=== PATIENT | male | born 1940 | race Caucasian/White ===

== ENCOUNTER 2020-10-24 12:55 | Observation (INO) | payer MEDICARE, MEDICAID, SELFPAY ==
[2020-10-24] VITALS (11 sets, daily range): BP systolic 97–111; BP diastolic 50–88; PULSE 74–84; RESP 14–20; TEMP 36.2; O2SAT 96–99; BMI 36.4
--- NOTE | ~2020-10-24 | CT_ITS ---
EXAMINATION: CT brain wo con DATE: 10/24/2020 14:23 INDICATION: Confusion. Hallucinations. TECHNIQUE: Computed tomography (CT) of the head was performed without intravenous contrast. The mA wa s adjusted according to patient size. Iterative reconstruction technique was employed. The dose-lengt h product was 681.00 mGy-cm. COMPARISON: None FINDINGS: At the right side of the frontal falx, there is a 12 mm calcified mass, consistent with a m eningioma. There is an old infarct in right occipital lobe. There are scattered areas of low attenuat ion in the cerebral white matter. There is no acute ischemic infarct or intracranial hemorrhage. The ventricles are normal in size. There is mucosal thickening in the paranasal sinuses. There is thicken ing and sclerosis of the benz of the sphenoid sinus, consistent with chronic sinusitis. There are tr prince bilateral mastoid effusions. There are likely changes of ocular lens replacement surgeries. IMPRESSION: 1. 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 2. 12 mm meningioma at the right side of the frontal falx. 3. Moderate nonspecific cerebral white matter disease, which likely represents chronic small vessel i schemic disease. 4. Chronic sinusitis. Reviewed, dictated and finalized at location A. IMPRESSION: 1. 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 2. 12 mm meningioma at the right side of the frontal falx. 3. Moderate nonspecific cerebral white matter disease, which likely represents chronic small vessel ischemic disease. 4. Chronic sinusitis.
--- NOTE | ~2020-10-24 | XR_ITS ---
XR chest 1V portable DATE: 10/25/2020 05:45 INDICATION: Shortness of breath TECHNIQUE: Portable AP chest on 10/25/2020 at 0530 hours COMPARISON: None FINDINGS: Cardiomegaly. Aortic calcification. There is pulmonary vascular congestion and redistribution. Small pleural effusions are suggested. There is patchy infiltrate and/atelectasis in the mid and to a greater extent lower lung zones. Conge stive heart failure, pneumonia and aspiration pneumonitis are considerations in the differential diag nosis. Severe bilateral glenohumeral osteoarthritis. Degenerative spurring of the thoracic spine. Diffuse osteopenia. IMPRESSION: Cardiomegaly, congestive heart failure Patchy mid and to a greater extent lower lung zone infiltrates which may be due to pulmonary edema, p neumonia and/or aspiration pneumonitis Reviewed, dictated and finalized at location A. IMPRESSION: Cardiomegaly, congestive heart failure Patchy mid and to a greater extent lower lung zone infiltrates which may be due to pulmonary edema, pneumonia and/or aspiration pneumonitis
--- NOTE | ~2020-10-24 | US_ITS ---
EXAMINATION: US venous doppler [facility] DATE: 10/25/2020 13:01 INDICATION: Lower limb edema TECHNIQUE: Vitale scale images without and with compression and Doppler images of the bilateral lower e xtremity veins were obtained. COMPARISON: None FINDINGS: The right common femoral vein, profunda femoral vein, femoral vein, popliteal vein, peroneal trunk, p osterior tibial veins, and greater saphenous vein are patent. The left common femoral vein, profunda femoral vein, femoral vein, popliteal vein, peroneal trunk, po sterior tibial veins, and greater saphenous vein are patent. IMPRESSION: 1. Patent bilateral lower extremity veins. No evidence of deep venous thrombosis. Reviewed, dictated and finalized at location B. IMPRESSION: 1. Patent bilateral lower extremity veins. No evidence of deep venous thrombosi s.
--- NOTE | 2020-10-24 12:58 | ECG_ITS ---
Measurements Intervals [place] Rate: 74 P: PA: 0 QRS: 105 QRSD: 120 T: 22 QT: 410 QTc: 456 Interpretive Statements ATRIAL FLUTTER/TACHYCARDIA VENTRICULAR PREMATURE COMPLEXES RIGHT AXIS DEVIATION INTRAVENTRICULAR CONDUCTION DELAY LOW VOLTAGE- LIMB LEADS ABNORMAL ECG Electronically Signed On 10-25-2020 7:47:49 CDT by Waqas Shankar D.O.
[2020-10-24 14:57] LABS: Basophils Percent Auto 0.3 % (0.2-1.2); Eosinophils Percent Auto 0.5 % (0-4.4); Hematocrit 29.3 % (42.0-52.0); Hemoglobin 7.9 g/dL (14.0-18.0); Immature Granulocyte Absolute 0.08 K/mm3 (0.00-0.031); Immature Granulocyte Percent A 1.1 % (0-0.5); Immature Platelet Fraction Pct 9.1 % (0.9-11.2); Lymphocytes Absolute Auto 0.42 K/mm3 (0.9-3.2); Lymphocytes Percent Auto 5.7 % (18.3-44.2); Mean Corpuscular Hemoglobin 21.5 pg (26-34); Mean Corpuscular Volume 79.8 fl (80-100); Mean Platelet Volume 10.9 fl (7.4-10.4); Monocytes Absolute Auto 0.9 K/mm3 (0.1-0.6); Monocytes Percent Auto 12.2 % (2.6-8.5); Neutrophils Absolute Auto 5.9 K/mm3 (1.3-6.7); Neutrophils Percent Auto 80.2 % (45.5-73.1); Nucleated Red Blood Cells Perc 0.4 % (0.0-0.2); Platelet Count Result 146 k/mm3 (150-375); Red Blood Count 3.67 M/mm3 (4.6-6.20); White Blood Count 7.3 K/mm3 (4.5-10.0)
[2020-10-24 15:05] LABS: INR 1.1; Prothrombin Time 14.3 Seconds (11.1-14.7)
[2020-10-24 15:11] LABS: Lactic Acid Reflex 0.9 mmol/L (0.7-2.1)
[2020-10-24 15:12] LABS: Alanine Aminotransferase 21 U/L (4-50); Alkaline Phosphatase 105 U/L (38-126); Anion Gap 4 mmol/L (8-16); Aspartate Amino Transferase 22 U/L (17-59); Bilirubin,Total 0.6 mg/dL (0.2-1.3); Blood Urea Nitrogen 39 mg/dL (9-20); Calcium 8.3 mg/dL (8.4-10.2); Carbon Dioxide 29 mmol/L (22-30); Chloride 102 mmol/L (98-107); Estimated CRCL calculation 43 ml/min; Estimated Glomerular Filt Rate 49; Glucose 126 mg/dL (65-110); Potassium 5.3 mmol/L (3.4-5.0); Sodium 135 mmol/L (137-145)
[2020-10-24 15:22] LABS: Hypochromasia 1+ (NORMAL); Platelet Estimate Adequate (Adequate); Poikilocytosis 1+ (NORMAL)
[2020-10-24 15:23] LABS: Anisocytosis 2+ (NORMAL); Ovalocytes 1+ (NORMAL)
[2020-10-24 15:24] LABS: NT Pro B Type Natriuretic Pept 4910 pg/mL (5-100); Troponin I < 0.012 ng/mL (0.000-0.034)
--- NOTE | 2020-10-24 16:07 | PC.NURSE ---
SPOKE WITH VAISHNAVI TIWARI OF PT AND GAVE UPDATE ON PT'S CONDITION.
[2020-10-24 16:32] LABS: Add Urine Microscopic? NO; Appearance Urine Clear (Clear); Bilirubin Urine Negative (Negative); Blood Urine Negative (Negative); Color Urine Yellow (Yellow); Glucose Urine UA Negative (Negative); Ketones Urine Negative (Negative); Leukocyte Esterase Ur Negative LEU/UL (Negative); Nitrate Urine Negative (Negative); Protein Urine Negative (Negative); Specific Grav Ur 1.017 (1.001-1.035); Urobilinogen Urine Negative mg/dL (<2.0)
--- NOTE | 2020-10-24 16:50 | ED.AMS ---
HPI - Altered Mental Status General Chief Complaint: Altered Mental Status Stated Complaint: AMS X 1 WEEK Time Seen by Provider: 10/24/20 13:03 Source: patient and family Mode of arrival: EMS Limitations: altered mental status History of Present Illness HPI narrative: 80-year-old with a history of hypertension diabetes, CHF was brought in by daughter with complaints of marked confusion since this morning as per the daughter patient has been calling his dog anteater , put all the money in the washer and has been disoriented since this morning. Not much of history can be obtained from the patient. He denied any chest pain . No history of fever or chills. Denies any cough. Patient lives by himself at home. MD complaint: altered mental status and confusion Onset (ago): day(s) (1) Timing confirmed by: family member Severity: moderate Associated symptoms: denies other symptoms Related Data Home Medications Medication Instructions Recorded Confirmed dextromethorphan-quinidine cap 10/24/20 [Nuedexta] enalapril maleate 10/24/20 enalapril maleate 10/24/20 10/24/20 furosemide 10/24/20 glipizide mg PO 10/24/20 metformin mg 10/24/20 pantoprazole PO 10/24/20 pregabalin 10/24/20 tamsulosin mg PO 10/24/20 tapentadol [Nucynta ER] mg PO 10/24/20 Allergies Allergy/AdvReac Type Severity Reaction Status Date / Time No Known Allergies Allergy Verified 10/24/20 14:40 Review of Systems Review of Systems: ROS unobtainable: Yes unobtainable due to mental status Exam Narrative: GENERAL: Confused , well-nourished, and in no acute distress. HEAD: Normocephalic, atraumatic. EYES: PERRLA and EOMI.. NECK: Supple. CHEST: No respiratory distress. Bilateral basilar crackles. HEART: Regular rate and rhythm. No murmur heard. Normal peripheral pulses. ABDOMEN: Soft, nontender, nondistended, normal active bowel sounds. Obese abdomen EXTREMITIES: Normal range of motion. 2+ edema. Old bruises noted on both knees. SKIN: Warm, dry, no rash. NEURO: No focal deficits. Alert Course Course Emergency Course: Patient still seems to be confused, informed him about the lab work stockings is not in the room to inform her about the lab work and x-ray findings. We will admit him to the hospital I discussed with Criselda washington admit the patient. Vital Signs Vital signs: Vital Signs Temperature 36.2 C L 10/24/20 13:00 Pulse Rate 84 10/24/20 13:00 Respiratory Rate 14 10/24/20 13:00 Blood Pressure 104/88 10/24/20 13:00 Pulse Oximetry 96 10/24/20 13:00 Temperature 36.2 C L 10/24/20 13:00 Pulse Rate 74 10/24/20 16:42 Respiratory Rate 16 10/24/20 16:42 Blood Pressure 101/67 10/24/20 16:42 Pulse Oximetry 99 10/24/20 16:42 MDM - Altered Mental Status MDM Narrative Medical decision making narrative: With a history of CHF and confusion will do a septic work-up as well as give him Lasix for CHF. Lab Data Result diagrams: 10/24/20 14:48 10/24/20 14:48 Labs: Lab Results 10/24/20 10/24/20 10/24/20 Range/Units 14:47 14:48 14:48 WBC 7.3 (4.5-10.0) K/mm3 RBC 3.67 L (4.6-6.20) M/mm3 Hgb 7.9 L (14.0-18.0) g/dL Hct 29.3 L (42.0-52.0) % MCV 79.8 L (80-100) fl MCH 21.5 L (26-34) pg MCHC 27.0 L (32-36) g/dl RDW 21.0 H (11.5-14.5) % Plt Count 146 L (150-375) k/mm3 MPV 10.9 H (7.4-10.4) fl Immature Gran % (Auto) 1.1 H (0-0.5) % Neut % (Auto) 80.2 H (45.5-73.1) % Lymph % (Auto) 5.7 L (18.3-44.2) % [place] % (Auto) 12.2 H (2.6-8.5) % Eos % (Auto) 0.5 (0-4.4) % Baso % (Auto) 0.3 (0.2-1.2) % Lymph # (Auto) 0.42 L (0.9-3.2) K/mm3 [place] # (Auto) 0.9 H (0.1-0.6) K/mm3 Eos # (Auto) 0.0 (0-0.3) K/mm3 Baso # (Auto) 0.0 (0.0-0.1) K/mm3 Abs Immat Gran (auto) 0.08 H (0.00-0.031) K/mm3 Absolute Neuts (auto) 5.9 (1.3-6.7) K/mm3 Absolute Nucleated RBC 0.0 (0.0-0.012) K/mm3 Nucleated
[2020-10-24] MEDS: NITROGLYCERIN OINTMENT 1 INCH DOSE (18:46)
[2020-10-24] MEDS: FUROSEMIDE INJ 40 MG/4 ML VIAL (18:47)
--- NOTE | 2020-10-24 19:43 | ADMGEN ---
This patient, Zack Orellana, was admitted to Medical Room 244-. Patient/family oriented to hospital policies and general routines including ID bracelet, bed and alarms, visiting hours, pain management, procedures, bathroom and other care routines, personal items, smoking policy, room service/diet, and visiting hours. Information on how to activate the Rapid Response Team has been discussed. Patient/Family are encouraged to report perceived risks to care and to ask questions if they do not understand what they are told or what they should do.
--- NOTE | 2020-10-24 20:45 | PM.IMHP ---
H&P: HPI History of Present Illness Date/Time: 10/24/20 20:45 Chief Complaint: Altered mental status. Narrative: This is an 80-year-old male with hypertension, paroxysmal atrial fibrillation, coronary artery disease, congestive heart failure, chronic respiratory failure on oxygen, GERD, benign prostatic hyperplasia, and diabetes who presented to the emergency department earlier today via EMS for evaluation of altered mental status. At baseline the patient is typically quite spry however over the past 1 week or so his granddaughter has noticed that he has been confused. This morning he was disoriented and exhibiting bizarre behavior such as seeing anteaters in his home and washing money in the washing machine. He had an appointment today with his fitting room checker for an iron infusion though that was not given and instead he was brought to the emergency department. Brain CT showed no acute findings but his labs did show increased BUN and creatinine as well as hyperkalemia. He is uncertain if he has any chronic kidney problems and he has never been seen at this facility before thus it is hard to say if this is acute. He has not had any recent illnesses and has not had any specific complaints according to the granddaughter, who visits him daily. At the time my evaluation the patient is resting comfortably though he is not the greatest historian. He is aware that he is in the hospital but cannot provide me in what situation he was brought here today. He has no complaints and specifically denies fever, chills, sweats, chest pain, shortness of breath, nausea, vomiting, diarrhea, and dysuria. He does not think he has had any falls and denies focal weakness and paresthesias. Of note the patient was recently started on Nuedexta for pseudobulbar affect as granddaughter says he has been having random crying episodes. To my knowledge that is only new medication he has been started on recently. No mention of alcohol or drug use. It is unknown when he last had his pain pump filled or if it even contains medication. He does not use alcohol or illicit substances. Review of Systems Review of Systems: Twelve systems were reviewed with pertinent positives and negatives as per HPI. The accuracy is questionable given the patient's confusion. Except as documented, all other systems were reviewed and are negative. [facility] Past Medical History Medical History (Updated 10/25/20 @ 00:06 by Ashley Olivo PA-C) Arthritis Benign prostatic hyperplasia Chronic pain Patient had a pain pump inserted in February 2019. Chronic respiratory failure with hypoxia, on home oxygen therapy Congestive heart failure Coronary artery disease Gastroesophageal reflux disease History of bleeding peptic ulcer Hypertension Iron deficiency anemia Receives frequent iron infusions. Paroxysmal atrial fibrillation Pseudobulbar affect Spinal stenosis Type 2 diabetes mellitus Surgical History Surgical History (Updated 10/25/20 @ 00:03 by Ashley Olivo PA-C) History of bilateral cataract extraction Family History Family History Father Acute myocardial infarction Sibling Acute myocardial infarction Brain aneurysm Other No problems noted. Mother Breast cancer Social History Social History (Updated 10/25/20 @ 00:04 by Ashley Olivo PA-C) Social History: Healthcare power of assistant attorney general: Lennie Cruz, granddaughter. Code status: Full code. Smoking packs per day: 3 Smoking cigarettes per day: 60.0 Years smoked: 40 Smoking pack-years: 120.00 Smoking status: Former smoker Tobacco type: cigarettes Alcohol intake: never Substance use: never Additional living arrangements comments: The patient lives in his own home in [place]. He ambulates with a walker but uses a wheelchair when he goes outside of the home. 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
[2020-10-24 22:15] LABS: Glucose Point of Care 117 mg/dl (65-105)
[2020-10-25] VITALS (10 sets, daily range): BP systolic 101–120; BP diastolic 41–65; PULSE 57–77; RESP 16–20; TEMP 36.1–36.7; O2SAT 90–98
--- NOTE | 2020-10-25 00:15 | ECHO_ITS ---
Patient Info Name: Zack Orellana Age: 80 years : 1940 Gender: Male Ht: 67 in Wt: 232 lbs BSA: 2.27 m2 HR: 74 bpm BP: 104 / 41 mmHg Heart Rhythm: Sinus Rhythm Technical Quality: Poor Exam Date: 10/25/2020 8:46 AM Exam Location: [facility] Patient Status: Outpatient Admit Date: 10/24/2020 Staff Ordering Physician: Ashley Olivo PA-C Army Ranger: Maria G Tejeda RDCS Attending Provider: Shana Lloyd MD Referring Physician: Geovani JULIAN; Exam Type: CA echo doppler color flow Study Info Indications - ATRIAL FLUTTER, CHF, CAD, HTN Complete two-dimensional, color flow and Doppler transthoracic echocardiogram is performed. Summary 1. Complete two-dimensional, color flow and Doppler transthoracic echocardiogram is performed. 2. Technically suboptimal study due to poor sonographic images. 3. Left ventricular chamber dimension is mildly enlarged. 4. There is moderately increased left ventricular wall thickness. 5. Left ventricular systolic function is preserved, estimated at 50-55%. 6. Left ventricular septal wall motion is abnormal with septal motion related to bundle branch block. 7. The left ventricular diastolic function is abnormal. 8. E/e' 10 is mildly elevated. 9. Left atrial chamber dimension is severely enlarged. 10. Right atrial chamber dimension is moderately enlarged. 11. There is moderate aortic valve sclerosis. 12. The mitral valve has moderately calcified annulus. 13. Moderate pulmonary hypertension, estimated pulmonary arterial systolic pressure is 54 mmHg. Left Ventricle Technically suboptimal study due to poor sonographic images. Left ventricular systolic function is preserved, estimated at 50-55%. Left ventricular chamber dimension is mildly enlarged. There is moderately increased left ventricular wall thickness. Left ventricular septal wall motion is abnormal with septal motion related to bundle branch block. The left ventricular diastolic function is abnormal. E/e' 10 is mildly elevated. Right Ventricle Right ventricular chamber dimension is not well visualized. Left Atria Left atrial chamber dimension is severely enlarged. Right Atria Right atrial chamber dimension is moderately enlarged. Aortic Valve The aortic valve is not well visualized. Cannot determine number of aortic valve leaflets. There is moderate aortic valve sclerosis. There is no aortic valve stenosis. There is no aortic valve regurgitation. Pulmonic Valve There is no pulmonic regurgitation. Mitral Valve The mitral valve has moderately calcified annulus. There is no mitral valve stenosis. There is no mitral valve regurgitation. Tricuspid Valve The tricuspid valve leaflets are not well visualized. There is no tricuspid valve regurgitation. Moderate pulmonary hypertension, estimated pulmonary arterial systolic pressure is 54 mmHg. Pericardium/Pleural There is no pericardial effusion. Inferior Vena Cava Normal inferior vena cava with >50% collapse upon inspiration consistent with normal right atrial pressure, 5 mmHg. Aorta The aortic root size at the sinus of Valsalva is not well visualized. Left Ventricular Outflow Tract Name Value Normal LVOT 2D LVOT Diameter
[2020-10-25 00:59] LABS: Ammonia 27 umol/L (9-30)
[2020-10-25 01:00] LABS: Anion Gap 3 mmol/L (8-16); Blood Urea Nitrogen 37 mg/dL (9-20); Calcium 8.2 mg/dL (8.4-10.2); Carbon Dioxide 29 mmol/L (22-30); Chloride 102 mmol/L (98-107); Estimated CRCL calculation 46 ml/min; Estimated Glomerular Filt Rate 53; Glucose 145 mg/dL (65-110); Magnesium 1.1 mg/dL (1.6-2.3); Potassium 4.9 mmol/L (3.4-5.0); Sodium 134 mmol/L (137-145)
[2020-10-25 01:03] LABS: Hemoglobin A1C 6.3 % (<5.7)
[2020-10-25 02:21] LABS: Alveolar/Arterial O2 Gradient 79.3 mmHg; Base Excess ABG 2.4 mEq/l (+/-2.0); Device NASAL CANNULA; Fractional Inspired Oxygen 32 %; Modified Allen's Test Pass; Oxygen Content ABG 11.5 %vol (16.0-22.0); Oxygen Saturation ABG 95.2 % (95.0-100.0); Oxyhemoglobin 93.1 % THb (90.0-100.0); PCO2 ABG 56.7 mmHg (35.0-45.0); PO2 ABG 82.5 mmHg (80.0-100.0); PO2 FiO2 Ratio Arterial Blood 2.58 %; Site Drawn LEFT RADIAL; Total Hemoglobin 8.7 g/dL (12.0-18.0); pH ABG 7.327 (7.350-7.450)
--- NOTE | 2020-10-25 04:05 | PC.NURSE ---
post void residual 169ml
[2020-10-25 05:29] LABS: Amphetamine Screen Urine Negative (Negative); Barbiturate Screen Urine Negative (Negative); Benzodiazepines Screen Urine Negative (Negative); Cannabinoid Screen Urine Negative (Negative); Cocaine Screen Urine Negative (Negative); Methadone Screen Urine Negative (Negative); Opiate Screen Urine Negative (Negative); Phencyclidine Screen Urine Negative (Negative)
[2020-10-25 05:54] LABS: Hemoglobin 7.8 g/dL (14.0-18.0); Immature Platelet Fraction Pct 9.1 % (0.9-11.2); Mean Corpuscular HGB Conc 26.9 g/dl (32-36); Mean Corpuscular Hemoglobin 21.3 pg (26-34); Platelet Count Result 146 k/mm3 (150-375); Red Blood Count 3.67 M/mm3 (4.6-6.20); Red Cell Distribution Width 20.9 % (11.5-14.5); White Blood Count 6.6 K/mm3 (4.5-10.0)
[2020-10-25 06:24] LABS: Alanine Aminotransferase 19 U/L (4-50); Alkaline Phosphatase 98 U/L (38-126); Anion Gap 6 mmol/L (8-16); Aspartate Amino Transferase 19 U/L (17-59); Bilirubin,Total 0.4 mg/dL (0.2-1.3); Blood Urea Nitrogen 34 mg/dL (9-20); Calcium 8.1 mg/dL (8.4-10.2); Carbon Dioxide 28 mmol/L (22-30); Chloride 97 mmol/L (98-107); Estimated CRCL calculation 54 ml/min; Estimated Glomerular Filt Rate > 60; Glucose 123 mg/dL (65-110); Potassium 4.8 mmol/L (3.4-5.0); Sodium 131 mmol/L (137-145)
[2020-10-25] MEDS: FUROSEMIDE INJ 40 MG/4 ML VIAL IV PUSH ×2 (10:03→17:54)
[2020-10-25] MEDS: ASPIRIN 81 MG CHEWABLE TABLET PO (10:03)
[2020-10-25] MEDS: PANTOPRAZOLE 40 MG TABLET PO (10:03)
[2020-10-25] MEDS: TAMSULOSIN HCL 0.4 MG CAPSULE PO (10:03)
[2020-10-25] MEDS: PREGABALIN (*CRX) 75 MG CAPSULE PO (10:09)
[2020-10-25 10:14] LABS: Glucose Point of Care 127 mg/dl (65-105)
[2020-10-25 12:47] LABS: Glucose Point of Care 148 mg/dl (65-105)
--- NOTE | 2020-10-25 12:51 | P.PNIM_ITS ---
Progress Note: A&P Assessment and Plan (1) Confusion: Code(s): R41.0 - Disorientation, unspecified Status: Acute Assessment and Plan: * Patient came to the ED for evaluation confusion and delirium * No new medications were started recently * Brain CT reports old infarcts no acute finding * No evidence of underlying infection * Chest x-ray shows pulmonary edema versus pneumonia * BUN and creatinine elevated could be dehydration * Telemetry * Labs * Q 4 neuro checks * May need MRI (2) Hypertension: Code(s): I10 - Essential (primary) hypertension Status: Acute Assessment and Plan: * Current blood pressure 104/54 * Marv Enalapril 5mg po daily * Hold home furosemide changing to 40 mg IV daily * Trend blood pressure * Adjust medications as needed as (3) Type 2 diabetes mellitus: Code(s): E11.9 - Type 2 diabetes mellitus without complications Status: Acute Assessment and Plan: * Glipizide and metformin on hold * hemoglobin A1c 6.3 * Initiate sliding scale insulin * Accu-Cheks a.c. HS * hypoglycemic protocol * Adjust medications (4) Iron deficiency anemia: Code(s): D50.9 - Iron deficiency anemia, unspecified Status: Acute Assessment and Plan: * Patient receives infusions frequently and was supposed to have one today. * tool repairer said patient can have a injection * Iron x2 bags ordered * Will start patient on oral iron 325 mg b.i.d. (5) Pseudobulbar affect: Code(s): F48.2 - Pseudobulbar affect Status: Acute Assessment and Plan: * Recently started on Nuedexta. I reviewed the side effects of that medication and there is no mention that it may cause confusion or mental status change. (6) Congestive heart failure: Code(s): I50.9 - Heart failure, unspecified Status: Acute Assessment and Plan: * Trace edema in the extremities * Lasix in the emergency department * Resume p.o. furosemide after 2 doses of IV Lasix * Echocardiogram EF 50-55% moderate pulmonary hypertension pressure 54 * Strict I&Os (7) Paroxysmal atrial fibrillation: Code(s): I48.0 - Paroxysmal atrial fibrillation Status: Acute Assessment and Plan: * EKG today showed atrial flutter with a rate of 74. * not on long-term anticoagulation, presumably due to his chronic anemia. (8) Chronic respiratory failure with hypoxia, on home oxygen therapy: Code(s): J96.11 - Chronic respiratory failure with hypoxia; Z99.81 - Dependence on supplemental oxygen Status: Acute Assessment and Plan: * He is at his baseline oxygen requirement. According to the granddaughter this is a new addition relatively recently. (9) Acute metabolic encephalopathy: Code(s): G93.41 - Metabolic encephalopathy Status: Acute Assessment and Plan: * see confusion (10) Hypomagnesemia: Code(s): E83.42 - Hypomagnesemia Status: Acute Assessment and Plan: * Magnesium 1.1 * Replace with 4 g IV * Trend a magnesium * Replace as needed * Labs in a.m. Time Spent With Patient Time with patient: 25 - 35 minutes Subjective Date/time seen: 10/25/20 11:23 Interval history: Patient is an 80 year old male with a past medical histo
--- NOTE | 2020-10-25 12:51 | PM.IMPN ---
Progress Note: A&P Assessment and Plan (1) Confusion: Code(s): R41.0 - Disorientation, unspecified Status: Acute Assessment and Plan: Patient came to the ED for evaluation confusion and delirium No new medications were started recently Brain CT reports old infarcts no acute finding No evidence of underlying infection Chest x-ray shows pulmonary edema versus pneumonia BUN and creatinine elevated could be dehydration Telemetry Labs Q 4 neuro checks May need MRI (2) Hypertension: Code(s): I10 - Essential (primary) hypertension Status: Acute Assessment and Plan: Current blood pressure 104/54 Marv Enalapril 5mg po daily Hold home furosemide changing to 40 mg IV daily Trend blood pressure Adjust medications as needed as (3) Type 2 diabetes mellitus: Code(s): E11.9 - Type 2 diabetes mellitus without complications Status: Acute Assessment and Plan: Glipizide and metformin on hold hemoglobin A1c 6.3 Initiate sliding scale insulin Accu-Cheks a.c. HS hypoglycemic protocol Adjust medications (4) Iron deficiency anemia: Code(s): D50.9 - Iron deficiency anemia, unspecified Status: Acute Assessment and Plan: Patient receives infusions frequently and was supposed to have one today. direct marketing representative said patient can have a injection Iron x2 bags ordered Will start patient on oral iron 325 mg b.i.d. (5) Pseudobulbar affect: Code(s): F48.2 - Pseudobulbar affect Status: Acute Assessment and Plan: Recently started on Nuedexta. I reviewed the side effects of that medication and there is no mention that it may cause confusion or mental status change. (6) Congestive heart failure: Code(s): I50.9 - Heart failure, unspecified Status: Acute Assessment and Plan: Trace edema in the extremities Lasix in the emergency department Resume p.o. furosemide after 2 doses of IV Lasix Echocardiogram EF 50-55% moderate pulmonary hypertension pressure 54 Strict I&Os (7) Paroxysmal atrial fibrillation: Code(s): I48.0 - Paroxysmal atrial fibrillation Status: Acute Assessment and Plan: EKG today showed atrial flutter with a rate of 74. not on long-term anticoagulation, presumably due to his chronic anemia. (8) Chronic respiratory failure with hypoxia, on home oxygen therapy: Code(s): J96.11 - Chronic respiratory failure with hypoxia; Z99.81 - Dependence on supplemental oxygen Status: Acute Assessment and Plan: He is at his baseline oxygen requirement. According to the granddaughter this is a new addition relatively recently. (9) Acute metabolic encephalopathy: Code(s): G93.41 - Metabolic encephalopathy Status: Acute Assessment and Plan: see confusion (10) Hypomagnesemia: Code(s): E83.42 - Hypomagnesemia Status: Acute Assessment and Plan: Magnesium 1.1 Replace with 4 g IV Trend a magnesium Replace as needed Labs in a.m. Time Spent With Patient Time with patient: 25 - 35 minutes Subjective Date/time seen: 10/25/20 11:23 Interval history: Patient is an 80 year old male with a past medical history of anemia that presented to the ED with confusion from [facility]. Today patient stated that he feels well and has no complaints. He was alert and oriented x 4 and was pretty sharp with information. Patient does have a low hemoglobin at 7.8. Sodium is also low and BNP is 4800. Patient is having good urine output. Patient also has patchy infiltrates noted on his chest x-ray that could be pulmonary edema, pneumonia or aspiration pneumonia. Patient currently has no complaints patient denies chest pain, shortness of breath, nausea, vomiting, diarrhea, constipation, fevers, sweats, chills. Review of Systems Review of Systems:
[2020-10-25] MEDS: MAGNESIUM SULF 4 GM/WATER100ML 4 GM/100 ML BAG IVPB (13:44)
[2020-10-25] MEDS: IRON SUCROSE COMPLEX 100 MG in SODIUM CHLORIDE 0.9% IV 50 ML 220 MG IVPB (17:53)
[2020-10-25] MEDS: FERROUS SULFATE 324 MG TABLET PO (17:54)
[2020-10-25 18:08] LABS: Glucose Point of Care 190 mg/dl (65-105)
[2020-10-25 23:00] LABS: Glucose Point of Care 166 mg/dl (65-105)
[2020-10-26] VITALS: PULSE 75
[2020-10-26 04:00] VITALS: BP 118/50; PULSE 76; PULSE 83; RESP 20; TEMP 36.1; O2SAT 99
[2020-10-26 05:52] LABS: Hematocrit 28.6 % (42.0-52.0); Hemoglobin 7.7 g/dL (14.0-18.0); Mean Corpuscular HGB Conc 26.9 g/dl (32-36); Mean Corpuscular Hemoglobin 20.8 pg (26-34); Mean Corpuscular Volume 77.3 fl (80-100); Platelet Count Result 144 k/mm3 (150-375); Red Cell Distribution Width 20.8 % (11.5-14.5); White Blood Count 5.5 K/mm3 (4.5-10.0)
[2020-10-26 06:16] LABS: Alanine Aminotransferase 15 U/L (4-50); Alkaline Phosphatase 98 U/L (38-126); Anion Gap 3 mmol/L (8-16); Aspartate Amino Transferase 19 U/L (17-59); Bilirubin,Total 0.5 mg/dL (0.2-1.3); Blood Urea Nitrogen 24 mg/dL (9-20); Calcium 8.3 mg/dL (8.4-10.2); Carbon Dioxide 35 mmol/L (22-30); Chloride 93 mmol/L (98-107); Estimated CRCL calculation 66 ml/min; Estimated Glomerular Filt Rate > 60; Glucose 123 mg/dL (65-110); Magnesium 1.4 mg/dL (1.6-2.3); Potassium 4.3 mmol/L (3.4-5.0); Sodium 131 mmol/L (137-145)
[2020-10-26] MEDS: MAGNESIUM SULF 4 GM/WATER100ML 4 GM/100 ML BAG IVPB (07:27)
[2020-10-26 08:00] VITALS: PULSE 78
[2020-10-26] MEDS: IRON SUCROSE COMPLEX 100 MG in SODIUM CHLORIDE 0.9% IV 50 ML 220 MG IVPB (08:25)
[2020-10-26] MEDS: FUROSEMIDE INJ 40 MG/4 ML VIAL IV PUSH (08:26)
[2020-10-26] MEDS: ASPIRIN 81 MG CHEWABLE TABLET PO (08:26)
[2020-10-26] MEDS: FERROUS SULFATE 324 MG TABLET PO (08:26)
[2020-10-26] MEDS: TAMSULOSIN HCL 0.4 MG CAPSULE PO (08:27)
[2020-10-26] MEDS: MAGNESIUM OXIDE 400 MG TABLET PO (08:27)
[2020-10-26] MEDS: PANTOPRAZOLE 40 MG TABLET PO (08:27)
[2020-10-26 08:47] LABS: Glucose Point of Care 114 mg/dl (65-105)
[2020-10-26 09:20] VITALS: BP 125/66; PULSE 78; RESP 16; TEMP 36.2; O2SAT 97
--- NOTE | 2020-10-26 09:59 | P.DS_ITS ---
DS: Admitting Diagnosis Admitting Diagnosis Altered mental status DS: Discharge Diagnosis Discharge Diagnosis (1) Confusion: Code(s): R41.0 - Disorientation, unspecified Status: Acute Assessment and Plan: * Patient came to the ED for evaluation confusion and delirium * No new medications were started recently * Brain CT reports old infarcts no acute finding * No evidence of underlying infection * Chest x-ray shows pulmonary edema versus pneumonia * BUN and creatinine elevated could be dehydration * Telemetry * Labs * Q 4 neuro checks * May need MRI Seems to be resolved at this time. Talked with the grand daughter about asking primary about starting patient on Aricept (2) Hypertension: Code(s): I10 - Essential (primary) hypertension Status: Acute Assessment and Plan: * Current blood pressure 125/66 * Marv Enalapril 5mg po daily * Hold home furosemide changing to 40 mg IV daily * Trend blood pressure * Adjust medications as needed as (3) Type 2 diabetes mellitus: Code(s): E11.9 - Type 2 diabetes mellitus without complications Status: Acute Assessment and Plan: * Glipizide and metformin on hold * hemoglobin A1c 6.3 * Initiate sliding scale insulin * Accu-Cheks a.c. HS * hypoglycemic protocol * Adjust medications (4) Iron deficiency anemia: Code(s): D50.9 - Iron deficiency anemia, unspecified Status: Acute Assessment and Plan: * Patient receives infusions frequently and was supposed to have one today. * elementary school teacher said patient can have a injection * Iron x2 bags ordered * Will start patient on oral iron 325 mg b.i.d. 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 I reviewed the side effects of that medication and there is no mention that it may cause confusion or mental status change. (6) Congestive heart failure: Code(s): I50.9 - Heart failure, unspecified Status: Acute Assessment and Plan: * Trace edema in the extremities * Lasix in the emergency department * Resume p.o. furosemide after 2 doses of IV Lasix * Echocardiogram EF 50-55% moderate pulmonary hypertension pressure 54 * Strict I&Os Change lasix to 40mg PO daily Take 20mg PO PRN for extra coverage (7) Paroxysmal atrial fibrillation: Code(s): I48.0 - Paroxysmal atrial fibrillation Status: Acute Assessment and Plan: * EKG today showed atrial flutter with a rate of 74. * not on long-term anticoagulation, presumably due to his chronic anemia. (8) Chronic respiratory failure with hypoxia, on home oxygen therapy: Code(s): J96.11 - Chronic respiratory failure with hypoxia; Z99.81 - Dependence on supplemental oxygen Status: Acute Assessment and Plan: * He is at his baseline oxygen requirement. According to the granddaughter this is a new addition relatively recently. Continue with [facility] (9) Acute metabolic encephalopathy: Code(s): G93.41 - Metabolic encephalopathy Status: Acute Assessment and Plan: * seems to be resolved * see confusion (10) Hypomagnesemia: Code(s): E83.42 - Hypomagnesemia
--- NOTE | 2020-10-26 09:59 | PM.DS ---
DS: Admitting Diagnosis Admitting Diagnosis Altered mental status DS: Discharge Diagnosis Discharge Diagnosis (1) Confusion: Code(s): R41.0 - Disorientation, unspecified Status: Acute Assessment and Plan: Patient came to the ED for evaluation confusion and delirium No new medications were started recently Brain CT reports old infarcts no acute finding No evidence of underlying infection Chest x-ray shows pulmonary edema versus pneumonia BUN and creatinine elevated could be dehydration Telemetry Labs Q 4 neuro checks May need MRI Seems to be resolved at this time. Talked with the grand daughter about asking primary about starting patient on Aricept (2) Hypertension: Code(s): I10 - Essential (primary) hypertension Status: Acute Assessment and Plan: Current blood pressure 125/66 Marv Enalapril 5mg po daily Hold home furosemide changing to 40 mg IV daily Trend blood pressure Adjust medications as needed as (3) Type 2 diabetes mellitus: Code(s): E11.9 - Type 2 diabetes mellitus without complications Status: Acute Assessment and Plan: Glipizide and metformin on hold hemoglobin A1c 6.3 Initiate sliding scale insulin Accu-Cheks a.c. HS hypoglycemic protocol Adjust medications (4) Iron deficiency anemia: Code(s): D50.9 - Iron deficiency anemia, unspecified Status: Acute Assessment and Plan: Patient receives infusions frequently and was supposed to have one today. director investment banking said patient can have a injection Iron x2 bags ordered Will start patient on oral iron 325 mg b.i.d. 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 I reviewed the side effects of that medication and there is no mention that it may cause confusion or mental status change. (6) Congestive heart failure: Code(s): I50.9 - Heart failure, unspecified Status: Acute Assessment and Plan: Trace edema in the extremities Lasix in the emergency department Resume p.o. furosemide after 2 doses of IV Lasix Echocardiogram EF 50-55% moderate pulmonary hypertension pressure 54 Strict I&Os Change lasix to 40mg PO daily Take 20mg PO PRN for extra coverage (7) Paroxysmal atrial fibrillation: Code(s): I48.0 - Paroxysmal atrial fibrillation Status: Acute Assessment and Plan: EKG today showed atrial flutter with a rate of 74. not on long-term anticoagulation, presumably due to his chronic anemia. (8) Chronic respiratory failure with hypoxia, on home oxygen therapy: Code(s): J96.11 - Chronic respiratory failure with hypoxia; Z99.81 - Dependence on supplemental oxygen Status: Acute Assessment and Plan: He is at his baseline oxygen requirement. According to the granddaughter this is a new addition relatively recently. Continue with [facility] (9) Acute metabolic encephalopathy: Code(s): G93.41 - Metabolic encephalopathy Status: Acute Assessment and Plan: seems to be resolved see confusion (10) Hypomagnesemia: Code(s): E83.42 - Hypomagnesemia Status: Acute Assessment and Plan: Magnesium 1.4 Replace with 4 g IV Trend a magnesium Replace as needed Labs in a.m. MG replaced x2 DS: Summary Hospital Course Reason for hospitalization: date of service 10/26/2020 at 7:15 a.m. Hospital Course: patient 80-year-old male with a past medical history of anemia that presented the ED with confusion. Patient has a long history of iron deficiency anemia in which she goes and gets infusions quite frequently. since admission patient has received to doses of IV iron and was started on oral iron. Hemoglobin hematocrit have been stable
[2020-10-26 10:28] LABS: Transferrin 332 mg/dL (206-381)
[2020-10-26] MEDS: PREGABALIN (*CRX) 75 MG CAPSULE PO (11:09)
[2020-10-26 11:12] LABS: Iron 302 ug/dL (49-181)
[2020-10-26 11:24] LABS: Percent Iron Saturation 70 % (20-50)
[2020-10-26 11:28] LABS: Folic Acid 19.7 ng/mL (2.76->20)
[2020-10-26 12:00] VITALS: PULSE 77
[2020-10-26 13:07] LABS: Glucose Point of Care 133 mg/dl (65-105)
[2020-10-26 13:45] VITALS: BP 113/54; PULSE 80; RESP 16; TEMP 36.1; O2SAT 96
== END 2020-10-26 14:45 | disposition home or self-care (01) ==
LOC: ANHED 17:01 → ANH2MED 10-25 05:45
PROVIDERS: Nurse Practitioner; Physician Assistant; Admitting Provider Hospitalist; Emergency Provider Family Medicine; PCP Internal Medicine; Visit Provider Hospitalist
DX: R41.0 Disorientation, unspecified (principal); F48.2 Pseudobulbar affect; G93.41 Metabolic encephalopathy; E83.42 Hypomagnesemia; I11.0 Hypertensive heart disease with heart failure; I50.9 Heart failure, unspecified; I48.0 Paroxysmal atrial fibrillation; I25.10 Atherosclerotic heart disease of native coronary artery without angina pectoris; J96.11 Chronic respiratory failure with hypoxia; Z99.81 Dependence on supplemental oxygen; N40.0 Benign prostatic hyperplasia without lower urinary tract symptoms; K21.9 Gastro-esophageal reflux disease without esophagitis; E11.9 Type 2 diabetes mellitus without complications; G89.29 Other chronic pain; D32.0 Benign neoplasm of cerebral meninges; Z87.11 Personal history of peptic ulcer disease; D50.9 Iron deficiency anemia, unspecified; Z87.891 Personal history of nicotine dependence; Z79.84 Long term (current) use of oral hypoglycemic drugs; Z79.891 Long term (current) use of opiate analgesic
CPT/HCPCS: 36415; 36600; 51701; 70450; 71045; 80048; 80053; 80307; 81003; 82140; 82607; 82728; 82746; 82805; 82948; 83036; 83540; 83550; 83605; 83735; 83880; 84443; 84466; 84484; 85025; 85027; 85055; 85610; 93005; 93306; 93970; 96374; 96375; 96376; 99285; A9270; G0378; J1756; J1940; J3475

== ENCOUNTER 2020-11-16 11:57 | Observation (INO) | payer MEDICARE, MEDICAID, SELFPAY ==
[2020-11-16] VITALS (19 sets, daily range): BP systolic 105–154; BP diastolic 54–84; PULSE 67–100; RESP 11–20; TEMP 35.8–36.6; O2SAT 92–100; BMI 36.7
--- NOTE | ~2020-11-16 | US_ITS ---
EXAMINATION: US abdomen limited DATE: 11/17/2020 09:40 INDICATION: Elevated liver enzymes TECHNIQUE: Multiple grayscale and Doppler ultrasound images of the abdomen were obtained. COMPARISON: None FINDINGS: The pancreatic body appears normal but is suboptimally visualized. The pancreatic head and tail are not visualized. The proximal inferior vena cava is normal. Liver has normal echogenicity and contour, with a smooth surface. No liver lesion identified. No intrahepatic biliary duct dilation suspected. The central hepatic veins appear mildly prominent. Portal venous flow was seen in the hepatopetal, no rmal direction, but with increased pulsatility. The gallbladder is dilated to 4.9 cm but without abno rmal wall thickening. 1 cm echogenic and shadowing gallstone near the neck of the gallbladder. The co mmon bile duct measures 6-7 mm proximally which is within normal limits for age and with tapering of the more distal common bile duct to 4 mm. Sonographic Ovalle sign was reported as negative by the son ographer. IMPRESSION: 1. Increased pulsatility of the portal vein along with mild dilation of the hepatic veins which can b e seen with congestive heart failure, tricuspid regurgitation or other cause of elevated right heart pressure. 2. Cholelithiasis with a normal-appearing gallbladder with no sonographic Ovalle sign to suggest acut e cholecystitis. Reviewed, dictated and finalized at location A. IMPRESSION: 1. Increased pulsatility of the portal vein along with mild dilation of the hep atic veins which can be seen with congestive heart failure, tricuspid regurgita tion or other cause of elevated right heart pressure. 2. Cholelithiasis with a normal-appearing gallbladder with no sonographic Shira y sign to suggest acute cholecystitis.
--- NOTE | ~2020-11-16 | XR_ITS ---
EXAMINATION: XR chest 1V portable EXAM DATE: 11/16/2020 12:36 INDICATION: Dyspnea, swelling to legs. TECHNIQUE: Portable AP frontal chest x-ray was obtained. Comparison is made to prior examination from 10/25/2020. FINDINGS: There is cardiomegaly and pulmonary vascular congestion. There is indistinct reticulation w ith a bibasal predominance which may indicate pulmonary edema. On confluent pneumonia not excludable. No pneumothorax. Possible small pleural effusions. There is advanced bilateral glenohumeral joint pr imary osteoarthritis. There is no significant interval change. IMPRESSION: 1. Findings consistent with CHF exacerbation. Reviewed, dictated and finalized at location B.
--- NOTE | 2020-11-16 12:06 | ECG_ITS ---
Measurements Intervals [place] Rate: 92 P: GA: 0 QRS: 98 QRSD: 95 T: -25 QT: 355 QTc: 441 Interpretive Statements ATRIAL FLUTTER/TACHYCARDIA VENTRICULAR PREMATURE COMPLEXES RIGHT AXIS DEVIATION DELAYED PRECORDIAL R/S TRANSITION LOW QRS VOLTAGE IN LIMB LEADS BORDERLINE ST-T WAVE ABNORMALITY- INF/HIGH LAT LEADS BASELINE ARTIFACT- I, II, III, AVR, AVL, AVF, V2, V5-V6 ABNORMAL ECG Electronically Signed On 11-16-2020 13:33:28 CDT by Waqas Shankar D.O.
--- NOTE | 2020-11-16 12:21 | ED.GENADULT ---
HPI - General Adult General Chief complaint: Extremity Problem,Nontraumatic Stated complaint: Swelling with CHF Time Seen by Provider: 11/16/20 12:03 Source: RN notes reviewed History of Present Illness HPI narrative: Patient presents to emergency department from home for lower extremity edema. History is per the patient as well as his granddaughter is present the patient has a history of heart failure over the past 2 days he has had increased swelling in his extremities. The patient is normally on 40 mg of Lasix a day but the granddaughters increase that to 60 mg yesterday and today. Patient is chronically on 3 L nasal cannula he denies any chest pain or shortness of breath denies any fevers or chills abdominal pain nausea vomiting Related Data Home Medications Medication Instructions Recorded Confirmed Nucynta ER 50 mg PO Q6H PRN 10/24/20 10/24/20 Nuedexta See Rx Instructions .ROUTE .COMPLEX 10/24/20 10/24/20 enalapril maleate 5 mg PO DAILY 10/24/20 10/24/20 glipizide 2.5 mg PO DAILY PRN 10/24/20 10/24/20 metformin 1,000 mg PO DAILY PRN 10/24/20 10/24/20 pantoprazole 40 mg PO DAILY 10/24/20 10/24/20 pregabalin 75 mg PO DAILY 10/24/20 10/24/20 tamsulosin 0.4 mg PO DAILY 10/24/20 10/24/20 Allergies Allergy/AdvReac Type Severity Reaction Status Date / Time No Known Allergies Allergy Verified 10/24/20 21:09 Review of Systems Review of Systems: Gen.: Denies fevers or chills ENT: Denies congestion Respiratory: Denies shortness of breath or cough CV: Denies chest pain or palpitations GI: Denies abdominal pain nausea, emesis or diarrhea Musculoskeletal: Denies back pain or muscle pain reports lower extremity edema Neuro: Denies numbness, tingling, weakness or focal weakness Skin: Denies rash Except as documented, all other systems reviewed and negative [facility] Past Medical History Medical History (Updated 11/16/20 @ 15:35 by Sunday Julio DO) Anemia Arthritis Benign prostatic hyperplasia Cerebrovascular accident 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 Chronic anemia Chronic pain Patient had a pain pump inserted in February 2019. Chronic respiratory failure with hypoxia, on home oxygen therapy Baseline oxygen requirement is 3 L nasal cannula. Congestive heart failure Echocardiogram on 10/25/2020 showed preserved LV systolic function with an estimated EF of 50 to 55% and abnormal diastolic function. Coronary artery disease Gastroesophageal reflux disease History of bleeding peptic ulcer Hypertension Iron deficiency anemia Receives frequent iron infusions. Moderate pulmonary hypertension Estimated pulmonary arterial systolic pressure was 54 mmHg on echocardiogram dated 10/25/2020. Paroxysmal atrial fibrillation Pseudobulbar affect Spinal stenosis Type 2 diabetes mellitus Hemoglobin A1c was 6.3% on 10/25/2020. Surgical History Surgical History (Updated 10/25/20 @ 00:03 by Ashley Olivo PA-C) History of bilateral cataract extraction Family History Family History Father Acute myocardial infarction Sibling Acute myocardial infarction Brain aneurysm Other No problems noted. Mother Breast cancer Social History Social History (Updated 11/16/20 @ 14:15 by Ashley Olivo PA-C) Social History: Healthcare power of tax attorney: Lennie Cruz, granddaughter. Code status: Full code. Smoking packs per day: 3 Smoking cigarettes per day: 60.0 Years smoked: 40 Smoking pack-years: 120.00 Smoking status: Former smoker Tobacco type: cigarettes Alcohol intake: never Substance use: never Additional living arrangements comments: The patient lives in his own home in [place]. He ambulates with a walker but uses a wheelchair when outside of the home. 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 ? Exam Narrative: EVANGELINA
[2020-11-16 12:29] LABS: Basophils Absolute Auto 0.1 K/mm3 (0.0-0.1); Basophils Percent Auto 0.8 % (0.2-1.2); Eosinophils Absolute Auto 0.2 K/mm3 (0-0.3); Eosinophils Percent Auto 3.3 % (0-4.4); Hematocrit 33.9 % (42.0-52.0); Hemoglobin 8.9 g/dL (14.0-18.0); Immature Granulocyte Absolute 0.04 K/mm3 (0.00-0.031); Immature Granulocyte Percent A 0.6 % (0-0.5); Immature Platelet Fraction Pct 12.2 % (0.9-11.2); Lymphocytes Absolute Auto 0.51 K/mm3 (0.9-3.2); Mean Corpuscular HGB Conc 26.3 g/dl (32-36); Mean Corpuscular Hemoglobin 21.1 pg (26-34); Mean Corpuscular Volume 80.3 fl (80-100); Neutrophils Absolute Auto 4.6 K/mm3 (1.3-6.7); Neutrophils Percent Auto 72.3 % (45.5-73.1); Nucleated Red Blood Cells Perc 0.3 % (0.0-0.2); Platelet Count Result 161 k/mm3 (150-375); Red Blood Count 4.22 M/mm3 (4.6-6.20); Red Cell Distribution Width 22.8 % (11.5-14.5); White Blood Count 6.4 K/mm3 (4.5-10.0)
[2020-11-16 12:35] LABS: INR 1.5
[2020-11-16 12:36] LABS: Partial Thromboplastin Time 34.1 SECONDS (22.3-36.8)
[2020-11-16 12:38] LABS: Anion Gap 6 mmol/L (8-16); Blood Urea Nitrogen 36 mg/dL (9-20); Calcium 8.3 mg/dL (8.4-10.2); Carbon Dioxide 31 mmol/L (22-30); Chloride 96 mmol/L (98-107); Estimated CRCL calculation 38 ml/min; Estimated Glomerular Filt Rate 42; Glucose 87 mg/dL (65-110); Potassium 5.3 mmol/L (3.4-5.0); Sodium 133 mmol/L (137-145)
[2020-11-16 12:56] LABS: NT Pro B Type Natriuretic Pept 9850 pg/mL (5-100); Troponin I 0.074 ng/mL (0.000-0.034)
[2020-11-16 12:58] LABS: Acanthocytes 1+ (NORMAL); Hypochromasia 2+ (NORMAL); Platelet Estimate Adequate (Adequate)
[2020-11-16 12:59] LABS: Poikilocytosis 1+ (NORMAL)
[2020-11-16 13:56] LABS: Add Urine Microscopic? NO; Appearance Urine Clear (Clear); Bilirubin Urine Negative (Negative); Blood Urine Negative (Negative); Color Urine Yellow (Yellow); Glucose Urine UA Negative (Negative); Ketones Urine Negative (Negative); Leukocyte Esterase Ur Negative LEU/UL (Negative); Nitrate Urine Negative (Negative); Protein Urine Negative (Negative); Specific Grav Ur 1.009 (1.001-1.035); Urobilinogen Urine Negative mg/dL (<2.0)
[2020-11-16] MEDS: ASPIRIN 81 MG CHEWABLE TABLET 324 MG PO (14:13)
--- NOTE | 2020-11-16 14:30 | PM.IMHP ---
H&P: HPI History of Present Illness Date/Time: 11/16/20 14:30 Chief Complaint: Increased swelling. Narrative: This is a pleasant 80-year-old male with hypertension, paroxysmal atrial fibrillation/flutter, coronary artery disease with history of multiple stents, congestive heart failure, chronic respiratory failure on oxygen, GERD, benign prostatic hyperplasia, and diabetes who presented to the emergency department earlier today from home for evaluation of increased swelling, particularly in his legs. He is followed by a handyman in [place], Dr. Caban, and typically sees him every 3 months or so although he has not seen him in follow-up since he was hospitalized at this facility not even 1 month ago at which time he was mildly edematous. In any regard he was diuresed with IV Lasix x2 during that most recent stay and reports that he was doing well up until the last couple of days when he developed increasing swelling in his extremities, more so in the lower legs. His granddaughter is in charge of his medications and she increased his Lasix from 40 mg to 60 mg for the last 2 days however his urine output seems to have dropped off and his swelling has continued to worsen. Aside from that he has no other specific complaints, denying that he is more short of breath than usual (on 3 L nasal cannula at baseline). He also denies fever, chills, sweats, cold and flu symptoms, chest pain, pleuritic pain, palpitations, feelings of racing heart, nausea, vomiting, and sweats. Review of Systems Review of Systems: Twelve systems were reviewed with pertinent positives and negatives as per HPI. No cold or flu symptoms. He denies cough. No significant orthopnea or PND. No syncope or near syncope. Reports decreased urine output the past couple of days. Also notes dribbling and feelings of incomplete bladder evacuation. Several years ago he had issues with urinating but has not had problems with urinary retention recently to his knowledge. No dysuria. Except as documented, all other systems were reviewed and are negative. [facility] Past Medical History Medical History Anemia Arthritis Benign prostatic hyperplasia Cerebrovascular accident 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 Chronic anemia Chronic pain Patient had a pain pump inserted in February 2019. Chronic respiratory failure with hypoxia, on home oxygen therapy Baseline oxygen requirement is 3 L nasal cannula. Congestive heart failure Echocardiogram on 10/25/2020 showed preserved LV systolic function with an estimated EF of 50 to 55% and abnormal diastolic function. Coronary artery disease Gastroesophageal reflux disease History of bleeding peptic ulcer Hypertension Iron deficiency anemia Receives frequent iron infusions. Moderate pulmonary hypertension Estimated pulmonary arterial systolic pressure was 54 mmHg on echocardiogram dated 10/25/2020. Paroxysmal atrial fibrillation Pseudobulbar affect Spinal stenosis Type 2 diabetes mellitus Hemoglobin A1c was 6.3% on 10/25/2020. Surgical History Surgical History (Updated 11/16/20 @ 20:57 by Ashley Olivo PA-C) History of bilateral cataract extraction History of hernia repair Family History Family History Father Acute myocardial infarction Sibling Acute myocardial infarction Brain aneurysm Other No problems noted. Mother Breast cancer Social History Social History Social History: Healthcare power of contract attorney: Lennie Cruz, granddaughter. Code status: Full code. Smoking packs per day: 1 Smoking cigarettes per day: 20.0 Years smoked: 15 Smoking pack-years: 15.00 Smoking status: Former smoker Tobacco type: cigarettes Alcohol intake: never Substance use: never Additional living arrangements commen
--- NOTE | 2020-11-16 16:44 | PM.CNCAR ---
Assessment and Plan Assessment and plan (1) CHF (congestive heart failure): Code(s): I50.9 - Heart failure, unspecified Status: Acute Assessment and Plan: Probably both acute on chronic mild systolic and diastolic heart failure. Lasix 40 mg IV daily as he has acute renal failure. Monitor electrolytes and kidney function. (2) Elevated troponin: Code(s): R77.8 - Other specified abnormalities of plasma proteins Status: Acute Assessment and Plan: Slightly elevated. Probably related to CHF and doubt ACS as no symptoms to suggest it.Trend troponin to peak. (3) Atrial flutter: Code(s): I48.92 - Unspecified atrial flutter Status: Acute Assessment and Plan: [id number] 5. On aspirin, probably due to significant anemia. Rate is normal. (4) Coronary artery disease: Code(s): I25.10 - Atherosclerotic heart disease of [place] coronary artery without angina pectoris Status: Inactive Assessment and Plan: Stable. (5) Type 2 diabetes mellitus: Code(s): E11.9 - Type 2 diabetes mellitus without complications Status: Acute Assessment and Plan: Managed by hospitalist. (6) Iron deficiency anemia: Code(s): D50.9 - Iron deficiency anemia, unspecified Status: Acute Assessment and Plan: Managed by hospitalist. (7) Chronic respiratory failure with hypoxia, on home oxygen therapy: Code(s): J96.11 - Chronic respiratory failure with hypoxia; Z99.81 - Dependence on supplemental oxygen Status: Acute Assessment and Plan: Diurese with Lasix IV to improve oxygenation. History of Present Illness History of Present Illness Consult date/time: 11/16/20 16:44 Reason for consult: CHF. 80 yr old man presents to ER due to edema of legs. His regular administrative services director is at [facility], Dr. Crain (spelling?), and sees him regularly and last was 3 months ago. He has a history of CHF, CAD with KS and several stents (last cath about 3 years ago per patient), atrial fib/flutter, DM, hypertension, iron deficiency anemia requiring iron infusions. Reports that he noted more edema of legs and hands so his granddaughter increased his Lasix from 40 mg to 60 mg daily recently but edema did not go away so he came to ER. He can walk with his cane about 20 feet and gets BARRAZA which is chronic for him. He is on 3 l/m of oxygen at home. Denies chest pain, sob, orthopnea, PND, dizziness, palpitations. EKG shows atrial flutter at 92 bpm. CXR shows CHF. Sodium 133, potassium 5.3, Cr 1.6/Cr Cl 38. An echo on 10/25/20 EF 50-55%, diastolic dysfunction (E/e' 10), severe LAE, mod GULSHAN, mod MAC, RVSP 54 mmHg. Reason For Visit: CHF, Elevated Troponin, Acute Renal Insufficiency Review of Systems Constitutional: Constitutional: Reports as per HPI, Denies chills and Denies fever(s) Cardiovascular: Cardiovascular: Reports as per HPI, Denies chest pain, Denies irregular heart rhythm, Reports leg edema and Denies lightheadedness Respiratory: Respiratory: Reports as per HPI and Reports dyspnea on exertion Gastrointestinal: Gastrointestinal: Reports as per HPI and Denies abdominal pain Genitourinary: Genitourinary: Reports as per HPI and Denies dysuria Musculoskeletal: Musculoskeletal: Reports as per HPI Neurologic: Reports as per HPI, Denies dizziness and Denies syncope [facility] Past Medical History Medical History (Updated 11/16/20 @ 16:53 by Waqas Shankar DO) Anemia Arthritis Benign prostatic hyperplasia Cerebrovascular accident 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 Chronic anemia Chronic pain Patient had a pain pump inserted in February 2019. Chronic respiratory failure with hypoxia, on home oxygen therapy Baseline oxygen requirement is 3 L nasal cannula. Congestive heart failure Echocardiogram on 10/25/2020 showed preserved LV systolic function with an estimated EF of 50 to 55% and abnormal diastolic func
--- NOTE | 2020-11-16 16:46 | PC.NURSE ---
This patient, Zack Orellana, was admitted to IMU Room 204-01. Patient/family oriented to hospital policies and general routines including ID bracelet, bed and alarms, visiting hours, pain management, procedures, bathroom and other care routines, personal items, smoking policy, room service/diet, and visiting hours. Information on how to activate the Rapid Response Team has been discussed. Patient/Family are encouraged to report perceived risks to care and to ask questions if they do not understand what they are told or what they should do.
[2020-11-16] MEDS: FUROSEMIDE INJ 40 MG/4 ML VIAL IV PUSH (17:10)
[2020-11-16 19:13] LABS: Troponin I 0.077 ng/mL (0.000-0.034)
[2020-11-16 20:35] LABS: Troponin I 0.074 ng/mL (0.000-0.034)
[2020-11-16 22:01] LABS: Anion Gap 7 mmol/L (8-16); Blood Urea Nitrogen 37 mg/dL (9-20); Calcium 8.2 mg/dL (8.4-10.2); Carbon Dioxide 29 mmol/L (22-30); Chloride 94 mmol/L (98-107); Estimated CRCL calculation 40 ml/min; Estimated Glomerular Filt Rate 45; Glucose 108 mg/dL (65-110); Magnesium 1.8 mg/dL (1.6-2.3); Potassium 4.8 mmol/L (3.4-5.0); Sodium 130 mmol/L (137-145)
[2020-11-17] VITALS (15 sets, daily range): BP systolic 96–137; BP diastolic 50–71; PULSE 73–85; RESP 14–20; TEMP 36.1–36.9; O2SAT 90–100
--- NOTE | 2020-11-17 | ECHO_ITS ---
Patient Info Name: Zack Orellana Age: 80 years : 1940 Gender: Male Ht: 67 in Wt: 236 lbs BSA: 2.30 m2 HR: 79 bpm BP: 116 / 71 mmHg Heart Rhythm: Atrial Flutter Technical Quality: Poor Exam Date: 11/17/2020 7:30 AM Exam Location: [facility] Patient Status: Inpatient Admit Date: 11/16/2020 Staff Ordering Physician: Waqas Shankar DO Maintenance Craftsman: Sarah Sandhu [facility] Attending Provider: Gaviota Desai PA-C Referring Physician: Raad KEATING; Exam Type: CA echo limited w contrast Study Info Complete two-dimensional, color flow and Doppler transthoracic echocardiogram is performed with agitated saline. Contrast/Agitated Saline Contrast/Ag. Saline: Definity Amount: 44.00 ml Summary 1. Technically suboptimal study due to poor sonographic images. 2. Definity contrast administered improved wall motion interpretation. 3. Left ventricular chamber dimension is normal. 4. Left ventricular systolic function is moderately reduced, estimated at 40-45%. 5. The left ventricular diastolic function is abnormal. 6. Average E' 0.11 suggestive of diastolic dysfunction. Left Ventricle Definity contrast administered improved wall motion interpretation. Average E' 0.11 suggestive of diastolic dysfunction. Technically suboptimal study due to poor sonographic images. Left ventricular chamber dimension is normal. Left ventricular systolic function is moderately reduced, estimated at 40-45%. The left ventricular diastolic function is abnormal. Tricuspid Valve Name Value Normal TV Regurgitation Doppler TR Peak Velocity 298 cm/s TR Peak Gradient 35 mmHg Ventricles Name Value Normal LV Fractional Shortening/Ejection Fraction 2D/MM LV Diastolic Volume (4C MOD) 93 ml LV EF (4C MOD) 43 % LV Diastolic Volume (2C MOD) 85 ml LV Diastolic Length (4C) 9.1 cm LV Systolic Length (4C) 8.0 cm LV Stroke Volume (4C MOD) 40 ml Report Signatures
[2020-11-17 05:47] LABS: Basophils Percent Auto 0.7 % (0.2-1.2); Eosinophils Absolute Auto 0.3 K/mm3 (0-0.3); Eosinophils Percent Auto 5.5 % (0-4.4); Hemoglobin 8.4 g/dL (14.0-18.0); Immature Granulocyte Absolute 0.04 K/mm3 (0.00-0.031); Immature Granulocyte Percent A 0.9 % (0-0.5); Lymphocytes Absolute Auto 0.38 K/mm3 (0.9-3.2); Lymphocytes Percent Auto 8.4 % (18.3-44.2); Mean Corpuscular HGB Conc 26.3 g/dl (32-36); Mean Corpuscular Hemoglobin 21.3 pg (26-34); Mean Corpuscular Volume 81.2 fl (80-100); Monocytes Absolute Auto 0.7 K/mm3 (0.1-0.6); Monocytes Percent Auto 14.6 % (2.6-8.5); Neutrophils Absolute Auto 3.2 K/mm3 (1.3-6.7); Neutrophils Percent Auto 69.9 % (45.5-73.1); Platelet Count Result 126 k/mm3 (150-375); Red Blood Count 3.94 M/mm3 (4.6-6.20); Red Cell Distribution Width 22.1 % (11.5-14.5); White Blood Count 4.5 K/mm3 (4.5-10.0)
[2020-11-17 06:02] LABS: Anion Gap 6 mmol/L (8-16); Blood Urea Nitrogen 35 mg/dL (9-20); Calcium 7.9 mg/dL (8.4-10.2); Carbon Dioxide 32 mmol/L (22-30); Chloride 96 mmol/L (98-107); Estimated CRCL calculation 47 ml/min; Estimated Glomerular Filt Rate 53; Glucose 82 mg/dL (65-110); Potassium 4.5 mmol/L (3.4-5.0); Sodium 134 mmol/L (137-145)
[2020-11-17 06:13] LABS: Alanine Aminotransferase 469 U/L (4-50); Albumin Level 3.3 g/dL (3.5-5.1); Alkaline Phosphatase 105 U/L (38-126); Aspartate Amino Transferase 540 U/L (17-59); Bilirubin,Total 0.9 mg/dL (0.2-1.3)
[2020-11-17 06:55] LABS: Hypochromasia 2+ (NORMAL); Platelet Estimate Decreased (Adequate)
[2020-11-17 06:56] LABS: Helmet Cells 1+ (NORMAL); Ovalocytes 2+ (NORMAL); Polychromasia 1+ (NORMAL)
[2020-11-17 08:14] LABS: Glucose Point of Care 100 mg/dl (65-105)
--- NOTE | 2020-11-17 08:29 | PM.IMPN ---
Progress Note: A&P Assessment and Plan (1) Acute exacerbation of congestive heart failure: Code(s): I50.9 - Heart failure, unspecified Status: Acute Assessment and Plan: Acute on chronic systolic and diastolic failure on exam and on imaging -continue IV Lasix 40 mg daily, monitor kidney function -echo pending -patient's symptoms improving -troponins flat, no ACS suspected. No chest pain (2) Atrial flutter: Code(s): I48.92 - Unspecified atrial flutter Status: Acute Assessment and Plan: Rate controlled -Chads 2 Vasc is 5 though he is not on long-term anticoagulation due to history of bleeding gastric ulcer -patient sees a accounting machine servicer at [facility] (3) Elevated troponin: Code(s): R77.8 - Other specified abnormalities of plasma proteins Status: Acute Assessment and Plan: Likely related to congestive heart failure and renal insufficiency -no chest pain on exam, ACS less likely -echo ordered (4) Electrolyte abnormality: Code(s): E87.8 - Other disorders of electrolyte and fluid balance, not elsewhere classified Status: Acute Assessment and Plan: Improved, sodium 134 and potassium now 4.5 -monitor with daily labs (5) Renal failure: Code(s): N19 - Unspecified kidney failure Status: Acute Assessment and Plan: Baseline creatinine is not known as he was admitted to the hospital on 10/24/2020 with creatinine of 1.4 though that improved to 0.90 with diuresis -creatinine improved to 1.3 today -UA without concerns for renal failure or UTI -hold off on renal ultrasound at this time, if it worsens will obtain at a later date (6) Chronic anemia: Code(s): D64.9 - Anemia, unspecified Status: Acute Assessment and Plan: Last hemoglobin 8.4, consistent with baseline -no signs of bleeding -history of gastric ulcer, continue Protonix (7) Hypertension: Code(s): I10 - Essential (primary) hypertension Status: Acute Assessment and Plan: Last blood pressure 116/71 -continue Lasix -enalapril on hold (8) Type 2 diabetes mellitus: Code(s): E11.9 - Type 2 diabetes mellitus without complications Status: Acute Assessment and Plan: Last glucose 100 -Recent hemoglobin A1c was 6.7%. -Glipizide and metformin on hold given renal failure -continue sliding scale insulin, Accu-Cheks, and hypoglycemic protocol. (9) Chronic respiratory failure with hypoxia, on home oxygen therapy: Code(s): J96.11 - Chronic respiratory failure with hypoxia; Z99.81 - Dependence on supplemental oxygen Status: Acute Assessment and Plan: Patient is on 2 L at home of oxygen with exertion only. He does not usually use this at rest -wean oxygen as tolerated (10) Transaminitis: Code(s): R74.01 - Elevation of levels of liver transaminase levels Status: Acute Assessment and Plan: AST 540 and ALT 469 -patient has no history of liver disease and does not drink alcohol -passive congestion? -obtain right upper quadrant ultrasound and hepatitis panel -monitor closely Time Spent With Patient Time with patient: 25 - 35 minutes Subjective Date/time seen: 11/17/20 08:29 Interval history: Pt is a 80-year-old male here for CHF exacerbation. Patient was seen today and states he is feeling better. His swelling has improved. He has no shortness of breaths but is wearing oxygen at this time. He denies orthopnea, chest pain, abdominal pain, fevers, chills or cold-like symptoms. He has no history of liver disease. He sees a accounting machine servicer at [facility]. He is not on any anticoagulation due to a past bleeding ulcer. Review of Systems Review of Systems: All systems reviewed & are unremarkable except as noted in HPI and below Exam Narrative: General: Overweight patient resting comfortably in bed in no acute distress
--- NOTE | 2020-11-17 08:32 | PM.PNCARD ---
Progress Note: A&P Assessment and Plan (1) CHF (congestive heart failure): Code(s): I50.9 - Heart failure, unspecified Status: Acute Assessment and Plan: Probably both acute on chronic mild systolic and diastolic heart failure. Lasix 40 mg IV daily as he has acute renal failure. Monitor renal function and electrolytes. Obtain limited echo to assess EF and diastolic function. This is being done now with service technician copier at bedside. (2) Elevated troponin: Code(s): R77.8 - Other specified abnormalities of plasma proteins Status: Acute Assessment and Plan: Slightly elevated and flat. Probably related to CHF and doubt ACS as no symptoms to suggest it. (3) Atrial flutter: Code(s): I48.92 - Unspecified atrial flutter Status: Acute Assessment and Plan: [id number] 5. On aspirin 81 mg daily. He reports he used to be on Eliquis until he had bleeding gastric ulcer and no longer on anticoagulation since. He also has significant anemia. Rate is normal. (4) Coronary artery disease: Code(s): I25.10 - Atherosclerotic heart disease of [place] coronary artery without angina pectoris Status: Inactive Assessment and Plan: Stable. He is not on statin for unknown reasons and patient does not know why either. However, given acute liver enzyme elevation will hold off on starting a statin. His regular business continuity analyst is Dr. Caban at [facility]. (5) Type 2 diabetes mellitus: Code(s): E11.9 - Type 2 diabetes mellitus without complications Status: Acute Assessment and Plan: Managed by hospitalist. (6) Iron deficiency anemia: Code(s): D50.9 - Iron deficiency anemia, unspecified Status: Acute Assessment and Plan: Managed by hospitalist. (7) Chronic respiratory failure with hypoxia, on home oxygen therapy: Code(s): J96.11 - Chronic respiratory failure with hypoxia; Z99.81 - Dependence on supplemental oxygen Status: Acute Assessment and Plan: Diurese with Lasix IV to improve oxygenation. (8) Transaminitis: Code(s): R74.01 - Elevation of levels of liver transaminase levels Status: Acute Assessment and Plan: Could be due to passive congestion or other. Need to monitor and workup. Subjective Date/time seen: 11/17/20 08:32 Denies chest pain or sob. States swelling in his hands and legs improved overnight. Exam Const: General: cooperative, healthy appearing and comfortable Nutritional Appearance: obese Resp: Auscultation: crackles, no rhonchi and no wheezes Cardio: Jugular venous distension: no JVD Rate: regular rate Rhythm: abnormal rhythm Heart sounds: no murmurs GI: GI Palp: No abdominal tenderness and Yes Soft to palpation Neuro: General: oriented to person, oriented to place and oriented to time Extrem: Right lower extremity: no edema Left lower extremity: no edema Objective Data Vital Signs Vital Signs: Vital Signs - 24 hr 11/16/20 12:03 11/16/20 13:23 11/16/20 14:11 Temperature 97.9 F Pulse Rate 100 89 91 Respiratory Rate 14 12 13 Blood Pressure 154/84 H 105/54 L 119/63 Pulse Oximetry 96 98 100 11/16/20 14:12 11/16/20 14:15 11/16/20 14:36 Temperature Pulse Rate 72 73 73 Respiratory Rate 11 L 12 13 Blood Pressure Pulse Oximetry 100 100 11/16/20 14:45 11/16/20 15:00 11/16/20 15:01 Temperature Pulse Rate 75 67 72 Respiratory Rate 12 13 13 Blood Pressure 116/63 Pulse Oximetry 98 11/16/20 15:15 11/16/20 15:35 11/16/20 16:29 Temperature Pulse Rate 72 72 73 Respiratory Rate 12 16 12 Blood Pressure Pulse Oximetry 98 11/16/20 16:30 11/16/20 16:31 11/16/20 16:46 Temperature Pulse Rate 74 74 Respiratory Rate 15 12 Blood Pressure 113/65 Pulse Oximetry 98 96 11/16/20 17:09 11/16/20 18:00 11/16/20 20:00 Temperature 96.5 F L 97.8 F Pulse Rate 76 82 85 Respiratory Rate 20 20 Blood Pressure 128/64 131/73 Pulse
[2020-11-17] MEDS: FERROUS SULFATE 324 MG TABLET PO ×2 (10:50→17:39)
[2020-11-17] MEDS: PANTOPRAZOLE 40 MG TABLET PO (10:50)
[2020-11-17] MEDS: MAGNESIUM OXIDE 400 MG TABLET PO ×2 (10:50→17:39)
[2020-11-17] MEDS: TAMSULOSIN HCL 0.4 MG CAPSULE PO (10:51)
[2020-11-17] MEDS: FUROSEMIDE INJ 40 MG/4 ML VIAL IV PUSH (10:51)
[2020-11-17] MEDS: ASPIRIN 81 MG CHEWABLE TABLET PO (10:51)
[2020-11-17 10:53] LABS: Glucose Point of Care 106 mg/dl (65-105)
[2020-11-17] MEDS: PREGABALIN (*CRX) 75 MG CAPSULE PO (10:53)
[2020-11-17 11:59] LABS: Glucose Point of Care 123 mg/dl (65-105)
--- NOTE | 2020-11-17 15:33 | PHAR ---
HOME MEDICATION VERIFIED BY PHARMACY: NUEDEXTA (DEXTROMETHORPHAN AND QUINIDINE) TAKE 1 CAPSULE PO EVERY 12 HOURS (ENTERED INCORRECTLY IN [employer]) RX#[phone]
[2020-11-17 15:39] LABS: Glucose Point of Care 161 mg/dl (65-105)
--- NOTE | 2020-11-17 18:34 | PC.NURSE ---
This patient, Zack Orellana, was transferred to [ [id number]] on 11/17/20 at 1834. Personal belongings sent with patient. Report given to [Jessica GRIMES ]. Appropriate documentation sent with patient.
--- NOTE | 2020-11-17 18:40 | PC.NURSE ---
Received from [facility] / via bed.
[2020-11-17] MEDS: DONEPEZIL HCL 5 MG TABLET PO (21:06)
[2020-11-17] MEDS: traZODone HCL 50 MG TABLET PO (21:07)
[2020-11-17 21:12] LABS: Glucose Point of Care 113 mg/dl (65-105)
[2020-11-18] VITALS (10 sets, daily range): BP systolic 102–137; BP diastolic 50–57; PULSE 60–82; RESP 18–20; TEMP 36.1–36.3; O2SAT 93–100
[2020-11-18 06:17] LABS: Hematocrit 31.5 % (42.0-52.0); Hemoglobin 8.4 g/dL (14.0-18.0)
[2020-11-18 06:28] LABS: Alanine Aminotransferase 372 U/L (4-50); Albumin Level 3.1 g/dL (3.5-5.1); Alkaline Phosphatase 113 U/L (38-126); Aspartate Amino Transferase 295 U/L (17-59); Bilirubin,Total 0.9 mg/dL (0.2-1.3); Blood Urea Nitrogen 25 mg/dL (9-20); Calcium 7.9 mg/dL (8.4-10.2); Carbon Dioxide > 40 mmol/L (22-30); Chloride 93 mmol/L (98-107); Estimated CRCL calculation 60 ml/min; Estimated Glomerular Filt Rate > 60; Glucose 114 mg/dL (65-110); Phosphorus 2.8 mg/dL (2.5-4.5); Potassium 3.8 mmol/L (3.4-5.0); Sodium 133 mmol/L (137-145)
[2020-11-18 07:32] LABS: Glucose Point of Care 125 mg/dl (65-105)
--- NOTE | 2020-11-18 08:26 | PM.PNCARD ---
Progress Note: A&P Assessment and Plan (1) CHF (congestive heart failure): Code(s): I50.9 - Heart failure, unspecified Status: Acute Assessment and Plan: Probably both acute on chronic mild systolic and diastolic heart failure. Lasix 40 mg IV daily with resolution of symptoms and edema. Limited echo to assess EF and diastolic function shows technically suboptimal study but with definity EF is about 40-45%, diastolic dysfunction, (mod TR was also seen). Change Lasix 40 mg IV daily to 40 mg PO BID. He was taking 40 mg daily at home. July d/c home from cardiology standpoint to f/u with his regular computer aide, Dr. Caban at [facility] in 1 week. (2) Elevated troponin: Code(s): R77.8 - Other specified abnormalities of plasma proteins Status: Deleted Assessment and Plan: Slightly elevated and flat. Probably related to CHF and doubt ACS as no symptoms to suggest it. (3) Atrial flutter: Code(s): I48.92 - Unspecified atrial flutter Status: Acute Assessment and Plan: [id number] 5. On aspirin 81 mg daily. He reports he used to be on Eliquis until he had bleeding gastric ulcer and no longer on anticoagulation since. He also has significant anemia. Rate is normal. (4) Coronary artery disease: Code(s): I25.10 - Atherosclerotic heart disease of [place] coronary artery without angina pectoris Status: Inactive Assessment and Plan: Stable. He is not on statin for unknown reasons and patient does not know why either. However, given acute liver enzyme elevation will hold off on starting a statin. His regular computer aide is Dr. Caban at [facility]. (5) Type 2 diabetes mellitus: Code(s): E11.9 - Type 2 diabetes mellitus without complications Status: Acute Assessment and Plan: Managed by hospitalist. (6) Iron deficiency anemia: Code(s): D50.9 - Iron deficiency anemia, unspecified Status: Acute Assessment and Plan: Managed by hospitalist. (7) Chronic respiratory failure with hypoxia, on home oxygen therapy: Code(s): J96.11 - Chronic respiratory failure with hypoxia; Z99.81 - Dependence on supplemental oxygen Status: Acute Assessment and Plan: Diurese with Lasix IV to improve oxygenation. (8) Transaminitis: Code(s): R74.01 - Elevation of levels of liver transaminase levels Status: Acute Assessment and Plan: Probably due to passive congestion with mod TR and pulm hypertension. AST and ALT are improving. Subjective Date/time seen: 11/18/20 08:26 Denies chest pain or sob. Exam Const: General: cooperative, healthy appearing and comfortable Nutritional Appearance: obese Resp: Auscultation: crackles, no rhonchi and no wheezes Cardio: Jugular venous distension: no JVD Rate: regular rate Rhythm: abnormal rhythm Heart sounds: no murmurs GI: GI Palp: No abdominal tenderness and Yes Soft to palpation Neuro: General: oriented to person, oriented to place and oriented to time Extrem: Right lower extremity: no edema Left lower extremity: no edema Objective Data Vital Signs Vital Signs: Vital Signs - 24 hr 11/17/20 10:00 11/17/20 12:00 11/17/20 14:00 Temperature 98.4 F Pulse Rate 79 78 81 Respiratory Rate 20 Blood Pressure 137/57 L Pulse Oximetry 90 11/17/20 15:40 11/17/20 16:00 11/17/20 18:00 Temperature 98 F Pulse Rate 75 74 73 Respiratory Rate 14 Blood Pressure 113/57 L Pulse Oximetry 93 11/17/20 19:00 11/17/20 20:00 11/17/20 20:52 Temperature 98.1 F 97 F L Pulse Rate 80 75 75 Respiratory Rate 18 20 Blood Pressure 118/50 L 108/56 L Pulse Oximetry 99 93 100 11/18/20 00:00 11/18/20 04:41 11/18/20 05:39 Temperature 96.9 F L 97.4 F L Pulse Rate 60 74 71 Respiratory Rate 18 20 Blood Pressure 137/51 L 102/54 L Pulse Oximetry 93 98 Intake/Output Intake/Output: Intake & Output 11/15/20 11/16/20 11/17/20
[2020-11-18] MEDS: FERROUS SULFATE 324 MG TABLET PO ×2 (08:56→17:03)
[2020-11-18] MEDS: ASPIRIN 81 MG CHEWABLE TABLET PO (08:57)
[2020-11-18] MEDS: TAMSULOSIN HCL 0.4 MG CAPSULE PO (08:57)
[2020-11-18] MEDS: PANTOPRAZOLE 40 MG TABLET PO (08:57)
[2020-11-18] MEDS: MAGNESIUM OXIDE 400 MG TABLET PO ×2 (08:57→17:03)
[2020-11-18] MEDS: PREGABALIN (*CRX) 75 MG CAPSULE PO (09:00)
--- NOTE | 2020-11-18 09:05 | PM.IMPN ---
Progress Note: A&P Assessment and Plan (1) Acute exacerbation of congestive heart failure: Code(s): I50.9 - Heart failure, unspecified Status: Acute Assessment and Plan: Acute on chronic systolic and diastolic failure on exam and on imaging -echo showing EF 40-45% with -pt also has untreated MALLORY -continue IV lasix changed to oral lasix -patient's symptoms improving, continue to wean o2 -troponins flat, no ACS suspected. No chest pain (2) Atrial flutter: Code(s): I48.92 - Unspecified atrial flutter Status: Acute Assessment and Plan: Rate controlled -Chads 2 Vasc is 5 though he is not on long-term anticoagulation due to history of bleeding gastric ulcer -patient sees a typewriter tester at [facility] (3) Elevated troponin: Code(s): R77.8 - Other specified abnormalities of plasma proteins Status: Acute Assessment and Plan: Likely related to congestive heart failure and renal insufficiency -no chest pain on exam, ACS less likely -echo reviewed (4) Electrolyte abnormality: Code(s): E87.8 - Other disorders of electrolyte and fluid balance, not elsewhere classified Status: Acute Assessment and Plan: Improved, sodium 133 and potassium now 3.8 -monitor with daily labs -co2 elevated likely due to lasix. Changed to PO (5) Renal failure: Code(s): N19 - Unspecified kidney failure Status: Acute Assessment and Plan: Baseline creatinine is not known as he was admitted to the hospital on 10/24/2020 with creatinine of 1.4 though that improved to 1.0 with diuresis -UA without concerns for renal failure or UTI -hold off on renal ultrasound at this time, if it worsens will obtain at a later date (6) Chronic anemia: Code(s): D64.9 - Anemia, unspecified Status: Acute Assessment and Plan: Last hemoglobin 8.4, consistent with baseline -no signs of bleeding -history of gastric ulcer, continue Protonix (7) Hypertension: Code(s): I10 - Essential (primary) hypertension Status: Acute Assessment and Plan: Last blood pressure 102/54 but asymptomatic -enalapril on hold -IV lasix changed to oral. Will place parameters (8) Type 2 diabetes mellitus: Code(s): E11.9 - Type 2 diabetes mellitus without complications Status: Acute Assessment and Plan: Last glucose 125 -Recent hemoglobin A1c was 6.7%. -Glipizide and metformin on hold given renal failure -continue sliding scale insulin, Accu-Cheks, and hypoglycemic protocol. (9) Chronic respiratory failure with hypoxia, on home oxygen therapy: Code(s): J96.11 - Chronic respiratory failure with hypoxia; Z99.81 - Dependence on supplemental oxygen Status: Acute Assessment and Plan: Patient is on 3 L at home of oxygen with exertion only. He does not usually use this at rest -wean oxygen as tolerated (10) Transaminitis: Code(s): R74.01 - Elevation of levels of liver transaminase levels Status: Acute Assessment and Plan: AST 540 and ALT 469 on admission now 295 and 372 respectively -patient has no history of liver disease and does not drink alcohol -ultrasound shows evidence of passive congestion -obtain hepatitis panel tomorrow morning, patient states he has no history of this -monitor closely, trending down -will likely need these repeated outpatient Additional Plan Patient is improving, plan to discharge hopefully in the next 1-2 days once patient is at his baseline oxygen and liver enzymes have improved Subjective Date/time seen: 11/18/20 09:05 Interval history: Pt is a 80-year-old male here for CHF exacerbation. Patient was seen today and states he is feeling better. He says his swelling has resolved and he does not have further shortness of breath. He has been up walking to the bathroom and doing okay. He is not usually on oxygen at rest, however. He
[2020-11-18] MEDS: FUROSEMIDE 40 MG TABLET PO ×2 (09:50→17:03)
[2020-11-18 12:14] LABS: Glucose Point of Care 162 mg/dl (65-105)
[2020-11-18 17:24] LABS: Glucose Point of Care 216 mg/dl (65-105)
[2020-11-18] MEDS: DONEPEZIL HCL 5 MG TABLET PO (20:11)
[2020-11-18 20:38] LABS: Glucose Point of Care 217 mg/dl (65-105)
[2020-11-18] MEDS: traZODone HCL 50 MG TABLET PO (21:40)
[2020-11-19] VITALS: PULSE 80
[2020-11-19 01:40] VITALS: BP 163/61; PULSE 82; RESP 20; TEMP 36.1; O2SAT 96
[2020-11-19 04:00] VITALS: PULSE 74
[2020-11-19 06:03] VITALS: BP 106/59; PULSE 73; RESP 20; TEMP 36.2; O2SAT 93
[2020-11-19 06:04] LABS: Hemoglobin 8.7 g/dL (14.0-18.0)
[2020-11-19 06:25] LABS: Alanine Aminotransferase 284 U/L (4-50); Albumin Level 3.1 g/dL (3.5-5.1); Alkaline Phosphatase 110 U/L (38-126); Anion Gap 5 mmol/L (8-16); Aspartate Amino Transferase 157 U/L (17-59); Blood Urea Nitrogen 16 mg/dL (9-20); Calcium 8.1 mg/dL (8.4-10.2); Carbon Dioxide 39 mmol/L (22-30); Chloride 91 mmol/L (98-107); Estimated CRCL calculation 65 ml/min; Estimated Glomerular Filt Rate > 60; Glucose 137 mg/dL (65-110); Potassium 3.3 mmol/L (3.4-5.0); Sodium 135 mmol/L (137-145)
[2020-11-19 07:45] LABS: Hepatitis B Surface Antigen Negative (Negative)
[2020-11-19 07:51] LABS: HAV RESULT Negative (Negative); Hepatitis B Core IgM Result Negative (Negative)
--- NOTE | 2020-11-19 07:52 | PM.PNCARD ---
Progress Note: A&P Assessment and Plan (1) CHF (congestive heart failure): Code(s): I50.9 - Heart failure, unspecified Status: Acute Assessment and Plan: Probably both acute on chronic mild systolic and diastolic heart failure. Lasix 40 mg IV daily with resolution of symptoms and edema. Limited echo to assess EF and diastolic function shows technically suboptimal study but with definity EF is about 40-45%, diastolic dysfunction, (mod TR was also seen). On Lasix 40 mg PO BID. He was taking 40 mg daily at home. July d/c home from cardiology standpoint to f/u with his regular toll testboard worker, Dr. Caban at [facility] in 1 week. (2) Elevated troponin: Code(s): R77.8 - Other specified abnormalities of plasma proteins Status: Deleted Assessment and Plan: Slightly elevated and flat. Probably related to CHF and doubt ACS as no symptoms to suggest it. (3) Atrial flutter: Code(s): I48.92 - Unspecified atrial flutter Status: Acute Assessment and Plan: [id number] 5. On aspirin 81 mg daily. He reports he used to be on Eliquis until he had bleeding gastric ulcer and no longer on anticoagulation since. He also has significant anemia. Rate is normal. (4) Coronary artery disease: Code(s): I25.10 - Atherosclerotic heart disease of [place] coronary artery without angina pectoris Status: Inactive Assessment and Plan: Stable. He is not on statin for unknown reasons and patient does not know why either. However, given acute liver enzyme elevation will hold off on starting a statin. His regular toll testboard worker is Dr. Caban at [facility]. (5) Type 2 diabetes mellitus: Code(s): E11.9 - Type 2 diabetes mellitus without complications Status: Acute Assessment and Plan: Managed by hospitalist. (6) Iron deficiency anemia: Code(s): D50.9 - Iron deficiency anemia, unspecified Status: Acute Assessment and Plan: Managed by hospitalist. (7) Chronic respiratory failure with hypoxia, on home oxygen therapy: Code(s): J96.11 - Chronic respiratory failure with hypoxia; Z99.81 - Dependence on supplemental oxygen Status: Acute Assessment and Plan: Diurese with Lasix IV to improve oxygenation. (8) Transaminitis: Code(s): R74.01 - Elevation of levels of liver transaminase levels Status: Acute Assessment and Plan: Probably due to passive congestion with mod TR and pulm hypertension. AST and ALT are improving. Subjective Date/time seen: 11/19/20 07:52 Patient reports chronic intermittent nausea requiring Zofran but has not been receiving it here. He is nauseated this morning. No chest pain or sob. Exam Const: General: cooperative, healthy appearing and comfortable Nutritional Appearance: obese Resp: Auscultation: crackles, no rhonchi and no wheezes Cardio: Jugular venous distension: no JVD Rate: regular rate Rhythm: abnormal rhythm Heart sounds: no murmurs GI: GI Palp: No abdominal tenderness and Yes Soft to palpation Neuro: General: oriented to person, oriented to place and oriented to time Extrem: Right lower extremity: no edema Left lower extremity: no edema Objective Data Vital Signs Vital Signs: Vital Signs - 24 hr 11/18/20 08:00 11/18/20 09:00 11/18/20 10:00 Temperature 96.9 F L Pulse Rate 72 70 Respiratory Rate 20 20 Blood Pressure 108/50 L Pulse Oximetry 98 98 11/18/20 14:00 11/18/20 16:00 11/18/20 20:00 Temperature 97.4 F L Pulse Rate 75 76 78 Respiratory Rate 20 Blood Pressure 106/56 L Pulse Oximetry 97 100 11/18/20 22:04 11/19/20 00:00 11/19/20 01:40 Temperature 97.0 F L 97.0 F L Pulse Rate 82 80 82 Respiratory Rate 20 20 Blood Pressure 119/57 L 163/61 H Pulse Oximetry 100 96 11/19/20 04:00 11/19/20 06:03 Temperature 97.2 F L Pulse Rate 74 73 Respiratory Rate 20 Blood Pressure 106/59 L Pulse Oximetry 93 Intake/Out
[2020-11-19 08:00] VITALS: PULSE 86
[2020-11-19 08:03] LABS: Hepatitis C Virus Antibody Negative (Negative)
[2020-11-19] MEDS: ONDANSETRON INJ 4 MG/2 ML VIAL IV PUSH (08:10)
[2020-11-19] MEDS: POTASSIUM CHLORIDE 20 MEQ TABLET 40 MEQ PO (08:11)
[2020-11-19] MEDS: ASPIRIN 81 MG CHEWABLE TABLET PO (08:11)
[2020-11-19] MEDS: FUROSEMIDE 40 MG TABLET PO (08:11)
[2020-11-19] MEDS: FERROUS SULFATE 324 MG TABLET PO (08:11)
[2020-11-19] MEDS: PANTOPRAZOLE 40 MG TABLET PO (08:12)
[2020-11-19] MEDS: MAGNESIUM OXIDE 400 MG TABLET PO (08:12)
[2020-11-19] MEDS: TAMSULOSIN HCL 0.4 MG CAPSULE PO (08:12)
[2020-11-19] MEDS: PREGABALIN (*CRX) 75 MG CAPSULE PO (08:12)
[2020-11-19 08:40] LABS: Glucose Point of Care 177 mg/dl (65-105)
--- NOTE | 2020-11-19 09:57 | PM.DS ---
DS: Admitting Diagnosis Admitting Diagnosis chf exacerbation DS: Discharge Diagnosis Discharge Diagnosis (1) Acute exacerbation of congestive heart failure: Code(s): I50.9 - Heart failure, unspecified Status: Acute Assessment and Plan: Acute on chronic systolic and diastolic failure on exam and on imaging -echo showing EF 40-45% with -pt also has untreated MALLORY - patient discharged on Lasix 40 mg twice a day -he is at his baseline oxygen -troponins flat, no ACS suspected. No chest pain - patient educated about daily weights and low sodium diet (2) Atrial flutter: Code(s): I48.92 - Unspecified atrial flutter Status: Acute Assessment and Plan: Rate controlled -Chads 2 Vasc is 5 though he is not on long-term anticoagulation due to history of bleeding gastric ulcer -patient sees a advertising material distributor at [facility] (3) Elevated troponin: Code(s): R77.8 - Other specified abnormalities of plasma proteins Status: Acute Assessment and Plan: Likely related to congestive heart failure and renal insufficiency -no chest pain on exam, ACS less likely -echo reviewed (4) Electrolyte abnormality: Code(s): E87.8 - Other disorders of electrolyte and fluid balance, not elsewhere classified Status: Acute Assessment and Plan: Improved, sodium 135 and potassium 3.3 (5) Renal failure: Code(s): N19 - Unspecified kidney failure Status: Acute Assessment and Plan: Baseline creatinine is not known as he was admitted to the hospital on 10/24/2020 with creatinine of 1.4 though that improved to 1.0 with diuresis -UA without concerns for renal failure or UTI (6) Chronic anemia: Code(s): D64.9 - Anemia, unspecified Status: Acute Assessment and Plan: Last hemoglobin 8.7, consistent with baseline -no signs of bleeding -history of gastric ulcer, continue Protonix (7) Hypertension: Code(s): I10 - Essential (primary) hypertension Status: Acute Assessment and Plan: Last blood pressure 106/59but asymptomatic (8) Type 2 diabetes mellitus: Code(s): E11.9 - Type 2 diabetes mellitus without complications Status: Acute Assessment and Plan: Last glucose 137 -Recent hemoglobin A1c was 6.7%. - continue home medications at discharge (9) Chronic respiratory failure with hypoxia, on home oxygen therapy: Code(s): J96.11 - Chronic respiratory failure with hypoxia; Z99.81 - Dependence on supplemental oxygen Status: Acute Assessment and Plan: Patient is on 3 L at home of oxygen with exertion only. He does not usually use this at rest (10) Transaminitis: Code(s): R74.01 - Elevation of levels of liver transaminase levels Status: Acute Assessment and Plan: AST 540 and ALT 469 and improving on discharge -patient has no history of liver disease and does not drink alcohol -ultrasound shows evidence of passive congestion - hepatitis panel negative - will need outpatient LFTs DS: Summary Hospital Course Hospital Course: Date of service November 19, 2020 patient is an 80-year-old male who presented emergency room on November 16, 2020 for lower extremity swelling found to have acute on chronic CHF. Echo shows an EF of 40-45%. Patient was given IV Lasix with improvement. He saw Cardiology during his stay. He did have significantly elevated liver enzymes which was likely due to congestion and was improving by the day. He had no chest pain during this time, ACS did not appear likely. The day of discharge he was feeling back to baseline and we discussed a low-salt diet with daily weights. Overall, he was feeling better and ready to go. He was educated about the worrisome signs and symptoms come back to emergency room for and was discharged stable condition. he is to follow up with his advertising material distributor and primary care p
[2020-11-19 12:00] VITALS: PULSE 85
[2020-11-19 13:47] LABS: Glucose Point of Care 175 mg/dl (65-105)
== END 2020-11-19 12:20 | disposition home or self-care (01) ==
LOC: ANHED 15:35 → ANHIMU 16:05 → ANH2MED 11-19 09:56 → ANHIMU 11-21 14:24
PROVIDERS: Physician Assistant; Admitting Provider Internal Medicine; Emergency Provider Emergency Medicine; PCP Internal Medicine; Visit Provider Internal Medicine Nephrology
DX: I11.0 Hypertensive heart disease with heart failure (principal); I50.43 Acute on chronic combined systolic (congestive) and diastolic (congestive) heart failure; R60.0 Localized edema; J96.11 Chronic respiratory failure with hypoxia; I48.92 Unspecified atrial flutter; D50.9 Iron deficiency anemia, unspecified; E11.9 Type 2 diabetes mellitus without complications; E87.8 Other disorders of electrolyte and fluid balance, not elsewhere classified; I25.10 Atherosclerotic heart disease of native coronary artery without angina pectoris; K21.9 Gastro-esophageal reflux disease without esophagitis; G47.33 Obstructive sleep apnea (adult) (pediatric); N19 Unspecified kidney failure; N40.0 Benign prostatic hyperplasia without lower urinary tract symptoms; R77.8 Other specified abnormalities of plasma proteins; R74.01 Elevation of levels of liver transaminase levels; Z99.81 Dependence on supplemental oxygen; Z95.5 Presence of coronary angioplasty implant and graft; Z79.84 Long term (current) use of oral hypoglycemic drugs
CPT/HCPCS: 36415; 71045; 76705; 80048; 80069; 80074; 80076; 81003; 82948; 83735; 83880; 84484; 85014; 85018; 85025; 85055; 85610; 85730; 93005; 93308; 96374; 96375; 96376; 97161; 97165; 99285; A9270; C8924; G0378; J1940; J2405; Q9957

== ENCOUNTER 2020-11-28 02:35 | Observation (INO) | payer MEDICARE, MEDICAID, SELFPAY ==
[2020-11-28] VITALS (22 sets, daily range): BP systolic 105–139; BP diastolic 59–87; PULSE 76–93; RESP 14–22; TEMP 36.6–37.2; O2SAT 92–100; BMI 37.3
--- NOTE | ~2020-11-28 | XR_ITS ---
EXAMINATION: XR chest 2V DATE: 11/28/2020 03:25 INDICATION: Shortness of breath TECHNIQUE: frontal and lateral views of the chest were obtained. COMPARISON: Chest radiograph dated 11/16/2020 FINDINGS: Unchanged mild elevation of left hemidiaphragm. There is some eventration along the right hemidiaphra gm. Mild perihilar opacities with peribronchial cuffing consistent with mild pulmonary edema. The car diomediastinal silhouette is within normal limits for AP technique. Severe bilateral glenohumeral ost eoarthritis. Cholecystectomy clips in right upper quadrant. IMPRESSION: 1. Mild perihilar opacities and favor pulmonary edema over pneumonia. Reviewed, dictated and finalized at location A.
--- NOTE | 2020-11-28 02:39 | PC.NURSE ---
Lennie (POA), grand-daughter of pt, requests update on pt as results come back. States ED can call for information about pts medical hx and medication list. (PH: [phone])
--- NOTE | 2020-11-28 02:46 | ED.SOB ---
HPI - SOB/Dyspnea General Chief Complaint: Shortness of Breath/Dyspnea Stated Complaint: sob/ ext swelling Time Seen by Provider: 11/28/20 02:46 Source: patient and EMS Mode of arrival: EMS Limitations: no limitations History of Present Illness HPI Narrative: Patient is an 80-year-old male with a history of hypertension, paroxysmal atrial fibrillation/flutter, coronary artery disease with history of multiple stents, congestive heart failure, chronic respiratory failure on 3 L oxygen, and diabetes, who presents for evaluation of worsening shortness of breath and lower extremity edema. Patient states he has been compliant with his medications including his diuretic but has experienced increased bilateral lower extremity swelling over the past 24 hours. Patient also with cough with yellow sputum. He denies fever, chills, chest pain. Patient states he has had to increase his oxygen requirement from 3 to 4 L. Reviewed patient's recent admission and discharge from our facility on November 19. Patient with known history of diastolic congestive heart failure, ejection fraction 40%. Patient typically sees Dr. Caban at [facility], but saw Dr. Shankar with his last admission. Pt is not vaccinated for COVID, denies history of COVID infection. Related Data Home Medications Medication Instructions Recorded Confirmed Nucynta ER 50 mg PO Q6H PRN 10/24/20 11/16/20 Nuedexta See Rx Instructions .ROUTE .COMPLEX 10/24/20 11/16/20 enalapril maleate 5 mg PO DAILY 10/24/20 11/16/20 glipizide 2.5 mg PO DAILY PRN 10/24/20 11/16/20 metformin 1,000 mg PO DAILY PRN 10/24/20 11/16/20 pantoprazole 40 mg PO DAILY 10/24/20 11/16/20 pregabalin 75 mg PO DAILY 10/24/20 11/16/20 tamsulosin 0.4 mg PO DAILY 10/24/20 11/16/20 trazodone 50 mg PO HS PRN 11/16/20 11/16/20 Allergies Allergy/AdvReac Type Severity Reaction Status Date / Time No Known Allergies Allergy Verified 11/28/20 02:55 Review of Systems Review of Systems: CONSTITUTIONAL: Denies fever, chills, or sweats. EYES: Denies visual changes, redness, or discharge. ENT: Denies rhinorrhea, congestion, sore throat, or otalgia. CARDIOVASCULAR: Denies chest pain, palpitations, reports bilateral lower extremity edema RESPIRATORY: Reports cough and shortness of breath GASTROINTESTINAL: Denies abdominal pain, nausea, vomiting, or diarrhea. GENITOURINARY: Denies dysuria or hematuria. SKIN: Denies rash or itching. MUSCULOSKELETAL: Denies back pain, joint pain, or myalgia. NEUROLOGIC: Denies headache, numbness, or weakness. [facility] Past Medical History Medical History Anemia Arthritis Benign prostatic hyperplasia Cerebrovascular accident 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 Chronic anemia Chronic pain Patient had a pain pump inserted in February 2019. Chronic respiratory failure with hypoxia, on home oxygen therapy Baseline oxygen requirement is 3 L nasal cannula. Congestive heart failure Echocardiogram on 10/25/2020 showed preserved LV systolic function with an estimated EF of 50 to 55% and abnormal diastolic function. Coronary artery disease Gastroesophageal reflux disease History of bleeding peptic ulcer Hypertension Iron deficiency anemia Receives frequent iron infusions. Moderate pulmonary hypertension Estimated pulmonary arterial systolic pressure was 54 mmHg on echocardiogram dated 10/25/2020. Paroxysmal atrial fibrillation Pseudobulbar affect Spinal stenosis Type 2 diabetes mellitus Hemoglobin A1c was 6.3% on 10/25/2020. Surgical History Surgical History History of bilateral cataract extraction History of hernia repair Family History Family History Father Acute myocardial infarction Sibling Acute myocardial infarction Brain aneurysm Other No problems noted. Mother Br
--- NOTE | 2020-11-28 02:48 | ECG_ITS ---
Measurements Intervals [place] Rate: 78 P: [place]: 0 QRS: 91 QRSD: 107 T: -37 QT: 400 QTc: 458 Interpretive Statements ATRIAL FLUTTER/TACHYCARDIA FREQUENT VENTRICULAR PREMATURE COMPLEXES RIGHT AXIS DEVIATION DELAYED PRECORDIAL R/S TRANSITION LOW QRS VOLTAGE IN LIMB LEADS BORDERLINE ST-T WAVE ABNORMALITY- INFERIOR LEADS BASELINE ARTIFACT- I, II, III, AVL, AVF, V1-V6 ABNORMAL ECG Electronically Signed On 11-28-2020 11:52:17 CDT by Waqas Shankar D.O.
[2020-11-28] MEDS: FUROSEMIDE INJ 40 MG/4 ML VIAL IV PUSH ×2 (03:00→10:22)
[2020-11-28 03:19] LABS: Basophils Percent Auto 0.4 % (0.2-1.2); Eosinophils Absolute Auto 0.1 K/mm3 (0-0.3); Eosinophils Percent Auto 1.3 % (0-4.4); Hematocrit 31.8 % (42.0-52.0); Hemoglobin 8.6 g/dL (14.0-18.0); Immature Granulocyte Absolute 0.03 K/mm3 (0.00-0.031); Immature Granulocyte Percent A 0.4 % (0-0.5); Immature Platelet Fraction Pct 10.9 % (0.9-11.2); Lymphocytes Absolute Auto 0.45 K/mm3 (0.9-3.2); Lymphocytes Percent Auto 6.7 % (18.3-44.2); Mean Corpuscular Hemoglobin 21.2 pg (26-34); Mean Corpuscular Volume 78.3 fl (80-100); Monocytes Absolute Auto 1.1 K/mm3 (0.1-0.6); Monocytes Percent Auto 16.5 % (2.6-8.5); Neutrophils Percent Auto 74.7 % (45.5-73.1); Platelet Count Result 156 k/mm3 (150-375); Red Blood Count 4.06 M/mm3 (4.6-6.20); Red Cell Distribution Width 22.3 % (11.5-14.5); White Blood Count 6.7 K/mm3 (4.5-10.0)
[2020-11-28 03:34] LABS: Anion Gap 8 mmol/L (8-16); Blood Urea Nitrogen 36 mg/dL (9-20); Calcium 8.3 mg/dL (8.4-10.2); Carbon Dioxide 36 mmol/L (22-30); Chloride 92 mmol/L (98-107); Estimated CRCL calculation 55 ml/min; Estimated Glomerular Filt Rate > 60; Glucose 108 mg/dL (65-110); Potassium 3.9 mmol/L (3.4-5.0); Sodium 136 mmol/L (137-145)
[2020-11-28 03:42] LABS: INR 1.2; Prothrombin Time 15.4 Seconds (11.1-14.7)
[2020-11-28 03:43] LABS: Partial Thromboplastin Time 34.5 SECONDS (22.3-36.8)
[2020-11-28 03:47] LABS: NT Pro B Type Natriuretic Pept 5540 pg/mL (5-100); Troponin I 0.013 ng/mL (0.000-0.034)
[2020-11-28 03:49] LABS: Anisocytosis 1+ (NORMAL); Hypochromasia 2+ (NORMAL); Platelet Estimate Adequate (Adequate)
--- NOTE | 2020-11-28 05:44 | PC.NURSE ---
Updated Lennie by phone per pt request.
--- NOTE | 2020-11-28 06:58 | ADMGEN ---
This patient, Zack Orellana, was admitted to 3 Med Surg Room 332-01. Patient/family oriented to hospital policies and general routines including ID bracelet, bed and alarms, visiting hours, pain management, procedures, bathroom and other care routines, personal items, smoking policy, room service/diet, and visiting hours. Information on how to activate the Rapid Response Team has been discussed. Patient/Family are encouraged to report perceived risks to care and to ask questions if they do not understand what they are told or what they should do.
[2020-11-28] MEDS: PREGABALIN (*CRX) 75 MG CAPSULE PO (09:49)
[2020-11-28 10:17] LABS: Alanine Aminotransferase 36 U/L (4-50); Albumin Level 3.4 g/dL (3.5-5.1); Alkaline Phosphatase 108 U/L (38-126); Aspartate Amino Transferase 27 U/L (17-59)
[2020-11-28] MEDS: TAMSULOSIN HCL 0.4 MG CAPSULE PO (10:23)
[2020-11-28] MEDS: ENALAPRIL MALEATE 5 MG TABLET PO (10:23)
[2020-11-28] MEDS: PANTOPRAZOLE 40 MG TABLET PO (10:23)
[2020-11-28] MEDS: ASPIRIN 81 MG CHEWABLE TABLET PO (10:23)
--- NOTE | 2020-11-28 10:40 | ECG_ITS ---
Measurements Intervals [place] Rate: 83 P: [place]: 0 QRS: 110 QRSD: 122 T: -16 QT: 414 QTc: 487 Interpretive Statements ATRIAL FLUTTER/TACHYCARDIA VENTRICULAR PREMATURE COMPLEX RIGHT AXIS DEVIATION INTRAVENTRICULAR CONDUCTION DELAY DELAYED PRECORDIAL R/S TRANSITION BASELINE ARTIFACT- I, III, AVR, AVL, AVF, V1, V3-V5 ABNORMAL ECG Electronically Signed On 11-28-2020 10:55:09 CDT by Waqas Shankar D.O.
[2020-11-28 12:26] LABS: Glucose Point of Care 97 mg/dl (65-105)
--- NOTE | 2020-11-28 12:32 | PM.CNCAR ---
Assessment and Plan Assessment and plan (1) Systolic CHF, acute on chronic: Code(s): I50.23 - Acute on chronic systolic (congestive) heart failure Status: Acute Assessment and Plan: He was on higher dose of Lasix 40 mg PO BID upon discharge but it was still not enough to keep him euvolemic. Agree with Lasix 40 mg IV BID. Add Spironolactone 25 mg daily. Monitor potassium and renal function with this. His regular security sergeant is Dr. Caban at [facility]. (2) Atrial flutter: Code(s): I48.92 - Unspecified atrial flutter Status: Acute Assessment and Plan: Rate is normal. Not on anticoagulation due to history of bleeding gastic ulcer. (3) Edema of both legs: Code(s): R60.0 - Localized edema Status: Acute History of Present Illness History of Present Illness Consult date/time: 11/28/20 12:32 80 yr old man presents to ER due to edema of legs. His regular security sergeant is at [facility], Dr. Caban, and sees him regularly and last was a couple of weeks ago. He has a history of CHF, CAD with VT and several stents (last cath about 3 years ago per patient), atrial fib/flutter, DM, hypertension, iron deficiency anemia requiring iron infusions. Reports that he noted more edema of legs and hands so he decided to come in to hospital. He can walk with his cane about 20 feet and gets BARRAZA which is chronic for him. He is on 3 l/m of oxygen at home. Denies chest pain, sob, orthopnea, PND, dizziness, palpitations. EKG shows atrial flutter. CXR shows mild CHF. 11/17/20 Limited echo shows EF 40%, diastolic dysfunction, mod TR. An echo on 10/25/20 EF 50-55%, diastolic dysfunction (E/e' 10), severe LAE, mod GULSHAN, mod MAC, RVSP 54 mmHg. Reason For Visit: CHF Exacerbation Review of Systems Constitutional: Constitutional: Reports as per HPI, Denies chills and Denies fever(s) Cardiovascular: Cardiovascular: Reports as per HPI, Denies chest pain and Denies dyspnea Respiratory: Respiratory: Reports as per HPI and Denies dyspnea Gastrointestinal: Gastrointestinal: Reports as per HPI and Denies abdominal pain Genitourinary: Genitourinary: Reports as per HPI and Denies dysuria Musculoskeletal: Musculoskeletal: Reports as per HPI Neurologic: Reports as per HPI, Denies dizziness and Denies syncope [facility] Past Medical History Medical History Anemia Arthritis Benign prostatic hyperplasia Cerebrovascular accident 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 Chronic anemia Chronic pain Patient had a pain pump inserted in February 2019. Chronic respiratory failure with hypoxia, on home oxygen therapy Baseline oxygen requirement is 3 L nasal cannula. Congestive heart failure Echocardiogram on 10/25/2020 showed preserved LV systolic function with an estimated EF of 50 to 55% and abnormal diastolic function. Coronary artery disease Gastroesophageal reflux disease History of bleeding peptic ulcer Hypertension Iron deficiency anemia Receives frequent iron infusions. Moderate pulmonary hypertension Estimated pulmonary arterial systolic pressure was 54 mmHg on echocardiogram dated 10/25/2020. Paroxysmal atrial fibrillation Pseudobulbar affect Spinal stenosis Type 2 diabetes mellitus Hemoglobin A1c was 6.3% on 10/25/2020. Surgical History Surgical History History of bilateral cataract extraction History of hernia repair Family History Family History Father Acute myocardial infarction Sibling Acute myocardial infarction Brain aneurysm Other No problems noted. Mother Breast cancer Social History Social History Social History: Healthcare power of family law attorney: [facility], granddaughter. Code status: Full code. Smoking
--- NOTE | 2020-11-28 15:00 | PM.IMHP ---
H&P: HPI History of Present Illness Date/Time: 11/28/20 09:25 Chief Complaint: LE swelling Narrative: Pt is a 80-year-old male with a history of systolic heart failure, AFib/flutter, hypertension, diabetes, chronic respiratory failure on 3 L of oxygen, and elevated liver enzymes who presented emergency room for worsening lower extremity edema. The patient was just hospitalized earlier this month for the same. He says when he was discharged she was feeling better the swelling was under control. He states yesterday morning he noticed he was swelling more than normal without any erythema. He says he takes the Lasix 40 mg in a.m. and p.m. he says his diet has not changed. We reviewed his diet he states that he eats breakfast food pretty often and that he loves ham. He has been staying away from salt but did not necessarily realize hand naturally had salt in it. He denies orthopnea, chest pain, worsening shortness of breath, fevers, jaundice, diarrhea or constipation. He states he had has had a sinus infection with a cough for a while and it continues to get worse. He is unvaccinated against COVID-19 and denies history of exposures. He has been taking all of his medications appropriately. He says he has not seen his cdl service technician in about 5 months due to him being out of town and he has not followed up with his primary care physician. He takes pain medication for chronic back and knee pain. History of cardiac catheterization, recent stress testing, CABG or stenting. Review of Systems Review of Systems: All systems reviewed & are unremarkable except as noted in HPI and below PMFSH Past Medical History Medical History Anemia Arthritis Benign prostatic hyperplasia Cerebrovascular accident 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 Chronic anemia Chronic pain Patient had a pain pump inserted in February 2019. Chronic respiratory failure with hypoxia, on home oxygen therapy Baseline oxygen requirement is 3 L nasal cannula. Congestive heart failure Echocardiogram on 10/25/2020 showed preserved LV systolic function with an estimated EF of 50 to 55% and abnormal diastolic function. Coronary artery disease Gastroesophageal reflux disease History of bleeding peptic ulcer Hypertension Iron deficiency anemia Receives frequent iron infusions. Moderate pulmonary hypertension Estimated pulmonary arterial systolic pressure was 54 mmHg on echocardiogram dated 10/25/2020. Paroxysmal atrial fibrillation Pseudobulbar affect Spinal stenosis Type 2 diabetes mellitus Hemoglobin A1c was 6.3% on 10/25/2020. Surgical History Surgical History History of bilateral cataract extraction History of hernia repair Family History Family History Father Acute myocardial infarction Sibling Acute myocardial infarction Brain aneurysm Other No problems noted. 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 Code status: Full code. Smoking packs per day: 1 Smoking cigarettes per day: 20.0 Years smoked: 15 Smoking pack-years: 15.00 Smoking status: Never smoker Tobacco type: cigarettes Alcohol intake: never Substance use: never Substance use type: does not use Additional living arrangements comments: The patient lives in his own home in [place]. He ambulates with a walker but uses a wheelchair when outside of the home. Additional occupation/education comments: Retired from [employer] and doing ?many other things. ? Spiritual care concerns: No Meds Home Medications and Allergies Home Medications Medication Instructions Recorded Confirmed Type Nucynta ER 50 mg PO Q6H PRN 08
[2020-11-28] MEDS: SPIRONOLACTONE 25 MG TABLET PO (15:04)
[2020-11-28 17:25] LABS: Glucose Point of Care 121 mg/dl (65-105)
[2020-11-28] MEDS: MAGNESIUM OXIDE 400 MG TABLET PO (17:38)
[2020-11-28] MEDS: FUROSEMIDE 40 MG TABLET PO (17:38)
[2020-11-28 18:07] LABS: Glucose Point of Care 164 mg/dl (65-105)
[2020-11-28] MEDS: DONEPEZIL HCL 5 MG TABLET PO (22:14)
[2020-11-28 22:41] LABS: SARS-CoV-2 RNA PCR Negative
[2020-11-29] VITALS: BP 134/73; PULSE 100; PULSE 73; RESP 20; TEMP 36.6; O2SAT 95
[2020-11-29] MEDS: ACETAMINOPHEN 325 MG TABLET 650 MG PO (01:18)
[2020-11-29 04:00] VITALS: PULSE 73
[2020-11-29] MEDS: ONDANSETRON INJ 4 MG/2 ML VIAL IV PUSH (05:23)
[2020-11-29 05:49] LABS: Glucose Point of Care 137 mg/dl (65-105)
[2020-11-29 06:57] LABS: Hematocrit 32.1 % (42.0-52.0); Hemoglobin 8.5 g/dL (14.0-18.0); Immature Platelet Fraction Pct 11.7 % (0.9-11.2); Mean Corpuscular HGB Conc 26.5 g/dl (32-36); Mean Corpuscular Hemoglobin 21.2 pg (26-34); Platelet Count Result 140 k/mm3 (150-375); Red Blood Count 4.01 M/mm3 (4.6-6.20); Red Cell Distribution Width 21.8 % (11.5-14.5); White Blood Count 6.2 K/mm3 (4.5-10.0)
[2020-11-29 07:18] LABS: Anion Gap 7 mmol/L (8-16); Blood Urea Nitrogen 26 mg/dL (9-20); Calcium 8.1 mg/dL (8.4-10.2); Carbon Dioxide 38 mmol/L (22-30); Chloride 91 mmol/L (98-107); Estimated CRCL calculation 60 ml/min; Estimated Glomerular Filt Rate > 60; Glucose 129 mg/dL (65-110); Magnesium 1.7 mg/dL (1.6-2.3); Potassium 3.6 mmol/L (3.4-5.0); Sodium 136 mmol/L (137-145)
[2020-11-29 07:59] LABS: Glucose Point of Care 137 mg/dl (65-105)
[2020-11-29 08:00] VITALS: PULSE 81; RESP 20; O2SAT 95
[2020-11-29] MEDS: ASPIRIN 81 MG CHEWABLE TABLET PO (08:54)
[2020-11-29] MEDS: ENALAPRIL MALEATE 5 MG TABLET PO (08:55)
[2020-11-29] MEDS: SPIRONOLACTONE 25 MG TABLET PO (08:55)
[2020-11-29] MEDS: MAGNESIUM OXIDE 400 MG TABLET PO (08:55)
[2020-11-29] MEDS: PANTOPRAZOLE 40 MG TABLET PO (08:56)
[2020-11-29] MEDS: TAMSULOSIN HCL 0.4 MG CAPSULE PO (08:56)
[2020-11-29] MEDS: FUROSEMIDE 40 MG TABLET PO (08:56)
[2020-11-29] MEDS: PREGABALIN (*CRX) 75 MG CAPSULE PO (08:57)
--- NOTE | 2020-11-29 09:22 | PM.PNCARD ---
Progress Note: A&P Assessment and Plan (1) Systolic CHF, acute on chronic: Code(s): I50.23 - Acute on chronic systolic (congestive) heart failure Status: Acute Assessment and Plan: He was on higher dose of Lasix 40 mg PO BID upon discharge but it was still not enough to keep him euvolemic. Agree with Lasix 40 mg PO BID. Added Spironolactone 25 mg daily. Monitor potassium and renal function with this. His regular flight nurse is Dr. Caban at [facility]. May d/c home from cardiology standpoint. Advise to f/u with him or his partner (as he is out of town per patient) in next 1 week. He will need f/u BMP in 1 week. (2) Atrial flutter: Code(s): I48.92 - Unspecified atrial flutter Status: Acute Assessment and Plan: Rate is normal. Not on anticoagulation due to history of bleeding gastic ulcer. (3) Edema of both legs: Code(s): R60.0 - Localized edema Status: Acute Assessment and Plan: Resolved. Subjective Date/time seen: 11/29/20 09:22 Denies chest pain or sob and edema of legs resolved. Exam Const: General: cooperative, healthy appearing and comfortable Nutritional Appearance: obese Resp: Auscultation: clear to auscultation bilaterally, no crackles, no rales, no rhonchi and no wheezes Cardio: Jugular venous distension: no JVD Rate: regular rate Rhythm: regular rhythm Heart sounds: no murmurs GI: GI Palp: No abdominal tenderness and Yes Soft to palpation Neuro: General: oriented to person, oriented to place and oriented to time Extrem: Right lower extremity: no edema Left lower extremity: no edema Objective Data Vital Signs Vital Signs: Vital Signs - 24 hr 11/28/20 11:10 11/28/20 12:00 11/28/20 14:00 Temperature 98 F Pulse Rate 85 87 Respiratory Rate 20 Blood Pressure 121/72 Pulse Oximetry 95 92 11/28/20 16:00 11/28/20 20:00 11/29/20 00:00 Temperature 99.0 F 97.8 F Pulse Rate 80 79 100 Respiratory Rate 18 20 Blood Pressure 118/61 134/73 Pulse Oximetry 95 95 11/29/20 04:00 Temperature Pulse Rate 73 Respiratory Rate Blood Pressure Pulse Oximetry Intake/Output Intake/Output: Intake & Output 11/26/20 11/27/20 11/28/20 11/29/20 23:59 23:59 23:59 23:59 Intake Total 870 800 Output Total 2550 100 Balance -1680 700 Meds/Results Medications: Active Medications Generic Name Dose Route Start Last Admin Trade Name Freq PRN Reason Stop Dose Admin Acetaminophen 650 mg 11/28/20 05:06 11/29/20 01:18 Acetaminophen 325 Mg Tablet PO 650 mg Q4H PRN Administration Mild Pain (1-3) or Fever Aspirin 81 mg 11/28/20 09:20 11/29/20 08:54 Aspirin 81 Mg Chewable Tablet PO 81 mg DAILY@0800 REHAN Administration Bisacodyl 5 mg 11/28/20 09:15 Bisacodyl 5 Mg Tablet Ec PO DAILY PRN constipation Dextrose 12.5 gm 11/28/20 09:44 Dextrose 50% 25 Gm/50 Ml Syringe IV PUSH PRN PRN Hypoglycemia Protocol Donepezil HCl 5 mg 11/28/20 21:00 11/28/20 22:14 Donepezil Hcl 5 Mg Tablet PO 5 mg HS REHAN Administration Enalapril Maleate 5 mg 11/28/20 09:20 11/29/20 08:55 Enalapril Maleate 5 Mg Tablet PO 5 mg DAILY REHAN Administration Furosemide 40 mg 11/28/20 17:00 11/29/20 08:56 Furosemide 40 Mg Tablet PO 40 mg BID REHAN Administration Glucagon 1 mg 11/28/20 09:44 Glucagon For Inj 1 Mg Vial IM PRN PRN Hypoglycemia Protocol Glucose 15 gm 11/28/20 09:44 Glucose Oral Gel 15 Gm Of Glucse In 37.5 Gm Tube PO PRN PRN Hypoglycemia Protocol Dextrose 1,000 mls @ 100 mls/hr 11/28/20 09:44 Dextrose 5% 1,000 Ml IVPB PRN PRN Hypoglycemia Protocol Insulin Aspart 2 - 5 units 11/28/20 12:00 11/28/20 17:23 Insulin Aspart (*Bkc) 100 Units/Ml SUB-Q Not Given TIDWM REHAN Protocol Magnesium Oxide 400 mg 11/28/20 17:00 11/29/20 08:55 Magnesium Oxide 400 Mg Tablet PO 400 m
--- NOTE | 2020-11-29 10:10 | PM.DS ---
DS: Admitting Diagnosis Discharge Date 11/29/20 Admitting Diagnosis CHF exacerbation DS: Discharge Diagnosis Discharge Diagnosis (1) Systolic CHF, acute on chronic: Code(s): I50.23 - Acute on chronic systolic (congestive) heart failure Status: Acute Assessment and Plan: CHF acute on chronic -BNP elevated but a little lower than his last hospitalization -patient states he was compliant with his Lasix but thinks he takes 40 mg b.i.d. at home -his diet is questionable as he says he eats a lot of ham -echo 11/17 did show EF of 40-45% with diastolic dysfunction that is abnormal -no chest pain at this time, initial troponin negative. No indication for further troponins -no history of cardiac catheterization or CABG according to the patient -Dr. Shankar consulted and recommended addition of spironolactone. BMP in one week w/ f/u with pcp -Pt was placed on IV lasix BID during his hospitalization which was transitioned to oral. (COVID pcr neg) (2) Bilateral edema of lower extremity: Code(s): R60.0 - Localized edema Status: Acute Assessment and Plan: As above -DVT less likely due to bilateral swelling and symptoms consistent with CHF. Negative Doppler studies last month -Patient has history of GI bleed on anticoagulation -resolved at d/c (3) Transaminitis: Code(s): R74.01 - Elevation of levels of liver transaminase levels Status: Acute Assessment and Plan: Noted last stay due to congestion -WNL this stay (4) Chronic anemia: Code(s): D64.9 - Anemia, unspecified Status: Acute Assessment and Plan: Hemoglobin stable last being a 8.5 (5) Atrial flutter: Code(s): I48.92 - Unspecified atrial flutter Status: Acute Assessment and Plan: Rate controlled, not on any rate controlling medications -no anticoagulation due to history of GI bleed (6) Type 2 diabetes mellitus: Code(s): E11.9 - Type 2 diabetes mellitus without complications Status: Acute Assessment and Plan: Last glucose 137 -continue home regimen DS: Summary Hospital Course Hospital Course: Date of service 11/29/2020 Patient is an 80-year-old male with a history of CHF who was recently hospitalized who presented emergency room for lower extremity DVT found to be in CHF exacerbation. Vitals in the ER were temperature 36.8? C, pulse 93, respiratory rate 18, blood pressure 137/75, pulse ox 95 on room air. CBC showed chronic anemia with hemoglobin 8.6 and hematocrit of 31.8. BMP relatively normal with slight abnormalities 2 sodium 136, chloride 92, CO2 36, BUN 36. Chest x-ray showed mild perihilar opacities, favor pulmonary edema over pneumonia. Patient was admitted to the hospitalist service and started on IV Lasix. His symptoms improved greatly with this treatment. No pneumonia was suspected since improvement of his symptoms with diuretics. COVID PCR was negative. Cardiology was consulted and recommended addition spironolactone. The patient is to have a repeat BMP in 1 week due to this new medication and is going to follow up with his primary care physician. Overall, the day of discharge patient is feeling back to baseline. He was educated about the worrisome signs and symptoms come back to emergency room for and was discharged stable condition. Status at Discharge Functional status at discharge: independent ambulation Overall status at discharge: patient is back to baseline Time Spent with Patient Time attestation: Total time spent providing and/or coordinating discharge services:38 min Exam Narrative: General:Well developed well nourished patient HEENT: Normocephalic, atraumatic, PERRL, Sclerae anicteric, oral mucosa moist. Neck: Supple Resp: Crackles at the bases Heart: RRR with no murmurs Abd: Soft, nontender. No pain to palpation. large hernia noted. Positive bowel sounds Skin: Warm and dry Extremities: trace LE edema
--- NOTE | 2020-11-29 15:07 | PC.NURSE ---
On 11/29/20, the student, Delilah Groves, provided care and completed [facility] documentation on this patient. I have reviewed the student's documentation and agree with the findings.
== END 2020-11-29 11:40 | disposition home or self-care (01) ==
LOC: ANHED 05:08 → ANH3MEDSUR 07:30
PROVIDERS: Internal Medicine Cardiovascular Disease; Physician Assistant; Admitting Provider Internal Medicine; Emergency Provider Emergency Medicine; PCP Internal Medicine; Visit Provider Internal Medicine
DX: I11.0 Hypertensive heart disease with heart failure (principal); I50.23 Acute on chronic systolic (congestive) heart failure; D64.9 Anemia, unspecified; E11.9 Type 2 diabetes mellitus without complications; I48.92 Unspecified atrial flutter; J96.10 Chronic respiratory failure, unspecified whether with hypoxia or hypercapnia; Z20.822 Contact with and (suspected) exposure to COVID-19; Z79.84 Long term (current) use of oral hypoglycemic drugs; Z99.81 Dependence on supplemental oxygen
CPT/HCPCS: 36415; 71046; 80048; 80076; 82948; 83735; 83880; 84484; 85025; 85027; 85055; 85610; 85730; 93005; 96374; 96375; 96376; 97161; 99285; A9270; C9803; G0378; J1940; J2405; U0003; U0005

== ENCOUNTER 2020-12-10 12:28 | Observation (INO) | payer MEDICARE, MEDICAID, SELFPAY ==
[2020-12-10] VITALS (36 sets, daily range): BP systolic 94–135; BP diastolic 61–88; PULSE 71–105; RESP 13–27; TEMP 36.6; O2SAT 62–100; BMI 36.2
--- NOTE | ~2020-12-10 | XR_ITS ---
EXAMINATION: XR shoulder LT min 2V DATE: 12/11/2020 00:46 INDICATION: Left shoulder pain TECHNIQUE: AP internally and externally rotated, AP oblique externally rotated and transscapular Y vi ews of the left shoulder were obtained. COMPARISON: Chest radiograph dated 11/16/2020 FINDINGS: Normal alignment. Subtle posterior left seventh rib fracture which can be seen on the prior chest rad iograph from 11/16/2020. No fracture to left shoulder..Advanced left glenohumeral osteoarthritis with r emodeling of the articular surfaces of the glenoid and more prominently of the humeral head. Large ma rginal osteophytes and several loose osteochondral bodies at the inferior aspect of the joint space. Mild to moderate acromioclavicular osteoarthritis. Primarily streaky opacities at the left lung base and favor atelectasis over pneumonia. Soft tissues are unremarkable. IMPRESSION: 1. Severe left glenohumeral osteoarthritis without acute osseous abnormality. 2. Subacute to chronic fracture of the posterior left seventh rib. Reviewed, dictated and finalized at location A.
--- NOTE | ~2020-12-10 | XR_ITS ---
EXAMINATION: XR hip LT 2V w AP pelvis DATE: 12/11/2020 00:46 INDICATION: Left hip pain post fall TECHNIQUE: Anteroposterior view of the pelvis and anteroposterior and frog-leg lateral views of the l eft hip were obtained. COMPARISON: None. FINDINGS: Alignment is normal. No fracture. Portions of the superomedial right ilium are obscured by the reserv oir for a likely intrathecal pain pump. Mild osteoarthritis at the bilateral hip and sacroiliac joint s. Mild lower lumbar spondylosis. Postoperative changes in the abdomen. Excreted contrast in the bila teral ureters related to immediately prior contrast enhanced chest CT. IMPRESSION: 1. Mild degenerative skeletal changes in the lumbar spine and pelvis. No acute osseous abnormality. Reviewed, dictated and finalized at location A.
--- NOTE | ~2020-12-10 | CT_ITS ---
EXAMINATION: CTA chest PE protocol EXAM DATE: 12/11/2020 00:21 INDICATION: Shortness of breath. TECHNIQUE: Spiral CTA of the chest (pulmonary arteries) was performed with 100 cc Omnipaque 350 intr avenous contrast injection. Images were acquired during the pulmonary arterial phase. Coronal maxi mum intensity projection 3D-reconstructions were created by the technologist on dedicated workstation . Axial, coronal and sagittal reformatted images were reviewed. The dose-length product (DLP) for t his examination was 922.39 mGy-cm. The exposure was tailored according to patient size (auto mA exp osure control), and iterative reconstruction (ASIR) was used as additional dose reduction technique. Correlation is made to chest x-ray from yesterday. FINDINGS: The main, central pulmonary arteries are dilated which can indicate elevated pulmonary lynda rial pressure, pulmonary arterial hypertension. There are no pulmonary emboli in the 1st through 3r d order (central and interlobar) pulmonary arteries. Some loss of attenuation in the left basilar se gmental pulmonary from respiratory motion, these regions not confidently evaluated. No Intraluminal f illing defects identified. No thoracic aortic dissection. There is mosaic attenuation involving both lungs. This is suspected to be most likely combination of air trapping and also groundglass opacities. Differential diagnosis for this includes air trapping ( asthma, bronchiolitis obliterans), vasculitis, or groundglass opacity. Groundglass opacity can be ca used acutely by edema, infection (PCP in an immunocompromised patients) or hemorrhage. It can also b e caused by chronic processes such as hypersensitivity pneumonitis, nonspecific interstitial pneumoni tis (NSIP), cryptogenic organized pneumonia, desquamative interstitial pneumonitis(DIP). There is small to moderate right, and a small left pleural effusion. No pericardial effusion. Adjacen t subsegmental atelectasis. Tracheobronchial tree is patent. There is no mediastinal, hilar or axil terra lymphadenopathy. There is no pneumothorax. There is cardiomegaly. There are dense coronary arteries, could be severe coronary arterial sclerosis and/or coronary artery stent(s), which are diff icult to distinguish due to cardiac motion on this non-gated exam. Correlate with cardiac history and consider cardiology consult if not recently evaluated. Incompletely imaged exophytic lesion off sup erior pole left kidney measuring 3.9 cm, imaged portion consistent with cysts. There is mild to mode rate thoracic spondylosis without osteoblastic or osteolytic lesions identified. There is severe righ t shoulder, moderate to severe left shoulder primary osteoarthritis. There is subacute left 7th rib fracture posteriorly. IMPRESSION: 1. Dilated pulmonary arteries without emboli suspected. 2. Small to moderate right, small left pleural effusions. Adjacent subsegmental atelectasis. 3. Diffuse mosaic attenuation most likely combination of small airways disease and edema or pneumoni a. 4. Cardiomegaly. Reviewed, dictated and finalized at location A. IMPRESSION: 1. Dilated pulmonary arteries without emboli suspected. 2. Small to moderate right, small left pleural effusions. Adjacent subsegmenta l atelectasis. 3. Diffuse mosaic attenuation most likely combination of small airways disease and edema or pneumonia. 4. Cardiomegaly.
--- NOTE | ~2020-12-10 | CT_ITS ---
EXAMINATION: CT cervical spine wo con EXAM DATE: 12/10/2020 15:34 INDICATION: Fall, head injury. Transient alteration of awareness. TECHNIQUE: Spiral CT of the cervical spine was performed without contrast. Axial images were reviewe d. Coronal and sagittal reformatted images cervical spine were also reviewed. The dose-length produc t (DLP) for this examination was 515.16 mGy-cm. The exposure was tailored according to patient size (auto mA exposure control), and iterative reconstruction (ASIR) was used as additional dose reduction technique. There is no prior study for comparison. FINDINGS: There are layering pleural effusions. There is no evidence of acute cervical fracture. The odontoid process is intact. Pre-dens space is normal. Prevertebral soft tissue is normal. There a re no soft tissue abnormalities identified. There is no disc space widening or traumatic vertebral b laine subluxation suspected. Mild to moderate cervical disc disease, moderate left mid cervical facet arthropathy. A detailed level by level evaluation of spondylosis can be added as addendum if request ed. IMPRESSION: 1. No acute cervical fracture. 2. Layering pleural effusions. 3. Spondylosis. Reviewed, dictated and finalized at location A.
--- NOTE | ~2020-12-10 | CT_ITS ---
EXAMINATION: CT brain wo con DATE: 12/10/2020 15:34 INDICATION: Confusion. Fall. Altered mental state. TECHNIQUE: Computed tomography (CT) of the head was performed without intravenous contrast. The mA wa s adjusted according to patient size. Iterative reconstruction technique was employed. Exam dose: 68 1.00 mGy-cm total exam DLP. COMPARISON: 10/24/2020 CT brain FINDINGS: 12 mm calcified meningioma along the right side of the anterior falx is again noted. Bilateral vertebral artery and carotid siphon internal carotid artery calcifications. There is nonspecific diminished attenuation of the cerebral white matter, likely due to chronic small vessel ischemic changes. There is central and more prominent cortical cerebral atrophy as well as moderate cerebellar volume l oss. Chronic right occipital infarct. No intracranial mass lesion or hemorrhage or recent cerebrovascular accident is evident. No midline s hift or mass effect. No subdural or epidural hematoma is detected. The orbital contents are unremarkable. There is mild soft tissue thickening of the paranasal sinuses. No fracture or bone destruction of the cranial vault is detected. IMPRESSION: No acute intracranial finding or significant change since 10/24/2020 Reviewed, dictated and finalized at Location A. Reviewed, dictated and finalized at location B.
--- NOTE | ~2020-12-10 | XR_ITS ---
EXAMINATION: XR chest 1V portable EXAM DATE: 12/10/2020 12:54 INDICATION: Transient alteration of awareness. History of CHF. TECHNIQUE: Portable AP frontal chest x-ray was obtained. Comparison is made to prior examination from 11/29/2019. FINDINGS: Again there is cardiomegaly and pulmonary vascular congestion. Again there is ill-defined b ilateral perihilar reticulation, could be pulmonary edema. Pneumonia not excludable. No confluent con solidation, pneumothorax or pleural effusion. IMPRESSION: Cardiomegaly, congestion and pulmonary edema, stable or with mild progression. Pneumonia not excludable. Reviewed, dictated and finalized at location A.
--- NOTE | 2020-12-10 12:43 | ECG_ITS ---
Measurements Intervals [place] Rate: 74 P: [place]: 0 QRS: 114 QRSD: 94 T: -60 QT: 407 QTc: 454 Interpretive Statements ATRIAL FLUTTER/TACHYCARDIA LOW QRS VOLTAGE IN LIMB LEADS LEFT POSTERIOR FASCICULAR BLOCK BORDERLINE ST-T WAVE ABNORMALITY- INF/LAT LEADS BASELINE ARTIFACT- I, II, III, AVR, AVL, AVF, V2-V6 ABNORMAL ECG Electronically Signed On 12-10-2020 13:43:38 CDT by Waqas Shankar D.O.
[2020-12-10 13:03] LABS: Alveolar/Arterial O2 Gradient 134.3 mmHg; Base Excess ABG 8.9 mEq/l (+/-2.0); Carboxyhemoglobin 1.7 % THb (0-2.0); Device NASAL CANNULA; Fractional Inspired Oxygen 36 %; Methemoglobin ABG 0.3 %THb (0-1.5); Modified Allen's Test Pass; Oxygen Content ABG 12.1 %vol (16.0-22.0); Oxygen Saturation ABG 93.4 % (95.0-100.0); Oxyhemoglobin 89.4 % THb (90.0-100.0); PCO2 ABG 49.4 mmHg (35.0-45.0); PO2 ABG 65.1 mmHg (80.0-100.0); PO2 FiO2 Ratio Arterial Blood 1.81 %; Reduced Hemoglobin 8.6 %THb (0-5.0); Site Drawn RIGHT RADIAL; Total Hemoglobin 9.6 g/dL (12.0-18.0); pH ABG 7.455 (7.350-7.450)
[2020-12-10 13:57] LABS: Basophils Percent Auto 0.3 % (0.2-1.2); Eosinophils Percent Auto 0.3 % (0-4.4); Hematocrit 31.7 % (42.0-52.0); Hemoglobin 8.6 g/dL (14.0-18.0); Immature Granulocyte Absolute 0.03 K/mm3 (0.00-0.031); Immature Granulocyte Percent A 0.4 % (0-0.5); Immature Platelet Fraction Pct 11.5 % (0.9-11.2); Lymphocytes Absolute Auto 0.26 K/mm3 (0.9-3.2); Lymphocytes Percent Auto 3.7 % (18.3-44.2); Mean Corpuscular HGB Conc 27.1 g/dl (32-36); Mean Corpuscular Hemoglobin 21.2 pg (26-34); Mean Corpuscular Volume 78.3 fl (80-100); Monocytes Absolute Auto 0.9 K/mm3 (0.1-0.6); Monocytes Percent Auto 12.8 % (2.6-8.5); Neutrophils Absolute Auto 5.9 K/mm3 (1.3-6.7); Neutrophils Percent Auto 82.5 % (45.5-73.1); Platelet Count Result 112 k/mm3 (150-375); Red Blood Count 4.05 M/mm3 (4.6-6.20); Red Cell Distribution Width 21.4 % (11.5-14.5); White Blood Count 7.1 K/mm3 (4.5-10.0)
[2020-12-10 14:07] LABS: Blood Urea Nitrogen 38 mg/dL (9-20); Calcium 8.6 mg/dL (8.4-10.2); Carbon Dioxide > 40 mmol/L (22-30); Chloride 92 mmol/L (98-107); Estimated Glomerular Filt Rate > 60; Glucose 156 mg/dL (65-110); Sodium 138 mmol/L (137-145)
[2020-12-10 14:40] LABS: Platelet Estimate Decreased (Adequate)
[2020-12-10 14:42] LABS: Ovalocytes 1+ (NORMAL); Poikilocytosis 1+ (NORMAL)
--- NOTE | 2020-12-10 14:47 | ED.GENADULT ---
HPI - General Adult General Chief complaint: Altered Mental Status Stated complaint: FALL Time Seen by Provider: 12/10/20 13:31 Source: patient and EMS History of Present Illness HPI narrative: Patient is a 80 y/o male brought in by EMS for altered mental status. Patient was reportedly found by daughter on the floor. It's unknown how long he had been there. He is poor historian, and unable to provide any additional history. He was found to have low sat and placed on O2. He is supposed to be on O2 at home, but was not wearing O2 when EMS arrived. Related Data Home Medications Medication Instructions Recorded Confirmed Nuedexta See Rx Instructions .ROUTE .COMPLEX 10/24/20 11/28/20 enalapril maleate 5 mg PO DAILY 10/24/20 11/28/20 glipizide 2.5 mg PO DAILY PRN 10/24/20 11/28/20 metformin 1,000 mg PO DAILY PRN 10/24/20 11/28/20 pantoprazole 40 mg PO DAILY 10/24/20 11/28/20 pregabalin 75 mg PO TID 10/24/20 11/29/20 tamsulosin 0.4 mg PO DAILY 10/24/20 11/28/20 carvedilol 6.25 mg PO BID PRN 12/10/20 12/10/20 sennosides 17.2 mg PO HS 12/10/20 12/10/20 ferrous sulfate 4 ml PO DAILY 12/11/20 12/11/20 Allergies Allergy/AdvReac Type Severity Reaction Status Date / Time No Known Allergies Allergy Verified 12/10/20 21:44 Review of Systems Review of Systems: ROS unobtainable: Yes unobtainable due to mental status [facility] Past Medical History Medical History (Updated 12/11/20 @ 12:30 by Sandra Zarate MD) Anemia Arthritis Benign prostatic hyperplasia Cerebrovascular accident 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 Chronic anemia Chronic pain Patient had a pain pump inserted in February 2019. Chronic respiratory failure with hypoxia, on home oxygen therapy Baseline oxygen requirement is 3 L nasal cannula. Congestive heart failure Echocardiogram on 10/25/2020 showed preserved LV systolic function with an estimated EF of 50 to 55% and abnormal diastolic function. With repeat limited echocardiogram 11/2020 demonstrated EF of 40 45% and abnormal diastolic function. Coronary artery disease Gastroesophageal reflux disease History of bleeding peptic ulcer Hypertension Iron deficiency anemia Receives frequent iron infusions. Moderate pulmonary hypertension Estimated pulmonary arterial systolic pressure was 54 mmHg on echocardiogram dated 10/25/2020. Paroxysmal atrial fibrillation Pseudobulbar affect Spinal stenosis Type 2 diabetes mellitus Hemoglobin A1c was 6.3% on 10/25/2020. Surgical History Surgical History History of bilateral cataract extraction History of hernia repair Family History Family History Father Acute myocardial infarction Sibling Acute myocardial infarction Brain aneurysm Other No problems noted. Mother Breast cancer Social History Social History Social History: Healthcare power of regulatory attorney: Lennie Cruz, granddaughter. Code status: Full code. Smoking status: Former smoker Alcohol intake: never Substance use: never Substance use type: does not use Additional living arrangements comments: The patient lives in his own home in [place]. He ambulates with a walker but uses a wheelchair when outside of the home. 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 ? Spiritual care concerns: No Exam Const: General: no acute distress and well developed Orientation/consciousness: oriented to person, oriented to place and confusion HENMT: Head: normocephalic Ears: external ears normal General nose exam: Normal external nose present Eyes: General: appearance normal, both eyes and all related structures Conjunctivae: conjunctivae normal Neck: Neck: normal visual inspection and full ROM Chest: Chest palpation & inspection: n
[2020-12-10 15:03] LABS: Alanine Aminotransferase 18 U/L (4-50); Albumin Level 3.7 g/dL (3.5-5.1); Alkaline Phosphatase 95 U/L (38-126); Aspartate Amino Transferase 49 U/L (17-59); Bilirubin,Total 1.4 mg/dL (0.2-1.3); Creatine Kinase 97 U/L (55-170)
[2020-12-10 15:15] LABS: Troponin I 0.021 ng/mL (0.000-0.034)
[2020-12-10 15:59] LABS: Add Urine Microscopic? YES; Appearance Urine Clear (Clear); Bilirubin Urine Negative (Negative); Blood Urine Negative (Negative); Color Urine Yellow (Yellow); Glucose Urine UA Negative (Negative); Ketones Urine Negative (Negative); Leukocyte Esterase Ur Negative LEU/UL (Negative); Mucus Urine Rare /lpf; Nitrate Urine Negative (Negative); Protein Urine 1+ mg/dL (Negative); RBC Urine 0-2 /hpf (0-2); Specific Grav Ur 1.018 (1.001-1.035); Squamous Epithelial Cell Urine Rare /hpf (Few); Urobilinogen Urine Negative mg/dL (<2.0); WBC Urine 0-3 /hpf
[2020-12-10 16:52] LABS: D Dimer 1.12 ug/mL (<0.48)
[2020-12-10 18:46] LABS: NT Pro B Type Natriuretic Pept 8940 pg/mL (5-100)
[2020-12-10] MEDS: FUROSEMIDE INJ 40 MG/4 ML VIAL IV PUSH (19:30)
--- NOTE | 2020-12-10 21:43 | ADMGEN ---
This patient, Zack Orellana, was admitted to 3 [facility] Surg Room 325-01 at 2100. Patient/family oriented to hospital policies and general routines including ID bracelet, bed and alarms, visiting hours, pain management, procedures, bathroom and other care routines, personal items, smoking policy, room service/diet, and visiting hours. Information on how to activate the Rapid Response Team has been discussed. Patient/Family are encouraged to report perceived risks to care and to ask questions if they do not understand what they are told or what they should do.
--- NOTE | 2020-12-10 21:48 | PM.IMHP ---
H&P: HPI History of Present Illness Date/Time: 12/10/20 21:48 Chief Complaint: Altered mental status Narrative: 80-year-old male with past medical history of paroxysmal atrial fibrillation, pulmonary hypertension, diastolic and systolic CHF, coronary artery disease, pseudobulbar affect, spinal stenosis and diabetes mellitus who presented to the ER via EMS from home due to altered mental status. The patient's granddaughter who does not live with the patient from the patient on the floor and confused. The patient's initial pulse ox was low in the 80s and was as low as 67% in the ER. The patient is post be on chronic home O2 of 3 L but was not wearing his oxygen when EMS arrived to the home. The patient had generalized anasarca on exam and was having intermittent jerking motions. It was uncertain how long the patient had been on the floor. At the time of my evaluation the patient would open his eyes and would repeat the questions I was asking him but would not answer me any questions. Shortly after my evaluation the patient had to go to the bathroom and was awake enough to get up to the bedside commode. Patient's glucose in the field was within normal limits and repeat glucose on arrival to medical floor was 120. The patient had reported hip and shoulder pain to his granddaughter. She was concerned about him having a possible fracture. She was also concerned that she thought his left toes had some bruising and that he may have a bruise under his right eye. I ordered a shoulder x-ray which demonstrated [id number] arthritis and hip x-rayed demonstrated no acute process. He had a CT of the head in the ER which demonstrated no acute intercranial process. Patient's D-dimer was elevated in the ER in a stat CTA with PE protocol was ordered but was negative for PE but have bilateral small to moderate pleural effusions and bilateral infiltrates. The patient had been COVID tested in the ER and results are pending. CT also demonstrated subacute left rib fracture. The patient had evidently also been reporting some rib pain in the field. The patient reported generalized pain after he got up to the bedside commode. Patient had had a large incontinent void prior to my evaluation. He is afebrile. His COVID vaccine status is not known. Review of Systems Review of Systems: ROS unobtainable: Yes unobtainable due to mental status [facility] Past Medical History Medical History (Updated 12/11/20 @ 05:00 by Samantha Armas DO) Anemia Arthritis Benign prostatic hyperplasia Cerebrovascular accident 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 Chronic anemia Chronic pain Patient had a pain pump inserted in February 2019. Chronic respiratory failure with hypoxia, on home oxygen therapy Baseline oxygen requirement is 3 L nasal cannula. Congestive heart failure Echocardiogram on 10/25/2020 showed preserved LV systolic function with an estimated EF of 50 to 55% and abnormal diastolic function. With repeat limited echocardiogram 11/2020 demonstrated EF of 40 45% and abnormal diastolic function. Coronary artery disease Gastroesophageal reflux disease History of bleeding peptic ulcer Hypertension Iron deficiency anemia Receives frequent iron infusions. Moderate pulmonary hypertension Estimated pulmonary arterial systolic pressure was 54 mmHg on echocardiogram dated 10/25/2020. Paroxysmal atrial fibrillation Pseudobulbar affect Spinal stenosis Type 2 diabetes mellitus Hemoglobin A1c was 6.3% on 10/25/2020. Surgical History Surgical History History of bilateral cataract extraction History of hernia repair Family History Family History Father Acute myocardial infarction Sibling Acute myocardial infarction Brain aneurysm Other No problems noted. Mother Breast cancer Social History Social History (Reviewe
[2020-12-10 22:18] LABS: Glucose Point of Care 126 mg/dl (65-105)
[2020-12-10 22:31] LABS: Troponin I 0.021 ng/mL (0.000-0.034)
[2020-12-11] VITALS (11 sets, daily range): BP systolic 100–126; BP diastolic 53–66; PULSE 67–82; RESP 16–20; TEMP 36.3–36.8; O2SAT 87–99
[2020-12-11] MEDS: DONEPEZIL HCL 5 MG TABLET PO ×2 (00:57→21:58)
[2020-12-11] MEDS: ENALAPRIL MALEATE 5 MG TABLET PO ×3 (00:57→17:48)
[2020-12-11] MEDS: SENNOSIDES 8.6 MG TABLET 17.2 MG PO ×2 (00:58→21:58)
[2020-12-11] MEDS: PREGABALIN (*CRX) 75 MG CAPSULE PO ×4 (01:02→17:48)
--- NOTE | 2020-12-11 04:38 | PHAR ---
PHARMACY VERIFIED HOME MED: *USE FROM HOME* Dextromethorphan-Quinidine [Nuedexta] 20-10 mg capsule TAKE 1 CAPSULE BY MOUTH EVERY 12 HOURS
[2020-12-11 07:29] LABS: Hematocrit 33.2 % (42.0-52.0); Hemoglobin 8.8 g/dL (14.0-18.0); Immature Platelet Fraction Pct 12.7 % (0.9-11.2); Mean Corpuscular HGB Conc 26.5 g/dl (32-36); Mean Corpuscular Hemoglobin 20.9 pg (26-34); Mean Corpuscular Volume 78.9 fl (80-100); Platelet Count Result 122 k/mm3 (150-375); Red Blood Count 4.21 M/mm3 (4.6-6.20); Red Cell Distribution Width 21.2 % (11.5-14.5); White Blood Count 7.1 K/mm3 (4.5-10.0)
[2020-12-11 07:45] LABS: Anion Gap 9 mmol/L (8-16); Blood Urea Nitrogen 31 mg/dL (9-20); Calcium 8.5 mg/dL (8.4-10.2); Carbon Dioxide 39 mmol/L (22-30); Chloride 93 mmol/L (98-107); Estimated CRCL calculation 65 ml/min; Estimated Glomerular Filt Rate > 60; Glucose 104 mg/dL (65-110); Potassium 3.5 mmol/L (3.4-5.0); Sodium 141 mmol/L (137-145)
[2020-12-11 08:40] LABS: Glucose Point of Care 110 mg/dl (65-105)
[2020-12-11] MEDS: ASPIRIN 81 MG CHEWABLE TABLET PO (08:49)
[2020-12-11] MEDS: PANTOPRAZOLE 40 MG TABLET PO (08:51)
[2020-12-11] MEDS: TAMSULOSIN HCL 0.4 MG CAPSULE PO (08:51)
[2020-12-11] MEDS: FUROSEMIDE INJ 40 MG/4 ML VIAL IV PUSH ×2 (08:52→17:48)
[2020-12-11] MEDS: metFORMIN HCL 500 MG TABLET 1000 MG PO ×2 (08:52→17:49)
[2020-12-11] MEDS: MAGNESIUM OXIDE 400 MG TABLET PO ×2 (08:53→17:48)
[2020-12-11 12:04] LABS: Glucose Point of Care 114 mg/dl (65-105)
[2020-12-11 17:27] LABS: Glucose Point of Care 125 mg/dl (65-105)
--- NOTE | 2020-12-11 17:46 | P.PNIM_ITS ---
Progress Note: A&P Assessment and Plan (1) Systolic CHF, acute on chronic: Code(s): I50.23 - Acute on chronic systolic (congestive) heart failure Status: Acute Assessment and Plan: Patient's x-ray does show bilateral pleural effusions and his BNP is slightly elevated above baseline. His imaging findings are likely due to CHF exacerbation. * Continue Lasix IV b.i.d. * Monitor intake and output. Weigh daily. * Heart healthy diet * Continue carvedilol and enalapril * Consider cardiology consultation if no improvement * He was started on spironolactone 25 mg daily at last hospitalization 11/29/2020. Will resume this. (2) Person under investigation for COVID-19: Code(s): Z20.822 - Contact with and (suspected) exposure to COVID-19 Status: Acute Assessment and Plan: Radiology interpretation suggestive of possible underlying infectious process * COVID-19 test pending * He has not been vaccinated for COVID-19 * He is stable on his home O2 requirements, therefore no COVID-19 specific therapy including dexamethasone or remdesivir is indicated at this time (3) Chronic respiratory failure with hypoxia, on home O2 therapy: Code(s): J96.11 - Chronic respiratory failure with hypoxia; Z99.81 - Dependence on supplemental oxygen Status: Acute Assessment and Plan: Likely multifactorial related to patient's COPD, CHF, pulmonary hypertension. Requires 3 L supplemental O2 home * Maintaining adequate oxygenation on his home 3 L * Continue supplemental O2 as needed with goal saturation 90% or above (4) Altered mental status: Qualifiers: Altered mental status type: disorientation Qualified Code(s): R41.0 - Disorientation, unspecified Code(s): R41.82 - Altered mental status, unspecified Status: Acute Assessment and Plan: Noted to be confused and somnolent on presentation * He is A&O x4 on my evaluation * May have been due to hypoxia as he was not wearing his home O2 (5) Fall: Code(s): W19.XXXA - Unspecified fall, initial encounter Status: Acute Assessment and Plan: Patient was found on the floor by his granddaughter. * He is unable to recall any details regarding the fall * CK within normal limits at 97 * Head CT negative for acute findings.. Cervical spine CT negative for acute findings. * Hip and pelvic x-ray with no acute osseous abnormality. Shoulder x-ray with severe arthritis with no acute findings of the shoulder with evidence of subacute to chronic fracture of the posterior left 7th rib. Supportive care for this * Appreciate PT/OT eval * Fall precautions (6) Type 2 diabetes mellitus: Code(s): E11.9 - Type 2 diabetes mellitus without complications Status: Acute Assessment and Plan: Most recent A1c 6.16 October 2020. * Continue Accu-Cheks, sliding scale insulin, hypoglycemic protocol * Home glipizide on hold. He has had poor p.o. intake at this time * Continue metformin * Monitor blood sugar trends Subjective Date/time seen: 12/11/20 17:46 Interval history: Date of service: 12/11/2020 Zack Orellana is an 80-year-old male with a history of CVA, chronic respiratory failure on 3 L supplemental O2, CHF, CAD, hypertension atrial fibrillation not chronic anticoagulation, type 2 diabetes mellitus, and several other comorbidities who is seen in follow-up for weakness. He is feeling fairly well at this time aside from feeling overall weak. He had a fall at home the was not able to elaborate
--- NOTE | 2020-12-11 17:46 | PM.IMPN ---
Progress Note: A&P Assessment and Plan (1) Systolic CHF, acute on chronic: Code(s): I50.23 - Acute on chronic systolic (congestive) heart failure Status: Acute Assessment and Plan: Patient's x-ray does show bilateral pleural effusions and his BNP is slightly elevated above baseline. His imaging findings are likely due to CHF exacerbation. Continue Lasix IV b.i.d. Monitor intake and output. Weigh daily. Heart healthy diet Continue carvedilol and enalapril Consider cardiology consultation if no improvement He was started on spironolactone 25 mg daily at last hospitalization 11/29/2020. Will resume this. (2) Person under investigation for COVID-19: Code(s): Z20.822 - Contact with and (suspected) exposure to COVID-19 Status: Acute Assessment and Plan: Radiology interpretation suggestive of possible underlying infectious process COVID-19 test pending He has not been vaccinated for COVID-19 He is stable on his home O2 requirements, therefore no COVID-19 specific therapy including dexamethasone or remdesivir is indicated at this time (3) Chronic respiratory failure with hypoxia, on home O2 therapy: Code(s): J96.11 - Chronic respiratory failure with hypoxia; Z99.81 - Dependence on supplemental oxygen Status: Acute Assessment and Plan: Likely multifactorial related to patient's COPD, CHF, pulmonary hypertension. Requires 3 L supplemental O2 home Maintaining adequate oxygenation on his home 3 L Continue supplemental O2 as needed with goal saturation 90% or above (4) Altered mental status: Qualifiers: Altered mental status type: disorientation Qualified Code(s): R41.0 - Disorientation, unspecified Code(s): R41.82 - Altered mental status, unspecified Status: Acute Assessment and Plan: Noted to be confused and somnolent on presentation He is A&O x4 on my evaluation May have been due to hypoxia as he was not wearing his home O2 (5) Fall: Code(s): W19.XXXA - Unspecified fall, initial encounter Status: Acute Assessment and Plan: Patient was found on the floor by his granddaughter. He is unable to recall any details regarding the fall CK within normal limits at [address] negative for acute findings.. Cervical spine CT negative for acute findings. Hip and pelvic x-ray with no acute osseous abnormality. Shoulder x-ray with severe arthritis with no acute findings of the shoulder with evidence of subacute to chronic fracture of the posterior left 7th rib. Supportive care for this Appreciate PT/OT eval Fall precautions (6) Type 2 diabetes mellitus: Code(s): E11.9 - Type 2 diabetes mellitus without complications Status: Acute Assessment and Plan: Most recent A1c 6.16 October 2020. Continue Accu-Cheks, sliding scale insulin, hypoglycemic protocol Home glipizide on hold. He has had poor p.o. intake at this time Continue metformin Monitor blood sugar trends Subjective Date/time seen: 12/11/20 17:46 Interval history: Date of service: 12/11/2020 Zack Orellana is an 80-year-old male with a history of CVA, chronic respiratory failure on 3 L supplemental O2, CHF, CAD, hypertension atrial fibrillation not chronic anticoagulation, type 2 diabetes mellitus, and several other comorbidities who is seen in follow-up for weakness. He is feeling fairly well at this time aside from feeling overall weak. He had a fall at home the was not able to elaborate much on this fall, stating he does not remember the details. He denies any musculoskeletal pain at this time. Denies head pain, headache, or confusion. Denies bruising. He denies feeling short of breath. No cough. No chest pain or palpitations. He denies abdominal pain. His appetite has been fair. Denies anosmia or dysgeusia. No diarrhea. No urinary symptoms. No additional concerns at this time. Review of Systems Rev
[2020-12-11 23:32] LABS: Glucose Point of Care 136 mg/dl (65-105)
[2020-12-12] VITALS (7 sets, daily range): BP systolic 103–129; BP diastolic 51–66; PULSE 70–90; RESP 18–20; TEMP 36.4–36.7; O2SAT 93–100
[2020-12-12 01:27] LABS: SARS-CoV-2 RNA PCR Negative
[2020-12-12 06:50] LABS: Hemoglobin 8.6 g/dL (14.0-18.0); Immature Platelet Fraction Pct 12.1 % (0.9-11.2); Mean Corpuscular HGB Conc 26.1 g/dl (32-36); Mean Corpuscular Hemoglobin 20.8 pg (26-34); Mean Corpuscular Volume 79.9 fl (80-100); Platelet Count Result 118 k/mm3 (150-375); Red Blood Count 4.13 M/mm3 (4.6-6.20)
[2020-12-12 07:03] LABS: Blood Urea Nitrogen 26 mg/dL (9-20); Calcium 8.5 mg/dL (8.4-10.2); Carbon Dioxide > 40 mmol/L (22-30); Chloride 94 mmol/L (98-107); Estimated CRCL calculation 64 ml/min; Estimated Glomerular Filt Rate > 60; Glucose 110 mg/dL (65-110); Potassium 3.7 mmol/L (3.4-5.0); Sodium 138 mmol/L (137-145)
[2020-12-12] MEDS: ASPIRIN 81 MG CHEWABLE TABLET PO (08:20)
[2020-12-12] MEDS: PANTOPRAZOLE 40 MG TABLET PO (08:20)
[2020-12-12] MEDS: SPIRONOLACTONE 25 MG TABLET PO (08:21)
[2020-12-12] MEDS: metFORMIN HCL 500 MG TABLET 1000 MG PO ×2 (08:21→16:49)
[2020-12-12] MEDS: ENALAPRIL MALEATE 5 MG TABLET PO ×2 (08:21→16:50)
[2020-12-12] MEDS: MAGNESIUM OXIDE 400 MG TABLET PO ×2 (08:21→16:49)
[2020-12-12] MEDS: FUROSEMIDE INJ 40 MG/4 ML VIAL IV PUSH (08:21)
[2020-12-12] MEDS: PREGABALIN (*CRX) 75 MG CAPSULE PO ×3 (08:26→16:48)
[2020-12-12] MEDS: TAMSULOSIN HCL 0.4 MG CAPSULE PO (08:31)
[2020-12-12 09:31] LABS: Glucose Point of Care 105 mg/dl (65-105)
[2020-12-12 12:41] LABS: Glucose Point of Care 124 mg/dl (65-105)
--- NOTE | 2020-12-12 15:22 | PM.DS ---
DS: Admitting Diagnosis Discharge Date 12/12/2020 Admitting Diagnosis Altered mental status DS: Discharge Diagnosis Discharge Diagnosis (1) Systolic CHF, acute on chronic: Code(s): I50.23 - Acute on chronic systolic (congestive) heart failure Status: Acute Assessment and Plan: Patient's x-ray showed bilateral pleural effusions and his BNP was slightly elevated above baseline. His imaging findings were felt to be due to CHF exacerbation. Diuresed with IV Lasix b.i.d. he had good urine output and volume status improved. Continue home Lasix 40 mg b.i.d. p.o. Continue carvedilol and enalapril CHF education provided He was started on spironolactone 25 mg daily at last hospitalization 11/29/2020 but for some reason had not been taking this. He was unaware of this medication, as was his granddaughter who assists with his medications. I provided a new prescription and educated them both regarding this new medication. Continue with outpatient cardiology follow-up (2) Chronic respiratory failure with hypoxia, on home O2 therapy: Code(s): J96.11 - Chronic respiratory failure with hypoxia; Z99.81 - Dependence on supplemental oxygen Status: Acute Assessment and Plan: Likely multifactorial related to patient's COPD, CHF, pulmonary hypertension. Requires 3 L supplemental O2 home He maintained adequate oxygenation saturations on his baseline 3 L (3) Altered mental status: Qualifiers: Altered mental status type: disorientation Qualified Code(s): R41.0 - Disorientation, unspecified Code(s): R41.82 - Altered mental status, unspecified Status: Acute Assessment and Plan: Resolved. Noted to be confused and somnolent on presentation He is A&O x4 on my evaluation Likely due to hypoxia as he was not wearing his home O2. He was found on the ground without his oxygen. He is unsure why he did not have his oxygen on as he reports he is always compliant with wearing oxygen. Reiterated the importance of supplemental O2 at all times (4) Fall: Code(s): W19.XXXA - Unspecified fall, initial encounter Status: Acute Assessment and Plan: Patient was found on the floor by his granddaughter. He is unable to recall any details regarding the fall CK within normal limits at [address] negative for acute findings.. Cervical spine CT negative for acute findings. Hip and pelvic x-ray with no acute osseous abnormality. Shoulder x-ray with severe arthritis with no acute findings of the shoulder with evidence of subacute to chronic fracture of the posterior left 7th rib. Supportive care for this He was evaluated by PT/OT and did well. Home healthcare was arranged. The patient will be staying with his granddaughter for several days who will assist him. Fall precautions discussed at length. Continue with walker at all times (5) Type 2 diabetes mellitus: Code(s): E11.9 - Type 2 diabetes mellitus without complications Status: Acute Assessment and Plan: Most recent A1c 6.16 October 2020. Accu-Cheks, sliding scale insulin, hypoglycemic protocol initiated during this hospitalization Continue home metformin and glipizide (6) COVID-19 ruled out by laboratory testing: Code(s): Z20.822 - Contact with and (suspected) exposure to COVID-19 Status: Acute Assessment and Plan: COVID-19 test negative on 12/10/2020 Isolation precautions discontinued He has not been vaccinated for COVID-19. Discussed vaccination options with him and encouraged him to follow-up with PCP to arrange. (7) Chronic anemia: Code(s): D64.9 - Anemia, unspecified Status: Acute Assessment and Plan: Chronic iron deficiency anemia for which he follows with Dr. Dempsey He has missed his appointments for iron infusions due to recent hospitalizations Received IV iron infusion on 12/12/2020 Follow-up with Hematology for next
--- NOTE | 2020-12-12 17:00 | PC.NURSE ---
Patient refused IVP Lasix do to discharge he will take PO lasix when he gets home.
[2020-12-12 17:17] LABS: Glucose Point of Care 123 mg/dl (65-105)
== END 2020-12-12 18:55 | disposition home health service (06) ==
LOC: ANHED 14:02 → ANH2MED 18:24 → ANH3MEDSUR 20:51
PROVIDERS: Internal Medicine; Physician Assistant; Admitting Provider Family Medicine; Emergency Provider Emergency Medicine; PCP Internal Medicine; Visit Provider Internal Medicine
DX: I11.0 Hypertensive heart disease with heart failure (principal); I50.23 Acute on chronic systolic (congestive) heart failure; J96.11 Chronic respiratory failure with hypoxia; I48.91 Unspecified atrial fibrillation; D50.9 Iron deficiency anemia, unspecified; E11.9 Type 2 diabetes mellitus without complications; W19.XXXA Unspecified fall, initial encounter; Z99.81 Dependence on supplemental oxygen; Z20.822 Contact with and (suspected) exposure to COVID-19; Z79.84 Long term (current) use of oral hypoglycemic drugs; Z86.73 Personal history of transient ischemic attack (TIA), and cerebral infarction without residual deficits
CPT/HCPCS: 36415; 36600; 70450; 71045; 71275; 72125; 73030; 73502; 80048; 80076; 81001; 82375; 82550; 82805; 82948; 83050; 83880; 84484; 85025; 85027; 85055; 85380; 93005; 96374; 96375; 96376; 97162; 97165; 99285; A9270; C9803; G0378; J1756; J1940; Q9967; U0003; U0005

== ENCOUNTER 2020-12-24 16:37 | Inpatient (IN) | payer MEDICARE, MEDICAID, SELFPAY ==
--- NOTE | ~2020-12-24 | XR_ITS ---
EXAMINATION: XR chest 1V portable DATE: 12/24/2020 17:17 INDICATION: Cough. Shortness of breath. TECHNIQUE: A single frontal view of the chest was obtained. COMPARISON: Chest single view 12/10/2020, chest CT 12/11/2020 FINDINGS: There is a diffuse interstitial pattern in the lungs, consistent with mild pulmonary edema. There are small pleural effusions. No pneumothorax. Cardiomegaly is noted. IMPRESSION: 1. Mild pulmonary edema. 2. Small pleural effusions. 3. Cardiomegaly. Reviewed, dictated and finalized at location A.
--- NOTE | 2020-12-24 16:40 | ECG_ITS ---
Measurements Intervals [place] Rate: 94 P: PA: 0 QRS: 114 QRSD: 105 T: -22 QT: 389 QTc: 488 Interpretive Statements ATRIAL FLUTTER/TACHYCARDIA VENTRICULAR PREMATURE COMPLEX RIGHT AXIS DEVIATION LOW QRS VOLTAGE- DIFFUSE LEADS CANNOT RULE OUT SEPTAL INFARCT, AGE INDETERMINATE BORDERLINE ST-T WAVE ABNORMALITY- INFERIOR LEADS BASELINE WANDER- V5-V6 ABNORMAL ECG Electronically Signed On 12-24-2020 20:14:45 CDT by Waqas Shankar D.O.
[2020-12-24 16:50] VITALS: BP 122/73; PULSE 91; RESP 17; TEMP 36.8; O2SAT 98
--- NOTE | 2020-12-24 16:52 | ED.GENADULT ---
HPI - General Adult General Chief complaint: Shortness of Breath/Dyspnea Stated complaint: SOB Time Seen by Provider: 12/24/20 16:39 Source: RN notes reviewed History of Present Illness HPI narrative: Patient presents emergency department from home via EMS for shortness of breath. Patient was visited by home health today and was noted to have gained 5 pounds over the past several days was also noted to be more short of breath EMS was called when EMS arrived the patient was having oxygen saturations of 70% on his 3 L nasal cannula that he normally wears at that time was given a breathing treatment and moved to 4 L nasal cannula with improvement the patient has a history of COPD and CHF states has been taking all his medications. He states that he has been having increased swelling in his legs and increased shortness of breath with activity and laying flat he does note some chest heaviness as well he denies any fevers or chills notes mild cough is nonproductive Related Data Home Medications Medication Instructions Recorded Confirmed Nuedexta See Rx Instructions .ROUTE .COMPLEX 10/24/20 12/24/20 enalapril maleate 5 mg PO BID 10/24/20 12/24/20 glipizide 2.5 mg PO DAILY 10/24/20 12/24/20 metformin 1,000 mg PO BID 10/24/20 12/24/20 pantoprazole 40 mg PO DAILY 10/24/20 12/24/20 pregabalin 75 mg PO TID 10/24/20 12/24/20 tamsulosin 0.4 mg PO DAILY 10/24/20 12/24/20 carvedilol 6.25 mg PO BID PRN 12/10/20 12/24/20 sennosides 17.2 mg PO HS 12/10/20 12/24/20 ferrous sulfate 4 ml PO DAILY 12/11/20 12/24/20 Allergies Allergy/AdvReac Type Severity Reaction Status Date / Time No Known Allergies Allergy Verified 12/24/20 16:57 Review of Systems Review of Systems: Gen.: Denies fevers or chills ENT: Denies congestion Respiratory: See HPI CV: Reports chest pressure GI: Denies abdominal pain nausea, emesis or diarrhea Musculoskeletal: Denies back pain or muscle pain reports lower extremity edema Neuro: Denies numbness, tingling, weakness or focal weakness Skin: Denies rash Except as documented, all other systems reviewed and negative PMFSH Past Medical History Medical History Anemia Arthritis Benign prostatic hyperplasia Cerebrovascular accident 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 Chronic anemia Chronic pain Patient had a pain pump inserted in February 2019. Chronic respiratory failure with hypoxia, on home oxygen therapy Baseline oxygen requirement is 3 L nasal cannula. Congestive heart failure Echocardiogram on 10/25/2020 showed preserved LV systolic function with an estimated EF of 50 to 55% and abnormal diastolic function. With repeat limited echocardiogram 11/2020 demonstrated EF of 40 45% and abnormal diastolic function. Coronary artery disease Gastroesophageal reflux disease History of bleeding peptic ulcer Hypertension Iron deficiency anemia Receives frequent iron infusions. Moderate pulmonary hypertension Estimated pulmonary arterial systolic pressure was 54 mmHg on echocardiogram dated 10/25/2020. Paroxysmal atrial fibrillation Pseudobulbar affect Spinal stenosis Type 2 diabetes mellitus Hemoglobin A1c was 6.3% on 10/25/2020. Surgical History Surgical History History of bilateral cataract extraction History of hernia repair Family History Family History Father Acute myocardial infarction Sibling Acute myocardial infarction Brain aneurysm Other No problems noted. Mother Breast cancer Social History Social History (Updated 12/24/20 @ 22:44 by Kerry Castillo NP) Social History: The patient tells me that he only has 1 child. He is retired from the [employer]. He is a former smoker. No alcohol marijuana or illicit drugs. Healthcare power of assistant attorney general: Lennie Cruz, granddaughter. Code status: F
[2020-12-24 17:42] LABS: Basophils Percent Auto 0.2 % (0.2-1.2); Eosinophils Percent Auto 0.2 % (0-4.4); Hematocrit 32.5 % (42.0-52.0); Hemoglobin 8.8 g/dL (14.0-18.0); Immature Granulocyte Absolute 0.07 K/mm3 (0.00-0.031); Immature Granulocyte Percent A 0.9 % (0-0.5); Immature Platelet Fraction Pct 10.2 % (0.9-11.2); Lymphocytes Absolute Auto 0.26 K/mm3 (0.9-3.2); Lymphocytes Percent Auto 3.2 % (18.3-44.2); Mean Corpuscular HGB Conc 27.1 g/dl (32-36); Mean Corpuscular Hemoglobin 22.7 pg (26-34); Mean Corpuscular Volume 83.8 fl (80-100); Mean Platelet Volume 12.1 fl (7.4-10.4); Monocytes Absolute Auto 0.9 K/mm3 (0.1-0.6); Monocytes Percent Auto 11.4 % (2.6-8.5); Neutrophils Absolute Auto 6.8 K/mm3 (1.3-6.7); Neutrophils Percent Auto 84.1 % (45.5-73.1); Platelet Count Result 215 k/mm3 (150-375); Red Blood Count 3.88 M/mm3 (4.6-6.20); Red Cell Distribution Width 26.4 % (11.5-14.5); White Blood Count 8.1 K/mm3 (4.5-10.0)
[2020-12-24 17:48] LABS: INR 1.2
[2020-12-24 17:49] LABS: Partial Thromboplastin Time 34.6 SECONDS (22.3-36.8)
[2020-12-24 17:55] LABS: Alanine Aminotransferase 17 U/L (4-50); Albumin Level 3.8 g/dL (3.5-5.1); Alkaline Phosphatase 137 U/L (38-126); Aspartate Amino Transferase 45 U/L (17-59); Bilirubin,Total 0.9 mg/dL (0.2-1.3); Blood Urea Nitrogen 48 mg/dL (9-20); Calcium 8.6 mg/dL (8.4-10.2); Carbon Dioxide > 40 mmol/L (22-30); Chloride 88 mmol/L (98-107); Estimated Glomerular Filt Rate 39; Glucose 94 mg/dL (65-110); Potassium 5.3 mmol/L (3.4-5.0); Sodium 137 mmol/L (137-145)
[2020-12-24 18:06] LABS: NT Pro B Type Natriuretic Pept 8420 pg/mL (5-100); Troponin I 0.031 ng/mL (0.000-0.034)
[2020-12-24 18:26] LABS: Add Urine Microscopic? YES; Appearance Urine Clear (Clear); Bilirubin Urine Negative (Negative); Blood Urine Negative (Negative); Color Urine Yellow (Yellow); Glucose Urine UA Negative (Negative); Hyaline Casts Urine 20-29 /lpf; Ketones Urine Negative (Negative); Leukocyte Esterase Ur Negative LEU/UL (Negative); Mucus Urine Rare /lpf; Nitrate Urine Negative (Negative); Protein Urine 1+ mg/dL (Negative); RBC Urine 0-2 /hpf (0-2); Specific Grav Ur 1.017 (1.001-1.035); Squamous Epithelial Cell Urine Rare /hpf (Few); Urobilinogen Urine Negative mg/dL (<2.0); WBC Urine 0-3 /hpf
[2020-12-24 18:27] LABS: Alveolar/Arterial O2 Gradient 73.1 mmHg; Base Excess ABG 15.3 mEq/l (+/-2.0); Fractional Inspired Oxygen 32 %; HCO3 ABG 42.7 mEq/l (22.0-26.0); Modified Allen's Test Pass; Oxygen Content ABG 12.9 %vol (16.0-22.0); Oxygen Saturation ABG 93.4 % (95.0-100.0); Oxyhemoglobin 90.6 % THb (90.0-100.0); PCO2 ABG 71.9 mmHg (35.0-45.0); PO2 ABG 70.9 mmHg (80.0-100.0); PO2 FiO2 Ratio Arterial Blood 2.22 %; Site Drawn LEFT RADIAL; Total Hemoglobin 10.1 g/dL (12.0-18.0); pH ABG 7.392 (7.350-7.450)
[2020-12-24 18:28] LABS: Device NASAL CANNULA
[2020-12-24 19:20] VITALS: BP 107/57; PULSE 80; RESP 14; O2SAT 95
[2020-12-24] MEDS: FUROSEMIDE INJ 40 MG/4 ML VIAL IV PUSH (19:44)
--- NOTE | 2020-12-24 20:14 | PC.NURSE ---
rn in isolation ,pending question on sbar
[2020-12-24 21:14] VITALS: BP 120/53; PULSE 88; RESP 22; TEMP 36.4; O2SAT 94
[2020-12-24 21:15] VITALS: O2SAT 94
[2020-12-24 21:16] VITALS: BMI 32.8
[2020-12-24 22:00] VITALS: PULSE 78
--- NOTE | 2020-12-24 22:31 | PM.IMHP ---
H&P: HPI History of Present Illness Date/Time: 12/24/20 22:31 this is a 80-year-old male patient who lives home alone and received home health care. The patient has a history of congestive heart failure. Last echo was on 10/25/2020 which was read as EF of 50-55% moderate aortic valve sclerosis. Mitral valve has moderately calcified annulus. Moderate pulmonary hypertension estimated pulmonary arterial systolic pressure is 54 mm Hg. The patient came into the emergency room today via EMS for complaints of shortness of breath. The home health nurse came to visit him today and stated that he had a weight gain of 5 lb over last several days. When EMS arrived the patient was having an O2 saturation of 70% on his usual 3 L of oxygen per nasal cannula. Patient's H&H was noted to be 8.8 and 32.5. Which is his baseline. On his arterial blood gases pH 7.392. CO2 is 71.9. PO2 was 70.9. Potassium was found to be 5.3 with chloride 88 and carbon dioxide greater than 40. BUN 48 creatinine 1.7. The patient typically has normal BUN and creatinine. Troponin 0.031 and 0.070 respectively. BNP 8420. Chest x-ray was read as put mild pulmonary edema, small pleural effusion. Cardiomegaly. Patient was given IV Lasix 20. The patient continues to have jerky motions. He is also very hard of hearing and I am having difficulty getting to understand me at times. The patient is being admitted for observation status on the date of service of 12/24/2020 Chief Complaint: Shortness of breath and weight gain Review of Systems Review of Systems: All systems reviewed & are unremarkable except as noted in HPI and below Constitutional: Constitutional: Reports as per HPI and Reports no additional constitutional complaints Eyes: Eyes: Reports as per HPI and Reports no additional eye complaints ENT: Reports system reviewed and no additional complaints, except as documented and Reports Normal hearing present Cardiovascular: Cardiovascular: Reports no additional cardiovascular complaints Respiratory: Respiratory: Reports no additional respiratory complaints and Reports no additional respiratory complaints Gastrointestinal: Gastrointestinal: Reports as per HPI and Reports no additional gastrointestinal complaints Musculoskeletal: Musculoskeletal: Reports no additional musculoskeletal complaints Integumentary/Breasts: Skin/Breast: Reports system reviewed and no additional complaints, except as docu and Reports as per HPI Neurologic: Reports system reviewed and no additional complaints, except as documented, Reports as per HPI and Reports Normal hearing present Psychiatric: Psychiatric: Reports no additional psychiatric complaints and Reports as per HPI Endocrine: Endocrine: Reports no additional endocrine complaints Hematologic/Lymphatic: Hematologic/Lymphatic: Reports no additional hematologic/lymphatic complaints Allergic/Immunologic: Allergic/Immunologic: Reports no additional allergic/immunologic complaints COUNT INCLUDES THE [facility] Past Medical History Medical History Anemia Arthritis Benign prostatic hyperplasia Cerebrovascular accident 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 Chronic anemia Chronic pain Patient had a pain pump inserted in February 2019. Chronic respiratory failure with hypoxia, on home oxygen therapy Baseline oxygen requirement is 3 L nasal cannula. Congestive heart failure Echocardiogram on 10/25/2020 showed preserved LV systolic function with an estimated EF of 50 to 55% and abnormal diastolic function. With repeat limited echocardiogram 11/2020 demonstrated EF of 40 45% and abnormal diastolic function. Coronary artery disease Gastroesophageal reflux disease History of bleeding peptic ulcer Hypertension Iron deficiency anemia Receives frequent iron infusions. Moderate pulmonary hypertension Estimated pulmonary arterial systolic pressure was 54 mmHg on echocardiogram d
[2020-12-24 23:39] VITALS: BP 115/67; PULSE 75; RESP 22; TEMP 36.5; O2SAT 90
--- NOTE | 2020-12-24 23:39 | ADMGEN ---
This patient, Zack Orellana, was admitted to IMU Room 210-01 on 12/24/2020 at 2110. Patient/family oriented to hospital policies and general routines including ID bracelet, bed and alarms, visiting hours, pain management, procedures, bathroom and other care routines, personal items, smoking policy, room service/diet, and visiting hours. Information on how to activate the Rapid Response Team has been discussed. Patient/Family are encouraged to report perceived risks to care and to ask questions if they do not understand what they are told or what they should do.
[2020-12-25] VITALS (21 sets, daily range): BP systolic 110–128; BP diastolic 55–69; PULSE 60–92; RESP 15–22; TEMP 36.2–36.9; O2SAT 90–100
[2020-12-25 00:04] LABS: Alveolar/Arterial O2 Gradient 54.9 mmHg; Base Excess ABG 16.3 mEq/l (+/-2.0); Fractional Inspired Oxygen 28 %; HCO3 ABG 43.8 mEq/l (22.0-26.0); Oxygen Content ABG 11.7 %vol (16.0-22.0); Oxygen Saturation ABG 88.7 % (95.0-100.0); Oxyhemoglobin 84.8 % THb (90.0-100.0); PO2 ABG 58.2 mmHg (80.0-100.0); PO2 FiO2 Ratio Arterial Blood 2.08 %; Total Hemoglobin 9.8 g/dL (12.0-18.0); pH ABG 7.394 (7.350-7.450)
[2020-12-25 00:07] LABS: Modified Allen's Test Pass; PCO2 ABG 73.3 mmHg (35.0-45.0); Site Drawn RIGHT RADIAL
[2020-12-25 00:08] LABS: Device NASAL CANNULA
[2020-12-25] MEDS: SENNOSIDES 8.6 MG TABLET 17.2 MG PO ×2 (00:27→20:35)
[2020-12-25] MEDS: DONEPEZIL HCL 5 MG TABLET PO ×2 (00:27→20:37)
[2020-12-25] MEDS: PREGABALIN (*CRX) 75 MG CAPSULE PO ×4 (00:31→16:59)
[2020-12-25 01:09] LABS: Troponin I 0.083 ng/mL (0.000-0.034)
--- NOTE | 2020-12-25 03:21 | PHAR ---
PHARMACY VERIFIED HOME MED: *HOME MED* Dextromethorphan-Quinidine [Nuedexta] 20-10 mg capsule Take 1 capsule by mouth every 12 hours
[2020-12-25 05:44] LABS: Lactic Acid Reflex 1.3 mmol/L (0.7-2.1)
[2020-12-25 05:56] LABS: Alanine Aminotransferase 14 U/L (4-50); Albumin Level 3.3 g/dL (3.5-5.1); Alkaline Phosphatase 105 U/L (38-126); Aspartate Amino Transferase 48 U/L (17-59); Bilirubin,Total 0.8 mg/dL (0.2-1.3); Blood Urea Nitrogen 54 mg/dL (9-20); Calcium 8.3 mg/dL (8.4-10.2); Carbon Dioxide > 40 mmol/L (22-30); Chloride 88 mmol/L (98-107); Estimated CRCL calculation 43 ml/min; Estimated Glomerular Filt Rate 45; Glucose 58 mg/dL (65-110); Lactate Dehydrogenase 644 U/L (313-618); Magnesium 1.9 mg/dL (1.6-2.3); Potassium 5.1 mmol/L (3.4-5.0); Sodium 134 mmol/L (137-145)
[2020-12-25] MEDS: DEXTROSE 50% 25 GM/50 ML SYRINGE IV PUSH (06:15)
[2020-12-25 06:40] LABS: Thyroid Stimulating Hormone Reflex 0.647 uIU/mL (0.465-4.68)
[2020-12-25 06:50] LABS: Glucose Point of Care 72 mg/dl (65-105)
[2020-12-25 06:50] LABS: Glucose Point of Care 133 mg/dl (65-105)
[2020-12-25 06:59] LABS: Basophils Percent Auto 0.5 % (0.2-1.2); Eosinophils Absolute Auto 0.3 K/mm3 (0-0.3); Eosinophils Percent Auto 4.9 % (0-4.4); Hematocrit 32.2 % (42.0-52.0); Hemoglobin 8.9 g/dL (14.0-18.0); Immature Granulocyte Absolute 0.02 K/mm3 (0.00-0.031); Immature Granulocyte Percent A 0.3 % (0-0.5); Immature Platelet Fraction Pct 9.5 % (0.9-11.2); Lymphocytes Absolute Auto 0.66 K/mm3 (0.9-3.2); Lymphocytes Percent Auto 11.2 % (18.3-44.2); Mean Corpuscular HGB Conc 27.6 g/dl (32-36); Mean Corpuscular Hemoglobin 22.4 pg (26-34); Mean Corpuscular Volume 81.1 fl (80-100); Mean Platelet Volume 11.6 fl (7.4-10.4); Monocytes Percent Auto 17.1 % (2.6-8.5); Neutrophils Absolute Auto 3.9 K/mm3 (1.3-6.7); Platelet Count Result 214 k/mm3 (150-375); Red Blood Count 3.97 M/mm3 (4.6-6.20); Red Cell Distribution Width 26.5 % (11.5-14.5); White Blood Count 5.9 K/mm3 (4.5-10.0)
[2020-12-25 07:50] LABS: Alveolar/Arterial O2 Gradient 71.6 mmHg; Base Excess ABG 13.7 mEq/l (+/-2.0); Carboxyhemoglobin 1.6 % THb (0-2.0); Fractional Inspired Oxygen 35 %; HCO3 ABG 40.4 mEq/l (22.0-26.0); Methemoglobin ABG 0.2 %THb (0-1.5); Oxygen Content ABG 12.3 %vol (16.0-22.0); Oxygen Saturation ABG 97.5 % (95.0-100.0); Oxyhemoglobin 95.1 % THb (90.0-100.0); PO2 FiO2 Ratio Arterial Blood 2.91 %; Reduced Hemoglobin 3.1 %THb (0-5.0); Total Hemoglobin 9.1 g/dL (12.0-18.0); pH ABG 7.409 (7.350-7.450)
[2020-12-25 07:52] LABS: Device NON-INVASIVE VENT; Modified Allen's Test Pass; PCO2 ABG 65.3 mmHg (35.0-45.0); Site Drawn RIGHT RADIAL
[2020-12-25 07:53] LABS: Non-Invasive Expiratory Pressure 6 CMH2O; Non-Invasive Inspiratory Pressure 12 CMH2O; Non-Invasive Vent Rate 14 /MIN
[2020-12-25 08:00] LABS: Hypochromasia 2+ (NORMAL); Platelet Estimate Adequate (Adequate)
[2020-12-25] MEDS: TAMSULOSIN HCL 0.4 MG CAPSULE PO (08:21)
[2020-12-25] MEDS: MAGNESIUM OXIDE 400 MG TABLET PO ×2 (08:22→16:59)
[2020-12-25] MEDS: FUROSEMIDE INJ 40 MG/4 ML VIAL IV PUSH ×2 (08:22→16:59)
[2020-12-25] MEDS: PANTOPRAZOLE 40 MG TABLET PO (08:22)
[2020-12-25] MEDS: ASPIRIN 81 MG CHEWABLE TABLET PO (08:25)
[2020-12-25 08:32] LABS: Glucose Point of Care 109 mg/dl (65-105)
--- NOTE | 2020-12-25 09:39 | PCPTNOTE ---
Attempted PT evaluation this date, RN requested to check back this afternoon due to pt being on Bipap and increased CO2 levels.
--- NOTE | 2020-12-25 09:57 | PCOTNOTE ---
Per nurse request Pt. will be seen in PM due to being on bipap and CO2 levels
--- NOTE | 2020-12-25 10:14 | PM.CNCAR ---
Assessment and Plan Assessment and plan (1) CHF (congestive heart failure): Code(s): I50.9 - Heart failure, unspecified Status: Acute Assessment and Plan: Acute on chronic combined systolic and diastolic heart failure. On Lasix 40 mg IV BID. Due to hyperkalemia with Spironolactone will not continue this. Instead will add Metolazone to keep him euvolemic once transitioned to PO Lasix. Have him take regularly Coreg 3.125 mg BID and on Enalapril. (2) Elevated troponin: Code(s): R77.8 - Other specified abnormalities of plasma proteins Status: Acute Assessment and Plan: Slightly elevated only. Trend troponin to peak. EKG is unremarkable. Probably related to volume overload from CHF, CKD, Anemia. (3) Atrial flutter: Code(s): I48.92 - Unspecified atrial flutter Status: Acute Assessment and Plan: Rate is controlled. Not on anticoagulation due to history of bleeding gastric ulcers. History of Present Illness History of Present Illness Consult date/time: 12/25/20 10:14 Reason for consult: CHF. 80 yr old man presents to ER by EMS due to shortness of breath. His regular chummer is at [facility], Dr. Caban, and sees him regularly. He has a history of CHF, CAD with GA and several stents (last cath about 3 years ago per patient), atrial fib/flutter, DM, hypertension, iron deficiency anemia requiring iron infusions. Reports that he noted more edema of legs and sob in last few days so EMS was called. He also noted chest pressure lasting seconds yesterday. He received IV Lasix and breathing is better on CPAP currently. Normally he can walk with his cane about 20 feet and gets BARRAZA which is chronic for him. He is on 3 l/m of oxygen at home. Denies chest pain, orthopnea, PND, dizziness, palpitations. ABG 7.39/71/70 on 32% FiO2. Potassium 5.1, Sodium 134, Cr 1.5/GFR 43. Troponin .083, NTpro BNP 8,420. EKG shows atrial flutter, cannot r/o septal infarct, borderline ST-T wave in inferior leads. CXR shows mild pulm edema and small pleural effusion. 11/17/20 Limited echo shows EF 40%, diastolic dysfunction, mod TR. An echo on 10/25/20 EF 50-55%, diastolic dysfunction (E/e' 10), severe LAE, mod GULSHAN, mod MAC, RVSP 54 mmHg. Reason For Visit: CHF, Respiratory Failure w/Hypoxia, Acute Renal Fa Review of Systems Review of Systems: All systems reviewed & are unremarkable except as noted in HPI and below Constitutional: Constitutional: Reports as per HPI, Denies chills and Denies fever(s) Cardiovascular: Cardiovascular: Reports as per HPI, Reports chest pain, Denies irregular heart rhythm, Reports leg edema and Denies lightheadedness Respiratory: Respiratory: Reports as per HPI and Reports dyspnea Gastrointestinal: Gastrointestinal: Reports as per HPI and Denies abdominal pain Genitourinary: Genitourinary: Reports as per HPI and Denies dysuria Musculoskeletal: Musculoskeletal: Reports as per HPI Neurologic: Reports as per HPI, Denies dizziness and Denies syncope [facility] Past Medical History Medical History Anemia Arthritis Benign prostatic hyperplasia Cerebrovascular accident 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 Chronic anemia Chronic pain Patient had a pain pump inserted in February 2019. Chronic respiratory failure with hypoxia, on home oxygen therapy Baseline oxygen requirement is 3 L nasal cannula. Congestive heart failure Echocardiogram on 10/25/2020 showed preserved LV systolic function with an estimated EF of 50 to 55% and abnormal diastolic function. With repeat limited echocardiogram 11/2020 demonstrated EF of 40 45% and abnormal diastolic function. Coronary artery disease Gastroesophageal reflux disease History of bleeding peptic ulcer Hypertension Iron deficiency anemia Receives frequent iron infusions. Moderate pulmonary hypertension Estimated pulmonary arterial systolic pressure
[2020-12-25 11:07] LABS: Troponin I 0.075 ng/mL (0.000-0.034)
--- NOTE | 2020-12-25 12:05 | PM.CNPUL ---
Assessment and Plan Assessment and plan (1) Acute respiratory failure with hypoxia: Code(s): J96.01 - Acute respiratory failure with hypoxia Status: Acute Assessment and Plan: Patient with a history of hypoxemic respiratory failure on 3 L nasal cannula at home. On his last discharged on 12/10/2020 at 12:59 p.m. he had a blood gas on 4 L with a pH of 7.46/49/65. This was on the day of discharge after diuresis and it shows no chronic hypercarbic respiratory failure. I suspect his worsening hypercarbic and hypoxemic respiratory failure at this time related to his fluid overload. agree with aggressively diuresing patient has tolerated by his cardiac and renal systems per the hospitalist and Cardiology teams. Patient currently has improved with diuretics. There is no evidence of bullous emphysema on his prior CT scan of the chest and he had PFTs 3-4 years ago at [facility] and no one ever mentioned COPD to him and he was never started on any bronchodilators. At this time I do not feel this is a COPD exacerbation and did not feel a need for bronchodilators, steroids or antibiotics. This morning he is comfortable off the BiPAP and I have told him he should use the BiPAP only if he needs it otherwise to use nasal cannula oxygen and he is on 4 L with saturations 96%. I would wean this to maintain a saturation of 90-94%. On the night prior to discharge he should have an overnight oximetry on supplemental oxygen to assess his oxygen requirements at night. He will need a formal home O2 assessment prior to discharge To assess his oxygen needs at rest and with ambulation. After he is euvolemic, he should have PFTs, ABG and home O2 assessment as an outpatient. (2) Daytime hypersomnia: Code(s): G47.10 - Hypersomnia, unspecified Status: Acute Assessment and Plan: Patient was told by his 20 years ago that he did stop breathing in his sleep. the patient tells me that it only happened at that time and has not happened since. His 7 years ago but his granddaughter stays with him until about midnight and she has never mentioned any witnessed apneic events. The patient states that he does have daytime hypersomnia 1 that and started about 1-2 months ago that correlates with his worsening fluid overload. Patient should have an outpatient in lab polysomnogram to assess for obstructive sleep apnea. Patient can follow in pulmonary clinic in 3-4 weeks. Discussed with Cherry Santana, will sign off, please call with any questions. History of Present Illness History of Present Illness Consult date: 12/25/20 Requesting physician: Cherry Santana PA-C Reason for consult: dyspnea Chief complaint: CHF, Respiratory Failure w/Hypoxia, Acute Renal Fa Narrative: 12/25/20 This is a new Pulmonary consult for congestive heart failure and chronic hypercarbic respiratory failure 80-year-old with a history of congestive heart failure, coronary artery disease status post multiple stents, atrial fib -flutter, diabetes, hypertension, who presents with 2 months history shortness of breath, pedal edema and a previous hospitalization in which he was diuresed and he felt better. Patient was also seen as an outpatient and his Lasix was increased from 20-40 b.i.d. about 3 weeks ago. Patient states he has had weight gain from 217 lb at hospice last hospital discharge to 226 now. He states that at home he is on 3 L nasal cannula and his saturations on 3 L are 91-92%. At times he wears no oxygen and his resting room air saturations are 84-86%. currently patient denies any fever, minimal yellow to white phlegm production, 3 week history of cough, denies rigors or chest pain. Patient has chronic 2 pillow orthopnea and wakes up at night to urinate 2-3 times which is unchanged for him. Patient was admitted in the emergency department with a blood gas of 7.39/72/71 on 3 L nasal cannula. Repeat blood gas on 2 L nasal yakelin
[2020-12-25 12:40] LABS: Glucose Point of Care 159 mg/dl (65-105)
--- NOTE | 2020-12-25 14:53 | PCPTNOTE ---
On 12/25/20, the student, Joby Gardiner, provided care and completed [facility] documentation on this patient. I have reviewed the student's documentation and agree with the findings.
--- NOTE | 2020-12-25 15:44 | PM.IMPN ---
Progress Note: A&P Assessment and Plan (1) Acute respiratory failure with hypoxia and hypercapnia: Code(s): J96.01 - Acute respiratory failure with hypoxia; J96.02 - Acute respiratory failure with hypercapnia Status: Acute Assessment and Plan: The patient is chronically on oxygen at 3 L per nasal cannula but has never had severe hypercapnia on prior ABGs. ABG on arrival showed normal compensated pH, but pCO2 was elevated at 70. Patient was placed on a BiPAP on arrival and repeat ABG this morning showed improvement of pCO2 at 65 and continued to have normal pH. I consulted pulmonology who believes his acute respiratory failure secondary to fluid overload and he was admitted for IV diuresis. Pulmonology would like further evaluation with an apnea link with only pulse oximetry data of the evening before discharge Pulmonology would like for him to follow-up in the office in 1 week to have PFTs, repeat ABG, 6 minute walk study and a formal sleep study to be completed. Chest x-ray was read as mild pulmonary edema. Small pleural effusion. Cardiomegaly. Continue monitoring with diuresis (2) Systolic CHF, acute on chronic: Code(s): I50.23 - Acute on chronic systolic (congestive) heart failure Status: Acute Assessment and Plan: Chest x-ray shows small pleural effusion and cardiomegaly. The patient tells me that he has been taking his home medications. Home health has been weighing him. Continue with patient's home medications but it looks like he is on Coreg but it is showing NEEDED for heart rate control unsure if he has been taking this twice daily as recommended. Continue IV Lasix 40 mg BID Weight daily Fluid restriction 1200cc Continue monitoring intake and output. Electrolytes and renal function during diuresis (3) Acute renal insufficiency: Code(s): N28.9 - Disorder of kidney and ureter, unspecified Status: Acute Assessment and Plan: Patient's creatinine on arrival was 1.7 due to his fluid overload status. With diuresis it improved to 1.5 today. And review on prior labs it does return back down to normal after diuresis. Going to hold his metformin for now. Continue to monitor renal function daily. (4) Chronic anemia: Code(s): D64.9 - Anemia, unspecified Status: Acute Assessment and Plan: Patient is at his baseline. Hemoglobin 8.9, hematocrit 32% today. No signs of GI bleeding. Continue monitoring, ppi daily. (5) Atrial flutter: Code(s): I48.92 - Unspecified atrial flutter Status: Acute Assessment and Plan: Continue with Coreg. Rate controlled at this time. He is not on any anticoagulation for this. Will have SCDs in place for DVT prophylaxis during hospitalization. (6) Hypertension: Code(s): I10 - Essential (primary) hypertension Status: Acute Assessment and Plan: Blood pressure was slightly low this morning 110/60. Cardiology, Dr. Shankar, evaluated the patient and decreased his Coreg to 3.125 mg q.12 hours. Enalapril was on hold due to elevated creatinine. Will most likely restart tomorrow once creatinine improves on labs. (7) Type 2 diabetes mellitus: Code(s): E11.9 - Type 2 diabetes mellitus without complications Status: Acute Assessment and Plan: Will hold his oral pills at this time. Continue monitoring a.c. HS. Sliding scale insulin. Hypoglycemic protocol in place. Hemoglobin A1c was noted to be 6.3 on 10/25/2020. Time Spent With Patient Time with patient: 25 - 35 minutes Subjective Date/time seen: 12/25/20 15:44 Interval history: Date of ser
[2020-12-25 16:17] LABS: Glucose Point of Care 135 mg/dl (65-105)
[2020-12-25 20:05] LABS: Glucose Point of Care 171 mg/dl (65-105)
[2020-12-25] MEDS: carvediloL 3.125 MG TABLET PO (20:36)
[2020-12-26] VITALS (17 sets, daily range): BP systolic 101–107; BP diastolic 46–76; PULSE 54–83; RESP 12–22; TEMP 36.6–37.2; O2SAT 91–100
[2020-12-26 05:16] LABS: Hematocrit 30.2 % (42.0-52.0); Hemoglobin 8.4 g/dL (14.0-18.0); Immature Platelet Fraction Pct 9.2 % (0.9-11.2); Mean Corpuscular HGB Conc 27.8 g/dl (32-36); Mean Corpuscular Hemoglobin 22.8 pg (26-34); Mean Corpuscular Volume 81.8 fl (80-100); Mean Platelet Volume 11.2 fl (7.4-10.4); Platelet Count Result 205 k/mm3 (150-375); Red Blood Count 3.69 M/mm3 (4.6-6.20); Red Cell Distribution Width 26.2 % (11.5-14.5); White Blood Count 4.4 K/mm3 (4.5-10.0)
[2020-12-26 05:30] LABS: Blood Urea Nitrogen 38 mg/dL (9-20); Calcium 8.4 mg/dL (8.4-10.2); Carbon Dioxide > 40 mmol/L (22-30); Chloride 88 mmol/L (98-107); Estimated CRCL calculation 50 ml/min; Estimated Glomerular Filt Rate 53; Glucose 120 mg/dL (65-110); Magnesium 1.8 mg/dL (1.6-2.3); Sodium 136 mmol/L (137-145)
--- NOTE | 2020-12-26 08:05 | PM.PNCARD ---
Progress Note: A&P Assessment and Plan (1) CHF (congestive heart failure): Code(s): I50.9 - Heart failure, unspecified Status: Acute Assessment and Plan: Acute on chronic combined systolic and diastolic heart failure. On Lasix 40 mg IV BID. Due to hyperkalemia with Spironolactone will not continue this. Instead will add Metolazone to keep him euvolemic once transitioned to PO Lasix. Have him take regularly Coreg 3.125 mg BID and on Enalapril restarted at lower dose 5 mg daily. (2) Elevated troponin: Code(s): R77.8 - Other specified abnormalities of plasma proteins Status: Acute Assessment and Plan: Slightly elevated only. Troponin peaked at .083. EKG is unremarkable. Probably related to volume overload from CHF, CKD, Anemia. (3) Atrial flutter: Code(s): I48.92 - Unspecified atrial flutter Status: Acute Assessment and Plan: Rate is controlled. Not on anticoagulation due to history of bleeding gastric ulcers. Subjective Date/time seen: 12/26/20 08:05 Denies chest pain or sob. Exam Const: General: cooperative, healthy appearing and comfortable Nutritional Appearance: obese Resp: Auscultation: crackles, no rales, no rhonchi, no wheezes and diminished lung sounds Cardio: Jugular venous distension: no JVD Rate: regular rate Rhythm: abnormal rhythm Heart sounds: no murmurs Peripheral pulses: dorsalis pedis present GI: GI Palp: No abdominal tenderness and Yes Soft to palpation Neuro: General: oriented to person, oriented to place and oriented to time Extrem: Right lower extremity: no edema Left lower extremity: no edema Objective Data Vital Signs Vital Signs: Vital Signs - 24 hr 12/25/20 08:36 12/25/20 08:50 12/25/20 10:00 Temperature 98.4 F Pulse Rate 72 72 75 Respiratory Rate 19 15 Blood Pressure 127/69 Pulse Oximetry 98 97 12/25/20 12:00 12/25/20 12:48 12/25/20 14:00 Temperature 97.6 F Pulse Rate 73 72 83 Respiratory Rate 22 H Blood Pressure 113/62 Pulse Oximetry 97 94 12/25/20 16:00 12/25/20 16:45 12/25/20 18:00 Temperature 97.1 F L Pulse Rate 66 69 77 Respiratory Rate 22 H Blood Pressure 112/55 L Pulse Oximetry 97 94 12/25/20 20:00 12/25/20 20:36 12/25/20 22:00 Temperature 97.8 F Pulse Rate 73 71 68 Respiratory Rate 20 Blood Pressure 128/64 Pulse Oximetry 97 12/25/20 22:45 12/25/20 23:16 12/26/20 00:00 Temperature 97.6 F Pulse Rate 60 60 56 L Respiratory Rate 19 20 Blood Pressure 122/64 Pulse Oximetry 94 94 95 12/26/20 02:00 12/26/20 02:48 12/26/20 04:00 Temperature 98.2 F Pulse Rate 65 59 L 61 Respiratory Rate 16 22 H Blood Pressure 103/54 L Pulse Oximetry 91 94 12/26/20 06:00 Temperature Pulse Rate 79 Respiratory Rate Blood Pressure Pulse Oximetry Intake/Output Intake/Output: Intake & Output 12/23/20 12/24/20 12/25/20 12/26/20 23:59 23:59 23:59 23:59 Intake Total 1020 Output Total 2150 700 Balance -1130 -700 Meds/Results Medications: Active Medications Generic Name Dose Route Start Last Admin Trade Name Freq PRN Reason Stop Dose Admin Aspirin 81 mg 12/25/20 08:00 12/25/20 08:25 Aspirin 81 Mg Chewable Tablet PO 81 mg DAILY@0800 REHAN Administration Carvedilol 3.125 mg 12/25/20 21:00 12/25/20 20:36 Carvedilol 3.125 Mg Tablet PO 3.125 mg Q12HR REHAN Administration Dextrose 12.5 gm 12/24/20 22:50 12/25/20 06:15 Dextrose 50% 25 Gm/50 Ml Syringe IV PUSH 12.5 gm PRN PRN Administration Hypoglycemia Protocol Donepezil HCl 5 mg 12/24/20 23:10 12/25/20 20:37 Donepezil Hcl 5 Mg Tablet PO 5 mg HS REHAN Administration Enalapril Maleate 5 mg 12/26/20 09:00 Enalapril Maleate 5 Mg Tablet PO QAM REHAN Furosemide 40 mg 12/25/20 09:00 12/25/20 16:59 Furosemide Inj 40 Mg/4 Ml Vial IV PUSH 40 mg BID REHAN Administration Glucagon 1 mg 12/24/20 22:50 Glucagon For Inj 1 Mg Vial
[2020-12-26 08:23] LABS: Glucose Point of Care 107 mg/dl (65-105)
[2020-12-26] MEDS: ENALAPRIL MALEATE 5 MG TABLET PO (09:03)
[2020-12-26] MEDS: PANTOPRAZOLE 40 MG TABLET PO (09:03)
[2020-12-26] MEDS: carvediloL 3.125 MG TABLET PO ×2 (09:04→20:13)
[2020-12-26] MEDS: TAMSULOSIN HCL 0.4 MG CAPSULE PO (09:04)
[2020-12-26] MEDS: FUROSEMIDE INJ 40 MG/4 ML VIAL IV PUSH ×2 (09:04→16:49)
[2020-12-26] MEDS: MAGNESIUM OXIDE 400 MG TABLET PO ×2 (09:05→16:50)
[2020-12-26] MEDS: PREGABALIN (*CRX) 75 MG CAPSULE PO ×3 (09:08→16:52)
[2020-12-26] MEDS: ASPIRIN 81 MG CHEWABLE TABLET PO (09:08)
--- NOTE | 2020-12-26 10:53 | PC.NURSE ---
Updated, granddaughterLennie, on patient condition.
--- NOTE | 2020-12-26 11:45 | PM.IMPN ---
Progress Note: A&P Assessment and Plan (1) Acute respiratory failure with hypoxia and hypercapnia: Code(s): J96.01 - Acute respiratory failure with hypoxia; J96.02 - Acute respiratory failure with hypercapnia Status: Acute Assessment and Plan: The patient is chronically on oxygen at 3 L per nasal cannula but has never had severe hypercapnia on prior ABGs. ABG on arrival showed normal compensated pH, but pCO2 was elevated at 70. Patient was placed on a BiPAP on arrival and repeat ABG this morning showed improvement of pCO2 at 65 and continued to have normal pH. I consulted pulmonology who believes his acute respiratory failure secondary to fluid overload and he was admitted for IV diuresis. Pulmonology would like further evaluation with an apnea link with only pulse oximetry data tonight since he will most likely be discharged tomorrow per cardiology Pulmonology would like for him to follow-up in the office in 1 week to have PFTs, repeat ABG, 6 minute walk study and a formal sleep study to be completed. Chest x-ray was read as mild pulmonary edema. Small pleural effusion. Cardiomegaly. Continue monitoring with diuresis (2) Systolic CHF, acute on chronic: Code(s): I50.23 - Acute on chronic systolic (congestive) heart failure Status: Acute Assessment and Plan: Chest x-ray shows small pleural effusion and cardiomegaly. The patient tells me that he has been taking his home medications. Home health has been weighing him. Continue with patient's home medications but it looks like he is on Coreg but it is showing NEEDED for heart rate control unsure if he has been taking this twice daily as recommended. Continue IV Lasix 40 mg BID Weight daily Fluid restriction 1200cc Continue monitoring intake and output. Electrolytes and renal function during diuresis (3) Acute renal insufficiency: Code(s): N28.9 - Disorder of kidney and ureter, unspecified Status: Acute Assessment and Plan: Patient's creatinine on arrival was 1.7 due to his fluid overload status. With diuresis it improved to 1.3 today. And review on prior labs it does return back down to normal after diuresis. Going to hold his metformin for now. Continue to monitor renal function daily. (4) Chronic anemia: Code(s): D64.9 - Anemia, unspecified Status: Acute Assessment and Plan: Patient is at his baseline. Hemoglobin 8.4, hematocrit 30.2% today. No signs of GI bleeding. Continue monitoring, PPI daily. (5) Atrial flutter: Code(s): I48.92 - Unspecified atrial flutter Status: Acute Assessment and Plan: Continue with Coreg. Rate controlled at this time. He is not on any anticoagulation for this. Will have SCDs in place for DVT prophylaxis during hospitalization. (6) Hypertension: Code(s): I10 - Essential (primary) hypertension Status: Acute Assessment and Plan: Blood pressure was slightly low this morning 101/76. Cardiology, Dr. Shankar, evaluated the patient and decreased his Coreg to 3.125 mg q.12 hours. Enalapril was on hold due to elevated creatinine. Will most likely restart tomorrow once creatinine improves on labs. (7) Type 2 diabetes mellitus: Code(s): E11.9 - Type 2 diabetes mellitus without complications Status: Acute Assessment and Plan: Will hold his oral pills at this time. Continue monitoring a.c. HS. Sliding scale insulin. Hypoglycemic protocol in place. Hemoglobin A1c was noted to be 6.3 on 10/25/2020. Time Spent With Patient Time with patient: 25 - 35 minutes Subjective Date/time seen:
--- NOTE | 2020-12-26 12:08 | PHAR ---
HOME MED VERIFIED = [facility] [id number] NUDEXA 10-20 1 CAP Q12HR.
[2020-12-26 12:17] LABS: Glucose Point of Care 157 mg/dl (65-105)
[2020-12-26 16:44] LABS: Glucose Point of Care 172 mg/dl (65-105)
[2020-12-26] MEDS: FERROUS SULFATE 324 MG TABLET PO (16:50)
[2020-12-26 20:10] LABS: Glucose Point of Care 176 mg/dl (65-105)
[2020-12-26] MEDS: DONEPEZIL HCL 5 MG TABLET PO (20:13)
[2020-12-26] MEDS: SENNOSIDES 8.6 MG TABLET 17.2 MG PO (20:13)
--- NOTE | 2020-12-26 23:31 | PCRCNOTE ---
pt moved from Rm 207 to 346 during sleep study on Apnea Link.
[2020-12-27] VITALS (11 sets, daily range): BP systolic 109–110; BP diastolic 59–73; PULSE 60–96; RESP 16; TEMP 36.1–37.1; O2SAT 86–98
[2020-12-27 06:29] LABS: Hematocrit 31.1 % (42.0-52.0); Hemoglobin 8.4 g/dL (14.0-18.0); Mean Corpuscular Hemoglobin 22.6 pg (26-34); Mean Corpuscular Volume 83.8 fl (80-100); Mean Platelet Volume 10.7 fl (7.4-10.4); Platelet Count Result 199 k/mm3 (150-375); Red Blood Count 3.71 M/mm3 (4.6-6.20); Red Cell Distribution Width 26.3 % (11.5-14.5)
[2020-12-27 06:43] LABS: Blood Urea Nitrogen 27 mg/dL (9-20); Calcium 8.2 mg/dL (8.4-10.2); Carbon Dioxide > 40 mmol/L (22-30); Chloride 89 mmol/L (98-107); Estimated CRCL calculation 64 ml/min; Estimated Glomerular Filt Rate > 60; Glucose 117 mg/dL (65-110); Magnesium 1.7 mg/dL (1.6-2.3); Potassium 3.4 mmol/L (3.4-5.0); Sodium 138 mmol/L (137-145)
[2020-12-27 07:56] LABS: Glucose Point of Care 109 mg/dl (65-105)
--- NOTE | 2020-12-27 08:22 | PM.PNCARD ---
Progress Note: A&P Assessment and Plan (1) CHF (congestive heart failure): Code(s): I50.9 - Heart failure, unspecified Status: Acute Assessment and Plan: Acute on chronic combined systolic and diastolic heart failure. On Lasix 40 mg IV BID. Due to hyperkalemia with Spironolactone will not continue this. Instead will add Metolazone 2.5 mg daily to keep him euvolemic. Change Lasix 40 mg PO BID as patient wants to go home today to take care of some business . Start KCl 20 meq PO BID. He will need f/u BMP and Mag in 1 week. Have him f/u with his regular senior java data architect Dr. Caban at [facility] or his group in 1 week. Have him take regularly Coreg 3.125 mg BID and on Enalapril 5 mg daily. (2) Elevated troponin: Code(s): R77.8 - Other specified abnormalities of plasma proteins Status: Acute Assessment and Plan: Slightly elevated only. Troponin peaked at .083. EKG is unremarkable. Probably related to volume overload from CHF, CKD, Anemia. (3) Atrial flutter: Code(s): I48.92 - Unspecified atrial flutter Status: Acute Assessment and Plan: Rate is controlled. Not on anticoagulation due to history of bleeding gastric ulcers. Subjective Date/time seen: 12/27/20 08:22 Denies chest pain or sob. Edema resolved. Exam Const: General: cooperative, healthy appearing and comfortable Nutritional Appearance: obese Resp: Auscultation: crackles, no rhonchi, no wheezes and diminished lung sounds Cardio: Jugular venous distension: no JVD Rate: regular rate Rhythm: abnormal rhythm Heart sounds: no murmurs Peripheral pulses: dorsalis pedis present GI: GI Palp: No abdominal tenderness and Yes Soft to palpation Neuro: General: oriented to person, oriented to place and oriented to time Extrem: Right lower extremity: no edema Left lower extremity: no edema Objective Data Vital Signs Vital Signs: Vital Signs - 24 hr 12/26/20 09:04 12/26/20 10:00 12/26/20 12:00 Temperature 98.6 F Pulse Rate 78 83 74 Respiratory Rate 12 Blood Pressure 106/64 Pulse Oximetry 92 12/26/20 14:00 12/26/20 14:38 12/26/20 16:00 Temperature 98.9 F Pulse Rate 67 68 Respiratory Rate 12 Blood Pressure 104/54 L Pulse Oximetry 92 100 12/26/20 18:00 12/26/20 20:00 12/26/20 20:13 Temperature Pulse Rate 73 64 79 Respiratory Rate Blood Pressure Pulse Oximetry 97 12/26/20 20:19 12/26/20 23:42 12/27/20 00:00 Temperature 97.8 F 97.0 F L Pulse Rate 68 63 Respiratory Rate 20 16 Blood Pressure 107/46 L 109/59 L Pulse Oximetry 97 96 94 12/27/20 04:00 Temperature Pulse Rate 60 Respiratory Rate Blood Pressure Pulse Oximetry Intake/Output Intake/Output: Intake & Output 12/24/20 12/25/20 12/26/20 12/27/20 23:59 23:59 23:59 23:59 Intake Total 1020 920 240 Output Total 2150 2590 1000 Balance -1130 -1670 -760 Meds/Results Medications: Active Medications Generic Name Dose Route Start Last Admin Trade Name Freq PRN Reason Stop Dose Admin Aspirin 81 mg 12/25/20 08:00 12/26/20 09:08 Aspirin 81 Mg Chewable Tablet PO 81 mg DAILY@0800 REAHN Administration Carvedilol 3.125 mg 12/25/20 21:00 12/26/20 20:13 Carvedilol 3.125 Mg Tablet PO 3.125 mg Q12HR REHAN Administration Dextrose 12.5 gm 12/24/20 22:50 12/25/20 06:15 Dextrose 50% 25 Gm/50 Ml Syringe IV PUSH 12.5 gm PRN PRN Administration Hypoglycemia Protocol Donepezil HCl 5 mg 12/24/20 23:10 12/26/20 20:13 Donepezil Hcl 5 Mg Tablet PO 5 mg HS REHAN Administration Enalapril Maleate 5 mg 12/26/20 09:00 12/26/20 09:03 Enalapril Maleate 5 Mg Tablet PO 5 mg QAM REHAN Administration Ferrous Sulfate 324 mg 12/26/20 17:00 12/26/20 16:50 Ferrous Sulfate 324 Mg Tablet PO 324 mg BIDWM REHAN Administration Furosemide 40 mg 12/25/20 09:00 12/26/20 16:49 Furosemide Inj 40 Mg/4 Ml Vial IV PUSH 40 mg BID REHAN Administration Gluca
[2020-12-27] MEDS: PANTOPRAZOLE 40 MG TABLET PO (10:07)
[2020-12-27] MEDS: ENALAPRIL MALEATE 5 MG TABLET PO (10:07)
[2020-12-27] MEDS: ASPIRIN 81 MG CHEWABLE TABLET PO (10:07)
[2020-12-27] MEDS: FERROUS SULFATE 324 MG TABLET PO (10:07)
[2020-12-27] MEDS: MAGNESIUM OXIDE 400 MG TABLET PO (10:07)
[2020-12-27] MEDS: TAMSULOSIN HCL 0.4 MG CAPSULE PO (10:08)
[2020-12-27] MEDS: carvediloL 3.125 MG TABLET PO (10:08)
[2020-12-27] MEDS: metOLazone 2.5 MG TABLET PO (10:08)
[2020-12-27] MEDS: FUROSEMIDE INJ 40 MG/4 ML VIAL IV PUSH (10:08)
[2020-12-27] MEDS: PREGABALIN (*CRX) 75 MG CAPSULE PO ×2 (10:12→13:56)
[2020-12-27] MEDS: POTASSIUM CHLORIDE 20 MEQ TABLET.ER PO (11:03)
[2020-12-27 12:07] LABS: Glucose Point of Care 155 mg/dl (65-105)
--- NOTE | 2020-12-27 15:03 | PM.DS ---
DS: Admitting Diagnosis Discharge Date 12/27/20 Admitting Diagnosis SOB DS: Discharge Diagnosis Discharge Diagnosis (1) Acute respiratory failure with hypoxia and hypercapnia: Code(s): J96.01 - Acute respiratory failure with hypoxia; J96.02 - Acute respiratory failure with hypercapnia Status: Acute Assessment and Plan: The patient is an 80 year old man with a history of chronic respiratory failure on 3L /, mild systolic and diastolic CHF, chronic anemia, parox afib not on anticoagulation, who presented to the ER with symptoms of increased SOB which started a few days prior to arrival along with 5 L weight gain. Found to be hypoxic by home health nurses and brought to the ER for further evaluation. Initial vitals showed stable blood pressure 122/73, heart rate 91 beats per minute, afebrile, oxygenation 98% on 4 L via nasal cannula. Initial labs showed normal white blood cell count, normocytic anemia with a hemoglobin 8.8 which appears to be at his baseline. Normal coag panel. ABG showed normal pH with an elevated CO2 of 71.9, elevated HCO3 42.7 on 3L via NC. Elevated creatinine at 1.7, BUN 48. Greater than 40 on serum bicarb. Elevated potassium at 5.3. Troponins were elevated and flat. BNP was 8420. Urinalysis showed hyaline casts but no signs of infection. Chest x-ray showed mild pulmonary edema, cardiomegaly. Small pleural effusions. The patient was admitted into the hospital for CHF exacerbation in started on IV diuretics and was placed on a continuous BiPAP due to his elevated CO2 levels. Patient's strand galvanizer Dr. Shankar was consulted and made some adjustments to his home regimen. He diuresed well during his hospitalization. --Discharged on Lasix 40 mg BID, Metolazone 2.5 mg, Potassium 20 meq BID, Coreg 3.125 mg BID and Enalapril 5 mg daily --Discussed weights daily, heart healthy diet, monitoring fluid intake and follow up in 1 week. He understands and agrees with the plan. All questions answered. The patient is chronically on oxygen at 3 L per nasal cannula but has never had severe hypercapnia on prior ABGs. ABG on arrival showed normal compensated pH, but pCO2 was elevated at 70. Patient was placed on a BiPAP on arrival and repeat ABG this morning showed improvement of pCO2 at 65 and continued to have normal pH. Since he had a normal pH BiPAP was discontinued. I consulted pulmonology who believes his acute respiratory failure secondary to fluid overload and he was admitted for IV diuresis. Pulmonology would like further evaluation with an apnea link with only pulse oximetry data which was completed showing KAREN 15.7. Pulmonology would like for him to follow-up in the office in 1 week to have PFTs, repeat ABG, 6 minute walk study and a formal sleep study to be completed. Home Oxygen evaluation completed showing 3L at rest and with exertion (2) Systolic CHF, acute on chronic: Code(s): I50.23 - Acute on chronic systolic (congestive) heart failure Status: Acute Assessment and Plan: (3) Acute renal insufficiency: Code(s): N28.9 - Disorder of kidney and ureter, unspecified Status: Acute Assessment and Plan: Improved with diuresis (4) Chronic anemia: Code(s): D64.9 - Anemia, unspecified Status: Acute Assessment and Plan: Patient is at his baseline. H&H stable. (5) Atrial flutter: Code(s): I48.92 - Unspecified atrial flutter Status: Acute Assessment and Plan: Continue with Coreg. Rate controlled at this time. (6) Hypertension: Code(s): I10 - Essential (primary) hypertension Status: Acute Assessment and Plan: Blood pressure was slightly low this morning 110/73. ___
--- NOTE | 2020-12-27 16:06 | HOMEO2EVAL ---
Evaluation was performed at [facility] Home Oxygen Evaluation RC: Home Oxygen (O2) Evaluation Start: 12/27/20 14:28 Freq: ONCE Status: Active Protocol: RPE Activity Type Activity Date Activity User E-Sign Co-Sign Detail Recorded Client Recorded Date Recorded By Document 12/27/20 15:30 ANNELIESE [email or web address] 12/27/20 15:56 ANNELIESE Document 12/27/20 15:31 ANNELIESE [email or web address] 12/27/20 15:56 ANNELIESE Document 12/27/20 15:32 ANNELIESE [email or web address] 12/27/20 15:56 ANNELIESE Document 12/27/20 15:33 ANNELIESE [email or web address] 12/27/20 15:56 ANNELIESE Document 12/27/20 15:45 ANNELIESE [email or web address] 12/27/20 15:56 ANNELIESE 12/27/20 12/27/20 12/27/20 15:30 15:31 15:32 Home O2 Evaluation Test Phase Resting Resting Resting Oxygen Delivery Room Air Nasal Cannula Nasal Cannula Oxygen Flow Rate (L/min) 2 3 Pulse Oximetry (90-100 %) 86 L 88 L 93 Pulse Rate (60-100 beats/min) 88 Home Oxygen Evaluation Comments Treatment Charges O2 Evaluation - Inpatient 12/27/20 12/27/20 15:33 15:45 Home O2 Evaluation Test Phase Exercise Resting Oxygen Delivery Nasal Cannula Nasal Cannula Oxygen Flow Rate (L/min) 3 3 Pulse Oximetry (90-100 %) 91 93 Pulse Rate (60-100 beats/min) 96 90 Home Oxygen Evaluation Comments PT REQUIRES 3 L AT REST AND WITH EXERTION Treatment Charges
--- NOTE | 2020-12-27 16:07 | PCRCNOTE ---
HOME O2 EVAL DONE, NO CHANGES FROM PREVIOUS O2 NEEDS, 3L AT REST AND WITH EXERTION. GRANDDAUGHTER WILL BRING IN PORTABLE O2 TANK WHEN SHE PICKS HIM UP AT D/C. SHE IS PRETTY SURE [facility] IS PT DME. I WILL FAX OVER EVAL TO INFORM THEM OF HIS RECENT STAY.
[2020-12-27 16:48] LABS: Glucose Point of Care 131 mg/dl (65-105)
== END 2020-12-27 17:42 | disposition home health service (06) | DRG 291 ==
LOC: ANHED 17:26 → ANHIMU 19:50 → ANH3MED 12-27 01:33 → ANHIMU 12-28 13:56
PROVIDERS: Internal Medicine Cardiovascular Disease; Nurse Practitioner; Physician Assistant; Admitting Provider Internal Medicine; Emergency Provider Emergency Medicine; PCP Internal Medicine; Visit Provider Internal Medicine
DX: I11.0 Hypertensive heart disease with heart failure (principal); J96.21 Acute and chronic respiratory failure with hypoxia; I50.43 Acute on chronic combined systolic (congestive) and diastolic (congestive) heart failure; J96.02 Acute respiratory failure with hypercapnia; I48.92 Unspecified atrial flutter; I27.20 Pulmonary hypertension, unspecified; Z99.81 Dependence on supplemental oxygen; E11.9 Type 2 diabetes mellitus without complications; E87.5 Hyperkalemia; R77.8 Other specified abnormalities of plasma proteins; N28.9 Disorder of kidney and ureter, unspecified; N40.1 Benign prostatic hyperplasia with lower urinary tract symptoms; R33.8 Other retention of urine; G47.10 Hypersomnia, unspecified; D50.9 Iron deficiency anemia, unspecified; G89.4 Chronic pain syndrome; Z96.89 Presence of other specified functional implants; I25.10 Atherosclerotic heart disease of native coronary artery without angina pectoris; I25.2 Old myocardial infarction; K21.9 Gastro-esophageal reflux disease without esophagitis; Z79.84 Long term (current) use of oral hypoglycemic drugs; Z79.899 Other long term (current) drug therapy; Z86.73 Personal history of transient ischemic attack (TIA), and cerebral infarction without residual deficits; Z87.891 Personal history of nicotine dependence; Z98.42 Cataract extraction status, left eye; Z98.41 Cataract extraction status, right eye; Z87.11 Personal history of peptic ulcer disease; Z95.5 Presence of coronary angioplasty implant and graft
CPT/HCPCS: 36415; 36600; 71045; 80048; 80053; 81001; 82375; 82805; 82948; 83050; 83605; 83615; 83735; 83880; 84443; 84484; 85025; 85027; 85055; 85610; 85730; 93005; 94002; 94003; 94618; 96374; 96375; 96376; 97110; 97161; 97165; 97530; 97535; 99291; A9270; G0378; J1940

== ENCOUNTER 2021-02-15 13:40 | Inpatient (IN) | payer MEDICARE, MEDICAID, SELFPAY ==
[2021-02-15] VITALS (28 sets, daily range): BP systolic 70–145; BP diastolic 53–124; PULSE 68–107; RESP 10–24; TEMP 36–37; O2SAT 92–99
--- NOTE | ~2021-02-15 | US_ITS ---
EXAMINATION: US venous doppler UE DATE: 02/18/2021 12:41 INDICATION: Left upper limb swelling TECHNIQUE: Grayscale images without and with compression and Doppler images of the left upper extremi ty veins were obtained. COMPARISON: None. FINDINGS: The left internal jugular vein, subclavian vein, axillary vein, brachial vein, basilic vein, cephalic vein, radial vein, and ulnar vein are patent. IMPRESSION: 1. Patent left upper extremity veins. No evidence of venous thrombosis. Reviewed, dictated and finalized at location B. OPERATOR
--- NOTE | ~2021-02-15 | CT_ITS ---
EXAMINATION: CT brain wo con, CT cervical spine wo con EXAM DATE: 02/15/2021 15:14 INDICATION: Fall, confusion. TECHNIQUE: Spiral CT of the head was performed without contrast. Axial, coronal and sagittal images were reviewed. Spiral CT of the cervical spine was performed without contrast. Axial images were rev iewed. Coronal and sagittal reformatted images were also reviewed. The dose-length product (DLP) fo r this examination was 681.00 (accession [id number]), 850.07 (accession [id number]) mGy-cm. The exposure was tailored according to patient size, and iterative reconstruction (ASIR) was used as additional dose reduction technique. There is no prior study for comparison. FINDINGS: HEAD CT: Small extra-axial partially calcified mass along the falx anteriorly measuring 1.2 cm, a men ingioma. There is no acute intraparenchymal hemorrhage. No evidence of intraparenchymal brain mass l esion. No evidence of acute infarction. There is mild to moderate periventricular and subcortical hy podensity, nonspecific but probably related to small vessel ischemic disease. There is moderate pro minence of the sulci and ventricles related to cerebral atrophy. Old small right occipital lobe infar ction. There is no mass effect or midline shift. There is no obstructive hydrocephalus suspected. There are no extra-axial collections. There are no acute calvarial fractures. The orbits are unrema rkable. There may be small left scalp contusion. Mild mucoperiosteal thickening. Mastoid air cells a re well aerated. CERVICAL CT: Mild limitations from motion. There is no evidence of acute cervical fracture. The odon toid process is intact. Pre-dens space is normal. Prevertebral soft tissue is normal. There are no soft tissue abnormalities identified. There is no disc space widening or traumatic vertebral body s ubluxation suspected. Overall moderate cervical spondylosis. A detailed level by level evaluation o f spondylosis can be added as addendum if requested. IMPRESSION: 1. No acute intracranial findings or cervical fracture. 2. Old small right occipital lobe infarction. 3. Small meningioma. 4. Mild periosteal thickening. 5. Probable small left scalp contusion. 6. Cervical spondylosis. Reviewed, dictated and finalized at location B. H PIECER IMPRESSION: 1. No acute intracranial findings or cervical fracture. 2. Old small right occipital lobe infarction. 3. Small meningioma. 4. Mild periosteal thickening. 5. Probable small left scalp contusion. 6. Cervical spondylosis.
--- NOTE | ~2021-02-15 | XR_ITS ---
EXAMINATION: XR chest 1V portable EXAM DATE: 02/15/2021 15:09 INDICATION: Confusion, fall. TECHNIQUE: Portable AP frontal chest x-ray was obtained. Comparison is made to prior examination from 12/24/2020. FINDINGS: The lungs are clear. There are no pleural effusions. Scattered bibasilar subsegmental ate lectasis or pneumonia. Mild cardiomegaly. There is no pneumothorax suspected. The bones and soft tis sues are unremarkable. IMPRESSION: Cardiomegaly. Bibasilar subsegmental atelectasis or pneumonia. Reviewed, dictated and finalized at location B. ET PUNCH OPERATOR
--- NOTE | ~2021-02-15 | US_ITS ---
EXAMINATION: US carotid duplex BI DATE: 02/16/2021 08:22 INDICATION: Right occipital lobe infarct. TECHNIQUE: Grayscale, color Doppler, and pulsed Doppler images of the cervical carotid arteries were obtained. The degree of vessel stenosis is placed in one of the following categories: normal, <50%, 5 0-69%, >=70% but less than near-occlusion, near-occlusion, or total occlusion. Note that percent sten osis relative to normal distal artery lumen diameter is indirectly measured from velocity measurement s as described by Hernan, et al. Radiology 2003; 229:340-346. COMPARISON: None. FINDINGS: RIGHT: The right common carotid artery (CCA) peak systolic velocity (PSV) is 78 cm/s. The right internal car otid artery (ICA) PSV is 77 cm/s. The right ICA end-diastolic velocity (EDV) is 15 cm/s. The right IC A/CCA PSV ratio is 1.0. Grayscale and color Doppler images yield an estimate of <50% diameter reducti on from plaque in the ICA. There is antegrade flow in the right vertebral artery. LEFT: The left CCA PSV is 83 cm/s. The left ICA PSV is 69 cm/s. The left ICA EDV is 10 cm/s. The left ICA/C CA PSV ratio is 1.2. Grayscale and color Doppler images yield an estimate of <50% diameter reduction from plaque in the ICA. There is antegrade flow in the left vertebral artery. IMPRESSION: 1. <50% stenosis in the right internal carotid artery. 2. <50% stenosis in the left internal carotid artery. Reviewed, dictated and finalized at location A. NCE BUSINESS MANAGER
--- NOTE | 2021-02-15 14:05 | ECG_ITS ---
Measurements Intervals [place] Rate: 86 P: OR: 0 QRS: 103 QRSD: 100 T: 25 QT: 408 QTc: 490 Interpretive Statements ATRIAL FIBRILLATION VENTRICULAR PREMATURE COMPLEXES RIGHT AXIS DEVIATION LOW QRS VOLTAGE IN LIMB LEADS CANNOT RULE OUT SEPTAL INFARCT, AGE INDETERMINATE BORDERLINE ST-T WAVE ABNORMALITY- INFERIOR LEADS BASELINE ARTIFACT- I, II, III, AVR, AVL, AVF, V1-V6 ABNORMAL ECG Electronically Signed On 02-15-2021 14:08:56 CLINICAL RESEARCH COORDINATOR by Waqas Shankar D.O.
[2021-02-15] MEDS: SODIUM CHLORIDE 0.9% IV 1,000 ML 1000 ML (14:13)
[2021-02-15 14:43] LABS: INR 1.1; Prothrombin Time 14.5 Seconds (11.1-14.7)
[2021-02-15 14:44] LABS: Partial Thromboplastin Time 35.9 SECONDS (22.3-36.8)
[2021-02-15 14:45] LABS: Alveolar/Arterial O2 Gradient 115.6 mmHg; Base Excess ABG 3.2 mEq/l (+/-2.0); Carboxyhemoglobin 1.2 % THb (0-2.0); Fractional Inspired Oxygen 32 %; HCO3 ABG 28.3 mEq/l (22.0-26.0); Methemoglobin ABG 0.2 %THb (0-1.5); Oxygen Content ABG 11.1 %vol (16.0-22.0); Oxygen Saturation ABG 90.9 % (95.0-100.0); PCO2 ABG 45.4 mmHg (35.0-45.0); PO2 ABG 59.4 mmHg (80.0-100.0); PO2 FiO2 Ratio Arterial Blood 1.86 %; Reduced Hemoglobin 12.9 %THb (0-5.0); Total Hemoglobin 9.2 g/dL (12.0-18.0); pH ABG 7.412 (7.350-7.450)
[2021-02-15 14:45] LABS: Alanine Aminotransferase 21 U/L (4-50); Albumin Level 3.7 g/dL (3.5-5.1); Alkaline Phosphatase 101 U/L (38-126); Anion Gap 10 mmol/L (8-16); Aspartate Amino Transferase 41 U/L (17-59); Bilirubin,Total 1.2 mg/dL (0.2-1.3); Blood Urea Nitrogen 26 mg/dL (9-20); Calcium 8.5 mg/dL (8.4-10.2); Carbon Dioxide 29 mmol/L (22-30); Chloride 91 mmol/L (98-107); Estimated CRCL calculation 65 ml/min; Estimated Glomerular Filt Rate > 60; Glucose 108 mg/dL (65-110); Potassium 4.3 mmol/L (3.4-5.0); Sodium 130 mmol/L (137-145)
[2021-02-15 14:46] LABS: Device NASAL CANNULA; Modified Allen's Test Pass; Oxyhemoglobin 85.7 % THb (90.0-100.0); Site Drawn RIGHT RADIAL
[2021-02-15 14:47] LABS: Basophils Percent Auto 0.2 % (0.2-1.2); Eosinophils Percent Auto 0.3 % (0-4.4); Hematocrit 30.2 % (42.0-52.0); Hemoglobin 8.7 g/dL (14.0-18.0); Immature Granulocyte Absolute 0.09 K/mm3 (0.00-0.031); Immature Granulocyte Percent A 0.7 % (0-0.5); Immature Platelet Fraction Pct 6.8 % (0.9-11.2); Lymphocytes Absolute Auto 0.43 K/mm3 (0.9-3.2); Lymphocytes Percent Auto 3.3 % (18.3-44.2); Mean Corpuscular HGB Conc 28.8 g/dl (32-36); Mean Corpuscular Hemoglobin 23.1 pg (26-34); Mean Corpuscular Volume 80.1 fl (80-100); Mean Platelet Volume 10.8 fl (7.4-10.4); Monocytes Absolute Auto 1.4 K/mm3 (0.1-0.6); Monocytes Percent Auto 10.7 % (2.6-8.5); Neutrophils Absolute Auto 10.9 K/mm3 (1.3-6.7); Neutrophils Percent Auto 84.8 % (45.5-73.1); Platelet Count Result 165 k/mm3 (150-375); Red Blood Count 3.77 M/mm3 (4.6-6.20); Red Cell Distribution Width 21.2 % (11.5-14.5); White Blood Count 12.9 K/mm3 (4.5-10.0)
[2021-02-15 15:07] LABS: Add Urine Microscopic? YES; Appearance Urine Clear (Clear); Bilirubin Urine Negative (Negative); Blood Urine Negative (Negative); Color Urine Yellow (Yellow); Glucose Urine UA Negative (Negative); Ketones Urine 1+ mg/dL (Negative); Leukocyte Esterase Ur Negative LEU/UL (Negative); Mucus Urine Rare /lpf; Nitrate Urine Negative (Negative); Protein Urine Negative (Negative); RBC Urine 0-2 /hpf (0-2); Specific Grav Ur 1.013 (1.001-1.035); Urobilinogen Urine Negative mg/dL (<2.0); WBC Urine 0-3 /hpf
--- NOTE | 2021-02-15 15:14 | ED.AMS ---
HPI - Altered Mental Status General Chief Complaint: Altered Mental Status Stated Complaint: fall Time Seen by Provider: 02/15/21 14:13 Source: patient, family (granddaughter) and EMS Mode of arrival: EMS Limitations: altered mental status History of Present Illness HPI narrative: This an 80 year old Caucaucian male with history of Chronic respiratory failure, home oxygen 3 L NC, CHF, DM who presents for evaluation of fall and altered mental status. Patient's granddaughter is at bedside to provide history. She reports she last spoke to patient at 2 am this morning. This afternoon she went to patient's home to give him lunch and she found him on the floor confused. Patient is stating he was on the floor for 2 hours. His granddaughter is unsure how long he was on the ground. She states patient was recently discharged from [facility] for treatment of CHF, hyperkalemia and confusion. His metolazone and potassium were discontinued. She states today patient is confused as if his CO2 may be high. Related Data Home Medications Medication Instructions Recorded Confirmed Nuedexta See Rx Instructions .ROUTE .COMPLEX 10/24/20 02/15/21 glipizide 2.5 mg PO DAILY 10/24/20 02/15/21 metformin 1,000 mg PO BID PRN 10/24/20 02/15/21 pantoprazole 40 mg PO DAILY 10/24/20 02/15/21 pregabalin 75 mg PO TID 10/24/20 02/15/21 tamsulosin 0.4 mg PO DAILY 10/24/20 02/15/21 ferrous sulfate 4 ml PO DAILY 12/11/20 02/15/21 Allergies Allergy/AdvReac Type Severity Reaction Status Date / Time No Known Allergies Allergy Verified 12/24/20 16:57 Review of Systems Review of Systems: ROS unobtainable: Yes unobtainable due to mental status PMFSH Past Medical History Medical History Anemia Arthritis Benign prostatic hyperplasia Cerebrovascular accident 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 Chronic anemia Chronic pain Patient had a pain pump inserted in February 2019. Chronic respiratory failure with hypoxia, on home oxygen therapy Baseline oxygen requirement is 3 L nasal cannula. Congestive heart failure Echocardiogram on 10/25/2020 showed preserved LV systolic function with an estimated EF of 50 to 55% and abnormal diastolic function. With repeat limited echocardiogram 11/2020 demonstrated EF of 40 45% and abnormal diastolic function. Coronary artery disease Gastroesophageal reflux disease History of bleeding peptic ulcer Hypertension Iron deficiency anemia Receives frequent iron infusions. Moderate pulmonary hypertension Estimated pulmonary arterial systolic pressure was 54 mmHg on echocardiogram dated 10/25/2020. Paroxysmal atrial fibrillation Pseudobulbar affect Spinal stenosis Type 2 diabetes mellitus Hemoglobin A1c was 6.3% on 10/25/2020. Surgical History Surgical History History of bilateral cataract extraction History of hernia repair Family History Family History Father Acute myocardial infarction Sibling Acute myocardial infarction Brain aneurysm Other No problems noted. Mother Breast cancer Social History Social History Social History: The patient tells me that he only has 1 child. He is retired from the [employer]. He is a former smoker. No alcohol marijuana or illicit drugs. Healthcare power of employment law attorney: Lennie Cruz, granddaughter. Code status: Full code. Smoking packs per day: 3 Smoking cigarettes per day: 60.0 Years smoked: 40 Smoking pack-years: 120.00 Smoking status: Former smoker Alcohol intake: never Substance use: never Substance use type: does not use Additional living arrangements comments: The patient lives in his own home in [place]. He ambulates with a walker but uses a wheelchair when outside of the
[2021-02-15 15:48] LABS: Anisocytosis 1+ (NORMAL); Platelet Estimate Adequate (Adequate); Poikilocytosis 1+ (NORMAL)
[2021-02-15 15:49] LABS: Hypochromasia 1+ (NORMAL); Ovalocytes 2+ (NORMAL)
[2021-02-15] MEDS: NALOXONE HCL 0.4 MG/ML VIAL IV PUSH (16:07)
[2021-02-15 16:31] LABS: NT Pro B Type Natriuretic Pept 5640 pg/mL (5-100)
[2021-02-15] MEDS: PIPERACILLIN/TAZOBACTAM SOD 4.5 GM in SODIUM CHLORIDE 0.9% IV 100 ML 200 ML IVPB (18:03)
[2021-02-15 21:33] LABS: Glucose Point of Care 77 mg/dl (65-105)
[2021-02-16] VITALS (13 sets, daily range): BP systolic 105–120; BP diastolic 52–56; PULSE 68–85; RESP 16–21; TEMP 36.3–36.7; O2SAT 93–100
--- NOTE | 2021-02-16 | ECHO_ITS ---
Patient Info Name: Zack Orellana Age: 80 years : 1940 Gender: Male Ht: 70 in Wt: 199 lbs BSA: 2.13 m2 HR: 78 bpm BP: 122 / 55 mmHg Heart Rhythm: Atrial Flutter Technical Quality: Fair Exam Date: 02/16/2021 12:47 PM Exam Location: [facility] Room: 244 Patient Status: Inpatient Admit Date: 02/16/2021 Staff Ordering Physician: Kerry Castillo NP Plant Operations Manager: Rochelle Chamberlain RDCS Attending Provider: Laverne Grey PA-C Referring Physician: Jonathan KITCHEN; Exam Type: CA echo doppler color flow Study Info Indications - s/p fall ams confusion Complete two-dimensional, color flow and Doppler transthoracic echocardiogram is performed. Summary 1. Complete two-dimensional, color flow and Doppler transthoracic echocardiogram is performed. 2. Left ventricular chamber dimension is normal. 3. Left ventricular systolic function is normal, estimated at 55-60%. 4. There is no increased left ventricular wall thickness. 5. Left ventricular septal wall motion is abnormal with septal motion related to bundle branch block. 6. The left ventricular diastolic function is grade II diastolic dysfunction. 7. Left atrial chamber dimension is moderately enlarged. 8. Right atrial chamber dimension is severely enlarged. 9. There is mild tricuspid valve regurgitation. 10. Severe pulmonary hypertension, estimated pulmonary arterial systolic pressure is 74 mmHg. Left Ventricle Left ventricular chamber dimension is normal. Left ventricular systolic function is normal, estimated at 55-60%. There is no increased left ventricular wall thickness. Left ventricular septal wall motion is abnormal with septal motion related to bundle branch block. The left ventricular diastolic function is grade II diastolic dysfunction. Right Ventricle Right ventricular chamber dimension is normal. Right ventricular systolic function is normal. Left Atria Left atrial chamber dimension is moderately enlarged. Right Atria Right atrial chamber dimension is severely enlarged. Aortic Valve The aortic valve is not well visualized. There is mild aortic valve sclerosis. There is no aortic valve stenosis. There is no aortic valve regurgitation. Pulmonic Valve The pulmonic valve is not well visualized. Mitral Valve The mitral valve has thickened leaflets. There is trace mitral valve regurgitation. The mitral valve annulus is moderately calcified. Tricuspid Valve The tricuspid valve leaflets are normal. There is mild tricuspid valve regurgitation. Severe pulmonary hypertension, estimated pulmonary arterial systolic pressure is 74 mmHg. Pericardium/Pleural The pericardium appears normal. There is no pericardial effusion. Inferior Vena Cava Normal inferior vena cava with no collapse upon inspiration consistent with significantly elevated right atrial pressure, 15 mmHg. Aorta The aortic root size at the sinus of Valsalva is normal. Left Ventricular Outflow Tract Name Value Normal LVOT 2D LVOT Diameter 2.1 cm LVOT Doppler LVOT Peak Gradient 6 mmHg LVOT Mean Gradient
--- NOTE | 2021-02-16 00:01 | PM.IMHP ---
H&P: HPI History of Present Illness Date/Time: 02/15/21 [id number] this is an 80-year-old male patient with a history of chronic respiratory failure knees on home oxygen at 3 L per nasal cannula. The patient has been coughing but no fever chills. The patient fell at home and had altered mental status. His granddaughter was providing the information at the bedside when he was in the emergency room. The last time that she spoke to him was 2:00 a.m. this morning. Today the granddaughter went to the patient's house to give him lunch and she found him on the floor confused. The patient told her that he had been on the floor for 2 hours. She was unsure of how long he had been there. The patient was recently discharged from [facility] for the treatment of CHF, hyperkalemia and confusion. His metolazone and potassium were discontinued. Chest x-ray was read as cardiomegaly bibasilar subsegmental atelectasis or pneumonia. Head CT was read as 1. No acute intracranial findings or cervical fracture. 2. Old small right occipital lobe infarction. 3. Small meningioma. 4. Mild periosteal thickening. 5. Probable small left scalp contusion. 6. Cervical spondylosis. H&H is 8.7 and 30.2 which appears to be his baseline. White count is 12.9. Sodium is 130. BNP 5640. The patient was started on Zosyn and IV fluids. He was also given Narcan in the emergency room.The patient was admitted for observation of the dos 02/15/21. Chief Complaint: confused Review of Systems Review of Systems: All systems reviewed & are unremarkable except as noted in HPI and below Constitutional: Constitutional: Reports as per HPI and Reports no additional constitutional complaints Eyes: Eyes: Reports as per HPI and Reports no additional eye complaints ENT: Reports system reviewed and no additional complaints, except as documented and Reports Normal hearing present Cardiovascular: Cardiovascular: Reports no additional cardiovascular complaints Respiratory: Respiratory: Reports no additional respiratory complaints and Reports no additional respiratory complaints Gastrointestinal: Gastrointestinal: Reports as per HPI and Reports no additional gastrointestinal complaints Musculoskeletal: Musculoskeletal: Reports no additional musculoskeletal complaints Integumentary/Breasts: Skin/Breast: Reports system reviewed and no additional complaints, except as docu and Reports as per HPI Neurologic: Reports system reviewed and no additional complaints, except as documented, Reports as per HPI and Reports Normal hearing present Psychiatric: Psychiatric: Reports no additional psychiatric complaints and Reports as per HPI Endocrine: Endocrine: Reports no additional endocrine complaints Hematologic/Lymphatic: Hematologic/Lymphatic: Reports no additional hematologic/lymphatic complaints Allergic/Immunologic: Allergic/Immunologic: Reports no additional allergic/immunologic complaints [facility] Past Medical History Medical History Anemia Arthritis Benign prostatic hyperplasia Cerebrovascular accident 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 Chronic anemia Chronic pain Patient had a pain pump inserted in February 2019. Chronic respiratory failure with hypoxia, on home oxygen therapy Baseline oxygen requirement is 3 L nasal cannula. Congestive heart failure Echocardiogram on 10/25/2020 showed preserved LV systolic function with an estimated EF of 50 to 55% and abnormal diastolic function. With repeat limited echocardiogram 11/2020 demonstrated EF of 40 45% and abnormal diastolic function. Coronary artery disease Gastroesophageal reflux disease History of bleeding peptic ulcer Hypertension Iron deficiency anemia Receives frequent iron infusions. Moderate pulmonary hypertension Estimated pulmonary arterial systolic pressure was 54 mmHg on echocardiogram dated 10/25/2020. Paroxysma
[2021-02-16] MEDS: PIPERACILLIN/TAZOBACTAM SOD 4.5 GM in SODIUM CHLORIDE 0.9% IV 100 ML 200 ML IVPB ×4 (00:15→17:02)
[2021-02-16 07:06] LABS: Basophils Percent Auto 0.3 % (0.2-1.2); Eosinophils Absolute Auto 0.3 K/mm3 (0-0.3); Hematocrit 28.4 % (42.0-52.0); Hemoglobin 8.3 g/dL (14.0-18.0); Immature Granulocyte Absolute 0.05 K/mm3 (0.00-0.031); Immature Granulocyte Percent A 0.5 % (0-0.5); Lymphocytes Percent Auto 2.8 % (18.3-44.2); Mean Corpuscular HGB Conc 29.2 g/dl (32-36); Mean Corpuscular Hemoglobin 24.3 pg (26-34); Mean Platelet Volume 11.7 fl (7.4-10.4); Monocytes Percent Auto 9.7 % (2.6-8.5); Neutrophils Percent Auto 83.7 % (45.5-73.1); Platelet Count Result 167 k/mm3 (150-375); Red Blood Count 3.42 M/mm3 (4.6-6.20); Red Cell Distribution Width 20.9 % (11.5-14.5); White Blood Count 10.7 K/mm3 (4.5-10.0)
[2021-02-16 07:14] LABS: Alanine Aminotransferase 19 U/L (4-50); Alkaline Phosphatase 90 U/L (38-126); Anion Gap 10 mmol/L (8-16); Aspartate Amino Transferase 38 U/L (17-59); Blood Urea Nitrogen 17 mg/dL (9-20); Calcium 8.2 mg/dL (8.4-10.2); Carbon Dioxide 28 mmol/L (22-30); Chloride 97 mmol/L (98-107); Creatine Kinase 148 U/L (55-170); Estimated CRCL calculation 65 ml/min; Estimated Glomerular Filt Rate > 60; Glucose 56 mg/dL (65-110); Potassium 3.7 mmol/L (3.4-5.0); Sodium 135 mmol/L (137-145)
[2021-02-16 07:22] LABS: Glucose Point of Care 64 mg/dl (65-105)
[2021-02-16] MEDS: DEXTROSE 50% 25 GM/50 ML SYRINGE IV PUSH (07:29)
[2021-02-16 08:17] LABS: Glucose Point of Care 131 mg/dl (65-105)
[2021-02-16] MEDS: PREGABALIN (*CRX) 75 MG CAPSULE PO ×3 (09:16→17:03)
[2021-02-16] MEDS: FUROSEMIDE 40 MG TABLET PO ×2 (09:17→17:02)
[2021-02-16] MEDS: ASPIRIN 81 MG CHEWABLE TABLET PO (09:17)
[2021-02-16] MEDS: ENALAPRIL MALEATE 5 MG TABLET PO (09:17)
[2021-02-16] MEDS: MAGNESIUM OXIDE 400 MG TABLET PO ×2 (09:17→17:03)
[2021-02-16] MEDS: TAMSULOSIN HCL 0.4 MG CAPSULE PO (09:17)
[2021-02-16] MEDS: PANTOPRAZOLE 40 MG TABLET PO (09:17)
[2021-02-16] MEDS: carvediloL 3.125 MG TABLET PO ×2 (09:18→20:50)
[2021-02-16] MEDS: glipiZIDE XL 2.5 MG TAB.ER.24 PO (09:18)
[2021-02-16 11:50] LABS: Glucose Point of Care 135 mg/dl (65-105)
[2021-02-16] MEDS: NEOMYCIN/POLYMYXIN/BACITRACIN OINTMENT 15 GM TUBE 1 APPLIC TOPICAL (14:04)
[2021-02-16 16:56] LABS: Glucose Point of Care 155 mg/dl (65-105)
--- NOTE | 2021-02-16 18:35 | PM.IMPN ---
Progress Note: A&P Assessment and Plan (1) CAP (community acquired pneumonia): Code(s): J18.9 - Pneumonia, unspecified organism Status: Acute Assessment and Plan: Patient was started on Zosyn. Blood and sputum cultures are pending. The patient has mild leukocytosis. The patient has no fever but has a cough. Patient was recently discharged from [facility] I am not sure if he was checked for COVID at that time. Unsure if he is vaccinated and pt is a poor historian. Will check inflammatory markers, consider covid testing. (2) CHF (congestive heart failure): Code(s): I50.9 - Heart failure, unspecified Status: Acute Assessment and Plan: Continue with Coreg, enalapril, and Lasix (3) Acute metabolic encephalopathy: Code(s): G93.41 - Metabolic encephalopathy Status: Acute Assessment and Plan: Could be related to infectious process. The patient was found on the ground approximately 2 hours. Possibly more. -Carotid doppler negative -Cannot do MRI do to internal pain pump -No gross neurological deficits -Will monitor, consider neuro consult if no improvement (4) Paroxysmal atrial fibrillation: Code(s): I48.0 - Paroxysmal atrial fibrillation Status: Acute Assessment and Plan: Continue with home medications (5) Hypertension: Code(s): I10 - Essential (primary) hypertension Status: Acute Assessment and Plan: Continue with Coreg (6) Type 2 diabetes mellitus: Code(s): E11.9 - Type 2 diabetes mellitus without complications Status: Acute Assessment and Plan: Accu-Cheks AC and HS. Continue with metformin and glipizide. Accu-Cheks AC and HS. Subjective Date/time seen: 02/16/21 18:35 Interval history: Pt is an 80-year-old male with history of CVA, COPD with chronic respiratory failure w/ 3L home o2, congestive heart failure, diabetes, paroxysmal atrial fibrillation. He was brought to the emergency department for confusion and fall and subsequently admitted for pneumonia and metabolic encephalopathy. Pt is A/Ox2 and a poor historian. He c/o dry nose but otherwise has no complaints. States he doesn't know why he is here and doesn't remember coming to the hospital. Thinks that he keeps blacking out. Further hx limited secondary to mental status. Review of Systems Review of Systems: ROS unobtainable: Yes unobtainable due to mental status Exam Narrative: General: No acute distress, non toxic appearing, elderly Eyes: PERRL, no scleral icterus, EOMI HEENT: NCAT, external ears normal, dry mucous membranes Respiratory: No respiratory distress, Lungs CTA bilaterally, no wheezing Cardiovascular: RRR, no murmur Abdominal: Soft, nontender, non distended, no rebound or guarding Musculoskeletal: Moves all 4 extremities, no edema Neurological: A/Ox2, speech normal, no facial asymmetry, confused Skin: Warm, dry, no rashes Psychiatric: Confused Objective Data Vital Signs Vital Signs: Vital Signs - 24 hr 02/15/21 20:00 02/15/21 22:00 02/16/21 00:00 Temperature 97.0 F L Pulse Rate 86 68 76 Respiratory Rate 16 Blood Pressure 115/53 L Pulse Oximetry 94 02/16/21 04:00 02/16/21 06:00 02/16/21 08:00 Temperature 97.5 F L Pulse Rate 84 85 79 Respiratory Rate 16 Blood Pressure 120/55 L Pulse Oximetry 95 02/16/21 09:15 02/16/21 09:18 02/16/21 09:55 Temperature 97.7 F Pulse Rate 82 76 Respiratory Rate 20 Blood Pressure 112/52 L Pulse Oximetry 93 94 02/16/21 12:00 02/16/21 14:55 02/16/21 16:00 Temperature 98.1 F Pulse Rate 79 83 68 Respiratory Rate 16 Blood Pressure 105/56 L Pulse Oximetry 93 Intake/Output Intake/Output: Intake & Output 02/13/21 02/14/21 02/15/21 02/16/21 23:59 23:59 23:59 23:59 Intake Total 1000 1670 Output Total 1800 Balance 1000 -130 Meds/Results Medications: Active Medications Generic N
[2021-02-16 19:24] LABS: CRP 6.7 mg/dL (<1.0); Lactate Dehydrogenase 571 U/L (313-618)
[2021-02-16 22:07] LABS: Glucose Point of Care 137 mg/dl (65-105)
[2021-02-17] VITALS (10 sets, daily range): BP systolic 101–114; BP diastolic 53–67; PULSE 69–88; RESP 14–18; TEMP 36.4–36.6; O2SAT 97–100
[2021-02-17] MEDS: PIPERACILLIN/TAZOBACTAM SOD 4.5 GM in SODIUM CHLORIDE 0.9% IV 100 ML 200 ML IVPB ×4 (00:18→17:22)
[2021-02-17 05:59] LABS: Alanine Aminotransferase 17 U/L (4-50); Albumin Level 2.8 g/dL (3.5-5.1); Alkaline Phosphatase 84 U/L (38-126); Anion Gap 6 mmol/L (8-16); Aspartate Amino Transferase 26 U/L (17-59); Bilirubin,Total 0.8 mg/dL (0.2-1.3); Blood Urea Nitrogen 16 mg/dL (9-20); Calcium 7.7 mg/dL (8.4-10.2); Carbon Dioxide 36 mmol/L (22-30); Chloride 94 mmol/L (98-107); Estimated CRCL calculation 58 ml/min; Estimated Glomerular Filt Rate > 60; Glucose 138 mg/dL (65-110); Sodium 136 mmol/L (137-145)
[2021-02-17 07:57] LABS: Glucose Point of Care 167 mg/dl (65-105)
[2021-02-17 07:59] LABS: Basophils Percent Auto 0.3 % (0.2-1.2); Eosinophils Absolute Auto 0.5 K/mm3 (0-0.3); Eosinophils Percent Auto 7.7 % (0-4.4); Hematocrit 28.2 % (42.0-52.0); Hemoglobin 8.4 g/dL (14.0-18.0); Immature Granulocyte Absolute 0.02 K/mm3 (0.00-0.031); Immature Granulocyte Percent A 0.3 % (0-0.5); Immature Platelet Fraction Pct 6.7 % (0.9-11.2); Lymphocytes Absolute Auto 0.37 K/mm3 (0.9-3.2); Lymphocytes Percent Auto 6.2 % (18.3-44.2); Mean Corpuscular HGB Conc 29.8 g/dl (32-36); Mean Corpuscular Volume 80.6 fl (80-100); Mean Platelet Volume 11.2 fl (7.4-10.4); Monocytes Absolute Auto 0.8 K/mm3 (0.1-0.6); Monocytes Percent Auto 13.9 % (2.6-8.5); Neutrophils Absolute Auto 4.3 K/mm3 (1.3-6.7); Neutrophils Percent Auto 71.6 % (45.5-73.1); Platelet Count Result 147 k/mm3 (150-375); Red Cell Distribution Width 20.8 % (11.5-14.5)
[2021-02-17] MEDS: FERROUS SULFATE 324 MG TABLET PO (08:54)
[2021-02-17] MEDS: FUROSEMIDE 40 MG TABLET PO ×2 (08:54→16:21)
[2021-02-17] MEDS: MAGNESIUM OXIDE 400 MG TABLET PO ×2 (08:54→16:24)
[2021-02-17] MEDS: glipiZIDE XL 2.5 MG TAB.ER.24 PO (08:54)
[2021-02-17] MEDS: ASPIRIN 81 MG CHEWABLE TABLET PO (08:54)
[2021-02-17] MEDS: NEOMYCIN/POLYMYXIN/BACITRACIN OINTMENT 15 GM TUBE 1 APPLIC TOPICAL (08:54)
[2021-02-17] MEDS: TAMSULOSIN HCL 0.4 MG CAPSULE PO (08:55)
[2021-02-17] MEDS: PREGABALIN (*CRX) 75 MG CAPSULE PO ×3 (08:55→16:44)
[2021-02-17] MEDS: PANTOPRAZOLE 40 MG TABLET PO (08:55)
[2021-02-17 09:02] LABS: Anisocytosis 1+ (NORMAL); Hypochromasia 1+ (NORMAL)
--- NOTE | 2021-02-17 09:23 | PC.NURSE ---
Zayra Grey NUT AND BOLT ASSEMBLER notified of bp /
[2021-02-17 11:51] LABS: Glucose Point of Care 170 mg/dl (65-105)
--- NOTE | 2021-02-17 12:37 | PM.IMPN ---
Progress Note: A&P Assessment and Plan (1) CAP (community acquired pneumonia): Code(s): J18.9 - Pneumonia, unspecified organism Status: Acute Assessment and Plan: -Patient was started on Zosyn. -Blood and sputum cultures are pending. -The patient had mild leukocytosis on arrival which has resolved. The patient has no fever but has a cough. -Patient was recently discharged from [facility] I am not sure if he was checked for COVID at that time. Unsure if he is vaccinated and pt is a poor historian. Checked inflammatory markers which are not elevated, pt is on his baseline oxygen requirements, do not suspect covid at this time. (2) CHF (congestive heart failure): Code(s): I50.9 - Heart failure, unspecified Status: Acute Assessment and Plan: Pt was hypotensive today. Coreg and Enalapril held. Continue lasix at this time with close monitoring of blood pressure. (3) Acute metabolic encephalopathy: Code(s): G93.41 - Metabolic encephalopathy Status: Acute Assessment and Plan: Could be related to infectious process. The patient was found on the ground approximately 2 hours. Possibly more. -Carotid doppler negative -Cannot do MRI do to internal pain pump -No gross neurological deficits -Significant improvement today -Continue monitoring (4) Paroxysmal atrial fibrillation: Code(s): I48.0 - Paroxysmal atrial fibrillation Status: Acute Assessment and Plan: Continue with home medications (5) Hypertension: Code(s): I10 - Essential (primary) hypertension Status: Acute Assessment and Plan: Continued home meds however these have been held as he was hypotensive today. (6) Type 2 diabetes mellitus: Code(s): E11.9 - Type 2 diabetes mellitus without complications Status: Acute Assessment and Plan: Accu-Cheks AC and HS. Continue with metformin and glipizide. Accu-Cheks AC and HS. Subjective Date/time seen: 02/17/21 12:37 Interval history: Pt is an 80-year-old male with history of CVA, COPD with chronic respiratory failure w/ 3L home o2, congestive heart failure, diabetes, paroxysmal atrial fibrillation. He was brought to the emergency department for confusion and fall and subsequently admitted for pneumonia and metabolic encephalopathy. Pt is A/Ox3 today. He has no complaints. Denies cough or sob. No cp or LE edema. Had paz placed in ED, ambulating independently at this time and would like it taken out. Review of Systems Review of Systems: General: Denies fevers, chills Eyes: Denies vision changes or eye pain ENT: Denies nasal congestion or sore throat Respiratory: Denies cough or shortness of breath Cardiovascular: Denies chest pain, palpitations, or lower extremity edema Gastrointestinal: Denies abdominal pain, vomiting, or diarrhea Genitourinary: +paz Musculoskeletal: Denies back pain or muscle aches Neurological: Denies headache, paraesthesias, or motor weakness Integumentary: Denies rash Exam Narrative: General: No acute distress, non toxic appearing, elderly, sitting up in the chair Eyes: PERRL, no scleral icterus, EOMI HEENT: NCAT, external ears normal, dry mucous membranes Respiratory: No respiratory distress, Lungs CTA bilaterally, no wheezing Cardiovascular: RRR, no murmur Abdominal: Soft, nontender, non distended, no rebound or guarding Musculoskeletal: Moves all 4 extremities, no edema Neurological: A/Ox3, speech normal, no facial asymmetry Skin: Warm, dry, no rashes Psychiatric: Normal affect, normal mood Objective Data Vital Signs Vital Signs: Vital Signs - 24 hr 02/16/21 14:55 02/16/21 16:00 02/16/21 20:00 Temperature 98.1 F Pulse Rate 83 68 71 Respiratory Rate 16 Blood Pressure 105/56 L Pulse Oximetry 93 02/16/21 20:50 02/16/21 22:00 02/17/21 00:00 Temperature 97.4 F L Pulse Rate 80 80 75 Respiratory Rate 21 H
[2021-02-17] MEDS: POTASSIUM CHLORIDE 20 MEQ TABLET 40 MEQ PO (13:09)
[2021-02-17 17:10] LABS: Glucose Point of Care 150 mg/dl (65-105)
--- NOTE | 2021-02-17 20:24 | ECG_ITS ---
Measurements Intervals [place] Rate: 79 P: CA: 0 QRS: 97 QRSD: 109 T: 2 QT: 429 QTc: 495 Interpretive Statements ATRIAL FLUTTER/TACHYCARDIA VENTRICULAR PREMATURE COMPLEXES RIGHT AXIS DEVIATION LOW QRS VOLTAGE IN LIMB LEADST BASELINE ARTIFACT- I, III, AVR, AVL, AVF ABNORMAL ECG Electronically Signed On 02-18-2021 5:29:35 [employer] by Waqas Shankar D.O.
[2021-02-17 20:54] LABS: Magnesium 1.1 mg/dL (1.6-2.3)
[2021-02-17] MEDS: MAGNESIUM SULF 4 GM/WATER100ML 4 GM/100 ML BAG IVPB (21:32)
[2021-02-17 23:45] LABS: Glucose Point of Care 133 mg/dl (65-105)
[2021-02-18] VITALS (10 sets, daily range): BP systolic 107–112; BP diastolic 57–63; PULSE 65–82; RESP 16–18; TEMP 36.1–36.4; O2SAT 93–100
[2021-02-18] MEDS: PIPERACILLIN/TAZOBACTAM SOD 4.5 GM in SODIUM CHLORIDE 0.9% IV 100 ML IVPB ×2 (00:37→17:24)
[2021-02-18] MEDS: PIPERACILLIN/TAZOBACTAM SOD 4.5 GM in SODIUM CHLORIDE 0.9% IV 100 ML 150 ML IVPB ×2 (05:56→12:45)
[2021-02-18 06:54] LABS: Basophils Percent Auto 0.3 % (0.2-1.2); Eosinophils Absolute Auto 0.7 K/mm3 (0-0.3); Eosinophils Percent Auto 11.5 % (0-4.4); Hematocrit 26.4 % (42.0-52.0); Hemoglobin 7.8 g/dL (14.0-18.0); Immature Granulocyte Absolute 0.02 K/mm3 (0.00-0.031); Immature Granulocyte Percent A 0.3 % (0-0.5); Lymphocytes Absolute Auto 0.58 K/mm3 (0.9-3.2); Mean Corpuscular HGB Conc 29.5 g/dl (32-36); Mean Corpuscular Hemoglobin 23.4 pg (26-34); Mean Corpuscular Volume 79.3 fl (80-100); Mean Platelet Volume 10.3 fl (7.4-10.4); Monocytes Absolute Auto 0.7 K/mm3 (0.1-0.6); Monocytes Percent Auto 11.9 % (2.6-8.5); Neutrophils Absolute Auto 3.8 K/mm3 (1.3-6.7); Platelet Count Result 160 k/mm3 (150-375); Red Blood Count 3.33 M/mm3 (4.6-6.20); Red Cell Distribution Width 20.4 % (11.5-14.5); White Blood Count 5.8 K/mm3 (4.5-10.0)
[2021-02-18 07:04] LABS: Anion Gap 10 mmol/L (8-16); Blood Urea Nitrogen 14 mg/dL (9-20); Calcium 7.3 mg/dL (8.4-10.2); Carbon Dioxide 33 mmol/L (22-30); Chloride 92 mmol/L (98-107); Estimated CRCL calculation 65 ml/min; Estimated Glomerular Filt Rate > 60; Glucose 111 mg/dL (65-110); Potassium 3.1 mmol/L (3.4-5.0); Sodium 135 mmol/L (137-145)
[2021-02-18] MEDS: POTASSIUM CHLORIDE 20 MEQ TABLET.ER PO (07:49)
[2021-02-18] MEDS: glipiZIDE XL 2.5 MG TAB.ER.24 PO (07:49)
[2021-02-18] MEDS: ASPIRIN 81 MG CHEWABLE TABLET PO (07:49)
[2021-02-18] MEDS: FERROUS SULFATE 324 MG TABLET PO (07:49)
[2021-02-18] MEDS: FUROSEMIDE 40 MG TABLET PO ×2 (07:49→16:19)
[2021-02-18] MEDS: PANTOPRAZOLE 40 MG TABLET PO (07:50)
[2021-02-18] MEDS: TAMSULOSIN HCL 0.4 MG CAPSULE PO (07:50)
[2021-02-18] MEDS: NEOMYCIN/POLYMYXIN/BACITRACIN OINTMENT 15 GM TUBE 1 APPLIC TOPICAL (07:50)
[2021-02-18] MEDS: MAGNESIUM OXIDE 400 MG TABLET PO ×2 (07:50→16:19)
[2021-02-18] MEDS: PREGABALIN (*CRX) 75 MG CAPSULE PO ×3 (07:50→16:21)
[2021-02-18 08:11] LABS: Glucose Point of Care 107 mg/dl (65-105)
[2021-02-18 08:21] LABS: Anisocytosis 1+ (NORMAL); Poikilocytosis 1+ (NORMAL)
[2021-02-18 08:22] LABS: Ovalocytes 1+ (NORMAL); Platelet Estimate Adequate (Adequate)
--- NOTE | 2021-02-18 11:12 | PM.IMPN ---
Progress Note: A&P Assessment and Plan (1) CAP (community acquired pneumonia): Code(s): J18.9 - Pneumonia, unspecified organism Status: Acute Assessment and Plan: -Patient was started on Zosyn. -Blood cultures no growth to date -The patient had mild leukocytosis on arrival which has resolved. The patient has no fever but has a cough. -Patient was recently discharged from [facility] I am not sure if he was checked for COVID at that time. Unsure if he is vaccinated and pt is a poor historian. Checked inflammatory markers which are not elevated, pt is on his baseline oxygen requirements, do not suspect covid at this time. -Suspect AMS on arrival was related to pneumonia (2) CHF (congestive heart failure): Code(s): I50.9 - Heart failure, unspecified Status: Acute Assessment and Plan: -CXR w/ cardiomegaly -Pt arrives w/ increased oxygen requirement and AMS -BNP 5640 -Pt is on Coreg, Enalapril, and Lasix -Pt has been hypotensive so we are holding Coreg and Enalapril. -Continue lasix at this time with close monitoring of blood pressure. -Cardiology has been consulted as he had a short run of V tach last night (3) Acute metabolic encephalopathy: Code(s): G93.41 - Metabolic encephalopathy Status: Acute Assessment and Plan: Could be related to infectious process. The patient was found on the ground approximately 2 hours. Possibly more. -Carotid doppler negative -Cannot do MRI do to internal pain pump -No gross neurological deficits -Seems to be resolving -Continue monitoring (4) Paroxysmal atrial fibrillation: Code(s): I48.0 - Paroxysmal atrial fibrillation Status: Acute Assessment and Plan: -Continue with home medications -Cardiology was consulted last night as he had 2 short runs of V tach -Coreg and Enalapril currently on hold due to hypotension (5) Hypertension: Code(s): I10 - Essential (primary) hypertension Status: Acute Assessment and Plan: -Continued home meds however these have been held as he was hypotensive today. (6) Type 2 diabetes mellitus: Code(s): E11.9 - Type 2 diabetes mellitus without complications Status: Acute Assessment and Plan: -Accu-Cheks AC and HS. Continue with metformin and glipizide. Accu-Cheks AC and HS. (7) Buttock wound: Code(s): S31.809A - Unspecified open wound of unspecified buttock, initial encounter Status: Acute Assessment and Plan: -evaluated by wound care, appreciate recommendations -dry yeast maceration, no open sores, no s/s of infection. -Triple care antifungal ordered for yeast protection (8) Anemia: Code(s): D64.9 - Anemia, unspecified Status: Acute Assessment and Plan: -Hx of chronic anemia, receives iron infusions at [facility]. He does not know who his doctor is -Has been stable -Continue monitoring with daily labs Subjective Date/time seen: 02/18/21 11:12 Interval history: Pt is an 80-year-old male with history of CVA, COPD with chronic respiratory failure w/ 3L home o2, congestive heart failure, diabetes, paroxysmal atrial fibrillation. He was brought to the emergency department for confusion and fall and subsequently admitted for pneumonia and metabolic encephalopathy. Yesterday his Coreg and Enalapril were held due to hypotension. Overnight he had two shorts runs of Vtach. He states during that time he did not feel different, no cp sob or palpitations. Currently he is A/Ox3 and feels good. His hgb was also noted to be low 7.8, he states he gets iron infusions every 2-3 months at [facility]. Does not know the name of the physician that manages this. Review of Systems Review of Systems: General: Denies fevers, chills Eyes: Denies vision changes or eye pain ENT: Denies nasal congestion or sore throat Respiratory: Denies cough or shortness o
--- NOTE | 2021-02-18 11:31 | PM.CNCAR ---
Assessment and Plan Assessment and plan (1) Pneumonia: Code(s): J18.9 - Pneumonia, unspecified organism Status: Acute Assessment and Plan: On antibiotics. Due to low normal BP readings, Enalapril and Coreg are on hold. Will change Coreg to Metoprolol Tartate 25 mg BID which has less BP lowering effect. (2) NSVT (nonsustained ventricular tachycardia): Code(s): I47.2 - Ventricular tachycardia Status: Acute Assessment and Plan: One 4 beat run of VT. Probably due to hypomagnesemia and hypokalemia. Replete both. Received Mag sulfate 4 gm IVx1 and on Mag Ox 400 mg BID. (3) Atrial flutter: Code(s): I48.92 - Unspecified atrial flutter Status: Acute Assessment and Plan: Rate controlled. No on anticoagulation due to history of severe PUD bleed and he refuses anticoagulation since. (4) Diastolic dysfunction: Code(s): I51.89 - Other ill-defined heart diseases Status: Acute Assessment and Plan: Euvolemic. (5) CAD (coronary artery disease): Code(s): I25.10 - Atherosclerotic heart disease of [place] coronary artery without angina pectoris Status: Acute Assessment and Plan: Stable. His regular farm field manager is Dr. Caban at [facility] who he sees regularly. History of Present Illness History of Present Illness Consult date/time: 02/18/21 11:31 Reason for consult: VT. 80 yr old man presents to hospital due to altered mental status. His regular farm field manager is at [facility], Dr. Caban, and sees him regularly. He has a history of CHF, CAD with TN and several stents (last cath about 3 years ago per patient), atrial fib/flutter (not on anticoagulation due to significant peptic ulcer bleed in the past), DM, hypertension, MALLORY, iron deficiency anemia requiring iron infusions. Reports he was confused a few days ago prior to admission and did not know what he was doing and was found on the floor. He is no longer confused. He reports coughing with more sputum production recently. No fever or chills. It was noted on telemetry that he was having runs of VT and this is reason for consult. Normally he can walk with his cane about 20 feet and gets BARRAZA which is chronic for him. He is on 3 l/m of oxygen at home. Denies chest pain, orthopnea, PND, dizziness, palpitations. EKG: Atrial fib/flutter at 86 bpm, PVC, cannot r/o septal infarct, borderline ST-T wave in inferior leads. CXR shows bibasilar atelectasis vs pneumonia. Echo shows EF 55-60%, grade II diastolic dysfunction, mod LAE, severe GULSHAN, severe pulm hypertension with RVSP 74 mmHg. Mag 1.1, Potassium 3.1. Hb 7.8. Reason For Visit: altered mental status/chronic respiratory failure Review of Systems Review of Systems: All systems reviewed & are unremarkable except as noted in HPI and below Constitutional: Constitutional: Reports as per HPI, Denies chills, Reports fatigue and Denies fever(s) Cardiovascular: Cardiovascular: Reports as per HPI, Denies chest pain, Denies leg edema and Denies lightheadedness Respiratory: Respiratory: Reports as per HPI, Reports cough and Denies dyspnea Gastrointestinal: Gastrointestinal: Reports as per HPI and Denies abdominal pain Genitourinary: Genitourinary: Reports as per HPI and Denies dysuria Musculoskeletal: Musculoskeletal: Reports as per HPI Neurologic: Reports as per HPI, Denies dizziness and Denies syncope [facility] Past Medical History Medical History Anemia Arthritis Benign prostatic hyperplasia Cerebrovascular accident 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 Chronic anemia Chronic pain Patient had a pain pump inserted in February 2019. Chronic respiratory failure with hypoxia, on home oxygen therapy Baseline oxygen requirement is 3 L nasal cannula. Congestive heart failure Echocardiogram on 10/25/2020 showed preserved LV systolic function with an estimated EF of 5
[2021-02-18 11:34] LABS: Glucose Point of Care 132 mg/dl (65-105)
[2021-02-18] MEDS: ENOXAPARIN 40 MG/0.4 ML SYRINGE SUB-Q (12:47)
[2021-02-18] MEDS: POTASSIUM CHLORIDE 20 MEQ TABLET 40 MEQ PO (12:51)
[2021-02-18 16:53] LABS: Glucose Point of Care 141 mg/dl (65-105)
[2021-02-18] MEDS: METOPROLOL TARTRATE 25 MG TABLET PO (20:50)
[2021-02-18 22:09] LABS: Glucose Point of Care 122 mg/dl (65-105)
[2021-02-19] VITALS (16 sets, daily range): BP systolic 96–115; BP diastolic 51–74; PULSE 57–78; RESP 18; TEMP 35.9–36.1; O2SAT 96–98
[2021-02-19] MEDS: PIPERACILLIN/TAZOBACTAM SOD 4.5 GM in SODIUM CHLORIDE 0.9% IV 100 ML 120 ML IVPB ×2 (00:30→05:24)
[2021-02-19 06:37] LABS: Basophils Percent Auto 0.5 % (0.2-1.2); Eosinophils Absolute Auto 0.6 K/mm3 (0-0.3); Eosinophils Percent Auto 10.2 % (0-4.4); Hematocrit 29.5 % (42.0-52.0); Hemoglobin 8.5 g/dL (14.0-18.0); Immature Granulocyte Absolute 0.01 K/mm3 (0.00-0.031); Immature Granulocyte Percent A 0.2 % (0-0.5); Lymphocytes Absolute Auto 0.47 K/mm3 (0.9-3.2); Lymphocytes Percent Auto 8.6 % (18.3-44.2); Mean Corpuscular HGB Conc 28.8 g/dl (32-36); Mean Corpuscular Hemoglobin 23.7 pg (26-34); Mean Corpuscular Volume 82.2 fl (80-100); Mean Platelet Volume 10.9 fl (7.4-10.4); Monocytes Absolute Auto 0.8 K/mm3 (0.1-0.6); Monocytes Percent Auto 14.3 % (2.6-8.5); Neutrophils Absolute Auto 3.6 K/mm3 (1.3-6.7); Neutrophils Percent Auto 66.2 % (45.5-73.1); Platelet Count Result 173 k/mm3 (150-375); Red Blood Count 3.59 M/mm3 (4.6-6.20); Red Cell Distribution Width 20.6 % (11.5-14.5); White Blood Count 5.5 K/mm3 (4.5-10.0)
[2021-02-19 06:45] LABS: Anion Gap 2 mmol/L (8-16); Blood Urea Nitrogen 14 mg/dL (9-20); Calcium 8.4 mg/dL (8.4-10.2); Carbon Dioxide 38 mmol/L (22-30); Chloride 91 mmol/L (98-107); Estimated CRCL calculation 58 ml/min; Estimated Glomerular Filt Rate > 60; Glucose 108 mg/dL (65-110); Potassium 3.8 mmol/L (3.4-5.0); Sodium 131 mmol/L (137-145)
[2021-02-19 06:51] LABS: Magnesium 1.5 mg/dL (1.6-2.3)
--- NOTE | 2021-02-19 07:20 | PM.PNCARD ---
Progress Note: A&P Assessment and Plan (1) Pneumonia: Code(s): J18.9 - Pneumonia, unspecified organism Status: Acute Assessment and Plan: On antibiotics. Due to low normal BP readings, Enalapril is on hold. Changed Coreg to Metoprolol Tartate 25 mg BID which has less BP lowering effect. (2) NSVT (nonsustained ventricular tachycardia): Code(s): I47.2 - Ventricular tachycardia Status: Acute Assessment and Plan: Only one 4 beat run of VT. Probably due to hypomagnesemia and hypokalemia. Replete both. Received Mag sulfate 4 gm IVx1 and on Mag Ox 400 mg BID. Mag 1.5 today. Potassium normal at 3.8 today. (3) Atrial flutter: Code(s): I48.92 - Unspecified atrial flutter Status: Acute Assessment and Plan: Rate controlled. No on anticoagulation due to history of severe PUD bleed and he refuses anticoagulation since. (4) Diastolic dysfunction: Code(s): I51.89 - Other ill-defined heart diseases Status: Acute Assessment and Plan: Euvolemic. (5) CAD (coronary artery disease): Code(s): I25.10 - Atherosclerotic heart disease of [place] coronary artery without angina pectoris Status: Acute Assessment and Plan: Stable. His regular script girl is Dr. Caban at [facility] who he sees regularly. Subjective Date/time seen: 02/19/21 07:20 Denies chest pain or sob. Exam Const: General: cooperative, healthy appearing and comfortable Resp: Auscultation: clear to auscultation bilaterally, no crackles, no rales, no rhonchi and no wheezes Cardio: Jugular venous distension: no JVD Rate: regular rate Rhythm: abnormal rhythm Heart sounds: no murmurs GI: GI Palp: No abdominal tenderness and Yes Soft to palpation Neuro: General: oriented to person, oriented to place and oriented to time Extrem: Right lower extremity: no edema Left lower extremity: no edema Objective Data Vital Signs Vital Signs: Vital Signs - 24 hr 02/18/21 08:00 02/18/21 12:00 02/18/21 13:42 Temperature 97.6 F Pulse Rate 82 82 79 Respiratory Rate 16 Blood Pressure 107/63 Pulse Oximetry 97 93 02/18/21 16:00 02/18/21 20:00 12/06/21 20:50 Temperature Pulse Rate 65 81 80 Respiratory Rate Blood Pressure Pulse Oximetry 02/18/21 22:00 02/19/21 00:00 02/19/21 04:00 Temperature 96.9 F L Pulse Rate 82 57 L 67 Respiratory Rate 18 Blood Pressure 112/61 Pulse Oximetry 100 02/19/21 06:00 Temperature 97.0 F L Pulse Rate 76 Respiratory Rate 18 Blood Pressure 110/59 L Pulse Oximetry 96 Intake/Output Intake/Output: Intake & Output 02/16/21 02/17/21 02/18/21 02/19/21 23:59 23:59 23:59 23:59 Intake Total 1670 2450 1770 600 Output Total 1800 3100 2450 900 Balance -130 -650 -680 -300 Meds/Results Medications: Active Medications Generic Name Dose Route Start Last Admin Trade Name Freq PRN Reason Stop Dose Admin Albuterol 2 puff 02/16/21 00:31 Albuterol Sulfate (*Sp) Aerosol 1 Puff INHALATION Q6HRT PRN Shortness Of Breath Aspirin 81 mg 02/16/21 08:00 02/18/21 07:49 Aspirin 81 Mg Chewable Tablet PO 81 mg DAILY@0800 [facility] Administration Dextrose 12.5 gm 02/16/21 00:08 Dextrose 50% 25 Gm/50 Ml Syringe IV PUSH PRN PRN Hypoglycemia Protocol Enalapril Maleate 5 mg 02/16/21 09:00 02/17/21 09:24 Enalapril Maleate 5 Mg Tablet PO Not Given [facility] Enoxaparin Sodium 40 mg 02/18/21 11:35 02/18/21 12:47 Enoxaparin 40 Mg/0.4 Ml Syringe SUB-Q 40 mg DAILY REHAN Administration Ferrous Sulfate 324 mg 02/17/21 08:00 02/18/21 07:49 Ferrous Sulfate 324 Mg Tablet PO 324 mg DAILY@0800 [facility] Administration Furosemide 40 mg 02/16/21 09:00 02/18/21 16:19 Furosemide 40 Mg Tablet PO 40 mg BID REHAN Administration Glipizide 2.5 mg 02/16/21 08:00 02/18/21 07:49 Glipizide Xl 2.5 Mg Tab.Er.24 PO 2.5 mg DAILY@0800 [facility] Administration Glucagon 1 mg
[2021-02-19 07:48] LABS: Glucose Point of Care 103 mg/dl (65-105)
[2021-02-19 08:09] LABS: Platelet Estimate Adequate (Adequate)
[2021-02-19] MEDS: PANTOPRAZOLE 40 MG TABLET PO (08:09)
[2021-02-19] MEDS: PREGABALIN (*CRX) 75 MG CAPSULE PO ×3 (08:09→16:56)
[2021-02-19] MEDS: ASPIRIN 81 MG CHEWABLE TABLET PO (08:09)
[2021-02-19] MEDS: POTASSIUM CHLORIDE 20 MEQ TABLET.ER PO (08:09)
[2021-02-19 08:10] LABS: Hypochromasia 2+ (NORMAL); Ovalocytes 1+ (NORMAL)
[2021-02-19] MEDS: FUROSEMIDE 40 MG TABLET PO ×2 (08:10→16:54)
[2021-02-19] MEDS: MAGNESIUM OXIDE 400 MG TABLET PO ×2 (08:10→16:54)
[2021-02-19] MEDS: glipiZIDE XL 2.5 MG TAB.ER.24 PO (08:10)
[2021-02-19] MEDS: FERROUS SULFATE 324 MG TABLET PO (08:10)
[2021-02-19] MEDS: TAMSULOSIN HCL 0.4 MG CAPSULE PO (08:10)
[2021-02-19] MEDS: METOPROLOL TARTRATE 25 MG TABLET PO ×2 (08:10→20:23)
[2021-02-19] MEDS: NEOMYCIN/POLYMYXIN/BACITRACIN OINTMENT 15 GM TUBE 1 APPLIC TOPICAL (08:10)
[2021-02-19] MEDS: ENOXAPARIN 40 MG/0.4 ML SYRINGE SUB-Q (08:10)
[2021-02-19 08:11] LABS: Poikilocytosis 1+ (NORMAL)
--- NOTE | 2021-02-19 10:47 | PCPTNOTE ---
Attempted to see patient for PT at this time, however patient declined due to just getting back in bed. Will check back if time allows.
[2021-02-19] MEDS: MAGNESIUM SULF 2 GM/WATER 50ML 2 GM/50 ML BAG IVPB (10:54)
--- NOTE | 2021-02-19 11:24 | PM.IMPN ---
Progress Note: A&P Assessment and Plan (1) Dizziness: Code(s): R42 - Dizziness and giddiness Status: Acute Assessment and Plan: Patient felt dizzy today while up in the chair. No chest pain during this -he is neurologically intact and this has resolved with lying down -will check orthostatic blood pressures -no telemetry abnormalities during this -continue oral Lasix at this time but will monitor fluid status -could be due to metoprolol, will monitor while on this (2) Pneumonia: Code(s): J18.9 - Pneumonia, unspecified organism Status: Acute Assessment and Plan: Possible pneumonia noted on chest x-ray. He has recently been hospitalized but was also found down at home. It is unclear if this is hospital-acquired or aspiration. Nevertheless, he has had Zosyn for 3 days and I will transition him to Augmentin. MRSA and Pseudomonas seems less likely. (3) CHF (congestive heart failure): Code(s): I50.9 - Heart failure, unspecified Status: Acute Assessment and Plan: Pt arrives w/ increased oxygen requirement and AMS and is being treated for pneumonia -BNP 5640, less than he usually is -Coreg has been transition to metoprolol. Enalapril help. Continue oral Lasix -Cardiology has been consulted as he had a short run of V tach last night again 02/18/21 (4) Acute metabolic encephalopathy: Code(s): G93.41 - Metabolic encephalopathy Status: Acute Assessment and Plan: Resolved. Could be related to infectious process. The patient was found on the ground approximately 2 hours. Possibly more. -Carotid doppler negative -Cannot do MRI do to internal pain pump -No gross neurological deficits (5) Paroxysmal atrial fibrillation: Code(s): I48.0 - Paroxysmal atrial fibrillation Status: Acute Assessment and Plan: Continue with metoprolol -patient has a history of GI bleed and is not on any anticoagulation -Cardiology was consulted last night as he had 2 short runs of V tach, metoprolol started (6) Hypertension: Code(s): I10 - Essential (primary) hypertension Status: Acute Assessment and Plan: Last blood pressure 110/69 -monitor (7) Type 2 diabetes mellitus: Code(s): E11.9 - Type 2 diabetes mellitus without complications Status: Acute Assessment and Plan: Last glucose 103 -metformin on hold -patient also takes glipizide but this could be the reason he was found down? His glucose was in the 70s on admission and I do not see anything mention in the EMS report. His last A1c was controlled. Will redraw A1c tomorrow morning and consider discontinuing this at discharge (8) Buttock wound: Code(s): S31.809A - Unspecified open wound of unspecified buttock, initial encounter Status: Acute Assessment and Plan: evaluated by wound care, please see their note -dry yeast maceration, no open sores, no s/s of infection. -Triple care antifungal ordered for yeast protection (9) Anemia: Code(s): D64.9 - Anemia, unspecified Status: Acute Assessment and Plan: Hx of chronic anemia, receives iron infusions at [facility]. He does not know who his doctor is -hemoglobin stable -history of GI bleed (10) Fall: Code(s): W19.XXXA - Unspecified fall, initial encounter Status: Acute Assessment and Plan: Patient was found down at home and is unclear what caused his fall -CK normal, head and cervical spine CT without acute pathology -could be due to possible pneumonia causing weakness -differential could include hypoglycemia. Glipizide will be stopped -continue PT and OT Time Spent With Patient Time with patient: 25 - 35 minutes Subjective Date/time seen: 02/19/21 11:24 Interval history: Pt is a 80-year-old male here for altered mental status, fall, and pneumonia. Patient was seen today and states he has had be
[2021-02-19 12:21] LABS: Glucose Point of Care 141 mg/dl (65-105)
[2021-02-19] MEDS: AMOXICILLIN/CLAVULANATE K 500-125 MG TAB 1 TABLET PO ×2 (14:21→22:42)
[2021-02-19 16:28] LABS: Glucose Point of Care 138 mg/dl (65-105)
[2021-02-19 21:48] LABS: Glucose Point of Care 144 mg/dl (65-105)
[2021-02-20] VITALS (9 sets, daily range): BP systolic 105–124; BP diastolic 54–61; PULSE 62–76; RESP 20; TEMP 35.9; O2SAT 93
[2021-02-20] MEDS: AMOXICILLIN/CLAVULANATE K 500-125 MG TAB 1 TABLET PO ×2 (05:50→13:14)
[2021-02-20 06:16] LABS: Basophils Percent Auto 0.4 % (0.2-1.2); Eosinophils Absolute Auto 0.8 K/mm3 (0-0.3); Eosinophils Percent Auto 12.3 % (0-4.4); Hematocrit 32.1 % (42.0-52.0); Hemoglobin 9.3 g/dL (14.0-18.0); Immature Granulocyte Absolute 0.03 K/mm3 (0.00-0.031); Immature Granulocyte Percent A 0.4 % (0-0.5); Lymphocytes Absolute Auto 0.69 K/mm3 (0.9-3.2); Lymphocytes Percent Auto 10.3 % (18.3-44.2); Mean Corpuscular Hemoglobin 23.5 pg (26-34); Mean Corpuscular Volume 81.3 fl (80-100); Mean Platelet Volume 10.9 fl (7.4-10.4); Monocytes Absolute Auto 0.7 K/mm3 (0.1-0.6); Monocytes Percent Auto 10.2 % (2.6-8.5); Neutrophils Absolute Auto 4.4 K/mm3 (1.3-6.7); Neutrophils Percent Auto 66.4 % (45.5-73.1); Platelet Count Result 202 k/mm3 (150-375); Red Blood Count 3.95 M/mm3 (4.6-6.20); Red Cell Distribution Width 20.6 % (11.5-14.5); White Blood Count 6.7 K/mm3 (4.5-10.0)
[2021-02-20 06:18] LABS: Anion Gap 4 mmol/L (8-16); Blood Urea Nitrogen 14 mg/dL (9-20); CRP 0.7 mg/dL (<1.0); Calcium 8.9 mg/dL (8.4-10.2); Carbon Dioxide 37 mmol/L (22-30); Chloride 91 mmol/L (98-107); Estimated CRCL calculation 53 ml/min; Estimated Glomerular Filt Rate > 60; Glucose 142 mg/dL (65-110); Magnesium 1.4 mg/dL (1.6-2.3); Sodium 132 mmol/L (137-145)
[2021-02-20 07:04] LABS: Platelet Estimate Adequate (Adequate); Polychromasia 1+ (NORMAL)
[2021-02-20 07:45] LABS: Glucose Point of Care 139 mg/dl (65-105)
[2021-02-20] MEDS: MAGNESIUM SULF 2 GM/WATER 50ML 2 GM/50 ML BAG IVPB (07:47)
--- NOTE | 2021-02-20 07:52 | PM.PNCARD ---
Progress Note: A&P Assessment and Plan (1) Pneumonia: Code(s): J18.9 - Pneumonia, unspecified organism Status: Acute Assessment and Plan: On antibiotics. Due to low normal BP readings, Enalapril is on hold. Changed Coreg to Metoprolol Tartate 25 mg BID which has less BP lowering effect. (2) NSVT (nonsustained ventricular tachycardia): Code(s): I47.2 - Ventricular tachycardia Status: Acute Assessment and Plan: Only one 4 beat run of VT. The rest were artifacts. Probably due to hypomagnesemia and hypokalemia. Replete both. Received Mag sulfate 4 gm IVx1 and on Mag Ox 400 mg BID. Mag 1.4 today. Potassium normal at 4.0 today. Give additional IV Mag 2 gm today. Will sign off. Please call with any questions. (3) Atrial flutter: Code(s): I48.92 - Unspecified atrial flutter Status: Acute Assessment and Plan: Rate controlled. No on anticoagulation due to history of severe PUD bleed and he refuses anticoagulation since. (4) Diastolic dysfunction: Code(s): I51.89 - Other ill-defined heart diseases Status: Acute Assessment and Plan: Euvolemic. (5) CAD (coronary artery disease): Code(s): I25.10 - Atherosclerotic heart disease of [place] coronary artery without angina pectoris Status: Acute Assessment and Plan: Stable. His regular score caller is Dr. Caban at [facility] who he sees regularly. Subjective Date/time seen: 02/20/21 07:52 Denies chest pain or sob. Feels good. Exam Const: General: cooperative, healthy appearing and comfortable Resp: Auscultation: clear to auscultation bilaterally, no crackles, no rales, no rhonchi and no wheezes Cardio: Jugular venous distension: no JVD Rate: regular rate Rhythm: abnormal rhythm Heart sounds: no murmurs GI: GI Palp: No abdominal tenderness and Yes Soft to palpation Neuro: General: oriented to person, oriented to place and oriented to time Extrem: Right lower extremity: no edema Left lower extremity: no edema Objective Data Vital Signs Vital Signs: Vital Signs - 24 hr 02/19/21 08:00 02/19/21 08:10 02/19/21 09:50 Temperature Pulse Rate 78 76 Respiratory Rate Blood Pressure Pulse Oximetry 96 96 02/19/21 10:56 02/19/21 12:00 02/19/21 13:25 Temperature Pulse Rate 76 Respiratory Rate Blood Pressure 110/69 113/70 Pulse Oximetry 02/19/21 13:28 02/19/21 13:31 02/19/21 13:37 Temperature 96.6 F L Pulse Rate 76 Respiratory Rate 18 Blood Pressure 105/68 96/51 L Pulse Oximetry 98 02/19/21 16:00 02/19/21 20:00 02/19/21 20:23 Temperature Pulse Rate 61 73 72 Respiratory Rate Blood Pressure Pulse Oximetry 98 02/19/21 21:31 02/20/21 00:00 02/20/21 04:00 Temperature 96.8 F L Pulse Rate 64 71 65 Respiratory Rate 18 Blood Pressure 115/74 Pulse Oximetry 98 02/20/21 05:02 Temperature 96.7 F L Pulse Rate 68 Respiratory Rate 20 Blood Pressure 124/61 Pulse Oximetry 93 Intake/Output Intake/Output: Intake & Output 02/17/21 02/18/21 02/19/21 02/20/21 23:59 23:59 23:59 23:59 Intake Total 2450 1770 1940 300 Output Total 3100 2450 2200 900 Gzgdmcy -650 -680 -260 -600 Meds/Results Medications: Active Medications Generic Name Dose Route Start Last Admin Trade Name Freq PRN Reason Stop Dose Admin Albuterol 2 puff 02/16/21 00:31 Albuterol Sulfate (*Sp) Aerosol 1 Puff INHALATION Q6HRT PRN Shortness Of Breath Amoxicillin/Clavulanate Potassium 1 tablet 02/19/21 14:00 02/20/21 05:50 Amoxicillin/Clavulanate K 500-125 Mg Tab PO 1 tablet Q8HR REHAN Administration Aspirin 81 mg 02/16/21 08:00 02/19/21 08:09 Aspirin 81 Mg Chewable Tablet PO 81 mg DAILY@0800 REHAN Administration Dextrose 12.5 gm 02/16/21 00:08 Dextrose 50% 25 Gm/50 Ml Syringe IV PUSH PRN PRN Hypoglycemia Protocol Enalapril Maleate 5 mg 02/16/21 09:00 02/17/21 09:24 Enalapri
[2021-02-20] MEDS: NEOMYCIN/POLYMYXIN/BACITRACIN OINTMENT 15 GM TUBE 1 APPLIC TOPICAL (08:04)
[2021-02-20] MEDS: PANTOPRAZOLE 40 MG TABLET PO (08:05)
[2021-02-20] MEDS: METOPROLOL TARTRATE 25 MG TABLET PO (08:05)
[2021-02-20] MEDS: POTASSIUM CHLORIDE 20 MEQ TABLET.ER PO (08:05)
[2021-02-20] MEDS: FUROSEMIDE 40 MG TABLET PO (08:05)
[2021-02-20] MEDS: PREGABALIN (*CRX) 75 MG CAPSULE PO ×2 (08:05→12:10)
[2021-02-20] MEDS: FERROUS SULFATE 324 MG TABLET PO (08:05)
[2021-02-20] MEDS: ASPIRIN 81 MG CHEWABLE TABLET PO (08:06)
[2021-02-20] MEDS: ENOXAPARIN 40 MG/0.4 ML SYRINGE SUB-Q (08:06)
[2021-02-20] MEDS: TAMSULOSIN HCL 0.4 MG CAPSULE PO (08:06)
[2021-02-20] MEDS: MAGNESIUM OXIDE 400 MG TABLET PO (08:06)
[2021-02-20 11:32] LABS: Glucose Point of Care 151 mg/dl (65-105)
--- NOTE | 2021-02-20 12:06 | PM.DS ---
DS: Admitting Diagnosis Discharge Date 02/20/21 Admitting Diagnosis fall DS: Discharge Diagnosis Discharge Diagnosis (1) Pneumonia: Code(s): J18.9 - Pneumonia, unspecified organism Status: Acute Assessment and Plan: Possible pneumonia noted on chest x-ray. He has recently been hospitalized but was also found down at home. It is unclear if this is hospital-acquired or aspiration. Nevertheless, he has had Zosyn for 3 days and he was transitioned to Augmentin. MRSA and Pseudomonas seems less likely. (2) CHF (congestive heart failure): Code(s): I50.9 - Heart failure, unspecified Status: Acute Assessment and Plan: Pt arrives w/ increased oxygen requirement and AMS and is being treated for pneumonia -BNP 5640, less than he usually is -Coreg has been transition to metoprolol. Enalapril have been stopped. Continue oral Lasix (3) Dizziness: Code(s): R42 - Dizziness and giddiness Status: Acute Assessment and Plan: Resolved. Pt was slightly orthostatic at one point during his hospital stay but that improved and he had no further dizziness. -no telemetry abnormalities during this -doubt it was due to metoprolol since he improved (4) Acute metabolic encephalopathy: Code(s): G93.41 - Metabolic encephalopathy Status: Acute Assessment and Plan: Resolved. Could be related to infectious process. The patient was found on the ground approximately 2 hours. Possibly more. -Carotid doppler negative -Cannot do MRI do to internal pain pump -No gross neurological deficits -consider hypoglycemia as well. (5) Paroxysmal atrial fibrillation: Code(s): I48.0 - Paroxysmal atrial fibrillation Status: Acute Assessment and Plan: Continue with metoprolol -patient has a history of GI bleed and is not on any anticoagulation (6) Hypertension: Code(s): I10 - Essential (primary) hypertension Status: Acute Assessment and Plan: Last blood pressure 105/54 -medications adjusted for this. see below (7) Type 2 diabetes mellitus: Code(s): E11.9 - Type 2 diabetes mellitus without complications Status: Acute Assessment and Plan: Last glucose 151 -continue metformin at home -patient also takes glipizide but this could be the reason he was found down? His glucose was in the 70s on admission and I do not see anything mention in the EMS report. His last A1c 5.0. glipizide discontinued (8) Buttock wound: Code(s): S31.809A - Unspecified open wound of unspecified buttock, initial encounter Status: Acute Assessment and Plan: evaluated by wound care, please see their note -dry yeast maceration, no open sores, no s/s of infection. -pt is to monitor the area and let his pcp know if it changes (9) Anemia: Code(s): D64.9 - Anemia, unspecified Status: Acute Assessment and Plan: Hx of chronic anemia, receives iron infusions at [facility]. He does not know who his doctor is -hemoglobin stable -history of GI bleed (10) Fall: Code(s): W19.XXXA - Unspecified fall, initial encounter Status: Acute Assessment and Plan: Patient was found down at home and is unclear what caused his fall -CK normal, head and cervical spine CT without acute pathology -could be due to possible pneumonia causing weakness -differential could include hypoglycemia. Glipizide stopped -pt did well with PT and OT and did not need further therapy DS: Summary Hospital Course Hospital Course: DOS 02/20/21 Patient is a 80-year-old male on chronic oxygen who has diabetes and CHF who presented emergency room 02/15/2021 for fall and altered mental status. Vitals in the ER were temperature 97.0?, pulse 68, respiratory rate 16, blood pressure 115/53, pulse ox 94 on room air. Initial white blood cell count 12.9, hemoglobin 8.3, hematocrit 30.2, platelets 16
== END 2021-02-20 13:50 | disposition home or self-care (01) | DRG 193 ==
LOC: ANHED 17:51 → ANH2MED 17:57
PROVIDERS: Internal Medicine Cardiovascular Disease; Nurse Practitioner; Physician Assistant; Admitting Provider Internal Medicine; Emergency Provider General Practice; PCP Internal Medicine; Visit Provider Physician Assistant
DX: J18.9 Pneumonia, unspecified organism (principal); G93.41 Metabolic encephalopathy; J96.11 Chronic respiratory failure with hypoxia; I47.2 Ventricular tachycardia; I48.92 Unspecified atrial flutter; Z99.81 Dependence on supplemental oxygen; W19.XXXA Unspecified fall, initial encounter; N40.0 Benign prostatic hyperplasia without lower urinary tract symptoms; I25.10 Atherosclerotic heart disease of native coronary artery without angina pectoris; I27.20 Pulmonary hypertension, unspecified; I48.0 Paroxysmal atrial fibrillation; I11.0 Hypertensive heart disease with heart failure; I50.9 Heart failure, unspecified; E11.9 Type 2 diabetes mellitus without complications; D50.9 Iron deficiency anemia, unspecified; S31.809A Unspecified open wound of unspecified buttock, initial encounter; G89.29 Other chronic pain; Z96.89 Presence of other specified functional implants; G47.33 Obstructive sleep apnea (adult) (pediatric); M19.90 Unspecified osteoarthritis, unspecified site; M48.00 Spinal stenosis, site unspecified; F48.2 Pseudobulbar affect; R42 Dizziness and giddiness; R60.9 Edema, unspecified; E83.42 Hypomagnesemia; E87.6 Hypokalemia; Z79.84 Long term (current) use of oral hypoglycemic drugs; Z79.82 Long term (current) use of aspirin; Z79.899 Other long term (current) drug therapy; Z86.73 Personal history of transient ischemic attack (TIA), and cerebral infarction without residual deficits; Z87.891 Personal history of nicotine dependence; Z98.42 Cataract extraction status, left eye; Z98.41 Cataract extraction status, right eye; Z87.11 Personal history of peptic ulcer disease; I25.2 Old myocardial infarction; Z95.5 Presence of coronary angioplasty implant and graft
CPT/HCPCS: 36415; 36600; 70450; 71045; 72125; 80048; 80053; 81001; 82375; 82550; 82728; 82805; 82948; 83036; 83050; 83605; 83615; 83735; 83874; 83880; 84443; 85025; 85055; 85610; 85730; 86140; 87040; 93005; 93306; 93880; 93971; 96361; 96365; 96374; 96375; 96376; 97110; 97116; 97162; 97165; 97530; 97535; 99285; A9270; G0378; J1650; J2310; J2543; J3475; J7030

== ENCOUNTER 2021-03-01 10:58 | Inpatient (IN) | payer MEDICARE, MEDICAID, SELFPAY ==
[2021-03-01] VITALS (8 sets, daily range): BP systolic 81–142; BP diastolic 43–123; PULSE 60–68; RESP 14–20; TEMP 36.3; O2SAT 93–100
--- NOTE | ~2021-03-01 | US_ITS ---
EXAMINATION: US renal BI DATE: 03/02/2021 10:40 INDICATION: Acute renal failure. TECHNIQUE: Multiple ultrasound grayscale images of the kidneys were obtained. COMPARISON: Chest CT 12/11/2020 FINDINGS: The right kidney measures 11.4 x 7.9 x 8.2 cm. The left kidney measures 11.6 x 5.1 x 6.9 cm. The kidn eys demonstrate normal parenchymal echogenicity. There is a 4.0 cm cyst in left kidney. There is no h ydronephrosis. The bladder is normal. The prostate is mildly enlarged. IMPRESSION: 1. Normal kidney sizes. No hydronephrosis. Reviewed, dictated and finalized at location A. JANITOR
--- NOTE | 2021-03-01 11:15 | ECG_ITS ---
Measurements Intervals [place] Rate: 58 P: 269 DE: 239 QRS: 102 QRSD: 120 T: 43 QT: 495 QTc: 490 Interpretive Statements ATRIAL FLUTTER/TACHYCARDIA WITH SLOW VENTRICULAR RESPONSE RIGHT AXIS DEVIATION INTRAVENTRICULAR CONDUCTION DELAY DELAYED PRECORDIAL R/S TRANSITION BORDERLINE ST-T WAVE ABNORMALITY- INF/HIGH LAT LEADS BASELINE ARTIFACT- I, , III, AVR, AVL, AVF ABNORMAL ECG Electronically Signed On 03-01-2021 13:05:45 [employer]AL [employer]IKER by Waqas Shankar D.O.
[2021-03-01 15:56] LABS: Alanine Aminotransferase 14 U/L (4-50); Albumin Level 3.9 g/dL (3.5-5.1); Alkaline Phosphatase 124 U/L (38-126); Anion Gap 8 mmol/L (8-16); Aspartate Amino Transferase 25 U/L (17-59); Bilirubin,Total 0.7 mg/dL (0.2-1.3); Blood Urea Nitrogen 53 mg/dL (9-20); Calcium 8.3 mg/dL (8.4-10.2); Carbon Dioxide 30 mmol/L (22-30); Chloride 91 mmol/L (98-107); Estimated CRCL calculation 13 ml/min; Estimated Glomerular Filt Rate 13; Glucose 86 mg/dL (65-110); Potassium 6.4 mmol/L (3.4-5.0); Sodium 129 mmol/L (137-145)
[2021-03-01] MEDS: DEXTROSE 50% 25 GM/50 ML SYRINGE IV PUSH (16:15)
[2021-03-01] MEDS: ALBUTEROL SULFATE NEB 2.5 MG/0.5 ML INH 10 MG INHALATION (16:15)
[2021-03-01] MEDS: SODIUM CHLORIDE 0.9% IV 1,000 ML 999 ML IV CONT (16:16)
[2021-03-01] MEDS: INSULIN HUMAN REGULAR (*BKC) 100 UNITS/ML IV PUSH (16:20)
[2021-03-01] MEDS: SODIUM POLYSTYRENE SULFONONATE 15 GM/60 ML BTL 30 GM PO (16:27)
--- NOTE | 2021-03-01 16:34 | ED.GENADULT ---
HPI - General Adult General Chief complaint: Recheck/Abnormal Lab/Rx Stated complaint: ELEVATED K+ 02/28/2021 Time Seen by Provider: 03/01/21 14:35 History of Present Illness HPI narrative: 80-year-old male presenting to the emergency department for evaluation of abnormal labs at outpatient. Patient had labs drawn yesterday and it was resulted with a high potassium. Patient's primary care physician notified him to present to the emerge department for evaluation. Patient denies any significant plaint. Patient states over the last few days he has had decreased p.o. intake but was unable to give any specific reason for having the decreased p.o. intake.. Patient states he still has been taking his home meds as directed. Patient states that he has been taking home potassium. Related Data Home Medications Medication Instructions Recorded Confirmed Nuedexta See Rx Instructions .ROUTE .COMPLEX 10/24/20 02/15/21 metformin 1,000 mg PO BID PRN 10/24/20 02/15/21 pantoprazole 40 mg PO DAILY 10/24/20 02/15/21 pregabalin 75 mg PO TID 10/24/20 02/15/21 tamsulosin 0.4 mg PO DAILY 10/24/20 02/15/21 ferrous sulfate 4 ml PO DAILY 12/11/20 02/15/21 Allergies Allergy/AdvReac Type Severity Reaction Status Date / Time No Known Allergies Allergy Verified 12/24/20 16:57 Review of Systems Review of Systems: CONSTITUTIONAL: Denies fever, chills, or sweats. Loss of appetite and decreased p.o. intake EYES: Denies visual changes, redness, or discharge. ENT: Denies rhinorrhea, congestion, sore throat, or otalgia. CARDIOVASCULAR: Denies chest pain, palpitations, or edema. RESPIRATORY: Denies cough or dyspnea. GASTROINTESTINAL: Denies abdominal pain, nausea, vomiting, or diarrhea. GENITOURINARY: Denies dysuria or hematuria. SKIN: Denies rash or itching. MUSCULOSKELETAL: Denies back pain, joint pain, or myalgia. NEUROLOGIC: Denies headache, numbness, or weakness. PSYCHIATRIC: Denies anxiety or depression. [facility] Past Medical History Medical History Anemia Arthritis Benign prostatic hyperplasia Cerebrovascular accident 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 Chronic anemia Chronic pain Patient had a pain pump inserted in February 2019. Chronic respiratory failure with hypoxia, on home oxygen therapy Baseline oxygen requirement is 3 L nasal cannula. Congestive heart failure Echocardiogram on 10/25/2020 showed preserved LV systolic function with an estimated EF of 50 to 55% and abnormal diastolic function. With repeat limited echocardiogram 11/2020 demonstrated EF of 40 45% and abnormal diastolic function. Coronary artery disease Gastroesophageal reflux disease History of bleeding peptic ulcer Hypertension Iron deficiency anemia Receives frequent iron infusions. Moderate pulmonary hypertension Estimated pulmonary arterial systolic pressure was 54 mmHg on echocardiogram dated 10/25/2020. Paroxysmal atrial fibrillation Pseudobulbar affect Spinal stenosis Type 2 diabetes mellitus Hemoglobin A1c was 6.3% on 10/25/2020. Surgical History Surgical History History of bilateral cataract extraction History of hernia repair Family History Family History Father Acute myocardial infarction Sibling Acute myocardial infarction Brain aneurysm Other No problems noted. Mother Breast cancer Social History Social History Social History: The patient tells me that he only has 1 child. He is retired from the [employer]. He is a former smoker. No alcohol marijuana or illicit drugs. Healthcare power of commonwealth attorney: Lennie Cruz, granddaughter. Code status: Full code. Smoking packs per day: 3 Smoking cigarettes per day: 60.0 Years smoked: 40 Smoking pack-years: 120.00 Smoking status:
[2021-03-01 17:40] LABS: Basophils Percent Auto 0.4 % (0.2-1.2); Eosinophils Absolute Auto 0.3 K/mm3 (0-0.3); Eosinophils Percent Auto 4.1 % (0-4.4); Hematocrit 31.1 % (42.0-52.0); Hemoglobin 8.8 g/dL (14.0-18.0); Immature Granulocyte Absolute 0.06 K/mm3 (0.00-0.031); Immature Granulocyte Percent A 0.7 % (0-0.5); Lymphocytes Absolute Auto 0.86 K/mm3 (0.9-3.2); Lymphocytes Percent Auto 10.3 % (18.3-44.2); Mean Corpuscular HGB Conc 28.3 g/dl (32-36); Mean Corpuscular Hemoglobin 23.8 pg (26-34); Mean Corpuscular Volume 84.1 fl (80-100); Mean Platelet Volume 10.7 fl (7.4-10.4); Monocytes Absolute Auto 1.2 K/mm3 (0.1-0.6); Monocytes Percent Auto 14.2 % (2.6-8.5); Neutrophils Absolute Auto 5.9 K/mm3 (1.3-6.7); Neutrophils Percent Auto 70.3 % (45.5-73.1); Platelet Count Result 216 k/mm3 (150-375); Red Cell Distribution Width 19.9 % (11.5-14.5); White Blood Count 8.3 K/mm3 (4.5-10.0)
[2021-03-01 17:54] LABS: Glucose 89 mg/dL (65-110); Magnesium 2.3 mg/dL (1.6-2.3)
[2021-03-01 17:56] LABS: Platelet Estimate Adequate (Adequate)
[2021-03-01 17:57] LABS: Anisocytosis 2+ (NORMAL); Hypochromasia 3+ (NORMAL); Ovalocytes 1+ (NORMAL)
--- NOTE | 2021-03-01 19:00 | PC.NURSE ---
Assuming care of pt.
[2021-03-01 19:44] LABS: Glucose Point of Care 128 mg/dl (65-105)
--- NOTE | 2021-03-01 20:29 | PC.NURSE ---
Rn spoke with admitting MD regarding blood pressure orders given.
[2021-03-01] MEDS: SODIUM CHLORIDE 0.9% IV 500 ML 999 ML IV CONT (20:43)
[2021-03-01 20:50] LABS: Anion Gap 9 mmol/L (8-16); Blood Urea Nitrogen 54 mg/dL (9-20); Calcium 8.2 mg/dL (8.4-10.2); Carbon Dioxide 28 mmol/L (22-30); Chloride 93 mmol/L (98-107); Estimated CRCL calculation 14 ml/min; Estimated Glomerular Filt Rate 14; Glucose 125 mg/dL (65-110); Potassium 5.6 mmol/L (3.4-5.0); Sodium 130 mmol/L (137-145)
--- NOTE | 2021-03-01 23:39 | PM.IMHP ---
H&P: HPI History of Present Illness Date/Time: 03/01/21 23:39 this is an 80-year-old male patient who frequently is admitted to the hospital. The patient typically has low potassium. The patient came to the emergency room for evaluation of abnormal labs that were performed outpatient yesterday. The labs resulted that he has a high potassium. His primary care physician notified him to present to the emergency department for evaluation. Patient denies any significant complaints. The patient has had decreased p.o. intake and has been unable to give any specific reason for his decreased oral intake. The patient stated he still been taking his home medications. Over the patient appears quite tired when I saw the patient. Patient's sodium initially was 129 now it is 130. His potassium 6.4 now it is 5.6. Chloride 91 and then 93. Creatinine 4.3 and is now 4.0. Earlier this month his BUN and creatinine have been normal. Glucose was 125. The patient is was given D50, albuterol, IV fluids, insulin, sodium bicarb. Patient's blood pressure was 86/47 so I did order a bolus for him. The patient is being admitted to inpatient services on the date of service 03/01/2021 Chief Complaint: Abnormal labs Review of Systems Review of Systems: All systems reviewed & are unremarkable except as noted in HPI and below Constitutional: Constitutional: Reports as per HPI and Reports no additional constitutional complaints Eyes: Eyes: Reports as per HPI and Reports no additional eye complaints ENT: Reports system reviewed and no additional complaints, except as documented and Reports Normal hearing present Cardiovascular: Cardiovascular: Reports no additional cardiovascular complaints Respiratory: Respiratory: Reports no additional respiratory complaints and Reports no additional respiratory complaints Gastrointestinal: Gastrointestinal: Reports as per HPI and Reports no additional gastrointestinal complaints Musculoskeletal: Musculoskeletal: Reports no additional musculoskeletal complaints Integumentary/Breasts: Skin/Breast: Reports system reviewed and no additional complaints, except as docu and Reports as per HPI Neurologic: Reports system reviewed and no additional complaints, except as documented, Reports as per HPI and Reports Normal hearing present Psychiatric: Psychiatric: Reports no additional psychiatric complaints and Reports as per HPI Endocrine: Endocrine: Reports no additional endocrine complaints Hematologic/Lymphatic: Hematologic/Lymphatic: Reports no additional hematologic/lymphatic complaints Allergic/Immunologic: Allergic/Immunologic: Reports no additional allergic/immunologic complaints [facility] Past Medical History Medical History Anemia Arthritis Benign prostatic hyperplasia Cerebrovascular accident 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 Chronic anemia Chronic pain Patient had a pain pump inserted in February 2019. Chronic respiratory failure with hypoxia, on home oxygen therapy Baseline oxygen requirement is 3 L nasal cannula. Congestive heart failure Echocardiogram on 10/25/2020 showed preserved LV systolic function with an estimated EF of 50 to 55% and abnormal diastolic function. With repeat limited echocardiogram 11/2020 demonstrated EF of 40 45% and abnormal diastolic function. Coronary artery disease Gastroesophageal reflux disease History of bleeding peptic ulcer Hypertension Iron deficiency anemia Receives frequent iron infusions. Moderate pulmonary hypertension Estimated pulmonary arterial systolic pressure was 54 mmHg on echocardiogram dated 10/25/2020. Paroxysmal atrial fibrillation Pseudobulbar affect Spinal stenosis Type 2 diabetes mellitus Hemoglobin A1c was 6.3% on 10/25/2020. Surgical History Surgical History History of bilateral cataract extraction History of
[2021-03-02] VITALS (10 sets, daily range): BP systolic 89–128; BP diastolic 40–83; PULSE 64–105; RESP 14–18; TEMP 36.2–37; O2SAT 95–98; BMI 32.3
[2021-03-02] MEDS: ALBUTEROL SULFATE NEB 2.5 MG/0.5 ML INH 5 MG INHALATION (00:07)
[2021-03-02] MEDS: SODIUM CHLORIDE 0.9% IV 1,000 ML 100 ML IV CONT (03:47)
--- NOTE | 2021-03-02 04:11 | PC.NURSE ---
I certify that the inpatient services were ordered in accordance with Medicare regulations governing the order. This includes certification that hospital inpatient services are reasonable and necessary and in the case of services not specified as inpatient-only under 42 CFR 419.22(n), that they are appropriately provided as inpatient services in accordance to with the 2-midnight benchmark under 43 CFR 412.3(e)
[2021-03-02 06:51] LABS: Albumin Level 3.5 g/dL (3.5-5.1); Anion Gap 9 mmol/L (8-16); Blood Urea Nitrogen 50 mg/dL (9-20); CRP 1.5 mg/dL (<1.0); Calcium 7.9 mg/dL (8.4-10.2); Carbon Dioxide 29 mmol/L (22-30); Chloride 96 mmol/L (98-107); Creatine Kinase 22 U/L (55-170); Estimated CRCL calculation 20 ml/min; Estimated Glomerular Filt Rate 22; Glucose 164 mg/dL (65-110); Magnesium 2.2 mg/dL (1.6-2.3); Phosphorus 5.7 mg/dL (2.5-4.5); Sodium 134 mmol/L (137-145)
[2021-03-02 07:07] LABS: Erythrocyte Sedimentation Rate 20 mm/hr (0-20)
[2021-03-02 07:15] LABS: Complement C3 75 mg/dL (88-165)
[2021-03-02 07:35] LABS: HIV 1/2 Ab P24 Ag Result Negative (Negative)
[2021-03-02 07:36] LABS: Hepatitis B Surface Antigen Negative (Negative)
[2021-03-02 07:40] LABS: Hepatitis B Core IgM Result Negative (Negative)
[2021-03-02 07:53] LABS: Hepatitis B Surface Anti Res Negative; Hepatitis C Virus Antibody Negative (Negative)
[2021-03-02 08:02] LABS: Glucose Point of Care 141 mg/dl (65-105)
[2021-03-02 10:10] LABS: Alanine Aminotransferase 13 U/L (4-50); Albumin Level 3.4 g/dL (3.5-5.1); Alkaline Phosphatase 136 U/L (38-126); Anion Gap 11 mmol/L (8-16); Aspartate Amino Transferase 23 U/L (17-59); Bilirubin,Total 0.5 mg/dL (0.2-1.3); Blood Urea Nitrogen 52 mg/dL (9-20); Calcium 7.9 mg/dL (8.4-10.2); Carbon Dioxide 27 mmol/L (22-30); Chloride 95 mmol/L (98-107); Estimated CRCL calculation 19 ml/min; Estimated Glomerular Filt Rate 20; Glucose 161 mg/dL (65-110); Sodium 133 mmol/L (137-145)
[2021-03-02 10:22] LABS: Basophils Percent Auto 0.2 % (0.2-1.2); Eosinophils Absolute Auto 0.2 K/mm3 (0-0.3); Hematocrit 29.5 % (42.0-52.0); Hemoglobin 8.4 g/dL (14.0-18.0); Immature Granulocyte Absolute 0.03 K/mm3 (0.00-0.031); Immature Granulocyte Percent A 0.6 % (0-0.5); Lymphocytes Percent Auto 10.4 % (18.3-44.2); Mean Corpuscular HGB Conc 28.5 g/dl (32-36); Mean Corpuscular Hemoglobin 24.2 pg (26-34); Monocytes Absolute Auto 0.8 K/mm3 (0.1-0.6); Neutrophils Absolute Auto 3.3 K/mm3 (1.3-6.7); Neutrophils Percent Auto 67.8 % (45.5-73.1); Platelet Count Result 201 k/mm3 (150-375); Red Blood Count 3.47 M/mm3 (4.6-6.20); White Blood Count 4.8 K/mm3 (4.5-10.0)
[2021-03-02 11:00] LABS: Hypochromasia 3+ (NORMAL); Ovalocytes 2+ (NORMAL); Platelet Estimate Adequate (Adequate)
[2021-03-02 11:01] LABS: Stomatocytes 2+ (NORMAL)
--- NOTE | 2021-03-02 11:18 | PM.CNNEP ---
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 relative hypotension follow-up on renal ultrasound check urine electrolytes (may be skewed by the fact he was on outpatient diuretics) CPK okay follow trend of repeat labs and UOP (2) Acute hyperkalemia: Code(s): E87.5 - Hyperkalemia Status: Acute Assessment and Plan: resolving due to VALENTINE, potassium supplements, and JAXON-I use follow trend of repeat labs (3) Hypertension: Code(s): I10 - Essential (primary) hypertension Status: Chronic Assessment and Plan: running on the soft side since admission holding BP medications at this time follow trend of hemodynamics (4) Type 2 diabetes mellitus: Code(s): E11.9 - Type 2 diabetes mellitus without complications Status: Chronic Assessment and Plan: follow accuchecks glycemic control Will continue to follow. History of Present Illness Reason for Consult Consult date: 03/02/21 Reason for consult: acute renal failure and hyperkalemia Chief Complaint Chief complaint: Hyperkalemia History of Present Illness Narrative: The patient is an 80-year-old male with a past medical history as outlined below who presented to [facility] Emergency room due to abnormal outpatient labs. The patient saw his primary care physician yesterday for routine follow-up of his chronic medical issues and problems and routine blood tests were done at that time. Subsequently, it was discovered that his potassium was quite elevated and he was called by his primary care physician's office to come to the ER for further evaluation. Despite these abnormal laboratory findings, the patient self had no specific complaints or problems prior to his presentation to the emergency room. Workup and evaluation emergency room demonstrated the patient to be hemodynamically stable and in no apparent distress. His outpatient labs reviewed and were no worthy for a potassium of 6.4 as well as a creatinine of 4.3 mg/dL. Labs done earlier this month showed his kidney function be well within normal limits and with no other critical electrolyte abnormalities. On further questioning, the patient did state that he has had decreased oral intake for several days if not longer but was unable to provide a specific reason for this issue/problem. Given his hyperkalemia, he received medical management for this in the form of D50, insulin, albuterol nebulizer treatment, and Kayexalate. He was subsequent admitted to the hospital for further evaluation. Since his admission, repeat labs show his potassium had improved down to 5.6 and by labs this morning, his potassium is in the normal range. It should be noted that on arrival to the floor he was somewhat hypotensive so received IV fluid boluses with improvement in his blood pressure. No other issues or problems were noted overnight or earlier this morning. Renal consultation was requested due to his acute kidney injury/ acute renal failure in association with hyperkalemia. Given his improvement in his kidney function by his a.m. labs, it is suspected that his acute kidney injury is secondary to volume depletion/ poor oral intake. HIS Potassium was likely elevated due to the acute kidney injury but also due the fact that he was apparently taking potassium supplements as well. Furthermore, his outpatient medications include furosemide as well as Enalapril along with metformin which all probably culminated in his worsening kidney function as well. As already mentioned, at baseline, the patient has normal kidney function although he may have some mild degree of renal insufficiency secondary to his history
[2021-03-02 12:01] LABS: Glucose Point of Care 153 mg/dl (65-105)
--- NOTE | 2021-03-02 15:05 | PM.IMPN ---
Progress Note: A&P Assessment and Plan (1) Acute hyperkalemia: Code(s): E87.5 - Hyperkalemia Status: Acute Assessment and Plan: -The patient was given a concoction in the emergency the D50 and the regular insulin. -This could be related to his acute kidney injury, potassium supplements, and JAXON-I use -Typically the patient has low potassium but today it is high. -The patient is typically on a potassium supplement at home so that will be held. -The patient's potassium was 6.4 now is 5.0. 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 -The patient is on metformin at home. That will be held. -Patient's creatinine was 4.3 now 2.8. Slowly improving. Baseline around 1.0 -Hold Lasix at this time. -Renal US unremarkable -Nephrology consulted, appreciate recommendations -Check urine electrolytes (3) Diastolic dysfunction: Code(s): I51.89 - Other ill-defined heart diseases Status: Acute Assessment and Plan: -Patient's blood pressure is soft at this time. -Hold metoprolol (4) Atrial flutter: Code(s): I48.92 - Unspecified atrial flutter Status: Acute Assessment and Plan: -Rate is controlled. -Hold metoprolol at this time, resume when BP stabilizes -Not on anticoagulation due to history of severe PUD bleed and he refuses anticoagulation since. (5) Hypertension: Code(s): I10 - Essential (primary) hypertension Status: Acute Assessment and Plan: -Patient is hypotensive at this time. -Hold all hypertensive medication. (6) Type 2 diabetes mellitus: Code(s): E11.9 - Type 2 diabetes mellitus without complications Status: Chronic Assessment and Plan: -Accu-Cheks AC and HS. -hold metformin -Sliding scale insulin Subjective Date/time seen: 03/02/21 15:05 Objective Data Vital Signs Vital Signs: Vital Signs - 24 hr 03/01/21 19:15 03/01/21 19:16 03/01/21 19:31 Temperature Pulse Rate 64 68 Respiratory Rate 16 14 Blood Pressure 117/88 86/47 L Pulse Oximetry 97 96 03/01/21 20:00 03/01/21 20:24 03/01/21 23:04 Temperature Pulse Rate 64 65 66 Respiratory Rate 18 18 Blood Pressure 81/43 L 98/59 L Pulse Oximetry 96 98 03/02/21 00:00 03/02/21 00:23 03/02/21 04:00 Temperature 97.3 F L Pulse Rate 64 69 64 Respiratory Rate 14 16 Blood Pressure 99/58 L 89/40 L Pulse Oximetry 95 96 03/02/21 08:00 03/02/21 15:01 Temperature 98.6 F Pulse Rate 64 105 H Respiratory Rate 16 16 Blood Pressure 128/74 Pulse Oximetry 96 96 Intake/Output Intake/Output: Intake & Output 02/27/21 02/28/21 03/01/21 03/02/21 23:59 23:59 23:59 23:59 Intake Total 1500 1080 Balance 1500 1080 Meds/Results Medications: Active Medications Generic Name Dose Route Start Last Admin Trade Name Rubensq PRN Reason Stop Dose Admin Dextrose 12.5 gm 03/02/21 00:02 Dextrose 50% 25 Gm/50 Ml Syringe IV PUSH PRN PRN Hypoglycemia Protocol Glucagon 1 mg 03/02/21 00:02 Glucagon For Inj 1 Mg Vial IM PRN PRN Hypoglycemia Protocol Glucose 15 gm 03/02/21 00:02 Glucose Oral Gel 15 Gm Of Glucse In 37.5 Gm Tube PO PRN PRN Hypoglycemia Protocol Dextrose 1,000 mls @ 100 mls/hr 03/02/21 00:02 Dextrose 5% 1,000 Ml IVPB PRN PRN Hypoglycemia Protocol Sodium Chloride 1,000 mls @ 100 mls/hr 03/02/21 00:05 03/02/21 03:47 Normal Saline Iv IV CONT 100 mls/hr .Q10H REHAN Administration Insulin Aspart 2 - 5 units 03/02/21 08:00 03/02/21 12:48 Insulin Aspart (*Bkc) 100 Units/Ml SUB-Q Not Given TIDWM REHAN Protocol Radiology Results: ITS Impressions Renal Ultrasound
[2021-03-02 16:51] LABS: Glucose Point of Care 138 mg/dl (65-105)
[2021-03-02 21:33] LABS: Glucose Point of Care 155 mg/dl (65-105)
[2021-03-03] MEDS: SODIUM CHLORIDE 0.9% IV 1,000 ML 100 ML IV CONT (05:23)
[2021-03-03 06:00] VITALS: BP 116/74; PULSE 73; RESP 16; TEMP 36.4; O2SAT 100
[2021-03-03 07:48] LABS: Basophils Percent Auto 0.4 % (0.2-1.2); Eosinophils Absolute Auto 0.3 K/mm3 (0-0.3); Eosinophils Percent Auto 4.8 % (0-4.4); Hematocrit 27.4 % (42.0-52.0); Hemoglobin 7.9 g/dL (14.0-18.0); Immature Granulocyte Absolute 0.03 K/mm3 (0.00-0.031); Immature Granulocyte Percent A 0.6 % (0-0.5); Lymphocytes Absolute Auto 0.45 K/mm3 (0.9-3.2); Lymphocytes Percent Auto 8.3 % (18.3-44.2); Mean Corpuscular HGB Conc 28.8 g/dl (32-36); Mean Corpuscular Volume 83.3 fl (80-100); Mean Platelet Volume 11.1 fl (7.4-10.4); Monocytes Absolute Auto 0.8 K/mm3 (0.1-0.6); Monocytes Percent Auto 15.3 % (2.6-8.5); Neutrophils Absolute Auto 3.8 K/mm3 (1.3-6.7); Neutrophils Percent Auto 70.6 % (45.5-73.1); Platelet Count Result 194 k/mm3 (150-375); Red Blood Count 3.29 M/mm3 (4.6-6.20); Red Cell Distribution Width 19.7 % (11.5-14.5); White Blood Count 5.4 K/mm3 (4.5-10.0)
[2021-03-03 08:00] VITALS: BP 121/56; PULSE 72; PULSE 74; RESP 18; TEMP 36.6; O2SAT 100
[2021-03-03 08:08] LABS: Alanine Aminotransferase 11 U/L (4-50); Alkaline Phosphatase 114 U/L (38-126); Anion Gap 2 mmol/L (8-16); Aspartate Amino Transferase 20 U/L (17-59); Bilirubin,Total 0.5 mg/dL (0.2-1.3); Blood Urea Nitrogen 30 mg/dL (9-20); Carbon Dioxide 33 mmol/L (22-30); Chloride 100 mmol/L (98-107); Estimated CRCL calculation 45 ml/min; Estimated Glomerular Filt Rate 58; Glucose 112 mg/dL (65-110); Potassium 4.5 mmol/L (3.4-5.0); Sodium 135 mmol/L (137-145)
[2021-03-03 09:00] LABS: Platelet Estimate Adequate (Adequate)
[2021-03-03 09:01] LABS: Hypochromasia 3+ (NORMAL); Ovalocytes 2+ (NORMAL)
[2021-03-03 09:02] LABS: Anisocytosis 2+ (NORMAL); Helmet Cells 1+ (NORMAL); Polychromasia 1+ (NORMAL); Tear Drop Cells 2+ (NORMAL)
--- NOTE | 2021-03-03 09:16 | PM.IMPN ---
Progress Note: A&P Assessment and Plan (1) Acute hyperkalemia: Code(s): E87.5 - Hyperkalemia Status: Acute Assessment and Plan: -The patient was given a concoction in the emergency the D50 and the regular insulin. Started on IVFs. -This could be related to his acute kidney injury, potassium supplements, metformin and JAXON-I use -Typically the patient has low potassium but today it is high. -The patient is typically on a potassium supplement at home so that will be held. -The patient's potassium was 6.4 now , then 5 , and 4.5 today. -Phosphorus was elevated at admission 5.7, today is now 2.3. Sodium 135 today. -restarted home lasix dose today at half; stopped IVFs today; restarting home BB, discontinued JAXON-I as BP is controlled without it. -repeat labs in morning. 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 -UA clear except 1+ ketones at admission. -The patient is on metformin at home - discontinued. -Patient's creatinine was 4.3 now 2.8. Slowly improving. Todays 1.2. Baseline around 1.0 -Hold Lasix at admission, restarted today at half dose. -Renal US unremarkable -Nephrology consulted, appreciate recommendations -Check urine electrolytes strict I/Os. (3) Diastolic dysfunction: Code(s): I51.89 - Other ill-defined heart diseases Status: Acute Assessment and Plan: -Patient's blood pressure is soft at this time. -Hold metoprolol VS Q 4 hours daily weights, strict I/Os. checking BNP -restarted home lasix dose today at half; stopped IVFs today; restarting home BB, discontinued JAXON-I as BP is controlled without it. (4) Atrial flutter: Code(s): I48.92 - Unspecified atrial flutter Status: Acute Assessment and Plan: -Rate is controlled. -Hold metoprolol at admission, restarted today at half dose. -Not on anticoagulation due to history of severe PUD bleed and he refuses anticoagulation since. -on low dose ASA (5) Hypertension: Code(s): I10 - Essential (primary) hypertension Status: Acute Assessment and Plan: -Patient is hypotensive at this time. -Hold all hypertensive medication. (6) Type 2 diabetes mellitus: Code(s): E11.9 - Type 2 diabetes mellitus without complications Status: Chronic Assessment and Plan: -Accu-Cheks AC and HS. -hold metformin -Sliding scale insulin -glucose 107-155 over last 24 hours. -well controlled without meds. -controlled with diet at this time and his A1C was 5.0 on 2020. (7) Iron deficiency anemia: Code(s): D50.9 - Iron deficiency anemia, unspecified Status: Acute Assessment and Plan: Hgb 7.9 and Hct 27.4 today, Pts 194; no s/s of active bleeding. was on iron supplementation at home, continued oral iron checking Iron Panel with labs. on low dose ASA no anticoagulation stop IVFs, low dose diuresis, repeat labs in morning Subjective Date/time seen: 03/03/21 09:16 Zack was feeling better today, but pointed out his right arm where the IVFs were flowing was pretty swollen. We will discontinue the IVFs at this time, his creatinine has greatly improved from 4.3 to 1.2 today. Appreciate Electronics Technician Apprentice consultation and recommendations. Zack is hoping for discharge tomorrow in the morning, pending restarting his home medications today to monitor VS. His current BPs are controlled, so will continue to hold/discontinue his JAXON-I enalapril, will restart his Metoprolol at half dose from 25 to 12.5 mg Q12 hour, discontinued his Metformin as his glucose levels are well controlled with diet at this time and his A1C was 5.0 on 2020. He uses a cane and has it here with him, will order PT/OT. Zack iseating and drinking now without any
[2021-03-03 10:00] VITALS: O2SAT 100
--- NOTE | 2021-03-03 11:33 | PM.PNNEP ---
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 hypotension renal ultrasound okay CPK okay follow trend of repeat labs and UOP (2) Acute hyperkalemia: Code(s): E87.5 - Hyperkalemia Status: Resolved Assessment and Plan: resolved due to VALENTINE, potassium supplements, and JAXON-I use follow trend of repeat labs (3) Hypertension: Code(s): I10 - Essential (primary) hypertension Status: Chronic Assessment and Plan: running on the soft side since admission but better now holding BP medications with parameters at this time - slowly restart as tolerated follow trend of hemodynamics (4) Type 2 diabetes mellitus: Code(s): E11.9 - Type 2 diabetes mellitus without complications Status: Chronic Assessment and Plan: follow accuchecks on SSI Will continue to follow. Subjective Date/time seen: 03/03/21 11:33 Appears to be doing reasonable well at the time of my visit; creatinine/kidney function has improved significantly in the last 48 hours; eating and drinking okay and now having some issues with generalized edema so IVF discontinued today; no other issues/events overnight or earlier today. Exam Narrative: General: WD/WN male in NAD Heart: normal S1 and S2; no rub Lungs: clear to auscultation Abdomen: soft, nontender, nondistended, positive bowel sounds Extremities: no cyanosis or clubbing; trace - 1+ edema Skin: warm and dry Objective Data Vital Signs Vital Signs: Vital Signs Temp Pulse Resp BP Pulse Ox 03/03/21 10:00 100 03/03/21 08:00 36.6 C 72 18 121/56 L 100 03/03/21 06:00 36.4 C L 73 16 116/74 100 03/02/21 22:00 36.2 C L 72 18 112/62 98 03/02/21 20:00 95 03/02/21 16:00 68 03/02/21 15:56 36.6 C 72 16 110/83 97 Intake/Output Intake/Output: Intake & Output 02/28/21 03/01/21 03/02/21 03/03/21 23:59 23:59 23:59 23:59 Intake Total 1500 3540 480 Output Total 1150 1300 Balance 1500 2390 -820 Meds/Results Medications: Active Medications Generic Name Dose Route Start Last Admin Trade Name Rubensq PRN Reason Stop Dose Admin Aspirin 81 mg 03/04/21 08:00 Aspirin 81 Mg Chewable Tablet PO DAILY@0800 REHAN Dextrose 12.5 gm 03/02/21 00:02 Dextrose 50% 25 Gm/50 Ml Syringe IV PUSH PRN PRN Hypoglycemia Protocol Donepezil HCl 5 mg 03/03/21 21:00 Donepezil Hcl 5 Mg Tablet PO HS REHAN Furosemide 40 mg 03/04/21 09:00 Furosemide 40 Mg Tablet PO DAILY REHAN Glucagon 1 mg 03/02/21 00:02 Glucagon For Inj 1 Mg Vial IM PRN PRN Hypoglycemia Protocol Glucose 15 gm 03/02/21 00:02 Glucose Oral Gel 15 Gm Of Glucse In 37.5 Gm Tube PO PRN PRN Hypoglycemia Protocol Dextrose 1,000 mls @ 100 mls/hr 03/02/21 00:02 Dextrose 5% 1,000 Ml IVPB PRN PRN Hypoglycemia Protocol Insulin Aspart 2 - 5 units 03/02/21 08:00 03/03/21 12:24 Insulin Aspart (*Bkc) 100 Units/Ml SUB-Q Not Given TIDWM [facility] Protocol Magnesium Oxide 400 mg 03/03/21 17:00 Magnesium Oxide 400 Mg Tablet PO BID [facility] Metoprolol Tartrate 12.5 mg 03/03/21 21:00 Metoprolol Tartrate 12.5 Mg Tablet PO Q12HR [facility] Pantoprazole Sodium 40 mg 03/04/21 09:00 Pantoprazole 40 Mg Tablet PO DAILY [facility] Polysaccharide Iron Complex 150 mg 03/03/21 17:00 Polysaccharide Iron Complex 150 Mg Capsule PO BIDWM REHAN Pregabalin 75 mg 03/03/21 13:00 03/03/21 12:26 Pregabalin (*Crx) 75 Mg Capsule PO 75 mg TID [facility] Administration Tamsulosin HCl 0.4 mg 03/04/21 09:00 Tamsulosin Hcl 0.4 Mg Capsule PO INDER
[2021-03-03 12:00] VITALS: BP 117/58; PULSE 72; PULSE 74; RESP 16; TEMP 36.2; O2SAT 99
[2021-03-03 12:19] LABS: Glucose Point of Care 131 mg/dl (65-105)
[2021-03-03 12:21] LABS: Phosphorus 2.3 mg/dL (2.5-4.5)
[2021-03-03 12:22] LABS: Glucose Point of Care 107 mg/dl (65-105)
[2021-03-03] MEDS: PREGABALIN (*CRX) 75 MG CAPSULE PO ×2 (12:26→16:00)
[2021-03-03 12:31] LABS: NT Pro B Type Natriuretic Pept 5220 pg/mL (5-100)
[2021-03-03 12:32] LABS: Iron 18 ug/dL (49-181)
[2021-03-03 12:42] LABS: Percent Iron Saturation 4 % (20-50)
[2021-03-03 16:00] VITALS: BP 129/61; PULSE 75; PULSE 78; RESP 16; TEMP 36.3; O2SAT 100
[2021-03-03] MEDS: MAGNESIUM OXIDE 400 MG TABLET PO (16:00)
[2021-03-03] MEDS: POLYSACCHARIDE IRON COMPLEX 150 MG CAPSULE PO (16:00)
[2021-03-03 16:38] LABS: Glucose Point of Care 136 mg/dl (65-105)
[2021-03-03] MEDS: DONEPEZIL HCL 5 MG TABLET PO (20:48)
[2021-03-03] MEDS: METOPROLOL TARTRATE 12.5 MG TABLET PO (20:48)
[2021-03-03 22:00] VITALS: BP 116/62; PULSE 73; RESP 18; TEMP 36.6; O2SAT 100
[2021-03-03 22:10] LABS: Glucose Point of Care 119 mg/dl (65-105)
[2021-03-04 05:35] VITALS: BP 120/64; PULSE 65; RESP 18; TEMP 36.9; O2SAT 99
[2021-03-04 06:15] LABS: Basophils Percent Auto 0.2 % (0.2-1.2); Eosinophils Absolute Auto 0.2 K/mm3 (0-0.3); Eosinophils Percent Auto 4.2 % (0-4.4); Hematocrit 28.4 % (42.0-52.0); Hemoglobin 8.1 g/dL (14.0-18.0); Immature Granulocyte Absolute 0.02 K/mm3 (0.00-0.031); Immature Granulocyte Percent A 0.4 % (0-0.5); Lymphocytes Absolute Auto 0.52 K/mm3 (0.9-3.2); Mean Corpuscular HGB Conc 28.5 g/dl (32-36); Mean Corpuscular Hemoglobin 23.9 pg (26-34); Mean Corpuscular Volume 83.8 fl (80-100); Mean Platelet Volume 11.7 fl (7.4-10.4); Monocytes Absolute Auto 0.9 K/mm3 (0.1-0.6); Neutrophils Absolute Auto 3.6 K/mm3 (1.3-6.7); Neutrophils Percent Auto 68.2 % (45.5-73.1); Platelet Count Result 195 k/mm3 (150-375); Red Blood Count 3.39 M/mm3 (4.6-6.20); Red Cell Distribution Width 19.4 % (11.5-14.5); White Blood Count 5.2 K/mm3 (4.5-10.0)
[2021-03-04 06:18] LABS: Alanine Aminotransferase 10 U/L (4-50); Albumin Level 3.2 g/dL (3.5-5.1); Alkaline Phosphatase 107 U/L (38-126); Anion Gap 2 mmol/L (8-16); Aspartate Amino Transferase 18 U/L (17-59); Bilirubin,Total 0.6 mg/dL (0.2-1.3); Blood Urea Nitrogen 14 mg/dL (9-20); Calcium 8.3 mg/dL (8.4-10.2); Carbon Dioxide 32 mmol/L (22-30); Chloride 97 mmol/L (98-107); Estimated CRCL calculation 77 ml/min; Estimated Glomerular Filt Rate > 60; Glucose 111 mg/dL (65-110); Potassium 4.3 mmol/L (3.4-5.0); Sodium 131 mmol/L (137-145)
[2021-03-04 06:21] LABS: NT Pro B Type Natriuretic Pept 5810 pg/mL (5-100)
[2021-03-04 06:57] LABS: Anisocytosis 2+ (NORMAL); Hypochromasia 1+ (NORMAL); Ovalocytes 1+ (NORMAL); Platelet Estimate Adequate (Adequate)
[2021-03-04 07:45] LABS: Glucose Point of Care 110 mg/dl (65-105)
[2021-03-04 08:00] VITALS: BP 116/58; BP 120/68; PULSE 63; PULSE 70; RESP 18; TEMP 35.7; TEMP 36.6; O2SAT 100; O2SAT 99
[2021-03-04 08:30] VITALS: PULSE 68
[2021-03-04] MEDS: POLYSACCHARIDE IRON COMPLEX 150 MG CAPSULE PO (08:30)
[2021-03-04] MEDS: ASPIRIN 81 MG CHEWABLE TABLET PO (08:30)
[2021-03-04] MEDS: TAMSULOSIN HCL 0.4 MG CAPSULE PO (08:30)
[2021-03-04] MEDS: METOPROLOL TARTRATE 12.5 MG TABLET PO (08:30)
[2021-03-04] MEDS: PANTOPRAZOLE 40 MG TABLET PO (08:30)
[2021-03-04] MEDS: MAGNESIUM OXIDE 400 MG TABLET PO (08:30)
[2021-03-04] MEDS: FUROSEMIDE 40 MG TABLET PO (08:30)
[2021-03-04] MEDS: PREGABALIN (*CRX) 75 MG CAPSULE PO ×2 (08:32→13:36)
[2021-03-04 11:17] LABS: Glucose Point of Care 119 mg/dl (65-105)
[2021-03-04 11:18] VITALS: BP 112/68; PULSE 64; RESP 18; TEMP 35.7; O2SAT 99
[2021-03-04 11:19] VITALS: BP 111/59; PULSE 67; RESP 18; TEMP 35.7; O2SAT 99
[2021-03-04 11:41] VITALS: BP 116/58; PULSE 63; RESP 18; TEMP 35.7; O2SAT 100
--- NOTE | 2021-03-04 14:56 | PM.DS ---
DS: Admitting Diagnosis Discharge Date 03/05/21 Admitting Diagnosis VALENTINE, hyperkalemia DS: Discharge Diagnosis Discharge Diagnosis (1) Acute hyperkalemia: Code(s): E87.5 - Hyperkalemia Status: Resolved Assessment and Plan: Potassium 6.4 on presentation. Likely related to VALENTINE in the setting of JAXON-inhibitor use in conjunction with potassium supplementation, metformin. Potassium levels improved with appropriate treatment. Potassium levels stabilize and was 4.3 at time of discharge. Potassium supplements, JAXON-inhibitor, and metformin discontinued. Repeat BMP in 1 week for further monitoring (2) VALENTINE (acute kidney injury): Code(s): N17.9 - Acute kidney failure, unspecified Status: Acute Assessment and Plan: Likely related to volume depletion, exacerbated by medication use as described above. No evidence of infection on UA. Creatinine was 4.3 on presentation. He was seen in consultation by nephrology. His medications were held in creatinine levels normalized. 0.7 at time of discharge. JAXON-inhibitor and metformin discontinued. Lasix decreased to 40 mg daily. Renal ultrasound showed normal kidneys without hydronephrosis. Repeat BMP in 1 week to ensure remaining stable (3) Diastolic dysfunction: Code(s): I51.89 - Other ill-defined heart diseases Status: Acute Assessment and Plan: Last echo 02/16/2021 with normal EF 55-60% with grade 2 diastolic dysfunction. He was euvolemic on exam. Lasix was initially held due to VALENTINE and resumed at 40 mg daily. JAXON-inhibitor was discontinued as above and he will need to follow-up with his advertising strategist. (4) Atrial flutter: Code(s): I48.92 - Unspecified atrial flutter Status: Acute Assessment and Plan: Chronic. Rate remained controlled. Metoprolol was held due to low blood pressure and restarted at lower dose, 12.5 mg b.i.d.. He tolerated this dose and rate remained stable. He is not on anticoagulation due to history of PUD with GI bleeding and has refused anticoagulation since. He is on low-dose aspirin daily (5) Hypertension: Code(s): I10 - Essential (primary) hypertension Status: Acute Assessment and Plan: Blood pressures were soft initially, likely due to volume depletion. His antihypertensives were held. Metoprolol was resumed at 12.5 mg b.i.d. and blood pressures remained stable with this regimen alone. Encourage monitoring of BP at home and follow-up with PCP (6) Type 2 diabetes mellitus: Code(s): E11.9 - Type 2 diabetes mellitus without complications Status: Chronic Assessment and Plan: His A1c is 5.0. Metformin was discontinued as he is clearly well controlled with diet. Continue to monitor blood sugars at home with meals and at bedtime. (7) Iron deficiency anemia: Code(s): D50.9 - Iron deficiency anemia, unspecified Status: Acute Assessment and Plan: Hemoglobin and hematocrit consistent with baseline. Continue ferrous sulfate. DS: Summary Hospital Course Hospital Course: Date of admission: 03/01/2021 Date of discharge: 03/04/2021 Ana Cristina henry is an 80-year-old male with a history of chronic respiratory failure on 3 L supplemental O2, CHF, CAD, hypertension, iron deficiency anemia, type 2 diabetes mellitus, paroxysmal atrial fibrillation who presented to the emergency department on 03/01/2021 after being found to have elevated potassium on outpatient labs. His primary care provider instructed him to come to the ER. On presentation, his BP was elevated with additional vital signs stable, sodium 129, potassium 6.4, BUN 53, creatinine 4.3. He was admitted to the hospitalist service for further evaluation management and was seen in consultation by nephrology. Please see above for further details. Potassium levels normalized with treatment and his renal function returned to baseline. His medications were adjusted as d
[2021-03-05 22:06] LABS: Anti Glomerular Basement Memb <1.0 AI (<1.0)
[2021-03-06 10:20] LABS: Anti Streptolysin O Screen <50 IU/mL (<200)
[2021-03-06 17:55] LABS: Complement Total CH50 59 U/mL (31-60)
[2021-03-06 20:40] LABS: Albumin 3.3 g/dL (3.8-4.8); Alpha 1 Globulin 0.3 g/dL (0.2-0.3); Alpha 2 Globulin 0.6 g/dL (0.5-0.9); Beta 1 Globulin 0.5 g/dL (0.4-0.6); Gamma Globulin 0.9 g/dL (0.8-1.7); Protein, Total 5.8 g/dL (6.1-8.1)
[2021-03-06 21:25] LABS: SM Antibody <1.0; SM/RNP Antibody <1.0
[2021-03-08 22:33] LABS: ANCA Screen Negative (Negative)
== END 2021-03-04 15:40 | disposition home or self-care (01) | DRG 683 ==
LOC: ANHED 16:41 → ANH3MEDSUR 20:48
PROVIDERS: Nurse Practitioner; Physician Assistant; Admitting Provider Internal Medicine; Emergency Provider Emergency Medicine; PCP Internal Medicine; Visit Provider Physician Assistant
DX: N17.9 Acute kidney failure, unspecified (principal); J96.11 Chronic respiratory failure with hypoxia; I48.92 Unspecified atrial flutter; E87.5 Hyperkalemia; E86.9 Volume depletion, unspecified; I95.9 Hypotension, unspecified; Z86.73 Personal history of transient ischemic attack (TIA), and cerebral infarction without residual deficits; M19.90 Unspecified osteoarthritis, unspecified site; N40.0 Benign prostatic hyperplasia without lower urinary tract symptoms; Z99.81 Dependence on supplemental oxygen; G89.29 Other chronic pain; I25.10 Atherosclerotic heart disease of native coronary artery without angina pectoris; K21.9 Gastro-esophageal reflux disease without esophagitis; Z87.11 Personal history of peptic ulcer disease; I11.0 Hypertensive heart disease with heart failure; I50.9 Heart failure, unspecified; D50.9 Iron deficiency anemia, unspecified; I27.20 Pulmonary hypertension, unspecified; I48.0 Paroxysmal atrial fibrillation; M48.00 Spinal stenosis, site unspecified; E11.9 Type 2 diabetes mellitus without complications; Z79.84 Long term (current) use of oral hypoglycemic drugs; Z87.891 Personal history of nicotine dependence; Z79.82 Long term (current) use of aspirin
CPT/HCPCS: 36415; 76775; 80048; 80053; 80069; 82550; 82595; 82947; 82948; 83520; 83540; 83550; 83735; 83880; 83930; 84100; 84155; 84165; 84443; 85025; 85652; 86021; 86038; 86060; 86140; 86160; 86162; 86215; 86225; 86235; 86334; 86703; 86705; 86706; 86803; 87340; 93005; 96374; 96375; 97162; 97165; 99285; A9270; G0432; J1815; J7030; J7040

== ENCOUNTER 2021-03-08 13:18 | Observation (INO) | payer MEDICARE, MEDICAID, SELFPAY ==
[2021-03-08] VITALS (8 sets, daily range): BP systolic 97–111; BP diastolic 45–76; PULSE 61–78; RESP 12–20; TEMP 36.1–36.7; O2SAT 94–100; BMI 32.1
--- NOTE | ~2021-03-08 | CT_ITS ---
EXAMINATION: CT brain wo con DATE: 03/08/2021 13:52 INDICATION: Syncope, weakness. Falls. Tremors. TECHNIQUE: Computed tomography (CT) of the head was performed without intravenous contrast. The mA wa s adjusted according to patient size. Iterative reconstruction technique was employed. Exam dose: 68 1.00 mGy-cm total exam DLP. COMPARISON: None FINDINGS: Vertebral and carotid siphon internal carotid artery calcifications are noted. There is a small calcified meningioma along the right side of the anterior falx in the right frontal area. No intracranial mass lesion or hemorrhage. There is chronic infarct in the posteromedial right occipi ana laura lobe. No recent cerebrovascular accident is detected. There is prominent cerebral volume loss/cerebral cortical atrophy. No subdural or epidural hematoma. The mastoid air cells are normally developed and aerated. There is moderately prominent mucoperiostea l thickening of the right maxillary sinus. No fracture or bone destruction of the cranial vault is detected. IMPRESSION: Cerebral atherosclerosis and chronic small vessel ischemic changes of the cerebral white matter Small chronic right occipital infarct Small right anterior falx calcified meningioma No acute intracranial finding Reviewed, dictated and finalized at [facility]. Reviewed, dictated and finalized at [facility]. DING DRAFTER
--- NOTE | ~2021-03-08 | XR_ITS ---
XR ribs LT 2V w CXR 2V DATE: 03/08/2021 14:04 INDICATION: Injury, left rib pain TECHNIQUE: 2 views. 3 views of the left ribs. COMPARISON: None FINDINGS: Anterolateral left fifth and sixth minimally displaced rib fractures. Diffuse osteopenia. There is severe osteoarthritic change at both glenohumeral joints. Cardiomegaly. Aortic calcification, ectasia and unfolding. There is mild elevation of the left leaf of the diaphragm. There is mild atelectasis at the left lung base. The lungs are otherwise clear. IMPRESSION: Left 5th and 6th rib fractures and minimal atelectasis at the left lung base Reviewed, dictated and finalized at [facility]. [employer]
--- NOTE | 2021-03-08 13:29 | ECG_ITS ---
Measurements Intervals [place] Rate: 69 P: -83 [place]: 203 QRS: 98 QRSD: 110 T: 35 QT: 458 QTc: 491 Interpretive Statements SINUS RHYTHM WITH SINUS ARRHYTHMIA WITH FIRST DEGREE AV BLOCK ATRIAL PREMATURE COMPLEX RIGHT AXIS DEVIATION LOW QRS VOLTAGE IN LIMB LEADS CANNOT RULE OUT SEPTAL INFARCT, AGE INDETERMINATE BORDERLINE T WAVE ABNORMALITY- ANTEROLAT/INF LEADS BASELINE ARTIFACT- II, III, AVR, AVL, AVF, V1, V4-V6 ABNORMAL ECG Electronically Signed On 03-08-2021 16:57:31 [employer]SEM[employer] by Waqas Shankar D.O.
--- NOTE | 2021-03-08 13:40 | ED.WEAKNESS ---
HPI - Weakness General Chief complaint: Weakness Stated complaint: FALL Time Seen by Provider: 03/08/21 13:31 Source: patient Mode of arrival: EMS Limitations: no limitations History of Present Illness HPI Narrative: Patient is an 80-year-old male complaining of generalized weakness leading to falling twice today at home. Patient states that he is having left rib pain from when he fell and landed on his left side. Patient also states that he had a syncopal episode at home. Patient denies any chest pain, shortness of breath, abdominal pain, nausea, vomiting, diaphoresis, fever or chills. Patient is alert and oriented x3. Related Data Home Medications Medication Instructions Recorded Confirmed Nuedexta See Rx Instructions .ROUTE .COMPLEX 10/24/20 03/02/21 pantoprazole 40 mg PO DAILY 10/24/20 03/02/21 pregabalin 75 mg PO TID 10/24/20 03/02/21 tamsulosin 0.4 mg PO DAILY 10/24/20 03/02/21 ferrous sulfate 4 ml PO DAILY 12/11/20 03/02/21 Allergies Allergy/AdvReac Type Severity Reaction Status Date / Time No Known Allergies Allergy Verified 03/08/21 13:30 Review of Systems Review of Systems: All systems reviewed & are unremarkable except as noted in HPI and below Constitutional: Constitutional: Denies body ache(s), Denies chills, Denies excessive sweating, Denies fatigue, Denies fever(s), Denies headache(s), Denies lethargy, Denies malaise, Reports weakness and Denies weight loss Eyes: Eyes: Denies blurry vision, Denies change in vision and Denies loss of vision ENT: Denies dizziness, Denies ear discharge, Denies headache(s), Denies lip swelling, Denies epistaxis, Denies nasal congestion, Denies neck pain, Denies throat swelling and Denies tongue swelling Cardiovascular: Cardiovascular: Denies chest pain, Denies chest pain at rest, Denies chest pain with activity, Denies diaphoresis, Denies rapid heart rate, Denies edema, Denies irregular heart rhythm, Denies lightheadedness, Denies palpitations, Denies dyspnea and Denies dyspnea on exertion Respiratory: Respiratory: Denies chest congestion, Denies cough, Denies hemoptysis, Denies dyspnea and Denies dyspnea on exertion Gastrointestinal: Gastrointestinal: Denies abdominal pain, Denies melena, Denies hematochezia, Denies diarrhea, Denies nausea, Denies vomiting and Denies hematemesis Musculoskeletal: Musculoskeletal: Denies abnormal gait, Denies deformity, Denies joint swelling, Denies limited range of motion, Denies neck pain and Denies numbness Neurologic: Denies Abnormal speech present, Denies abnormal gait, Denies confusion, Denies dizziness, Denies headache(s), Denies focal weakness, Denies loss of vision, Denies numbness, Denies Other visual disturbances, Denies Sensory deficit (Neuro) and Denies weakness Psychiatric: Psychiatric: Denies confusion, Denies depression, Denies auditory hallucinations, Denies homicidal ideation and Denies suicidal ideation Endocrine: Endocrine: Denies cold intolerance, Denies excessive sweating, Denies fatigue, Denies heat intolerance and Denies palpitations Hematologic/Lymphatic: Hematologic/Lymphatic: Denies easy bleeding and Denies easy bruising Allergic/Immunologic: Allergic/Immunologic: Denies lip swelling, Denies throat swelling and Denies tongue swelling PMFSH Past Medical History Medical History Anemia Arthritis Benign prostatic hyperplasia Cerebrovascular accident 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 Chronic anemia Chronic pain Patient had a pain pump inserted in February 2019. Chronic respiratory failure with hypoxia, on home oxygen therapy Baseline oxygen requirement is 3 L nasal cannula. Congestive heart failure Echocardiogram on 10/25/2020 showed preserved LV systolic function with an estimated EF of 50 to 55% and abnormal diastolic function. With repeat limited echocardiogram 11/2020 demonstrated EF of 40 45% and abnormal diastolic functi
[2021-03-08 13:48] LABS: Basophils Absolute Auto 0.1 K/mm3 (0.0-0.1); Basophils Percent Auto 0.4 % (0.2-1.2); Eosinophils Absolute Auto 0.1 K/mm3 (0-0.3); Eosinophils Percent Auto 0.4 % (0-4.4); Hematocrit 32.5 % (42.0-52.0); Hemoglobin 9.3 g/dL (14.0-18.0); Immature Granulocyte Absolute 0.11 K/mm3 (0.00-0.031); Immature Granulocyte Percent A 0.8 % (0-0.5); Lymphocytes Absolute Auto 0.63 K/mm3 (0.9-3.2); Lymphocytes Percent Auto 4.6 % (18.3-44.2); Mean Corpuscular HGB Conc 28.6 g/dl (32-36); Mean Corpuscular Hemoglobin 23.5 pg (26-34); Mean Corpuscular Volume 82.1 fl (80-100); Mean Platelet Volume 10.7 fl (7.4-10.4); Monocytes Absolute Auto 1.1 K/mm3 (0.1-0.6); Monocytes Percent Auto 8.1 % (2.6-8.5); Neutrophils Absolute Auto 11.8 K/mm3 (1.3-6.7); Neutrophils Percent Auto 85.7 % (45.5-73.1); Platelet Count Result 198 k/mm3 (150-375); Red Blood Count 3.96 M/mm3 (4.6-6.20); Red Cell Distribution Width 19.9 % (11.5-14.5); White Blood Count 13.7 K/mm3 (4.5-10.0)
[2021-03-08 14:02] LABS: Alanine Aminotransferase 16 U/L (4-50); Albumin Level 3.8 g/dL (3.5-5.1); Alkaline Phosphatase 148 U/L (38-126); Anion Gap 7 mmol/L (8-16); Aspartate Amino Transferase 30 U/L (17-59); Bilirubin,Total 0.6 mg/dL (0.2-1.3); Blood Urea Nitrogen 38 mg/dL (9-20); Calcium 8.8 mg/dL (8.4-10.2); Carbon Dioxide 32 mmol/L (22-30); Chloride 96 mmol/L (98-107); Estimated CRCL calculation 47 ml/min; Estimated Glomerular Filt Rate 58; Glucose 127 mg/dL (65-110); Potassium 4.1 mmol/L (3.4-5.0); Sodium 135 mmol/L (137-145)
[2021-03-08 14:03] LABS: Hypochromasia 1+ (NORMAL); Platelet Estimate Adequate (Adequate)
[2021-03-08 14:04] LABS: Anisocytosis 2+ (NORMAL); Ovalocytes 1+ (NORMAL)
[2021-03-08 14:32] LABS: Add Urine Microscopic? NO; Appearance Urine Clear (Clear); Bilirubin Urine Negative (Negative); Blood Urine Negative (Negative); Color Urine Straw (Yellow); Glucose Urine UA Negative (Negative); Ketones Urine Negative (Negative); Leukocyte Esterase Ur Negative LEU/UL (Negative); Nitrate Urine Negative (Negative); Protein Urine Negative (Negative); Specific Grav Ur 1.006 (1.001-1.035); Urobilinogen Urine Negative mg/dL (<2.0)
[2021-03-08 14:49] LABS: Troponin I 0.019 ng/mL (0.000-0.034)
[2021-03-08 14:54] LABS: INR 1.2; Prothrombin Time 15.4 Seconds (11.1-14.7)
[2021-03-08 14:55] LABS: Partial Thromboplastin Time 32.6 SECONDS (22.3-36.8)
[2021-03-08] MEDS: LACTATED RINGERS 1,000 ML 999 ML IV CONT (16:13)
--- NOTE | 2021-03-08 17:25 | PC.NURSE ---
Dinner tray ordered at this time. Granddaughter of patient up to date on patient's status and what room patient will be admitted too on the floor.
--- NOTE | 2021-03-08 18:15 | ADMGEN ---
This patient, Zack Orellana, was admitted to Medical Room 248-. Patient/family oriented to hospital policies and general routines including ID bracelet, bed and alarms, visiting hours, pain management, procedures, bathroom and other care routines, personal items, smoking policy, room service/diet, and visiting hours. Information on how to activate the Rapid Response Team has been discussed. Patient/Family are encouraged to report perceived risks to care and to ask questions if they do not understand what they are told or what they should do.
[2021-03-08 18:21] LABS: Glucose Point of Care 114 mg/dl (65-105)
--- NOTE | 2021-03-08 19:15 | PM.IMHP ---
H&P: HPI History of Present Illness Date/Time: 03/08/21 19:15 Chief Complaint: Fall x2. Narrative: This is an 80-year-old male with chronic hypoxic respiratory failure on 3 L nasal cannula, coronary artery disease, congestive heart failure, paroxysmal atrial fibrillation, hypertension, diet-controlled diabetes, and several other comorbidities who presented to the emergency department earlier today from home for evaluation after he suffered 2 falls today. He is well known to the hospitalist service and this will be his 8th admission to the hospital in the last 4 1/2 months and in fact he was most recently discharged on 03/04/2021 after being admitted and treated for acute kidney injury and hyperkalemia attributed to volume depletion/prerenal factors in addition to ongoing use of JAXON inhibitor, diuretics, and metformin as well as relative hypotension. He was cautiously hydrated nephrotoxic agents were avoided and his creatinine was 0.70 at time of discharge. In any event he typically ambulates with a walker and today upon standing he felt lightheaded and believes he may have lost consciousness briefly, causing him to fall onto his left side. He goes on to say that he had another minor fall thereafter though he did not give me any specifics. On arrival to the emergency department he was complaining of some discomfort about the left flank and he was found to have left 5th and 6th rib fractures. Given concerns for the patient's safety, he is being admitted overnight for PT/OT evaluation and possible rehab placement before returning home. At the time my evaluation he has no specific complaints and specifically denies fever, chills, sweats, cold and flu symptoms, vertigo, focal weakness, paresthesias, chest pain, shortness of breath, cough, nausea, vomiting, diarrhea, and dysuria. Review of Systems Review of Systems: Twelve systems were reviewed and are negative except for as per HPI. [facility] Past Medical History Medical History (Updated 03/08/21 @ 21:47 by Ashley Olivo PA-C) Arthritis Benign prostatic hyperplasia Cerebrovascular accident 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 Chronic anemia Chronic pain Patient had a pain pump inserted in February 2019. Chronic respiratory failure with hypoxia, on home oxygen therapy Baseline oxygen requirement is 3 L nasal cannula. Congestive heart failure Echocardiogram on 10/25/2020 showed preserved LV systolic function with an estimated EF of 50 to 55% and abnormal diastolic function. With repeat limited echocardiogram 11/2020 demonstrated EF of 40 45% and abnormal diastolic function. Coronary artery disease Gastroesophageal reflux disease History of bleeding peptic ulcer Hypertension Iron deficiency anemia Receives frequent iron infusions. Moderate pulmonary hypertension Estimated pulmonary arterial systolic pressure was 54 mmHg on echocardiogram dated 10/25/2020. Paroxysmal atrial fibrillation Pseudobulbar affect Spinal stenosis Type 2 diabetes mellitus Hemoglobin A1c was 6.3% on 10/25/2020. Surgical History Surgical History History of bilateral cataract extraction History of hernia repair Family History Family History Father Acute myocardial infarction Sibling Acute myocardial infarction Brain aneurysm Other No problems noted. Mother Breast cancer Social History Social History (Updated 03/08/21 @ 21:39 by Ashley Olivo PA-C) Social History: Healthcare power of consumer attorney: Lennie Cruz, granddaughter. Code status: Full code. Smoking packs per day: 3 Smoking cigarettes per day: 60.0 Years smoked: 40 Smoking pack-years: 120.00 Smoking status: Former smoker Alcohol intake: never Substance use: never Substance use type: does not use Additional living arrangements comments: The patient lives in his
[2021-03-08 19:28] LABS: Alveolar/Arterial O2 Gradient 87.6 mmHg; Carboxyhemoglobin 0.2 % THb (0-2.0); Fractional Inspired Oxygen 30 %; HCO3 ABG 33.4 mEq/l (22.0-26.0); Methemoglobin ABG 0.5 %THb (0-1.5); Oxygen Content ABG 11.7 %vol (16.0-22.0); Oxygen Saturation ABG 88.6 % (95.0-100.0); PCO2 ABG 58.5 mmHg (35.0-45.0); PO2 ABG 57.6 mmHg (80.0-100.0); PO2 FiO2 Ratio Arterial Blood 1.92 %; Total Hemoglobin 9.6 g/dL (12.0-18.0); pH ABG 7.375 (7.350-7.450)
[2021-03-08 19:33] LABS: Device NASAL CANNULA; Liters per Minute 2.5 LPM; Modified Allen's Test Pass; Oxyhemoglobin 86.3 % THb (90.0-100.0); Site Drawn RIGHT RADIAL
[2021-03-08 22:15] LABS: Glucose Point of Care 140 mg/dl (65-105)
[2021-03-08] MEDS: DONEPEZIL HCL 5 MG TABLET PO (23:22)
[2021-03-08] MEDS: PREGABALIN (*CRX) 75 MG CAPSULE PO (23:24)
[2021-03-09] VITALS (15 sets, daily range): BP systolic 97–132; BP diastolic 39–64; PULSE 65–88; RESP 16–20; TEMP 36.1–36.6; O2SAT 96–100
[2021-03-09] MEDS: LACTATED RINGERS 1,000 ML 80 ML IV CONT (00:44)
[2021-03-09] MEDS: PREGABALIN (*CRX) 75 MG CAPSULE PO ×3 (05:16→20:57)
[2021-03-09 05:24] LABS: Hematocrit 29.6 % (42.0-52.0); Hemoglobin 8.5 g/dL (14.0-18.0); Mean Corpuscular HGB Conc 28.7 g/dl (32-36); Mean Corpuscular Hemoglobin 23.3 pg (26-34); Mean Corpuscular Volume 81.1 fl (80-100); Mean Platelet Volume 11.8 fl (7.4-10.4); Platelet Count Result 172 k/mm3 (150-375); Red Blood Count 3.65 M/mm3 (4.6-6.20); Red Cell Distribution Width 19.8 % (11.5-14.5); White Blood Count 8.2 K/mm3 (4.5-10.0)
[2021-03-09 05:37] LABS: Alanine Aminotransferase 13 U/L (4-50); Albumin Level 3.1 g/dL (3.5-5.1); Alkaline Phosphatase 106 U/L (38-126); Anion Gap 3 mmol/L (8-16); Aspartate Amino Transferase 25 U/L (17-59); Bilirubin,Total 0.6 mg/dL (0.2-1.3); Blood Urea Nitrogen 30 mg/dL (9-20); Calcium 8.2 mg/dL (8.4-10.2); Carbon Dioxide 32 mmol/L (22-30); Chloride 99 mmol/L (98-107); Estimated CRCL calculation 54 ml/min; Estimated Glomerular Filt Rate > 60; Glucose 96 mg/dL (65-110); Magnesium 1.3 mg/dL (1.6-2.3); Potassium 3.7 mmol/L (3.4-5.0); Sodium 134 mmol/L (137-145)
[2021-03-09 07:36] LABS: Glucose Point of Care 112 mg/dl (65-105)
[2021-03-09] MEDS: METOPROLOL TARTRATE 12.5 MG TABLET PO (08:06)
[2021-03-09] MEDS: FUROSEMIDE 40 MG TABLET PO (08:07)
[2021-03-09] MEDS: ASPIRIN 81 MG CHEWABLE TABLET PO (08:07)
[2021-03-09] MEDS: MAGNESIUM OXIDE 400 MG TABLET PO ×2 (08:07→16:44)
[2021-03-09] MEDS: TAMSULOSIN HCL 0.4 MG CAPSULE PO (08:07)
[2021-03-09] MEDS: PANTOPRAZOLE 40 MG TABLET PO (08:07)
--- NOTE | 2021-03-09 09:14 | PM.IMPN ---
Progress Note: A&P Assessment and Plan (1) Recurrent falls: Code(s): R29.6 - Repeated falls Status: Acute Assessment and Plan: Reported feeling lightheaded and dizzy today prior falling, and thinks he briefly lost consciousness Fall precautions PT/OT consulted Monitor orthostatic vital signs (2) Syncope and collapse: Code(s): R55 - Syncope and collapse Status: Acute Assessment and Plan: Telemetry overnight to rule out cardiac dysrhythmia, hx nonsustained V-tach Last ECHO 11/2020-->EF 40-45%, diastolic dysfunction Heat CT-->small chronic right occipital infarct, Small right anterior falx calcified meningioma; no acute intracranial finding Will repeat ECHO (3) Multiple rib fractures: Qualifiers: Encounter type: initial encounter Fracture type: closed Laterality: left Qualified Code(s): S22.42XA - Multiple fractures of ribs, left side, initial encounter for closed fracture Code(s): S22.49XA - Multiple fractures of ribs, unspecified side, initial encounter for closed fracture Status: Acute Assessment and Plan: Patient sustained left 5th and 6th rib fractures Analgesics available as needed Encourage incentive spirometry Supportive care (4) Hypertension: Code(s): I10 - Essential (primary) hypertension Status: Chronic Assessment and Plan: Soft Continue BB and Lasix Monitor (5) Congestive heart disease: Code(s): I50.9 - Heart failure, unspecified Status: Acute Assessment and Plan: Clinically compensated Continue BB, ASA, Lasix Continue to monitor volume status closely (6) Chronic respiratory failure with hypoxia, on home oxygen therapy: Code(s): J96.11 - Chronic respiratory failure with hypoxia; Z99.81 - Dependence on supplemental oxygen Status: Acute Assessment and Plan: Currently on home oxygen 3L (7) Chronic anemia: Code(s): D64.9 - Anemia, unspecified Status: Acute Assessment and Plan: Hgb 8.5 today Transfuse if <7 Monitor (8) Diet-controlled diabetes mellitus: Code(s): E11.9 - Type 2 diabetes mellitus without complications Status: Acute Assessment and Plan: Hemoglobin A1c earlier this month was 5.0 Subjective Date/time seen: 03/09/21 09:14 Interval history: Pt seen this a.m.; no acute events overnight; denies any TURNER, dizziness, CP, SOB; pain controlled Review of Systems Review of Systems: All systems reviewed & are unremarkable except as noted in HPI and below Exam Const: General: no acute distress, alert and awake Orientation/consciousness: patient oriented x3 HENMT: Head: normocephalic and atraumatic Ears: hearing grossly normal bilaterally Face and sinus: face symmetric Mouth: Yes Normal oral and palatal mucosa present Eyes: EOM: EOMs intact bilaterally Neck: Neck: full ROM, trachea midline and no JVD Resp: Effort & Inspection: normal respiratory effort Auscultation: clear to auscultation bilaterally Cardio: Jugular venous distension: no JVD Rate: regular rate Rhythm: regular rhythm Heart sounds: S1 normal heart sound present and S2 normal heart sound present GI: Inspection: normal to inspection GI Palp: Yes Soft to palpation Auscultation: normal bowel sounds : General: Yes no CVA tenderness Back/Spine/Pelvis: Back: no CVA tenderness Skin: General skin exam: normal color Rashes: no rashes Neuro: General: patient oriented x3, moves all extremities and no focal motor deficits Cranial nerves: Yes Equal, round and reactive pupils present Speech: normal speech Extrem: General: no clubbing, cyanosis or edema Psych: Appearance: grossly normal Affect: normal affect Judgement: Good judgement present (Psych) Objective Data Vital Signs Vital Signs: Vital Signs - 24 hr 03/08/21 13:26 03/08/21 13:37 03/08/21 15:14 Temperature 36.7 C Pulse Rate 78 76 63 Respiratory Rate 13 13 Blood Pressure 111/51 L
[2021-03-09] MEDS: FERROUS SULFATE LIQUID 325 MG/7.4 ML ELIXIR PO (09:27)
[2021-03-09] MEDS: DONEPEZIL HCL 5 MG TABLET PO (20:57)
[2021-03-09 21:06] LABS: Glucose Point of Care 157 mg/dl (65-105)
[2021-03-10] VITALS (16 sets, daily range): BP systolic 108–117; BP diastolic 49–88; PULSE 58–88; RESP 15–18; TEMP 36–36.6; O2SAT 90–100
[2021-03-10 05:05] LABS: Hematocrit 27.8 % (42.0-52.0); Hemoglobin 8.2 g/dL (14.0-18.0); Mean Corpuscular HGB Conc 29.5 g/dl (32-36); Mean Corpuscular Volume 81.3 fl (80-100); Mean Platelet Volume 10.2 fl (7.4-10.4); Platelet Count Result 158 k/mm3 (150-375); Red Blood Count 3.42 M/mm3 (4.6-6.20); Red Cell Distribution Width 19.9 % (11.5-14.5); White Blood Count 5.7 K/mm3 (4.5-10.0)
[2021-03-10 05:29] LABS: Anion Gap 0 mmol/L (8-16); Blood Urea Nitrogen 25 mg/dL (9-20); Carbon Dioxide 37 mmol/L (22-30); Chloride 98 mmol/L (98-107); Estimated CRCL calculation 59 ml/min; Estimated Glomerular Filt Rate > 60; Glucose 112 mg/dL (65-110); Potassium 3.4 mmol/L (3.4-5.0); Sodium 135 mmol/L (137-145)
[2021-03-10] MEDS: PREGABALIN (*CRX) 75 MG CAPSULE PO ×3 (05:53→21:04)
[2021-03-10 08:41] LABS: Glucose Point of Care 161 mg/dl (65-105)
--- NOTE | 2021-03-10 09:13 | PM.IMPN ---
Progress Note: A&P Assessment and Plan (1) Recurrent falls: Code(s): R29.6 - Repeated falls Status: Acute Assessment and Plan: Reported feeling lightheaded and dizzy prior falling, and thinks he briefly lost consciousness Fall precautions PT/OT consulted Monitor orthostatic vital signs which has been unremarkable With prolonged altered mental sensorium unlikely to be syncopal episode, CT head was negative could not do MRI because of internal device. Carotid Doppler since been negative it was recently done in February 2021 Will consult Neurology for any recommendation /suggestion (2) Syncope and collapse: Code(s): R55 - Syncope and collapse Status: Acute Assessment and Plan: Telemetry overnight to rule out cardiac dysrhythmia, hx nonsustained V-tach Last ECHO 11/2020-->EF 40-45%, diastolic dysfunction Heat CT-->small chronic right occipital infarct, Small right anterior falx calcified meningioma; no acute intracranial finding Will repeat ECHO which is pending recently done echo on 07/03/2020 showed EF 55-60% severe pulmonary hypertension grade 2 diastolic dysfunction left ventricular septal wall motion abnormal with septal motion related to bundle branch block (3) Multiple rib fractures: Qualifiers: Encounter type: initial encounter Fracture type: closed Laterality: left Qualified Code(s): S22.42XA - Multiple fractures of ribs, left side, initial encounter for closed fracture Code(s): S22.49XA - Multiple fractures of ribs, unspecified side, initial encounter for closed fracture Status: Acute Assessment and Plan: Patient sustained left 5th and 6th rib fractures Analgesics available as needed Encourage incentive spirometry Supportive care (4) Hypertension: Code(s): I10 - Essential (primary) hypertension Status: Chronic Assessment and Plan: Soft Continue BB and Lasix Monitor (5) Congestive heart disease: Code(s): I50.9 - Heart failure, unspecified Status: Acute Assessment and Plan: Clinically compensated Continue BB, ASA, Lasix Continue to monitor volume status closely (6) Chronic respiratory failure with hypoxia, on home oxygen therapy: Code(s): J96.11 - Chronic respiratory failure with hypoxia; Z99.81 - Dependence on supplemental oxygen Status: Acute Assessment and Plan: Currently on home oxygen 3L He does have recent history of hypercapnic respiratory failure however ABG this time was well compensated noted to have low oxy hemoglobin in the ABG (7) Chronic anemia: Code(s): D64.9 - Anemia, unspecified Status: Acute Assessment and Plan: Hgb 8.5 today Transfuse if <7 Monitor (8) Diet-controlled diabetes mellitus: Code(s): E11.9 - Type 2 diabetes mellitus without complications Status: Acute Assessment and Plan: Hemoglobin A1c earlier this month was 5.0 Subjective Date/time seen: 03/10/21 09:13 Interval history: 03/10/2021 no overnight events. he states he had recurrent falls in the past was admitted several times for the same issue. He was in a recliner and outside and he was on the floor does not remember what happened he does not remember getting to the hospital. He currently feels okay and back to his normal self Review of Systems Review of Systems: All systems reviewed & are unremarkable except as noted in HPI and below Exam Narrative: General: Well-developed elderly male, not in acute distress HEENT: PERRL, EOMI. Sclerae anicteric. Tacky mucous membranes. Nasal cannula in place at 3 L. which is at baseline Neck: Supple. No adenopathy or obvious JVD. Respiratory: Respirations are even and nonlabored. Lungs are clear to auscultation. Cardiovascular: Regular rate and rhythm with S1-S2. Soft murmur at the upper sternal border. Chest:no respiratory distress decreased breath sounds bilaterally Gastrointestinal: Abdomen is soft, protuberan
[2021-03-10] MEDS: METOPROLOL TARTRATE 12.5 MG TABLET PO (09:16)
[2021-03-10] MEDS: FERROUS SULFATE LIQUID 325 MG/7.4 ML ELIXIR PO (09:16)
[2021-03-10] MEDS: TAMSULOSIN HCL 0.4 MG CAPSULE PO (09:18)
[2021-03-10] MEDS: MAGNESIUM OXIDE 400 MG TABLET PO ×2 (09:18→16:07)
[2021-03-10] MEDS: PANTOPRAZOLE 40 MG TABLET PO (09:18)
[2021-03-10] MEDS: ASPIRIN 81 MG CHEWABLE TABLET PO (09:18)
[2021-03-10] MEDS: FUROSEMIDE 40 MG TABLET PO (09:18)
[2021-03-10 12:03] LABS: Glucose Point of Care 146 mg/dl (65-105)
--- NOTE | 2021-03-10 15:32 | PHAR ---
The patient's home med of NUEDEXTA 20-10MG has been verified.
[2021-03-10 16:13] LABS: Glucose Point of Care 130 mg/dl (65-105)
[2021-03-10] MEDS: DONEPEZIL HCL 5 MG TABLET PO (20:23)
[2021-03-10 22:20] LABS: Glucose Point of Care 160 mg/dl (65-105)
[2021-03-11] VITALS (13 sets, daily range): BP systolic 110–122; BP diastolic 52–65; PULSE 59–81; RESP 18; TEMP 35.9–36.5; O2SAT 99–100
[2021-03-11] MEDS: PREGABALIN (*CRX) 75 MG CAPSULE PO ×3 (05:27→21:09)
[2021-03-11 07:41] LABS: Glucose Point of Care 115 mg/dl (65-105)
--- NOTE | 2021-03-11 07:50 | PM.IMPN ---
Progress Note: A&P Assessment and Plan (1) Recurrent falls: Code(s): R29.6 - Repeated falls Status: Acute Assessment and Plan: Reported feeling lightheaded and dizzy prior falling, and thinks he briefly lost consciousness Fall precautions PT/OT consulted Monitor orthostatic vital signs which has been unremarkable With prolonged altered mental sensorium unlikely to be syncopal episode, CT head was negative could not do MRI because of pain pump. Carotid Doppler since been negative it was recently done in February 2021 Consulted Neurology for any recommendation /suggestion. Await Neuro recommendations (2) Syncope and collapse: Code(s): R55 - Syncope and collapse Status: Acute Assessment and Plan: Telemetry overnight to rule out cardiac dysrhythmia, hx nonsustained V-tach Last ECHO 11/2020-->EF 40-45%, diastolic dysfunction Heat CT-->small chronic right occipital infarct, Small right anterior falx calcified meningioma; no acute intracranial finding Will repeat ECHO which is pending recently done echo on 07/03/2020 showed EF 55-60% severe pulmonary hypertension grade 2 diastolic dysfunction left ventricular septal wall motion abnormal with septal motion related to bundle branch block (3) Multiple rib fractures: Qualifiers: Encounter type: initial encounter Fracture type: closed Laterality: left Qualified Code(s): S22.42XA - Multiple fractures of ribs, left side, initial encounter for closed fracture Code(s): S22.49XA - Multiple fractures of ribs, unspecified side, initial encounter for closed fracture Status: Acute Assessment and Plan: Patient sustained left 5th and 6th rib fractures Analgesics available as needed Encourage incentive spirometry Supportive care (4) Hypertension: Code(s): I10 - Essential (primary) hypertension Status: Chronic Assessment and Plan: Soft Continue BB and Lasix Monitor (5) Congestive heart disease: Code(s): I50.9 - Heart failure, unspecified Status: Acute Assessment and Plan: Clinically compensated Continue BB, ASA, Lasix Continue to monitor volume status closely (6) Chronic respiratory failure with hypoxia, on home oxygen therapy: Code(s): J96.11 - Chronic respiratory failure with hypoxia; Z99.81 - Dependence on supplemental oxygen Status: Acute Assessment and Plan: Currently on home oxygen 3L He does have recent history of hypercapnic respiratory failure however ABG this time was well compensated noted to have low oxy hemoglobin in the ABG (7) Chronic anemia: Code(s): D64.9 - Anemia, unspecified Status: Acute Assessment and Plan: Hgb 8.5 today Transfuse if <7 Monitor (8) Diet-controlled diabetes mellitus: Code(s): E11.9 - Type 2 diabetes mellitus without complications Status: Acute Assessment and Plan: Hemoglobin A1c earlier this month was 5.0 Subjective Date/time seen: 03/11/21 07:50 Interval history: 03/10/2021 no overnight events. he states he had recurrent falls in the past was admitted several times for the same issue. He was in a recliner and outside and he was on the floor does not remember what happened he does not remember getting to the hospital. He currently feels okay and back to his normal self 03/11/2021 no overnight events vital stable denies any complaints. Unclear why he falls and remains intermittently confused has been having memory issues per family Review of Systems Review of Systems: All systems reviewed & are unremarkable except as noted in HPI and below Exam Narrative: General: Well-developed elderly male, not in acute distress HEENT: PERRL, EOMI. Sclerae anicteric. Tacky mucous membranes. Nasal cannula in place at 3 L. which is at baseline Neck: Supple. No adenopathy or obvious JVD. Respiratory: Respirations are even and nonlabored. Lungs are clear to auscultation. Cardiovascular: R
[2021-03-11] MEDS: METOPROLOL TARTRATE 12.5 MG TABLET PO (08:49)
[2021-03-11] MEDS: ASPIRIN 81 MG CHEWABLE TABLET PO (08:49)
[2021-03-11] MEDS: MAGNESIUM OXIDE 400 MG TABLET PO ×2 (08:49→17:11)
[2021-03-11] MEDS: TAMSULOSIN HCL 0.4 MG CAPSULE PO (08:49)
[2021-03-11] MEDS: PANTOPRAZOLE 40 MG TABLET PO (08:50)
[2021-03-11] MEDS: FERROUS SULFATE LIQUID 325 MG/7.4 ML ELIXIR PO (10:23)
--- NOTE | 2021-03-11 10:43 | WPDNEURCNPN ---
Assessment and Plan Additional Plan recurrent falls with history of underlying multiple medical problems in addition to the history of chronic right occipital infarct and small right anterior falx calcified meningioma would definitely left-sided rib fractures to account for the falls. 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 Chronic hypoxic respiratory failure for which she is on 3L of nasal cannula oxygen 2. Coronary artery disease 3. Congestive heart failure 4. Paroxysmal atrial fibrillation 5. Hypertension 6. Diet-controlled diabetes patient has been in this hospital on several occasions he typically ambulates with a walker and the day of admission today while standing he felt lightheaded and became possibly unconscious briefly and also mention that he has had an other minor fall on arrival in the emergency room he was complaining of discomfort about the left flank and was found to have left 5th and 6th rib fracture he was admitted to the hospital overnight for the physical therapy and occupational therapy evaluation. Patient does have ongoing history of arthritis, old infarcts in the right occipital lobe documented by the CT of the head on October 24, 2020, history of bleeding peptic ulcer, hypertension, with moderate pulmonary hypertension as well, paroxysmal atrial fibrillation, and spinal stenosis, type 2 diabetes mellitus Review of Systems Review of Systems: All systems reviewed & are unremarkable except as noted in HPI and below PMFSH Past Medical History Medical History Arthritis Benign prostatic hyperplasia Cerebrovascular accident 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 Chronic anemia Chronic pain Patient had a pain pump inserted in February 2019. Chronic respiratory failure with hypoxia, on home oxygen therapy Baseline oxygen requirement is 3 L nasal cannula. Congestive heart failure Echocardiogram on 10/25/2020 showed preserved LV systolic function with an estimated EF of 50 to 55% and abnormal diastolic function. With repeat limited echocardiogram 11/2020 demonstrated EF of 40 45% and abnormal diastolic function. Coronary artery disease Gastroesophageal reflux disease History of bleeding peptic ulcer Hypertension Iron deficiency anemia Receives frequent iron infusions. Moderate pulmonary hypertension Estimated pulmonary arterial systolic pressure was 54 mmHg on echocardiogram dated 10/25/2020. Paroxysmal atrial fibrillation Pseudobulbar affect Spinal stenosis Type 2 diabetes mellitus Hemoglobin A1c was 6.3% on 10/25/2020. Surgical History Surgical History History of bilateral cataract extraction History of hernia repair Family History Family History Father Acute myocardial infarction Sibling Acute myocardial infarction Brain aneurysm Other No problems noted. 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 Code status: Full code. Smoking packs per day: 3 Smoking cigarettes per day: 60.0 Years smoked: 40 Smoking pack-years: 120.00 Smoking status: Former smoker Alcohol intake: never Substance use: never Substance use type: does not use Additional living arrangements comments: The patient lives in
[2021-03-11 11:21] LABS: Glucose Point of Care 203 mg/dl (65-105)
[2021-03-11] MEDS: INSULIN ASPART (*BKC) 100 UNITS/ML SUB-Q (12:21)
[2021-03-11] MEDS: FUROSEMIDE 40 MG TABLET PO (15:50)
[2021-03-11 16:36] LABS: Glucose Point of Care 159 mg/dl (65-105)
[2021-03-11] MEDS: DONEPEZIL HCL 5 MG TABLET PO (20:09)
[2021-03-11 21:13] LABS: Glucose Point of Care 152 mg/dl (65-105)
[2021-03-12] VITALS: PULSE 62
[2021-03-12 04:00] VITALS: PULSE 65
[2021-03-12 04:42] VITALS: BP 121/62; PULSE 74; RESP 20; TEMP 35.7; O2SAT 98
[2021-03-12] MEDS: PREGABALIN (*CRX) 75 MG CAPSULE PO (05:03)
[2021-03-12 05:50] LABS: Basophils Percent Auto 0.5 % (0.2-1.2); Eosinophils Absolute Auto 0.4 K/mm3 (0-0.3); Eosinophils Percent Auto 5.9 % (0-4.4); Hematocrit 31.6 % (42.0-52.0); Hemoglobin 9.2 g/dL (14.0-18.0); Immature Granulocyte Absolute 0.04 K/mm3 (0.00-0.031); Immature Granulocyte Percent A 0.7 % (0-0.5); Immature Platelet Fraction Pct 6.6 % (0.9-11.2); Lymphocytes Absolute Auto 0.72 K/mm3 (0.9-3.2); Lymphocytes Percent Auto 12.2 % (18.3-44.2); Mean Corpuscular HGB Conc 29.1 g/dl (32-36); Mean Corpuscular Hemoglobin 24.1 pg (26-34); Mean Corpuscular Volume 82.9 fl (80-100); Monocytes Absolute Auto 0.9 K/mm3 (0.1-0.6); Monocytes Percent Auto 15.6 % (2.6-8.5); Neutrophils Absolute Auto 3.8 K/mm3 (1.3-6.7); Neutrophils Percent Auto 65.1 % (45.5-73.1); Platelet Count Result 155 k/mm3 (150-375); Red Blood Count 3.81 M/mm3 (4.6-6.20); White Blood Count 5.9 K/mm3 (4.5-10.0)
[2021-03-12 06:01] LABS: Alanine Aminotransferase 12 U/L (4-50); Alkaline Phosphatase 115 U/L (38-126); Aspartate Amino Transferase 23 U/L (17-59); Bilirubin,Total 0.6 mg/dL (0.2-1.3); Blood Urea Nitrogen 16 mg/dL (9-20); Calcium 8.1 mg/dL (8.4-10.2); Carbon Dioxide > 40 mmol/L (22-30); Chloride 91 mmol/L (98-107); Estimated CRCL calculation 65 ml/min; Estimated Glomerular Filt Rate > 60; Glucose 105 mg/dL (65-110); Potassium 3.6 mmol/L (3.4-5.0); Sodium 135 mmol/L (137-145)
[2021-03-12 06:22] LABS: Hypochromasia 2+ (NORMAL); Ovalocytes 2+ (NORMAL); Platelet Estimate Adequate (Adequate)
[2021-03-12 06:23] LABS: Tear Drop Cells 1+ (NORMAL)
[2021-03-12 07:44] LABS: Glucose Point of Care 112 mg/dl (65-105)
[2021-03-12 08:00] VITALS: PULSE 74
[2021-03-12 08:29] VITALS: PULSE 74
[2021-03-12] MEDS: METOPROLOL TARTRATE 12.5 MG TABLET PO (08:29)
[2021-03-12] MEDS: FUROSEMIDE 40 MG TABLET PO (08:29)
[2021-03-12] MEDS: MAGNESIUM OXIDE 400 MG TABLET PO (08:29)
[2021-03-12] MEDS: PANTOPRAZOLE 40 MG TABLET PO (08:29)
[2021-03-12] MEDS: FERROUS SULFATE LIQUID 325 MG/7.4 ML ELIXIR PO (08:30)
[2021-03-12] MEDS: TAMSULOSIN HCL 0.4 MG CAPSULE PO (08:30)
[2021-03-12] MEDS: ASPIRIN 81 MG CHEWABLE TABLET PO (08:30)
[2021-03-12 08:40] VITALS: O2SAT 98
--- NOTE | 2021-03-12 09:06 | PM.DS ---
DS: Admitting Diagnosis Discharge Date 03/12/2021 Admitting Diagnosis fall DS: Discharge Diagnosis Discharge Diagnosis (1) Recurrent falls: Code(s): R29.6 - Repeated falls Status: Acute Assessment and Plan: Reported feeling lightheaded and dizzy prior falling, and thinks he briefly lost consciousness Fall precautions PT/OT consulted Monitor orthostatic vital signs which has been unremarkable With prolonged altered mental sensorium suspected it is not syncopal episode, CT head was negative could not do MRI because of pain pump. Carotid Doppler since been negative it was recently done in February 2021 Consulted Neurology for any recommendation /suggestion. suspected to be related to for neuropathy /orthostasis. Work with PT and OT still No episodes here during the hospital stay. DiscussedSafety precautions possible orthostasis. Family is also installing cameras much this episodes for any other possible etiology suggest seizures I have also suggested 247 care at home which is being arranged per family (2) Syncope and collapse: Code(s): R55 - Syncope and collapse Status: Acute Assessment and Plan: Telemetry overnight to rule out cardiac dysrhythmia, hx nonsustained V-tach Last ECHO 11/2020-->EF 40-45%, diastolic dysfunction Heat CT-->small chronic right occipital infarct, Small right anterior falx calcified meningioma; no acute intracranial finding Will repeat ECHO which is pending recently done echo on 07/03/2020 showed EF 55-60% severe pulmonary hypertension grade 2 diastolic dysfunction left ventricular septal wall motion abnormal with septal motion related to bundle branch block (3) Multiple rib fractures: Qualifiers: Encounter type: initial encounter Fracture type: closed Laterality: left Qualified Code(s): S22.42XA - Multiple fractures of ribs, left side, initial encounter for closed fracture Code(s): S22.49XA - Multiple fractures of ribs, unspecified side, initial encounter for closed fracture Status: Acute Assessment and Plan: Patient sustained left 5th and 6th rib fractures Analgesics available as needed Encourage incentive spirometry Supportive care (4) Hypertension: Code(s): I10 - Essential (primary) hypertension Status: Chronic Assessment and Plan: Soft Continue BB and Lasix Monitor (5) Congestive heart disease: Code(s): I50.9 - Heart failure, unspecified Status: Acute Assessment and Plan: Clinically compensated Continue BB, ASA, Lasix Continue to monitor volume status closely Remains euvolemic during the hospital stay (6) Chronic respiratory failure with hypoxia, on home oxygen therapy: Code(s): J96.11 - Chronic respiratory failure with hypoxia; Z99.81 - Dependence on supplemental oxygen Status: Acute Assessment and Plan: Currently on home oxygen 3L He does have recent history of hypercapnic respiratory failure however ABG this time was well compensated noted to have low oxy hemoglobin in the ABG (7) Chronic anemia: Code(s): D64.9 - Anemia, unspecified Status: Acute Assessment and Plan: Hgb 8.5 today Transfuse if <7 Monitor and remained stable throughout the hospital stay (8) Diet-controlled diabetes mellitus: Code(s): E11.9 - Type 2 diabetes mellitus without complications Status: Acute Assessment and Plan: Hemoglobin A1c earlier this month was 5.0 No hypoglycemia is noted during the hospital stay DS: Summary Hospital Course Hospital Course: see above Time Spent with Patient Time attestation: Total time spent providing and/or coordinating discharge services: 40 minutes Exam Narrative: General: Well-developed elderly male, not in acute distress HEENT: PERRL, EOMI. Sclerae anicteric. Tacky mucous membranes. Nasal cannula in place at 3 L. which is at baseline Neck: Supple. No adenopathy or obvious JVD. Respiratory: Resp
[2021-03-12 11:45] LABS: Glucose Point of Care 147 mg/dl (65-105)
== END 2021-03-12 12:00 | disposition home health service (06) ==
LOC: ANHED 16:14 → ANH2MED 22:45
PROVIDERS: Emergency Medicine; Nurse Practitioner Adult Health; Physician Assistant; Admitting Provider Internal Medicine; Emergency Provider Emergency Medicine; PCP Internal Medicine; Visit Provider Internal Medicine
DX: S22.42XA Multiple fractures of ribs, left side, initial encounter for closed fracture (principal); W19.XXXA Unspecified fall, initial encounter; J96.11 Chronic respiratory failure with hypoxia; R55 Syncope and collapse; R53.1 Weakness; R29.6 Repeated falls; I25.10 Atherosclerotic heart disease of native coronary artery without angina pectoris; I11.0 Hypertensive heart disease with heart failure; I50.9 Heart failure, unspecified; D50.9 Iron deficiency anemia, unspecified; K43.9 Ventral hernia without obstruction or gangrene; R25.1 Tremor, unspecified; N40.0 Benign prostatic hyperplasia without lower urinary tract symptoms; Z86.73 Personal history of transient ischemic attack (TIA), and cerebral infarction without residual deficits; Z99.81 Dependence on supplemental oxygen; K21.9 Gastro-esophageal reflux disease without esophagitis; I48.0 Paroxysmal atrial fibrillation; E11.9 Type 2 diabetes mellitus without complications; Z87.11 Personal history of peptic ulcer disease; Z87.891 Personal history of nicotine dependence; Z79.82 Long term (current) use of aspirin
CPT/HCPCS: 36415; 36600; 70450; 71046; 71100; 80048; 80053; 81003; 82375; 82805; 82948; 83050; 83735; 84484; 85025; 85027; 85055; 85610; 85730; 93005; 96360; 96361; 97162; 97165; 99285; A9270; G0378; J1815; J7120

== ENCOUNTER 2021-07-01 16:08 | Observation (INO) | payer MEDICARE, MEDICAID, SELFPAY ==
[2021-07-01] VITALS (26 sets, daily range): BP systolic 107–137; BP diastolic 57–94; PULSE 73–85; RESP 10–20; TEMP 36.7–36.9; O2SAT 90–100; BMI 37.6
--- NOTE | ~2021-07-01 | XR_ITS ---
EXAMINATION: XR chest 1V portable DATE: 07/03/2021 08:32 INDICATION: Congestive heart failure. TECHNIQUE: A single frontal view of the chest was obtained. COMPARISON: Chest 2 views 07/01/2021, chest CT 12/11/2020 FINDINGS: Again seen is mild elevation of left hemidiaphragm. There is a diffuse interstitial pattern , consistent with mild pulmonary edema. There are airspace opacities at the lung bases. There are sma ll pleural effusions. No pneumothorax. Cardiomegaly is noted. IMPRESSION: 1. Mild pulmonary edema. 2. Small pleural effusions. 3. Airspace opacities at the lung bases, likely atelectasis. 4. Cardiomegaly. Reviewed, dictated and finalized at location B.
--- NOTE | ~2021-07-01 | XR_ITS ---
EXAMINATION: XR chest 2V DATE: 07/01/2021 16:43 INDICATION: Shortness of breath. Bilateral leg edema. TECHNIQUE: Frontal and lateral views of the chest were obtained. COMPARISON: Chest single view 02/15/2021, chest CT 12/11/2020 FINDINGS: There are small pleural effusions. There is mild atelectasis at left lung base. There is a diffuse interstitial pattern, consistent mild pulmonary edema. No pneumothorax. Cardiac megaly is dis tended. IMPRESSION: 1. Mild pulmonary edema. 2. Small pleural effusions. 3. Cardiomegaly. Reviewed, dictated and finalized at location B.
--- NOTE | 2021-07-01 16:26 | ECG_ITS ---
Measurements Intervals [place] Rate: 81 P: AL: 234 QRS: 116 QRSD: 108 T: 13 QT: 382 QTc: 445 Interpretive Statements SINUS RHYTHM WITH SINUS ARRHYTHMIA AND FIRST-DEGREE AV BLOCK LOW QRS VOLTAGE IN EXTREMITY LEADS [QRS DEFLECTION < 0.5 mV IN LIMB LEADS] LATERAL MYOCARDIAL INFARCTION , PROBABLY OLD [40+ ms Q WAVE AND/OR ST/T ABNORMALITY IN I/aVL/V5/V6] COMPARED TO ECG 03/08/2021 13:34:33 CRITERIA FOR SEPTAL INFARCTION NO LONGER APPRECIATED LATERAL INFARCTION PRESENT Electronically Signed On 07-01-2021 17:11:23 CDT by Mitch Gonzáles M.D.
[2021-07-01 17:05] LABS: Basophils Percent Auto 0.3 % (0.2-1.2); Eosinophils Absolute Auto 0.2 K/mm3 (0-0.3); Hematocrit 36.5 % (42.0-52.0); Hemoglobin 10.4 g/dL (14.0-18.0); Immature Granulocyte Absolute 0.04 K/mm3 (0.00-0.031); Immature Granulocyte Percent A 0.7 % (0-0.5); Immature Platelet Fraction Pct 9.1 % (0.9-11.2); Lymphocytes Absolute Auto 0.44 K/mm3 (0.9-3.2); Lymphocytes Percent Auto 7.4 % (18.3-44.2); Mean Corpuscular HGB Conc 28.5 g/dl (32-36); Mean Corpuscular Hemoglobin 26.1 pg (26-34); Mean Corpuscular Volume 91.7 fl (80-100); Monocytes Absolute Auto 0.8 K/mm3 (0.1-0.6); Monocytes Percent Auto 12.8 % (2.6-8.5); Neutrophils Absolute Auto 4.5 K/mm3 (1.3-6.7); Neutrophils Percent Auto 75.8 % (45.5-73.1); Platelet Count Result 97 k/mm3 (150-375); Red Blood Count 3.98 M/mm3 (4.6-6.20); Red Cell Distribution Width 19.1 % (11.5-14.5)
[2021-07-01 17:14] LABS: Alanine Aminotransferase 37 U/L (4-50); Albumin Level 3.7 g/dL (3.5-5.1); Alkaline Phosphatase 122 U/L (38-126); Anion Gap 7 mmol/L (8-16); Aspartate Amino Transferase 30 U/L (17-59); Bilirubin,Total 0.5 mg/dL (0.2-1.3); Blood Urea Nitrogen 45 mg/dL (9-20); Calcium 8.3 mg/dL (8.4-10.2); Carbon Dioxide 32 mmol/L (22-30); Chloride 98 mmol/L (98-107); Estimated CRCL calculation 47 ml/min; Estimated Glomerular Filt Rate 58; Glucose 160 mg/dL (65-110); Sodium 137 mmol/L (137-145)
[2021-07-01 17:22] LABS: Glucose Point of Care 162 mg/dl (65-105)
[2021-07-01 17:38] LABS: Mean Platelet Volume 11.8 fl (7.4-10.4)
[2021-07-01 17:41] LABS: Anisocytosis 1+ (NORMAL); Hypochromasia 1+ (NORMAL); Platelet Estimate Decreased (Adequate); Stomatocytes 1+ (NORMAL)
[2021-07-01 18:40] LABS: NT Pro B Type Natriuretic Pept 9790 pg/mL (5-100)
[2021-07-01] MEDS: FUROSEMIDE INJ 40 MG/4 ML VIAL IV PUSH ×2 (19:07→21:40)
--- NOTE | 2021-07-01 19:28 | ED.SOB ---
HPI - SOB/Dyspnea General Chief Complaint: Shortness of Breath/Dyspnea Stated Complaint: DIFFICULTY BREATHING WITH EDEMA NOTED Time Seen by Provider: 07/01/21 16:13 History of Present Illness HPI Narrative: Patient is an 80-year-old male who presents ER with shortness of breath. Reports worsening over the last 5 days. Associated with edema in his lower extremities at the same time. Chronically O2 dependent on 3 L of oxygen and has recently had increased to 4 L. Unsure if he has orthopnea. Reports he takes diuretics at home and thinks he may be missing some doses. He does have history of dementia. No chest pain or chest pressure at this time. Related Data Home Medications Medication Instructions Recorded Confirmed Nuedexta See Rx Instructions .ROUTE .COMPLEX 10/24/20 03/08/21 pantoprazole 40 mg PO DAILY 10/24/20 03/08/21 pregabalin 75 mg PO TID 10/24/20 03/08/21 tamsulosin 0.4 mg PO DAILY 10/24/20 03/08/21 ferrous sulfate 4 ml PO DAILY 12/11/20 03/08/21 metoprolol tartrate 12.5 mg PO DAILY 03/08/21 03/08/21 Allergies Allergy/AdvReac Type Severity Reaction Status Date / Time No Known Allergies Allergy Verified 03/08/21 13:30 Review of Systems Review of Systems: All systems reviewed & are unremarkable except as noted in HPI and below Constitutional: Constitutional: Denies chills, Denies fever(s) and Denies weakness ENT: Denies nasal congestion and Denies sore throat Cardiovascular: Cardiovascular: Denies chest pain, Denies rapid heart rate and Denies radiating jaw, neck or arm pain Respiratory: Respiratory: Denies cough, Reports dyspnea and Denies wheezing Gastrointestinal: Gastrointestinal: Denies abdominal pain, Denies nausea and Denies vomiting Musculoskeletal: Comments: Lower extremity edema with weeping Neurologic: Denies headache(s), Denies focal weakness and Denies numbness PMFSH Past Medical History Medical History Arthritis Benign prostatic hyperplasia Cerebrovascular accident 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 Chronic anemia Chronic pain Patient had a pain pump inserted in February 2019. Chronic respiratory failure with hypoxia, on home oxygen therapy Baseline oxygen requirement is 3 L nasal cannula. Congestive heart failure Echocardiogram on 10/25/2020 showed preserved LV systolic function with an estimated EF of 50 to 55% and abnormal diastolic function. With repeat limited echocardiogram 11/2020 demonstrated EF of 40 45% and abnormal diastolic function. Coronary artery disease Gastroesophageal reflux disease History of bleeding peptic ulcer Hypertension Iron deficiency anemia Receives frequent iron infusions. Moderate pulmonary hypertension Estimated pulmonary arterial systolic pressure was 54 mmHg on echocardiogram dated 10/25/2020. Paroxysmal atrial fibrillation Pseudobulbar affect Spinal stenosis Type 2 diabetes mellitus Hemoglobin A1c was 6.3% on 10/25/2020. Surgical History Surgical History History of bilateral cataract extraction History of hernia repair Family History Family History Father Acute myocardial infarction Sibling Acute myocardial infarction Brain aneurysm Other No problems noted. 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 Code status: Full code. Smoking packs per day: 3 Smoking cigarettes per day: 60.0 Years smoked: 40 Smoking pack-years: 120.00 Smoking status: Former smoker Alcohol intake: never Substance use: never Substance use type: does not use Additional living arrangements comments: The patient lives in his own home in [place] any tells me a his sister Sarita lives at home with him. He ambulat
--- NOTE | 2021-07-01 20:47 | PC.NURSE ---
Report unable to be given at this time. Nurse unavailable to take report.
[2021-07-01 21:42] LABS: Glucose Point of Care 154 mg/dl (65-105)
--- NOTE | 2021-07-01 22:37 | ADMGEN ---
This patient, Zack Orellana, was admitted to 3 Med Surg Room 323-01. Patient/family oriented to hospital policies and general routines including ID bracelet, bed and alarms, visiting hours, pain management, procedures, bathroom and other care routines, personal items, smoking policy, room service/diet, and visiting hours. Information on how to activate the Rapid Response Team has been discussed. Patient/Family are encouraged to report perceived risks to care and to ask questions if they do not understand what they are told or what they should do.
[2021-07-02] VITALS (11 sets, daily range): BP systolic 106–129; BP diastolic 55–85; PULSE 74–112; RESP 18–20; TEMP 35.7–37; O2SAT 92–98
--- NOTE | 2021-07-02 05:43 | PM.IMHP ---
H&P: HPI History of Present Illness Date/Time: 07/02/21 05:43 Chief Complaint: Shortness of breath, leg swelling Narrative: 80-year-old male with past medical history of mild dementia, right-sided heart failure, diastolic heart failure, chronic hypoxic respiratory failure and diabetes who presented to the ER via EMS due to increasing shortness of breath for 2 days. The patient has increased shortness breath has also been accompanied by increased lower extremity edema up through the thighs including his scrotum. His extremity edema is been worse for the last several days. He has gained 5 lb overnight. He has usually on 3 L nasal cannula at all times and when he arrived to the ER he actually required increase in his oxygen to 4 L nasal cannula. He denies any chest pain or palpitations. He states that he thinks he has been taking all of his cardiac medications. His granddaughter is his full-time caregiver and prepares his meds. He states that he thinks he took the meds that she prepared but he is not sure. He reports that his granddaughter prepare braxton nutritious meals that fit his dietary restrictions. He denies any excessive salt intake or dietary indiscretions. He denies any chest pain or palpitations. He ambulates with a cane or walker. He had been ambulating just fine until the last 2 days in could not do so due to his shortness of breath. He reports that his leg swelling is already improved since he came into the hospital in is eager to go home today. I encouraged the patient to stay for another day so that we could provide more effective diuresis. The patient is frequently hospitalized usually at our facility. He reports that his last hospitalization for CHF was at [facility] about 2 months ago. Review of Systems Review of Systems: 12 systems were reviewed with pertinent positives and negatives per HPI. Except as documented in the HPI, all other systems were reviewed and are negative. [facility], LAT[facility] Past Medical History Medical History (Updated 07/02/21 @ 07:58 by Samantha Armas DO) Arthritis Benign prostatic hyperplasia Cerebrovascular accident 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 Chronic anemia Chronic pain Patient had a pain pump inserted in February 2019. Chronic respiratory failure with hypoxia, on home oxygen therapy Baseline oxygen requirement is 3 L nasal cannula. Congestive heart failure Echocardiogram February 2021: EF 55-60% (improved from prior echo of 45%) left ventricular septal wall motion abnormal related to bundle-branch block, grade 2 diastolic dysfunction, severe pulmonary hypertension with RVSP of 74, severe enlargement of the right atrium Coronary artery disease Gastroesophageal reflux disease History of bleeding peptic ulcer Hypertension Iron deficiency anemia Receives frequent iron infusions. Moderate pulmonary hypertension Estimated pulmonary arterial systolic pressure was 54 mmHg on echocardiogram dated 10/25/2020. Paroxysmal atrial fibrillation Pseudobulbar affect Spinal stenosis Type 2 diabetes mellitus Hemoglobin A1c was 6.3% on 10/25/2020. Surgical History Surgical History History of bilateral cataract extraction History of hernia repair Family History Family History Father Acute myocardial infarction Sibling Acute myocardial infarction Brain aneurysm Other No problems noted. Mother Breast cancer Social History Social History (Updated 07/02/21 @ 07:46 by Samantha Armas DO) Social History: Healthcare power of family law attorney: Lennie Cruz, granddaughter. Code status: Full code. Smoking packs per day: 3 Smoking cigarettes per day: 60.0 Years smoked: 40 Smoking pack-years: 120.00 Smoking status: Former smoker Alcohol intake: never Substance use: never Substance use type: does not use
--- NOTE | 2021-07-02 07:45 | P.PNIM_ITS ---
Progress Note: A&P Assessment and Plan (1) CHF exacerbation: Qualifiers: Heart failure type: right-sided Qualified Code(s): I50.813 - Acute on chronic right heart failure Code(s): I50.9 - Heart failure, unspecified Status: Acute Assessment and Plan: * Acute on chronic CHF exacerbation due to right-sided heart failure and diastolic heart failure * Chest Xray: Mild pulmonary edema, small pleural effusions, cardiomegaly * Echo from 02/2021 shows EF 55-60% with grade 2 diastolic dysfunction * BNP is 9790 * Strict I&O's * Daily weights * Continue Lasix 40 mg IV b.i.d. * Oxygen requirement up to 4 L from his baseline of 3 L * Telemonitor * 3+ pitting edema in the bilateral lower extremities * crackles in the bases * heart healthy diet and continue to monitor. (2) Chronic respiratory failure with hypoxia, on home oxygen therapy: Code(s): J96.11 - Chronic respiratory failure with hypoxia; Z99.81 - Dependence on supplemental oxygen Status: Acute Assessment and Plan: * Chronic 3LNC at home * Increased oxygen demand and was titrated to 4L * Able to be titrated down to baseline * Should get better with diuresis (3) Type 2 diabetes mellitus: Qualifiers: Diabetes mellitus prison insulin use: without truck terminal manager use Diabetes mellitus complication status: without complication Qualified Code(s): E11.9 - Type 2 diabetes mellitus without complications Code(s): E11.9 - Type 2 diabetes mellitus without complications Status: Chronic Assessment and Plan: * Glucose 141 * p.r.n. metformin * History of hypoglycemia in the past even with low-dose oral hypoglycemic * Low-dose sliding scale insulin * Accu-Cheks a.c. HS * hypoglycemia protocol * Trend glucose * Adjust therapy as indicated (4) BPH (benign prostatic hyperplasia): Code(s): N40.0 - Benign prostatic hyperplasia without lower urinary tract symptoms Status: Acute Assessment and Plan: * Complaints of not fully emptying, and frequency * Trend urine output * Resume home tamsulosin. Time Spent With Patient Time with patient: Greater than 35 minutes Subjective Date/time seen: 07/02/21 07:45 Interval history: Date/Time: 07/02/21 05:43 Narrative: 80-year-old male with past medical history of mild dementia, right- sided heart failure, diastolic heart failure, chronic hypoxic respiratory failure and diabetes who presented to the ER via EMS due to increasing shortness of breath for 2 days. The patient has increased shortness breath has also been accompanied by increased lower extremity edema up through the thighs including his scrotum. His extremity edema is been worse for the last several days. He has gained 5 lb overnight. He has usually on 3 L nasal cannula at all times and when he arrived to the ER he actually required increase in his oxygen to 4 L nasal cannula. He denies any chest pain or palpitations. He states that he thinks he has been taking all of his cardiac medications. His granddaughter is his full-time caregiver and prepares his meds. He states that he thinks he took the meds that she prepared but he is not sure. He reports that his granddaughter prepare braxton nutritious meals that fit his dietary restrictions. He denies any excessive salt intake or dietary indiscretions. He denies any chest pain or palpitations. He ambulates with a cane or walker. He had been ambulating just fine until the last 2 days in could not do so due to his shortness of breath. He reports that his
--- NOTE | 2021-07-02 07:45 | PM.IMPN ---
Progress Note: A&P Assessment and Plan (1) CHF exacerbation: Qualifiers: Heart failure type: right-sided Qualified Code(s): I50.813 - Acute on chronic right heart failure Code(s): I50.9 - Heart failure, unspecified Status: Acute Assessment and Plan: Acute on chronic CHF exacerbation due to right-sided heart failure and diastolic heart failure Chest Xray: Mild pulmonary edema, small pleural effusions, cardiomegaly Echo from 02/2021 shows EF 55-60% with grade 2 diastolic dysfunction BNP is 9790 Strict I&O's Daily weights Continue Lasix 40 mg IV b.i.d. Oxygen requirement up to 4 L from his baseline of 3 L Telemonitor 3+ pitting edema in the bilateral lower extremities crackles in the bases heart healthy diet and continue to monitor. (2) Chronic respiratory failure with hypoxia, on home oxygen therapy: Code(s): J96.11 - Chronic respiratory failure with hypoxia; Z99.81 - Dependence on supplemental oxygen Status: Acute Assessment and Plan: Chronic 3LNC at home Increased oxygen demand and was titrated to 4L Able to be titrated down to baseline Should get better with diuresis (3) Type 2 diabetes mellitus: Qualifiers: Diabetes mellitus nursing home insulin use: without nursing home use Diabetes mellitus complication status: without complication Qualified Code(s): E11.9 - Type 2 diabetes mellitus without complications Code(s): E11.9 - Type 2 diabetes mellitus without complications Status: Chronic Assessment and Plan: Glucose 141 p.r.n. metformin History of hypoglycemia in the past even with low-dose oral hypoglycemic Low-dose sliding scale insulin Accu-Cheks a.c. HS hypoglycemia protocol Trend glucose Adjust therapy as indicated (4) BPH (benign prostatic hyperplasia): Code(s): N40.0 - Benign prostatic hyperplasia without lower urinary tract symptoms Status: Acute Assessment and Plan: Complaints of not fully emptying, and frequency Trend urine output Resume home tamsulosin. Time Spent With Patient Time with patient: Greater than 35 minutes Subjective Date/time seen: 07/02/21 07:45 Interval history: Date/Time: 07/02/21 05:43 Narrative: 80-year-old male with past medical history of mild dementia, right-sided heart failure, diastolic heart failure, chronic hypoxic respiratory failure and diabetes who presented to the ER via EMS due to increasing shortness of breath for 2 days. The patient has increased shortness breath has also been accompanied by increased lower extremity edema up through the thighs including his scrotum. His extremity edema is been worse for the last several days. He has gained 5 lb overnight. He has usually on 3 L nasal cannula at all times and when he arrived to the ER he actually required increase in his oxygen to 4 L nasal cannula. He denies any chest pain or palpitations. He states that he thinks he has been taking all of his cardiac medications. His granddaughter is his full-time caregiver and prepares his meds. He states that he thinks he took the meds that she prepared but he is not sure. He reports that his granddaughter prepare braxton nutritious meals that fit his dietary restrictions. He denies any excessive salt intake or dietary indiscretions. He denies any chest pain or palpitations. He ambulates with a cane or walker. He had been ambulating just fine until the last 2 days in could not do so due to his shortness of breath. He reports that his leg swelling is already improved since he came into the hospital in is eager to go home today. I encouraged the patient to stay for another day so that we could provide more effective diuresis. The patient is frequently hospitalized usually at our facility. He reports that his last hospitalization for CHF was at [facility] about 2 months ago. 07/02/21 0745 Patient stated that
[2021-07-02 08:07] LABS: Hematocrit 36.5 % (42.0-52.0); Hemoglobin 10.3 g/dL (14.0-18.0); Immature Platelet Fraction Pct 9.7 % (0.9-11.2); Mean Corpuscular HGB Conc 28.2 g/dl (32-36); Mean Corpuscular Hemoglobin 25.6 pg (26-34); Mean Corpuscular Volume 90.6 fl (80-100); Mean Platelet Volume 11.1 fl (7.4-10.4); Platelet Count Result 102 k/mm3 (150-375); Red Blood Count 4.03 M/mm3 (4.6-6.20); Red Cell Distribution Width 19.1 % (11.5-14.5); White Blood Count 6.6 K/mm3 (4.5-10.0)
[2021-07-02 08:15] LABS: Blood Urea Nitrogen 41 mg/dL (9-20); Calcium 8.2 mg/dL (8.4-10.2); Carbon Dioxide > 40 mmol/L (22-30); Chloride 95 mmol/L (98-107); Estimated CRCL calculation 60 ml/min; Estimated Glomerular Filt Rate > 60; Glucose 141 mg/dL (65-110); Sodium 137 mmol/L (137-145)
[2021-07-02] MEDS: MAGNESIUM OXIDE 400 MG TABLET PO ×2 (08:34→16:19)
[2021-07-02] MEDS: TAMSULOSIN HCL 0.4 MG CAPSULE PO (08:34)
[2021-07-02] MEDS: ASPIRIN 81 MG CHEWABLE TABLET PO (08:35)
[2021-07-02] MEDS: PANTOPRAZOLE 40 MG TABLET PO (08:35)
[2021-07-02] MEDS: FUROSEMIDE INJ 40 MG/4 ML VIAL IV PUSH ×2 (08:35→20:49)
[2021-07-02] MEDS: PREGABALIN (*CRX) 75 MG CAPSULE PO ×3 (08:36→16:19)
[2021-07-02 08:47] LABS: Glucose Point of Care 175 mg/dl (65-105)
[2021-07-02 12:26] LABS: Glucose Point of Care 206 mg/dl (65-105)
[2021-07-02] MEDS: INSULIN ASPART (*BKC) 100 UNITS/ML SUB-Q (12:26)
[2021-07-02 16:10] LABS: Glucose Point of Care 161 mg/dl (65-105)
[2021-07-02] MEDS: DONEPEZIL HCL 5 MG TABLET PO (20:49)
[2021-07-03] VITALS (7 sets, daily range): BP systolic 122–132; BP diastolic 67–76; PULSE 76–79; RESP 18–20; TEMP 36.2–36.8; O2SAT 94–95
[2021-07-03] MEDS: ACETAMINOPHEN 325 MG TABLET 650 MG PO (05:20)
[2021-07-03 07:37] LABS: Glucose Point of Care 146 mg/dl (65-105)
[2021-07-03] MEDS: PANTOPRAZOLE 40 MG TABLET PO (08:00)
[2021-07-03] MEDS: TAMSULOSIN HCL 0.4 MG CAPSULE PO (08:00)
[2021-07-03] MEDS: FUROSEMIDE INJ 40 MG/4 ML VIAL IV PUSH (08:00)
[2021-07-03] MEDS: ASPIRIN 81 MG CHEWABLE TABLET PO (08:00)
[2021-07-03] MEDS: MAGNESIUM OXIDE 400 MG TABLET PO ×2 (08:00→16:36)
[2021-07-03] MEDS: PREGABALIN (*CRX) 75 MG CAPSULE PO ×3 (08:00→16:36)
[2021-07-03 09:38] LABS: Basophils Percent Auto 0.2 % (0.2-1.2); Eosinophils Absolute Auto 0.3 K/mm3 (0-0.3); Hematocrit 38.6 % (42.0-52.0); Hemoglobin 11.2 g/dL (14.0-18.0); Immature Granulocyte Absolute 0.03 K/mm3 (0.00-0.031); Immature Granulocyte Percent A 0.5 % (0-0.5); Immature Platelet Fraction Pct 10.5 % (0.9-11.2); Lymphocytes Absolute Auto 0.47 K/mm3 (0.9-3.2); Lymphocytes Percent Auto 7.5 % (18.3-44.2); Mean Corpuscular Volume 89.6 fl (80-100); Monocytes Absolute Auto 0.7 K/mm3 (0.1-0.6); Monocytes Percent Auto 11.6 % (2.6-8.5); Neutrophils Absolute Auto 4.8 K/mm3 (1.3-6.7); Neutrophils Percent Auto 76.2 % (45.5-73.1); Platelet Count Result 104 k/mm3 (150-375); Red Blood Count 4.31 M/mm3 (4.6-6.20); White Blood Count 6.3 K/mm3 (4.5-10.0)
[2021-07-03 09:48] LABS: Alanine Aminotransferase 29 U/L (4-50); Albumin Level 3.4 g/dL (3.5-5.1); Alkaline Phosphatase 112 U/L (38-126); Aspartate Amino Transferase 32 U/L (17-59); Blood Urea Nitrogen 27 mg/dL (9-20); Calcium 7.9 mg/dL (8.4-10.2); Carbon Dioxide > 40 mmol/L (22-30); Chloride 91 mmol/L (98-107); Estimated CRCL calculation 73 ml/min; Estimated Glomerular Filt Rate > 60; Glucose 198 mg/dL (65-110); Magnesium 1.3 mg/dL (1.6-2.3); Sodium 135 mmol/L (137-145)
[2021-07-03 10:11] LABS: Hypochromasia 2+ (NORMAL)
--- NOTE | 2021-07-03 10:52 | PCDIET ---
Dietitian consult for CHF education. See Nutritional Teaching Intervention. Thank you for the consult.
[2021-07-03 11:25] LABS: Glucose Point of Care 207 mg/dl (65-105)
--- NOTE | 2021-07-03 11:45 | P.DS_ITS ---
DS: Admitting Diagnosis Discharge Date 07/03/2021 1145 Admitting Diagnosis CHF exacerbation DS: Discharge Diagnosis Discharge Diagnosis (1) CHF exacerbation: Qualifiers: Heart failure type: right-sided Qualified Code(s): I50.813 - Acute on chronic right heart failure Code(s): I50.9 - Heart failure, unspecified Status: Acute Assessment and Plan: * Acute on chronic CHF exacerbation due to right-sided heart failure and diastolic heart failure * Chest Xray: Mild pulmonary edema, small pleural effusions, cardiomegaly * Echo from 02/2021 shows EF 55-60% with grade 2 diastolic dysfunction * BNP is 9790 * Strict I&O's * Daily weights * Continue Lasix 40 mg IV b.i.d. * Oxygen requirement up to 4 L from his baseline of 3 L * Telemonitor * 3+ pitting edema in the bilateral lower extremities * crackles in the bases * heart healthy diet and continue to monitor. (2) Chronic respiratory failure with hypoxia, on home oxygen therapy: Code(s): J96.11 - Chronic respiratory failure with hypoxia; Z99.81 - Dependence on supplemental oxygen Status: Acute Assessment and Plan: * Chronic 3LNC at home * Increased oxygen demand and was titrated to 4L * Able to be titrated down to baseline * Should get better with diuresis (3) Type 2 diabetes mellitus: Qualifiers: Diabetes mellitus complication status: without complication Diabetes mellitus exterminator helper termite insulin use: without [facility] use Qualified Code(s): E11.9 - Type 2 diabetes mellitus without complications Code(s): E11.9 - Type 2 diabetes mellitus without complications Status: Chronic Assessment and Plan: * Glucose 141 * p.r.n. metformin * History of hypoglycemia in the past even with low-dose oral hypoglycemic * Low-dose sliding scale insulin * Accu-Cheks a.c. HS * hypoglycemia protocol * Trend glucose * Adjust therapy as indicated (4) BPH (benign prostatic hyperplasia): Code(s): N40.0 - Benign prostatic hyperplasia without lower urinary tract symptoms Status: Acute Assessment and Plan: * Complaints of not fully emptying, and frequency * Trend urine output * Resume home tamsulosin. DS: Summary Hospital Course Hospital Course: Patient is an 80-year-old male with past medical history of dementia, heart failure, respiratory failure on 3 L at home who presented to the ED with complaints of shortness of breath for 2 days. BMP upon arrival was 9790. Chest x-ray showed mild pulmonary edema and small pleural effusions. Echo from February showed an EF of 55-60% with grade 2 diastolic dysfunction. Patient was started on IV Lasix twice a day. According to his granddaughter the patient had gained over 5 lb and she has been concerned. Patient also been complaining of penile pain and severe scrotal swelling. Patient also had 4+ pitting edema on the bilateral lower extremities. Since admission patient is euvolemic. Swelling has gone down greatly. According to his granddaughter cardiology told her to give him p.r.n. Lasix however his primary care provider does not want that. I explained to her that she should evaluate him according to his weight. She was also concerned about his walking which she has been walking well with PT and OT. Patient feels great and is ready to go. Patient did state that he had ham for Easter dinner. I explained her that pork has a lot of salt. Labs are stable at this time along with symptoms. Patient is stable to go home. Talked to Lennie about darcie
--- NOTE | 2021-07-03 11:45 | PM.DS ---
DS: Admitting Diagnosis Discharge Date 07/03/2021 1145 Admitting Diagnosis CHF exacerbation DS: Discharge Diagnosis Discharge Diagnosis (1) CHF exacerbation: Qualifiers: Heart failure type: right-sided Qualified Code(s): I50.813 - Acute on chronic right heart failure Code(s): I50.9 - Heart failure, unspecified Status: Acute Assessment and Plan: Acute on chronic CHF exacerbation due to right-sided heart failure and diastolic heart failure Chest Xray: Mild pulmonary edema, small pleural effusions, cardiomegaly Echo from 02/2021 shows EF 55-60% with grade 2 diastolic dysfunction BNP is 9790 Strict I&O's Daily weights Continue Lasix 40 mg IV b.i.d. Oxygen requirement up to 4 L from his baseline of 3 L Telemonitor 3+ pitting edema in the bilateral lower extremities crackles in the bases heart healthy diet and continue to monitor. (2) Chronic respiratory failure with hypoxia, on home oxygen therapy: Code(s): J96.11 - Chronic respiratory failure with hypoxia; Z99.81 - Dependence on supplemental oxygen Status: Acute Assessment and Plan: Chronic 3LNC at home Increased oxygen demand and was titrated to 4L Able to be titrated down to baseline Should get better with diuresis (3) Type 2 diabetes mellitus: Qualifiers: Diabetes mellitus complication status: without complication Diabetes mellitus prison insulin use: without ocean transportation intermediary use Qualified Code(s): E11.9 - Type 2 diabetes mellitus without complications Code(s): E11.9 - Type 2 diabetes mellitus without complications Status: Chronic Assessment and Plan: Glucose 141 p.r.n. metformin History of hypoglycemia in the past even with low-dose oral hypoglycemic Low-dose sliding scale insulin Accu-Cheks a.c. HS hypoglycemia protocol Trend glucose Adjust therapy as indicated (4) BPH (benign prostatic hyperplasia): Code(s): N40.0 - Benign prostatic hyperplasia without lower urinary tract symptoms Status: Acute Assessment and Plan: Complaints of not fully emptying, and frequency Trend urine output Resume home tamsulosin. DS: Summary Hospital Course Hospital Course: Patient is an 80-year-old male with past medical history of dementia, heart failure, respiratory failure on 3 L at home who presented to the ED with complaints of shortness of breath for 2 days. BMP upon arrival was 9790. Chest x-ray showed mild pulmonary edema and small pleural effusions. Echo from February showed an EF of 55-60% with grade 2 diastolic dysfunction. Patient was started on IV Lasix twice a day. According to his granddaughter the patient had gained over 5 lb and she has been concerned. Patient also been complaining of penile pain and severe scrotal swelling. Patient also had 4+ pitting edema on the bilateral lower extremities. Since admission patient is euvolemic. Swelling has gone down greatly. According to his granddaughter cardiology told her to give him p.r.n. Lasix however his primary care provider does not want that. I explained to her that she should evaluate him according to his weight. She was also concerned about his walking which she has been walking well with PT and OT. Patient feels great and is ready to go. Patient did state that he had ham for Easter dinner. I explained her that pork has a lot of salt. Labs are stable at this time along with symptoms. Patient is stable to go home. Talked to Lennie about additional care at home. I explained to keep doing daily weights, and to give him PRN Lasix if he is short of breath, or notices any extreme swelling. 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 I also told her that he will probably need to be increased to 40mg PO BID. Winch Derrick Operator came and talked to the patient about maintaining a diet. Status at Discharge Functional status at di
[2021-07-03] MEDS: INSULIN ASPART (*BKC) 100 UNITS/ML SUB-Q (11:59)
[2021-07-03] MEDS: MAGNESIUM SULF 4 GM/WATER100ML 4 GM/100 ML BAG IVPB (12:44)
[2021-07-03] MEDS: SILVERGEL (ELTA) 45 ML 1 APPLIC TOPICAL (14:24)
[2021-07-03 16:33] LABS: Glucose Point of Care 190 mg/dl (65-105)
== END 2021-07-03 16:45 | disposition home or self-care (01) ==
LOC: ANHED 16:37 → ANH3MEDSUR 21:21
PROVIDERS: Admitting Provider Internal Medicine; Emergency Provider Emergency Medicine; PCP Internal Medicine; Visit Provider Nurse Practitioner
DX: I50.813 Acute on chronic right heart failure (principal); J96.11 Chronic respiratory failure with hypoxia; M79.89 Other specified soft tissue disorders; F03.90 Unspecified dementia, unspecified severity, without behavioral disturbance, psychotic disturbance, mood disturbance, and anxiety; Z99.81 Dependence on supplemental oxygen; E11.9 Type 2 diabetes mellitus without complications; N40.0 Benign prostatic hyperplasia without lower urinary tract symptoms
CPT/HCPCS: 36415; 71045; 71046; 80048; 80053; 82948; 83735; 83880; 85025; 85027; 85055; 93005; 96374; 96375; 96376; 97161; 97165; 99285; A9270; G0378; J1815; J1940; J3475

== ENCOUNTER 2021-07-10 14:06 | Inpatient (IN) | payer MEDICARE, MEDICAID, SELFPAY ==
[2021-07-10] VITALS (12 sets, daily range): BP systolic 101–132; BP diastolic 54–76; PULSE 69–87; RESP 14–19; TEMP 36.2–36.6; O2SAT 90–95
--- NOTE | ~2021-07-10 | XR_ITS ---
EXAMINATION: XR chest 2V DATE: 07/10/2021 15:16 INDICATION: Congestive heart failure, weight gain, shortness of breath TECHNIQUE: AP and lateral views of the chest are obtained. COMPARISON: 07/03/2021 FINDINGS: Cardiomegaly is noted. There is a mild diffuse interstitial pattern. There are small pleura l effusions. There are associated bibasilar airspace opacities. There is no pneumothorax. 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 There is severe thoracic spondylosis. IMPRESSION: 1. Cardiomegaly with moderate pulmonary edema. 2. Small pleural effusions. 3. Bibasilar airspace opacities, likely atelectasis. Reviewed, dictated and finalized at location F.
--- NOTE | ~2021-07-10 | XR_ITS ---
EXAMINATION: XR chest 1V portable DATE: 07/12/2021 05:33 INDICATION: Congestive heart failure. TECHNIQUE: A single frontal view of the chest was obtained. COMPARISON: Chest 2 views 07/10/2021 FINDINGS: There are airspace opacities in the lower lung zones. There is a diffuse interstitial patte rn in the lungs. No pleural effusion or pneumothorax. Cardiomegaly is noted. IMPRESSION: 1. Diffuse lung disease with mild worsening at left lung base, likely a combination mild pulmonary ed vincent and basilar atelectasis versus pneumonia. 2. Cardiomegaly. Reviewed, dictated and finalized at location A. IMPRESSION: 1. Diffuse lung disease with mild worsening at left lung base, likely a combina tion mild pulmonary edema and basilar atelectasis versus pneumonia. 2. Cardiomegaly.
--- NOTE | ~2021-07-10 | XR_ITS ---
EXAMINATION: XR abdomen/kub 1V DATE: 07/11/2021 12:55 INDICATION: Abdominal distention TECHNIQUE: A supine view of the abdomen on 2 radiographs was obtained. COMPARISON: None. FINDINGS: Nondilated gas-filled loops of large and small bowel scattered throughout the abdomen and pelvis. Pos toperative changes with surgical clips in the epigastric region and multiple sutures throughout the a bdomen. Elevation of the left hemidiaphragm. Mild opacities at the right lung base suggesting small p leural effusion and associated atelectasis and/or pneumonia. Pain pump projects of the right lower qu adrant. IMPRESSION: 1. Nonspecific nonobstructive bowel gas pattern. 2. Small right pleural effusion with right basilar atelectasis versus pneumonia. 2. Elevation the right hemidiaphragm. Reviewed, dictated and finalized at location B. IMPRESSION: 1. Nonspecific nonobstructive bowel gas pattern. 2. Small right pleural effusion with right basilar atelectasis versus pneumonia . 2. Elevation the right hemidiaphragm.
--- NOTE | 2021-07-10 14:14 | ECG_ITS ---
Measurements Intervals [place] Rate: 245 P: ID: 0 QRS: 121 QRSD: 108 T: -32 QT: 401 QTc: 479 Interpretive Statements POSSIBLE ATYPICAL ATRIAL FLUTTER/TACHYCARDIA LOW QRS VOLTAGE IN EXTREMITY LEADS [QRS DEFLECTION < 0.5 mV IN LIMB LEADS] BASELINE ARTIFACT COMPARED TO ECG 07/01/2021 16:17:39 NO SIGNIFICANT CHANGE Electronically Signed On 07-10-2021 20:13:40 CDT by Lindsay Chatman M.D.
[2021-07-10 14:39] LABS: Basophils Percent Auto 0.5 % (0.2-1.2); Eosinophils Percent Auto 0.4 % (0-4.4); Hematocrit 36.3 % (42.0-52.0); Hemoglobin 9.9 g/dL (14.0-18.0); Immature Granulocyte Absolute 0.14 K/mm3 (0.00-0.031); Immature Granulocyte Percent A 1.6 % (0-0.5); Immature Platelet Fraction Pct 12.9 % (0.9-11.2); Lymphocytes Absolute Auto 0.41 K/mm3 (0.9-3.2); Lymphocytes Percent Auto 4.8 % (18.3-44.2); Mean Corpuscular HGB Conc 27.3 g/dl (32-36); Mean Corpuscular Hemoglobin 25.9 pg (26-34); Mean Platelet Volume 13.3 fl (7.4-10.4); Monocytes Absolute Auto 0.8 K/mm3 (0.1-0.6); Monocytes Percent Auto 8.8 % (2.6-8.5); Neutrophils Absolute Auto 7.1 K/mm3 (1.3-6.7); Neutrophils Percent Auto 83.9 % (45.5-73.1); Platelet Count Result 118 k/mm3 (150-375); Red Blood Count 3.82 M/mm3 (4.6-6.20); Red Cell Distribution Width 19.3 % (11.5-14.5); White Blood Count 8.5 K/mm3 (4.5-10.0)
[2021-07-10 14:48] LABS: INR 1.2; Prothrombin Time 15.1 Seconds (11.1-14.7)
[2021-07-10 14:49] LABS: Alanine Aminotransferase 15 U/L (4-50); Albumin Level 3.4 g/dL (3.5-5.1); Alkaline Phosphatase 105 U/L (38-126); Anion Gap 12 mmol/L (8-16); Aspartate Amino Transferase 32 U/L (17-59); Bilirubin,Total 0.7 mg/dL (0.2-1.3); Blood Urea Nitrogen 45 mg/dL (9-20); Calcium 7.9 mg/dL (8.4-10.2); Carbon Dioxide 31 mmol/L (22-30); Chloride 94 mmol/L (98-107); Estimated Glomerular Filt Rate 36; Glucose 117 mg/dL (65-110); Partial Thromboplastin Time 35.9 SECONDS (22.3-36.8); Potassium 5.4 mmol/L (3.4-5.0); Sodium 137 mmol/L (137-145)
[2021-07-10 15:01] LABS: NT Pro B Type Natriuretic Pept 13600 pg/mL (5-100); Troponin I 0.015 ng/mL (0.000-0.034)
[2021-07-10 15:03] LABS: Platelet Estimate Decreased (Adequate)
[2021-07-10 15:04] LABS: Hypochromasia 1+ (NORMAL)
[2021-07-10 15:05] LABS: Anisocytosis 3+ (NORMAL)
[2021-07-10] MEDS: ALBUTEROL SULFATE NEB 2.5 MG/0.5 ML INH 5 MG INHALATION (15:08)
[2021-07-10] MEDS: IPRATROPIUM BR 0.02% INH SOLN 0.5 MG/2.5 ML VIAL INHALATION (15:08)
--- NOTE | 2021-07-10 16:08 | ED.SOB ---
HPI - SOB/Dyspnea General Chief Complaint: Shortness of Breath/Dyspnea Stated Complaint: increased SOB, weight gain Time Seen by Provider: 07/10/21 14:32 History of Present Illness HPI Narrative: Patient is an 80-year-old male who presents the ER with shortness of breath and lower extremity edema. Patient recently admitted to the hospital for CHF exacerbation. Improved with increased dosing of Lasix. Return home. 3 days ago he noted that his legs were beginning to swell again. His home health nurse increase his Lasix to 80 mg daily. There is no improvement. Patient began to have orthopnea and dyspnea. No increased oxygen requirement though he does have low sats here and has been turned up to 4 L. Denies chest pain or chest pressure. No fevers or chills or sweats. No productive cough. Related Data Home Medications Medication Instructions Recorded Confirmed Nuedexta See Rx Instructions .ROUTE .COMPLEX 10/24/20 07/01/21 pantoprazole 40 mg PO DAILY 10/24/20 07/01/21 pregabalin 75 mg PO TID 10/24/20 07/01/21 tamsulosin 0.4 mg PO DAILY 10/24/20 07/01/21 metformin 1,000 mg PO DAILY PRN 07/01/21 07/01/21 Allergies Allergy/AdvReac Type Severity Reaction Status Date / Time No Known Allergies Allergy Verified 03/08/21 13:30 Review of Systems Review of Systems: All systems reviewed & are unremarkable except as noted in HPI and below Constitutional: Constitutional: Denies chills, Denies fever(s) and Denies weakness ENT: Denies nasal congestion and Denies sore throat Cardiovascular: Cardiovascular: Denies chest pain, Denies rapid heart rate and Denies radiating jaw, neck or arm pain Respiratory: Respiratory: Denies cough and Reports dyspnea Gastrointestinal: Gastrointestinal: Denies abdominal pain, Denies nausea and Denies vomiting Musculoskeletal: Musculoskeletal: Denies arthralgias and Denies joint swelling Comments: Lower extremity edema PMFSH Past Medical History Medical History (Updated 07/10/21 @ 16:34 by Jamie Blair MD) Arthritis Benign prostatic hyperplasia Cerebrovascular accident 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 Chronic anemia Chronic pain Patient had a pain pump inserted in February 2019. Chronic respiratory failure with hypoxia, on home oxygen therapy Baseline oxygen requirement is 3 L nasal cannula. Congestive heart failure Echocardiogram February 2021: EF 55-60% (improved from prior echo of 45%) left ventricular septal wall motion abnormal related to bundle-branch block, grade 2 diastolic dysfunction, severe pulmonary hypertension with RVSP of 74, severe enlargement of the right atrium Coronary artery disease Gastroesophageal reflux disease History of bleeding peptic ulcer Hypertension Iron deficiency anemia Receives frequent iron infusions. Moderate pulmonary hypertension Estimated pulmonary arterial systolic pressure was 54 mmHg on echocardiogram dated 10/25/2020. Paroxysmal atrial fibrillation Pseudobulbar affect Spinal stenosis Type 2 diabetes mellitus Hemoglobin A1c was 6.3% on 10/25/2020. Surgical History Surgical History History of bilateral cataract extraction History of hernia repair Family History Family History Father Acute myocardial infarction Sibling Acute myocardial infarction Brain aneurysm Other No problems noted. Mother Breast cancer Social History Social History (Updated 07/02/21 @ 07:46 by Samantha Armas DO) Social History: Healthcare power of corporate associate attorney: Lennie Cruz, granddaughter. Code status: Full code. Smoking packs per day: 3 Smoking cigarettes per day: 60.0 Years smoked: 40 Smoking pack-years: 120.00 Smoking status: Former smoker Alcohol intake: never Substance use: never Substance use type: does not use Additional living arrangements comments: [facility]
[2021-07-10] MEDS: FUROSEMIDE INJ 100 MG/10 ML VIAL 80 MG IV PUSH (16:28)
--- NOTE | 2021-07-10 20:40 | PM.IMHP ---
H&P: HPI History of Present Illness Date/Time: Patient was placed observation status for expected length of stay less than 23 hours for management, will plan to re-evaluate tomorrow for improvement. 07/10/21 20:40 Chief Complaint: Shortness of breath Narrative: Mr. Orellana is an 80-year-old gentleman who presented emergency room with complaints of increasing shortness of breath over the last 3 days. Patient states he was hospitalized here approximately 1 week ago with similar complaints of shortness of breath and edema. Patient states that he has been monitor his weight daily and on discharge he weighed 223 lb and today he weighed 233 lb. Patient denies any oxygen at home. Patient states that he has been taking 80 mg of oral Lasix daily. Patient denies any chest discomfort, lightheadedness, dizziness, syncopal, or near syncopal episodes. Patient denies any palpitations. Patient states he has been taking all medications without any difficulty. Patient states that he he does have a granddaughter the prepares his medications for him. Upon evaluation in mention patient was noted to have an elevated BNP greater than normal. He was also noted to have elevation in his kidney function. Patient has a known history of congestive heart failure with grade 2 diastolic dysfunction as well as mild systolic dysfunction that has improved on last echo in in with a left ventricular systolic function of 55-60. Patient is also noted to have right atrial enlargement that is severe and mild tricuspid regurgitation with severe pulmonary hypertension with estimated pulmonary arterial systolic pressure 74 mm Hg. Patient has a known history of atrial fib/flutter and has been rate controlled. Review of Systems Review of Systems: A 12 point review of systems was completed patient all pertinent positive and negative per HPI the remainder are unremarkable. [facility] Past Medical History Medical History (Updated 07/10/21 @ 16:34 by Jamie Blair MD) Arthritis Benign prostatic hyperplasia Cerebrovascular accident 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 Chronic anemia Chronic pain Patient had a pain pump inserted in February 2019. Chronic respiratory failure with hypoxia, on home oxygen therapy Baseline oxygen requirement is 3 L nasal cannula. Congestive heart failure Echocardiogram February 2021: EF 55-60% (improved from prior echo of 45%) left ventricular septal wall motion abnormal related to bundle-branch block, grade 2 diastolic dysfunction, severe pulmonary hypertension with RVSP of 74, severe enlargement of the right atrium Coronary artery disease Gastroesophageal reflux disease History of bleeding peptic ulcer Hypertension Iron deficiency anemia Receives frequent iron infusions. Moderate pulmonary hypertension Estimated pulmonary arterial systolic pressure was 54 mmHg on echocardiogram dated 10/25/2020. Paroxysmal atrial fibrillation Pseudobulbar affect Spinal stenosis Type 2 diabetes mellitus Hemoglobin A1c was 6.3% on 10/25/2020. Surgical History Surgical History History of bilateral cataract extraction History of hernia repair Family History Family History Father Acute myocardial infarction Sibling Acute myocardial infarction Brain aneurysm Other No problems noted. Mother Breast cancer Social History Social History (Updated 07/02/21 @ 07:46 by Samantha Armas DO) Social History: Healthcare power of assistant prosecuting attorney: Lennie Cruz, granddaughter. Code status: Full code. Smoking packs per day: 3 Smoking cigarettes per day: 60.0 Years smoked: 40 Smoking pack-years: 120.00 Smoking status: Former smoker Tobacco type: cigarettes Second hand tobacco smoke exposure: No Alcohol intake: never Substance use: never Substance use type: does not use Additional living a
[2021-07-10 21:17] LABS: Anion Gap 10 mmol/L (8-16); Blood Urea Nitrogen 46 mg/dL (9-20); Calcium 8.2 mg/dL (8.4-10.2); Carbon Dioxide 33 mmol/L (22-30); Chloride 93 mmol/L (98-107); Estimated Glomerular Filt Rate 29; Glucose 123 mg/dL (65-110); Potassium 5.4 mmol/L (3.4-5.0); Sodium 136 mmol/L (137-145)
[2021-07-10 21:29] LABS: Troponin I 0.016 ng/mL (0.000-0.034)
[2021-07-11] VITALS (16 sets, daily range): BP systolic 123–139; BP diastolic 64–66; PULSE 52–75; RESP 16–22; TEMP 36.4–37.2; O2SAT 70–100
[2021-07-11 06:07] LABS: Basophils Percent Auto 0.5 % (0.2-1.2); Eosinophils Absolute Auto 0.1 K/mm3 (0-0.3); Hematocrit 33.5 % (42.0-52.0); Hemoglobin 9.6 g/dL (14.0-18.0); Immature Granulocyte Absolute 0.05 K/mm3 (0.00-0.031); Immature Granulocyte Percent A 0.8 % (0-0.5); Immature Platelet Fraction Pct 11.2 % (0.9-11.2); Lymphocytes Absolute Auto 0.41 K/mm3 (0.9-3.2); Lymphocytes Percent Auto 6.9 % (18.3-44.2); Mean Corpuscular HGB Conc 28.7 g/dl (32-36); Mean Corpuscular Hemoglobin 25.5 pg (26-34); Mean Corpuscular Volume 89.1 fl (80-100); Monocytes Absolute Auto 0.8 K/mm3 (0.1-0.6); Monocytes Percent Auto 13.7 % (2.6-8.5); Neutrophils Absolute Auto 4.6 K/mm3 (1.3-6.7); Neutrophils Percent Auto 77.1 % (45.5-73.1); Platelet Count Result 106 k/mm3 (150-375); Red Blood Count 3.76 M/mm3 (4.6-6.20); Red Cell Distribution Width 19.4 % (11.5-14.5); White Blood Count 5.9 K/mm3 (4.5-10.0)
[2021-07-11 06:19] LABS: Anion Gap 5 mmol/L (8-16); Blood Urea Nitrogen 53 mg/dL (9-20); Carbon Dioxide 39 mmol/L (22-30); Chloride 93 mmol/L (98-107); Estimated Glomerular Filt Rate 32; Glucose 99 mg/dL (65-110); Magnesium 1.7 mg/dL (1.6-2.3); Potassium 5.3 mmol/L (3.4-5.0); Sodium 137 mmol/L (137-145)
[2021-07-11 07:31] LABS: Hypochromasia 1+ (NORMAL); Large Platelets Present; Target Cells 1+ (NORMAL)
[2021-07-11 07:32] LABS: Ovalocytes 1+ (NORMAL)
[2021-07-11] MEDS: METOPROLOL TARTRATE 12.5 MG TABLET PO ×2 (08:26→20:35)
[2021-07-11] MEDS: MAGNESIUM OXIDE 400 MG TABLET PO ×2 (08:26→16:05)
[2021-07-11] MEDS: FUROSEMIDE INJ 40 MG/4 ML VIAL IV PUSH ×2 (08:26→16:05)
[2021-07-11] MEDS: PANTOPRAZOLE 40 MG TABLET PO (08:26)
[2021-07-11] MEDS: ASPIRIN 81 MG CHEWABLE TABLET PO (08:26)
[2021-07-11] MEDS: TAMSULOSIN HCL 0.4 MG CAPSULE PO (08:26)
[2021-07-11] MEDS: PREGABALIN (*CRX) 75 MG CAPSULE PO ×3 (08:27→16:05)
--- NOTE | 2021-07-11 09:24 | PC.NURSE ---
Earlier this morning 4l NC at 94%, c.o sob found at 70% on 4 L NC, changed to high flow tubing, titrated back to 4 L NC HF, 95% now Provider COUNTERINTELLIGENCE SPECIALIST Reji informed, pt currently on 40 mg IV push lasix bid, received this morning with morning medication, NNO at this time.
--- NOTE | 2021-07-11 11:15 | PM.IMPN ---
Progress Note: A&P Assessment and Plan (1) Acute exacerbation of CHF (congestive heart failure): Code(s): I50.9 - Heart failure, unspecified Status: Acute Assessment and Plan: Chest x-ray does show pulmonary vascular congestion BNP 54081 Looks to be a combined diastolic and systolic heart failure exacerbation No JVD noted extensive 2 to 3+ pitting edema to bilateral lower extremities, up to the thighs Echo from 03/05 shows EF of 55-60% with a grade 2 diastolic dysfunction Consult has been placed for Cardiology appreciate further recommendations Lasix 40 mg IV b.i.d. at this time Continue metoprolol 12.5mg PO BID daily weights strict intake and output (2) VALENTINE (acute kidney injury): Code(s): N17.9 - Acute kidney failure, unspecified Status: Acute Assessment and Plan: Current BUN/Cr 53/2.00 Baseline 0.08/1.20 avoid nephrotoxic medications trend labs Secondary to fluid overload (3) Acute hyperkalemia: Code(s): E87.5 - Hyperkalemia Status: Resolved Assessment and Plan: K is 5.3 today Lasix on board continue to trend labs No indication for treatment at this time (4) BPH (benign prostatic hyperplasia): Code(s): N40.0 - Benign prostatic hyperplasia without lower urinary tract symptoms Status: Acute Assessment and Plan: Continue home tamsulosin Trend urine output Post residual void showed >260 Urinary catheter has been placed (5) A-fib: Code(s): I48.91 - Unspecified atrial fibrillation Status: Acute Assessment and Plan: Seems that an EKG from the past did show some a flutter Telemonitor showed afib EKG ordered Could be contributing to his shortness of breath cardiology already on the case (6) Abdominal distension: Code(s): R14.0 - Abdominal distension (gaseous) Status: Acute Assessment and Plan: Abdomen is distended KUB ordered Trend symptoms Could be from fluid build up Time Spent With Patient Time with patient: Greater than 35 minutes Subjective Date/time seen: 07/11/21 11:15 Interval history: 07/10/21 20:40 Narrative: Mr. Orellana is an 80-year-old gentleman who presented emergency room with complaints of increasing shortness of breath over the last 3 days. Patient states he was hospitalized here approximately 1 week ago with similar complaints of shortness of breath and edema. Patient states that he has been monitor his weight daily and on discharge he weighed 223 lb and today he weighed 233 lb. Patient denies any oxygen at home. Patient states that he has been taking 80 mg of oral Lasix daily. Patient denies any chest discomfort, lightheadedness, dizziness, syncopal, or near syncopal episodes. Patient denies any palpitations. Patient states he has been taking all medications without any difficulty. Patient states that he he does have a granddaughter the prepares his medications for him. Upon evaluation in mention patient was noted to have an elevated BNP greater than normal. He was also noted to have elevation in his kidney function. Patient has a known history of congestive heart failure with grade 2 diastolic dysfunction as well as mild systolic dysfunction that has improved on last echo in in with a left ventricular systolic function of 55-60. Patient is also noted to have right atrial enlargement that is severe and mild tricuspid regurgitation with severe pulmonary hypertension with estimated pulmonary arterial systolic pressure 74 mm Hg. Patient has a known history of atrial fib/flutter and has been rate controlled. 07/11/21 1115 Patient states that he does not feel very good today. He did state that he was very short of breath when he got up to go the bathroom today. His biggest complaint was that his stomach hurts and it is very distended. He also stated that he is not able to urinate enough and fe
--- NOTE | 2021-07-11 11:15 | P.PNIM_ITS ---
Progress Note: A&P Assessment and Plan (1) Acute exacerbation of CHF (congestive heart failure): Code(s): I50.9 - Heart failure, unspecified Status: Acute Assessment and Plan: * Chest x-ray does show pulmonary vascular congestion * BNP 69779 * Looks to be a combined diastolic and systolic heart failure exacerbation * No JVD noted * extensive 2 to 3+ pitting edema to bilateral lower extremities, up to the thighs * Echo from 03/05 shows EF of 55-60% with a grade 2 diastolic dysfunction * Consult has been placed for Cardiology appreciate further recommendations * Lasix 40 mg IV b.i.d. at this time * Continue metoprolol 12.5mg PO BID * daily weights * strict intake and output (2) VALENTINE (acute kidney injury): Code(s): N17.9 - Acute kidney failure, unspecified Status: Acute Assessment and Plan: * Current BUN/Cr 53/2.00 * Baseline 0.08/1.20 * avoid nephrotoxic medications * trend labs * Secondary to fluid overload (3) Acute hyperkalemia: Code(s): E87.5 - Hyperkalemia Status: Resolved Assessment and Plan: * K is 5.3 today * Lasix on board * continue to trend labs * No indication for treatment at this time (4) BPH (benign prostatic hyperplasia): Code(s): N40.0 - Benign prostatic hyperplasia without lower urinary tract symptoms Status: Acute Assessment and Plan: * Continue home tamsulosin * Trend urine output * Post residual void showed >260 * Urinary catheter has been placed (5) A-fib: Code(s): I48.91 - Unspecified atrial fibrillation Status: Acute Assessment and Plan: * Seems that an EKG from the past did show some a flutter * Telemonitor showed afib * EKG ordered * Could be contributing to his shortness of breath * cardiology already on the case (6) Abdominal distension: Code(s): R14.0 - Abdominal distension (gaseous) Status: Acute Assessment and Plan: * Abdomen is distended * KUB ordered * Trend symptoms * Could be from fluid build up Time Spent With Patient Time with patient: Greater than 35 minutes Subjective Date/time seen: 07/11/21 11:15 Interval history: 07/10/21 20:40 Narrative: Mr. Orellana is an 80-year-old gentleman who presented emergency room with complaints of increasing shortness of breath over the last 3 days. Patient states he was hospitalized here approximately 1 week ago with similar complaints of shortness of breath and edema. Patient states that he has been monitor his weight daily and on discharge he weighed 223 lb and today he weighed 233 lb. Patient denies any oxygen at home. Patient states that he has been taking 80 mg of oral Lasix daily. Patient denies any chest discomfort, lightheadedness, dizziness, syncopal, or near syncopal episodes. Patient denies any palpitations. Patient states he has been taking all medications without any difficulty. Patient states that he he does have a granddaughter the prepares his medications for him. Upon evaluation in mention patient was noted to have an elevated BNP greater than normal. He was also noted to have elevation in his kidney function. Patient has a known history of congestive heart failure with grade 2 diastolic dysfunction as well as mild systolic dysfunction that has improved on last echo in in with a left ventricular systolic function of 55-60. Patient is also noted to have right atrial enlargement that is severe and
--- NOTE | 2021-07-11 11:22 | PC.NURSE ---
Pt c/o difficulty with urination, bladder scanning pt, reporting results to provider UI UX ENGINEER Reji, may place paz
[2021-07-11] MEDS: HYDROcodone/acetaminophen (*CRX) 5-325 MG TABLET 1 TAB PO ×2 (11:43→17:26)
--- NOTE | 2021-07-11 11:50 | PC.NURSE ---
bladder scan >265 ml report to STACY Mendoza, ordered paz insertion
--- NOTE | 2021-07-11 12:14 | PC.NURSE ---
report pt in afib to STACY Mendoza.
--- NOTE | 2021-07-11 12:15 | ECG_ITS ---
Measurements Intervals [place] Rate: 67 P: GA: 0 QRS: 122 QRSD: 106 T: 0 QT: 444 QTc: 470 Interpretive Statements ATRIAL FLUTTER/TACHYCARDIA WITH ABERRANT CONDUCTION OR VENTRICULAR PREMATURE COMPLEXES LOW QRS VOLTAGE IN EXTREMITY LEADS [QRS DEFLECTION < 0.5 mV IN LIMB LEADS] LATERAL MYOCARDIAL INFARCTION , PROBABLY OLD [40+ ms Q WAVE AND/OR ST/T ABNORMALITY IN I/aVL/V5/V6] COMPARED TO ECG 07/10/2021 14:22:57, NO SIGNIFICANT CHANGE Electronically Signed On 07-11-2021 20:55:14 CDT by Lindsay Chatman M.D.
--- NOTE | 2021-07-11 12:18 | PC.NURSE ---
ekg order per ELECTRICAL DESIGN TECHNICIAN Reji
--- NOTE | 2021-07-11 15:08 | PM.CNCAR ---
History of Present Illness History of Present Illness Consult date/time: 07/11/21 15:08 Requesting physician: Jamie Blair MD Consult reason: congestive heart failure Reason For Visit: CHF Exacerbation, VALENTINE Narrative: Zack Orellana is an 80-year-old male whom I was asked to see at the request of Dr. Blair for my advice and opinion regarding his CHF exacerbation, in consultation. He has a history of CHF, CAD, mi, and several stents the last being about 3 years ago per EMR, atrial fibrillation and atrial flutter (not on anticoagulation due to history of peptic ulcer bleed in the past), chronic respiratory failure on home O2, diabetes, hypertension, sleep apnea and iron deficiency. His usual collection systems administrator is Dr. Caban. Records from [facility] suggests he was hospitalized mm [facility] in January 2021 The patient was hospitalized from 07/01/2021 to 07/03/2021 for acute on chronic diastolic CHF and right-sided CHF he was diuresed with Lasix 40 mg IV push b.i.d... He was discharged with his usual Lasix 40 mg p.o. daily, plus 40 mg daily p.o. p.r.n. for edema and weight gain. Sounds like he still has some edema on discharge. He had a 10 lb weight gain since discharge, and he has been taking furosemide 80 mg daily., [facility] Past Medical History Medical History (Updated 07/11/21 @ 12:21 by YEN Enriquez) Arthritis Benign prostatic hyperplasia Cerebrovascular accident 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 Chronic anemia Chronic pain Patient had a pain pump inserted in February 2019. Chronic respiratory failure with hypoxia, on home oxygen therapy Baseline oxygen requirement is 3 L nasal cannula. Congestive heart failure Echocardiogram February 2021: EF 55-60% (improved from prior echo of 45%) left ventricular septal wall motion abnormal related to bundle-branch block, grade 2 diastolic dysfunction, severe pulmonary hypertension with RVSP of 74, severe enlargement of the right atrium Coronary artery disease Gastroesophageal reflux disease History of bleeding peptic ulcer Hypertension Iron deficiency anemia Receives frequent iron infusions. Moderate pulmonary hypertension Estimated pulmonary arterial systolic pressure was 54 mmHg on echocardiogram dated 10/25/2020. Paroxysmal atrial fibrillation Pseudobulbar affect Spinal stenosis Type 2 diabetes mellitus Hemoglobin A1c was 6.3% on 10/25/2020. Surgical History Surgical History History of bilateral cataract extraction History of hernia repair Family History Family History Father Acute myocardial infarction Sibling Acute myocardial infarction Brain aneurysm Other No problems noted. Mother Breast cancer Social History Social History (Updated 07/02/21 @ 07:46 by Samantha Armas DO) Social History: Healthcare power of litigation attorney associate: Lennie Cruz, granddaughter. Code status: Full code. Smoking packs per day: 3 Smoking cigarettes per day: 60.0 Years smoked: 40 Smoking pack-years: 120.00 Smoking status: Former smoker Tobacco type: cigarettes Second hand tobacco smoke exposure: No Alcohol intake: never Substance use: never Substance use type: does not use Additional living arrangements comments: The patient lives in his own home in [place]. He reports that he lives alone. He ambulates with a walker or cane but uses a wheelchair when outside of the home. 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 Spiritual care concerns: No Meds Home Medications and Allergies Home Medications Medication Instructions Recorded Confirmed Type Nuedexta See Rx Instructions .ROUTE .COMPLEX 10/24/20 07/10/21 History pantoprazole [Protonix] 40 mg PO DAILY 10/24/20 07/10/21 History pregabalin 75 mg PO TID 10/24/20
--- NOTE | 2021-07-11 15:48 | PC.NURSE ---
REc'd consult for cardiology. Pt has been seen by DR. Shankar on his last 4 admissions to [facility]; please transfer the cardiology consult to him (OK'd by PATHOLOGY LABORATORY DIRECTOR Wagner Mendoza), MD Shankar called for consult per unit secetary, Cristin today.
--- NOTE | 2021-07-11 17:06 | PM.CNCAR ---
Assessment and Plan Assessment and plan (1) Acute exacerbation of CHF (congestive heart failure): Code(s): I50.9 - Heart failure, unspecified Status: Acute Assessment and Plan: Acute on chronic diastolic heart failure. Agree with diuresis with Lasix 40 mg IV BID. He was on Lasix 40 mg PO daily at home. Monitor diuresis and renal function and electrolytes. 02/16/21 Echo: EF 55%, grade II diastolic dysfunction, mod LAE, severe GULSHAN, mild MR, RVSP 74 mmHg. Obtain echo. (2) A-fib: Code(s): I48.91 - Unspecified atrial fibrillation Status: Acute Assessment and Plan: Rate controlled on Metoprolol. No on anticoagulation due to history of severe PUD bleed and he refuses anticoagulation since. (3) Hypertension: Code(s): I10 - Essential (primary) hypertension Status: Chronic Assessment and Plan: Stable. (4) VALENTINE (acute kidney injury): Code(s): N17.9 - Acute kidney failure, unspecified Status: Acute Assessment and Plan: Worsened with Cr 2.0/GFR 32. Monitor. Baseline Cr 0.8-1.0. (5) CAD (coronary artery disease): Code(s): I25.10 - Atherosclerotic heart disease of [place] coronary artery without angina pectoris Status: Acute Assessment and Plan: Stable. On aspirin. His regular clinical services assistant is Dr. Caban at [facility] who he sees regularly. Will check lipid panel and see if he can tolerate a statin. History of Present Illness History of Present Illness Consult date/time: 07/11/21 17:06 Reason for consult: CHF. 80 yr old man presents to hospital due to sob x 3 days. His regular clinical services assistant is at [facility], Dr. Caban, and sees him regularly. He has a history of CHF, CAD with [place] and several stents (last cath about 3 years ago per patient), atrial fib/flutter (not on anticoagulation due to significant peptic ulcer bleed in the past), DM, hypertension, MALLORY, iron deficiency anemia requiring iron infusions. Reports he came to hospital yesterday afternoon after having sob progressively getting worse in last 3 days. He also noted swelling of legs and thighs. He has not changed his diet and has not consumed more salty food nor stopped his medication including Lasix. He can normally walk 20 feet with his cane prior to BARRAZA. Denies chest pain, palpitations, orthopnea, PND, dizziness. He was started on Lasix 40 mg IV BID and paz catheter placed. Reason For Visit: CHF Exacerbation, VALENTINE Review of Systems Review of Systems: All systems reviewed & are unremarkable except as noted in HPI and below Constitutional: Constitutional: Reports as per HPI, Denies chills, Reports fatigue and Denies fever(s) Cardiovascular: Cardiovascular: Reports as per HPI, Denies chest pain, Denies irregular heart rhythm, Reports leg ulcers and Reports leg edema Respiratory: Respiratory: Reports as per HPI, Reports dyspnea and Reports dyspnea on exertion Gastrointestinal: Gastrointestinal: Reports as per HPI and Denies abdominal pain Genitourinary: Genitourinary: Reports as per HPI and Denies dysuria Musculoskeletal: Musculoskeletal: Reports as per HPI Neurologic: Reports as per HPI, Denies dizziness and Denies syncope [facility] Past Medical History Medical History (Updated 07/11/21 @ 12:21 by Asher Mendoza, COMMERCIAL LINES ACCOUNT MANAGER-C) Arthritis Benign prostatic hyperplasia Cerebrovascular accident 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 Chronic anemia Chronic pain Patient had a pain pump inserted in February 2019. Chronic respiratory failure with hypoxia, on home oxygen therapy Baseline oxygen requirement is 3 L nasal cannula. Congestive heart failure Echocardiogram February 2021: EF 55-60% (improved from prior echo of 45%) left ventricular septal wall motion abnormal related to bundle-branch block, grade 2 diastolic dysfunction, severe pulmonary hypertension with RVSP of 74, severe enlargement of the right atrium Coronary artery disease [place]
--- NOTE | 2021-07-11 17:14 | PC.NURSE ---
1415 ekg shows a flutter, tachycardia with aberrant conduction or ventricular premature complexs, low qrs voltage in extemity leads <0.5 ml in limb leads, lateral myocardical infarction probably old 40 + ms q wave and or st/t abnormality in I, aVL, v5, v6 abnormal ekg vent rate 67 prn internal absent, qrs 106 ms qt/qtc 444/459 prt axes 122 0 reported to STACY Mendoza.
[2021-07-11] MEDS: DONEPEZIL HCL 5 MG TABLET PO (20:35)
[2021-07-12] VITALS (13 sets, daily range): BP systolic 110–115; BP diastolic 52–75; PULSE 54–76; RESP 18–20; TEMP 36.5–36.8; O2SAT 92–100
--- NOTE | 2021-07-12 | ECHO_ITS ---
Patient Info Name: Zack Orellana Age: 80 years : 1940 Gender: Male Ht: 67 in Wt: 240 lbs BSA: 2.32 m2 HR: 54 bpm BP: 114 / 75 mmHg Heart Rhythm: Atrial Flutter Technical Quality: Fair Exam Date: 07/12/2021 9:28 AM Exam Location: [facility] Pulmonary Patient Status: Inpatient Admit Date: 07/11/2021 Staff Ordering Physician: Waqas Shankar DO Field Collector: Mady Berkowitz RDCS Attending Provider: Ruth Sharpe MD Referring Physician: Raad KEATING; Exam Type: CA echo doppler color flow Study Info Indications - chf Complete two-dimensional, color flow and Doppler transthoracic echocardiogram is performed. Summary 1. Complete two-dimensional, color flow and Doppler transthoracic echocardiogram is performed. 2. Left ventricular chamber dimension is mildly enlarged. 3. Left ventricular systolic function is preserved, estimated at 50-55%. 4. Left ventricular septal wall motion is abnormal with septal motion related to bundle branch block. 5. The left ventricular diastolic function is grade III diastolic dysfunction. 6. E/e' 11 is mildly elevated. 7. Atrial flutter. 8. Right ventricular chamber dimension is mildly enlarged. 9. Right ventricular systolic function is moderately reduced and with abnormal TAPSE 0.9 cm. 10. Left atrial chamber dimension is mildly enlarged. 11. Right atrial chamber dimension is moderately enlarged. 12. There is mild aortic valve sclerosis. 13. There is mild mitral valve regurgitation. 14. Severe pulmonary hypertension, estimated pulmonary arterial systolic pressure is 81 mmHg. 15. Dilated inferior vena cava with >50% collapse upon inspiration consistent with elevated right atrial pressure, 10 mmHg. Left Ventricle E/e' 11 is mildly elevated. Atrial flutter. Left ventricular chamber dimension is mildly enlarged. Left ventricular systolic function is preserved, estimated at 50-55%. Left ventricular septal wall motion is abnormal with septal motion related to bundle branch block. The left ventricular diastolic function is grade III diastolic dysfunction. Right Ventricle Right ventricular systolic function is moderately reduced and with abnormal TAPSE 0.9 cm. Right ventricular chamber dimension is mildly enlarged. Left Atria Left atrial chamber dimension is mildly enlarged. Right Atria Right atrial chamber dimension is moderately enlarged. Aortic Valve The aortic valve is trileaflet. There is mild aortic valve sclerosis. There is no aortic valve stenosis. There is no aortic valve regurgitation. Pulmonic Valve There is no pulmonic regurgitation. Mitral Valve There is no mitral valve stenosis. There is mild mitral valve regurgitation. Tricuspid Valve There is no tricuspid valve regurgitation. Severe pulmonary hypertension, estimated pulmonary arterial systolic pressure is 81 mmHg. Pericardium/Pleural There is no pericardial effusion. Inferior Vena Cava Dilated inferior vena cava with >50% collapse upon inspiration consistent with elevated right atrial pressure, 10 mmHg. Aorta The aortic root size at the sinus of Valsalva is normal. Left Ventricular Outflow Tract Name Value Normal LVOT 2D LVOT Diameter 2.0 cm
[2021-07-12 06:19] LABS: Basophils Percent Auto 0.2 % (0.2-1.2); Eosinophils Absolute Auto 0.1 K/mm3 (0-0.3); Eosinophils Percent Auto 1.9 % (0-4.4); Hematocrit 32.9 % (42.0-52.0); Hemoglobin 9.5 g/dL (14.0-18.0); Immature Granulocyte Absolute 0.03 K/mm3 (0.00-0.031); Immature Granulocyte Percent A 0.5 % (0-0.5); Immature Platelet Fraction Pct 10.9 % (0.9-11.2); Lymphocytes Absolute Auto 0.47 K/mm3 (0.9-3.2); Mean Corpuscular HGB Conc 28.9 g/dl (32-36); Mean Corpuscular Hemoglobin 25.9 pg (26-34); Mean Corpuscular Volume 89.6 fl (80-100); Mean Platelet Volume 12.3 fl (7.4-10.4); Monocytes Absolute Auto 0.8 K/mm3 (0.1-0.6); Monocytes Percent Auto 13.4 % (2.6-8.5); Neutrophils Absolute Auto 4.5 K/mm3 (1.3-6.7); Platelet Count Result 120 k/mm3 (150-375); Red Blood Count 3.67 M/mm3 (4.6-6.20); Red Cell Distribution Width 19.3 % (11.5-14.5); White Blood Count 5.9 K/mm3 (4.5-10.0)
[2021-07-12 06:40] LABS: Alanine Aminotransferase 11 U/L (4-50); Albumin Level 3.1 g/dL (3.5-5.1); Alkaline Phosphatase 106 U/L (38-126); Aspartate Amino Transferase 21 U/L (17-59); Bilirubin,Total 0.5 mg/dL (0.2-1.3); Blood Urea Nitrogen 47 mg/dL (9-20); Calcium 7.8 mg/dL (8.4-10.2); Carbon Dioxide > 40 mmol/L (22-30); Chloride 92 mmol/L (98-107); Cholesterol 116 mg/dL (0-200); Estimated Glomerular Filt Rate 45; Glucose 153 mg/dL (65-110); HDL Direct 50 mg/dL; Magnesium 1.6 mg/dL (1.6-2.3); Potassium 4.4 mmol/L (3.4-5.0); Sodium 137 mmol/L (137-145); Triglycerides 72 mg/dL (<150)
[2021-07-12 06:45] LABS: LDL Cholesterol Direct 38 mg/dL
[2021-07-12 07:31] LABS: Hypochromasia 2+ (NORMAL)
[2021-07-12 07:32] LABS: Anisocytosis 1+ (NORMAL); Poikilocytosis 1+ (NORMAL)
--- NOTE | 2021-07-12 07:51 | PM.PNCARD ---
Progress Note: A&P Assessment and Plan (1) Acute exacerbation of CHF (congestive heart failure): Code(s): I50.9 - Heart failure, unspecified Status: Acute Assessment and Plan: Improving. Acute on chronic diastolic heart failure. Agree with diuresis with Lasix 40 mg IV BID. He was on Lasix 40 mg PO daily at home. Monitor diuresis and renal function and electrolytes. 02/16/21 Echo: EF 55%, grade II diastolic dysfunction, mod LAE, severe GULSHAN, mild MR, RVSP 74 mmHg. Obtain echo. (2) A-fib: Code(s): I48.91 - Unspecified atrial fibrillation Status: Acute Assessment and Plan: Rate controlled on Metoprolol. No on anticoagulation due to history of severe PUD bleed and he refuses anticoagulation since. (3) Hypertension: Code(s): I10 - Essential (primary) hypertension Status: Chronic Assessment and Plan: Stable. (4) VALENTINE (acute kidney injury): Code(s): N17.9 - Acute kidney failure, unspecified Status: Acute Assessment and Plan: Worsened with Cr 2.0/GFR 32. Monitor. Baseline Cr 0.8-1.0. (5) CAD (coronary artery disease): Code(s): I25.10 - Atherosclerotic heart disease of [place] coronary artery without angina pectoris Status: Acute Assessment and Plan: Stable. On aspirin. His regular tester operator is Dr. Caban at [facility] who he sees regularly. He has low normal cholesterol levels. Will start low dose Pravastatin 5 mg daily. Subjective Date/time seen: 07/12/21 07:51 Reports breathing is better and edema improving. No chest pain. Exam Const: General: cooperative, healthy appearing and comfortable Resp: Auscultation: no crackles, rales, no rhonchi, no wheezes and diminished lung sounds Cardio: Jugular venous distension: no JVD Rate: regular rate Rhythm: abnormal rhythm Heart sounds: no murmurs Peripheral pulses: dorsalis pedis present GI: GI Palp: No abdominal tenderness and Yes Soft to palpation Neuro: General: oriented to person, oriented to place and oriented to time Extrem: Right lower extremity: edema Left lower extremity: edema Other: Mild edema of both legs Objective Data Vital Signs Vital Signs: Vital Signs - 24 hr 07/11/21 08:00 07/11/21 08:25 07/11/21 08:26 Temperature Pulse Rate 72 74 Respiratory Rate 18 Blood Pressure Pulse Oximetry 100 94 07/11/21 09:24 07/11/21 09:38 07/11/21 09:39 Temperature 97.6 F Pulse Rate 73 Respiratory Rate 18 Blood Pressure 139/65 Pulse Oximetry 70 L 94 95 07/11/21 10:03 07/11/21 12:00 07/11/21 14:00 Temperature 98.1 F Pulse Rate 65 65 Respiratory Rate 16 Blood Pressure 123/66 Pulse Oximetry 100 91 07/11/21 16:00 07/11/21 20:00 07/11/21 20:35 Temperature Pulse Rate 63 64 68 Respiratory Rate Blood Pressure Pulse Oximetry 93 07/11/21 20:37 07/11/21 22:00 07/12/21 00:00 Temperature 98.9 F Pulse Rate 64 62 Respiratory Rate 22 H Blood Pressure 129/64 Pulse Oximetry 93 90 07/12/21 04:00 07/12/21 06:00 Temperature 98.1 F Pulse Rate 70 54 L Respiratory Rate 20 Blood Pressure 114/75 Pulse Oximetry 94 Intake/Output Intake/Output: Intake & Output 07/09/21 07/10/21 07/11/21 07/12/21 23:59 23:59 23:59 23:59 Intake Total 2860 200 Output Total 1150 700 Balance 1710 -500 Meds/Results Medications: Active Medications Generic Name Dose Route Start Last Admin Trade Name Freq PRN Reason Stop Dose Admin Acetaminophen 650 mg 07/10/21 16:08 Acetaminophen 325 Mg Tablet PO Q4H PRN Mild Pain (1-3) or Fever Hydrocodone Bitart/Acetaminophen 1 tab 07/11/21 07:44 07/11/21 17:26 Hydrocodone/Acetaminophen (*Crx) 5-325 Mg Tablet PO 1 tab Q6H PRN Administration Pain Rated 4-10 Aspirin 81 mg 07/11/21 08:00 07/11/21 08:26 Aspirin 81 Mg Chewable Tablet PO 81 mg DAILY@0800 REHAN Administration Donepezil HCl 5 mg 07/11/21 21:00 07/11/21 20:35 Donepezil H
[2021-07-12] MEDS: PRAVASTATIN SODIUM 5 MG TABLET PO (08:19)
[2021-07-12] MEDS: PANTOPRAZOLE 40 MG TABLET PO (08:20)
[2021-07-12] MEDS: METOPROLOL TARTRATE 12.5 MG TABLET PO ×2 (08:20→20:42)
[2021-07-12] MEDS: PREGABALIN (*CRX) 75 MG CAPSULE PO ×3 (08:20→16:53)
[2021-07-12] MEDS: FUROSEMIDE INJ 40 MG/4 ML VIAL IV PUSH ×2 (08:20→16:53)
[2021-07-12] MEDS: TAMSULOSIN HCL 0.4 MG CAPSULE PO (08:20)
[2021-07-12] MEDS: ASPIRIN 81 MG CHEWABLE TABLET PO (08:20)
[2021-07-12] MEDS: MAGNESIUM OXIDE 400 MG TABLET PO ×3 (08:20→16:53)
[2021-07-12] MEDS: HYDROcodone/acetaminophen (*CRX) 5-325 MG TABLET 1 TAB PO ×3 (10:19→23:42)
--- NOTE | 2021-07-12 14:50 | P.PNIM_ITS ---
Progress Note: A&P Assessment and Plan (1) Acute exacerbation of CHF (congestive heart failure): Code(s): I50.9 - Heart failure, unspecified Status: Acute Assessment and Plan: * Chest x-ray does show pulmonary vascular congestion * BNP 33093 * Looks to be a combined diastolic and systolic heart failure exacerbation * No JVD noted * extensive 2 to 3+ pitting edema to bilateral lower extremities, up to the thighs * Echo from 03/05 shows EF of 55-60% with a grade 2 diastolic dysfunction * Consult has been placed for Cardiology appreciate further recommendations * Lasix 40 mg IV b.i.d. at this time * Continue metoprolol 12.5mg PO BID * daily weights * strict intake and output 07/12/2021 interval history: patient is 80-year-old morbidly obese presented with shortness of breath is found to have a acute on chronic diastolic congestive heart failure, today cardiac echo showed left ventricle ejection fraction 50 55% and grade 3 diastolic dysfunction, is being diuresed with IV Lasix [address] the patient on fluid restriction 1200 cc per day will continue to monitor will have a PT OT evaluate the patient further recommendation to follow (2) VALENTINE (acute kidney injury): Code(s): N17.9 - Acute kidney failure, unspecified Status: Acute Assessment and Plan: * Current BUN/Cr 53/2.00 * Baseline 0.08/1.20 * avoid nephrotoxic medications * trend labs * Secondary to fluid overload (3) Acute hyperkalemia: Code(s): E87.5 - Hyperkalemia Status: Resolved Assessment and Plan: * K is 5.3 today * Lasix on board * continue to trend labs * No indication for treatment at this time (4) BPH (benign prostatic hyperplasia): Code(s): N40.0 - Benign prostatic hyperplasia without lower urinary tract symptoms Status: Acute Assessment and Plan: * Continue home tamsulosin * Trend urine output * Post residual void showed >260 * Urinary catheter has been placed (5) A-fib: Code(s): I48.91 - Unspecified atrial fibrillation Status: Acute Assessment and Plan: * Seems that an EKG from the past did show some a flutter * Telemonitor showed afib * EKG ordered * Could be contributing to his shortness of breath * cardiology already on the case (6) Abdominal distension: Code(s): R14.0 - Abdominal distension (gaseous) Status: Acute Assessment and Plan: * Abdomen is distended * KUB ordered * Trend symptoms * Could be from fluid build up Subjective Date/time seen: 07/12/21 14:50 HPI-Narrative: Mr. Orellana is an 80-year-old gentleman who presented emergency room with complaints of increasing shortness of breath over the last 3 days. Patient states he was hospitalized here approximately 1 week ago with similar complaints of shortness of breath and edema. Patient states that he has been monitor his weight daily and on discharge he weighed 223 lb and today he weighed 233 lb. Patient denies any oxygen at home. Patient states that he has been taking 80 mg of oral Lasix daily. Patient denies any chest discomfort, lightheadedness, dizziness, syncopal, or near syncopal episodes. Patient denies any palpitations. Patient states he has been taking all medications without any difficulty. Patient states that he he does have a granddaughter the prepares his medications for him. Upon evaluation in mention patient was noted to have an elevated BNP greater than n
--- NOTE | 2021-07-12 14:50 | PM.IMPN ---
Progress Note: A&P Assessment and Plan (1) Acute exacerbation of CHF (congestive heart failure): Code(s): I50.9 - Heart failure, unspecified Status: Acute Assessment and Plan: Chest x-ray does show pulmonary vascular congestion BNP 89046 Looks to be a combined diastolic and systolic heart failure exacerbation No JVD noted extensive 2 to 3+ pitting edema to bilateral lower extremities, up to the thighs Echo from 03/05 shows EF of 55-60% with a grade 2 diastolic dysfunction Consult has been placed for Cardiology appreciate further recommendations Lasix 40 mg IV b.i.d. at this time Continue metoprolol 12.5mg PO BID daily weights strict intake and output 07/12/2021 interval history: patient is 80-year-old morbidly obese presented with shortness of breath is found to have a acute on chronic diastolic congestive heart failure, today cardiac echo showed left ventricle ejection fraction 50 55% and grade 3 diastolic dysfunction, is being diuresed with IV Lasix [address] the patient on fluid restriction 1200 cc per day will continue to monitor will have a PT OT evaluate the patient further recommendation to follow (2) VALENTINE (acute kidney injury): Code(s): N17.9 - Acute kidney failure, unspecified Status: Acute Assessment and Plan: Current BUN/Cr 53/2.00 Baseline 0.08/1.20 avoid nephrotoxic medications trend labs Secondary to fluid overload (3) Acute hyperkalemia: Code(s): E87.5 - Hyperkalemia Status: Resolved Assessment and Plan: K is 5.3 today Lasix on board continue to trend labs No indication for treatment at this time (4) BPH (benign prostatic hyperplasia): Code(s): N40.0 - Benign prostatic hyperplasia without lower urinary tract symptoms Status: Acute Assessment and Plan: Continue home tamsulosin Trend urine output Post residual void showed >260 Urinary catheter has been placed (5) A-fib: Code(s): I48.91 - Unspecified atrial fibrillation Status: Acute Assessment and Plan: Seems that an EKG from the past did show some a flutter Telemonitor showed afib EKG ordered Could be contributing to his shortness of breath cardiology already on the case (6) Abdominal distension: Code(s): R14.0 - Abdominal distension (gaseous) Status: Acute Assessment and Plan: Abdomen is distended KUB ordered Trend symptoms Could be from fluid build up Subjective Date/time seen: 07/12/21 14:50 HPI-Narrative: Mr. Orellana is an 80-year-old gentleman who presented emergency room with complaints of increasing shortness of breath over the last 3 days. Patient states he was hospitalized here approximately 1 week ago with similar complaints of shortness of breath and edema. Patient states that he has been monitor his weight daily and on discharge he weighed 223 lb and today he weighed 233 lb. Patient denies any oxygen at home. Patient states that he has been taking 80 mg of oral Lasix daily. Patient denies any chest discomfort, lightheadedness, dizziness, syncopal, or near syncopal episodes. Patient denies any palpitations. Patient states he has been taking all medications without any difficulty. Patient states that he he does have a granddaughter the prepares his medications for him. Upon evaluation in mention patient was noted to have an elevated BNP greater than normal. He was also noted to have elevation in his kidney function. Patient has a known history of congestive heart failure with grade 2 diastolic dysfunction as well as mild systolic dysfunction that has improved on last echo in in with a left ventricular systolic function of 55-60. Patient is also noted to have right atrial enlargement that is severe and mild tricuspid regurgitation with severe pulmonary hypertension with estimated pulmonary arterial systolic pressure 74 mm Hg.
[2021-07-12] MEDS: DONEPEZIL HCL 5 MG TABLET PO (20:42)
[2021-07-13] VITALS: PULSE 70
[2021-07-13 04:00] VITALS: PULSE 74
[2021-07-13 05:37] VITALS: BP 115/60; PULSE 72; RESP 18; TEMP 36.7; O2SAT 97
[2021-07-13 05:55] LABS: Hematocrit 32.6 % (42.0-52.0); Hemoglobin 9.4 g/dL (14.0-18.0); Immature Platelet Fraction Pct 9.5 % (0.9-11.2); Mean Corpuscular HGB Conc 28.8 g/dl (32-36); Mean Corpuscular Hemoglobin 25.9 pg (26-34); Mean Corpuscular Volume 89.8 fl (80-100); Mean Platelet Volume 12.4 fl (7.4-10.4); Platelet Count Result 107 k/mm3 (150-375); Red Blood Count 3.63 M/mm3 (4.6-6.20); Red Cell Distribution Width 19.2 % (11.5-14.5); White Blood Count 5.1 K/mm3 (4.5-10.0)
[2021-07-13 06:24] LABS: Blood Urea Nitrogen 35 mg/dL (9-20); Calcium 7.7 mg/dL (8.4-10.2); Carbon Dioxide > 40 mmol/L (22-30); Chloride 94 mmol/L (98-107); Estimated Glomerular Filt Rate > 60; Glucose 141 mg/dL (65-110); Magnesium 1.5 mg/dL (1.6-2.3); Potassium 3.9 mmol/L (3.4-5.0); Sodium 137 mmol/L (137-145)
[2021-07-13 08:00] VITALS: PULSE 75
[2021-07-13] MEDS: ASPIRIN 81 MG CHEWABLE TABLET PO (08:07)
[2021-07-13] MEDS: TAMSULOSIN HCL 0.4 MG CAPSULE PO (08:07)
[2021-07-13] MEDS: PANTOPRAZOLE 40 MG TABLET PO (08:07)
[2021-07-13] MEDS: MAGNESIUM OXIDE 400 MG TABLET PO (08:07)
[2021-07-13] MEDS: PRAVASTATIN SODIUM 5 MG TABLET PO (08:07)
[2021-07-13 08:08] VITALS: PULSE 78
[2021-07-13] MEDS: FUROSEMIDE INJ 40 MG/4 ML VIAL IV PUSH (08:08)
[2021-07-13] MEDS: METOPROLOL TARTRATE 12.5 MG TABLET PO (08:08)
[2021-07-13] MEDS: PREGABALIN (*CRX) 75 MG CAPSULE PO (08:08)
--- NOTE | 2021-07-13 08:22 | PM.PNCARD ---
Progress Note: A&P Assessment and Plan (1) Acute exacerbation of CHF (congestive heart failure): Code(s): I50.9 - Heart failure, unspecified Status: Acute Assessment and Plan: Improving. Acute on chronic diastolic heart failure. Agree with diuresis with Lasix 40 mg IV BID. He was on Lasix 40 mg PO daily at home. Monitor diuresis and renal function and electrolytes. 02/16/21 Echo: EF 55%, grade II diastolic dysfunction, mod LAE, severe GULSHAN, mild MR, RVSP 74 mmHg. 07/12/21 Echo: EF 50-55%, grade III diastolic dysfunction (E/e' 11), mild RVE/hypokinesis, mild LAE, mod GULSHAN, mild MR, RVSP 81 mmHg s/o severe pulm hypertension. May d/c home from cardiology standpoint. And upon discharge change Lasix 40 mg PO BID (home dose was 40 mg daily). Have him f/u with his regular retort cooler, Dr. Caban, in 1-2 weeks. (2) A-fib: Code(s): I48.91 - Unspecified atrial fibrillation Status: Acute Assessment and Plan: Rate controlled on Metoprolol. No on anticoagulation due to history of severe PUD bleed and he refuses anticoagulation since. (3) Hypertension: Code(s): I10 - Essential (primary) hypertension Status: Chronic Assessment and Plan: Stable. (4) VALENTINE (acute kidney injury): Code(s): N17.9 - Acute kidney failure, unspecified Status: Acute Assessment and Plan: Renal function improved to Cr 1.0 which is his baseline with diuresis. Baseline Cr 0.8-1.0. (5) CAD (coronary artery disease): Code(s): I25.10 - Atherosclerotic heart disease of [place] coronary artery without angina pectoris Status: Acute Assessment and Plan: Stable. On aspirin. His regular retort cooler is Dr. Caban at [facility] who he sees regularly. Started low dose Pravastatin 5 mg daily. Subjective Date/time seen: 07/13/21 08:22 Reports he is feeling at baseline. No sob or chest pain. Exam Const: General: cooperative, healthy appearing and comfortable Resp: Auscultation: no crackles, rales, no rhonchi, no wheezes and diminished lung sounds Cardio: Jugular venous distension: no JVD Rate: regular rate Rhythm: abnormal rhythm Heart sounds: no murmurs Peripheral pulses: dorsalis pedis present GI: GI Palp: No abdominal tenderness and Yes Soft to palpation Neuro: General: oriented to person, oriented to place and oriented to time Extrem: Right lower extremity: edema Left lower extremity: edema Other: Mild edema of both legs Objective Data Vital Signs Vital Signs: Vital Signs - 24 hr 07/12/21 08:34 07/12/21 09:00 07/12/21 12:00 Temperature Pulse Rate 69 Respiratory Rate Blood Pressure Pulse Oximetry 92 92 07/12/21 14:00 07/12/21 16:00 07/12/21 20:00 Temperature 98.3 F Pulse Rate 64 71 76 Respiratory Rate 18 20 Blood Pressure 110/58 L Pulse Oximetry 92 100 07/12/21 20:42 07/12/21 21:50 07/13/21 00:00 Temperature 97.7 F Pulse Rate 71 75 70 Respiratory Rate 20 Blood Pressure 115/52 L Pulse Oximetry 100 07/13/21 04:00 07/13/21 05:37 07/13/21 08:08 Temperature 98.1 F Pulse Rate 74 72 78 Respiratory Rate 18 Blood Pressure 115/60 Pulse Oximetry 97 Intake/Output Intake/Output: Intake & Output 07/10/21 07/11/21 07/12/21 07/13/21 23:59 23:59 23:59 23:59 Intake Total 2860 1010 Output Total 1150 2750 1300 Balance 1710 -1740 -1300 Meds/Results Medications: Active Medications Generic Name Dose Route Start Last Admin Trade Name Rubensq PRN Reason Stop Dose Admin Acetaminophen 650 mg 07/10/21 16:08 Acetaminophen 325 Mg Tablet PO Q4H PRN Mild Pain (1-3) or Fever Hydrocodone Bitart/Acetaminophen 1 tab 07/11/21 07:44 07/12/21 23:42 Hydrocodone/Acetaminophen (*Crx) 5-325 Mg Tablet PO 1 tab Q6H PRN Administration Pain Rated 4-10 Aspirin 81 mg 07/11/21 08:00 07/13/21 08:07 Aspirin 81 Mg Chewable Tablet PO 81 mg DAILY@0800 REHAN Administration Donepezil HCl 5 mg
[2021-07-13 08:40] VITALS: O2SAT 97
[2021-07-13] MEDS: MAGNESIUM SULF 2 GM/WATER 50ML 2 GM/50 ML BAG IVPB (10:13)
--- NOTE | 2021-07-13 10:32 | P.DS_ITS ---
DS: Admitting Diagnosis Discharge Date 07/13/2021 Admitting Diagnosis Shortness of breath DS: Discharge Diagnosis Discharge Diagnosis (1) Acute exacerbation of CHF (congestive heart failure): Code(s): I50.9 - Heart failure, unspecified Status: Acute Assessment and Plan: * Chest x-ray does show pulmonary vascular congestion * BNP 78786 * Looks to be a combined diastolic and systolic heart failure exacerbation * No JVD noted * extensive 2 to 3+ pitting edema to bilateral lower extremities, up to the thighs * Echo from 03/05 shows EF of 55-60% with a grade 2 diastolic dysfunction * Consult has been placed for Cardiology appreciate further recommendations * Lasix 40 mg IV b.i.d. at this time * Continue metoprolol 12.5mg PO BID * daily weights * strict intake and output 07/12/2021 interval history: patient is 80-year-old morbidly obese presented with shortness of breath is found to have a acute on chronic diastolic congestive heart failure, today cardiac echo showed left ventricle ejection fraction 50 55% and grade 3 diastolic dysfunction, is being diuresed with IV Lasix [address] the patient on fluid restriction 1200 cc per day will continue to monitor will have a PT OT evaluate the patient further recommendation to follow (2) VALENTINE (acute kidney injury): Code(s): N17.9 - Acute kidney failure, unspecified Status: Acute Assessment and Plan: * Current BUN/Cr 53/2.00 * Baseline 0.08/1.20 * avoid nephrotoxic medications * trend labs * Secondary to fluid overload (3) Acute hyperkalemia: Code(s): E87.5 - Hyperkalemia Status: Resolved Assessment and Plan: * K is 5.3 today * Lasix on board * continue to trend labs * No indication for treatment at this time (4) BPH (benign prostatic hyperplasia): Code(s): N40.0 - Benign prostatic hyperplasia without lower urinary tract symptoms Status: Acute Assessment and Plan: * Continue home tamsulosin * Trend urine output * Post residual void showed >260 * Urinary catheter has been placed (5) A-fib: Code(s): I48.91 - Unspecified atrial fibrillation Status: Acute Assessment and Plan: * Seems that an EKG from the past did show some a flutter * Telemonitor showed afib * EKG ordered * Could be contributing to his shortness of breath * cardiology already on the case (6) Abdominal distension: Code(s): R14.0 - Abdominal distension (gaseous) Status: Acute Assessment and Plan: * Abdomen is distended * KUB ordered * Trend symptoms * Could be from fluid build up DS: Summary Hospital Course Reason for hospitalization: Chief Complaint: Shortness of breath, leg swelling Narrative: 80-year-old male with past medical history of mild dementia, right- sided heart failure, diastolic heart failure, chronic hypoxic respiratory failure and diabetes who presented to the ER via EMS due to increasing shortness of breath for 2 days. The patient has increased shortness breath has also been accompanied by increased lower extremity edema up through the thighs including his scrotum. His extremity edema is been worse for the last several days. He has gained 5 lb overnight. He has usually on 3 L nasal cannula at all times and when he arrived to the ER he actually required increase in his oxygen to 4 L nasal cannula. He denies any chest pain or palpitations. He states that he
--- NOTE | 2021-07-13 10:32 | PM.DS ---
DS: Admitting Diagnosis Discharge Date 07/13/2021 Admitting Diagnosis Shortness of breath DS: Discharge Diagnosis Discharge Diagnosis (1) Acute exacerbation of CHF (congestive heart failure): Code(s): I50.9 - Heart failure, unspecified Status: Acute Assessment and Plan: Chest x-ray does show pulmonary vascular congestion BNP 32434 Looks to be a combined diastolic and systolic heart failure exacerbation No JVD noted extensive 2 to 3+ pitting edema to bilateral lower extremities, up to the thighs Echo from 03/05 shows EF of 55-60% with a grade 2 diastolic dysfunction Consult has been placed for Cardiology appreciate further recommendations Lasix 40 mg IV b.i.d. at this time Continue metoprolol 12.5mg PO BID daily weights strict intake and output 07/12/2021 interval history: patient is 80-year-old morbidly obese presented with shortness of breath is found to have a acute on chronic diastolic congestive heart failure, today cardiac echo showed left ventricle ejection fraction 50 55% and grade 3 diastolic dysfunction, is being diuresed with IV Lasix [address] the patient on fluid restriction 1200 cc per day will continue to monitor will have a PT OT evaluate the patient further recommendation to follow (2) VALENTINE (acute kidney injury): Code(s): N17.9 - Acute kidney failure, unspecified Status: Acute Assessment and Plan: Current BUN/Cr 53/2.00 Baseline 0.08/1.20 avoid nephrotoxic medications trend labs Secondary to fluid overload (3) Acute hyperkalemia: Code(s): E87.5 - Hyperkalemia Status: Resolved Assessment and Plan: K is 5.3 today Lasix on board continue to trend labs No indication for treatment at this time (4) BPH (benign prostatic hyperplasia): Code(s): N40.0 - Benign prostatic hyperplasia without lower urinary tract symptoms Status: Acute Assessment and Plan: Continue home tamsulosin Trend urine output Post residual void showed >260 Urinary catheter has been placed (5) A-fib: Code(s): I48.91 - Unspecified atrial fibrillation Status: Acute Assessment and Plan: Seems that an EKG from the past did show some a flutter Telemonitor showed afib EKG ordered Could be contributing to his shortness of breath cardiology already on the case (6) Abdominal distension: Code(s): R14.0 - Abdominal distension (gaseous) Status: Acute Assessment and Plan: Abdomen is distended KUB ordered Trend symptoms Could be from fluid build up DS: Summary Hospital Course Reason for hospitalization: Chief Complaint: Shortness of breath, leg swelling Narrative: 80-year-old male with past medical history of mild dementia, right-sided heart failure, diastolic heart failure, chronic hypoxic respiratory failure and diabetes who presented to the ER via EMS due to increasing shortness of breath for 2 days. The patient has increased shortness breath has also been accompanied by increased lower extremity edema up through the thighs including his scrotum. His extremity edema is been worse for the last several days. He has gained 5 lb overnight. He has usually on 3 L nasal cannula at all times and when he arrived to the ER he actually required increase in his oxygen to 4 L nasal cannula. He denies any chest pain or palpitations. He states that he thinks he has been taking all of his cardiac medications. His granddaughter is his full-time caregiver and prepares his meds. He states that he thinks he took the meds that she prepared but he is not sure. He reports that his granddaughter prepare braxton nutritious meals that fit his dietary restrictions. He denies any excessive salt intake or dietary indiscretions. He denies any chest pain or palpitations. He ambulates with a cane or walker. He had been ambulating just fine until the last 2 days in
== END 2021-07-13 12:30 | disposition home or self-care (01) | DRG 291 ==
LOC: ANHED 16:34 → ANH3MEDSUR 17:23
PROVIDERS: Emergency Medicine; Nurse Practitioner; Nurse Practitioner Adult Health; Admitting Provider Family Medicine; Emergency Provider Emergency Medicine; PCP Internal Medicine; Visit Provider Family Medicine
DX: I11.0 Hypertensive heart disease with heart failure (principal); I50.33 Acute on chronic diastolic (congestive) heart failure; N17.9 Acute kidney failure, unspecified; J96.11 Chronic respiratory failure with hypoxia; D50.9 Iron deficiency anemia, unspecified; E11.9 Type 2 diabetes mellitus without complications; E66.01 Morbid (severe) obesity due to excess calories; E87.5 Hyperkalemia; G47.33 Obstructive sleep apnea (adult) (pediatric); G89.29 Other chronic pain; I25.2 Old myocardial infarction; I27.20 Pulmonary hypertension, unspecified; I07.1 Rheumatic tricuspid insufficiency; I25.10 Atherosclerotic heart disease of native coronary artery without angina pectoris; K21.9 Gastro-esophageal reflux disease without esophagitis; I48.91 Unspecified atrial fibrillation; R14.0 Abdominal distension (gaseous); N40.0 Benign prostatic hyperplasia without lower urinary tract symptoms; Z79.82 Long term (current) use of aspirin; Z99.81 Dependence on supplemental oxygen; Z98.41 Cataract extraction status, right eye; Z86.73 Personal history of transient ischemic attack (TIA), and cerebral infarction without residual deficits; Z98.42 Cataract extraction status, left eye; Z87.891 Personal history of nicotine dependence; Z87.11 Personal history of peptic ulcer disease; Z95.5 Presence of coronary angioplasty implant and graft
CPT/HCPCS: 36415; 71045; 71046; 74018; 80048; 80053; 80061; 83735; 83880; 84484; 85025; 85027; 85055; 85610; 85730; 93005; 93306; 94640; 96374; 96376; 99285; A9270; G0378; J1940; J3475

== ENCOUNTER 2021-11-12 16:38 | Observation (INO) | payer MEDICARE, MEDICAID, SELFPAY ==
[2021-11-12] VITALS (10 sets, daily range): BP systolic 119–144; BP diastolic 70–95; PULSE 74–95; RESP 16–22; TEMP 36.3–36.5; O2SAT 93–100; BMI 33.9
--- NOTE | ~2021-11-12 | XR_ITS ---
EXAMINATION: XR chest 1V portable Exam Date/Time: 11/12/2021 18:30 CDT HISTORY: dyspnea, HX CHF, HX HTN, NOSEBLEED X 1.5 HRS TODAY Comparison: 07/12/2021. RESULT: Lines, tubes, and devices: None. Lungs and pleura: Increased fine reticular opacities overlying chronic appearing coarse interstitial opacities. Persistent left hemidiaphragm elevation and atelectasis/scarring. Cardiomediastinal silhouette: Stable. Other: No acute osseous or upper abdominal finding. IMPRESSION: Pulmonary opacities likely reflect interstitial edema overlying chronic interstitial change. Reviewed, dictated and finalized at location K. IMPRESSION: Pulmonary opacities likely reflect interstitial edema overlying chronic interst itial change.
--- NOTE | 2021-11-12 17:41 | ED.EPISTAXIS ---
HPI - Epistaxis General Chief complaint: Epistaxis Stated complaint: nosebleed Time Seen by Provider: 11/12/21 17:02 History of Present Illness HPI Narrative: Pt presents with a nosebleed which started in his right nostril and bled over to the left for the last two hours. Pt has not been able to get it to stop. Pt had the nosebleed cauterized by ENT last week. Pt has had to have a transfusion in the past for same. Related Data Home Medications Medication Instructions Recorded Confirmed dextromethorphan 20 mg-quinidine See Rx Instructions .Route .COMPLEX 10/24/20 11/06/21 10 mg capsule (Nuedexta) pantoprazole 40 mg tablet,delayed 40 mg PO DAILY 10/24/20 11/06/21 release (Protonix) pregabalin 75 mg capsule 75 mg PO TID 10/24/20 11/06/21 tamsulosin 0.4 mg capsule 0.4 mg PO DAILY 10/24/20 11/06/21 metoprolol tartrate 25 mg tablet 12.5 mg PO DAILY 07/10/21 11/06/21 Allergies Allergy/AdvReac Type Severity Reaction Status Date / Time No Known Allergies Allergy Verified 11/06/21 15:55 Review of Systems Review of Systems: All systems reviewed & are unremarkable except as noted in HPI and below PMFSH Past Medical History Medical History Arthritis Benign prostatic hyperplasia Cerebrovascular accident 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 Chronic anemia Chronic pain Patient had a pain pump inserted in February 2019. Chronic respiratory failure with hypoxia, on home oxygen therapy Baseline oxygen requirement is 3 L nasal cannula. Congestive heart failure Echocardiogram February 2021: EF 55-60% (improved from prior echo of 45%) left ventricular septal wall motion abnormal related to bundle-branch block, grade 2 diastolic dysfunction, severe pulmonary hypertension with RVSP of 74, severe enlargement of the right atrium Coronary artery disease Gastroesophageal reflux disease History of bleeding peptic ulcer Hypertension Iron deficiency anemia Receives frequent iron infusions. Moderate pulmonary hypertension Estimated pulmonary arterial systolic pressure was 54 mmHg on echocardiogram dated 10/25/2020. Paroxysmal atrial fibrillation Pseudobulbar affect Spinal stenosis Type 2 diabetes mellitus Hemoglobin A1c was 6.3% on 10/25/2020. Surgical History Surgical History History of bilateral cataract extraction History of hernia repair Family History Family History Father Acute myocardial infarction Sibling Acute myocardial infarction Brain aneurysm Other No problems noted. Mother Breast cancer Social History Social History Social History: Healthcare power of deputy prosecuting attorney: Lennie Cruz, granddaughter. Code status: Full code. Smoking packs per day: 3 Smoking cigarettes per day: 60.0 Years smoked: 40 Smoking pack-years: 120.00 Smoking status: Former smoker Tobacco type: cigarettes Second hand tobacco smoke exposure: No Alcohol intake: never Substance use: never Substance use type: does not use Additional living arrangements comments: The patient lives in his own home in [place]. He reports that he lives alone. He ambulates with a walker or cane but uses a wheelchair when outside of the home. 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 Spiritual care concerns: No Exam Const: General: healthy appearing Nutritional Appearance: well nourished Orientation/consciousness: patient oriented x3 Limitations: no limitations HENMT: General nose exam: Epistaxis present (right mostly appears bleeding on left is from right) Eyes: EOM: EOMs intact bilaterally Resp: Effort & Inspection: normal respiratory effort Auscultation: clear to ausculta
[2021-11-12] MEDS: ONDANSETRON INJ 4 MG/2 ML VIAL IV PUSH (17:54)
[2021-11-12 17:56] LABS: Basophils Percent Auto 0.5 % (0.2-1.2); Eosinophils Absolute Auto 0.1 K/mm3 (0-0.3); Eosinophils Percent Auto 0.8 % (0-4.4); Hematocrit 33.3 % (42.0-52.0); Hemoglobin 9.2 g/dL (14.0-18.0); Immature Granulocyte Absolute 0.02 K/mm3 (0.00-0.031); Immature Granulocyte Percent A 0.3 % (0-0.5); Lymphocytes Percent Auto 6.8 % (18.3-44.2); Mean Corpuscular HGB Conc 27.6 g/dl (32-36); Mean Corpuscular Hemoglobin 24.1 pg (26-34); Mean Corpuscular Volume 87.2 fl (80-100); Mean Platelet Volume 11.2 fl (7.4-10.4); Monocytes Absolute Auto 0.6 K/mm3 (0.1-0.6); Monocytes Percent Auto 10.2 % (2.6-8.5); Neutrophils Absolute Auto 4.8 K/mm3 (1.3-6.7); Neutrophils Percent Auto 81.4 % (45.5-73.1); Platelet Count Result 160 k/mm3 (150-375); Red Blood Count 3.82 M/mm3 (4.6-6.20); Red Cell Distribution Width 25.2 % (11.5-14.5); White Blood Count 5.9 K/mm3 (4.5-10.0)
[2021-11-12 17:57] LABS: Anisocytosis 1+ (NORMAL); Hypochromasia 1+ (NORMAL); Platelet Estimate Adequate (Adequate)
[2021-11-12 18:06] LABS: Alanine Aminotransferase 11 U/L (6-50); Albumin Level 3.7 g/dL (3.5-5.1); Alkaline Phosphatase 115 U/L (38-126); Anion Gap 1 mmol/L (8-16); Aspartate Amino Transferase 33 U/L (17-59); Bilirubin,Total 0.8 mg/dL (0.2-1.3); Blood Urea Nitrogen 31 mg/dL (9-20); Calcium 8.1 mg/dL (8.4-10.2); Carbon Dioxide 39 mmol/L (22-30); Chloride 92 mmol/L (98-107); Estimated CRCL calculation 53 ml/min; Estimated Glomerular Filt Rate > 60; Glucose 154 mg/dL (65-110); Potassium 4.3 mmol/L (3.4-5.0); Sodium 132 mmol/L (137-145)
[2021-11-12] MEDS: FUROSEMIDE INJ 40 MG/4 ML VIAL IV PUSH (19:19)
[2021-11-12 20:03] LABS: NT Pro B Type Natriuretic Pept 6110 pg/mL (5-100); Troponin I 0.019 ng/mL (0.000-0.034)
--- NOTE | 2021-11-12 22:19 | ADMGEN ---
This patient, Zack Orellana, was admitted to Medical Room 249-01. Patient/family oriented to hospital policies and general routines including ID bracelet, bed and alarms, visiting hours, pain management, procedures, bathroom and other care routines, personal items, smoking policy, room service/diet, and visiting hours. Information on how to activate the Rapid Response Team has been discussed. Patient/Family are encouraged to report perceived risks to care and to ask questions if they do not understand what they are told or what they should do.
--- NOTE | 2021-11-12 22:26 | PC.NURSE ---
AT 2209 PT TRANSFERRED TO [address] [place] [address] BY BY TRANSPORTER MARISSA URIAS. PT IS A/O X3 AND WHEN ATTEMPTED TO APPLY O2 FOR TRANSPORT PT SAID I DON'T NEED THAT NOW.
--- NOTE | 2021-11-12 22:35 | PC.NURSE ---
At 2209 pt up to with standby assist for transport to [facility]. Pt in no distress, skin pwd and rhino rocket in place in right nare. Once in attempted to apply O2 on pt and he said I don't need that now. Loraine Simeon also present to transport pt. Again pt in no distress when he departed the ED
--- NOTE | 2021-11-12 22:51 | PC.NURSE ---
ENTERED PT ROOM TO [facility] NEW ADMISSION. NOTICED PT DID NOT HAVE ON ANY 02. WAS INFORMED DURING REPORT PT WEARS 3L NC AT BASELINE AND IS CURRENTLY ON A NON REBREATHER MASK DUE TO HIS HEMOSTATIC BALLOON TO R NARE. PT WAS IN DISTRESS GASPING FOR AIR. PT O2 SAT WAS 65%. WAS ABLE TO GET PT 02 BACK UP TO 98% ONCE PLACED ON 5L NON REBREATHER. AFTER PT SATS IMPROVED HE WAS WEANED DOWN TO 3.5L. PT NOW RESTING COMFORTABLY. ED STAFF STATED PT REFUSED TO WEAR O2 DURING TRANSPORT PT STATED HE DID NOT REFUSE 02.
--- NOTE | 2021-11-12 23:42 | PC.NURSE ---
Completed patient admission with the help of patient's granddaughter, Lennie Cruz, over the phone. Patient stated Lennie is the power of attorney law clerk.
[2021-11-13] VITALS (12 sets, daily range): BP systolic 118–126; BP diastolic 56–66; PULSE 74–86; RESP 16–24; TEMP 36.1–37.1; O2SAT 94–100
[2021-11-13 00:10] LABS: Glucose Point of Care 155 mg/dl (65-105)
--- NOTE | 2021-11-13 04:01 | PM.IMHP ---
H&P: HPI History of Present Illness Date/Time: 11/13/21 04:01 Chief Complaint: SHORTNESS OF BREATH Narrative: This is an 81-year-old male with past medical history significant for grade 2 diastolic heart failure, ventral hernia, dementia, type 2 diabetes mellitus. patient presents to the emergency room due to epistaxis had been treated in the outpatient setting with silver nitrate however he re ocurred presented with new bleeding and had a rhino rocket placed. however patient complained of shortness of breath with minimal exertion bilateral lower extremity swelling increased abdominal girth scrotal swelling, PND, orthopnea. Denies chest pain, palpitations, lightheadedness, syncope, or near-syncope. Preliminary workup was significant for brain natriuretic peptide of 6000, a chest x-ray was significant for interstitial edema. Patient is been admitted for further evaluation management and treatment. Review of Systems Review of Systems: Epistaxis, shortness of breath with minimal exertion, bilateral lower extremity worsening edema Constitutional: Constitutional: Denies chills, Denies fever(s), Denies malaise, Denies poor appetite and Denies weakness Eyes: Eyes: Denies change in vision ENT: Denies dysphagia, Denies vertigo, Denies dizziness and Denies odynophagia Cardiovascular: Cardiovascular: Denies chest pain, Reports pedal edema, Reports leg edema, Reports dyspnea on exertion, Reports orthopnea and Reports other ( scrotal swelling) Respiratory: Respiratory: Denies cough, Denies pain on inspiration and Denies wheezing Gastrointestinal: Gastrointestinal: Denies abdominal pain, Denies dyspepsia, Denies heartburn, Denies nausea and Denies vomiting Genitourinary: Genitourinary: Denies dysuria and Reports other ( scrotal swelling) Musculoskeletal: Musculoskeletal: Reports other ( leg swelling) Integumentary/Breasts: Skin/Breast: Denies rash Psychiatric: Psychiatric: Reports no additional psychiatric complaints and Reports as per HPI Endocrine: Endocrine: Denies cold intolerance, Denies flushing, Denies heat intolerance, Denies polyphagia, Denies polydipsia and Denies palpitations Hematologic/Lymphatic: Hematologic/Lymphatic: Reports no additional hematologic/lymphatic complaints and Reports as per HPI Allergic/Immunologic: Allergic/Immunologic: Reports no additional allergic/immunologic complaints and Reports as per HPI [facility] Past Medical History Medical History Arthritis Benign prostatic hyperplasia Cerebrovascular accident 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 Chronic anemia Chronic pain Patient had a pain pump inserted in February 2019. Chronic respiratory failure with hypoxia, on home oxygen therapy Baseline oxygen requirement is 3 L nasal cannula. Congestive heart failure Echocardiogram February 2021: EF 55-60% (improved from prior echo of 45%) left ventricular septal wall motion abnormal related to bundle-branch block, grade 2 diastolic dysfunction, severe pulmonary hypertension with RVSP of 74, severe enlargement of the right atrium Coronary artery disease Gastroesophageal reflux disease History of bleeding peptic ulcer Hypertension Iron deficiency anemia Receives frequent iron infusions. Moderate pulmonary hypertension Estimated pulmonary arterial systolic pressure was 54 mmHg on echocardiogram dated 10/25/2020. Paroxysmal atrial fibrillation Pseudobulbar affect Spinal stenosis Type 2 diabetes mellitus Hemoglobin A1c was 6.3% on 10/25/2020. Surgical History Surgical History History of bilateral cataract extraction History of hernia repair Family History Family History Father Acute myocardial infarction Sibling Acute myocardial infarction Brain aneurysm Other No problems noted. Mother
[2021-11-13] MEDS: TORSEMIDE 20 MG TABLET PO (09:24)
[2021-11-13] MEDS: FUROSEMIDE INJ 40 MG/4 ML VIAL IV PUSH ×2 (09:24→17:44)
[2021-11-13] MEDS: MUPIROCIN 2% OINT 22 GM TUBE 1 APPLIC TOPICAL ×4 (09:25→20:05)
[2021-11-13] MEDS: TAMSULOSIN HCL 0.4 MG CAPSULE PO (09:25)
[2021-11-13] MEDS: PREGABALIN (*CRX) 75 MG CAPSULE PO ×3 (09:30→17:44)
--- NOTE | 2021-11-13 12:14 | PM.CNCAR ---
Assessment and Plan Assessment and plan (1) Acute on chronic diastolic heart failure: Code(s): I50.33 - Acute on chronic diastolic (congestive) heart failure Status: Acute Assessment and Plan: Continue with diuresis Lasix 40 mg IV BID. Then will transition back to Torsemide at higher dose to keep him euvolemic. Monitor electrolytes. (2) A-fib: Code(s): I48.91 - Unspecified atrial fibrillation Status: Acute Assessment and Plan: Paroxysmal Atrial fib/flutter. In sinus rhythm currently. No on anticoagulation due to history of severe PUD bleed and he refuses anticoagulation since. (3) Hypertension: Code(s): I10 - Essential (primary) hypertension Status: Chronic Assessment and Plan: Stable. (4) CAD (coronary artery disease): Code(s): I25.10 - Atherosclerotic heart disease of [place] coronary artery without angina pectoris Status: Acute Assessment and Plan: Stable. History of Present Illness History of Present Illness Consult date/time: 11/13/21 12:14 Reason For Visit: CHF/Epistaxis Narrative: 80 yr old man presents to hospital due to sob x 3 days.? His regular nuclear chemistry technician is at [facility], Dr. Caban, and sees him regularly. He has a history of CHF, CAD with OR and several stents (last cath about 3 years ago per patient), atrial fib/flutter (not on anticoagulation due to significant peptic ulcer bleed in the past), DM, hypertension, MALLORY, iron deficiency anemia requiring iron infusions. Reports he came to hospital for nose bleed and it had to be packed. He was also noting more swelling of his legs in last few day and more SOB. He has not changed his diet and has not consumed more salty foods. He can normally walk 20 feet with his cane prior to BARRAZA. Denies chest pain, palpitations, orthopnea, PND, dizziness. Review of Systems Review of Systems: All systems reviewed & are unremarkable except as noted in HPI and below Constitutional: Constitutional: Reports as per HPI, Denies chills and Denies fever(s) Cardiovascular: Cardiovascular: Reports as per HPI, Denies chest pain, Reports leg edema and Denies lightheadedness Respiratory: Respiratory: Reports as per HPI and Reports dyspnea Gastrointestinal: Gastrointestinal: Reports as per HPI and Denies abdominal pain Genitourinary: Genitourinary: Reports as per HPI and Denies dysuria Musculoskeletal: Musculoskeletal: Reports as per HPI Neurologic: Reports as per HPI, Denies dizziness and Denies syncope [facility] Past Medical History Medical History Arthritis Benign prostatic hyperplasia Cerebrovascular accident 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 Chronic anemia Chronic pain Patient had a pain pump inserted in February 2019. Chronic respiratory failure with hypoxia, on home oxygen therapy Baseline oxygen requirement is 3 L nasal cannula. Congestive heart failure Echocardiogram February 2021: EF 55-60% (improved from prior echo of 45%) left ventricular septal wall motion abnormal related to bundle-branch block, grade 2 diastolic dysfunction, severe pulmonary hypertension with RVSP of 74, severe enlargement of the right atrium Coronary artery disease Gastroesophageal reflux disease History of bleeding peptic ulcer Hypertension Iron deficiency anemia Receives frequent iron infusions. Moderate pulmonary hypertension Estimated pulmonary arterial systolic pressure was 54 mmHg on echocardiogram dated 10/25/2020. Paroxysmal atrial fibrillation Pseudobulbar affect Spinal stenosis Type 2 diabetes mellitus Hemoglobin A1c was 6.3% on 10/25/2020. Surgical History Surgical History History of bilateral cataract extraction History of hernia repair Family History Family History Father Cait velasco
--- NOTE | 2021-11-13 14:45 | PM.IMPN ---
Progress Note: A&P Assessment and Plan (1) Acute on chronic diastolic heart failure: Code(s): I50.33 - Acute on chronic diastolic (congestive) heart failure Status: Acute Assessment and Plan: presented with increased edema and shortness of breath CXR showed pulmonary opacities most consistent with interstitial edema BNP 6100 continue with Lasix 40 mg b.i.d. monitor intake and output. continue Dudley catheter heart healthy diet 1500 cc IV fluid restriction appreciate cardiology consultation (2) Epistaxis: Code(s): R04.0 - Epistaxis Status: Acute Assessment and Plan: recurrent issue. He is s/p right nasal cautery on 11/06/2021 as an outpatient s/p rhino rocket placement in the ED on 11/12 consult to ENT. Recommendations appreciated monitor H&H (3) A-fib: Code(s): I48.91 - Unspecified atrial fibrillation Status: Acute Assessment and Plan: rate is controlled patient is not on anticoagulation due to history of bleeding peptic ulcer and now with epistaxis (4) Chronic respiratory failure with hypoxia, on home oxygen therapy: Code(s): J96.11 - Chronic respiratory failure with hypoxia; Z99.81 - Dependence on supplemental oxygen Status: Acute Assessment and Plan: maintained on home oxygen currently using non-rebreather mask as rhino rocket is in the nare monitor oxygen saturations (5) Iron deficiency anemia: Code(s): D50.9 - Iron deficiency anemia, unspecified Status: Acute Assessment and Plan: H&H is consistent with baseline monitor closely given epistaxis Subjective Date/time seen: 11/13/21 14:45 Interval history: Date of service: 11/13/2021 Zack Orellana is 81-year-old male with a history of atrial fibrillation not on anticoagulation due to history of peptic ulcer bleeding, iron deficiency anemia, type 2 diabetes mellitus, CAD, CHF, chronic respiratory failure on home oxygen therapy, and recent epistaxis s/p right nasal cautery on 11/06/21 as an outpatient established with ENT who is seen in follow-up for recurrent epistaxis and CHF exacerbation. He is feeling okay today. He does complain of persistent nose bleed. He states he can feel a constant drip down the back of his throat from the right side. He had a rhino rocket placed yesterday evening and seems to be tolerating this well. He feels that his swelling of his lower extremities is a bit better today. He continues to endorse swelling in his legs, his groin, his hands, and the left side of his abdomen. He endorses mild shortness of breath but denies BARRAZA, chest pain, cough, conversational dyspnea. He denies abdominal pain, cramping, or bloating. He does endorse some gas discomfort. His last bowel movement was 2 days ago. He denies urinary symptoms. He had a Dudley catheter placed and has no issues with this. Denies dizziness, lightheadedness, weakness. No fevers or chills. Review of Systems Review of Systems: All systems reviewed & are unremarkable except as noted in HPI and below Exam Narrative: General: well-nourished, chronically ill-appearing 81-year-old male, sitting up in bed, comfortable, NARD Neuro: awake, alert and oriented x4, speech clear, no focal neuro deficits noted HEENMT: normocephalic, atraumatic, EOMI, sclerae anicteric, rhino rocket in place in right nare Respiratory: bibasilar inspiratory crackles, nonlabored breathing, able to speak in complete sentences Cardio: regular rate, regular rhythm with S1-S2 Abdomen: nondistended, normoactive bowel sounds, soft, nontender to palpation, large ventral hernia that is soft an easily reducible Extremities: 1+ pedal edema, no erythema or tenderness to palpation, DP pulses 2+ bilaterally Skin: no rashes or lesions, warm and dry Psych: appropriate mood and affect, judgment and insight intact Objective Data Vital Signs Vital Signs: Vital Signs - 24 hr
--- NOTE | 2021-11-13 15:06 | PC.NURSE ---
Supply Chain Consultant called ENT consult to Dr. Navarrete who reports there is no ENT coverage this Week, Dr. Silverio is not carbon blocks press operator either Dr. Navarrete reports it Pt is still in hospital 11/15/2021 he will see him otherwise have pt follow up in office. Sadie Barker made aware.
[2021-11-13 15:32] LABS: Hematocrit 33.2 % (42.0-52.0)
[2021-11-13] MEDS: DONEPEZIL HCL 5 MG TABLET PO (20:05)
[2021-11-13] MEDS: FAMOTIDINE 20 MG TABLET PO (20:06)
[2021-11-14 00:01] VITALS: PULSE 74
--- NOTE | 2021-11-14 00:54 | PC.NURSE ---
Pt was turned down to 3L O2 at the beginning of the shift. Pt is tolerating fine. Pt has rhino-rocket in place. Pt resting comfortably. Pt has paz catheter in place. Pt has no complaints of pain. Will continue to monitor pt.
[2021-11-14 04:00] VITALS: PULSE 91
[2021-11-14 04:58] VITALS: BP 120/56; PULSE 74; RESP 12; TEMP 36.8; O2SAT 91
[2021-11-14 05:24] LABS: Hematocrit 35.6 % (42.0-52.0); Hemoglobin 9.7 g/dL (14.0-18.0); Mean Corpuscular HGB Conc 27.2 g/dl (32-36); Mean Corpuscular Hemoglobin 24.6 pg (26-34); Mean Corpuscular Volume 90.1 fl (80-100); Mean Platelet Volume 11.1 fl (7.4-10.4); Platelet Count Result 154 k/mm3 (150-375); Red Blood Count 3.95 M/mm3 (4.6-6.20); Red Cell Distribution Width 24.6 % (11.5-14.5); White Blood Count 8.1 K/mm3 (4.5-10.0)
[2021-11-14 05:39] LABS: Blood Urea Nitrogen 25 mg/dL (9-20); Calcium 8.7 mg/dL (8.4-10.2); Carbon Dioxide > 40 mmol/L (22-30); Chloride 88 mmol/L (98-107); Estimated CRCL calculation 69 ml/min; Estimated Glomerular Filt Rate > 60; Glucose 126 mg/dL (65-110); Potassium 3.7 mmol/L (3.4-5.0); Sodium 137 mmol/L (137-145)
--- NOTE | 2021-11-14 07:52 | PM.PNCARD ---
Progress Note: A&P Assessment and Plan (1) Acute exacerbation of CHF (congestive heart failure): Code(s): I50.9 - Heart failure, unspecified Status: Acute Assessment and Plan: Resolved. Acute on chronic diastolic heart failure. Agree with diuresis with Lasix 40 mg IV BID. He was on Torsemide 20 mg PO daily at home. 07/12/21 Echo: EF 50-55%, grade III diastolic dysfunction (E/e' 11), mild RVE/hypokinesis, mild LAE, mod GULSHAN, mild MR, RVSP 81 mmHg s/o severe pulm hypertension. May d/c home from cardiology standpoint. And upon discharge change Lasix 40 mg IV BID to Torsemide 20 mg PO BID. Have him f/u with his regular encyclopedia research worker, Dr. Caban, in 1-2 weeks. (2) A-fib: Code(s): I48.91 - Unspecified atrial fibrillation Status: Acute Assessment and Plan: He has paroxysmal atrial fib. Back in sinus rhythm. No on anticoagulation due to history of severe PUD bleed and he refuses anticoagulation since. (3) Hypertension: Code(s): I10 - Essential (primary) hypertension Status: Chronic Assessment and Plan: Stable. (4) CAD (coronary artery disease): Code(s): I25.10 - Atherosclerotic heart disease of [place] coronary artery without angina pectoris Status: Acute Assessment and Plan: Stable. His regular encyclopedia research worker is Dr. Caban at [facility] [place] who he sees regularly. Subjective Date/time seen: 11/14/21 07:52 Denies chest pain or sob. Breathing is back to baseline. Exam Const: General: cooperative, healthy appearing and comfortable Nutritional Appearance: obese Resp: Auscultation: clear to auscultation bilaterally, no crackles, no rales, no rhonchi and no wheezes Cardio: Jugular venous distension: no JVD Rate: regular rate Rhythm: regular rhythm Heart sounds: no murmurs Peripheral pulses: dorsalis pedis present GI: GI Palp: No abdominal tenderness and Yes Soft to palpation Neuro: General: oriented to person, oriented to place and oriented to time Extrem: Right lower extremity: no edema Left lower extremity: no edema Objective Data Vital Signs Vital Signs: Vital Signs - 24 hr 11/13/21 08:00 11/13/21 09:30 11/13/21 12:00 Temperature Pulse Rate 79 86 Respiratory Rate 20 Blood Pressure Pulse Oximetry 94 Oxygen Delivery Non-Rebreather Mask Oxygen Flow Rate 5 11/13/21 13:42 11/13/21 16:00 11/13/21 19:56 Temperature 97 F L 98.8 F Pulse Rate 78 75 74 Respiratory Rate 24 H 16 Blood Pressure 124/66 118/56 L Pulse Oximetry 100 99 Oxygen Delivery Oxygen Flow Rate 11/13/21 20:05 11/13/21 20:03 11/14/21 00:01 Temperature Pulse Rate 75 74 Respiratory Rate Blood Pressure Pulse Oximetry 94 Oxygen Delivery Non-Rebreather Mask Oxygen Flow Rate 3 11/14/21 04:00 11/14/21 04:58 Temperature 98.2 F Pulse Rate 91 74 Respiratory Rate 12 Blood Pressure 120/56 L Pulse Oximetry 91 Oxygen Delivery Oxygen Flow Rate Intake/Output Intake/Output: Intake & Output 11/11/21 11/12/21 11/13/21 11/14/21 23:59 23:59 23:59 23:59 Intake Total 1260 440 Output Total 4700 1500 Balance -3440 -1060 Meds/Results Medications: Active Medications Generic Name Dose Route Start Last Admin Trade Name Freq PRN Reason Stop Dose Admin Donepezil HCl 5 mg 11/13/21 21:00 11/13/21 20:05 Donepezil Hcl 5 Mg Tablet PO 5 mg HS REHAN Administration Famotidine 20 mg 11/13/21 21:00 11/13/21 20:06 Famotidine 20 Mg Tablet PO 20 mg Q12HR REHAN Administration Furosemide 40 mg 11/13/21 09:00 11/13/21 17:44 Furosemide Inj 40 Mg/4 Ml Vial IV PUSH 40 mg BID REHAN Administration Lidocaine/Prilocaine 1 each 11/13/21 04:19 Lidocaine/Prilocaine Cream 2.5-2.5% Tube TOPICAL PRN PRN Pain Miscellaneous Information 0 each 11/13/21 00:01 Lidocaine/Prilocaine - Comment Says Uses In Pain Pump - Please Clarify Product And Direc XX 12/13/21 00:00 CLARIFY REHAN Janene
[2021-11-14 08:00] VITALS: PULSE 76
[2021-11-14 09:02] VITALS: RESP 14; O2SAT 91
[2021-11-14] MEDS: FAMOTIDINE 20 MG TABLET PO (09:02)
[2021-11-14] MEDS: PREGABALIN (*CRX) 75 MG CAPSULE PO ×2 (09:02→12:21)
[2021-11-14] MEDS: TAMSULOSIN HCL 0.4 MG CAPSULE PO (09:02)
[2021-11-14] MEDS: TORSEMIDE 20 MG TABLET PO (09:02)
[2021-11-14] MEDS: MUPIROCIN 2% OINT 22 GM TUBE 1 APPLIC TOPICAL ×2 (09:04→12:21)
[2021-11-14] MEDS: ACETAMINOPHEN 325 MG TABLET 650 MG PO (09:39)
--- NOTE | 2021-11-14 12:09 | PM.DS ---
DS: Admitting Diagnosis Discharge Date 11/14/2021 Admitting Diagnosis CHF, epistaxis DS: Discharge Diagnosis Discharge Diagnosis (1) Acute on chronic diastolic heart failure: Code(s): I50.33 - Acute on chronic diastolic (congestive) heart failure Status: Acute Assessment and Plan: presented with increased edema and shortness of breath CXR showed pulmonary opacities most consistent with interstitial edema BNP 6100 on presentation symptomatic improvement following IV Lasix and fluid restriction seen in consultation by Cardiology torsemide increased to 40 mg b.i.d and furosemide discontinued per Cardiology recommendations CHF Education provide follow-up with primary machine spreader as an outpatient (2) Epistaxis: Code(s): R04.0 - Epistaxis Status: Acute Assessment and Plan: recurrent issue. He is s/p right nasal cautery on 11/06/2021 as an outpatient S/p rhino rocket placement in the ED on 11/12 bleeding resolved. rhino rocket in place at time of discharge. ENT follow-up tomorrow, 11/15/2021 for evaluation prophylactic Augmentin x5 days started on discharge (3) A-fib: Code(s): I48.91 - Unspecified atrial fibrillation Status: Acute Assessment and Plan: rate is controlled patient is not on anticoagulation due to history of bleeding peptic ulcer and now with epistaxis (4) Chronic respiratory failure with hypoxia, on home oxygen therapy: Code(s): J96.11 - Chronic respiratory failure with hypoxia; Z99.81 - Dependence on supplemental oxygen Status: Acute Assessment and Plan: maintained on home oxygen currently using non-rebreather mask as rhino rocket is in the nare. patient reports he has non-rebreather mask at home he can use until able to transition back to nasal cannula (5) Iron deficiency anemia: Code(s): D50.9 - Iron deficiency anemia, unspecified Status: Acute Assessment and Plan: H&H remained consistent with baseline no active bleeding at time of discharge. DS: Summary Hospital Course Hospital Course: date of admission: 11/12/2021 date of discharge: 11/14/2021 Zack Orellana is an 81-year-old male with a history of atrial fibrillation not on anticoagulation due to history of peptic ulcer bleeding, iron deficiency anemia, type 2 diabetes mellitus, CAD, CHF, chronic respiratory failure on home oxygen therapy, and recent epistaxis s/p right nasal cautery on 11/06/21 as an outpatient established with ENT? who presented to the emergency department on 11/12/2021 with complaints bleeding from right as well increased swelling of his extremities and shortness of breath. On presentation to the ED, his vital signs were stable, he was afebrile, hemoglobin 9.2, hematocrit 33.3, BNP 6100, additional laboratory workup unremarkable. Rhino rocket was placed in the ED. patient was admitted to the hospitalist service for further evaluation management was seen in consultation by cardiology. Please see above for further details. He had symptomatic improvement following IV diuresis and will continue with p.o. torsemide as an outpatient. he will need to follow-up with his machine spreader for further monitoring. CHF education provided. No ENT consult was available during the patient's admission, however nasal bleeding stopped with the rhino rocket in place. Discussed with ENT and the patient will follow-up as an outpatient on 11/15/2021 at 3:00 p.m.. He will keep the rhino rocket in place until that time. Started on 5 day course of prophylactic Augmentin given presence of rhino rocket. Patient was overall feeling improved and was eager for discharge home. Given overall improvement, he was determined to no longer require inpatient care and was discharged in hemodynamically stable condition on 11/14/2021. Discussed with both patient and his granddaughter/ caregiver worrisome signs and symptoms for which to r
== END 2021-11-14 13:49 | disposition home or self-care (01) ==
LOC: ANHED 20:10 → ANH2MED 21:32
PROVIDERS: Admitting Provider Internal Medicine; Emergency Provider Emergency Medicine; PCP Internal Medicine; Visit Provider Physician Assistant
DX: R04.0 Epistaxis (principal); I50.33 Acute on chronic diastolic (congestive) heart failure; E11.9 Type 2 diabetes mellitus without complications; F03.90 Unspecified dementia, unspecified severity, without behavioral disturbance, psychotic disturbance, mood disturbance, and anxiety; Z86.73 Personal history of transient ischemic attack (TIA), and cerebral infarction without residual deficits; I25.10 Atherosclerotic heart disease of native coronary artery without angina pectoris; K21.9 Gastro-esophageal reflux disease without esophagitis; I11.0 Hypertensive heart disease with heart failure; I48.0 Paroxysmal atrial fibrillation; Z87.891 Personal history of nicotine dependence; J96.11 Chronic respiratory failure with hypoxia; Z99.81 Dependence on supplemental oxygen; D50.9 Iron deficiency anemia, unspecified
CPT/HCPCS: 30901; 36415; 71045; 80048; 80053; 82948; 83880; 84484; 85014; 85018; 85025; 85027; 96374; 96375; 96376; 99285; A9270; G0378; J1940; J2405

== ENCOUNTER 2021-12-16 13:24 | Inpatient (IN) | payer MEDICARE, MEDICAID, SELFPAY ==
[2021-12-16] VITALS (27 sets, daily range): BP systolic 106–134; BP diastolic 57–105; PULSE 62–108; RESP 12–26; TEMP 36.4–36.8; O2SAT 84–97; BMI 36.7; BMI 36.1
--- NOTE | ~2021-12-16 | US_ITS ---
US right upper quadrant INDICATION: Cirrhosis. PROCEDURE: Realtime right upper abdominal ultrasound. COMPARISON: No prior studies for comparison. FINDINGS: Pancreas not visualized due to bowel gas. There is heterogeneous liver echotexture. Nodular appearance to the liver surface, consistent with cirrhosis. There is normal directional flow in the portal vein. There are gallstones. There is gallbladder wall thickening. Common bile duct measures 4 mm. No sono graphic Ovalle's sign. There is ascites. IMPRESSION: 1: Cirrhosis of the liver. 2: Cholelithiasis with gallbladder wall thickening. Consider cholecystitis in the appropriate clinic al setting. 3: Small amount of ascites. Reviewed, dictated and finalized at location A. IMPRESSION: 1: Cirrhosis of the liver. 2: Cholelithiasis with gallbladder wall thickening. Consider cholecystitis in the appropriate clinical setting. 3: Small amount of ascites.
--- NOTE | ~2021-12-16 | XR_ITS ---
XR chest 1V portable 12/16/2021 14:24 Indication: Shortness of breath. Bilateral leg pain. Procedure: AP portable chest Comparison: Comparison to multiple prior studies sequentially, with oldest reviewed study dated 07/03. Findings: Cardiomegaly. Diffuse bilateral airspace disease with peribronchial thickening. No signific ant effusion or pneumothorax. There is atherosclerosis and ectasia of the aorta. There is severe righ t glenohumeral joint arthritis. Impression: 1: Diffuse bilateral airspace disease with peribronchial thickening which may represent edema or pneu monia. Reviewed, dictated and finalized at location A. Impression: 1: Diffuse bilateral airspace disease with peribronchial thickening which may r epresent edema or pneumonia.
--- NOTE | ~2021-12-16 | US_ITS ---
EXAMINATION: US scrotum doppler DATE: 12/19/2021 16:23 INDICATION: Scrotal pain and swelling. TECHNIQUE: Grayscale and Doppler ultrasound images of the testes were obtained. COMPARISON: None. FINDINGS: The right testis measures 3.4 x 2.6 x 2.6 cm. The left testis measures 3.4 x 2.4 x 2.4 cm. There is vascular flow to both testes. The right epididymis is normal with normal vascular flow. The left epididymis is normal with normal vascular flow. There is no varicocele or hydrocele. There is di ffuse skin thickening. IMPRESSION: 1. Scrotal skin thickening. Reviewed, dictated and finalized at location A. IMPRESSION: 1. Scrotal skin thickening.
--- NOTE | ~2021-12-16 | US_ITS ---
EXAMINATION: US venous doppler [facility] DATE: 12/17/2021 16:07 INDICATION: Lower limb edema. TECHNIQUE: Grayscale ultrasound images without and with compression and Doppler ultrasound images of the bilateral lower extremity veins were obtained. COMPARISON: Ultrasound 10/25/2020 FINDINGS: The visualized portions of right common femoral vein, profunda (deep) femoral vein, femoral vein, pop liteal vein, peroneal veins, and posterior tibial veins are patent. The visualized portions of left common femoral vein, profunda femoral vein, femoral vein, popliteal v ein, peroneal veins, and posterior tibial veins are patent. IMPRESSION: 1. No deep venous thrombosis. Reviewed, dictated and finalized at location A.
--- NOTE | 2021-12-16 13:35 | ECG_ITS ---
Measurements Intervals [place] Rate: 99 P: NC: 0 QRS: 126 QRSD: 101 T: 22 QT: 347 QTc: 446 Interpretive Statements POSSIBLE ATRIAL FLUTTER WITH ABERRANT OR PREMATURE VENTRICULAR COMPLEX LOW-VOLTAGE QRS SEPTAL MYOCARDIAL INFARCTION , PROBABLY OLD [40+ ms Q WAVE IN V1/V2] CANNOT RULE OUT LATERAL INFARCTION ABNORMAL ECG COMPARED TO ECG 07/11/2021 12:32:38 SUPRAVENTRICULAR RHYTHM NOW PRESENT Electronically Signed On 12-16-2021 14:43:34 CDT by Mitch Gonzáles M.D.
[2021-12-16 14:03] LABS: Basophils Percent Auto 0.2 % (0.2-1.2); Eosinophils Percent Auto 0.1 % (0-4.4); Hematocrit 30.7 % (42.0-52.0); Hemoglobin 9.1 g/dL (14.0-18.0); Immature Granulocyte Absolute 0.03 K/mm3 (0.00-0.031); Immature Granulocyte Percent A 0.2 % (0-0.5); Lymphocytes Absolute Auto 0.29 K/mm3 (0.9-3.2); Lymphocytes Percent Auto 2.3 % (18.3-44.2); Mean Corpuscular HGB Conc 29.6 g/dl (32-36); Mean Corpuscular Hemoglobin 24.2 pg (26-34); Mean Corpuscular Volume 81.6 fl (80-100); Monocytes Absolute Auto 0.9 K/mm3 (0.1-0.6); Monocytes Percent Auto 7.1 % (2.6-8.5); Neutrophils Absolute Auto 11.4 K/mm3 (1.3-6.7); Neutrophils Percent Auto 90.1 % (45.5-73.1); Nucleated Red Blood Cells Absolute Auto 0.1 K/mm3 (0.0-0.012); Nucleated Red Blood Cells Perc 0.4 % (0.0-0.2); Platelet Count Result 130 k/mm3 (150-375); Red Blood Count 3.76 M/mm3 (4.6-6.20); Red Cell Distribution Width 19.7 % (11.5-14.5); White Blood Count 12.7 K/mm3 (4.5-10.0)
--- NOTE | 2021-12-16 14:08 | ED.GENADULT ---
HPI - General Adult General Chief complaint: Unspecified Stated complaint: fluid retention Source: patient, EMS, RN notes reviewed and old records reviewed Mode of arrival: EMS Limitations: clinical condition History of Present Illness HPI narrative: This is an 81 year old male with history of anemia, chronic respiratory failure, CHF who presents for evaluation of edema. Patient has been having worsening body swelling for several days. He reports his scrotum is extremely swollen and he is having difficulty urinating over past 2 days. He states he is urinating a small amount at a time. He was on lasix prior to his last hospitalization but for last month, he has been taking torsemide 40 mg BID. He denies chest pain, fever, chills. He wears 3 L NC and he reports some worsening shortness of breath. He states his urologist and abalone sheller are located in [place] Related Data Home Medications Medication Instructions Recorded Confirmed pregabalin 75 mg capsule (Lyrica) 75 mg PO Q12H 10/24/20 12/16/21 tamsulosin 0.4 mg capsule (Flomax) 0.4 mg PO HS 10/24/20 12/16/21 donepezil 5 mg tablet (Aricept) 5 mg PO HS 11/12/21 12/16/21 lidocaine-prilocaine 2.5 %-2.5 % 1 applic PRN PRN Pain 11/12/21 12/16/21 topical cream metformin 1,000 mg tablet 1,000 mg PO DAILY 11/12/21 12/16/21 ondansetron HCl 4 mg tablet 4 mg PO TID PRN Nausea 11/12/21 12/16/21 amoxicillin 500 mg capsule 500 mg PO TID 12/16/21 12/16/21 diphenhydramine HCl 25 mg capsule 25 mg PO DAILY PRN Runny Nose 12/16/21 12/16/21 (Benadryl) meclizine 12.5 mg tablet 12.5 mg PO TID PRN Dizziness 12/16/21 12/16/21 torsemide 20 mg tablet 20 mg PO QPM 12/16/21 12/16/21 torsemide 20 mg tablet 40 mg PO DAILY 12/16/21 12/16/21 Allergies Allergy/AdvReac Type Severity Reaction Status Date / Time No Known Allergies Allergy Verified 11/21/21 15:15 Review of Systems Review of Systems: CONSTITUTIONAL: Denies fever, chills, or sweats. EYES: Denies visual changes, redness, or discharge. ENT: Denies rhinorrhea, congestion, sore throat, or otalgia. CARDIOVASCULAR: Denies chest pain, palpitations. reports edema. RESPIRATORY: Denies cough, reports dyspnea GASTROINTESTINAL: Denies abdominal pain, nausea, vomiting, or diarrhea. GENITOURINARY: Denies dysuria or hematuria. SKIN: Denies rash or itching. MUSCULOSKELETAL: Denies back pain, joint pain, or myalgia. NEUROLOGIC: Denies headache, numbness, or weakness. PSYCHIATRIC: Denies anxiety or depression. [facility] Past Medical History Medical History Arthritis Benign prostatic hyperplasia Cerebrovascular accident 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 Chronic anemia Chronic pain Patient had a pain pump inserted in February 2019. Chronic respiratory failure with hypoxia, on home oxygen therapy Baseline oxygen requirement is 3 L nasal cannula. Congestive heart failure Echocardiogram February 2021: EF 55-60% (improved from prior echo of 45%) left ventricular septal wall motion abnormal related to bundle-branch block, grade 2 diastolic dysfunction, severe pulmonary hypertension with RVSP of 74, severe enlargement of the right atrium Coronary artery disease Gastroesophageal reflux disease History of bleeding peptic ulcer Hypertension Iron deficiency anemia Receives frequent iron infusions. Moderate pulmonary hypertension Estimated pulmonary arterial systolic pressure was 54 mmHg on echocardiogram dated 10/25/2020. Paroxysmal atrial fibrillation Pseudobulbar affect Spinal stenosis Type 2 diabetes mellitus Hemoglobin A1c was 6.3% on 10/25/2020. Surgical History Surgical History History of bilateral cataract extraction History of hernia repair Family History Family History Father Acute myocardial infarction Sibling Acute be
[2021-12-16 14:09] LABS: Alveolar/Arterial O2 Gradient 116.7 mmHg; Base Excess ABG 2.2 mEq/l (+/-2.0); Fractional Inspired Oxygen 32 %; HCO3 ABG 28.3 mEq/l (22.0-26.0); Oxygen Content ABG 11.1 %vol (16.0-22.0); PCO2 ABG 51.5 mmHg (35.0-45.0); PO2 ABG 51.2 mmHg (80.0-100.0); Total Hemoglobin 9.9 g/dL (12.0-18.0); pH ABG 7.358 (7.350-7.450)
[2021-12-16 14:11] LABS: Oxygen Saturation ABG 84.3 % (95.0-100.0)
[2021-12-16 14:12] LABS: Device NASAL CANNULA; Oxyhemoglobin 79.4 % THb (90.0-100.0); Site Drawn LEFT BRACHIAL
[2021-12-16 14:15] LABS: Alanine Aminotransferase 18 U/L (6-50); Albumin Level 3.9 g/dL (3.5-5.1); Alkaline Phosphatase 121 U/L (38-126); Anion Gap 15 mmol/L (8-16); Aspartate Amino Transferase 34 U/L (17-59); Blood Urea Nitrogen 76 mg/dL (9-20); Calcium 8.4 mg/dL (8.4-10.2); Carbon Dioxide 29 mmol/L (22-30); Chloride 89 mmol/L (98-107); Estimated CRCL calculation 33 ml/min; Estimated Glomerular Filt Rate 36; Glucose 166 mg/dL (65-110); Potassium 5.2 mmol/L (3.4-5.0); Sodium 133 mmol/L (137-145)
[2021-12-16 14:16] LABS: INR 1.4; Prothrombin Time 16.2 Seconds (11.1-14.7)
[2021-12-16 14:17] LABS: Partial Thromboplastin Time 29.8 SECONDS (22.3-36.8)
[2021-12-16 14:31] LABS: Hypochromasia 1+ (NORMAL); Ovalocytes 1+ (NORMAL); Schistocytes None Seen (NORMAL); Target Cells 1+ (NORMAL)
[2021-12-16 14:32] LABS: NT Pro B Type Natriuretic Pept 17900 pg/mL (5-100); Troponin I 0.036 ng/mL (0.000-0.034)
[2021-12-16 14:56] LABS: Appearance Urine Clear (Clear); Bilirubin Urine Negative (Negative); Blood Urine Negative (Negative); Color Urine Yellow (Yellow); Glucose Urine UA Negative (Negative); Ketones Urine Negative (Negative); Leukocyte Esterase Ur Negative LEU/UL (Negative); Nitrate Urine Negative (Negative); Protein Urine Negative (Negative); Urobilinogen Urine 0.2 mg/dL (<2.0)
[2021-12-16] MEDS: FUROSEMIDE INJ 40 MG/4 ML VIAL IV PUSH (15:16)
[2021-12-16 15:23] LABS: Add Urine Microscopic? NO
[2021-12-16 15:29] LABS: SARS-CoV-2 RNA PCR Negative
--- NOTE | 2021-12-16 17:20 | ADMGEN ---
This patient, Zack Orellana, was admitted to IMU Room 202-01 at 1713. Patient/family oriented to hospital policies and general routines including ID bracelet, bed and alarms, visiting hours, pain management, procedures, bathroom and other care routines, personal items, smoking policy, room service/diet, and visiting hours. Information on how to activate the Rapid Response Team has been discussed. Patient/Family are encouraged to report perceived risks to care and to ask questions if they do not understand what they are told or what they should do.
--- NOTE | 2021-12-16 20:00 | PM.IMHP ---
H&P: HPI History of Present Illness Date/Time: 12/16/21 20:00 Chief Complaint: Scrotal swelling. Narrative: This is a very pleasant 81-year-old male with congestive heart failure (EF as low as 45%, most recent 55 to 60%), severe pulmonary hypertension, coronary artery disease, chronic respiratory failure with hypoxia, chronic obstructive pulmonary disease, paroxysmal atrial fibrillation, type 2 diabetes mellitus, and other comorbidities who presented to the emergency department from home for evaluation of scrotal swelling. He has chronic lower extremity edema however over the last several days his edema has gotten so severe that his scrotum is swollen to the size of a grapefruit and he has had increasing dyspnea on lesser and lesser exertion. He is also having difficulties urinating given the amount of swelling in the scrotum and he is only going a small amount of time. He was hospitalized last month with CHF at which time he was started on torsemide 40 milligrams b.i.d. of which he states compliance. Workup in the ED was significant for a troponin of 0.036, proBNP 57220, BUN 76, creatinine 1.80, sodium 133, potassium 5.2. Chest x-ray showed diffuse bilateral airspace disease with peribronchial thickening which may represent edema or pneumonia. With further questioning he gives no history to suggest active pulmonary infection and he specifically denies fever, chills, sweats, congestion, sore throat, cough, nausea, vomiting, and diarrhea. On exam his right leg is erythematous at the ankle, streaking up the medial leg to the thigh. He says it is not unusual for either leg to be read however it looks a bit more red than usual however it is not tender. At the time my evaluation he was on 10 liters high-flow and he was transition to BiPAP with significant improvement. A Dudley catheter was placed in the emergency department and he has put out quite of bit of urine after receiving Bumex 1 milligram IV. Review of Systems Review of Systems: Twelve systems were reviewed and are negative except for as per HPI. [facility] Past Medical History Medical History Arthritis Benign prostatic hyperplasia Cerebrovascular accident 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 Chronic anemia Chronic pain Patient had a pain pump inserted in February 2019. Chronic respiratory failure with hypoxia, on home oxygen therapy Baseline oxygen requirement is 3 L nasal cannula. Congestive heart failure Echocardiogram February 2021: EF 55-60% (improved from prior echo of 45%) left ventricular septal wall motion abnormal related to bundle-branch block, grade 2 diastolic dysfunction, severe pulmonary hypertension with RVSP of 74, severe enlargement of the right atrium Coronary artery disease Gastroesophageal reflux disease History of bleeding peptic ulcer Hypertension Iron deficiency anemia Receives frequent iron infusions. Moderate pulmonary hypertension Estimated pulmonary arterial systolic pressure was 54 mmHg on echocardiogram dated 10/25/2020. MALLORY (obstructive sleep apnea) Paroxysmal atrial fibrillation Pseudobulbar affect Spinal stenosis Type 2 diabetes mellitus Hemoglobin A1c was 6.3% on 10/25/2020. Surgical History Surgical History History of bilateral cataract extraction History of hernia repair Family History Family History Father Acute myocardial infarction Sibling Acute myocardial infarction Brain aneurysm Other No problems noted. Mother Breast cancer Social History Social History Social History: Healthcare power of deputy attorney general: Lennie Cruz, granddaughter. Code status: Full code. Smoking packs per day: 3 Smoking cigarettes per day: 60.0 Years smoked: 40 Smoking pack-ye
[2021-12-16 20:14] LABS: Glucose Point of Care 202 mg/dl (65-105)
[2021-12-16] MEDS: BUMETANIDE INJ 1 MG/4 ML VIAL IV PUSH (21:48)
--- NOTE | 2021-12-16 22:10 | PCRCNOTE ---
Pt placed on home AVAPS unit with 10l/m of o2 bled in, pt continues to have periods of desaturations. Periods of apnea noted as well. Pt being monitored via telemetry and continuous pulse ox.
[2021-12-16 22:49] LABS: Alveolar/Arterial O2 Gradient 294.2 mmHg; Base Excess ABG 6.8 mEq/l (+/-2.0); Carboxyhemoglobin 0.9 % THb (0-2.0); Fractional Inspired Oxygen 60 %; HCO3 ABG 34.1 mEq/l (22.0-26.0); Methemoglobin ABG 0.2 %THb (0-1.5); Oxygen Saturation ABG 89.5 % (95.0-100.0); PO2 ABG 61.9 mmHg (80.0-100.0); PO2 FiO2 Ratio Arterial Blood 1.03 %; Reduced Hemoglobin 12.1 %THb (0-5.0); Total Hemoglobin 9.8 g/dL (12.0-18.0); pH ABG 7.336 (7.350-7.450)
[2021-12-16 22:55] LABS: PCO2 ABG 65.2 mmHg (35.0-45.0)
[2021-12-16 22:56] LABS: Device BIPAP; Modified Allen's Test Pass; Oxyhemoglobin 86.8 % THb (90.0-100.0); Site Drawn LEFT RADIAL
[2021-12-17] VITALS (21 sets, daily range): BP systolic 100–118; BP diastolic 50–75; PULSE 70–103; RESP 18–22; TEMP 36.5–36.7; O2SAT 90–100
--- NOTE | 2021-12-17 | ECHO_ITS ---
Patient Info Name: Zack Orellana Age: 81 years : 1940 Gender: Male Ht: 67 in Wt: 234 lbs BSA: 2.28 m2 HR: 88 bpm BP: 108 / 63 mmHg Heart Rhythm: Atrial Fibrillation Technical Quality: Good Exam Date: 12/17/2021 12:40 PM Exam Location: [facility] Patient Status: Inpatient Admit Date: 12/16/2021 Staff Ordering Physician: Waqas Shankar DO Motor Bus Driver: Mady Berkowitz RDCS Attending Provider: Feliz Tran MD Referring Physician: Raad KEATING; Exam Type: CA echo doppler color flow Study Info Indications - CHF Complete two-dimensional, color flow and Doppler transthoracic echocardiogram is performed. Summary 1. Complete two-dimensional, color flow and Doppler transthoracic echocardiogram is performed. 2. Left ventricular chamber dimension is mildly enlarged. 3. Left ventricular systolic function is mildly reduced, estimated at 45-50%. 4. Left ventricular septal wall motion is abnormal with septal motion related to bundle branch block. 5. The left ventricular diastolic function is abnormal. 6. E/e' 10 is mildly elevated. 7. Atrial fib/flutter. 8. Right ventricular systolic function is reduced and with abnormal TAPSE 1.2 cm. 9. Left atrial chamber dimension is moderately enlarged. 10. Right atrial chamber dimension is mildly enlarged. 11. There is mild aortic valve sclerosis. 12. The mitral valve has mildly calcified annulus. 13. There is mild mitral valve regurgitation. 14. There is mild tricuspid valve regurgitation. 15. Severe pulmonary hypertension, estimated pulmonary arterial systolic pressure is 63 mmHg. 16. Dilated inferior vena cava with <50% collapse upon inspiration consistent with significantly elevated right atrial pressure, 15 mmHg. Left Ventricle E/e' 10 is mildly elevated. Atrial fib/flutter. Left ventricular chamber dimension is mildly enlarged. Left ventricular systolic function is mildly reduced, estimated at 45-50%. Left ventricular septal wall motion is abnormal with septal motion related to bundle branch block. The left ventricular diastolic function is abnormal. Right Ventricle Right ventricular systolic function is reduced and with abnormal TAPSE 1.2 cm. Right ventricular chamber dimension is normal. Left Atria Left atrial chamber dimension is moderately enlarged. Right Atria Right atrial chamber dimension is mildly enlarged. Aortic Valve The aortic valve is trileaflet. There is mild aortic valve sclerosis. There is no aortic valve stenosis. There is no aortic valve regurgitation. Pulmonic Valve There is no pulmonic regurgitation. Mitral Valve The mitral valve has mildly calcified annulus. There is no mitral valve stenosis. There is mild mitral valve regurgitation. Tricuspid Valve There is mild tricuspid valve regurgitation. Severe pulmonary hypertension, estimated pulmonary arterial systolic pressure is 63 mmHg. Pericardium/Pleural There is no pericardial effusion. Inferior Vena Cava Dilated inferior vena cava with <50% collapse upon inspiration consistent with significantly elevated right atrial pressure, 15 mmHg. Aorta The aortic root size at the sinus of Valsalva is normal. Left Ventricular Outflow Tract Name Value Normal LVOT 2D
[2021-12-17 04:44] LABS: Basophils Percent Auto 0.1 % (0.2-1.2); Eosinophils Absolute Auto 0.1 K/mm3 (0-0.3); Eosinophils Percent Auto 0.6 % (0-4.4); Hematocrit 29.1 % (42.0-52.0); Hemoglobin 8.4 g/dL (14.0-18.0); Immature Granulocyte Absolute 0.04 K/mm3 (0.00-0.031); Immature Granulocyte Percent A 0.4 % (0-0.5); Immature Platelet Fraction Pct 10.2 % (0.9-11.2); Lymphocytes Absolute Auto 0.33 K/mm3 (0.9-3.2); Lymphocytes Percent Auto 3.2 % (18.3-44.2); Mean Corpuscular HGB Conc 28.9 g/dl (32-36); Mean Corpuscular Hemoglobin 23.7 pg (26-34); Mean Corpuscular Volume 82.2 fl (80-100); Monocytes Absolute Auto 0.7 K/mm3 (0.1-0.6); Monocytes Percent Auto 6.9 % (2.6-8.5); Neutrophils Absolute Auto 9.1 K/mm3 (1.3-6.7); Neutrophils Percent Auto 88.8 % (45.5-73.1); Nucleated Red Blood Cells Perc 0.2 % (0.0-0.2); Platelet Count Result 108 k/mm3 (150-375); Red Blood Count 3.54 M/mm3 (4.6-6.20); Red Cell Distribution Width 19.6 % (11.5-14.5); White Blood Count 10.2 K/mm3 (4.5-10.0)
[2021-12-17 04:54] LABS: Magnesium 1.4 mg/dL (1.6-2.3)
[2021-12-17 05:13] LABS: Ovalocytes 1+ (NORMAL); Platelet Estimate Decreased (Adequate); Schistocytes 1+ (NORMAL); Target Cells 1+ (NORMAL)
[2021-12-17 07:25] LABS: Troponin I 0.031 ng/mL (0.000-0.034)
[2021-12-17 07:41] LABS: Alanine Aminotransferase 14 U/L (6-50); Albumin Level 3.4 g/dL (3.5-5.1); Alkaline Phosphatase 97 U/L (38-126); Anion Gap 15 mmol/L (8-16); Aspartate Amino Transferase 25 U/L (17-59); Bilirubin,Total 0.6 mg/dL (0.2-1.3); Blood Urea Nitrogen 75 mg/dL (9-20); Calcium 8.3 mg/dL (8.4-10.2); Carbon Dioxide 32 mmol/L (22-30); Chloride 89 mmol/L (98-107); Estimated CRCL calculation 36 ml/min; Estimated Glomerular Filt Rate 39; Glucose 172 mg/dL (65-110); Potassium 4.7 mmol/L (3.4-5.0); Sodium 136 mmol/L (137-145)
[2021-12-17 08:09] LABS: Glucose Point of Care 189 mg/dl (65-105)
--- NOTE | 2021-12-17 08:11 | PM.CNCAR ---
Assessment and Plan Assessment and plan (1) Acute on chronic diastolic heart failure: Code(s): I50.33 - Acute on chronic diastolic (congestive) heart failure Status: Acute Assessment and Plan: Continue with Bumetanide 1 mg IV BID. Monitor electrolytes. Start Jardiance 10 mg daily. Obtain echo. (2) A-fib: Code(s): I48.91 - Unspecified atrial fibrillation Status: Acute Assessment and Plan: Paroxysmal Atrial fib/flutter. In atrial flutter/tachycardia with normal rate currently. No on anticoagulation due to history of severe PUD bleed and he refuses anticoagulation since. (3) Hypertension: Code(s): I10 - Essential (primary) hypertension Status: Chronic Assessment and Plan: Stable. (4) CAD (coronary artery disease): Code(s): I25.10 - Atherosclerotic heart disease of [place] coronary artery without angina pectoris Status: Acute Assessment and Plan: Stable. History of Present Illness History of Present Illness Consult date/time: 12/17/21 08:11 Reason For Visit: Acute on Chronic CHF/Acute on Chronic Resp Failure Narrative: 81 yr old man presents to hospital due to scrotal and legs swelling x several day.? His regular electrical engineering director is at [facility], Dr. Caban, and sees him regularly. He has a history of CHF, CAD with AR and several stents (last cath last year per patient), atrial fib/flutter (not on anticoagulation due to significant peptic ulcer bleed in the past), DM, hypertension, MALLORY, iron deficiency anemia requiring iron infusions. Reports he came to hospital for scrotal swelling and both leg swelling for several days. He saw Dr. Caban just last week and no edema at that time. Recently he also had nose bleed and required blood transfusions as Hb got low enough with his chronic anemia. He has not changed his diet and has not consumed more salty foods. He can normally walk 20 feet with his cane prior to [place]RAZA. Denies chest pain, palpitations, orthopnea, PND, dizziness. Review of Systems Review of Systems: All systems reviewed & are unremarkable except as noted in HPI and below Constitutional: Constitutional: Reports as per HPI, Denies chills and Denies fever(s) Cardiovascular: Cardiovascular: Reports as per HPI, Denies chest pain, Reports leg edema and Denies lightheadedness Respiratory: Respiratory: Reports as per HPI and Reports dyspnea Gastrointestinal: Gastrointestinal: Reports as per HPI and Denies abdominal pain Genitourinary: Genitourinary: Reports as per HPI and Denies dysuria Musculoskeletal: Musculoskeletal: Reports as per HPI Neurologic: Reports as per HPI, Denies dizziness and Denies syncope [facility] Past Medical History Medical History Arthritis Benign prostatic hyperplasia Cerebrovascular accident 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 Chronic anemia Chronic pain Patient had a pain pump inserted in February 2019. Chronic respiratory failure with hypoxia, on home oxygen therapy Baseline oxygen requirement is 3 L nasal cannula. Congestive heart failure Echocardiogram February 2021: EF 55-60% (improved from prior echo of 45%) left ventricular septal wall motion abnormal related to bundle-branch block, grade 2 diastolic dysfunction, severe pulmonary hypertension with RVSP of 74, severe enlargement of the right atrium Coronary artery disease Gastroesophageal reflux disease History of bleeding peptic ulcer Hypertension Iron deficiency anemia Receives frequent iron infusions. Moderate pulmonary hypertension Estimated pulmonary arterial systolic pressure was 54 mmHg on echocardiogram dated 10/25/2020. Paroxysmal atrial fibrillation Pseudobulbar affect Spinal stenosis Type 2 diabetes mellitus Hemoglobin A1c was 6.3% on 10/25/2020. Surgical History Surgical History History of
[2021-12-17] MEDS: ENOXAPARIN 40 MG/0.4 ML SYRINGE SUB-Q (09:16)
[2021-12-17] MEDS: EMPAGLIFLOZIN 10 MG TABLET PO (09:16)
[2021-12-17] MEDS: BUMETANIDE INJ 1 MG/4 ML VIAL IV PUSH ×2 (09:16→17:12)
[2021-12-17] MEDS: PREGABALIN (*CRX) 75 MG CAPSULE PO ×2 (09:18→20:55)
--- NOTE | 2021-12-17 12:09 | PM.IMPN ---
Progress Note: A&P Assessment and Plan (1) Acute on chronic congestive heart failure: Code(s): I50.9 - Heart failure, unspecified Status: Acute Assessment and Plan: Patient wit extensive mostly flank and scrotal edema but also noted with some pedal edema. CXR showing diffuse bilateral airspace dz and BNP 18K. Started on Bumex IV. Unclear why he decompensated. No proteinuria to think this is nephrotic syndrome. PT elevated but albumin and LFTs okay making cirrhosis less likely. Will check RUQ to assess for cirrhosis. Echo in June showing EF 50-55% with Grade III diastolic dysfunction and severe pHTN. He probably has severe right sided failure. Continue Bumex. Daily weights CHF teaching. (2) Acute and chronic respiratory failure with hypoxia: Code(s): J96.21 - Acute and chronic respiratory failure with hypoxia Status: Acute Assessment and Plan: Patient with acute respiratory on 10 liters high-flow prior to starting on BiPAP. He has been weaned to 4L. He has chronic respiratory failure at 3L at home. Contineu to wean O2 as toelrated. (3) Cellulitis of right leg: Code(s): L03.115 - Cellulitis of right lower limb Status: Acute Assessment and Plan: Mild cellulitis in the right leg and he has been started on Ancef. Minimal erythema. Follow (4) Acute kidney injury: Code(s): N17.9 - Acute kidney failure, unspecified Status: Acute Assessment and Plan: Cr 1.0 on 11/14/21 but cr 1.8 on admission. Possibly related to obstruction from significant scrotal edema. Dudley catheter has been inserted and is draining nicely. Cr about the same today. Monitor closely on Bumex (5) Electrolyte abnormality: Code(s): E87.8 - Other disorders of electrolyte and fluid balance, not elsewhere classified Status: Acute Assessment and Plan: Sodium is a bit low at 133 but better today associated with above treatment. Potassium was a bit high but improved today. Follow. (6) MALLORY (obstructive sleep apnea): Code(s): G47.33 - Obstructive sleep apnea (adult) (pediatric) Status: Acute Assessment and Plan: Fine myoclonic jerks noted of the upper extremities while he is asleep. ABG did not improve when he was placed on AVAPS and he was transition to BiPAP. He may need a another sleep study. (7) A-fib: Code(s): I48.91 - Unspecified atrial fibrillation Status: Acute Assessment and Plan: He is not on long-term anticoagulation as he had recurrent issues with epistaxis. Not on rate controlling agents either. Continue to monitor on tele (8) Diet-controlled diabetes mellitus: Code(s): E11.9 - Type 2 diabetes mellitus without complications Status: Acute Assessment and Plan: No recent A1c. The patient's blood glucose was reviewed on 12/17 Glucose remains mildly elevated Continue AccuCheks covering with sliding scale. Hypoglycemia protocol available as needed. Continue to monitor Subjective Date/time seen: 12/17/21 12:09 Interval history: 81yo male with pAFib, mod pHTN, CAD, CHF and chronic respirtory failure (3L) here for LE and scrotal edema. Patient slept well last night. He denies any chest pain or shortness of. Scrotal edema feels better. He denies any nausea and vomiting. He states the edema has been going on for the past 3-4 days. He does have sleep apnea and wears noninvasive ventilation and has been compliant with this at home. Exam Narrative: AF 97.7 108/63 103 20 91% 4L HFNC Gen - NARD sittiing up in bed Chest - clear distant BS. CV - RRR S1/S2. Tele showing PVCs, nonsustained V-tach x1, no sinus rhythm with sinus arrhythmia and first-degree AV block Abd - Soft, obese, NT, LLQ hernia. Abd wall edema Back - flank pitting edema - large scrotal edema. Dudley secured draining clear yellow urine Ext - woody mild pitting pedal edema. DP: 2+ right and 1+ left Psych - Nml mood and affe
[2021-12-17 12:45] LABS: Glucose Point of Care 258 mg/dl (65-105)
--- NOTE | 2021-12-17 13:00 | PCOTNOTE ---
Patient just received lunch, requested OT to come back after lunch. Will follow.
[2021-12-17] MEDS: MAGNESIUM SULF 2 GM/WATER 50ML 2 GM/50 ML BAG IVPB (13:33)
[2021-12-17] MEDS: polyethylene glycoL 3350 17 GM POWD.PACK PO (13:33)
[2021-12-17] MEDS: ACETAMINOPHEN 325 MG TABLET 650 MG PO (15:15)
[2021-12-17 16:42] LABS: Glucose Point of Care 245 mg/dl (65-105)
[2021-12-17] MEDS: INSULIN ASPART (*BKC) 100 UNITS/ML SUB-Q (17:13)
[2021-12-17 19:46] LABS: Glucose Point of Care 222 mg/dl (65-105)
[2021-12-17] MEDS: TAMSULOSIN HCL 0.4 MG CAPSULE PO (20:55)
[2021-12-17] MEDS: DONEPEZIL HCL 5 MG TABLET PO (20:55)
[2021-12-18] VITALS (17 sets, daily range): BP systolic 107–143; BP diastolic 35–70; PULSE 69–91; RESP 16–21; TEMP 36.3–37.1; O2SAT 92–98
[2021-12-18] MEDS: ACETAMINOPHEN 325 MG TABLET 650 MG PO (04:54)
[2021-12-18 04:58] LABS: Hemoglobin 8.3 g/dL (14.0-18.0); Immature Platelet Fraction Pct 12.7 % (0.9-11.2); Mean Corpuscular HGB Conc 27.7 g/dl (32-36); Mean Corpuscular Hemoglobin 23.8 pg (26-34); Platelet Count Result 90 k/mm3 (150-375); Red Blood Count 3.49 M/mm3 (4.6-6.20); Red Cell Distribution Width 19.5 % (11.5-14.5); White Blood Count 6.8 K/mm3 (4.5-10.0)
[2021-12-18 05:14] LABS: Hemoglobin A1C 5.8 % (<5.7)
[2021-12-18 05:20] LABS: Alanine Aminotransferase 11 U/L (6-50); Albumin Level 3.2 g/dL (3.5-5.1); Alkaline Phosphatase 98 U/L (38-126); Anion Gap 9 mmol/L (8-16); Aspartate Amino Transferase 30 U/L (17-59); Bilirubin,Total 0.6 mg/dL (0.2-1.3); Blood Urea Nitrogen 54 mg/dL (9-20); Calcium 7.9 mg/dL (8.4-10.2); Carbon Dioxide 39 mmol/L (22-30); Chloride 88 mmol/L (98-107); Estimated CRCL calculation 43 ml/min; Estimated Glomerular Filt Rate 49; Glucose 174 mg/dL (65-110); Magnesium 1.7 mg/dL (1.6-2.3); Phosphorus 3.5 mg/dL (2.5-4.5); Potassium 3.7 mmol/L (3.4-5.0); Sodium 136 mmol/L (137-145)
[2021-12-18 06:07] LABS: Anisocytosis 2+ (NORMAL); Band Neutrophils Percent 6 % (0-6); Basophils Absolute Manual 0.13 K/mm3 (0.0-0.1); Basophils Percent Manual 2 % (0-1); Eosinophils Absolute Manual 0.13 K/mm3 (0.02-0.5); Eosinophils Percent Manual 2 % (0-4); Giant Platelets Present; Lymphocytes Absolute Manual 0.13 K/mm3 (1.1-4.5); Macrocytosis 2+ (NORMAL); Metamyelocytes Percent 24 %; Microcytosis 1+ (NORMAL); Monocytes Percent Manual 3 % (3-9); Neutrophils Absolute Manual 4.55 K/mm3 (1.3-6.7); Neutrophils Percent Manual 61 % (46-73); Ovalocytes 2+ (NORMAL); Platelet Estimate Decreased (Adequate); Poikilocytosis 2+ (NORMAL); Schistocytes None Seen (NORMAL); Total Cells Counted 100
[2021-12-18 06:08] LABS: Hypochromasia 2+ (NORMAL); Smudge Cells FEW; Stomatocytes 1+ (NORMAL); Target Cells 1+ (NORMAL)
--- NOTE | 2021-12-18 07:46 | PM.PNCARD ---
Progress Note: A&P Assessment and Plan (1) Acute on chronic diastolic (congestive) heart failure: Code(s): I50.33 - Acute on chronic diastolic (congestive) heart failure Status: Acute Assessment and Plan: Continue with Bumetanide 1 mg IV BID. Monitor electrolytes. Started Jardiance 10 mg daily. 12/17/21 Echo: EF 45-45%, diastolic dysfunction (E/e' 10), severe pulm hypertension with RVSP 63 mmHg. His regular tile and marble installer is Dr. Caban at [facility] who he sees regularly. (2) A-fib: Code(s): I48.91 - Unspecified atrial fibrillation Status: Acute Assessment and Plan: Paroxysmal Atrial fib/flutter. In atrial flutter/tachycardia with normal rate currently. No on anticoagulation due to history of severe PUD bleed and he refuses anticoagulation since. (3) Hypertension: Code(s): I10 - Essential (primary) hypertension Status: Chronic Assessment and Plan: Stable. (4) CAD (coronary artery disease): Code(s): I25.10 - Atherosclerotic heart disease of [place] coronary artery without angina pectoris Status: Acute Assessment and Plan: Stable. (5) Liver cirrhosis: Code(s): K74.60 - Unspecified cirrhosis of liver Status: Acute Assessment and Plan: Noted on RUQ US. This could be contributing to diastolic dysfunction with ascites, scrotal swelling and edema of legs. Start Aldactone 25 mg daily. Monitor Potassium and renal function. Subjective Date/time seen: 12/18/21 07:46 Interval history: Denies chest pain or sob. Complains of RUQ discomfort, scrotal swelling and right leg discomfort. Exam Const: General: cooperative, healthy appearing and comfortable Nutritional Appearance: obese Resp: Auscultation: no crackles, no rales, no rhonchi, no wheezes and diminished lung sounds Cardio: Jugular venous distension: no JVD Rate: regular rate Rhythm: abnormal rhythm Heart sounds: no murmurs Peripheral pulses: dorsalis pedis present GI: GI Palp: No abdominal tenderness and Yes Soft to palpation : Scrotum: scrotal swelling Neuro: General: oriented to person, oriented to place and oriented to time Extrem: Right lower extremity: edema Left lower extremity: no edema Other: Mild edema of right leg with erythema and blistering. Objective Data Vital Signs Vital Signs: Vital Signs - 24 hr 12/17/21 08:14 12/17/21 08:00 12/17/21 08:00 Temperature 97.7 F Pulse Rate 88 93 88 Respiratory Rate 20 18 20 Blood Pressure 108/63 Pulse Oximetry 91 100 91 Oxygen Delivery High Flow Nasal Cannula High Flow Nasal Cannula Oxygen Flow Rate 4 4 Fraction of Inspired Oxygen 12/17/21 08:00 12/17/21 10:00 12/17/21 12:00 Temperature Pulse Rate 92 103 H 103 H Respiratory Rate 20 Blood Pressure Pulse Oximetry 91 Oxygen Delivery High Flow Nasal Cannula Oxygen Flow Rate 4 Fraction of Inspired Oxygen 35 12/17/21 12:00 12/17/21 12:00 12/17/21 13:22 Temperature 98 F Pulse Rate 94 98 Respiratory Rate 22 H Blood Pressure 118/61 Pulse Oximetry 90 Oxygen Delivery High Flow Nasal Cannula Oxygen Flow Rate 4 Fraction of Inspired Oxygen 12/17/21 14:00 12/17/21 13:41 12/17/21 16:00 Temperature 97.8 F Pulse Rate 93 90 Respiratory Rate 18 Blood Pressure 100/75 Pulse Oximetry 95 Oxygen Delivery High Flow Nasal Cannula Oxygen Flow Rate 5 Fraction of Inspired Oxygen 12/17/21 16:00 12/17/21 16:00 12/17/21 18:00 Temperature Pulse Rate 101 H 101 H 88 Respiratory Rate 18 Blood Pressure Pulse Oximetry 95 Oxygen Delivery High Flow Nasal Cannula Oxygen Flow Rate 4 Fraction of Inspired Oxygen 35 12/17/21 19:50 12/17/21 22:32 12/17/21 22:34 Temperature 97.7 F Pulse Rate 77 77 Respiratory Rate 22 H 19 Blood Pressure 112/50 L Pulse Oximetry 92 97 97 Oxygen Delivery BiPAP BiPAP Oxygen Flow Rate Fraction of Inspired Oxygen 35 12/17/21 20:00
[2021-12-18 08:22] LABS: Glucose Point of Care 198 mg/dl (65-105)
[2021-12-18] MEDS: BUMETANIDE INJ 1 MG/4 ML VIAL IV PUSH ×2 (09:06→16:41)
[2021-12-18] MEDS: SPIRONOLACTONE 25 MG TABLET PO (09:06)
[2021-12-18] MEDS: polyethylene glycoL 3350 17 GM POWD.PACK PO (09:06)
[2021-12-18] MEDS: EMPAGLIFLOZIN 10 MG TABLET PO (09:07)
[2021-12-18] MEDS: PREGABALIN (*CRX) 75 MG CAPSULE PO ×2 (09:12→20:03)
--- NOTE | 2021-12-18 11:40 | PCPTNOTE ---
Attempted to see patient for PT at this time, however patient declined. Patient reported he is short of breath from just walking to and from bathroom, and needs time for a rest break.
[2021-12-18 11:49] LABS: Glucose Point of Care 195 mg/dl (65-105)
--- NOTE | 2021-12-18 14:21 | PM.IMPN ---
Progress Note: A&P Assessment and Plan (1) Acute on chronic congestive heart failure: Code(s): I50.9 - Heart failure, unspecified Status: Acute Assessment and Plan: Patient with extensive mostly flank and scrotal edema but also noted with some pedal edema. CXR showing diffuse bilateral airspace dz and BNP 18K. Started on Bumex IV. Unclear why he decompensated. No proteinuria to think this is nephrotic syndrome. PT elevated but albumin and LFTs okay making cirrhosis less likely. RUQ reveals cirrhosis of liver. Echo in June showing EF 50-55% with Grade III diastolic dysfunction and severe pHTN. He probably has severe right sided failure. Continue Bumex. Daily weights CHF teaching. Cardiology following Echo 12/17/2021: EF 45-50% diastolic dysfunction severe pulmonary hypertension with RVSP 63 mm Hg Started on Jardiance 10 mg daily (2) Acute and chronic respiratory failure with hypoxia: Code(s): J96.21 - Acute and chronic respiratory failure with hypoxia Status: Acute Assessment and Plan: Patient with acute respiratory on 10 liters high-flow prior to starting on BiPAP. He has been weaned to 4L. He has chronic respiratory failure at 3L at home. Contineu to wean O2 as toelrated. (3) Cellulitis of right leg: Code(s): L03.115 - Cellulitis of right lower limb Status: Acute Assessment and Plan: Mild cellulitis in the right leg and he has been started on Ancef. Minimal erythema. Follow Venous duplex negative for DVT (4) Acute kidney injury: Code(s): N17.9 - Acute kidney failure, unspecified Status: Acute Assessment and Plan: Cr 1.0 on 11/14/21 but cr 1.8 on admission. Possibly related to obstruction from significant scrotal edema. Dudley catheter has been inserted and is draining nicely. Cr slowly improving. Continue to monitor closely on Bumex (5) Electrolyte abnormality: Code(s): E87.8 - Other disorders of electrolyte and fluid balance, not elsewhere classified Status: Acute Assessment and Plan: Sodium is a bit low at 133 but stable associated with above treatment. Potassium was a bit high but improved t. Follow. (6) MALLORY (obstructive sleep apnea): Code(s): G47.33 - Obstructive sleep apnea (adult) (pediatric) Status: Acute Assessment and Plan: Fine myoclonic jerks noted of the upper extremities while he is asleep. ABG did not improve when he was placed on AVAPS and he was transition to BiPAP. He may need a another sleep study. (7) A-fib: Code(s): I48.91 - Unspecified atrial fibrillation Status: Acute Assessment and Plan: He is not on long-term anticoagulation as he had recurrent issues with epistaxis. Not on rate controlling agents either. Continue to monitor on tele (8) Diet-controlled diabetes mellitus: Code(s): E11.9 - Type 2 diabetes mellitus without complications Status: Acute Assessment and Plan: No recent A1c. The patient's blood glucose was reviewed on 12/17 Glucose remains mildly elevated Continue AccuCheks covering with sliding scale. Hypoglycemia protocol available as needed. Continue to monitor A1c of 5.8 (9) Liver cirrhosis: Code(s): K74.60 - Unspecified cirrhosis of liver Status: Acute Assessment and Plan: None likely related to right heart failure/severe pulmonary hypertension. Seems cardiac in origin no prior hx of alcohol use Started on Aldactone. Titrate dose up as tolerated Plan DVT prophylaxis on Lovenox Subjective Date/time seen: 12/18/21 14:21 Interval history: 81yo male with pAFib, mod pHTN, CAD, CHF and chronic respirtory failure (3L) here for LE and scrotal edema. Patient complains of scrotal pain Tylenol help some but does not take away. No nausea vomiting. Swelling is getting better. No chest pain. Review of Systems Review of Systems: All systems reviewed & are unremarkable except as noted in HPI and be
--- NOTE | 2021-12-18 14:25 | PCPTNOTE ---
Attempted to see patient for PT at this time, however patient declined. Patient reported he just got back in bed with nursing and that he was too tired, patient reported he has been walking to bathroom and back with nursing.
[2021-12-18] MEDS: HYDROcodone/acetaminophen (*CRX) 5-325 MG TABLET 1 TAB PO ×2 (14:33→19:59)
[2021-12-18 16:24] LABS: Glucose Point of Care 223 mg/dl (65-105)
[2021-12-18] MEDS: INSULIN ASPART (*BKC) 100 UNITS/ML SUB-Q (16:44)
[2021-12-18] MEDS: TAMSULOSIN HCL 0.4 MG CAPSULE PO (20:03)
[2021-12-18] MEDS: DONEPEZIL HCL 5 MG TABLET PO (20:03)
[2021-12-18 20:14] LABS: Glucose Point of Care 176 mg/dl (65-105)
[2021-12-19] VITALS (13 sets, daily range): BP systolic 117–130; BP diastolic 58–84; PULSE 76–95; RESP 16–20; TEMP 36.4–36.9; O2SAT 89–100
[2021-12-19] MEDS: ACETAMINOPHEN 325 MG TABLET 650 MG PO ×2 (00:59→19:52)
[2021-12-19] MEDS: HYDROcodone/acetaminophen (*CRX) 5-325 MG TABLET 1 TAB PO ×4 (02:25→21:38)
[2021-12-19 04:21] LABS: Hematocrit 29.8 % (42.0-52.0); Hemoglobin 8.3 g/dL (14.0-18.0); Immature Platelet Fraction Pct 13.4 % (0.9-11.2); Mean Corpuscular HGB Conc 27.9 g/dl (32-36); Mean Corpuscular Hemoglobin 24.1 pg (26-34); Mean Corpuscular Volume 86.4 fl (80-100); Platelet Count Result 87 k/mm3 (150-375); Red Blood Count 3.45 M/mm3 (4.6-6.20); Red Cell Distribution Width 19.2 % (11.5-14.5); White Blood Count 6.2 K/mm3 (4.5-10.0)
[2021-12-19 04:36] LABS: Alanine Aminotransferase 9 U/L (6-50); Albumin Level 3.3 g/dL (3.5-5.1); Alkaline Phosphatase 105 U/L (38-126); Anion Gap 10 mmol/L (8-16); Aspartate Amino Transferase 20 U/L (17-59); Bilirubin,Total 0.6 mg/dL (0.2-1.3); Blood Urea Nitrogen 38 mg/dL (9-20); Calcium 7.9 mg/dL (8.4-10.2); Carbon Dioxide 39 mmol/L (22-30); Chloride 87 mmol/L (98-107); Estimated CRCL calculation 54 ml/min; Estimated Glomerular Filt Rate > 60; Glucose 158 mg/dL (65-110); Magnesium 1.5 mg/dL (1.6-2.3); Potassium 3.4 mmol/L (3.4-5.0); Sodium 136 mmol/L (137-145)
[2021-12-19] MEDS: ONDANSETRON INJ 4 MG/2 ML VIAL IV PUSH ×2 (06:31→21:35)
[2021-12-19] MEDS: POTASSIUM CHLORIDE 20 MEQ TABLET 40 MEQ PO (07:45)
--- NOTE | 2021-12-19 08:02 | PM.PNCARD ---
Progress Note: A&P Assessment and Plan (1) Acute on chronic diastolic (congestive) heart failure: Code(s): I50.33 - Acute on chronic diastolic (congestive) heart failure Status: Acute Assessment and Plan: Continue with Bumetanide 1 mg IV BID. Monitor electrolytes. Magox 400 mg BID and KCl 40 meq x1. Started Jardiance 10 mg daily. 12/17/21 Echo: EF 45-45%, diastolic dysfunction (E/e' 10), severe pulm hypertension with RVSP 63 mmHg. His regular chief yeoman is Dr. Caban at [facility] who he sees regularly. (2) A-fib: Code(s): I48.91 - Unspecified atrial fibrillation Status: Acute Assessment and Plan: Paroxysmal Atrial fib/flutter. In atrial flutter/tachycardia with normal rate currently. No on anticoagulation due to history of severe PUD bleed and he refuses anticoagulation since. (3) Hypertension: Code(s): I10 - Essential (primary) hypertension Status: Chronic Assessment and Plan: Stable. (4) CAD (coronary artery disease): Code(s): I25.10 - Atherosclerotic heart disease of [place] coronary artery without angina pectoris Status: Acute Assessment and Plan: Stable. (5) Liver cirrhosis: Code(s): K74.60 - Unspecified cirrhosis of liver Status: Acute Assessment and Plan: Noted on RUQ US. This could be contributing to diastolic dysfunction with ascites, scrotal swelling and edema of legs. Started Aldactone 25 mg daily. Monitor Potassium and renal function. Subjective Date/time seen: 12/19/21 08:02 Interval history: Denies chest pain or sob. Complains of nausea this morning and RUQ discomfort, scrotal swelling and flank fullness and right leg discomfort. Exam Const: General: cooperative, healthy appearing and comfortable Nutritional Appearance: obese Resp: Auscultation: no crackles, no rales, no rhonchi, no wheezes and diminished lung sounds Cardio: Jugular venous distension: no JVD Rate: regular rate Rhythm: abnormal rhythm Heart sounds: no murmurs Peripheral pulses: dorsalis pedis present GI: GI Palp: No abdominal tenderness and Yes Soft to palpation : Scrotum: scrotal swelling Neuro: General: oriented to person, oriented to place and oriented to time Extrem: Right lower extremity: edema Left lower extremity: no edema Other: Mild edema of right leg with erythema and blistering. Objective Data Vital Signs Vital Signs: Vital Signs - 24 hr 12/18/21 08:05 12/18/21 10:00 12/18/21 11:50 Temperature 98.7 F 97.3 F L Pulse Rate 85 81 89 Respiratory Rate 16 17 Blood Pressure 118/60 129/35 L Pulse Oximetry 98 92 Oxygen Delivery Oxygen Flow Rate 12/18/21 12:00 12/18/21 12:00 12/18/21 14:00 Temperature Pulse Rate 89 75 73 Respiratory Rate 17 Blood Pressure Pulse Oximetry 95 Oxygen Delivery BiPAP Oxygen Flow Rate 3 12/18/21 16:00 12/18/21 16:00 12/18/21 16:36 Temperature 98.3 F Pulse Rate 73 72 75 Respiratory Rate 17 17 Blood Pressure 143/70 H Pulse Oximetry 95 98 Oxygen Delivery High Flow Nasal Cannula Oxygen Flow Rate 3 12/18/21 18:00 12/18/21 20:00 12/18/21 23:54 Temperature 98.0 F 98.0 F Pulse Rate 91 74 78 Respiratory Rate 20 20 Blood Pressure 111/53 L 121/56 L Pulse Oximetry 97 94 Oxygen Delivery Oxygen Flow Rate 12/18/21 20:00 12/18/21 20:00 12/18/21 22:00 Temperature Pulse Rate 81 81 79 Respiratory Rate Blood Pressure Pulse Oximetry 96 Oxygen Delivery High Flow Nasal Cannula Oxygen Flow Rate 3 12/19/21 00:00 12/19/21 02:00 12/19/21 00:00 Temperature Pulse Rate 79 83 79 Respiratory Rate Blood Pressure Pulse Oximetry 93 Oxygen Delivery High Flow Nasal Cannula Oxygen Flow Rate 3 12/19/21 04:00 12/19/21 04:00 12/19/21 06:00 Temperature 97.7 F Pulse Rate 82 84 78 Respiratory Rate 20 Blood Pressure 130/71 Pulse Oximetry 95 Oxygen Delivery Oxygen Flow Rate
[2021-12-19 08:27] LABS: Glucose Point of Care 156 mg/dl (65-105)
[2021-12-19] MEDS: SPIRONOLACTONE 25 MG TABLET PO ×2 (09:39→15:25)
[2021-12-19] MEDS: polyethylene glycoL 3350 17 GM POWD.PACK PO (09:39)
[2021-12-19] MEDS: ENOXAPARIN 40 MG/0.4 ML SYRINGE SUB-Q (09:40)
[2021-12-19] MEDS: EMPAGLIFLOZIN 10 MG TABLET PO (09:40)
[2021-12-19] MEDS: BUMETANIDE INJ 1 MG/4 ML VIAL IV PUSH ×2 (09:40→18:16)
[2021-12-19] MEDS: PREGABALIN (*CRX) 75 MG CAPSULE PO ×2 (09:40→21:16)
[2021-12-19] MEDS: MAGNESIUM OXIDE 400 MG TABLET PO ×2 (09:40→18:16)
[2021-12-19 11:43] LABS: Glucose Point of Care 200 mg/dl (65-105)
--- NOTE | 2021-12-19 13:09 | PM.IMPN ---
Progress Note: A&P Assessment and Plan (1) Acute on chronic congestive heart failure: Code(s): I50.9 - Heart failure, unspecified Status: Acute Assessment and Plan: Patient with extensive mostly flank and scrotal edema but also noted with some pedal edema. CXR showing diffuse bilateral airspace dz and BNP 18K. Started on Bumex IV. Unclear why he decompensated. No proteinuria to think this is nephrotic syndrome. PT elevated but albumin and LFTs okay making cirrhosis less likely. RUQ reveals cirrhosis of liver. Echo in June showing EF 50-55% with Grade III diastolic dysfunction and severe pHTN. He probably has severe right sided failure. Continue Bumex. Daily weights CHF teaching. Cardiology following Echo 12/17/2021: EF 45-50% diastolic dysfunction severe pulmonary hypertension with RVSP 63 mm Hg Started on Jardiance 10 mg daily Diuresing well. On spironolactone 25 mg daily will increase the dose (2) Acute and chronic respiratory failure with hypoxia: Code(s): J96.21 - Acute and chronic respiratory failure with hypoxia Status: Acute Assessment and Plan: Patient with acute respiratory on 10 liters high-flow prior to starting on BiPAP. He has been weaned to 4L. He has chronic respiratory failure at 3L at home. Contineu to wean O2 as toelrated. (3) Cellulitis of right leg: Code(s): L03.115 - Cellulitis of right lower limb Status: Acute Assessment and Plan: Mild cellulitis in the right leg and he has been started on Ancef. Minimal erythema. Follow Venous duplex negative for DVT Will change Ancef to cephalexin. Discussed with ID pharmacist (4) Acute kidney injury: Code(s): N17.9 - Acute kidney failure, unspecified Status: Acute Assessment and Plan: Cr 1.0 on 11/14/21 but cr 1.8 on admission. Possibly related to obstruction from significant scrotal edema. Dudley catheter has been inserted and is draining nicely. Cr slowly improving. Continue to monitor closely on Bumex (5) Electrolyte abnormality: Code(s): E87.8 - Other disorders of electrolyte and fluid balance, not elsewhere classified Status: Acute Assessment and Plan: Sodium is a bit low at 133 but stable associated with above treatment. Potassium was a bit high but improved t. Follow. (6) MALLORY (obstructive sleep apnea): Code(s): G47.33 - Obstructive sleep apnea (adult) (pediatric) Status: Acute Assessment and Plan: Fine myoclonic jerks noted of the upper extremities while he is asleep. ABG did not improve when he was placed on AVAPS and he was transition to BiPAP. He may need a another sleep study. (7) A-fib: Code(s): I48.91 - Unspecified atrial fibrillation Status: Acute Assessment and Plan: He is not on long-term anticoagulation as he had recurrent issues with epistaxis. Not on rate controlling agents either. Continue to monitor on tele (8) Diet-controlled diabetes mellitus: Code(s): E11.9 - Type 2 diabetes mellitus without complications Status: Acute Assessment and Plan: No recent A1c. The patient's blood glucose was reviewed on 12/17 Glucose remains mildly elevated Continue AccuCheks covering with sliding scale. Hypoglycemia protocol available as needed. Continue to monitor A1c of 5.8 (9) Liver cirrhosis: Code(s): K74.60 - Unspecified cirrhosis of liver Status: Acute Assessment and Plan: None likely related to right heart failure/severe pulmonary hypertension. Seems cardiac in origin no prior hx of alcohol use Started on Aldactone. Titrate dose up as tolerated Plan DVT prophylaxis on Lovenox Subjective Date/time seen: 12/19/21 13:09 Interval history: 81yo male with pAFib, mod pHTN, CAD, CHF and chronic respirtory failure (3L) here for LE and scrotal edema. 12/19/2021: Ongoing pain in the scrotal area. Swelling persists. Diuresing well. Denies any chest pain. Review of
--- NOTE | 2021-12-19 14:01 | PC.NURSE ---
On 12/19/21, the student, [Josefina Damian], provided care and completed [facility] documentation on this patient. I have reviewed the student's documentation and agree with the findings.
[2021-12-19] MEDS: MAGNESIUM SULF 2 GM/WATER 50ML 2 GM/50 ML BAG IVPB (15:25)
[2021-12-19 17:07] LABS: Glucose Point of Care 151 mg/dl (65-105)
[2021-12-19] MEDS: CEPHALEXIN 500 MG CAPSULE PO (18:15)
[2021-12-19 20:44] LABS: Glucose Point of Care 183 mg/dl (65-105)
[2021-12-19] MEDS: DONEPEZIL HCL 5 MG TABLET PO (21:16)
[2021-12-19] MEDS: TAMSULOSIN HCL 0.4 MG CAPSULE PO (21:16)
[2021-12-20] VITALS (15 sets, daily range): BP systolic 113–145; BP diastolic 62–88; PULSE 76–87; RESP 16–22; TEMP 36.2–36.7; O2SAT 93–100
[2021-12-20] MEDS: CEPHALEXIN 500 MG CAPSULE PO ×5 (00:14→23:19)
[2021-12-20] MEDS: HYDROcodone/acetaminophen (*CRX) 5-325 MG TABLET 1 TAB PO ×2 (03:27→12:20)
[2021-12-20] MEDS: ACETAMINOPHEN 325 MG TABLET 650 MG PO (03:29)
[2021-12-20 04:39] LABS: Hematocrit 30.5 % (42.0-52.0); Hemoglobin 8.4 g/dL (14.0-18.0); Immature Platelet Fraction Pct 13.3 % (0.9-11.2); Mean Corpuscular HGB Conc 27.5 g/dl (32-36); Mean Corpuscular Hemoglobin 23.9 pg (26-34); Mean Corpuscular Volume 86.6 fl (80-100); Platelet Count Result 91 k/mm3 (150-375); Red Blood Count 3.52 M/mm3 (4.6-6.20); Red Cell Distribution Width 19.1 % (11.5-14.5); White Blood Count 5.1 K/mm3 (4.5-10.0)
[2021-12-20 05:04] LABS: Alanine Aminotransferase 9 U/L (6-50); Albumin Level 3.3 g/dL (3.5-5.1); Alkaline Phosphatase 98 U/L (38-126); Aspartate Amino Transferase 30 U/L (17-59); Bilirubin,Total 0.7 mg/dL (0.2-1.3); Blood Urea Nitrogen 27 mg/dL (9-20); Carbon Dioxide > 40 mmol/L (22-30); Chloride 88 mmol/L (98-107); Estimated CRCL calculation 73 ml/min; Estimated Glomerular Filt Rate > 60; Glucose 147 mg/dL (65-110); Magnesium 1.9 mg/dL (1.6-2.3); Sodium 135 mmol/L (137-145)
[2021-12-20 05:14] LABS: Platelet Estimate Decreased (Adequate)
[2021-12-20 05:15] LABS: Giant Platelets Present; Hypochromasia 2+ (NORMAL)
[2021-12-20 05:16] LABS: Anisocytosis 2+ (NORMAL); Macrocytosis 2+ (NORMAL); Ovalocytes 1+ (NORMAL); Poikilocytosis 1+ (NORMAL); Tear Drop Cells 1+ (NORMAL)
[2021-12-20 05:17] LABS: Acanthocytes 1+ (NORMAL); Burr Cells 1+ (NORMAL); Crenated RBC 1+ (NORMAL); Schistocytes 1+ (NORMAL); Stomatocytes 1+ (NORMAL)
--- NOTE | 2021-12-20 08:11 | PM.PNCARD ---
Progress Note: A&P Assessment and Plan (1) Acute on chronic diastolic (congestive) heart failure: Code(s): I50.33 - Acute on chronic diastolic (congestive) heart failure Status: Acute Assessment and Plan: Continue with Bumetanide 1 mg IV BID. Monitor electrolytes. Magox 400 mg BID and KCl 40 meq x1. Started Jardiance 10 mg daily. 12/17/21 Echo: EF 45-45%, diastolic dysfunction (E/e' 10), severe pulm hypertension with RVSP 63 mmHg. His regular maintenance data analyst is Dr. Caban at [facility] who he sees regularly. (2) A-fib: Code(s): I48.91 - Unspecified atrial fibrillation Status: Acute Assessment and Plan: Paroxysmal Atrial fib/flutter. In atrial flutter/tachycardia with normal rate currently. Not on anticoagulation due to history of severe PUD bleed and he refuses anticoagulation since. (3) Hypertension: Code(s): I10 - Essential (primary) hypertension Status: Chronic Assessment and Plan: Stable. (4) CAD (coronary artery disease): Code(s): I25.10 - Atherosclerotic heart disease of [place] coronary artery without angina pectoris Status: Acute Assessment and Plan: Stable. (5) Liver cirrhosis: Code(s): K74.60 - Unspecified cirrhosis of liver Status: Acute Assessment and Plan: Noted on RUQ US. This could be contributing to diastolic dysfunction with ascites, scrotal swelling and edema of legs. Increased Aldactone 50 mg daily. Monitor Potassium and renal function. Subjective Date/time seen: 12/20/21 08:11 Interval history: Denies chest pain or sob. Complains scrotal swelling. Exam Const: General: cooperative, healthy appearing and comfortable Nutritional Appearance: obese Resp: Auscultation: no crackles, no rales, no rhonchi, no wheezes and diminished lung sounds Cardio: Jugular venous distension: no JVD Rate: regular rate Rhythm: abnormal rhythm Heart sounds: no murmurs Peripheral pulses: dorsalis pedis present GI: GI Palp: No abdominal tenderness and Yes Soft to palpation : Scrotum: scrotal swelling Neuro: General: oriented to person, oriented to place and oriented to time Extrem: Right lower extremity: edema Left lower extremity: no edema Other: Mild edema of right leg with erythema and blistering. Objective Data Vital Signs Vital Signs: Vital Signs - 24 hr 12/19/21 10:00 12/19/21 11:25 12/19/21 12:00 Temperature 98.4 F Pulse Rate 78 77 Respiratory Rate 16 Blood Pressure 117/58 L Pulse Oximetry 89 L 100 Oxygen Delivery Nasal Cannula Oxygen Flow Rate 5 12/19/21 16:00 12/19/21 12:00 12/19/21 14:00 Temperature 97.5 F L Pulse Rate 76 86 80 Respiratory Rate 20 Blood Pressure 121/64 Pulse Oximetry Oxygen Delivery Oxygen Flow Rate 12/19/21 16:00 12/19/21 18:00 12/19/21 12:00 Temperature Pulse Rate 77 81 Respiratory Rate Blood Pressure Pulse Oximetry 91 Oxygen Delivery Nasal Cannula Oxygen Flow Rate 5 12/19/21 16:00 12/19/21 20:00 12/19/21 20:00 Temperature 98.0 F Pulse Rate 95 Respiratory Rate 20 Blood Pressure 124/84 Pulse Oximetry 90 94 100 Oxygen Delivery Nasal Cannula Nasal Cannula Oxygen Flow Rate 5 5 12/20/21 00:00 12/20/21 00:30 12/20/21 02:17 Temperature 97.9 F Pulse Rate 78 77 79 Respiratory Rate 20 Blood Pressure 124/75 Pulse Oximetry 95 97 93 Oxygen Delivery Oxygen Flow Rate 12/20/21 04:13 12/20/21 04:00 12/19/21 20:00 Temperature 98.0 F Pulse Rate 78 78 76 Respiratory Rate 20 Blood Pressure 145/76 H Pulse Oximetry 95 97 Oxygen Delivery Oxygen Flow Rate 12/19/21 22:00 12/20/21 00:00 12/20/21 02:00 Temperature Pulse Rate 80 83 76 Respiratory Rate Blood Pressure Pulse Oximetry Oxygen Delivery Oxygen Flow Rate 12/20/21 04:00 12/20/21 06:00 12/20/21 00:00 Temperature Pulse Rate 82 77 Respiratory Rate Blood Pressure Pulse Oximetry
[2021-12-20 08:31] LABS: Glucose Point of Care 163 mg/dl (65-105)
[2021-12-20] MEDS: MAGNESIUM OXIDE 400 MG TABLET PO ×2 (09:04→17:23)
[2021-12-20] MEDS: BUMETANIDE INJ 1 MG/4 ML VIAL IV PUSH ×2 (09:04→17:22)
[2021-12-20] MEDS: polyethylene glycoL 3350 17 GM POWD.PACK PO (09:04)
[2021-12-20] MEDS: SPIRONOLACTONE 25 MG TABLET 50 MG PO (09:04)
[2021-12-20] MEDS: EMPAGLIFLOZIN 10 MG TABLET PO (09:05)
[2021-12-20] MEDS: PREGABALIN (*CRX) 75 MG CAPSULE PO ×2 (09:08→21:38)
[2021-12-20 12:35] LABS: Glucose Point of Care 193 mg/dl (65-105)
--- NOTE | 2021-12-20 12:46 | PM.IMPN ---
Progress Note: A&P Assessment and Plan (1) Acute on chronic congestive heart failure: Code(s): I50.9 - Heart failure, unspecified Status: Acute Assessment and Plan: Patient with extensive mostly flank and scrotal edema but also noted with some pedal edema. CXR showing diffuse bilateral airspace dz and BNP 18K. Started on Bumex IV. Unclear why he decompensated. No proteinuria to think this is nephrotic syndrome. PT elevated but albumin and LFTs okay making cirrhosis less likely. RUQ reveals cirrhosis of liver. Echo in June showing EF 50-55% with Grade III diastolic dysfunction and severe pHTN. He probably has severe right sided failure. Continue Bumex. Daily weights CHF teaching. Cardiology following Echo 12/17/2021: EF 45-50% diastolic dysfunction severe pulmonary hypertension with RVSP 63 mm Hg Started on Jardiance 10 mg daily Diuresing well. On spironolactone 50 daily Will give 1 dose Zaroxolyn 2.5 mg (2) Acute and chronic respiratory failure with hypoxia: Code(s): J96.21 - Acute and chronic respiratory failure with hypoxia Status: Acute Assessment and Plan: Patient with acute respiratory on 10 liters high-flow prior to starting on BiPAP. He has been weaned to 4L. He has chronic respiratory failure at 3L at home. Contineu to wean O2 as toelrated. (3) Cellulitis of right leg: Code(s): L03.115 - Cellulitis of right lower limb Status: Acute Assessment and Plan: Mild cellulitis in the right leg and he has been started on Ancef. Minimal erythema. Follow Venous duplex negative for DVT Changed Ancef to cephalexin. Discussed with ID pharmacist (4) Acute kidney injury: Code(s): N17.9 - Acute kidney failure, unspecified Status: Acute Assessment and Plan: Cr 1.0 on 11/14/21 but cr 1.8 on admission. Possibly related to obstruction from significant scrotal edema. Dudley catheter has been inserted and is draining nicely. Cr slowly improving. Continue to monitor closely on Bumex (5) Electrolyte abnormality: Code(s): E87.8 - Other disorders of electrolyte and fluid balance, not elsewhere classified Status: Acute Assessment and Plan: Sodium is a bit low at 133 but stable associated with above treatment. Potassium was a bit high but improved t. Follow. (6) MALLORY (obstructive sleep apnea): Code(s): G47.33 - Obstructive sleep apnea (adult) (pediatric) Status: Acute Assessment and Plan: Fine myoclonic jerks noted of the upper extremities while he is asleep. ABG did not improve when he was placed on AVAPS and he was transition to BiPAP. He may need a another sleep study. (7) A-fib: Code(s): I48.91 - Unspecified atrial fibrillation Status: Acute Assessment and Plan: He is not on long-term anticoagulation as he had recurrent issues with epistaxis. Not on rate controlling agents either. Continue to monitor on tele (8) Diet-controlled diabetes mellitus: Code(s): E11.9 - Type 2 diabetes mellitus without complications Status: Acute Assessment and Plan: No recent A1c. The patient's blood glucose was reviewed on 12/17 Glucose remains mildly elevated Continue AccuCheks covering with sliding scale. Hypoglycemia protocol available as needed. Continue to monitor A1c of 5.8 (9) Liver cirrhosis: Code(s): K74.60 - Unspecified cirrhosis of liver Status: Acute Assessment and Plan: None likely related to right heart failure/severe pulmonary hypertension. Seems cardiac in origin no prior hx of alcohol use Started on Aldactone. Titrate dose up as tolerated Plan DVT prophylaxis on Lovenox Subjective Date/time seen: 12/20/21 12:46 Interval history: 81yo male with pAFib, mod pHTN, CAD, CHF and chronic respirtory failure (3L) here for LE and scrotal edema. 12/19/2021: Ongoing pain in the scrotal area. Swelling persists. Diuresing well. Denies any chest pain. Line 1
[2021-12-20] MEDS: metOLazone 2.5 MG TABLET PO (13:13)
[2021-12-20 16:35] LABS: Glucose Point of Care 200 mg/dl (65-105)
[2021-12-20 20:21] LABS: Glucose Point of Care 183 mg/dl (65-105)
[2021-12-20] MEDS: DONEPEZIL HCL 5 MG TABLET PO (21:38)
[2021-12-20] MEDS: TAMSULOSIN HCL 0.4 MG CAPSULE PO (21:38)
[2021-12-21] VITALS (15 sets, daily range): BP systolic 95–136; BP diastolic 49–71; PULSE 68–78; RESP 14–22; TEMP 36.1–36.9; O2SAT 91–99
[2021-12-21 04:20] LABS: Hematocrit 27.5 % (42.0-52.0); Hemoglobin 7.7 g/dL (14.0-18.0); Immature Platelet Fraction Pct 12.8 % (0.9-11.2); Mean Corpuscular Hemoglobin 23.5 pg (26-34); Mean Corpuscular Volume 84.1 fl (80-100); Platelet Count Result 81 k/mm3 (150-375); Red Blood Count 3.27 M/mm3 (4.6-6.20); Red Cell Distribution Width 18.9 % (11.5-14.5); White Blood Count 4.3 K/mm3 (4.5-10.0)
[2021-12-21 04:57] LABS: Alanine Aminotransferase 8 U/L (6-50); Albumin Level 2.9 g/dL (3.5-5.1); Alkaline Phosphatase 100 U/L (38-126); Aspartate Amino Transferase 20 U/L (17-59); Bilirubin,Total 0.6 mg/dL (0.2-1.3); Blood Urea Nitrogen 22 mg/dL (9-20); Calcium 7.9 mg/dL (8.4-10.2); Carbon Dioxide > 40 mmol/L (22-30); Chloride 87 mmol/L (98-107); Estimated CRCL calculation 65 ml/min; Estimated Glomerular Filt Rate > 60; Glucose 143 mg/dL (65-110); Magnesium 1.7 mg/dL (1.6-2.3); Potassium 3.5 mmol/L (3.4-5.0); Sodium 136 mmol/L (137-145)
[2021-12-21 05:29] LABS: Total Cells Counted 100
[2021-12-21 05:30] LABS: Anisocytosis 1+ (NORMAL); Basophils Absolute Manual 0.08 K/mm3 (0.0-0.1); Basophils Percent Manual 2 % (0-1); Eosinophils Percent Manual 7 % (0-4); Hypochromasia 1+ (NORMAL); Lymphocytes Percent Manual 7 % (18-44); Monocytes Absolute Manual 0.25 K/mm3 (0.1-0.90); Monocytes Percent Manual 6 % (3-9); Neutrophils Percent Manual 78 % (46-73); Platelet Estimate Decreased (Adequate); Schistocytes None Seen (NORMAL); Stomatocytes 1+ (NORMAL)
[2021-12-21] MEDS: CEPHALEXIN 500 MG CAPSULE PO ×3 (06:06→17:58)
[2021-12-21 08:05] LABS: Glucose Point of Care 151 mg/dl (65-105)
--- NOTE | 2021-12-21 08:56 | PM.PNCARD ---
Progress Note: A&P Assessment and Plan (1) Acute on chronic diastolic (congestive) heart failure: Code(s): I50.33 - Acute on chronic diastolic (congestive) heart failure Status: Acute Assessment and Plan: Continue with Bumetanide 1 mg IV BID. Monitor electrolytes. Magox 400 mg BID. Started Jardiance 10 mg daily. 12/17/21 Echo: EF 45-45%, diastolic dysfunction (E/e' 10), severe pulm hypertension with RVSP 63 mmHg. His regular edi analyst is Dr. Caban at [facility] who he sees regularly. (2) A-fib: Code(s): I48.91 - Unspecified atrial fibrillation Status: Acute Assessment and Plan: Paroxysmal Atrial fib/flutter. In atrial flutter/tachycardia with normal rate currently. Not on anticoagulation due to history of severe PUD bleed and he refuses anticoagulation since. (3) Hypertension: Code(s): I10 - Essential (primary) hypertension Status: Chronic Assessment and Plan: Stable. (4) CAD (coronary artery disease): Code(s): I25.10 - Atherosclerotic heart disease of [place] coronary artery without angina pectoris Status: Acute Assessment and Plan: Stable. (5) Liver cirrhosis: Code(s): K74.60 - Unspecified cirrhosis of liver Status: Acute Assessment and Plan: Noted on RUQ US. This could be contributing to diastolic dysfunction with ascites, scrotal swelling and edema of legs. Increased Aldactone 50 mg daily. Monitor Potassium and renal function. Worsening pancytopenia. May need blood transfusions. Subjective Date/time seen: 12/21/21 08:56 Interval history: Denies chest pain or sob. States he feels a little sluggish today . Has scrotal swelling. Exam Const: General: cooperative, healthy appearing and comfortable Nutritional Appearance: obese Resp: Auscultation: no crackles, no rales, no rhonchi, no wheezes and diminished lung sounds Cardio: Jugular venous distension: no JVD Rate: regular rate Rhythm: abnormal rhythm Heart sounds: no murmurs Peripheral pulses: dorsalis pedis present GI: GI Palp: No abdominal tenderness and Yes Soft to palpation : Scrotum: scrotal swelling Neuro: General: oriented to person, oriented to place and oriented to time Extrem: Right lower extremity: edema Left lower extremity: no edema Other: Mild edema of right leg with erythema and blistering. Objective Data Vital Signs Vital Signs: Vital Signs - 24 hr 12/20/21 09:00 12/20/21 10:00 12/20/21 12:00 Temperature Pulse Rate 77 87 87 Respiratory Rate 16 16 Blood Pressure Pulse Oximetry 100 100 Oxygen Delivery Nasal Cannula Nasal Cannula Oxygen Flow Rate 4 3 12/20/21 12:00 12/20/21 12:00 12/20/21 14:00 Temperature 97.9 F Pulse Rate 77 86 84 Respiratory Rate 16 Blood Pressure 131/62 Pulse Oximetry 99 Oxygen Delivery Oxygen Flow Rate 12/20/21 16:00 12/20/21 16:00 12/20/21 20:00 Temperature 97.5 F L 97.1 F L Pulse Rate 77 79 84 Respiratory Rate 18 22 H Blood Pressure 121/64 113/88 Pulse Oximetry 97 95 Oxygen Delivery Oxygen Flow Rate 12/20/21 20:00 12/20/21 20:00 12/21/21 00:00 Temperature 98.1 F Pulse Rate 83 83 76 Respiratory Rate 20 Blood Pressure 120/52 L Pulse Oximetry 93 95 Oxygen Delivery Nasal Cannula Oxygen Flow Rate 3 12/21/21 00:00 12/20/21 22:30 12/21/21 02:06 Temperature Pulse Rate 76 75 Respiratory Rate Blood Pressure Pulse Oximetry 93 96 Oxygen Delivery Nasal Cannula Oxygen Flow Rate 3 12/21/21 04:00 12/21/21 05:50 12/21/21 04:00 Temperature 97.7 F Pulse Rate 75 72 72 Respiratory Rate 20 Blood Pressure 125/68 Pulse Oximetry 94 94 Oxygen Delivery Oxygen Flow Rate 12/21/21 08:00 12/21/21 08:18 Temperature 98.5 F Pulse Rate 75 Respiratory Rate 22 H Blood Pressure 113/57 L Pulse Oximetry 98 98 Oxygen Delivery Nasal Cannula Oxygen Flow Rate 4 Intake/Output Intake/Output: Intake & Output
[2021-12-21] MEDS: SPIRONOLACTONE 25 MG TABLET 50 MG PO (09:32)
[2021-12-21] MEDS: BUMETANIDE INJ 1 MG/4 ML VIAL IV PUSH ×2 (09:33→16:30)
[2021-12-21] MEDS: EMPAGLIFLOZIN 10 MG TABLET PO (09:33)
[2021-12-21] MEDS: MAGNESIUM OXIDE 400 MG TABLET PO ×2 (09:33→16:29)
[2021-12-21] MEDS: PREGABALIN (*CRX) 75 MG CAPSULE PO ×2 (09:33→20:44)
[2021-12-21] MEDS: polyethylene glycoL 3350 17 GM POWD.PACK PO (09:34)
[2021-12-21] MEDS: HYDROcodone/acetaminophen (*CRX) 5-325 MG TABLET 1 TAB PO ×3 (09:41→23:16)
[2021-12-21 11:50] LABS: Glucose Point of Care 240 mg/dl (65-105)
--- NOTE | 2021-12-21 11:57 | PM.IMPN ---
Progress Note: A&P Assessment and Plan (1) Acute on chronic congestive heart failure: Code(s): I50.9 - Heart failure, unspecified Status: Acute Assessment and Plan: Patient with extensive mostly flank and scrotal edema but also noted with some pedal edema. CXR showing diffuse bilateral airspace dz and BNP 18K. Started on Bumex IV. Unclear why he decompensated. No proteinuria to think this is nephrotic syndrome. PT elevated but albumin and LFTs okay making cirrhosis less likely.? RUQ reveals cirrhosis of liver.? Echo in June showing EF 50-55% with Grade III diastolic dysfunction and severe pHTN.? He probably has severe right sided failure. Continue Bumex. Daily weights CHF teaching.? Cardiology following Echo 12/17/2021: EF 45-50% diastolic dysfunction severe pulmonary hypertension with RVSP 63 mm Hg Started on Jardiance 10 mg daily Diuresing well. On spironolactone 50 daily Received Zaroxolyn 2.5 mg 12/20/2021 (2) Acute and chronic respiratory failure with hypoxia: Code(s): J96.21 - Acute and chronic respiratory failure with hypoxia Status: Acute Assessment and Plan: Patient with acute respiratory failure on 10 L high-flow prior to starting on BiPAP. He has been weaned to 4 L has chronic respiratory failure at 3 at home. Continue to wean oxygen as tolerated. (3) Cellulitis of right leg: Code(s): L03.115 - Cellulitis of right lower limb Status: Acute Assessment and Plan: It looks like he is developing cellulitis in the right leg and he has been started on Ancef. Switch to cephalexin and will conclude therapy today Venous duplex negative for DVT (4) Acute kidney injury: Code(s): N17.9 - Acute kidney failure, unspecified Status: Acute Assessment and Plan: Creatinine 1.0 on 11/14/2021 the creatinine 128 on admission. Possibly related to obstruction from significant scrotal edema. Dudley catheter has been inserted and is draining nicely. Renal functions improved since then and back normal. (5) Electrolyte abnormality: Code(s): E87.8 - Other disorders of electrolyte and fluid balance, not elsewhere classified Status: Acute Assessment and Plan: Sodium is a bit low, likely due to hypervolemia, and potassium is a bit high. Both should improve with diuresis. (6) Diet-controlled diabetes mellitus: Code(s): E11.9 - Type 2 diabetes mellitus without complications Status: Acute Assessment and Plan: No recent A1c. The patient blood glucose was reviewed Glucose remains mildly elevated A1c 5.8 Continue Accu-Cheks coming with sliding scale. Hypoglycemia protocol available as needed. Continue to monitor. (7) A-fib: Code(s): I48.91 - Unspecified atrial fibrillation Status: Acute Assessment and Plan: Is not on long-term anticoagulation as he has recurrent episodes of epistaxis. Not on rate-controlling agents either. Continue to monitor on telemetry (8) MALLORY (obstructive sleep apnea): Code(s): G47.33 - Obstructive sleep apnea (adult) (pediatric) Status: Acute Assessment and Plan: Fine myoclonic jerks noted at the upper extremities while he was asleep. If she did not improve while he was placed on AVAPS and was transitioned to BiPAP. He may need another sleep study (9) Liver cirrhosis: Code(s): K74.60 - Unspecified cirrhosis of liver Status: Acute Assessment and Plan: Non likely related to right heart failure/severe pulmonary hypertension. Since cardiac in origin. No prior history of alcohol use. Started Aldactone. Titrate dose as tolerated. Plan Fine myoclonic jerks noted of the upper extremities while he is asleep. ABG did not improve when he was placed on AVAPS and he was transition to BiPAP. Will need another sleep study as an outpatient basis Subjective Date/time seen: 12/21/21 11:57 Interval history: 81yo male with pAFib, mod pHTN, CAD, CHF and c
[2021-12-21] MEDS: INSULIN ASPART (*BKC) 100 UNITS/ML SUB-Q ×2 (12:38→16:30)
[2021-12-21] MEDS: ACETAMINOPHEN 325 MG TABLET 650 MG PO ×2 (12:40→17:58)
--- NOTE | 2021-12-21 12:42 | PCOTNOTE ---
Patient refused to participate at 12:42 this afternoon due to scrotum pain and requested to attempt at another time.
[2021-12-21] MEDS: acetaZOLAMIDE SODIUM FOR INJ 500 MG VIAL IV PUSH (15:35)
[2021-12-21] MEDS: WATER, STERILE FOR INJECTION 10 ML VIAL XX (15:40)
[2021-12-21 16:43] LABS: Glucose Point of Care 216 mg/dl (65-105)
--- NOTE | 2021-12-21 16:49 | PC.NURSE ---
pt transferred to room 316 via bed from IMU, oriented to new room and environment, reviewed MD orders and plan of care
--- NOTE | 2021-12-21 16:50 | PC.NURSE ---
This patient, Zack Orellana, was transferred to [facility] on 12/21/21 at [facility]. Personal belongings sent with patient. Report given to Lucy GRIMES. Appropriate documentation sent with patient.
[2021-12-21 16:59] LABS: Glucose Point of Care 202 mg/dl (65-105)
[2021-12-21] MEDS: ALBUMIN HUMAN 25% 25 GM/100 ML 100 ML IVPB ×2 (17:58→23:08)
[2021-12-21] MEDS: TAMSULOSIN HCL 0.4 MG CAPSULE PO (20:44)
[2021-12-21] MEDS: DONEPEZIL HCL 5 MG TABLET PO (20:44)
[2021-12-21 21:04] LABS: Glucose Point of Care 144 mg/dl (65-105)
[2021-12-22] VITALS (10 sets, daily range): BP systolic 118–130; BP diastolic 60–62; PULSE 60–85; RESP 14–24; TEMP 36.1–36.7; O2SAT 92–100
[2021-12-22] MEDS: ACETAMINOPHEN 325 MG TABLET 650 MG PO ×3 (00:53→16:46)
[2021-12-22] MEDS: ALBUMIN HUMAN 25% 25 GM/100 ML 100 ML IVPB ×3 (05:13→18:02)
[2021-12-22] MEDS: HYDROcodone/acetaminophen (*CRX) 5-325 MG TABLET 1 TAB PO ×2 (06:42→12:56)
[2021-12-22 07:31] LABS: Alanine Aminotransferase 8 U/L (6-50); Albumin Level 3.7 g/dL (3.5-5.1); Alkaline Phosphatase 112 U/L (38-126); Aspartate Amino Transferase 17 U/L (17-59); Bilirubin,Total 0.5 mg/dL (0.2-1.3); Blood Urea Nitrogen 18 mg/dL (9-20); Calcium 8.3 mg/dL (8.4-10.2); Carbon Dioxide > 40 mmol/L (22-30); Chloride 86 mmol/L (98-107); Estimated CRCL calculation 54 ml/min; Estimated Glomerular Filt Rate > 60; Glucose 164 mg/dL (65-110); Magnesium 1.6 mg/dL (1.6-2.3); Potassium 3.4 mmol/L (3.4-5.0); Sodium 137 mmol/L (137-145)
[2021-12-22 07:32] LABS: Hematocrit 29.1 % (42.0-52.0); Immature Platelet Fraction Pct 14.9 % (0.9-11.2); Mean Corpuscular HGB Conc 27.5 g/dl (32-36); Mean Corpuscular Volume 87.1 fl (80-100); Platelet Count Result 97 k/mm3 (150-375); Red Blood Count 3.34 M/mm3 (4.6-6.20); Red Cell Distribution Width 18.9 % (11.5-14.5); White Blood Count 4.5 K/mm3 (4.5-10.0)
[2021-12-22 07:45] LABS: Glucose Point of Care 162 mg/dl (65-105)
[2021-12-22 08:14] LABS: Band Neutrophils Percent 1 % (0-6); Eosinophils Absolute Manual 0.13 K/mm3 (0.02-0.5); Eosinophils Percent Manual 3 % (0-4); Lymphocytes Absolute Manual 0.76 K/mm3 (1.1-4.5); Monocytes Absolute Manual 0.63 K/mm3 (0.1-0.90); Monocytes Percent Manual 14 % (3-9); Neutrophils Absolute Manual 2.97 K/mm3 (1.3-6.7); Neutrophils Percent Manual 65 % (46-73); Nucleated Red Blood Cells 1 %; Platelet Estimate Decreased (Adequate); Total Cells Counted 100
[2021-12-22 08:15] LABS: Anisocytosis 1+ (NORMAL); Atypical Lymphocytes Present; Hypochromasia 2+ (NORMAL); Microcytosis 1+ (NORMAL); Ovalocytes 1+ (NORMAL)
[2021-12-22 08:16] LABS: Schistocytes 1+ (NORMAL); Tear Drop Cells 1+ (NORMAL)
--- NOTE | 2021-12-22 09:04 | PM.PNCARD ---
Progress Note: A&P Assessment and Plan (1) Acute on chronic diastolic (congestive) heart failure: Code(s): I50.33 - Acute on chronic diastolic (congestive) heart failure Status: Acute Assessment and Plan: Continue with Bumetanide 1 mg IV BID. Monitor electrolytes. Magox 400 mg BID. Started Jardiance 10 mg daily. 12/17/21 Echo: EF 45-45%, diastolic dysfunction (E/e' 10), severe pulm hypertension with RVSP 63 mmHg. Patient wants to go home. If he does, recommend changing Bumetanide 2 mg PO BID, continue Aldactone 50 mg daily, Jardiance 10 mg daily, Mag Ox 400 mg BID. Give KCl 40 meq PO x 1 now. His regular instrument repairer steam plant is Dr. Caban at [facility] who he sees regularly. Have him f/u with him in next 1 week and to monitor electrolytes. (2) A-fib: Code(s): I48.91 - Unspecified atrial fibrillation Status: Acute Assessment and Plan: Paroxysmal Atrial fib/flutter. In atrial flutter/tachycardia with normal rate currently. Not on anticoagulation due to history of severe PUD bleed and he refuses anticoagulation since. (3) Hypertension: Code(s): I10 - Essential (primary) hypertension Status: Chronic Assessment and Plan: Stable. (4) CAD (coronary artery disease): Code(s): I25.10 - Atherosclerotic heart disease of [place] coronary artery without angina pectoris Status: Acute Assessment and Plan: Stable. (5) Liver cirrhosis: Code(s): K74.60 - Unspecified cirrhosis of liver Status: Acute Assessment and Plan: Noted on RUQ US. This could be contributing to diastolic dysfunction with ascites, scrotal swelling and edema of legs. Increased Aldactone 50 mg daily. Monitor Potassium and renal function. Subjective Date/time seen: 12/22/21 09:04 Interval history: Denies chest pain or sob. Reports pain in right leg and from scrotal swelling. Exam Const: General: cooperative, healthy appearing and comfortable Nutritional Appearance: obese Resp: Auscultation: no crackles, no rales, no rhonchi, no wheezes and diminished lung sounds Cardio: Jugular venous distension: no JVD Rate: regular rate Rhythm: abnormal rhythm Heart sounds: no murmurs Peripheral pulses: dorsalis pedis present GI: GI Palp: No abdominal tenderness and Yes Soft to palpation : Scrotum: scrotal swelling Neuro: General: oriented to person, oriented to place and oriented to time Extrem: Right lower extremity: edema Left lower extremity: no edema Other: Mild edema of right leg with erythema. Objective Data Vital Signs Vital Signs: Vital Signs - 24 hr 12/21/21 12:16 12/21/21 12:00 12/21/21 16:00 Temperature 97.9 F Pulse Rate 71 72 73 Respiratory Rate 22 H Blood Pressure 95/49 L Pulse Oximetry 93 Oxygen Delivery Oxygen Flow Rate 12/21/21 16:23 12/21/21 17:09 12/21/21 21:13 Temperature 98.4 F 97.0 F L 97.5 F L Pulse Rate 76 75 75 Respiratory Rate 22 H 18 14 Blood Pressure 132/52 L 120/55 L 136/71 Pulse Oximetry 99 91 98 Oxygen Delivery Oxygen Flow Rate 12/21/21 20:00 12/21/21 23:30 12/21/21 20:00 Temperature Pulse Rate 78 68 Respiratory Rate Blood Pressure Pulse Oximetry 98 94 Oxygen Delivery Nasal Cannula Oxygen Flow Rate 3.5 12/22/21 00:00 12/22/21 04:00 12/22/21 06:00 Temperature 98.0 F Pulse Rate 75 73 73 Respiratory Rate 14 Blood Pressure 130/61 Pulse Oximetry 92 Oxygen Delivery Oxygen Flow Rate Intake/Output Intake/Output: Intake & Output 12/19/21 12/20/21 12/21/21 12/22/21 23:59 23:59 23:59 23:59 Intake Total 1540 1460 1240 950 Output Total 3040 3575 5350 1700 Balance -1500 -2115 -4110 -750 Meds/Results Medications: Active Medications Generic Name Dose Route Start Last Admin Trade Name Freq PRN Reason Stop Dose Admin Acetaminophen 650 mg 12/17/21 15:02 12/22/21 00:53 Acetaminophen 325 Mg Tablet PO 650 mg Q6H PRN Administration Mild Pain (1
[2021-12-22] MEDS: EMPAGLIFLOZIN 10 MG TABLET PO (09:07)
[2021-12-22] MEDS: BUMETANIDE INJ 1 MG/4 ML VIAL IV PUSH ×2 (09:07→16:40)
[2021-12-22] MEDS: SPIRONOLACTONE 25 MG TABLET 50 MG PO (09:07)
[2021-12-22] MEDS: MAGNESIUM OXIDE 400 MG TABLET PO ×2 (09:07→16:40)
[2021-12-22] MEDS: polyethylene glycoL 3350 17 GM POWD.PACK PO (09:07)
[2021-12-22] MEDS: POTASSIUM CHLORIDE 20 MEQ TABLET 40 MEQ PO (09:08)
[2021-12-22] MEDS: PREGABALIN (*CRX) 75 MG CAPSULE PO ×2 (09:13→20:22)
[2021-12-22 11:53] LABS: Glucose Point of Care 189 mg/dl (65-105)
--- NOTE | 2021-12-22 12:02 | PM.IMPN ---
Progress Note: A&P Assessment and Plan (1) Acute on chronic congestive heart failure: Code(s): I50.9 - Heart failure, unspecified Status: Acute Assessment and Plan: Patient with extensive mostly flank and scrotal edema but also noted with some pedal edema. CXR showing diffuse bilateral airspace dz and BNP 18K. Started on Bumex IV. Unclear why he decompensated. No proteinuria to think this is nephrotic syndrome. PT elevated but albumin and LFTs okay making cirrhosis less likely.? RUQ reveals cirrhosis of liver.? Echo in June showing EF 50-55% with Grade III diastolic dysfunction and severe pHTN.? He probably has severe right sided failure. Continue Bumex. Daily weights CHF teaching.? Cardiology following Echo 12/17/2021: EF 45-50% diastolic dysfunction severe pulmonary hypertension with RVSP 63 mm Hg Started on Jardiance 10 mg daily Diuresing well. On spironolactone 50 daily Received Zaroxolyn 2.5 mg 12/20/2021 Increase spironolactone to 50 b.i.d. (2) Acute and chronic respiratory failure with hypoxia: Code(s): J96.21 - Acute and chronic respiratory failure with hypoxia Status: Acute Assessment and Plan: Patient with acute respiratory failure on 10 L high-flow prior to starting on BiPAP. He has been weaned to 4 L has chronic respiratory failure at 3 at home. Continue to wean oxygen as tolerated. (3) Cellulitis of right leg: Code(s): L03.115 - Cellulitis of right lower limb Status: Acute Assessment and Plan: It looks like he is developing cellulitis in the right leg and he has been started on Ancef. Switch to cephalexin and will conclude therapy today Venous duplex negative for DVT (4) Acute kidney injury: Code(s): N17.9 - Acute kidney failure, unspecified Status: Acute Assessment and Plan: Creatinine 1.0 on 11/14/2021 the creatinine 128 on admission. Possibly related to obstruction from significant scrotal edema. Dudley catheter has been inserted and is draining nicely. Renal functions improved since then and back normal. (5) Electrolyte abnormality: Code(s): E87.8 - Other disorders of electrolyte and fluid balance, not elsewhere classified Status: Acute Assessment and Plan: Sodium is a bit low, likely due to hypervolemia, and potassium is a bit high. Both should improve with diuresis. (6) Diet-controlled diabetes mellitus: Code(s): E11.9 - Type 2 diabetes mellitus without complications Status: Acute Assessment and Plan: No recent A1c. The patient blood glucose was reviewed Glucose remains mildly elevated A1c 5.8 Continue Accu-Cheks coming with sliding scale. Hypoglycemia protocol available as needed. Continue to monitor. (7) A-fib: Code(s): I48.91 - Unspecified atrial fibrillation Status: Acute Assessment and Plan: Is not on long-term anticoagulation as he has recurrent episodes of epistaxis. Not on rate-controlling agents either. Continue to monitor on telemetry (8) MALLORY (obstructive sleep apnea): Code(s): G47.33 - Obstructive sleep apnea (adult) (pediatric) Status: Acute Assessment and Plan: Fine myoclonic jerks noted at the upper extremities while he was asleep. If she did not improve while he was placed on AVAPS and was transitioned to BiPAP. He may need another sleep study (9) Liver cirrhosis: Code(s): K74.60 - Unspecified cirrhosis of liver Status: Acute Assessment and Plan: Non likely related to right heart failure/severe pulmonary hypertension. Since cardiac in origin. No prior history of alcohol use. Started Aldactone. Titrate dose as tolerated. Added albumin infusion Plan Fine myoclonic jerks noted of the upper extremities while he is asleep. ABG did not improve when he was placed on AVAPS and he was transition to BiPAP. Will need another sleep study as an outpatient basis Subjective Date/time seen: 12/22/21 12:02 In
--- NOTE | 2021-12-22 13:28 | PCPTNOTE ---
Attempted to see patient for Physical Therapy treatment. When asked how he was, patient stated not too good this afternoon. Patient reported he doesn't feel up for therapy this afternoon due to pain. Pt stated he had just received pain medication, but was still having a lot of pain at this time. Pt agreeable to therapy coming tomorrow. Continue with frequency per PT POC.
[2021-12-22 16:26] LABS: Glucose Point of Care 225 mg/dl (65-105)
[2021-12-22] MEDS: INSULIN ASPART (*BKC) 100 UNITS/ML SUB-Q (16:37)
[2021-12-22] MEDS: SPIRONOLACTONE 50 MG TABLET PO (16:41)
[2021-12-22] MEDS: DONEPEZIL HCL 5 MG TABLET PO (20:20)
[2021-12-22] MEDS: FLUTICASONE PROPIONATE 0.05% NA SPR 16 GM BTL (*BKC) 1 SPRAY NASAL (20:20)
[2021-12-22] MEDS: TAMSULOSIN HCL 0.4 MG CAPSULE PO (20:20)
[2021-12-23] VITALS (13 sets, daily range): BP systolic 105–133; BP diastolic 44–65; PULSE 55–80; RESP 14–23; TEMP 36.2–36.8; O2SAT 90–100
[2021-12-23] MEDS: ALBUMIN HUMAN 25% 25 GM/100 ML 100 ML IVPB ×4 (01:01→16:59)
[2021-12-23] MEDS: HYDROcodone/acetaminophen (*CRX) 5-325 MG TABLET 1 TAB PO ×4 (02:42→22:17)
[2021-12-23 06:13] LABS: Basophils Percent Auto 0.2 % (0.2-1.2); Eosinophils Absolute Auto 0.2 K/mm3 (0-0.3); Hematocrit 27.8 % (42.0-52.0); Hemoglobin 7.6 g/dL (14.0-18.0); Immature Granulocyte Absolute 0.02 K/mm3 (0.00-0.031); Immature Granulocyte Percent A 0.4 % (0-0.5); Immature Platelet Fraction Pct 12.7 % (0.9-11.2); Lymphocytes Absolute Auto 0.42 K/mm3 (0.9-3.2); Lymphocytes Percent Auto 9.3 % (18.3-44.2); Mean Corpuscular HGB Conc 27.3 g/dl (32-36); Mean Corpuscular Volume 84.2 fl (80-100); Monocytes Absolute Auto 0.6 K/mm3 (0.1-0.6); Monocytes Percent Auto 13.7 % (2.6-8.5); Neutrophils Absolute Auto 3.3 K/mm3 (1.3-6.7); Neutrophils Percent Auto 72.4 % (45.5-73.1); Platelet Count Result 86 k/mm3 (150-375); Red Cell Distribution Width 19.1 % (11.5-14.5); White Blood Count 4.5 K/mm3 (4.5-10.0)
[2021-12-23 06:25] LABS: Alanine Aminotransferase 8 U/L (6-50); Albumin Level 3.9 g/dL (3.5-5.1); Alkaline Phosphatase 101 U/L (38-126); Anion Gap 11 mmol/L (8-16); Aspartate Amino Transferase 19 U/L (17-59); Bilirubin,Total 0.7 mg/dL (0.2-1.3); Blood Urea Nitrogen 23 mg/dL (9-20); Calcium 8.2 mg/dL (8.4-10.2); Carbon Dioxide 38 mmol/L (22-30); Chloride 90 mmol/L (98-107); Estimated CRCL calculation 63 ml/min; Estimated Glomerular Filt Rate > 60; Glucose 135 mg/dL (65-110); Magnesium 1.7 mg/dL (1.6-2.3); Potassium 3.4 mmol/L (3.4-5.0); Sodium 139 mmol/L (137-145)
[2021-12-23] MEDS: ACETAMINOPHEN 325 MG TABLET 650 MG PO ×2 (06:30→12:00)
[2021-12-23 07:09] LABS: Hypochromasia 1+ (NORMAL); Poikilocytosis 1+ (NORMAL)
[2021-12-23 07:10] LABS: Anisocytosis 1+ (NORMAL); Ovalocytes 1+ (NORMAL); Schistocytes None Seen (NORMAL)
[2021-12-23 07:42] LABS: Glucose Point of Care 135 mg/dl (65-105)
--- NOTE | 2021-12-23 08:03 | PM.PNCARD ---
Progress Note: A&P Assessment and Plan (1) Acute on chronic diastolic (congestive) heart failure: Code(s): I50.33 - Acute on chronic diastolic (congestive) heart failure Status: Acute Assessment and Plan: Continue with Bumetanide 1 mg IV BID. Monitor electrolytes. Magox 400 mg BID. Started Jardiance 10 mg daily. 12/17/21 Echo: EF 45-45%, diastolic dysfunction (E/e' 10), severe pulm hypertension with RVSP 63 mmHg. Patient wants to go home. If he does, recommend changing Bumetanide 2 mg PO BID, Aldactone 50 mg BID, Jardiance 10 mg daily, Mag Ox 400 mg BID. Give KCl 40 meq PO x 1 now. His regular orthotist prosthetist is Dr. Cbaan at [facility] who he sees regularly. Have him f/u with him in next 1 week and to monitor electrolytes. (2) A-fib: Code(s): I48.91 - Unspecified atrial fibrillation Status: Acute Assessment and Plan: Paroxysmal Atrial fib/flutter. In atrial flutter/tachycardia with normal rate currently. Not on anticoagulation due to history of severe PUD bleed and he refuses anticoagulation since. (3) Hypertension: Code(s): I10 - Essential (primary) hypertension Status: Chronic Assessment and Plan: Stable. (4) CAD (coronary artery disease): Code(s): I25.10 - Atherosclerotic heart disease of [place] coronary artery without angina pectoris Status: Acute Assessment and Plan: Stable. (5) Liver cirrhosis: Code(s): K74.60 - Unspecified cirrhosis of liver Status: Acute Assessment and Plan: Noted on RUQ US. This could be contributing to diastolic dysfunction with ascites, scrotal swelling and edema of legs. Increased Aldactone 50 mg daily. Monitor Potassium and renal function. Anemia with Hb 7.6 today. Monitor and consider PRBC transfusion. Subjective Date/time seen: 12/23/21 08:03 Interval history: Denies chest pain or sob. Reports pain in right leg and from scrotal swelling. Exam Const: General: cooperative, healthy appearing and comfortable Nutritional Appearance: obese Resp: Auscultation: no crackles, no rales, no rhonchi, no wheezes and diminished lung sounds Cardio: Jugular venous distension: no JVD Rate: regular rate Rhythm: abnormal rhythm Heart sounds: no murmurs Peripheral pulses: dorsalis pedis present GI: GI Palp: No abdominal tenderness and Yes Soft to palpation : Scrotum: scrotal swelling Neuro: General: oriented to person, oriented to place and oriented to time Extrem: Right lower extremity: no edema Left lower extremity: no edema Other: Erythema of right leg. Objective Data Vital Signs Vital Signs: Vital Signs - 24 hr 12/22/21 09:10 12/22/21 12:00 12/22/21 14:00 Temperature 96.9 F L Pulse Rate 74 68 Respiratory Rate 20 Blood Pressure 118/62 Pulse Oximetry 98 100 Oxygen Delivery Nasal Cannula Oxygen Flow Rate 3 Fraction of Inspired Oxygen 12/22/21 16:00 12/22/21 20:00 12/22/21 22:00 Temperature 97.6 F Pulse Rate 72 72 65 Respiratory Rate 20 24 H Blood Pressure 119/60 Pulse Oximetry 100 100 Oxygen Delivery Nasal Cannula Oxygen Flow Rate 3 Fraction of Inspired Oxygen 35 12/23/21 00:06 12/23/21 00:13 12/22/21 20:00 Temperature Pulse Rate 77 60 Respiratory Rate Blood Pressure Pulse Oximetry 95 93 Oxygen Delivery Nasal Cannula Oxygen Flow Rate 4 Fraction of Inspired Oxygen 12/23/21 00:00 12/23/21 04:00 12/23/21 05:39 Temperature 98.2 F Pulse Rate 55 L 75 71 Respiratory Rate 18 Blood Pressure 123/65 Pulse Oximetry 90 Oxygen Delivery Oxygen Flow Rate Fraction of Inspired Oxygen 12/23/21 04:10 Temperature Pulse Rate 70 Respiratory Rate Blood Pressure Pulse Oximetry 94 Oxygen Delivery Oxygen Flow Rate Fraction of Inspired Oxygen Intake/Output Intake/Output: Intake & Output 12/20/21 12/21/21 12/22/21 12/23/21 23:59 23:59 23:59 23:59 Intake Total 1460 1240 3310 100 Output Total
[2021-12-23] MEDS: polyethylene glycoL 3350 17 GM POWD.PACK PO (08:07)
[2021-12-23] MEDS: PREGABALIN (*CRX) 75 MG CAPSULE PO ×2 (08:08→20:38)
[2021-12-23] MEDS: SPIRONOLACTONE 50 MG TABLET PO ×2 (08:08→16:52)
[2021-12-23] MEDS: EMPAGLIFLOZIN 10 MG TABLET PO (08:08)
[2021-12-23] MEDS: MAGNESIUM OXIDE 400 MG TABLET PO ×2 (08:08→16:51)
[2021-12-23] MEDS: FLUTICASONE PROPIONATE 0.05% NA SPR 16 GM BTL (*BKC) 1 SPRAY NASAL ×2 (08:09→20:42)
[2021-12-23] MEDS: BUMETANIDE INJ 1 MG/4 ML VIAL IV PUSH ×2 (08:09→16:51)
[2021-12-23] MEDS: POTASSIUM CHLORIDE 20 MEQ TABLET 40 MEQ PO (08:18)
--- NOTE | 2021-12-23 11:01 | PCNWS ---
Weekly nutritional screen. Patient is tolerating current diet with adequate intake. No weight loss reported. No nutritional needs at this time.
[2021-12-23] MEDS: INSULIN ASPART (*BKC) 100 UNITS/ML SUB-Q ×2 (11:30→16:53)
--- NOTE | 2021-12-23 15:13 | PM.IMPN ---
Progress Note: A&P Assessment and Plan (1) Acute on chronic congestive heart failure: Code(s): I50.9 - Heart failure, unspecified Status: Acute Assessment and Plan: Patient with extensive mostly flank and scrotal edema but also noted with some pedal edema. CXR showing diffuse bilateral airspace dz and BNP 18K. Started on Bumex IV. Unclear why he decompensated. No proteinuria to think this is nephrotic syndrome. PT elevated but albumin and LFTs okay making cirrhosis less likely.? RUQ reveals cirrhosis of liver.? Echo in June showing EF 50-55% with Grade III diastolic dysfunction and severe pHTN.? He probably has severe right sided failure. Continue Bumex. Daily weights CHF teaching.? Cardiology following Echo 12/17/2021: EF 45-50% diastolic dysfunction severe pulmonary hypertension with RVSP 63 mm Hg Started on Jardiance 10 mg daily Diuresing well. On spironolactone 50 daily Received Zaroxolyn 2.5 mg 12/20/2021 spironolactone to 50 b.i.d. (2) Acute and chronic respiratory failure with hypoxia: Code(s): J96.21 - Acute and chronic respiratory failure with hypoxia Status: Acute Assessment and Plan: Patient with acute respiratory failure on 10 L high-flow prior to starting on BiPAP. He has been weaned to 4 L has chronic respiratory failure at 3 at home. Continue to wean oxygen as tolerated. (3) Cellulitis of right leg: Code(s): L03.115 - Cellulitis of right lower limb Status: Acute Assessment and Plan: It looks like he is developing cellulitis in the right leg and he has been started on Ancef. Switch to cephalexin and will conclude therapy today Venous duplex negative for DVT (4) Acute kidney injury: Code(s): N17.9 - Acute kidney failure, unspecified Status: Acute Assessment and Plan: Creatinine 1.0 on 11/14/2021 the creatinine 128 on admission. Possibly related to obstruction from significant scrotal edema. Dudley catheter has been inserted and is draining nicely. Renal functions improved since then and back normal. (5) Electrolyte abnormality: Code(s): E87.8 - Other disorders of electrolyte and fluid balance, not elsewhere classified Status: Acute Assessment and Plan: Sodium is a bit low, likely due to hypervolemia, and potassium is a bit high. Both should improve with diuresis. (6) Diet-controlled diabetes mellitus: Code(s): E11.9 - Type 2 diabetes mellitus without complications Status: Acute Assessment and Plan: No recent A1c. The patient blood glucose was reviewed Glucose remains mildly elevated A1c 5.8 Continue Accu-Cheks coming with sliding scale. Hypoglycemia protocol available as needed. Continue to monitor. (7) A-fib: Code(s): I48.91 - Unspecified atrial fibrillation Status: Acute Assessment and Plan: Is not on long-term anticoagulation as he has recurrent episodes of epistaxis. Not on rate-controlling agents either. Continue to monitor on telemetry (8) MALLORY (obstructive sleep apnea): Code(s): G47.33 - Obstructive sleep apnea (adult) (pediatric) Status: Acute Assessment and Plan: Fine myoclonic jerks noted at the upper extremities while he was asleep. If she did not improve while he was placed on AVAPS and was transitioned to BiPAP. He may need another sleep study (9) Liver cirrhosis: Code(s): K74.60 - Unspecified cirrhosis of liver Status: Acute Assessment and Plan: Non likely related to right heart failure/severe pulmonary hypertension. Since cardiac in origin. No prior history of alcohol use. Started Aldactone. Titrate dose as tolerated. Added albumin infusion Subjective Date/time seen: 12/23/21 15:13 Interval history: 81yo male with pAFib, mod pHTN, CAD, CHF and chronic respirtory failure (3L) here for LE and scrotal edema. 12/19/2021: Ongoing pain in the scrotal area. Swelling persists. Diuresing well. Denies an
[2021-12-23 16:52] LABS: Glucose Point of Care 207 mg/dl (65-105)
[2021-12-23 20:05] LABS: Glucose Point of Care 206 mg/dl (65-105)
[2021-12-23] MEDS: TAMSULOSIN HCL 0.4 MG CAPSULE PO (20:38)
[2021-12-23] MEDS: DONEPEZIL HCL 5 MG TABLET PO (20:38)
[2021-12-24] VITALS (14 sets, daily range): BP systolic 108–132; BP diastolic 50–67; PULSE 66–91; RESP 14–20; TEMP 36.2–36.6; O2SAT 92–100
[2021-12-24] MEDS: ALBUMIN HUMAN 25% 25 GM/100 ML 100 ML IVPB ×4 (00:26→17:21)
[2021-12-24] MEDS: HYDROcodone/acetaminophen (*CRX) 5-325 MG TABLET 1 TAB PO ×3 (04:51→20:31)
[2021-12-24 06:44] LABS: Alanine Aminotransferase 8 U/L (6-50); Albumin Level 4.3 g/dL (3.5-5.1); Alkaline Phosphatase 112 U/L (38-126); Anion Gap 10 mmol/L (8-16); Aspartate Amino Transferase 16 U/L (17-59); Bilirubin,Total 0.6 mg/dL (0.2-1.3); Blood Urea Nitrogen 24 mg/dL (9-20); Calcium 8.6 mg/dL (8.4-10.2); Carbon Dioxide 36 mmol/L (22-30); Chloride 93 mmol/L (98-107); Estimated CRCL calculation 63 ml/min; Estimated Glomerular Filt Rate > 60; Glucose 158 mg/dL (65-110); Magnesium 1.8 mg/dL (1.6-2.3); Potassium 3.6 mmol/L (3.4-5.0); Sodium 139 mmol/L (137-145)
[2021-12-24 06:45] LABS: Basophils Percent Auto 0.4 % (0.2-1.2); Eosinophils Absolute Auto 0.1 K/mm3 (0-0.3); Eosinophils Percent Auto 2.7 % (0-4.4); Hematocrit 27.7 % (42.0-52.0); Hemoglobin 7.6 g/dL (14.0-18.0); Immature Granulocyte Absolute 0.03 K/mm3 (0.00-0.031); Immature Granulocyte Percent A 0.6 % (0-0.5); Immature Platelet Fraction Pct 13.3 % (0.9-11.2); Lymphocytes Absolute Auto 0.49 K/mm3 (0.9-3.2); Lymphocytes Percent Auto 10.1 % (18.3-44.2); Mean Corpuscular HGB Conc 27.4 g/dl (32-36); Mean Corpuscular Hemoglobin 23.7 pg (26-34); Mean Corpuscular Volume 86.3 fl (80-100); Monocytes Absolute Auto 0.7 K/mm3 (0.1-0.6); Neutrophils Absolute Auto 3.5 K/mm3 (1.3-6.7); Neutrophils Percent Auto 72.2 % (45.5-73.1); Platelet Count Result 103 k/mm3 (150-375); Red Blood Count 3.21 M/mm3 (4.6-6.20); Red Cell Distribution Width 19.4 % (11.5-14.5); White Blood Count 4.9 K/mm3 (4.5-10.0)
--- NOTE | 2021-12-24 08:19 | PM.PNCARD ---
Progress Note: A&P Assessment and Plan (1) Acute on chronic diastolic (congestive) heart failure: Code(s): I50.33 - Acute on chronic diastolic (congestive) heart failure Status: Acute Assessment and Plan: On Bumetanide 1 mg IV BID. Monitor electrolytes. Magox 400 mg BID. Started Jardiance 10 mg daily. 12/17/21 Echo: EF 45-45%, diastolic dysfunction (E/e' 10), severe pulm hypertension with RVSP 63 mmHg. Patient wants to go home. If he does, recommend changing Bumetanide 2 mg PO BID, Aldactone 50 mg BID, Jardiance 10 mg daily, Mag Ox 400 mg BID. His regular risk professional is Dr. Caban at [facility] who he sees regularly. Have him f/u with him in next 1 week and to monitor electrolytes. (2) A-fib: Code(s): I48.91 - Unspecified atrial fibrillation Status: Acute Assessment and Plan: Paroxysmal Atrial fib/flutter. In atrial flutter/tachycardia with normal rate currently. Not on anticoagulation due to history of severe PUD bleed and he refuses anticoagulation since. (3) Hypertension: Code(s): I10 - Essential (primary) hypertension Status: Chronic Assessment and Plan: Stable. (4) CAD (coronary artery disease): Code(s): I25.10 - Atherosclerotic heart disease of [place] coronary artery without angina pectoris Status: Acute Assessment and Plan: Stable. (5) Liver cirrhosis: Code(s): K74.60 - Unspecified cirrhosis of liver Status: Acute Assessment and Plan: Noted on RUQ US. This could be contributing to diastolic dysfunction with ascites, scrotal swelling and edema of legs. Increased Aldactone 50 mg BID. Monitor Potassium and renal function. Anemia with Hb 7.6 today. Monitor and consider PRBC transfusion. Subjective Date/time seen: 12/24/21 08:19 Interval history: Denies chest pain or sob. Reports pain from scrotal swelling. Exam Const: General: cooperative, healthy appearing and comfortable Nutritional Appearance: obese Resp: Auscultation: no crackles, no rales, no rhonchi, no wheezes and diminished lung sounds Cardio: Jugular venous distension: no JVD Rate: regular rate Rhythm: abnormal rhythm Heart sounds: no murmurs Peripheral pulses: dorsalis pedis present GI: GI Palp: No abdominal tenderness and Yes Soft to palpation : Scrotum: scrotal swelling Neuro: General: oriented to person, oriented to place and oriented to time Extrem: Right lower extremity: no edema Left lower extremity: no edema Other: Erythema of right leg. Objective Data Vital Signs Vital Signs: Vital Signs - 24 hr 12/23/21 12:00 12/23/21 16:00 12/23/21 14:00 Temperature 97.2 F L Pulse Rate 74 64 60 Respiratory Rate 16 Blood Pressure 105/51 L Pulse Oximetry 99 Oxygen Delivery Oxygen Flow Rate 12/23/21 22:00 12/23/21 20:00 12/23/21 20:00 Temperature 97.8 F Pulse Rate 74 80 74 Respiratory Rate 14 14 Blood Pressure 133/44 L Pulse Oximetry 100 100 Oxygen Delivery Nasal Cannula Oxygen Flow Rate 5 12/23/21 23:42 12/24/21 00:00 12/24/21 04:00 Temperature Pulse Rate 74 66 87 Respiratory Rate 23 H Blood Pressure Pulse Oximetry 98 Oxygen Delivery Oxygen Flow Rate 12/24/21 05:58 12/24/21 08:02 Temperature 97.1 F L Pulse Rate 88 Respiratory Rate 14 Blood Pressure 108/50 L Pulse Oximetry 92 95 Oxygen Delivery Nasal Cannula Oxygen Flow Rate 3 Intake/Output Intake/Output: Intake & Output 12/21/21 12/22/21 12/23/21 12/24/21 23:59 23:59 23:59 23:59 Intake Total 1240 3310 2120 850 Output Total 5350 5150 4150 1200 Balance -4110 -1840 -2030 -350 Meds/Results Medications: Active Medications Generic Name Dose Route Start Last Admin Trade Name Freq PRN Reason Stop Dose Admin Acetaminophen 650 mg 12/17/21 15:02 12/23/21 12:00 Acetaminophen 325 Mg Tablet PO 650 mg Q6H PRN Administration Mild Pain (1-3) or Fever Hydrocodone Bitart/Acetaminophen 1 t
[2021-12-24 08:42] LABS: Glucose Point of Care 172 mg/dl (65-105)
[2021-12-24] MEDS: polyethylene glycoL 3350 17 GM POWD.PACK PO (08:49)
[2021-12-24] MEDS: SPIRONOLACTONE 50 MG TABLET PO ×2 (08:51→16:47)
[2021-12-24] MEDS: ACETAMINOPHEN 325 MG TABLET 650 MG PO ×2 (08:51→16:47)
[2021-12-24] MEDS: EMPAGLIFLOZIN 10 MG TABLET PO (08:51)
[2021-12-24] MEDS: PREGABALIN (*CRX) 75 MG CAPSULE PO ×2 (08:51→20:23)
[2021-12-24] MEDS: MAGNESIUM OXIDE 400 MG TABLET PO ×2 (08:51→16:47)
[2021-12-24] MEDS: FLUTICASONE PROPIONATE 0.05% NA SPR 16 GM BTL (*BKC) 1 SPRAY NASAL ×2 (08:52→20:24)
[2021-12-24] MEDS: BUMETANIDE INJ 1 MG/4 ML VIAL IV PUSH ×2 (08:53→16:47)
[2021-12-24 11:37] LABS: Glucose Point of Care 237 mg/dl (65-105)
[2021-12-24] MEDS: INSULIN ASPART (*BKC) 100 UNITS/ML SUB-Q ×2 (11:43→16:42)
--- NOTE | 2021-12-24 12:21 | PM.IMPN ---
Progress Note: A&P Assessment and Plan (1) Acute on chronic congestive heart failure: Code(s): I50.9 - Heart failure, unspecified Status: Acute Assessment and Plan: Patient with extensive mostly flank and scrotal edema but also noted with some pedal edema. CXR showing diffuse bilateral airspace dz and BNP 18K. Started on Bumex IV. Unclear why he decompensated. No proteinuria to think this is nephrotic syndrome. PT elevated but albumin and LFTs okay making cirrhosis less likely.? RUQ reveals cirrhosis of liver.? Echo in June showing EF 50-55% with Grade III diastolic dysfunction and severe pHTN.? He probably has severe right sided failure. Continue Bumex. Daily weights CHF teaching.? Cardiology following Echo 12/17/2021: EF 45-50% diastolic dysfunction severe pulmonary hypertension with RVSP 63 mm Hg Started on Jardiance 10 mg daily Diuresing well. On spironolactone 50 daily Received Zaroxolyn 2.5 mg 12/20/2021 spironolactone to 50 b.i.d. He is diuresing very well despite his still has findings of hypervolemia. Continue to diurese with regularly monitoring renal function (2) Acute and chronic respiratory failure with hypoxia: Code(s): J96.21 - Acute and chronic respiratory failure with hypoxia Status: Acute Assessment and Plan: Patient with acute respiratory failure on 10 L high-flow prior to starting on BiPAP. He has been weaned to 4 L has chronic respiratory failure at 3 at home. Continue to wean oxygen as tolerated. he is back to his baseline home oxygen requirement (3) Cellulitis of right leg: Code(s): L03.115 - Cellulitis of right lower limb Status: Acute Assessment and Plan: It looks like he is developing cellulitis in the right leg and he has been started on Ancef. Switch to cephalexin and completed therapy Venous duplex negative for DVT (4) Acute kidney injury: Code(s): N17.9 - Acute kidney failure, unspecified Status: Acute Assessment and Plan: Creatinine 1.0 on 11/14/2021 the creatinine 128 on admission. Possibly related to obstruction from significant scrotal edema. Dudley catheter has been inserted and is draining nicely. Renal functions improved since then and back normal. (5) Electrolyte abnormality: Code(s): E87.8 - Other disorders of electrolyte and fluid balance, not elsewhere classified Status: Acute Assessment and Plan: Sodium is a bit low, likely due to hypervolemia, and potassium is a bit high. Both should improve with diuresis. (6) Diet-controlled diabetes mellitus: Code(s): E11.9 - Type 2 diabetes mellitus without complications Status: Acute Assessment and Plan: No recent A1c. The patient blood glucose was reviewed Glucose remains mildly elevated A1c 5.8 Continue Accu-Cheks coming with sliding scale. Hypoglycemia protocol available as needed. Continue to monitor. (7) A-fib: Code(s): I48.91 - Unspecified atrial fibrillation Status: Acute Assessment and Plan: Is not on long-term anticoagulation as he has recurrent episodes of epistaxis. Not on rate-controlling agents either. Continue to monitor on telemetry (8) MALLORY (obstructive sleep apnea): Code(s): G47.33 - Obstructive sleep apnea (adult) (pediatric) Status: Acute Assessment and Plan: Fine myoclonic jerks noted at the upper extremities while he was asleep. If she did not improve while he was placed on AVAPS and was transitioned to BiPAP. He may need another sleep study (9) Liver cirrhosis: Code(s): K74.60 - Unspecified cirrhosis of liver Status: Acute Assessment and Plan: Non likely related to right heart failure/severe pulmonary hypertension. Since cardiac in origin. No prior history of alcohol use. Started Aldactone tried treated up to goal dose. Added albumin infusion (10) Chronic anemia: Code(s): D64.9 - Anemia, unspecified Status: Acute
[2021-12-24 12:51] LABS: Immature Reticulocyte Fraction 24.3 % (3.0-15.9); Reticulocyte Hemoglobin Conten 17.8 pg (28.2-35.7); Reticulocytes Absolute 0.07 B/L (32.2-175.7)
[2021-12-24 13:10] LABS: Iron 24 ug/dL (49-181)
[2021-12-24 13:20] LABS: Percent Iron Saturation 7 % (20-50)
[2021-12-24] MEDS: SODIUM CHLORIDE 0.9% IV 250 ML 30 ML IV CONT (14:14)
[2021-12-24 14:16] LABS: Folic Acid 14.5 ng/mL (2.76->20)
[2021-12-24 16:42] LABS: Glucose Point of Care 235 mg/dl (65-105)
--- NOTE | 2021-12-24 18:40 | PDONCCN ---
HPI - Date of Consult Date/Time: 12/24/21 18:40 Requesting Physician: Live Varela MD Primary Care Provider: Michael Oliver, - Consult Narrative Reason for consult: Anemia and thrombocytopenia Narrative: Zack Orellana is a 81 year old male with history of congestive heart failure, pulmonary hypertension, type 2 diabetes, coronary artery disease and atrial fibrillation came into the hospital with scrotal edema and lower extremity swelling. He complain of tiredness and fatigue. He denies any chest pain and shortness of breath. He denies any bleeding including melena hematochezia. Labs showed hemoglobin of 7.6 and platelet count of [id number]. MCV is 86.3. Creatinine was normal at 0.9 with low iron level of 24 and iron saturation of 7%. B12 was low at 295. Ultrasound of upper quadrant showed liver cirrhosis and small amount of ascites. He claims that he received some kind of injection for his anemia but not sure. He denies any other new complaints. 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 Chronic anemia Chronic pain Patient had a pain pump inserted in February 2019. Chronic respiratory failure with hypoxia, on home oxygen therapy Baseline oxygen requirement is 3 L nasal cannula. Congestive heart failure Echocardiogram February 2021: EF 55-60% (improved from prior echo of 45%) left ventricular septal wall motion abnormal related to bundle-branch block, grade 2 diastolic dysfunction, severe pulmonary hypertension with RVSP of 74, severe enlargement of the right atrium Coronary artery disease Gastroesophageal reflux disease History of bleeding peptic ulcer Hypertension Iron deficiency anemia Receives frequent iron infusions. Moderate pulmonary hypertension Estimated pulmonary arterial systolic pressure was 54 mmHg on echocardiogram dated 10/25/2020. MALLORY (obstructive sleep apnea) Paroxysmal atrial fibrillation Pseudobulbar affect Spinal stenosis Type 2 diabetes mellitus Hemoglobin A1c was 6.3% on 10/25/2020. Surgical History: Surgical History (Last Reviewed 12/20/21 @ 22:23 by Ashley Olivo PA-C) History of bilateral cataract extraction History of hernia repair Family History: Family History (Last Reviewed 12/20/21 @ 22:23 by Ashley Olivo PA-C) Father Acute myocardial infarction Sibling Acute myocardial infarction Brain aneurysm Other No problems noted. Mother Breast cancer - Social History Social History: Social History (Last Reviewed 12/20/21 @ 22:23 by Ashley Oilvo PA-C) Alcohol Use: Alcohol intake: never Substance Use: Substance use: never Substance use type: does not use Others: Spiritual care concerns: No Smoking Status: Smoking status: Former smoker Tobacco type: cigarettes Second hand tobacco smoke exposure: No Smoking Pack-years: Smoking packs per day: 3 Smoking cigarettes per day: 60.0 Years smoked: 40 Smoking pack-years: 120.00 Comments: Additional smoking assessment comments: quit 25 years ago Exam - Vital Signs Vital Signs - 24 hr 12/23/21 22:00 12/23/21 20:00 12/23/21 20:00 Temperature 36.6 C Pulse Rate 74 80 74 Respiratory Rate 14 14 Blood Pressure 133/44 L Pulse Oximetry 100 100 Oxygen Delivery Nasal Cannula Oxygen Flow Rate 5 12/23/21 23:42 12/24/21 00:00 12/24/21 04:00 Temperature Pulse Rate 74 66 87 Respiratory Rate 23 H Blood Pressure Pulse Oximetry 98 Oxygen Delivery Oxygen Flow Rate 12/24/21 05:58 12/24/21 08:02 12/24/21 08:00 Temperature 36.2 C L Pulse Rat
[2021-12-24] MEDS: CYANOCOBALAMIN INJ 1,000 MCG/ML VIAL 1000 MCG IM (18:55)
[2021-12-24] MEDS: IRON SUCROSE COMPLEX 500 MG in SODIUM CHLORIDE 0.9% IV 250 ML 78.57 MG IVPB (20:23)
[2021-12-24] MEDS: TAMSULOSIN HCL 0.4 MG CAPSULE PO (20:23)
[2021-12-24] MEDS: DONEPEZIL HCL 5 MG TABLET PO (20:23)
[2021-12-24 21:18] LABS: Glucose Point of Care 174 mg/dl (65-105)
[2021-12-25] VITALS (12 sets, daily range): BP systolic 119–138; BP diastolic 60–70; PULSE 74–100; RESP 21–24; TEMP 36.2–36.6; O2SAT 5–97
[2021-12-25] MEDS: ALBUMIN HUMAN 25% 25 GM/100 ML 100 ML IVPB ×4 (00:51→17:46)
[2021-12-25] MEDS: ONDANSETRON INJ 4 MG/2 ML VIAL IV PUSH (06:11)
[2021-12-25] MEDS: HYDROcodone/acetaminophen (*CRX) 5-325 MG TABLET 1 TAB PO ×2 (06:11→17:46)
[2021-12-25 06:25] LABS: Basophils Percent Auto 0.3 % (0.2-1.2); Eosinophils Absolute Auto 0.1 K/mm3 (0-0.3); Eosinophils Percent Auto 2.4 % (0-4.4); Hematocrit 29.7 % (42.0-52.0); Hemoglobin 8.3 g/dL (14.0-18.0); Immature Granulocyte Absolute 0.04 K/mm3 (0.00-0.031); Immature Granulocyte Percent A 0.7 % (0-0.5); Immature Platelet Fraction Pct 13.8 % (0.9-11.2); Lymphocytes Absolute Auto 0.49 K/mm3 (0.9-3.2); Lymphocytes Percent Auto 8.3 % (18.3-44.2); Mean Corpuscular HGB Conc 27.9 g/dl (32-36); Mean Corpuscular Hemoglobin 24.3 pg (26-34); Mean Corpuscular Volume 86.8 fl (80-100); Monocytes Absolute Auto 0.8 K/mm3 (0.1-0.6); Monocytes Percent Auto 12.8 % (2.6-8.5); Neutrophils Absolute Auto 4.4 K/mm3 (1.3-6.7); Neutrophils Percent Auto 75.5 % (45.5-73.1); Platelet Count Result 102 k/mm3 (150-375); Red Blood Count 3.42 M/mm3 (4.6-6.20); Red Cell Distribution Width 18.6 % (11.5-14.5); White Blood Count 5.9 K/mm3 (4.5-10.0)
[2021-12-25 06:46] LABS: Alanine Aminotransferase 9 U/L (6-50); Albumin Level 4.6 g/dL (3.5-5.1); Alkaline Phosphatase 100 U/L (38-126); Anion Gap 9 mmol/L (8-16); Aspartate Amino Transferase 27 U/L (17-59); Bilirubin,Total 1.1 mg/dL (0.2-1.3); Blood Urea Nitrogen 26 mg/dL (9-20); Calcium 8.6 mg/dL (8.4-10.2); Carbon Dioxide 34 mmol/L (22-30); Chloride 95 mmol/L (98-107); Estimated CRCL calculation 79 ml/min; Estimated Glomerular Filt Rate > 60; Glucose 137 mg/dL (65-110); Magnesium 1.8 mg/dL (1.6-2.3); Potassium 3.9 mmol/L (3.4-5.0); Sodium 138 mmol/L (137-145)
[2021-12-25 06:59] LABS: Hypochromasia 1+ (NORMAL); Platelet Estimate Decreased (Adequate)
[2021-12-25 07:00] LABS: Anisocytosis 2+ (NORMAL)
[2021-12-25 07:01] LABS: Tear Drop Cells 1+ (NORMAL)
[2021-12-25 07:06] LABS: Schistocytes None Seen (NORMAL)
--- NOTE | 2021-12-25 07:56 | PM.PNCARD ---
Progress Note: A&P Assessment and Plan (1) Acute on chronic diastolic (congestive) heart failure: Code(s): I50.33 - Acute on chronic diastolic (congestive) heart failure Status: Acute Assessment and Plan: On Bumetanide 1 mg IV BID. Monitor electrolytes. Magox 400 mg BID. Started Jardiance 10 mg daily. 12/17/21 Echo: EF 45-45%, diastolic dysfunction (E/e' 10), severe pulm hypertension with RVSP 63 mmHg. Patient wants to go home. If he does, recommend changing Bumetanide 2 mg PO BID, Aldactone 50 mg BID, Jardiance 10 mg daily, Mag Ox 400 mg BID. His regular dumpster driver is Dr. Caban at [facility] [place] who he sees regularly. Have him f/u with him in next 1 week and to monitor electrolytes. (2) A-fib: Code(s): I48.91 - Unspecified atrial fibrillation Status: Acute Assessment and Plan: Paroxysmal Atrial fib/flutter. In atrial flutter/tachycardia with normal rate currently. Not on anticoagulation due to history of severe PUD bleed and he refuses anticoagulation since. (3) Hypertension: Code(s): I10 - Essential (primary) hypertension Status: Chronic Assessment and Plan: Stable. (4) CAD (coronary artery disease): Code(s): I25.10 - Atherosclerotic heart disease of [place] coronary artery without angina pectoris Status: Acute Assessment and Plan: Stable. (5) Liver cirrhosis: Code(s): K74.60 - Unspecified cirrhosis of liver Status: Acute Assessment and Plan: Noted on RUQ US. This could be contributing to diastolic dysfunction with ascites, scrotal swelling and edema of legs. Increased Aldactone 50 mg BID. Monitor Potassium and renal function. Anemia with Hb 7.6 today. Monitor and consider PRBC transfusion. Hematology is following patient. Subjective Date/time seen: 12/25/21 07:56 Interval history: Denies chest pain or sob. Reports less scrotal swelling. Exam Const: General: cooperative, healthy appearing and comfortable Nutritional Appearance: obese Resp: Auscultation: no crackles, no rales, no rhonchi, no wheezes and diminished lung sounds Cardio: Jugular venous distension: no JVD Rate: regular rate Rhythm: abnormal rhythm Heart sounds: no murmurs Peripheral pulses: dorsalis pedis present GI: GI Palp: No abdominal tenderness and Yes Soft to palpation : Scrotum: scrotal swelling Neuro: General: oriented to person, oriented to place and oriented to time Extrem: Right lower extremity: no edema Left lower extremity: no edema Other: Erythema of right leg. Objective Data Vital Signs Vital Signs: Vital Signs - 24 hr 12/24/21 08:02 12/24/21 08:00 12/24/21 08:00 Temperature Pulse Rate 84 Respiratory Rate Blood Pressure Pulse Oximetry 95 95 Oxygen Delivery Nasal Cannula Nasal Cannula Oxygen Flow Rate 3 3 Fraction of Inspired Oxygen 12/24/21 12:00 12/24/21 14:31 12/24/21 14:00 Temperature 97.4 F L 97.4 F L Pulse Rate 91 87 87 Respiratory Rate 20 20 Blood Pressure 122/60 122/60 Pulse Oximetry 94 94 Oxygen Delivery Oxygen Flow Rate Fraction of Inspired Oxygen 12/24/21 14:46 12/24/21 15:46 12/24/21 16:00 Temperature 97.3 F L 97.2 F L Pulse Rate 83 79 84 Respiratory Rate 18 16 Blood Pressure 117/63 111/56 L Pulse Oximetry 96 98 Oxygen Delivery Oxygen Flow Rate Fraction of Inspired Oxygen 12/24/21 16:46 12/24/21 21:55 12/24/21 20:00 Temperature 97.2 F L 97.8 F Pulse Rate 88 88 82 Respiratory Rate 18 16 Blood Pressure 132/67 130/67 Pulse Oximetry 94 100 Oxygen Delivery Oxygen Flow Rate Fraction of Inspired Oxygen 12/24/21 20:00 12/25/21 01:15 12/25/21 00:00 Temperature Pulse Rate 88 86 82 Respiratory Rate 16 Blood Pressure Pulse Oximetry 100 97 Oxygen Delivery Nasal Cannula Oxygen Flow Rate 3 Fraction of Inspired Oxygen 35 12/25/21 04:00 12/25/21 06:00 Temperature 97.9 F Pulse Rate 74 100 Respiratory Rate
[2021-12-25 08:29] LABS: Glucose Point of Care 146 mg/dl (65-105)
[2021-12-25] MEDS: ENOXAPARIN 40 MG/0.4 ML SYRINGE SUB-Q (08:33)
[2021-12-25] MEDS: SPIRONOLACTONE 50 MG TABLET PO ×2 (08:33→17:43)
[2021-12-25] MEDS: EMPAGLIFLOZIN 10 MG TABLET PO (08:33)
[2021-12-25] MEDS: MECLIZINE HCL 12.5 MG TABLET PO (08:33)
[2021-12-25] MEDS: MAGNESIUM OXIDE 400 MG TABLET PO ×2 (08:33→17:43)
[2021-12-25] MEDS: polyethylene glycoL 3350 17 GM POWD.PACK PO (08:33)
[2021-12-25] MEDS: FLUTICASONE PROPIONATE 0.05% NA SPR 16 GM BTL (*BKC) 1 SPRAY NASAL ×2 (08:33→21:39)
[2021-12-25] MEDS: SALINE 0.65% NAS SOLN 44 ML BTL 1 SPRAY NASAL (08:33)
[2021-12-25] MEDS: BUMETANIDE INJ 1 MG/4 ML VIAL IV PUSH ×2 (08:34→17:43)
[2021-12-25] MEDS: PREGABALIN (*CRX) 75 MG CAPSULE PO ×2 (08:36→21:39)
[2021-12-25 11:53] LABS: Glucose Point of Care 198 mg/dl (65-105)
[2021-12-25 16:31] LABS: Glucose Point of Care 269 mg/dl (65-105)
[2021-12-25] MEDS: INSULIN ASPART (*BKC) 100 UNITS/ML SUB-Q (17:42)
--- NOTE | 2021-12-25 18:20 | PM.IMPN ---
Progress Note: A&P Assessment and Plan (1) Acute on chronic congestive heart failure: Code(s): I50.9 - Heart failure, unspecified Status: Acute Assessment and Plan: Appreciate cardiology consultation, continue IV diuresis, anticipate switching to oral diuretics tomorrow and possible discharge (2) Acute and chronic respiratory failure with hypoxia: Code(s): J96.21 - Acute and chronic respiratory failure with hypoxia Status: Acute Assessment and Plan: Patient with acute respiratory failure on 10 L high-flow prior to starting on BiPAP. He has been weaned to 4 L has chronic respiratory failure at 3L at home. Continue to wean oxygen as tolerated. (3) Cellulitis of right leg: Code(s): L03.115 - Cellulitis of right lower limb Status: Acute Assessment and Plan: Completed course of antibiotics here, resolved (4) Acute kidney injury: Code(s): N17.9 - Acute kidney failure, unspecified Status: Acute Assessment and Plan: Resolved (5) Electrolyte abnormality: Code(s): E87.8 - Other disorders of electrolyte and fluid balance, not elsewhere classified Status: Acute Assessment and Plan: Resolved (6) Diet-controlled diabetes mellitus: Code(s): E11.9 - Type 2 diabetes mellitus without complications Status: Acute Assessment and Plan: A1c 5.8 Continue Accu-Cheks coming with sliding scale. Hypoglycemia protocol available as needed. Continue to monitor. (7) A-fib: Code(s): I48.91 - Unspecified atrial fibrillation Status: Acute Assessment and Plan: Is not on long-term anticoagulation as he has recurrent episodes of epistaxis. Not on rate-controlling agents either. Continue to monitor on telemetry (8) MALLORY (obstructive sleep apnea): Code(s): G47.33 - Obstructive sleep apnea (adult) (pediatric) Status: Acute Assessment and Plan: Would recommend outpatient sleep study (9) Liver cirrhosis: Code(s): K74.60 - Unspecified cirrhosis of liver Status: Acute Assessment and Plan: Unsure of etiology, continue Bumex and Aldactone (10) Chronic anemia: Code(s): D64.9 - Anemia, unspecified Status: Acute Assessment and Plan: Appreciate hematology/oncology consultation Anemia likely secondary to iron deficiency as well as B12 deficiency with accompanied thrombocytopenia secondary to cirrhosis Started on IV iron infusions as well as B12 injections per oncology/hematology Will discharge on oral ferrous sulfate 325 mg twice daily and follow-up with Hematology/Oncology as an outpatient Plan DVT prophylaxis with SCDs GI prophylaxis not indicated Code status full code Subjective Date/time seen: 12/25/21 18:20 Interval history: No overnight events noted. No chest pain or shortness of breath. No nausea, vomiting or diarrhea. No fevers or chills. Patient is eager to go home. Review of Systems Review of Systems: 12 point review of systems was assessed and was negative except as noted in the HPI Exam Narrative: General: No acute distress, alert and oriented per baseline HEENT: Atraumatic, normocephalic, mucous membranes moist CV: Regular rate and rhythm, S1, S2 Lungs: Clear to auscultation bilaterally, no rales or crackles noted, no wheezes, good air entry Abdomen: Soft, nontender, nondistended Extremities: Trace nonpitting edema bilateral lower extremities, minimal erythema of right lower extremity, no warmth, tenderness or fluctuance/purulence Psych: Euthymic, normal affect Objective Data Vital Signs Vital Signs: Vital Signs - 24 hr 12/24/21 21:55 12/24/21 20:00 12/24/21 20:00 Temperature 97.8 F Pulse Rate 88 82 88 Respiratory Rate 16 16 Blood Pressure 130/67 Pulse Oximetry 100 100 Oxygen Delivery Nasal Cannula Oxygen Flow Rate 3 Fraction of Inspired Oxygen 35 12/25/21 01:15 12/25/21 00:00 12/25/21 04:00 Domo
[2021-12-25] MEDS: DONEPEZIL HCL 5 MG TABLET PO (21:38)
[2021-12-25] MEDS: TAMSULOSIN HCL 0.4 MG CAPSULE PO (21:38)
[2021-12-26] VITALS (8 sets, daily range): BP systolic 113–137; BP diastolic 62–74; PULSE 71–97; RESP 16–20; TEMP 36.1–36.7; O2SAT 94–98
[2021-12-26] MEDS: ALBUMIN HUMAN 25% 25 GM/100 ML 100 ML IVPB ×3 (00:02→12:36)
[2021-12-26] MEDS: HYDROcodone/acetaminophen (*CRX) 5-325 MG TABLET 1 TAB PO ×3 (00:14→13:41)
[2021-12-26 07:14] LABS: Basophils Percent Auto 0.3 % (0.2-1.2); Eosinophils Absolute Auto 0.1 K/mm3 (0-0.3); Eosinophils Percent Auto 1.5 % (0-4.4); Hematocrit 30.3 % (42.0-52.0); Hemoglobin 8.3 g/dL (14.0-18.0); Immature Granulocyte Absolute 0.04 K/mm3 (0.00-0.031); Immature Granulocyte Percent A 0.6 % (0-0.5); Lymphocytes Absolute Auto 0.37 K/mm3 (0.9-3.2); Lymphocytes Percent Auto 5.5 % (18.3-44.2); Mean Corpuscular HGB Conc 27.4 g/dl (32-36); Mean Corpuscular Hemoglobin 24.1 pg (26-34); Mean Corpuscular Volume 88.1 fl (80-100); Mean Platelet Volume 13.4 fl (7.4-10.4); Monocytes Absolute Auto 0.7 K/mm3 (0.1-0.6); Monocytes Percent Auto 10.1 % (2.6-8.5); Neutrophils Absolute Auto 5.5 K/mm3 (1.3-6.7); Platelet Count Result 112 k/mm3 (150-375); Red Blood Count 3.44 M/mm3 (4.6-6.20); Red Cell Distribution Width 19.2 % (11.5-14.5); White Blood Count 6.7 K/mm3 (4.5-10.0)
[2021-12-26 07:32] LABS: Alanine Aminotransferase 10 U/L (6-50); Albumin Level 4.6 g/dL (3.5-5.1); Alkaline Phosphatase 123 U/L (38-126); Anion Gap 10 mmol/L (8-16); Aspartate Amino Transferase 19 U/L (17-59); Blood Urea Nitrogen 25 mg/dL (9-20); Calcium 8.9 mg/dL (8.4-10.2); Carbon Dioxide 37 mmol/L (22-30); Chloride 92 mmol/L (98-107); Estimated CRCL calculation 51 ml/min; Estimated Glomerular Filt Rate > 60; Glucose 172 mg/dL (65-110); Potassium 4.1 mmol/L (3.4-5.0); Sodium 139 mmol/L (137-145)
[2021-12-26 07:42] LABS: Anisocytosis 1+ (NORMAL); Hypochromasia 1+ (NORMAL); Macrocytosis 1+ (NORMAL); Ovalocytes 1+ (NORMAL); Target Cells 1+ (NORMAL)
[2021-12-26 07:49] LABS: Schistocytes None Seen (NORMAL)
--- NOTE | 2021-12-26 07:59 | PM.PNCARD ---
Progress Note: A&P Assessment and Plan (1) Acute on chronic diastolic (congestive) heart failure: Code(s): I50.33 - Acute on chronic diastolic (congestive) heart failure Status: Acute Assessment and Plan: On Bumetanide 1 mg IV BID. Monitor electrolytes. Magox 400 mg BID. Started Jardiance 10 mg daily. 12/17/21 Echo: EF 45-45%, diastolic dysfunction (E/e' 10), severe pulm hypertension with RVSP 63 mmHg. Patient wants to go home. If he does, recommend changing Bumetanide 2 mg PO BID, Aldactone 50 mg BID, Jardiance 10 mg daily, Mag Ox 400 mg BID. His regular science liaison is Dr. Caban at [facility], [place] who he sees regularly. Have him f/u with him next 1 week and to monitor electrolytes. (2) A-fib: Code(s): I48.91 - Unspecified atrial fibrillation Status: Acute Assessment and Plan: Paroxysmal Atrial fib/flutter. In atrial flutter/tachycardia with normal rate currently. Not on anticoagulation due to history of severe PUD bleed and he refuses anticoagulation since. (3) Hypertension: Code(s): I10 - Essential (primary) hypertension Status: Chronic Assessment and Plan: Stable. (4) CAD (coronary artery disease): Code(s): I25.10 - Atherosclerotic heart disease of [place] coronary artery without angina pectoris Status: Acute Assessment and Plan: Stable. (5) Liver cirrhosis: Code(s): K74.60 - Unspecified cirrhosis of liver Status: Acute Assessment and Plan: Noted on RUQ US. This could be contributing to diastolic dysfunction with ascites, scrotal swelling and edema of legs. Increased Aldactone 50 mg BID. Monitor Potassium and renal function. Anemia. Hematology is following patient. Subjective Date/time seen: 12/26/21 07:59 Interval history: Denies chest pain or sob. Reports less scrotal swelling. Exam Const: General: cooperative, healthy appearing and comfortable Nutritional Appearance: obese Resp: Auscultation: no crackles, no rales, no rhonchi, no wheezes and diminished lung sounds Cardio: Jugular venous distension: no JVD Rate: regular rate Rhythm: abnormal rhythm Heart sounds: no murmurs Peripheral pulses: dorsalis pedis present GI: GI Palp: No abdominal tenderness and Yes Soft to palpation : Scrotum: scrotal swelling Neuro: General: oriented to person, oriented to place and oriented to time Extrem: Right lower extremity: no edema Left lower extremity: no edema Other: Erythema of right leg. Objective Data Vital Signs Vital Signs: Vital Signs - 24 hr 12/25/21 08:47 12/25/21 08:00 12/25/21 14:00 Temperature 97.1 F L Pulse Rate 83 Respiratory Rate 22 H Blood Pressure 119/60 Pulse Oximetry 95 95 93 Oxygen Delivery Nasal Cannula Nasal Cannula Oxygen Flow Rate 4 4 Fraction of Inspired Oxygen 12/25/21 08:00 12/25/21 12:00 12/25/21 16:00 Temperature Pulse Rate 87 85 94 Respiratory Rate Blood Pressure Pulse Oximetry Oxygen Delivery Oxygen Flow Rate Fraction of Inspired Oxygen 12/25/21 20:00 12/25/21 20:00 12/25/21 23:00 Temperature Pulse Rate 90 Respiratory Rate Blood Pressure Pulse Oximetry 5 L 94 Oxygen Delivery Nasal Cannula Oxygen Flow Rate 4 Fraction of Inspired Oxygen 35 12/26/21 00:58 12/25/21 22:00 12/26/21 00:00 Temperature 97.6 F Pulse Rate 89 85 86 Respiratory Rate 19 21 H Blood Pressure 138/65 Pulse Oximetry 95 96 Oxygen Delivery Oxygen Flow Rate Fraction of Inspired Oxygen 12/26/21 04:00 12/26/21 06:00 Temperature 96.9 F L Pulse Rate 97 92 Respiratory Rate 20 Blood Pressure 137/74 Pulse Oximetry 94 Oxygen Delivery Oxygen Flow Rate Fraction of Inspired Oxygen Intake/Output Intake/Output: Intake & Output 12/23/21 12/24/21 12/25/21 12/26/21 23:59 23:59 23:59 23:59 Intake Total 2120 2450 1860 300 Output Total 4150 3050 3950 1700 Balance -2030 -600 -2090 -1400 Meds/Result
[2021-12-26] MEDS: SPIRONOLACTONE 50 MG TABLET PO ×2 (08:36→17:33)
[2021-12-26 08:37] LABS: Glucose Point of Care 165 mg/dl (65-105)
[2021-12-26] MEDS: EMPAGLIFLOZIN 10 MG TABLET PO (08:37)
[2021-12-26] MEDS: FLUTICASONE PROPIONATE 0.05% NA SPR 16 GM BTL (*BKC) 1 SPRAY NASAL (08:37)
[2021-12-26] MEDS: polyethylene glycoL 3350 17 GM POWD.PACK PO (08:37)
[2021-12-26] MEDS: ENOXAPARIN 40 MG/0.4 ML SYRINGE SUB-Q (08:37)
[2021-12-26] MEDS: BUMETANIDE INJ 1 MG/4 ML VIAL IV PUSH (08:37)
[2021-12-26] MEDS: PREGABALIN (*CRX) 75 MG CAPSULE PO (08:37)
[2021-12-26] MEDS: MAGNESIUM OXIDE 400 MG TABLET PO ×2 (08:41→17:32)
--- NOTE | 2021-12-26 09:45 | PM.IMPN ---
Progress Note: A&P Assessment and Plan (1) Acute on chronic congestive heart failure: Code(s): I50.9 - Heart failure, unspecified Status: Acute Assessment and Plan: Appreciate cardiology consultation, continue IV diuresis, anticipate switching to oral diuretics tomorrow and possible discharge (2) Acute and chronic respiratory failure with hypoxia: Code(s): J96.21 - Acute and chronic respiratory failure with hypoxia Status: Acute Assessment and Plan: Patient with acute respiratory failure on 10 L high-flow prior to starting on BiPAP. He has been weaned to 4 L has chronic respiratory failure at 3L at home. Continue to wean oxygen as tolerated. (3) Cellulitis of right leg: Code(s): L03.115 - Cellulitis of right lower limb Status: Acute Assessment and Plan: Completed course of antibiotics here, resolved (4) Acute kidney injury: Code(s): N17.9 - Acute kidney failure, unspecified Status: Acute Assessment and Plan: Resolved (5) Electrolyte abnormality: Code(s): E87.8 - Other disorders of electrolyte and fluid balance, not elsewhere classified Status: Acute Assessment and Plan: Resolved (6) Diet-controlled diabetes mellitus: Code(s): E11.9 - Type 2 diabetes mellitus without complications Status: Acute Assessment and Plan: A1c 5.8 Continue Accu-Cheks coming with sliding scale. Hypoglycemia protocol available as needed. Continue to monitor. (7) A-fib: Code(s): I48.91 - Unspecified atrial fibrillation Status: Acute Assessment and Plan: Is not on long-term anticoagulation as he has recurrent episodes of epistaxis. Not on rate-controlling agents either. Continue to monitor on telemetry (8) MALLORY (obstructive sleep apnea): Code(s): G47.33 - Obstructive sleep apnea (adult) (pediatric) Status: Acute Assessment and Plan: Would recommend outpatient sleep study (9) Liver cirrhosis: Code(s): K74.60 - Unspecified cirrhosis of liver Status: Acute Assessment and Plan: Unsure of etiology, continue Bumex and Aldactone (10) Chronic anemia: Code(s): D64.9 - Anemia, unspecified Status: Acute Assessment and Plan: Appreciate hematology/oncology consultation Anemia likely secondary to iron deficiency as well as B12 deficiency with accompanied thrombocytopenia secondary to cirrhosis Started on IV iron infusions as well as B12 injections per oncology/hematology Will discharge on oral ferrous sulfate 325 mg twice daily and follow-up with Hematology/Oncology as an outpatient Plan DVT prophylaxis with SCDs GI prophylaxis not indicated Code status full code Subjective Date/time seen: 12/26/21 09:45 Exam Narrative: General: No acute distress, alert and oriented per baseline HEENT: Atraumatic, normocephalic, mucous membranes moist CV: Regular rate and rhythm, S1, S2 Lungs: Clear to auscultation bilaterally, no rales or crackles noted, no wheezes, good air entry Abdomen: Soft, nontender, nondistended Extremities: Trace nonpitting edema bilateral lower extremities, minimal erythema of right lower extremity, no warmth, tenderness or fluctuance/purulence Psych: Euthymic, normal affect Objective Data Vital Signs Vital Signs: Vital Signs - 24 hr 12/25/21 14:00 12/25/21 12:00 12/25/21 16:00 Temperature 97.1 F L Pulse Rate 83 85 94 Respiratory Rate 22 H Blood Pressure 119/60 Pulse Oximetry 93 Oxygen Delivery Oxygen Flow Rate Fraction of Inspired Oxygen 12/25/21 20:00 12/25/21 20:00 12/25/21 23:00 Temperature Pulse Rate 90 Respiratory Rate Blood Pressure Pulse Oximetry 5 L 94 Oxygen Delivery Nasal Cannula Oxygen Flow Rate 4 Fraction of Inspired Oxygen 35 12/26/21 00:58 12/25/21 22:00 12/26/21 00:00 Temperature 97.6 F Pulse Rate 89 85 86 Respiratory Rate 19 21 H Blood Pressu
[2021-12-26 11:51] LABS: Glucose Point of Care 188 mg/dl (65-105)
[2021-12-26] MEDS: BUMETANIDE 1 MG TABLET 2 MG PO ×2 (12:36→17:33)
[2021-12-26] MEDS: IRON SUCROSE COMPLEX 500 MG in SODIUM CHLORIDE 0.9% IV 250 ML 78.57 MG IVPB (14:54)
--- NOTE | 2021-12-26 16:39 | PM.DS ---
DS: Admitting Diagnosis Discharge Date December 26, 2021 Admitting Diagnosis Scrotal edema DS: Discharge Diagnosis Discharge Diagnosis (1) Acute on chronic congestive heart failure: Code(s): I50.9 - Heart failure, unspecified Status: Acute Assessment and Plan: Appreciate cardiology consultation, continue IV diuresis, anticipate switching to oral diuretics tomorrow and possible discharge (2) Acute and chronic respiratory failure with hypoxia: Code(s): J96.21 - Acute and chronic respiratory failure with hypoxia Status: Acute Assessment and Plan: Patient with acute respiratory failure on 10 L high-flow prior to starting on BiPAP. He has been weaned to 4 L has chronic respiratory failure at 3L at home. Continue to wean oxygen as tolerated. (3) Cellulitis of right leg: Code(s): L03.115 - Cellulitis of right lower limb Status: Acute Assessment and Plan: Completed course of antibiotics here, resolved (4) Acute kidney injury: Code(s): N17.9 - Acute kidney failure, unspecified Status: Acute Assessment and Plan: Resolved (5) Electrolyte abnormality: Code(s): E87.8 - Other disorders of electrolyte and fluid balance, not elsewhere classified Status: Acute Assessment and Plan: Resolved (6) Diet-controlled diabetes mellitus: Code(s): E11.9 - Type 2 diabetes mellitus without complications Status: Acute Assessment and Plan: A1c 5.8 Continue Accu-Cheks coming with sliding scale. Hypoglycemia protocol available as needed. Continue to monitor. (7) A-fib: Code(s): I48.91 - Unspecified atrial fibrillation Status: Acute Assessment and Plan: Is not on long-term anticoagulation as he has recurrent episodes of epistaxis. Not on rate-controlling agents either. Continue to monitor on telemetry (8) MALLORY (obstructive sleep apnea): Code(s): G47.33 - Obstructive sleep apnea (adult) (pediatric) Status: Acute Assessment and Plan: Would recommend outpatient sleep study (9) Liver cirrhosis: Code(s): K74.60 - Unspecified cirrhosis of liver Status: Acute Assessment and Plan: Unsure of etiology, continue Bumex and Aldactone (10) Chronic anemia: Code(s): D64.9 - Anemia, unspecified Status: Acute Assessment and Plan: Appreciate hematology/oncology consultation Anemia likely secondary to iron deficiency as well as B12 deficiency with accompanied thrombocytopenia secondary to cirrhosis Started on IV iron infusions as well as B12 injections per oncology/hematology Will discharge on oral ferrous sulfate 325 mg twice daily and follow-up with Hematology/Oncology as an outpatient Plan DVT prophylaxis with SCDs GI prophylaxis not indicated Code status full code DS: Summary Hospital Course Hospital Course: 81-year-old male with congestive heart failure (EF as low as 45%, most recent 55 to 60%), severe pulmonary hypertension, coronary artery disease, chronic respiratory failure with hypoxia, chronic obstructive pulmonary disease, paroxysmal atrial fibrillation, type 2 diabetes mellitus, and other comorbidities who presented to the emergency department from home for evaluation of scrotal swelling. He has chronic lower extremity edema however over the last several days his edema has gotten so severe that his scrotum is swollen to the size of a grapefruit and he has had increasing dyspnea on lesser and lesser exertion. He is also having difficulties urinating given the amount of swelling in the scrotum and he is only going a small amount of time. He was hospitalized last month with CHF at which time he was started on torsemide 40 milligrams b.i.d. of which he states compliance. Workup in the ED was significant for a troponin of 0.036, proBNP 86921, BUN 76, creatinine 1.80, sodium 133, potassium 5.2. Chest x-ray showed diffuse bilateral airspace disease with peribronchial
[2021-12-26 16:53] LABS: Glucose Point of Care 261 mg/dl (65-105)
[2021-12-26] MEDS: INSULIN ASPART (*BKC) 100 UNITS/ML SUB-Q (17:33)
== END 2021-12-26 19:00 | disposition home health service (06) | DRG 291 ==
LOC: ANHED 14:03 → ANHIMU 16:44 → ANH3MEDSUR 12-21 16:55
PROVIDERS: Internal Medicine; Physician Assistant; Admitting Provider Internal Medicine; Emergency Provider General Practice; PCP Internal Medicine; Visit Provider Student in an Organized Health Care Education/Training Program
DX: I11.0 Hypertensive heart disease with heart failure (principal); I50.33 Acute on chronic diastolic (congestive) heart failure; J96.21 Acute and chronic respiratory failure with hypoxia; L03.115 Cellulitis of right lower limb; N17.9 Acute kidney failure, unspecified; I48.92 Unspecified atrial flutter; D61.818 Other pancytopenia; E87.8 Other disorders of electrolyte and fluid balance, not elsewhere classified; I27.20 Pulmonary hypertension, unspecified; I25.10 Atherosclerotic heart disease of native coronary artery without angina pectoris; K74.60 Unspecified cirrhosis of liver; D50.9 Iron deficiency anemia, unspecified; D69.59 Other secondary thrombocytopenia; E53.8 Deficiency of other specified B group vitamins; E11.9 Type 2 diabetes mellitus without complications; I48.0 Paroxysmal atrial fibrillation; I50.810 Right heart failure, unspecified; G47.33 Obstructive sleep apnea (adult) (pediatric); N40.0 Benign prostatic hyperplasia without lower urinary tract symptoms; Z20.822 Contact with and (suspected) exposure to COVID-19; G89.29 Other chronic pain; Z86.73 Personal history of transient ischemic attack (TIA), and cerebral infarction without residual deficits; Z99.81 Dependence on supplemental oxygen; Z98.42 Cataract extraction status, left eye; Z98.41 Cataract extraction status, right eye; Z87.891 Personal history of nicotine dependence; Z79.84 Long term (current) use of oral hypoglycemic drugs; G25.3 Myoclonus; I25.2 Old myocardial infarction; Z95.5 Presence of coronary angioplasty implant and graft; Z87.11 Personal history of peptic ulcer disease
CPT/HCPCS: 36415; 36430; 36600; 51702; 71045; 76705; 76870; 80053; 81003; 82375; 82607; 82728; 82746; 82805; 82948; 83036; 83050; 83540; 83550; 83735; 83880; 84100; 84443; 84484; 85025; 85027; 85046; 85055; 85610; 85730; 86850; 86900; 86901; 86920; 87040; 93005; 93306; 93970; 93976; 94002; 94003; 97110; 97161; 97165; 97530; 97535; 99285; A9270; C9803; J0456; J0690; J0696; J1120; J1650; J1756; J1815; J1940; J2405; J3420; J3475; J7050; P9016; P9047; U0003; U0005

== ENCOUNTER 2022-01-06 14:22 | Inpatient (IN) | payer MEDICARE, MEDICAID, SELFPAY ==
[2022-01-06] VITALS (11 sets, daily range): BP systolic 127–148; BP diastolic 59–87; PULSE 67–88; RESP 14–22; TEMP 36.3–36.6; O2SAT 92–100
--- NOTE | ~2022-01-06 | XR_ITS ---
XR chest 1V portable 01/06/2022 16:18 Indication: CHF. Shortness of breath. Procedure: AP portable chest Comparison: Comparison to multiple prior studies sequentially, with oldest reviewed study dated 07/10. Findings: Cardiomegaly. There is interstitial edema. Small left pleural effusion. 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 No acute osseous abnormality. Impression: 1: Cardiomegaly with interstitial edema. Reviewed, dictated and finalized at location B. Impression: 1: Cardiomegaly with interstitial edema.
--- NOTE | 2022-01-06 14:24 | ECG_ITS ---
Measurements Intervals [place] Rate: 79 P: DE: 0 QRS: 121 QRSD: 111 T: -33 QT: 390 QTc: 449 Interpretive Statements ATRIAL FLUTTER/TACHYCARDIA WITH ABERRANT CONDUCTION OR VENTRICULAR PREMATURE COMPLEXES LOW QRS VOLTAGE IN EXTREMITY LEADS LATERAL MYOCARDIAL INFARCTION, PROBABLY OLD ABNORMAL ECG COMPARED TO ECG 12/16/2021 13:33:59 ABERRANT CONDUCTION OF SUPRAVENTRICULAR BEAT(S) NOW PRESENT Electronically Signed On 01-06-2022 16:27:32 CDT by Mitch Gonzáles M.D.
--- NOTE | 2022-01-06 14:53 | ED.GENADULT ---
HPI - General Adult General Chief complaint: Shortness of Breath/Dyspnea Stated complaint: edema to abd and scrotal area, sob Time Seen by Provider: 01/06/22 14:29 History of Present Illness HPI narrative: this is an 81-year-old male with history of heart failure on 3 L nasal cannula at home. He was recently discharged from the hospital and starting 6 days ago he started to have swelling of his scrotum. The scrotum is progressed and now he is quite uncomfortable. Patient has had also had increasing oxygen requirements. He has been taking his diuretics as instructed. He denies chest pain, fever, chills, cough, abdominal pain, nausea vomiting or diarrhea. Related Data Home Medications Medication Instructions Recorded Confirmed pregabalin 75 mg capsule (Lyrica) 75 mg PO Q12H 10/24/20 12/16/21 tamsulosin 0.4 mg capsule (Flomax) 0.4 mg PO HS 10/24/20 12/16/21 donepezil 5 mg tablet (Aricept) 5 mg PO HS 11/12/21 12/16/21 lidocaine-prilocaine 2.5 %-2.5 % 1 applic PRN PRN Pain 11/12/21 12/16/21 topical cream metformin 1,000 mg tablet 1,000 mg PO DAILY 11/12/21 12/16/21 ondansetron HCl 4 mg tablet 4 mg PO TID PRN Nausea 11/12/21 12/16/21 diphenhydramine HCl 25 mg capsule 25 mg PO DAILY PRN Runny Nose 12/16/21 12/16/21 (Benadryl) meclizine 12.5 mg tablet 12.5 mg PO TID PRN Dizziness 12/16/21 12/16/21 Allergies Allergy/AdvReac Type Severity Reaction Status Date / Time No Known Allergies Allergy Verified 11/21/21 15:15 Review of Systems Review of Systems: CONSTITUTIONAL: Denies night sweats. EYES: No eye pain ENT: Denies rhinorrhea CARDIOVASCULAR: Denies palpitations RESPIRATORY: Denies hemoptysis GASTROINTESTINAL: Denies hematemesis GENITOURINARY: Denies hematuria. SKIN: Denies rash MUSCULOSKELETAL: Denies myalgia. NEUROLOGIC: Denies weakness. 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 Chronic anemia Chronic pain Patient had a pain pump inserted in February 2019. Chronic respiratory failure with hypoxia, on home oxygen therapy Baseline oxygen requirement is 3 L nasal cannula. Congestive heart failure Echocardiogram February 2021: EF 55-60% (improved from prior echo of 45%) left ventricular septal wall motion abnormal related to bundle-branch block, grade 2 diastolic dysfunction, severe pulmonary hypertension with RVSP of 74, severe enlargement of the right atrium Coronary artery disease Gastroesophageal reflux disease History of bleeding peptic ulcer Hypertension Iron deficiency anemia Receives frequent iron infusions. Moderate pulmonary hypertension Estimated pulmonary arterial systolic pressure was 54 mmHg on echocardiogram dated 10/25/2020. MALLORY (obstructive sleep apnea) Paroxysmal atrial fibrillation Pseudobulbar affect Spinal stenosis Type 2 diabetes mellitus Hemoglobin A1c was 6.3% on 10/25/2020. Surgical History Surgical History History of bilateral cataract extraction History of hernia repair Family History Family History Father Acute myocardial infarction Sibling Acute myocardial infarction Brain aneurysm Other No problems noted. Mother Breast cancer Social History Social History Social History: Healthcare power of real estate attorney: Lennie Cruz, granddaughter. Code status: Full code. Smoking packs per day: 3 Smoking cigarettes per day: 60.0 Years smoked: 40 Smoking pack-years: 120.00 Smoking status: Former smoker Tobacco type: cigarettes Second hand tobacco smoke exposure: No Additional smoking assessment comments: quit 25 years ago Alcohol intake: never Substance use: n
[2022-01-06 14:57] LABS: Basophils Percent Auto 0.6 % (0.2-1.2); Eosinophils Absolute Auto 0.1 K/mm3 (0-0.3); Eosinophils Percent Auto 2.1 % (0-4.4); Hematocrit 34.5 % (42.0-52.0); Hemoglobin 9.8 g/dL (14.0-18.0); Immature Granulocyte Absolute 0.02 K/mm3 (0.00-0.031); Immature Granulocyte Percent A 0.4 % (0-0.5); Lymphocytes Percent Auto 10.3 % (18.3-44.2); Mean Corpuscular HGB Conc 28.4 g/dl (32-36); Mean Corpuscular Hemoglobin 25.8 pg (26-34); Mean Corpuscular Volume 90.8 fl (80-100); Mean Platelet Volume 10.6 fl (7.4-10.4); Monocytes Absolute Auto 0.5 K/mm3 (0.1-0.6); Monocytes Percent Auto 11.1 % (2.6-8.5); Neutrophils Absolute Auto 3.7 K/mm3 (1.3-6.7); Neutrophils Percent Auto 75.5 % (45.5-73.1); Platelet Count Result 212 k/mm3 (150-375); Red Cell Distribution Width 25.2 % (11.5-14.5); White Blood Count 4.9 K/mm3 (4.5-10.0)
[2022-01-06] MEDS: FUROSEMIDE INJ 100 MG/10 ML VIAL 80 MG IV PUSH (15:02)
[2022-01-06 15:07] LABS: INR 1.3; Prothrombin Time 15.8 Seconds (11.1-14.7)
[2022-01-06 15:08] LABS: Partial Thromboplastin Time 33.3 SECONDS (22.3-36.8)
[2022-01-06 15:10] LABS: Alanine Aminotransferase 10 U/L (6-50); Albumin Level 4.4 g/dL (3.5-5.1); Alkaline Phosphatase 121 U/L (38-126); Anion Gap 11 mmol/L (8-16); Aspartate Amino Transferase 18 U/L (17-59); Bilirubin,Total 0.8 mg/dL (0.2-1.3); Blood Urea Nitrogen 32 mg/dL (9-20); Calcium 8.7 mg/dL (8.4-10.2); Carbon Dioxide 27 mmol/L (22-30); Chloride 99 mmol/L (98-107); Estimated CRCL calculation 57 ml/min; Estimated Glomerular Filt Rate > 60; Glucose 155 mg/dL (65-110); Potassium 5.7 mmol/L (3.4-5.0); Sodium 137 mmol/L (137-145)
[2022-01-06 15:15] LABS: Anisocytosis 3+ (NORMAL); Hypochromasia 1+ (NORMAL); Platelet Estimate Adequate (Adequate)
[2022-01-06 15:17] LABS: Schistocytes None Seen (NORMAL)
[2022-01-06] MEDS: HYDROmorphone HCL INJ (*CRX) 1 MG/ML SYR 0.5 MG IV PUSH (15:17)
[2022-01-06 15:22] LABS: NT Pro B Type Natriuretic Pept 10900 pg/mL (5-100); Troponin I 0.015 ng/mL (0.000-0.034)
[2022-01-06] MEDS: INSULIN HUMAN REGULAR (*BKC) 100 UNITS/ML 10 UNITS IV PUSH (16:05)
[2022-01-06] MEDS: SODIUM ZIRCONIUM CYCLOSILICATE 10 GM POWD.PACK PO (16:05)
[2022-01-06] MEDS: DEXTROSE 50% 25 GM/50 ML SYRINGE IV PUSH (16:05)
--- NOTE | 2022-01-06 16:30 | PM.IMHP ---
H&P: HPI History of Present Illness Date/Time: 01/06/22 16:30 <Ashley Olivo PA-C - Last Filed: 01/06/22 23:16> Chief Complaint: Significant scrotal swelling. <Ashley Olivo PA-C - Last Filed: 01/06/22 23:16> Narrative: This is a very pleasant 81-year-old male with congestive heart failure, severe pulmonary hypertension, coronary artery disease, chronic respiratory failure with hypoxia, chronic obstructive pulmonary disease, paroxysmal atrial fibrillation, type 2 diabetes mellitus, and other comorbidities who presented to the emergency department from home for evaluation of scrotal swelling. He has chronic pitting edema up to the flanks and including the scrotum and he has been hospitalized several times for aggressive diuresis. In fact he was discharged from the hospital little over a week and a half ago. His Bumex dose was increased to 2 milligrams b.i.d. and he states compliance with though unfortunately he has once again started to gain gain weight and he reports ever increasing scrotal edema to the point where he is having difficulties urinating. He also has quite a bit of comfort in the scrotum and has difficulties finding a good position where it does not hurt while sitting down. At the time my evaluation his scrotum is noted to be much larger than it was when I admitted him to the hospital several weeks ago. Due to his significant swelling a Dudley catheter was inserted in the ER and he is being admitted for diuresis. He has no specific complaints at this time and he denies chest pain and shortness of breath. <Ashley Olivo PA-C - Last Filed: 01/06/22 23:16> Review of Systems Review of Systems: Twelve systems were reviewed. He has gained weight since his most recent discharge, not sure how much however. He has a slight, nonproductive cough. Appetite has been okay. He has however been getting nauseated about an hour after eating though he has a prescription for Zofran which seems to help. No chest pain or pleuritic pain. He denies significant orthopnea. Except as documented, all other systems were reviewed and are negative. 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 Chronic anemia Chronic pain Patient had a pain pump inserted in February 2019. Chronic respiratory failure with hypoxia, on home oxygen therapy Baseline oxygen requirement is 3 L nasal cannula. Congestive heart failure Echocardiogram February 2021: EF 55-60% (improved from prior echo of 45%) left ventricular septal wall motion abnormal related to bundle-branch block, grade 2 diastolic dysfunction, severe pulmonary hypertension with RVSP of 74, severe enlargement of the right atrium Coronary artery disease Gastroesophageal reflux disease History of bleeding peptic ulcer Hypertension Iron deficiency anemia Receives frequent iron infusions. Moderate pulmonary hypertension Estimated pulmonary arterial systolic pressure was 54 mmHg on echocardiogram dated 10/25/2020. Obstructive sleep apnea Paroxysmal atrial fibrillation Pseudobulbar affect Spinal stenosis Type 2 diabetes mellitus Hemoglobin A1c was 6.3% on 10/25/2020. <Ashley Olivo PA-C - Last Filed: 01/06/22 23:16> Surgical History Surgical History: Surgical History (System 01/10/22 @ 16:10 by Dael Mobley) History of bilateral cataract extraction History of hernia repair <Ashley Olivo PA-C - Last Filed: 01/06/22 23:16> Family History Family History: Family History Father Acute myocardial infarction Sibling Acute myocardial infarction Brain aneurysm Other No problems noted. Mother Breast cancer <Celestine
[2022-01-06 17:57] LABS: Glucose Point of Care 65 mg/dl (65-105)
--- NOTE | 2022-01-06 18:01 | PC.NURSE ---
Pt BS 65, per Hospitalist at bedside, give orange juice and send to floor where dinner tray is waiting. Pt is alert and upright.
--- NOTE | 2022-01-06 18:10 | PC.NURSE ---
This patient, Zack Orellana, was admitted to 3 Med Surg Room 307-01. Patient/family oriented to hospital policies and general routines including ID bracelet, bed and alarms, visiting hours, pain management, procedures, bathroom and other care routines, personal items, smoking policy, room service/diet, and visiting hours.Report from ER nurse. Information on how to activate the Rapid Response Team has been discussed. Patient/Family are encouraged to report perceived risks to care and to ask questions if they do not understand what they are told or what they should do.
[2022-01-06 21:44] LABS: Anion Gap 9 mmol/L (8-16); Blood Urea Nitrogen 31 mg/dL (9-20); Calcium 8.5 mg/dL (8.4-10.2); Carbon Dioxide 31 mmol/L (22-30); Chloride 96 mmol/L (98-107); Estimated CRCL calculation 57 ml/min; Estimated Glomerular Filt Rate > 60; Glucose 112 mg/dL (65-110); Potassium 5.4 mmol/L (3.4-5.0); Sodium 136 mmol/L (137-145)
[2022-01-06 22:11] LABS: Glucose Point of Care 139 mg/dl (65-105)
[2022-01-06] MEDS: PREGABALIN (*CRX) 75 MG CAPSULE PO (22:58)
[2022-01-06] MEDS: DONEPEZIL HCL 5 MG TABLET PO (22:58)
[2022-01-06] MEDS: BUMETANIDE INJ 1 MG/4 ML VIAL IV PUSH (23:01)
--- NOTE | 2022-01-06 23:42 | PC.NURSE ---
Pt has generalized swelling. Pt states he was here 10 days ago. Pt wants to use home BiPAP machine. Machine was inspected and Respiratory came up and got pt placed on machine. Pt is now resting comfortably. Pt has no complaints at this time. Pt participated and contributed in plan of care for the shift. Will continue to monitor pt.
[2022-01-07] VITALS (12 sets, daily range): BP systolic 126–144; BP diastolic 65–78; PULSE 65–83; RESP 16–20; TEMP 36.2–36.4; O2SAT 90–98
[2022-01-07] MEDS: HYDROmorphone HCL INJ (*CRX) 1 MG/ML SYR IV PUSH (01:48)
[2022-01-07 08:11] LABS: Hematocrit 32.8 % (42.0-52.0); Hemoglobin 9.3 g/dL (14.0-18.0); Mean Corpuscular HGB Conc 28.4 g/dl (32-36); Mean Corpuscular Hemoglobin 25.9 pg (26-34); Mean Corpuscular Volume 91.4 fl (80-100); Platelet Count Result 213 k/mm3 (150-375); Red Blood Count 3.59 M/mm3 (4.6-6.20); White Blood Count 6.2 K/mm3 (4.5-10.0)
[2022-01-07 08:26] LABS: Alanine Aminotransferase 8 U/L (6-50); Albumin Level 4.1 g/dL (3.5-5.1); Alkaline Phosphatase 116 U/L (38-126); Anion Gap 9 mmol/L (8-16); Aspartate Amino Transferase 16 U/L (17-59); Bilirubin,Total 0.8 mg/dL (0.2-1.3); Blood Urea Nitrogen 28 mg/dL (9-20); Calcium 8.5 mg/dL (8.4-10.2); Carbon Dioxide 31 mmol/L (22-30); Chloride 96 mmol/L (98-107); Estimated CRCL calculation 57 ml/min; Estimated Glomerular Filt Rate > 60; Glucose 106 mg/dL (65-110); Magnesium 1.7 mg/dL (1.6-2.3); Phosphorus 3.2 mg/dL (2.5-4.5); Potassium 4.6 mmol/L (3.4-5.0); Sodium 136 mmol/L (137-145)
[2022-01-07] MEDS: PREGABALIN (*CRX) 75 MG CAPSULE PO ×2 (09:36→21:54)
[2022-01-07] MEDS: EMPAGLIFLOZIN 10 MG TABLET PO (09:36)
[2022-01-07] MEDS: FERROUS SULFATE 324 MG TABLET PO ×2 (09:36→17:01)
[2022-01-07] MEDS: TAMSULOSIN HCL 0.4 MG CAPSULE PO (09:36)
[2022-01-07] MEDS: MAGNESIUM OXIDE 400 MG TABLET PO ×2 (09:36→17:01)
--- NOTE | 2022-01-07 10:35 | PM.IMPN ---
Progress Note: A&P Assessment and Plan (1) Acute on chronic diastolic (congestive) heart failure: Code(s): I50.33 - Acute on chronic diastolic (congestive) heart failure Status: Acute Assessment and Plan: Per echo earlier this month. Combined diastolic and systolic CHF. Continue diuretic therapy. Monitor kidney function and electrolytes. Patient reports some urinary retention secondary to the edema that he had at the scrotum and lower extremities. Dudley has been placed. May need follow-up with Urology as an outpatient as the patient will likely need to be discharged with the Dudley. Will continue to monitor and see if Dudley can be discharged in the hospital. (2) Hyperkalemia: Code(s): E87.5 - Hyperkalemia Status: Acute Assessment and Plan: Improved. Monitor. (3) Obstructive sleep apnea: Code(s): G47.33 - Obstructive sleep apnea (adult) (pediatric) Status: Acute (4) Chronic respiratory failure with hypoxia, on home oxygen therapy: Code(s): J96.11 - Chronic respiratory failure with hypoxia; Z99.81 - Dependence on supplemental oxygen Status: Acute Assessment and Plan: Appears to be at baseline. Monitor respiratory status. (5) Atrial flutter: Code(s): I48.92 - Unspecified atrial flutter Status: Acute Assessment and Plan: history of Paroxysmal AFib appears to be in sinus rhythm currently. per Cardiology note earlier this month patient has a history of severe peptic ulcer disease or no anticoagulation rate controlled Subjective Date/time seen: 01/07/22 10:35 patient has no new complaints today. He reports his lower extremity edema is improved. Exam Narrative: General: Nontoxic-appearing male sitting up in bed in no distress. Weight: 102 kilograms. BMI: 35.2. HEENT: PERRL, EOMI. Sclera anicteric. Oral mucosa moist. Neck: Supple. Exam limited due to neck circumference and positioning, no significant JVD. Respiratory: Respirations are nonlabored and he is speaking in full sentences. Faint crackles at the left base. Cardiovascular: Regular rate and rhythm with S1-S2. Soft murmur at the upper sternal border. Gastrointestinal: Abdomen is obese with pitting edema at the flanks. He has large ventral hernias which are re do stable and nontender to palpation. Positive bowel sounds. Genitourinary: Scrotum is markedly edematous in his nearly the size of a cantaloupe. Skin: Warm and dry. Chronic raise, fibrotic nodules and areas of lichenification on the right miner. Extremities: No cyanosis or clubbing. Two to 3+ pitting edema to the flanks. Neurological: Alert. Cranial nerves 2-12 are grossly intact. No gross focal deficits to casual conversation. Psychiatric: Pleasant and cooperative with normal mood and affect. Judgment and insight intact. He remains in good spirits. Objective Data Vital Signs Vital Signs: Vital Signs - 24 hr 01/06/22 14:26 01/06/22 14:29 01/06/22 14:48 Temperature 97.8 F Pulse Rate 88 85 Respiratory Rate 18 Blood Pressure 132/72 Pulse Oximetry 100 97 Oxygen Delivery Nasal Cannula Nasal Cannula Oxygen Flow Rate 5 5 01/06/22 15:02 01/06/22 16:08 01/06/22 17:43 Temperature Pulse Rate 77 68 85 Respiratory Rate 18 20 20 Blood Pressure 148/87 H 130/75 127/72 Pulse Oximetry 100 97 98 Oxygen Delivery Oxygen Flow Rate 01/06/22 18:06 01/06/22 23:20 01/06/22 23:22 Temperature Pulse Rate 68 72 Respiratory Rate 18 14 Blood Pressure 135/78 Pulse Oximetry 99 98 98 Oxygen Delivery BiPAP Oxygen Flow Rate 4 01/06/22 20:01 01/06/22 20:01 01/06/22 22:00 Temperature 97.4 F L Pulse Rate 71 67 Respiratory Rate 22 H Blood Pressure 136/59 L Pulse Oximetry 98 92 Oxygen Delivery BiPAP Oxygen Flow Rate 3 01/07/22 00:03 01/07/22 04:01 01/07/22 06:00 Temperature 97.4 F L Pulse Rate 71 75 83 Respiratory Rate 20 Blood Pressure 142/76 H Pulse O
[2022-01-07] MEDS: BUMETANIDE INJ 2.5 MG/10 ML VIAL 2 MG IV PUSH ×2 (12:56→17:01)
[2022-01-07 14:11] LABS: Potassium 4.8 mmol/L (3.4-5.0)
[2022-01-07 21:11] LABS: Glucose Point of Care 138 mg/dl (65-105)
[2022-01-07] MEDS: DONEPEZIL HCL 5 MG TABLET PO (21:54)
--- NOTE | 2022-01-07 22:46 | PC.NURSE ---
Pt is resting comfortably in bed. Pt has no complaints of pain at this time. Pt did have a bowel movement and pt stated it was loose, nurse did not witness. Pt will be put on BiPAP at night. Pt states he has no needs or complaints at this time. Pt participated and contributed to plan of care. Will continue to monitor pt.
[2022-01-08] VITALS (12 sets, daily range): BP systolic 108–134; BP diastolic 47–65; PULSE 59–78; RESP 16–18; TEMP 36.2–36.7; O2SAT 94–100
[2022-01-08 07:18] LABS: Anion Gap 11 mmol/L (8-16); Blood Urea Nitrogen 20 mg/dL (9-20); Calcium 8.1 mg/dL (8.4-10.2); Carbon Dioxide 38 mmol/L (22-30); Chloride 89 mmol/L (98-107); Estimated CRCL calculation 60 ml/min; Estimated Glomerular Filt Rate > 60; Glucose 92 mg/dL (65-110); Potassium 3.9 mmol/L (3.4-5.0); Sodium 138 mmol/L (137-145)
[2022-01-08 07:19] LABS: NT Pro B Type Natriuretic Pept 10900 pg/mL (5-100)
[2022-01-08 07:52] LABS: Glucose Point of Care 110 mg/dl (65-105)
[2022-01-08] MEDS: FERROUS SULFATE 324 MG TABLET PO ×2 (09:21→18:55)
[2022-01-08] MEDS: TAMSULOSIN HCL 0.4 MG CAPSULE PO (09:21)
[2022-01-08] MEDS: BUMETANIDE INJ 2.5 MG/10 ML VIAL 2 MG IV PUSH ×2 (09:21→18:55)
[2022-01-08] MEDS: EMPAGLIFLOZIN 10 MG TABLET PO (09:21)
[2022-01-08] MEDS: MAGNESIUM OXIDE 400 MG TABLET PO ×2 (09:21→18:55)
[2022-01-08] MEDS: ENOXAPARIN 40 MG/0.4 ML SYRINGE SUB-Q (09:22)
[2022-01-08] MEDS: PREGABALIN (*CRX) 75 MG CAPSULE PO ×2 (09:30→21:17)
[2022-01-08 11:34] LABS: Glucose Point of Care 185 mg/dl (65-105)
--- NOTE | 2022-01-08 14:29 | PM.IMPN ---
Progress Note: A&P Assessment and Plan (1) Acute on chronic diastolic (congestive) heart failure: Code(s): I50.33 - Acute on chronic diastolic (congestive) heart failure Status: Acute Assessment and Plan: Echo 12/17/21: EF 45-50% with abnormal diastolic dysfunction, severe pHTN. Edema mostly in flanks. Suspect also related to right heart failure. Continue diuretic therapy. Monitor kidney function and electrolytes. Patient reports some urinary retention secondary to the edema that he had at the scrotum and lower extremities. Dudley has been placed. May need follow-up with Urology as an outpatient as the patient will likely need to be discharged with the Dudley. Will continue to monitor and see if Dudley can be discharged in the hospital. (2) Hyperkalemia: Code(s): E87.5 - Hyperkalemia Status: Acute Assessment and Plan: Potassium 5.7 on admisison but resolved now. Not on potassium but is on Spironolactone. Resolved. Follow (3) Obstructive sleep apnea: Code(s): G47.33 - Obstructive sleep apnea (adult) (pediatric) Status: Acute Assessment and Plan: Caesar is compliant with therapy. Continue the same (4) Chronic respiratory failure with hypoxia, on home oxygen therapy: Code(s): J96.11 - Chronic respiratory failure with hypoxia; Z99.81 - Dependence on supplemental oxygen Status: Acute Assessment and Plan: Caesar with chronic respiratory failure on 3-4L at home. He appears to be at baseline. Monitor respiratory status. (5) Atrial flutter: Code(s): I48.92 - Unspecified atrial flutter Status: Acute Assessment and Plan: [place] with history of Paroxysmal AFib. Tele showing intermittently in/out AFib. Per Cardiology note earlier this month, patient has a history of severe peptic ulcer disease so not on anticoagulation. Not on rate controlling agents (6) Pulmonary HTN: Code(s): I27.20 - Pulmonary hypertension, unspecified Status: Acute Assessment and Plan: Patient with severe pulmonary HTN and increased right sided pressures. Fluid status will be difficult to control given the cirrhosis, CHF and pulmonary HTN. Currently on Bumex IV. He is having excellent UOP. Renal function stable. Continue to diurese (7) Liver cirrhosis: Code(s): K74.60 - Unspecified cirrhosis of liver Status: Acute Assessment and Plan: Patietn noted to have cirrhosis of the liver with small amount of ascites by US last admisison. Probably related to above. Complicating his fluid status. Subjective Date/time seen: 01/08/22 14:29 Interval history: 81yo male with CHF, severe pHTN, CAD, COPD and pAFib here for scrotal edema and found to have CHF. Patient feels much better today. Shortness of breath is improved. No chest pain. No nausea or vomiting. Eating well. He has had 2 loose bowel movements and is concerned that this may worsen. Normally walks with a cane. Normally wears 3-4 L of oxygen at home. He titrates this by symptoms. Exam Narrative: AF 98.1 108/47 65 16 100% 4L Gen - NARD Chest - bibasilar inspiratory crackles, nml RR CV -RRR S1/S2; Tele showing 3 episodes of brief NSVT and probably in/out AFib Abd - Soft, NT/ND, Positive BS. large lower mid abdominal hernia - scrotal edema. Dudley secured draining clear yellow urine Ext - trace pedal edema with significant flank edema. Psych - Nml mood and affect Skin - Warm and dry. right forearm dressing clean and dry Objective Data Vital Signs Vital Signs: Vital Signs - 24 hr 01/07/22 16:00 01/07/22 22:09 01/07/22 21:54 Temperature 97.2 F L Pulse Rate 74 77 Respiratory Rate 16 Blood Pressure 126/78 Pulse Oximetry 98 95 Oxygen Delivery Nasal Cannula Oxygen Flow Rate 4 01/08/22 01:45 01/07/22 20:01 01/08/22 00:03 Temperature Pulse Rate 59 L 75 75 Respiratory Rate Blood Pressure Pulse Oximetry 94 Oxygen
[2022-01-08 16:36] LABS: Glucose Point of Care 158 mg/dl (65-105)
[2022-01-08] MEDS: ACETAMINOPHEN 325 MG TABLET 650 MG PO (21:17)
[2022-01-08] MEDS: DONEPEZIL HCL 5 MG TABLET PO (21:17)
[2022-01-08 21:45] LABS: Glucose Point of Care 152 mg/dl (65-105)
--- NOTE | 2022-01-08 23:56 | PC.NURSE ---
Pt continues to have headache so provider was notified and prn tylenol was ordered. Pt stated that the tylenol was helpful. Pt has no other complaints or needs at this time. Pt participated and contributed in plan of care for this shift. Will continue to monitor pt.
[2022-01-09] VITALS (9 sets, daily range): BP systolic 116–127; BP diastolic 53–65; PULSE 57–96; RESP 16–18; TEMP 36.2–36.4; O2SAT 94–98
[2022-01-09 06:59] LABS: Albumin Level 3.7 g/dL (3.5-5.1); Blood Urea Nitrogen 20 mg/dL (9-20); Calcium 7.7 mg/dL (8.4-10.2); Carbon Dioxide > 40 mmol/L (22-30); Chloride 87 mmol/L (98-107); Estimated CRCL calculation 45 ml/min; Estimated Glomerular Filt Rate 58; Glucose 117 mg/dL (65-110); Magnesium 1.3 mg/dL (1.6-2.3); Phosphorus 3.7 mg/dL (2.5-4.5); Potassium 3.5 mmol/L (3.4-5.0); Sodium 138 mmol/L (137-145)
[2022-01-09 07:42] LABS: Glucose Point of Care 112 mg/dl (65-105)
[2022-01-09] MEDS: ENOXAPARIN 40 MG/0.4 ML SYRINGE SUB-Q (08:58)
[2022-01-09] MEDS: EMPAGLIFLOZIN 10 MG TABLET PO (08:58)
[2022-01-09] MEDS: BUMETANIDE INJ 2.5 MG/10 ML VIAL 2 MG IV PUSH ×2 (08:58→17:54)
[2022-01-09] MEDS: FERROUS SULFATE 324 MG TABLET PO ×2 (08:59→17:54)
[2022-01-09] MEDS: PREGABALIN (*CRX) 75 MG CAPSULE PO ×2 (08:59→21:15)
[2022-01-09] MEDS: TAMSULOSIN HCL 0.4 MG CAPSULE PO (08:59)
[2022-01-09] MEDS: MAGNESIUM OXIDE 400 MG TABLET PO ×2 (08:59→17:54)
[2022-01-09 11:13] LABS: Glucose Point of Care 196 mg/dl (65-105)
--- NOTE | 2022-01-09 13:56 | PM.IMPN ---
Progress Note: A&P Assessment and Plan (1) Acute on chronic diastolic (congestive) heart failure: Code(s): I50.33 - Acute on chronic diastolic (congestive) heart failure Status: Acute Assessment and Plan: Echo 12/17/21: EF 45-50% with abnormal diastolic dysfunction, severe pHTN. Edema mostly in flanks now and improving. Suspect also related to right heart failure. Continue diuretic therapy. Monitor kidney function and electrolytes. Continue Empagliflozin. Resume lower dose Spironolactone. Patient reports some urinary retention secondary to the edema that he had at the scrotum and lower extremities. Dudley was placed. Will continue to monitor and see if Dudley can be removed in the hospital. (2) Hyperkalemia: Code(s): E87.5 - Hyperkalemia Status: Acute Assessment and Plan: Potassium 5.7 on admisison but resolved now. Not on potassium but is on Spironolactone. Resolved. Follow (3) Obstructive sleep apnea: Code(s): G47.33 - Obstructive sleep apnea (adult) (pediatric) Status: Acute Assessment and Plan: Caesar is compliant with therapy. Continue the same (4) Chronic respiratory failure with hypoxia, on home oxygen therapy: Code(s): J96.11 - Chronic respiratory failure with hypoxia; Z99.81 - Dependence on supplemental oxygen Status: Acute Assessment and Plan: Patient with chronic respiratory failure on 3-4L at home. He appears to be at baseline. Monitor respiratory status. (5) Atrial flutter: Code(s): I48.92 - Unspecified atrial flutter Status: Acute Assessment and Plan: Patient with history of Paroxysmal AFib. Tele showing intermittently in/out AFib. Per Cardiology note earlier this month, patient has a history of severe peptic ulcer disease so not on anticoagulation. Not on rate controlling agents (6) Pulmonary HTN: Code(s): I27.20 - Pulmonary hypertension, unspecified Status: Acute Assessment and Plan: Patient with severe pulmonary HTN and increased right sided pressures. Fluid status will be difficult to control given the cirrhosis, CHF and pulmonary HTN. Currently on Bumex IV. He is having excellent UOP. Renal function stable. Continue to diurese (7) Liver cirrhosis: Code(s): K74.60 - Unspecified cirrhosis of liver Status: Acute Assessment and Plan: Patient noted to have cirrhosis of the liver with small amount of ascites by US last admission. Probably related to above. Complicating his fluid status. Subjective Date/time seen: 01/09/22 13:56 Interval history: 81yo male with CHF, severe pHTN, CAD, COPD and pAFib here for scrotal edema and found to have CHF. Patient slept well. He remains on 4 L. Shortness of breath is better. Minimal dyspnea on exertion. His diarrhea has improved. He did have urine retention on admission which has been a problem for him in the past. Exam Narrative: AF 97.4 127/53 96 16 98% 4L Gen - NARD Chest - decreased breath sounds bibasilar right greater than left CV -RRR S1/S2; Tele showing PVCs Abd - Soft, NT/ND, Positive BS. large lower mid abdominal hernia - scrotal edema. Dudley secured draining clear yellow urine Ext - trace pedal edema with improved flank edema. Psych - Nml mood and affect Skin - Warm and dry. right forearm dressing clean and dry Objective Data Vital Signs Vital Signs: Vital Signs - 24 hr 01/08/22 14:00 01/08/22 16:00 01/08/22 22:00 Temperature 98.1 F 97.9 F Pulse Rate 65 65 76 Respiratory Rate 16 18 Blood Pressure 108/47 L 134/65 Pulse Oximetry 100 97 Oxygen Delivery Oxygen Flow Rate 01/08/22 21:17 01/08/22 20:00 01/09/22 00:04 Temperature Pulse Rate 78 72 Respiratory Rate Blood Pressure Pulse Oximetry 97 Oxygen Delivery Nasal Cannula Oxygen Flow Rate 4 01/09/22 04:02 01/09/22 06:00 01/09/22 08:00 Temperature 97.5 F L Pulse Rate 63 66 57 L Respiratory R
[2022-01-09 16:31] LABS: Glucose Point of Care 154 mg/dl (65-105)
[2022-01-09] MEDS: MAGNESIUM SULF 2 GM/WATER 50ML 2 GM/50 ML BAG IVPB (17:50)
[2022-01-09] MEDS: ACETAMINOPHEN 325 MG TABLET 650 MG PO (21:14)
[2022-01-09] MEDS: DONEPEZIL HCL 5 MG TABLET PO (21:15)
[2022-01-09] MEDS: SPIRONOLACTONE 12.5 MG TABLET PO (21:15)
[2022-01-09 21:55] LABS: Glucose Point of Care 189 mg/dl (65-105)
[2022-01-10] VITALS (7 sets, daily range): BP systolic 102–115; BP diastolic 53–57; PULSE 57–80; RESP 16; TEMP 35.9–36.2; O2SAT 96–98
[2022-01-10 07:06] LABS: Blood Urea Nitrogen 28 mg/dL (9-20); Calcium 7.5 mg/dL (8.4-10.2); Carbon Dioxide > 40 mmol/L (22-30); Chloride 86 mmol/L (98-107); Estimated CRCL calculation 59 ml/min; Estimated Glomerular Filt Rate > 60; Glucose 113 mg/dL (65-110); Magnesium 1.6 mg/dL (1.6-2.3); Potassium 3.5 mmol/L (3.4-5.0); Sodium 135 mmol/L (137-145)
[2022-01-10] MEDS: ENOXAPARIN 40 MG/0.4 ML SYRINGE SUB-Q (08:19)
[2022-01-10] MEDS: TAMSULOSIN HCL 0.4 MG CAPSULE PO (08:20)
[2022-01-10] MEDS: EMPAGLIFLOZIN 10 MG TABLET PO (08:20)
[2022-01-10] MEDS: SPIRONOLACTONE 12.5 MG TABLET PO ×2 (08:20→16:23)
[2022-01-10] MEDS: MAGNESIUM OXIDE 400 MG TABLET PO ×2 (08:20→16:23)
[2022-01-10] MEDS: FERROUS SULFATE 324 MG TABLET PO ×2 (08:21→16:23)
[2022-01-10] MEDS: BUMETANIDE 1 MG TABLET 2 MG PO ×2 (08:22→16:23)
[2022-01-10] MEDS: PREGABALIN (*CRX) 75 MG CAPSULE PO (08:22)
[2022-01-10 11:54] LABS: Glucose Point of Care 140 mg/dl (65-105)
[2022-01-10] MEDS: ACETAMINOPHEN 325 MG TABLET 650 MG PO (12:34)
--- NOTE | 2022-01-10 15:38 | PM.DS ---
DS: Admitting Diagnosis Discharge Date 01/10/22 Admitting Diagnosis scrotal edema DS: Discharge Diagnosis Discharge Diagnosis (1) Acute on chronic diastolic (congestive) heart failure: Code(s): I50.33 - Acute on chronic diastolic (congestive) heart failure Status: Acute (2) Hyperkalemia: Code(s): E87.5 - Hyperkalemia Status: Acute (3) Obstructive sleep apnea: Code(s): G47.33 - Obstructive sleep apnea (adult) (pediatric) Status: Acute (4) Chronic respiratory failure with hypoxia, on home oxygen therapy: Code(s): J96.11 - Chronic respiratory failure with hypoxia; Z99.81 - Dependence on supplemental oxygen Status: Acute (5) Atrial flutter: Code(s): I48.92 - Unspecified atrial flutter Status: Acute (6) Pulmonary HTN: Code(s): I27.20 - Pulmonary hypertension, unspecified Status: Acute (7) Liver cirrhosis: Code(s): K74.60 - Unspecified cirrhosis of liver Status: Acute DS: Summary Hospital Course Reason for hospitalization: 81yo male with CHF, severe pHTN, CAD, COPD and pAFib here for scrotal edema and found to have CHF. Please see H&P for details Hospital Course: Patient presents with scrotal edema and found to have acute on chronic systolic and diastolic CHF exacerbation. Echo 12/17/21: EF 45-50% with abnormal diastolic dysfunction, severe pHTN. Edema mostly in flanks. Also suspect also related to right heart failure. Treated with IV Bumex. We continued Empagliflozin. We resumed lower dose Spironolactone. Patient reports some urinary retention secondary to the edema that he had at the scrotum and lower extremities.? Dudley was placed. Scrotal edema improved and able to remove Dudley successfully. Potassium 5.7 on admisison related to Spironolactone. Potassium improved. Able to resume lower dose Spironolactone. Patietn was compliant with BiPAP therapy. Patient with chronic respiratory failure on 3-4L at home. He remained at baseline. Patient with history of Paroxysmal AFib. Tele showing in/out AFib. Per Cardiology note earlier this month, patient has a history of severe peptic ulcer disease so not on anticoagulation. Patient with severe pulmonary HTN and increased right sided pressures. Fluid status will be difficult to control given the cirrhosis, CHF and pulmonary HTN. Patient noted to have cirrhosis of the liver with small amount of ascites by US last admission. He had clinical improvement. He feels ready for discharge. Plan discharge home. Status at Discharge Cognitive/behavioral status at discharge: Stable Time Spent with Patient Time attestation: Total time spent providing and/or coordinating discharge services: 38 minutes Time spent: Greater than 30 minutes Exam Narrative: AF 97.1 102/53 60 16 97% 4L Gen - NARD Chest - decreased BS bibasilar, nml RR CV -RRR S1/S2; Tele showing 13 beat NSVT Abd - Soft, NT/ND, Positive BS. large lower mid abdominal hernia - scrotal edema minimal Ext - trace pedal edema with minimal flank edema. Psych - Nml mood and affect Skin - Warm and dry. right forearm dressing clean and dry DS: Data Data Completed and Pending Labs on day of discharge: Labs from last 24 hours 01/10/22 01/10/22 01/09/22 11:47 06:10 21:20 Sodium 135 L Potassium 3.5 Chloride 86 L Carbon Dioxide > 40 H Anion Gap BUN 28 H Creatinine 0.90 Estim Creat Clear Calc 59 Estimated GFR > 60 Glucose 113 H POC Capillary Glucose 140 H 189 H Calcium 7.5 L Magnesium 1.6 01/09/22 16:29 Sodium Potassium Chloride Carbon Dioxide Anion Gap BUN Creatinine Estim Creat Clear Calc Estimated GFR Glucose POC Capillary Glucose 154 H Calcium Magnesium Discharge Plan Discharge Attending physician on discharge: Feliz Tran Discharging Clinician: Feliz Tran Anticipated Discharge Date/Time: 01/10/22 15:47 Patient Dispositio
== END 2022-01-10 16:36 | disposition home health service (06) | DRG 291 ==
LOC: ANHED 15:58 → ANH3MEDSUR 17:13
PROVIDERS: Chiropractor; Internal Medicine; Physician Assistant; Admitting Provider Family Medicine; Emergency Provider Emergency Medicine; PCP Internal Medicine; Visit Provider Internal Medicine
DX: I11.0 Hypertensive heart disease with heart failure (principal); I50.43 Acute on chronic combined systolic (congestive) and diastolic (congestive) heart failure; J96.11 Chronic respiratory failure with hypoxia; I48.92 Unspecified atrial flutter; I27.20 Pulmonary hypertension, unspecified; K74.60 Unspecified cirrhosis of liver; I50.810 Right heart failure, unspecified; Z99.81 Dependence on supplemental oxygen; D50.9 Iron deficiency anemia, unspecified; E11.9 Type 2 diabetes mellitus without complications; Z23 Encounter for immunization; R33.8 Other retention of urine; E87.8 Other disorders of electrolyte and fluid balance, not elsewhere classified; E87.5 Hyperkalemia; I48.0 Paroxysmal atrial fibrillation; G47.33 Obstructive sleep apnea (adult) (pediatric); N40.0 Benign prostatic hyperplasia without lower urinary tract symptoms; I25.10 Atherosclerotic heart disease of native coronary artery without angina pectoris; K21.9 Gastro-esophageal reflux disease without esophagitis; J44.9 Chronic obstructive pulmonary disease, unspecified; G89.29 Other chronic pain; Z96.89 Presence of other specified functional implants; F48.2 Pseudobulbar affect; M48.00 Spinal stenosis, site unspecified; M19.90 Unspecified osteoarthritis, unspecified site; Z79.84 Long term (current) use of oral hypoglycemic drugs; Z86.73 Personal history of transient ischemic attack (TIA), and cerebral infarction without residual deficits; Z87.11 Personal history of peptic ulcer disease; Z87.891 Personal history of nicotine dependence; Z98.41 Cataract extraction status, right eye; Z98.42 Cataract extraction status, left eye
CPT/HCPCS: 36415; 71045; 80048; 80053; 80069; 82948; 83735; 83880; 84100; 84132; 84484; 85025; 85027; 85610; 85730; 90471; 90694; 93005; 96374; 96375; 99291; A9270; G0008; J1170; J1650; J1815; J1940; J3475

== ENCOUNTER 2022-02-07 14:53 | Inpatient (IN) | payer MEDICARE, MEDICAID, SELFPAY ==
--- NOTE | ~2022-02-07 | XR_ITS ---
EXAMINATION: XR chest 1V portable DATE: 02/07/2022 17:22 INDICATION: Congestive heart failure TECHNIQUE: frontal view of the chest was obtained. COMPARISON: Chest radiograph dated 01/06/2022 FINDINGS: Cardiomegaly with pulmonary vascular congestion. Increased interstitial pattern in the bilateral mid to lower lung zones along with some more patchy airspace opacities in the bilateral infrahilar region s. Small right pleural effusion. No pneumothorax. Advanced bilateral glenohumeral osteoarthritis. IMPRESSION: 1. Interstitial opacities in the bilateral mid to lower lung zones with more patchy infrahilar airspa ce opacities most likely congestive heart failure related pulmonary edema although differential inclu faith pneumonia. 2. Cardiomegaly. Reviewed, dictated and finalized at location A. [employer] OPERATOR IMPRESSION: 1. Interstitial opacities in the bilateral mid to lower lung zones with more pa tchy infrahilar airspace opacities most likely congestive heart failure related pulmonary edema although differential includes pneumonia. 2. Cardiomegaly.
[2022-02-07 14:52] VITALS: BP 149/79; PULSE 77; RESP 24; TEMP 36.4; O2SAT 98
--- NOTE | 2022-02-07 15:21 | ED.MALEGU ---
HPI - Male Genitourinary General Chief complaint: Urogenital-Male Stated complaint: catheter placed, no urine out put x 36 hours, 6# Time Seen by Provider: 02/07/22 14:55 History of Present Illness HPI Narrative: Patient is an 81-year-old male with a history of CHF, pulmonary hypertension presenting with decreased urinary output. Patient states that he has been taking increased doses of Lasix at home due to heart failure. States that over the last several days he has gained at least 7 to 8 pounds. States that he has only been urinating about 20 cc every few hours. States that the pill form of Lasix does not seem to work for him. He denies chest pain or shortness of breath. Patient states that his home health nurse tried to replace the catheter today due to the decreased output but she was unable to. He denies fevers, palpitations, lightheadedness, abdominal pain, vomiting, diarrhea. Related Data Home Medications Medication Instructions Recorded Confirmed pregabalin 75 mg capsule (Lyrica) 75 mg PO Q12H 10/24/20 02/07/22 tamsulosin 0.4 mg capsule (Flomax) 0.4 mg PO DAILY 10/24/20 02/07/22 donepezil 5 mg tablet (Aricept) 5 mg PO HS 11/12/21 02/07/22 lidocaine-prilocaine 2.5 %-2.5 % 1 applic PRN PRN Pain 11/12/21 02/07/22 topical cream metformin 1,000 mg tablet 1,000 mg PO PRN PRN Hyperglycemia 11/12/21 02/07/22 ondansetron HCl 4 mg tablet 4 mg PO TID PRN Nausea 11/12/21 02/07/22 meclizine 12.5 mg tablet 12.5 mg PO TID PRN Dizziness 12/16/21 02/07/22 Allergies Allergy/AdvReac Type Severity Reaction Status Date / Time No Known Allergies Allergy Verified 01/10/22 16:10 Review of Systems Review of Systems: All systems reviewed & are unremarkable except as noted in HPI and below PMFSH Past Medical History Medical History Arthritis Benign prostatic hyperplasia Cerebrovascular accident 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 Chronic anemia Chronic pain Patient had a pain pump inserted in February 2019. Chronic respiratory failure with hypoxia, on home oxygen therapy Baseline oxygen requirement is 3 L nasal cannula. Congestive heart failure Echocardiogram February 2021: EF 55-60% (improved from prior echo of 45%) left ventricular septal wall motion abnormal related to bundle-branch block, grade 2 diastolic dysfunction, severe pulmonary hypertension with RVSP of 74, severe enlargement of the right atrium Coronary artery disease Gastroesophageal reflux disease History of bleeding peptic ulcer Hypertension Iron deficiency anemia Receives frequent iron infusions. Moderate pulmonary hypertension Estimated pulmonary arterial systolic pressure was 54 mmHg on echocardiogram dated 10/25/2020. Obstructive sleep apnea Paroxysmal atrial fibrillation Pseudobulbar affect Spinal stenosis Type 2 diabetes mellitus Hemoglobin A1c was 6.3% on 10/25/2020. Surgical History Surgical History History of bilateral cataract extraction History of hernia repair Family History Family History Father Acute myocardial infarction Sibling Acute myocardial infarction Brain aneurysm Other No problems noted. 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 Code status: Full code. Smoking packs per day: 3 Smoking cigarettes per day: 60.0 Years smoked: 30 Smoking pack-years: 90.00 Smoking status: Never smoker Tobacco type: cigarettes Second hand tobacco smoke exposure: No Additional smoking assessment comments: quit 25 years ago Alcohol intake: never Substance use: never Substance use type: does not use Lack of Transportation: No Lack of Food: Never True Current Housi
[2022-02-07 16:49] LABS: Basophils Percent Auto 0.4 % (0.2-1.2); Eosinophils Absolute Auto 0.1 K/mm3 (0-0.3); Eosinophils Percent Auto 1.2 % (0-4.4); Hematocrit 35.9 % (42.0-52.0); Hemoglobin 10.3 g/dL (14.0-18.0); Immature Granulocyte Absolute 0.03 K/mm3 (0.00-0.031); Immature Granulocyte Percent A 0.4 % (0-0.5); Lymphocytes Absolute Auto 0.58 K/mm3 (0.9-3.2); Lymphocytes Percent Auto 8.6 % (18.3-44.2); Mean Corpuscular HGB Conc 28.7 g/dl (32-36); Mean Corpuscular Hemoglobin 27.3 pg (26-34); Mean Corpuscular Volume 95.2 fl (80-100); Mean Platelet Volume 11.2 fl (7.4-10.4); Monocytes Absolute Auto 0.9 K/mm3 (0.1-0.6); Monocytes Percent Auto 13.4 % (2.6-8.5); Neutrophils Absolute Auto 5.1 K/mm3 (1.3-6.7); Platelet Count Result 168 k/mm3 (150-375); Red Blood Count 3.77 M/mm3 (4.6-6.20); Red Cell Distribution Width 22.5 % (11.5-14.5); White Blood Count 6.7 K/mm3 (4.5-10.0)
--- NOTE | 2022-02-07 17:03 | ECG_ITS ---
Measurements Intervals Ragan Rate: 64 P: MN: 0 QRS: 131 QRSD: 121 T: -14 QT: 450 QTc: 465 Interpretive Statements ATRIAL FLUTTER/TACHYCARDIA INTRAVENTRICULAR CONDUCTION DELAY DELAYED PRECORDIAL R/S TRANSITION HIGH LATERAL INFARCT, AGE INDETERMINATE BORDERLINE ST-T WAVE ABNORMALITY- INFERIOR LEADS ABNORMAL ECG COMPARED TO ECG 01/06/2022 14:30:34 NO SIGNIFICANT CHANGES Electronically Signed On 02-07-2022 22:23:29 GLOBAL ACCOUNT DIRECTOR by Waqas Shankar D.O.
[2022-02-07 17:07] LABS: Alanine Aminotransferase 13 U/L (6-50); Albumin Level 4.1 g/dL (3.5-5.1); Alkaline Phosphatase 145 U/L (38-126); Anion Gap 12 mmol/L (8-16); Aspartate Amino Transferase 23 U/L (17-59); Bilirubin,Total 0.9 mg/dL (0.2-1.3); Blood Urea Nitrogen 42 mg/dL (9-20); Calcium 8.6 mg/dL (8.4-10.2); Carbon Dioxide 25 mmol/L (22-30); Chloride 101 mmol/L (98-107); Estimated CRCL calculation 39 ml/min; Estimated Glomerular Filt Rate 45; Glucose 120 mg/dL (65-110); Potassium 6.6 mmol/L (3.4-5.0); Sodium 138 mmol/L (137-145)
[2022-02-07 17:15] VITALS: PULSE 64; RESP 17
[2022-02-07 17:18] LABS: Hypochromasia 1+ (NORMAL); Ovalocytes 1+ (NORMAL); Platelet Estimate Adequate (Adequate); Schistocytes None Seen (NORMAL)
[2022-02-07] MEDS: ALBUTEROL SULFATE NEB 2.5 MG/3 ML INH 5 MG INHALATION (17:20)
[2022-02-07 17:27] VITALS: PULSE 67; RESP 19
[2022-02-07 17:27] LABS: INR 1.2; Prothrombin Time 15.2 Seconds (11.1-14.7)
[2022-02-07 17:29] LABS: NT Pro B Type Natriuretic Pept 15900 pg/mL (5-100)
[2022-02-07] MEDS: BUMETANIDE INJ 1 MG/4 ML VIAL IV PUSH (18:45)
[2022-02-07] MEDS: DEXTROSE 50% 25 GM/50 ML SYRINGE IV PUSH ×2 (18:45→23:44)
[2022-02-07] MEDS: INSULIN HUMAN REGULAR (*BKC) 100 UNITS/ML 10 UNITS IV PUSH ×2 (18:45→23:39)
[2022-02-07 19:55] LABS: Appearance Urine Cloudy (Clear); Bilirubin Urine 1+ (Negative); Blood Urine 2+ (Negative); Color Urine Yellow (Yellow); Glucose Urine UA Trace mg/dL (Negative); Ketones Urine Trace mg/dL (Negative); Leukocyte Esterase Ur 3+ LEU/UL (Negative); Nitrate Urine Negative (Negative); Protein Urine 2+ mg/dL (Negative); Specific Grav Ur >= 1.030 (1.001-1.035); Urobilinogen Urine 0.2 mg/dL (<2.0); pH Urine 5.5 (5.0-9.0)
[2022-02-07 20:00] VITALS: PULSE 85
[2022-02-07 20:00] LABS: Bacteria Urine 3+ /hpf; Hyaline Casts Urine 50+ /lpf; Mucus Urine Rare /lpf; RBC Urine >75 /hpf (0-2); Squamous Epithelial Cell Urine Occasional /hpf (Few); WBC Clumps Urine Present /HPF; WBC Urine >75 /hpf
[2022-02-07 20:01] LABS: Add Urine Microscopic? YES
[2022-02-07 20:05] VITALS: BP 145/76; PULSE 80; RESP 20; TEMP 36.5; O2SAT 93
[2022-02-07 20:06] VITALS: BMI 35.0
[2022-02-07 20:08] VITALS: BMI 35.0
[2022-02-07 20:31] LABS: Influenza A QL RT-PCR Negative (Negative); Influenza B QL RT-PCR Negative (Negative); SARS-CoV-2 RNA PCR Negative
--- NOTE | 2022-02-07 21:00 | PM.IMHP ---
H&P: HPI History of Present Illness Date/Time: 02/07/22 21:00 Chief Complaint: Decreased urine output. Narrative: This is a very pleasant 81-year-old male with congestive heart failure, severe pulmonary hypertension, coronary artery disease, chronic respiratory failure with hypoxia, chronic obstructive pulmonary disease, paroxysmal atrial fibrillation, type 2 diabetes mellitus, and other comorbidities who presented to the emergency department from home for evaluation of decreased urine output. He is well known to the hospitalist service from recurrent admissions due to decompensated heart failure though he has not been here since the end of December 2021. He has however been hospitalized at [facility] in [place] twice since that time for the same reasons. He has issues with urinary retention related to BPH in addition to marked, ongoing swelling of his penis and scrotum. His urine output has dropped off significantly over the past day and half and it has not been draining any urine at all today. [facility] came and changed the catheter today however he still has no urine output and he came in for evaluation. Attempts in the emergency department to place another catheter were unsuccessful and ultimately it was decided that he did not need a Dudley catheter as he was voiding frequently. However the time my evaluation it is noted that he is getting up every 20 to 30 minutes and urinating perhaps 50-100 ml at a time. Bladder scan shows at least 400 ml in the bladder. Workup in ED was significant for a BUN and creatinine of 42 and 1.50 respectively and his potassium level was 6.9. Chest x-ray once again showed congestive changes and his BNP is elevated from baseline. He is being admitted in this setting for further treatment and evaluation. He is eating and drinking as per usual. He has been taking his medications as prescribed and it looks like he is still on bumetanide, spironolactone, and metolazone 3 times a week. Despite this he continues to have significant swelling and he maintains compliance with his diet. Review of Systems Review of Systems: Twelve systems were reviewed. No fever, chills, or sweats. No cold or flu symptoms. No sick contacts. He has not had chest pain, pleuritic pain, or palpitations. No significant shortness of breath. Appetite has been okay. No abdominal pain. He has discomfort in his scrotum due to the swelling. Except as documented, all other systems were reviewed and are negative. 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 Chronic anemia Chronic pain Patient had a pain pump inserted in February 2019. Chronic respiratory failure with hypoxia, on home oxygen therapy Baseline oxygen requirement is 3 L nasal cannula. Congestive heart failure Echocardiogram February 2021: EF 55-60% (improved from prior echo of 45%) left ventricular septal wall motion abnormal related to bundle-branch block, grade 2 diastolic dysfunction, severe pulmonary hypertension with RVSP of 74, severe enlargement of the right atrium Coronary artery disease Gastroesophageal reflux disease History of bleeding peptic ulcer Hypertension Iron deficiency anemia Receives frequent iron infusions. Moderate pulmonary hypertension Estimated pulmonary arterial systolic pressure was 54 mmHg on echocardiogram dated 10/25/2020. Obstructive sleep apnea Paroxysmal atrial fibrillation Pseudobulbar affect Spinal stenosis Type 2 diabetes mellitus Hemoglobin A1c was 6.3% on 10/25/2020. Surgical History Surgical History History of bilateral cataract extraction History of hernia repair Family History Family History Father Acute myocardia
[2022-02-07 21:09] LABS: Anion Gap 11 mmol/L (8-16); Blood Urea Nitrogen 42 mg/dL (9-20); Calcium 8.5 mg/dL (8.4-10.2); Carbon Dioxide 28 mmol/L (22-30); Chloride 100 mmol/L (98-107); Estimated CRCL calculation 39 ml/min; Estimated Glomerular Filt Rate 45; Glucose 62 mg/dL (65-110); Potassium 6.1 mmol/L (3.4-5.0); Sodium 139 mmol/L (137-145)
[2022-02-07 21:15] LABS: Troponin I 0.033 ng/mL (0.000-0.034)
[2022-02-07] MEDS: BUMETANIDE INJ 1 MG/4 ML VIAL 2 MG IV PUSH (23:35)
[2022-02-07] MEDS: SODIUM BICARBONATE 8.4% 50 MEQ/50 ML SYRINGE IV PUSH (23:40)
[2022-02-07] MEDS: SODIUM POLYSTYRENE SULFONONATE 15 GM/60 ML BTL PO (23:45)
[2022-02-07] MEDS: CALCIUM GLUC 1,000 MG/NS 100ML 1,000 MG/100 ML BAG 200 MG IVPB (23:50)
[2022-02-08] VITALS (10 sets, daily range): BP systolic 118–134; BP diastolic 62–67; PULSE 62–85; RESP 16–18; TEMP 36.4–36.6; O2SAT 90–98
[2022-02-08] MEDS: DONEPEZIL HCL 5 MG TABLET PO ×2 (00:30→20:37)
[2022-02-08] MEDS: PREGABALIN (*CRX) 75 MG CAPSULE PO ×3 (00:30→20:37)
[2022-02-08 01:32] LABS: Anion Gap 10 mmol/L (8-16); Blood Urea Nitrogen 43 mg/dL (9-20); Calcium 8.5 mg/dL (8.4-10.2); Carbon Dioxide 31 mmol/L (22-30); Chloride 98 mmol/L (98-107); Estimated CRCL calculation 42 ml/min; Estimated Glomerular Filt Rate 49; Glucose 173 mg/dL (65-110); Potassium 5.9 mmol/L (3.4-5.0); Sodium 139 mmol/L (137-145)
[2022-02-08 05:51] LABS: Hematocrit 34.5 % (42.0-52.0); Mean Corpuscular Volume 93.2 fl (80-100); Mean Platelet Volume 10.5 fl (7.4-10.4); Platelet Count Result 142 k/mm3 (150-375); Red Cell Distribution Width 22.2 % (11.5-14.5); White Blood Count 5.3 K/mm3 (4.5-10.0)
[2022-02-08 06:02] LABS: Alanine Aminotransferase 11 U/L (6-50); Albumin Level 3.9 g/dL (3.5-5.1); Alkaline Phosphatase 130 U/L (38-126); Anion Gap 6 mmol/L (8-16); Aspartate Amino Transferase 20 U/L (17-59); Bilirubin,Total 0.8 mg/dL (0.2-1.3); Blood Urea Nitrogen 42 mg/dL (9-20); Calcium 8.5 mg/dL (8.4-10.2); Carbon Dioxide 34 mmol/L (22-30); Chloride 98 mmol/L (98-107); Estimated CRCL calculation 44 ml/min; Estimated Glomerular Filt Rate 53; Glucose 70 mg/dL (65-110); Magnesium 1.9 mg/dL (1.6-2.3); Potassium 5.5 mmol/L (3.4-5.0); Sodium 138 mmol/L (137-145)
[2022-02-08 08:13] LABS: Glucose Point of Care 60 mg/dl (65-105)
[2022-02-08] MEDS: TAMSULOSIN HCL 0.4 MG CAPSULE PO (08:17)
[2022-02-08] MEDS: BUMETANIDE INJ 1 MG/4 ML VIAL IV PUSH ×2 (08:17→17:05)
[2022-02-08] MEDS: FERROUS SULFATE 324 MG TABLET PO ×2 (08:17→17:05)
[2022-02-08] MEDS: MAGNESIUM OXIDE 400 MG TABLET PO ×2 (08:17→17:05)
[2022-02-08] MEDS: ENOXAPARIN 40 MG/0.4 ML SYRINGE SUB-Q (08:17)
[2022-02-08 09:19] LABS: Glucose Point of Care 115 mg/dl (65-105)
--- NOTE | 2022-02-08 11:52 | WPDURCON ---
Assessment and Plan Assessment and plan (1) Scrotal edema: Code(s): N50.89 - Other specified disorders of the male genital organs Status: Acute Assessment and Plan: elevate scrotum while under towels and maximize ins an outs. Will take weeks to resolve his scrotal edema if ever due to his cardiac issues. I placed a Dudley catheter. He does not have urinary retention. He does not have a chronic indwelling Dudley. This catheter can be removed at the discretion of the primary team. Urology Consult Note HPI Date Seen: 02/08/22 Requesting Physician: Ruth Sharpe MD Primary Care Provider: Michael Oliver, Consult Narrative Narrative: Please note: This patient does not have chronic urinary retention. He does not have a chronic indwelling Dudley catheter. He has simply had catheters placed on multiple occasions due to urinary frequency during periods of diuresis Zack Orellana is a 81 year old male with a history of cardiac issues. He has chronic scrotal edema. He has had multiple admissions for various medical reasons. Catheters have been placed during periods of diuresis. He normally can void well on his own. He simply just has urinary frequency and it is difficult to measure I's and O's because it is hard for him to collect his urine due to his scrotal edema. I was specifically asked to place a Dudley catheter today. Evidently was attempted in the emergency room but unsuccessful as they could not find his meatus due to the scrotal edema. He is voiding well on his own. He has a full urinal at the side of his bed with clear yellow urine. He states he is having significant frequency. He states it is hard for him to get the urine within the collection canister. He has no other symptoms attributable to the urinary tract at this time Review of Systems Review of Systems: All systems reviewed & are unremarkable except as noted in HPI and below [facility] Past Medical History Medical History Arthritis Benign prostatic hyperplasia Cerebrovascular accident 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 Chronic anemia Chronic pain Patient had a pain pump inserted in February 2019. Chronic respiratory failure with hypoxia, on home oxygen therapy Baseline oxygen requirement is 3 L nasal cannula. Congestive heart failure Echocardiogram February 2021: EF 55-60% (improved from prior echo of 45%) left ventricular septal wall motion abnormal related to bundle-branch block, grade 2 diastolic dysfunction, severe pulmonary hypertension with RVSP of 74, severe enlargement of the right atrium Coronary artery disease Gastroesophageal reflux disease History of bleeding peptic ulcer Hypertension Iron deficiency anemia Receives frequent iron infusions. Moderate pulmonary hypertension Estimated pulmonary arterial systolic pressure was 54 mmHg on echocardiogram dated 10/25/2020. Obstructive sleep apnea Paroxysmal atrial fibrillation Pseudobulbar affect Spinal stenosis Type 2 diabetes mellitus Hemoglobin A1c was 6.3% on 10/25/2020. Surgical History Surgical History History of bilateral cataract extraction History of hernia repair Family History Family History Father Acute myocardial infarction Sibling Acute myocardial infarction Brain aneurysm Other No problems noted. Mother Breast cancer Social History Social History Social History: Healthcare power of defense attorney: Lennie Cruz, granddaughter. Code status: Full code. Smoking packs per day: 3 Smoking cigarettes per day: 60.0 Years smoked: 30 Smoking pack-years: 90.00 Smoking status: Never smoker Tobacco type: cigarettes Second hand tobacco smoke exposure: No Additional smoki
[2022-02-08 12:15] LABS: Glucose Point of Care 149 mg/dl (65-105)
--- NOTE | 2022-02-08 13:04 | PM.IMPN ---
Progress Note: A&P Assessment and Plan (1) Acute on chronic diastolic (congestive) heart failure: Code(s): I50.33 - Acute on chronic diastolic (congestive) heart failure Status: Acute (2) Acute kidney injury: Code(s): N17.9 - Acute kidney failure, unspecified Status: Acute (3) Hyperkalemia: Code(s): E87.5 - Hyperkalemia Status: Acute (4) Pulmonary hypertension: Code(s): I27.20 - Pulmonary hypertension, unspecified Status: Acute (5) Chronic respiratory failure with hypoxia, on home oxygen therapy: Code(s): J96.11 - Chronic respiratory failure with hypoxia; Z99.81 - Dependence on supplemental oxygen Status: Acute (6) Obstructive sleep apnea: Code(s): G47.33 - Obstructive sleep apnea (adult) (pediatric) Status: Acute Plan The patient presents to the ER today for evaluation of decreased urine output for the last day and a half. Dudley catheter was attempted in the emergency department but was unsuccessful and ultimately was deemed to not be necessary as he was voiding on his own. However he is getting up every 20 to 30 minutes and only voiding between 50 to 100 ml at a time. Bladder scan shows at least 400 ml in the bladder and unfortunately attempts at catheterization have been unsuccessful. Urology will likely need to be consulted for catheter placement tomorrow if he continues to have issues. Obstruction may very well be the etiology of his renal failure however he is now on metolazone 3 times week in addition to bumetanide and spironolactone and perhaps he is over diuresed though he continues to have pitting edema to the flanks and congestive changes on imaging. He will be cautiously diuresed with IV bumetanide 1 mg b.i.d.. Spironolactone is on hold as his potassium level was 6.9 when he came in. Metolazone is also on hold. He is otherwise stable and blood pressures are good. His home medications will be reviewed and resumed as appropriate. Unfortunately this patient continues to be hospitalized at this facility and others at such a frequent interval that he has not been able to have good follow-up with his specialist. It may very well be prudent to attempt inpatient transfer to a tertiary care facility for consideration of right heart catheterization and further workup for his pulmonary hypertension. At the very least he would benefit from being started on a vasodilator such as sildenafil and ideally his cardiac output would improve with treatment of his pulmonary arterial pressures which in turn may reduce the frequency of his hospitalizations. 02/08/2022 interval history: moderately obese patient presented with c/o unable to urinate, patient with mildly reduced EF of 45-50% was recently discharged Entresto, and lower dose of spironolactone, now present with shortness of breath, unable to [place]inate, [place] [address], and scrotal edema unable to urinate, patient was seen by urologist Dudley was placed but urologist does not suspect patient has urinary retention, patient being diuresed with Bumetanide 2mg IV BID and his Scr and K are have improved, will continue to monitor and further recommendation to follow. Subjective Date/time seen: 02/08/22 13:04 HPI-Narrative: This is a very pleasant 81-year-old male with congestive heart failure, severe pulmonary hypertension, coronary artery disease, chronic respiratory failure with hypoxia, chronic obstructive pulmonary disease, paroxysmal atrial fibrillation, type 2 diabetes mellitus, and other comorbidities who presented to the emergency department from home for evaluation of decreased urine output. He is well known to the hospitalist service from recurrent admissions due to decompensated heart failure though he has not been here since the end of December 2021. He has however been hospitalized at [facility] in [place] twice since that time for the same reasons. He has issues with urinary retention related to
[2022-02-08 17:25] LABS: Glucose Point of Care 143 mg/dl (65-105)
[2022-02-08 20:51] LABS: Glucose Point of Care 189 mg/dl (65-105)
[2022-02-09] VITALS (9 sets, daily range): BP systolic 118–134; BP diastolic 52–66; PULSE 64–133; RESP 16–20; TEMP 36.2–36.4; O2SAT 92–94
[2022-02-09 06:32] LABS: Hematocrit 33.4 % (42.0-52.0); Hemoglobin 9.6 g/dL (14.0-18.0); Immature Platelet Fraction Pct 6.8 % (0.9-11.2); Mean Corpuscular HGB Conc 28.7 g/dl (32-36); Mean Corpuscular Hemoglobin 26.6 pg (26-34); Mean Corpuscular Volume 92.5 fl (80-100); Mean Platelet Volume 11.1 fl (7.4-10.4); Platelet Count Result 146 k/mm3 (150-375); Red Blood Count 3.61 M/mm3 (4.6-6.20); Red Cell Distribution Width 21.6 % (11.5-14.5)
[2022-02-09 06:56] LABS: Anion Gap 6 mmol/L (8-16); Blood Urea Nitrogen 34 mg/dL (9-20); Carbon Dioxide 38 mmol/L (22-30); Chloride 93 mmol/L (98-107); Estimated CRCL calculation 51 ml/min; Estimated Glomerular Filt Rate > 60; Glucose 124 mg/dL (65-110); Magnesium 1.6 mg/dL (1.6-2.3); Potassium 5.1 mmol/L (3.4-5.0); Sodium 137 mmol/L (137-145)
[2022-02-09 08:09] LABS: Glucose Point of Care 119 mg/dl (65-105)
[2022-02-09] MEDS: ACETAMINOPHEN 325 MG TABLET 650 MG PO (10:16)
[2022-02-09] MEDS: PREGABALIN (*CRX) 75 MG CAPSULE PO ×2 (10:16→20:12)
[2022-02-09] MEDS: EMPAGLIFLOZIN 10 MG TABLET PO (10:17)
[2022-02-09] MEDS: FERROUS SULFATE 324 MG TABLET PO ×2 (10:17→17:15)
[2022-02-09] MEDS: TAMSULOSIN HCL 0.4 MG CAPSULE PO (10:17)
[2022-02-09] MEDS: MAGNESIUM OXIDE 400 MG TABLET PO ×2 (10:17→17:15)
[2022-02-09] MEDS: BUMETANIDE INJ 1 MG/4 ML VIAL IV PUSH ×2 (10:18→17:15)
[2022-02-09] MEDS: ENOXAPARIN 40 MG/0.4 ML SYRINGE SUB-Q (10:18)
[2022-02-09 12:22] LABS: Glucose Point of Care 168 mg/dl (65-105)
--- NOTE | 2022-02-09 13:31 | PM.IMPN ---
Progress Note: A&P Assessment and Plan (1) Acute on chronic diastolic (congestive) heart failure: Code(s): I50.33 - Acute on chronic diastolic (congestive) heart failure Status: Acute (2) Acute kidney injury: Code(s): N17.9 - Acute kidney failure, unspecified Status: Acute (3) Hyperkalemia: Code(s): E87.5 - Hyperkalemia Status: Acute (4) Pulmonary hypertension: Code(s): I27.20 - Pulmonary hypertension, unspecified Status: Acute (5) Chronic respiratory failure with hypoxia, on home oxygen therapy: Code(s): J96.11 - Chronic respiratory failure with hypoxia; Z99.81 - Dependence on supplemental oxygen Status: Acute (6) Obstructive sleep apnea: Code(s): G47.33 - Obstructive sleep apnea (adult) (pediatric) Status: Acute Plan The patient presents to the ER today for evaluation of decreased urine output for the last day and a half. Dudley catheter was attempted in the emergency department but was unsuccessful and ultimately was deemed to not be necessary as he was voiding on his own. However he is getting up every 20 to 30 minutes and only voiding between 50 to 100 ml at a time. Bladder scan shows at least 400 ml in the bladder and unfortunately attempts at catheterization have been unsuccessful. Urology will likely need to be consulted for catheter placement tomorrow if he continues to have issues. Obstruction may very well be the etiology of his renal failure however he is now on metolazone 3 times week in addition to bumetanide and spironolactone and perhaps he is over diuresed though he continues to have pitting edema to the flanks and congestive changes on imaging. He will be cautiously diuresed with IV bumetanide 1 mg b.i.d.. Spironolactone is on hold as his potassium level was 6.9 when he came in. Metolazone is also on hold. He is otherwise stable and blood pressures are good. His home medications will be reviewed and resumed as appropriate. Unfortunately this patient continues to be hospitalized at this facility and others at such a frequent interval that he has not been able to have good follow-up with his specialist. It may very well be prudent to attempt inpatient transfer to a tertiary care facility for consideration of right heart catheterization and further workup for his pulmonary hypertension. At the very least he would benefit from being started on a vasodilator such as sildenafil and ideally his cardiac output would improve with treatment of his pulmonary arterial pressures which in turn may reduce the frequency of his hospitalizations. 02/09/2022 interval history: moderately obese patient presented with c/o unable to urinate, patient with mildly reduced EF of 45-50% was recently discharged Entresto, and lower dose of spironolactone, now present with shortness of breath, unable to urinate, [place] [address], and scrotal edema unable to urinate, patient was seen by urologist Dudley was placed but urologist does not suspect patient has urinary retention, patient being diuresed with Bumetanide 2mg IV BID and his Scr and K are have improved, patient urinated 4.6L since arrival, his Scr has improved 1.1 compared to 1.5 upon arrival, will continue to monitor and further recommendation to follow. Subjective Date/time seen: 02/09/22 13:31 The patient presents to the ER today for evaluation of decreased urine output for the last day and a half. Dudley catheter was attempted in the emergency department but was unsuccessful and ultimately was deemed to not be necessary as he was voiding on his own. However he is getting up every 20 to 30 minutes and only voiding between 50 to 100 ml at a time. Bladder scan shows at least 400 ml in the bladder and unfortunately attempts at catheterization have been unsuccessful. Urology will likely need to be consulted for catheter placement tomorrow if he continues to have issues. Obstruction may very well be the etiology of his renal failure ho
[2022-02-09] MEDS: DONEPEZIL HCL 5 MG TABLET PO (20:12)
[2022-02-10] VITALS (10 sets, daily range): BP systolic 115–123; BP diastolic 52–62; PULSE 57–77; RESP 16–18; TEMP 36.3–36.7; O2SAT 93–99
[2022-02-10 06:15] LABS: Hematocrit 32.3 % (42.0-52.0); Hemoglobin 9.6 g/dL (14.0-18.0); Mean Corpuscular HGB Conc 29.7 g/dl (32-36); Mean Corpuscular Hemoglobin 26.4 pg (26-34); Mean Corpuscular Volume 88.7 fl (80-100); Mean Platelet Volume 10.5 fl (7.4-10.4); Platelet Count Result 119 k/mm3 (150-375); Red Blood Count 3.64 M/mm3 (4.6-6.20); Red Cell Distribution Width 21.6 % (11.5-14.5); White Blood Count 4.1 K/mm3 (4.5-10.0)
[2022-02-10 06:45] LABS: Anion Gap 4 mmol/L (8-16); Blood Urea Nitrogen 31 mg/dL (9-20); Calcium 7.9 mg/dL (8.4-10.2); Carbon Dioxide 36 mmol/L (22-30); Chloride 93 mmol/L (98-107); Estimated CRCL calculation 62 ml/min; Estimated Glomerular Filt Rate > 60; Glucose 131 mg/dL (65-110); Magnesium 1.4 mg/dL (1.6-2.3); Potassium 4.7 mmol/L (3.4-5.0); Sodium 133 mmol/L (137-145)
[2022-02-10] MEDS: TAMSULOSIN HCL 0.4 MG CAPSULE PO (08:19)
[2022-02-10] MEDS: PREGABALIN (*CRX) 75 MG CAPSULE PO ×2 (08:19→20:52)
[2022-02-10] MEDS: FERROUS SULFATE 324 MG TABLET PO ×2 (08:19→17:38)
[2022-02-10] MEDS: MAGNESIUM OXIDE 400 MG TABLET PO (08:19)
[2022-02-10] MEDS: EMPAGLIFLOZIN 10 MG TABLET PO (08:19)
[2022-02-10] MEDS: ENOXAPARIN 40 MG/0.4 ML SYRINGE SUB-Q (08:19)
[2022-02-10] MEDS: BUMETANIDE INJ 1 MG/4 ML VIAL IV PUSH ×2 (08:20→17:38)
[2022-02-10] MEDS: ACETAMINOPHEN 325 MG TABLET 650 MG PO (08:20)
[2022-02-10] MEDS: MAGNESIUM SULF 2 GM/WATER 50ML 2 GM/50 ML BAG IVPB (10:50)
--- NOTE | 2022-02-10 11:44 | P.DS_ITS ---
DS: Summary Time Spent with Patient Time attestation: Total time spent providing and/or coordinating discharge services: DS: Data Data Completed and Pending Labs on day of discharge: Labs from last 24 hours 02/10/22 02/10/22 02/09/22 06:00 06:00 12:09 WBC 4.1 L RBC 3.64 L Hgb 9.6 L Hct 32.3 L MCV 88.7 MCH 26.4 MCHC 29.7 L RDW 21.6 H Plt Count 119 L MPV 10.5 H % Immature Plt Fraction 6.0 Sodium 133 L Potassium 4.7 Chloride 93 L Carbon Dioxide 36 H Anion Gap 4 L BUN 31 H Creatinine 0.90 Estim Creat Clear Calc 62 Estimated GFR > 60 Glucose 131 H POC Capillary Glucose 168 H Calcium 7.9 L Magnesium 1.4 L Preliminary micro results at discharge 02/07/22 19:48 Urine Culture - Preliminary Urine Clean Catch Klebsiella pnemoniae Discharge Plan Discharge Attending physician on discharge: Ruth Sharpe Consulting providers: Martell Daniels Discharging Clinician: Ruth Sharpe Patient Disposition: Home, Self-Care Activity: as tolerated Diet: heart healthy Discharge Instructions: Per Care Coordination, patient plans to resume home health with [facility] ([phone]) for PT/OT and senior care services. Please fax discharge instructions and medication sheets to [phone]. Patient to follow-up with his urologist for voiding trail, patient to follow- up with his primary care provider as soon as possible patient instructed if any symptoms worsen to go to nearest emergency department Patient Instructions: Antibiotic Form Stand Alone Forms: General Discharge Information Follow-up/Referrals: Martell Daniels MD [Physician] - [facility],Michael Maldonado MD [Primary Care Provider] - Discharge Medications: Continued tamsulosin [Flomax] 0.4 mg capsule 0.4 mg PO DAILY pregabalin [Lyrica] 75 mg capsule 75 mg PO Q12H ondansetron HCl 4 mg tablet 4 mg PO TID PRN (Reason: Nausea) lidocaine-prilocaine 2.5-2.5 % cream 1 applic PRN PRN (Reason: Pain) Rx Instructions: APPLY TO PUMP SITE 1 HR BEFORE REFILL metformin 1,000 mg tablet 1,000 mg PO PRN PRN (Reason: Hyperglycemia) Rx Instructions: Do not administer for glucose less than 150 donepezil [Aricept] 5 mg tablet 5 mg PO HS metolazone 2.5 mg tablet 2.5 mg PO MOWEFR Qty: 30 0RF spironolactone [Aldactone] 50 mg Tablet 25 mg PO BID 30 Days Qty: 60 0RF meclizine 12.5 mg tablet 12.5 mg PO TID PRN (Reason: Dizziness) magnesium oxide 400 mg (241.3 mg magnesium) Tablet 400 mg PO BID 30 Days Qty: 60 0RF Jardiance 10 mg Tablet 10 mg PO DAILY 30 Days Qty: 30 0RF ferrous sulfate 325 mg (65 mg iron) tablet 325 mg PO BID 30 Days Qty: 60 0RF Date of admission: 02/09/22 16:42 Primary Care Provider: Benito,Michael Maldonado Admitting Provider: Ruth Sharpe Attending physician on admission: Ruth Sharpe Condition: Stable
--- NOTE | 2022-02-10 12:07 | PM.IMPN ---
Progress Note: A&P Assessment and Plan (1) Acute on chronic diastolic (congestive) heart failure: Code(s): I50.33 - Acute on chronic diastolic (congestive) heart failure Status: Acute Assessment and Plan: 02/10/2022 interval history:?moderately obese patient presented with c/o unable to urinate, patient with mildly reduced EF of 45-50% was recently discharged Entresto, and lower dose of spironolactone, now present with shortness of breath, unable to urinate, [place] [address], and scrotal edema unable to urinate, patient was seen by urologist Dudley was placed but urologist does not suspect patient has urinary retention, patient being diuresed with Bumetanide 2mg IV BID and his Scr and K are have improved, patient urinated 9.5L since arrival, his Scr has improved 1.1 compared to 1.5 upon arrival,? plan was to discharge the patient today however urine culture is growing Klebsiella pneumonia and Gram-negative bacilli, will continue ceftriaxone will follow-up on identification and sensitivity will continue to monitor and further recommendation to follow. (2) Acute kidney injury: Code(s): N17.9 - Acute kidney failure, unspecified Status: Acute (3) Hyperkalemia: Code(s): E87.5 - Hyperkalemia Status: Acute (4) Pulmonary hypertension: Code(s): I27.20 - Pulmonary hypertension, unspecified Status: Acute (5) Chronic respiratory failure with hypoxia, on home oxygen therapy: Code(s): J96.11 - Chronic respiratory failure with hypoxia; Z99.81 - Dependence on supplemental oxygen Status: Acute (6) Obstructive sleep apnea: Code(s): G47.33 - Obstructive sleep apnea (adult) (pediatric) Status: Acute Subjective Date/time seen: 02/10/22 12:07 The patient presents to the ER today for evaluation of decreased urine output for the last day and a half. Dudley catheter was attempted in the emergency department but was unsuccessful and ultimately was deemed to not be necessary as he was voiding on his own. However he is getting up every 20 to 30 minutes and only voiding between 50 to 100 ml at a time.? Bladder scan shows at least 400 ml in the bladder and unfortunately attempts at catheterization have been unsuccessful. Urology will likely need to be consulted for catheter placement tomorrow if he continues to have issues. Obstruction may very well be the etiology of his renal failure however he is now on metolazone 3 times week in addition to bumetanide and spironolactone and perhaps he is over diuresed though he continues to have pitting edema to the flanks and congestive changes on imaging. He will be cautiously diuresed with IV bumetanide 1 mg b.i.d..? Spironolactone is on hold as his potassium level was 6.9 when he came in. Metolazone is also on hold. He is otherwise stable and blood pressures are good. His home medications will be reviewed and resumed as appropriate. Unfortunately this patient continues to be hospitalized at this facility and others at such a frequent interval that he has not been able to have good follow-up with his specialist. It may very well be prudent to attempt inpatient transfer to a tertiary care facility for consideration of right heart catheterization and further workup for his pulmonary hypertension. At the very least he would benefit from being started on a vasodilator such as sildenafil and ideally his cardiac output would improve with treatment of his pulmonary arterial pressures which in turn may reduce the frequency of his hospitalizations. 02/10/2022 interval history:?moderately obese patient presented with c/o unable to urinate, patient with mildly reduced EF of 45-50% was recently discharged Entresto, and lower dose of spironolactone, now present with shortness of breath, unable to urinate, [place] [address], and scrotal edema unable to urinate, patient was seen by urologist Dudley was placed but urologist does not suspect patient has urinary retentio
[2022-02-10] MEDS: cefTRIAXone 2 GM in SODIUM CHLORIDE 0.9% IV 100 ML 200 ML IVPB (14:06)
[2022-02-10] MEDS: DONEPEZIL HCL 5 MG TABLET PO (20:52)
[2022-02-11] VITALS (9 sets, daily range): BP systolic 110–120; BP diastolic 54–66; PULSE 60–76; RESP 16–18; TEMP 36.4–36.7; O2SAT 94–98
[2022-02-11 06:50] LABS: Hemoglobin 10.1 g/dL (14.0-18.0); Immature Platelet Fraction Pct 6.5 % (0.9-11.2); Mean Corpuscular HGB Conc 29.7 g/dl (32-36); Mean Corpuscular Hemoglobin 26.3 pg (26-34); Mean Corpuscular Volume 88.5 fl (80-100); Mean Platelet Volume 10.3 fl (7.4-10.4); Platelet Count Result 129 k/mm3 (150-375); Red Blood Count 3.84 M/mm3 (4.6-6.20); Red Cell Distribution Width 21.6 % (11.5-14.5); White Blood Count 4.7 K/mm3 (4.5-10.0)
[2022-02-11 07:12] LABS: Anion Gap 9 mmol/L (8-16); Blood Urea Nitrogen 28 mg/dL (9-20); Calcium 8.3 mg/dL (8.4-10.2); Carbon Dioxide 35 mmol/L (22-30); Chloride 94 mmol/L (98-107); Estimated CRCL calculation 56 ml/min; Estimated Glomerular Filt Rate > 60; Glucose 112 mg/dL (65-110); Magnesium 1.6 mg/dL (1.6-2.3); Potassium 3.7 mmol/L (3.4-5.0); Sodium 138 mmol/L (137-145)
[2022-02-11] MEDS: EMPAGLIFLOZIN 10 MG TABLET PO (08:34)
[2022-02-11] MEDS: BUMETANIDE INJ 1 MG/4 ML VIAL IV PUSH ×2 (08:34→17:07)
[2022-02-11] MEDS: MAGNESIUM OXIDE 400 MG TABLET PO (08:34)
[2022-02-11] MEDS: ENOXAPARIN 40 MG/0.4 ML SYRINGE SUB-Q (08:34)
[2022-02-11] MEDS: FERROUS SULFATE 324 MG TABLET PO ×2 (08:34→17:14)
[2022-02-11] MEDS: PREGABALIN (*CRX) 75 MG CAPSULE PO ×2 (08:34→20:34)
[2022-02-11] MEDS: TAMSULOSIN HCL 0.4 MG CAPSULE PO (08:34)
[2022-02-11] MEDS: ACETAMINOPHEN 325 MG TABLET 650 MG PO (10:02)
[2022-02-11] MEDS: cefTRIAXone 2 GM in SODIUM CHLORIDE 0.9% IV 100 ML 200 ML IVPB (13:30)
[2022-02-11] MEDS: ERTAPENEM SODIUM 1 GM in SODIUM CHLORIDE 0.9% IV 50 ML 100 ML IVPB (17:06)
--- NOTE | 2022-02-11 17:20 | PM.IMPN ---
Progress Note: A&P Assessment and Plan (1) Acute on chronic diastolic (congestive) heart failure: Code(s): I50.33 - Acute on chronic diastolic (congestive) heart failure Status: Acute Assessment and Plan: 02/11/2022 interval history:?moderately obese patient presented with c/o unable to urinate, patient with mildly reduced EF of 45-50% was recently discharged Entresto, and lower dose of spironolactone, now present with shortness of breath, unable to urinate, [place] [address], and scrotal edema unable to urinate, patient was seen by urologist Dudley was placed but urologist does not suspect patient has urinary retention, patient being diuresed with Bumetanide 2mg IV BID and his Scr and K are have improved, patient urinated 10.5L since arrival, his Scr has improved 1.1 compared to 1.5 upon arrival,? plan was to discharge the patient today however urine culture is growing Klebsiella pneumonia and Gram-negative bacilli, discussed with ID pharmacy started the patient on ertapenem and will follow-up further identification gram-negative bacilli and further recommendation to follow (2) Acute kidney injury: Code(s): N17.9 - Acute kidney failure, unspecified Status: Acute (3) Hyperkalemia: Code(s): E87.5 - Hyperkalemia Status: Acute (4) Pulmonary hypertension: Code(s): I27.20 - Pulmonary hypertension, unspecified Status: Acute (5) Chronic respiratory failure with hypoxia, on home oxygen therapy: Code(s): J96.11 - Chronic respiratory failure with hypoxia; Z99.81 - Dependence on supplemental oxygen Status: Acute (6) Obstructive sleep apnea: Code(s): G47.33 - Obstructive sleep apnea (adult) (pediatric) Status: Acute Subjective Date/time seen: 02/11/22 17:20 02/11/2022 interval history:?moderately obese patient presented with c/o unable to urinate, patient with mildly reduced EF of 45-50% was recently discharged Entresto, and lower dose of spironolactone, now present with shortness of breath, unable to urinate, [place] [address], and scrotal edema unable to urinate, patient was seen by urologist Dudley was placed but urologist does not suspect patient has urinary retention, patient being diuresed with Bumetanide 2mg IV BID and his Scr and K are have improved, patient urinated 10.5L since arrival, his Scr has improved 1.1 compared to 1.5 upon arrival,? plan was to discharge the patient today however urine culture is growing Klebsiella pneumonia and Gram-negative bacilli, discussed with ID pharmacy started the patient on ertapenem and will follow-up further identification gram-negative bacilli and further recommendation to follow. Review of Systems Review of Systems: All systems reviewed & are unremarkable except as noted in HPI and below Objective Data Vital Signs Vital Signs: Vital Signs - 24 hr 02/10/22 20:00 02/10/22 20:00 02/10/22 22:00 Temperature 98.1 F Pulse Rate 61 58 L Respiratory Rate 16 Blood Pressure 115/60 Pulse Oximetry 99 97 Oxygen Delivery Nasal Cannula Oxygen Flow Rate 3 02/11/22 00:00 02/11/22 04:00 02/11/22 06:00 Temperature 98.1 F Pulse Rate 73 76 60 Respiratory Rate 16 Blood Pressure 110/58 L Pulse Oximetry 97 Oxygen Delivery Oxygen Flow Rate 02/11/22 08:00 02/11/22 08:00 02/11/22 12:00 Temperature Pulse Rate 73 66 Respiratory Rate Blood Pressure Pulse Oximetry 94 Oxygen Delivery Nasal Cannula Oxygen Flow Rate 3 02/11/22 14:00 Temperature 97.6 F Pulse Rate 67 Respiratory Rate 18 Blood Pressure 120/66 Pulse Oximetry 98 Oxygen Delivery Oxygen Flow Rate Intake/Output Intake/Output: Intake & Output 02/08/22 02/09/22 02/10/22 02/11/22 23:59 23:59 23:59 23:59 Intake Total 720 600 530 600 Output Total 5350 5650 4750 3100 [facility] -4630 -5050 -4220 -2500 Meds/Results Medications: Active Medications Generic Name Dose Route Start Last Admin
[2022-02-11] MEDS: DONEPEZIL HCL 5 MG TABLET PO (20:34)
[2022-02-12] VITALS (9 sets, daily range): BP systolic 110–119; BP diastolic 51–56; PULSE 56–96; RESP 16; TEMP 36.4–36.6; O2SAT 96–100
[2022-02-12 06:13] LABS: Hemoglobin 9.7 g/dL (14.0-18.0); Mean Corpuscular HGB Conc 29.4 g/dl (32-36); Mean Corpuscular Hemoglobin 27.2 pg (26-34); Mean Corpuscular Volume 92.7 fl (80-100); Mean Platelet Volume 10.5 fl (7.4-10.4); Platelet Count Result 124 k/mm3 (150-375); Red Blood Count 3.56 M/mm3 (4.6-6.20); Red Cell Distribution Width 21.5 % (11.5-14.5); White Blood Count 3.9 K/mm3 (4.5-10.0)
[2022-02-12 06:23] LABS: Anion Gap 5 mmol/L (8-16); Blood Urea Nitrogen 29 mg/dL (9-20); Carbon Dioxide 39 mmol/L (22-30); Chloride 95 mmol/L (98-107); Estimated CRCL calculation 56 ml/min; Estimated Glomerular Filt Rate > 60; Glucose 115 mg/dL (65-110); Magnesium 1.4 mg/dL (1.6-2.3); Potassium 4.4 mmol/L (3.4-5.0); Sodium 139 mmol/L (137-145)
[2022-02-12] MEDS: FERROUS SULFATE 324 MG TABLET PO ×2 (08:44→17:14)
[2022-02-12] MEDS: TAMSULOSIN HCL 0.4 MG CAPSULE PO (08:44)
[2022-02-12] MEDS: ENOXAPARIN 40 MG/0.4 ML SYRINGE SUB-Q (08:44)
[2022-02-12] MEDS: PREGABALIN (*CRX) 75 MG CAPSULE PO ×2 (08:44→20:34)
[2022-02-12] MEDS: BUMETANIDE INJ 1 MG/4 ML VIAL IV PUSH ×2 (08:44→17:14)
[2022-02-12] MEDS: MAGNESIUM OXIDE 400 MG TABLET PO (08:44)
[2022-02-12] MEDS: EMPAGLIFLOZIN 10 MG TABLET PO (08:44)
--- NOTE | 2022-02-12 12:15 | PM.IMPN ---
Progress Note: A&P Assessment and Plan (1) Acute on chronic diastolic (congestive) heart failure: Code(s): I50.33 - Acute on chronic diastolic (congestive) heart failure Status: Acute Assessment and Plan: 02/11/2022 interval history:?moderately obese patient presented with c/o unable to urinate, patient with mildly reduced EF of 45-50% was recently discharged Entresto, and lower dose of spironolactone, now present with shortness of breath, unable [place] [address], and scrotal edema unable to urinate, patient was seen by urologist Dudley was placed but urologist does not suspect patient has urinary retention, patient being diuresed with Bumetanide 2mg IV BID and his Scr and K are have improved, patient urinated 10.5L since arrival, his Scr has improved 1.1 compared to 1.5 upon arrival,? plan was to discharge the patient today however urine culture is growing Klebsiella pneumonia and Gram-negative bacilli, discussed with ID pharmacy started the patient on ertapenem and will follow-up further identification gram-negative bacilli and further recommendation to follow (2) Acute kidney injury: Code(s): N17.9 - Acute kidney failure, unspecified Status: Acute (3) Hyperkalemia: Code(s): E87.5 - Hyperkalemia Status: Acute (4) Pulmonary hypertension: Code(s): I27.20 - Pulmonary hypertension, unspecified Status: Acute (5) Chronic respiratory failure with hypoxia, on home oxygen therapy: Code(s): J96.11 - Chronic respiratory failure with hypoxia; Z99.81 - Dependence on supplemental oxygen Status: Acute (6) Obstructive sleep apnea: Code(s): G47.33 - Obstructive sleep apnea (adult) (pediatric) Status: Acute Plan Acute on chronic congestive heart failure diastolic chronic respiratory failure with hypoxia on home oxygen 3 L Type 2 diabetes mellitus A1c 5.8 Atrial fibrillation not on anticoagulation due to recurrent episodes of epistaxis MALLORY on CPAP at night Liver cirrhosis unclear etiology Chronic anemia Code status full code DVT prophylaxis Lovenox Subjective Date/time seen: 02/12/22 12:15 Interval history: moderately obese patient presented with c/o unable to urinate, patient with mildly reduced EF of 45-50% was recently discharged Entresto, and lower dose of spironolactone, now present with shortness of breath, unable to [place]inate, [place] [address], and scrotal edema unable to urinate, patient was seen by urologist Dudley was placed but urologist does not suspect patient has urinary retention, patient being diuresed with Bumetanide 2mg IV BID and his Scr and K are have improved, patient urinated 10.5L? since arrival, his Scr has improved 1.1 compared to 1.5 upon arrival,? plan was to discharge the patient today however urine culture is growing? Klebsiella pneumonia and Gram-negative bacilli,? discussed with ID pharmacy started the patient on ertapenem and will follow-up further identification gram-negative bacilli and further recommendation to follow. no overnight events. Doing well. Swelling is improved. Breathing is fluid. Awaiting identification from the urine culture. Tolerating ertapenem. Review of Systems Review of Systems: All systems reviewed & are unremarkable except as noted in HPI and below Objective Data Vital Signs Vital Signs: Vital Signs - 24 hr 02/11/22 14:00 02/11/22 16:00 02/11/22 20:00 Temperature 97.6 F Pulse Rate 67 61 61 Respiratory Rate 18 Blood Pressure 120/66 Pulse Oximetry 98 Oxygen Delivery Oxygen Flow Rate 02/11/22 21:59 02/12/22 00:00 02/12/22 04:00 Temperature 97.6 F Pulse Rate 68 64 56 L Respiratory Rate 16 Blood Pressure 116/54 L Pulse Oximetry 96 Oxygen Delivery Oxygen Flow Rate 02/12/22 06:00 02/12/22 08:00 02/12/22 08:00 Temperature 97.6 F Pulse Rate 96 65 Respiratory Rate 16 Blood Pressure 110/56 L Pulse Oximetry 96 9
[2022-02-12] MEDS: ACETAMINOPHEN 325 MG TABLET 650 MG PO (15:47)
[2022-02-12] MEDS: ERTAPENEM SODIUM 1 GM in SODIUM CHLORIDE 0.9% IV 50 ML 100 ML IVPB (16:02)
[2022-02-12] MEDS: DONEPEZIL HCL 5 MG TABLET PO (20:34)
[2022-02-13] VITALS (10 sets, daily range): BP systolic 117–129; BP diastolic 50–66; PULSE 66–88; RESP 16–20; TEMP 36.6; O2SAT 98–100
[2022-02-13 05:58] LABS: Basophils Percent Auto 0.4 % (0.2-1.2); Eosinophils Absolute Auto 0.3 K/mm3 (0-0.3); Eosinophils Percent Auto 6.1 % (0-4.4); Hematocrit 33.1 % (42.0-52.0); Hemoglobin 9.7 g/dL (14.0-18.0); Immature Granulocyte Absolute 0.03 K/mm3 (0.00-0.031); Immature Granulocyte Percent A 0.6 % (0-0.5); Immature Platelet Fraction Pct 6.4 % (0.9-11.2); Lymphocytes Absolute Auto 0.55 K/mm3 (0.9-3.2); Lymphocytes Percent Auto 11.7 % (18.3-44.2); Mean Corpuscular HGB Conc 29.3 g/dl (32-36); Mean Corpuscular Hemoglobin 26.7 pg (26-34); Mean Corpuscular Volume 91.2 fl (80-100); Mean Platelet Volume 10.7 fl (7.4-10.4); Monocytes Absolute Auto 0.7 K/mm3 (0.1-0.6); Monocytes Percent Auto 14.4 % (2.6-8.5); Neutrophils Absolute Auto 3.2 K/mm3 (1.3-6.7); Neutrophils Percent Auto 66.8 % (45.5-73.1); Platelet Count Result 122 k/mm3 (150-375); Red Blood Count 3.63 M/mm3 (4.6-6.20); Red Cell Distribution Width 21.5 % (11.5-14.5); White Blood Count 4.7 K/mm3 (4.5-10.0)
[2022-02-13 06:09] LABS: Alanine Aminotransferase 15 U/L (6-50); Albumin Level 3.6 g/dL (3.5-5.1); Alkaline Phosphatase 150 U/L (38-126); Anion Gap 6 mmol/L (8-16); Aspartate Amino Transferase 26 U/L (17-59); Bilirubin,Total 0.6 mg/dL (0.2-1.3); Blood Urea Nitrogen 27 mg/dL (9-20); Calcium 8.2 mg/dL (8.4-10.2); Carbon Dioxide 36 mmol/L (22-30); Chloride 95 mmol/L (98-107); Estimated CRCL calculation 51 ml/min; Estimated Glomerular Filt Rate > 60; Glucose 123 mg/dL (65-110); Magnesium 1.4 mg/dL (1.6-2.3); Potassium 3.9 mmol/L (3.4-5.0); Sodium 137 mmol/L (137-145)
[2022-02-13 06:51] LABS: Hypochromasia 1+ (NORMAL); Ovalocytes 1+ (NORMAL); Platelet Estimate Decreased (Adequate)
[2022-02-13 06:57] LABS: Schistocytes None Seen (NORMAL)
[2022-02-13] MEDS: EMPAGLIFLOZIN 10 MG TABLET PO (09:10)
[2022-02-13] MEDS: PREGABALIN (*CRX) 75 MG CAPSULE PO ×2 (09:10→21:38)
[2022-02-13] MEDS: BUMETANIDE INJ 1 MG/4 ML VIAL IV PUSH ×2 (09:10→16:02)
[2022-02-13] MEDS: FERROUS SULFATE 324 MG TABLET PO ×2 (09:11→16:01)
[2022-02-13] MEDS: ENOXAPARIN 40 MG/0.4 ML SYRINGE SUB-Q (09:11)
[2022-02-13] MEDS: TAMSULOSIN HCL 0.4 MG CAPSULE PO (09:12)
[2022-02-13 09:27] LABS: Glucose Point of Care 216 mg/dl (65-105)
[2022-02-13] MEDS: MAGNESIUM SULF 2 GM/WATER 50ML 2 GM/50 ML BAG IVPB (11:26)
[2022-02-13 13:12] LABS: Glucose Point of Care 165 mg/dl (65-105)
[2022-02-13] MEDS: ERTAPENEM SODIUM 1 GM in SODIUM CHLORIDE 0.9% IV 50 ML 100 ML IVPB (16:02)
--- NOTE | 2022-02-13 17:06 | PM.IMPN ---
Progress Note: A&P Assessment and Plan (1) Acute on chronic diastolic (congestive) heart failure: Code(s): I50.33 - Acute on chronic diastolic (congestive) heart failure Status: Acute Assessment and Plan: 02/11/2022 interval history:?moderately obese patient presented with c/o unable to urinate, patient with mildly reduced EF of 45-50% was recently discharged Entresto, and lower dose of spironolactone, now present with shortness of breath, unable to [place]inate, [place] [address], and scrotal edema unable to urinate, patient was seen by urologist Dudley was placed but urologist does not suspect patient has urinary retention, patient being diuresed with Bumetanide 2mg IV BID and his Scr and K are have improved, patient urinated 10.5L since arrival, his Scr has improved 1.1 compared to 1.5 upon arrival,? plan was to discharge the patient today however urine culture is growing Klebsiella pneumonia which is ESBL 2 strains. ertapenem to cover for both his total 7 days course IV antibiotics discussed with care coordination for arrangement midline for IV antibiotics (2) Acute kidney injury: Code(s): N17.9 - Acute kidney failure, unspecified Status: Acute (3) Hyperkalemia: Code(s): E87.5 - Hyperkalemia Status: Acute (4) Pulmonary hypertension: Code(s): I27.20 - Pulmonary hypertension, unspecified Status: Acute (5) Chronic respiratory failure with hypoxia, on home oxygen therapy: Code(s): J96.11 - Chronic respiratory failure with hypoxia; Z99.81 - Dependence on supplemental oxygen Status: Acute (6) Obstructive sleep apnea: Code(s): G47.33 - Obstructive sleep apnea (adult) (pediatric) Status: Acute Plan Acute on chronic congestive heart failure diastolic chronic respiratory failure with hypoxia on home oxygen 3 L Type 2 diabetes mellitus A1c 5.8 Atrial fibrillation not on anticoagulation due to recurrent episodes of epistaxis MALLORY on CPAP at night Liver cirrhosis unclear etiology Chronic anemia Code status full code DVT prophylaxis Lovenox Subjective Date/time seen: 02/13/22 17:06 Interval history: moderately obese patient presented with c/o unable to urinate, patient with mildly reduced EF of 45-50% was recently discharged Entresto, and lower dose of spironolactone, now present with shortness of breath, unable to [place]inate, [place] [address], and scrotal edema unable to urinate, patient was seen by urologist Dudley was placed but urologist does not suspect patient has urinary retention, patient being diuresed with Bumetanide 2mg IV BID and his Scr and K are have improved, patient urinated 10.5L? since arrival, his Scr has improved 1.1 compared to 1.5 upon arrival,? plan was to discharge the patient today however urine culture is growing? Klebsiella pneumonia and Gram-negative bacilli,? discussed with ID pharmacy started the patient on ertapenem and will follow-up further identification gram-negative bacilli and further recommendation to follow. no overnight events. Doing well. Swelling is improved. Breathing is fluid. Awaiting identification from the urine culture. Tolerating ertapenem. 02/13/2022 no overnight events. Denies any complaints. No fever chills. Discussed with Infectious Disease pharmacist. Review of Systems Review of Systems: All systems reviewed & are unremarkable except as noted in HPI and below Exam Narrative: ?moderately obese Patient is comfortable, NAD HEENT: eyes are clear and none icteric LUNGS: normal respiratory effort Clear to auscultation bilaterally ABD:? obese distended Lower extremities: no edema cyanosis or clubbing SKIN: nonjaundiced Neuro: grossly intact. Scrotal swelling Dudley in-situ Objective Data Vital Signs Vital Signs: Vital Signs - 24 hr 02/12/22 22:00 02/12/22 20:00 02/13/22 00:00 Temperature Pulse Rate 80 64 81 Respiratory Rate 16 Blood Pressure 116/56 L Pulse O
[2022-02-13 17:11] LABS: Glucose Point of Care 143 mg/dl (65-105)
[2022-02-13 21:32] LABS: Glucose Point of Care 153 mg/dl (65-105)
[2022-02-13] MEDS: DONEPEZIL HCL 5 MG TABLET PO (21:39)
[2022-02-14] VITALS (10 sets, daily range): BP systolic 118–124; BP diastolic 43–70; PULSE 74–92; RESP 16–20; TEMP 36.3–36.7; O2SAT 95–100
[2022-02-14 05:47] LABS: Hematocrit 32.6 % (42.0-52.0); Hemoglobin 9.4 g/dL (14.0-18.0); Mean Corpuscular HGB Conc 28.8 g/dl (32-36); Mean Corpuscular Volume 93.7 fl (80-100); Mean Platelet Volume 11.6 fl (7.4-10.4); Platelet Count Result 130 k/mm3 (150-375); Red Blood Count 3.48 M/mm3 (4.6-6.20); Red Cell Distribution Width 21.5 % (11.5-14.5); White Blood Count 4.3 K/mm3 (4.5-10.0)
[2022-02-14 05:58] LABS: Anion Gap 7 mmol/L (8-16); Blood Urea Nitrogen 27 mg/dL (9-20); Calcium 8.1 mg/dL (8.4-10.2); Carbon Dioxide 37 mmol/L (22-30); Chloride 93 mmol/L (98-107); Estimated CRCL calculation 56 ml/min; Estimated Glomerular Filt Rate > 60; Glucose 105 mg/dL (65-110); Magnesium 1.7 mg/dL (1.6-2.3); Potassium 3.8 mmol/L (3.4-5.0); Sodium 137 mmol/L (137-145)
[2022-02-14 09:42] LABS: Glucose Point of Care 161 mg/dl (65-105)
[2022-02-14] MEDS: BUMETANIDE INJ 1 MG/4 ML VIAL IV PUSH ×2 (10:01→16:25)
[2022-02-14] MEDS: ENOXAPARIN 40 MG/0.4 ML SYRINGE SUB-Q (10:01)
[2022-02-14] MEDS: TAMSULOSIN HCL 0.4 MG CAPSULE PO (10:01)
[2022-02-14] MEDS: EMPAGLIFLOZIN 10 MG TABLET PO (10:02)
[2022-02-14] MEDS: MAGNESIUM OXIDE 400 MG TABLET PO (10:02)
[2022-02-14] MEDS: PREGABALIN (*CRX) 75 MG CAPSULE PO ×2 (10:08→19:51)
[2022-02-14] MEDS: FERROUS SULFATE 324 MG TABLET PO ×2 (10:30→16:25)
--- NOTE | 2022-02-14 11:53 | PM.IMPN ---
Progress Note: A&P Assessment and Plan (1) Acute on chronic diastolic (congestive) heart failure: Code(s): I50.33 - Acute on chronic diastolic (congestive) heart failure Status: Acute Assessment and Plan: 02/11/2022 interval history:?moderately obese patient presented with c/o unable to urinate, patient with mildly reduced EF of 45-50% was recently discharged Entresto, and lower dose of spironolactone, now present with shortness of breath, unable to [place]inate, [place] [address], and scrotal edema unable to urinate, patient was seen by urologist Dudley was placed but urologist does not suspect patient has urinary retention, patient being diuresed with Bumetanide 2mg IV BID and his Scr and K are have improved, patient urinated 10.5L? since arrival, his Scr has improved 1.1 compared to 1.5 upon arrival,? plan was to discharge the patient today however urine culture is growing? Klebsiella pneumonia which is ESBL 2 strains. ? ertapenem to cover for both his total 7 days course . Concludes on Thursday. Will continue IV antibiotics while inpatient as it is likely a short course (2) Acute kidney injury: Code(s): N17.9 - Acute kidney failure, unspecified Status: Acute (3) Hyperkalemia: Code(s): E87.5 - Hyperkalemia Status: Acute (4) Pulmonary hypertension: Code(s): I27.20 - Pulmonary hypertension, unspecified Status: Acute (5) Chronic respiratory failure with hypoxia, on home oxygen therapy: Code(s): J96.11 - Chronic respiratory failure with hypoxia; Z99.81 - Dependence on supplemental oxygen Status: Acute (6) Obstructive sleep apnea: Code(s): G47.33 - Obstructive sleep apnea (adult) (pediatric) Status: Acute Plan Acute on chronic congestive heart failure diastolic chronic respiratory failure with hypoxia on home oxygen 3 L Type 2 diabetes mellitus A1c 5.8 Atrial fibrillation not on anticoagulation due to recurrent episodes of epistaxis MALLORY on CPAP at night Liver cirrhosis unclear etiology Chronic anemia Code status full code DVT prophylaxis Lovenox Subjective Date/time seen: 02/14/22 11:53 Interval history: moderately obese patient presented with c/o unable to urinate, patient with mildly reduced EF of 45-50% was recently discharged Entresto, and lower dose of spironolactone, now present with shortness of breath, unable to [place]inate, [place] [address], and scrotal edema unable to urinate, patient was seen by urologist Dudley was placed but urologist does not suspect patient has urinary retention, patient being diuresed with Bumetanide 2mg IV BID and his Scr and K are have improved, patient urinated 10.5L? since arrival, his Scr has improved 1.1 compared to 1.5 upon arrival,? plan was to discharge the patient today however urine culture is growing? Klebsiella pneumonia and Gram-negative bacilli,? discussed with ID pharmacy started the patient on ertapenem and will follow-up further identification gram-negative bacilli and further recommendation to follow. no overnight events. Doing well. Swelling is improved. Breathing is fluid. Awaiting identification from the urine culture. Tolerating ertapenem. 02/13/2022 no overnight events. Denies any complaints. No fever chills. Discussed with Infectious Disease pharmacist. 02/14/2022 no new complaints. Swelling is improving. Breathing better. Denies any fever chills. Review of Systems Review of Systems: All systems reviewed & are unremarkable except as noted in HPI and below Exam Narrative: ?moderately obese Patient is comfortable, NAD HEENT: eyes are clear and none icteric LUNGS: normal respiratory effort Clear to auscultation bilaterally ABD:? obese distended Lower extremities: no edema cyanosis or clubbing SKIN: nonjaundiced Neuro: grossly intact. Scrotal swelling Dudley in-situ Objective Data Vital Signs Vital Signs: Vital Signs - 24 hr 02/13/22 12:00 02/13/22 13:0
[2022-02-14 12:59] LABS: Glucose Point of Care 177 mg/dl (65-105)
[2022-02-14] MEDS: ERTAPENEM SODIUM 1 GM in SODIUM CHLORIDE 0.9% IV 50 ML 100 ML IVPB (15:09)
[2022-02-14 17:24] LABS: Glucose Point of Care 145 mg/dl (65-105)
[2022-02-14] MEDS: DONEPEZIL HCL 5 MG TABLET PO (19:51)
[2022-02-14 20:12] LABS: Glucose Point of Care 153 mg/dl (65-105)
[2022-02-15] VITALS (11 sets, daily range): BP systolic 116–121; BP diastolic 49–73; PULSE 70–84; RESP 18–20; TEMP 36.4–36.6; O2SAT 95–100
[2022-02-15 06:32] LABS: Hematocrit 32.4 % (42.0-52.0); Hemoglobin 9.4 g/dL (14.0-18.0); Immature Platelet Fraction Pct 6.3 % (0.9-11.2); Mean Corpuscular Hemoglobin 27.3 pg (26-34); Mean Corpuscular Volume 94.2 fl (80-100); Mean Platelet Volume 10.8 fl (7.4-10.4); Platelet Count Result 140 k/mm3 (150-375); Red Blood Count 3.44 M/mm3 (4.6-6.20); White Blood Count 4.6 K/mm3 (4.5-10.0)
[2022-02-15 06:47] LABS: Blood Urea Nitrogen 29 mg/dL (9-20); Calcium 8.4 mg/dL (8.4-10.2); Carbon Dioxide > 40 mmol/L (22-30); Chloride 91 mmol/L (98-107); Estimated CRCL calculation 62 ml/min; Estimated Glomerular Filt Rate > 60; Glucose 106 mg/dL (65-110); Magnesium 1.6 mg/dL (1.6-2.3); Potassium 3.9 mmol/L (3.4-5.0); Sodium 135 mmol/L (137-145)
[2022-02-15] MEDS: PREGABALIN (*CRX) 75 MG CAPSULE PO ×2 (09:22→20:50)
[2022-02-15] MEDS: MAGNESIUM OXIDE 400 MG TABLET PO (09:22)
[2022-02-15] MEDS: TAMSULOSIN HCL 0.4 MG CAPSULE PO (09:23)
[2022-02-15] MEDS: FERROUS SULFATE 324 MG TABLET PO ×2 (09:23→17:10)
[2022-02-15] MEDS: BUMETANIDE INJ 1 MG/4 ML VIAL IV PUSH (09:23)
[2022-02-15] MEDS: ENOXAPARIN 40 MG/0.4 ML SYRINGE SUB-Q (09:23)
[2022-02-15 09:26] LABS: Glucose Point of Care 111 mg/dl (65-105)
[2022-02-15] MEDS: EMPAGLIFLOZIN 10 MG TABLET PO (09:27)
[2022-02-15] MEDS: ACETAMINOPHEN 325 MG TABLET 650 MG PO ×2 (09:34→20:50)
--- NOTE | 2022-02-15 12:01 | PM.IMPN ---
Progress Note: A&P Assessment and Plan (1) Acute on chronic diastolic (congestive) heart failure: Code(s): I50.33 - Acute on chronic diastolic (congestive) heart failure Status: Acute Assessment and Plan: 02/11/2022 interval history:?moderately obese patient presented with c/o unable to urinate, patient with mildly reduced EF of 45-50% was recently discharged Entresto, and lower dose of spironolactone, now present with shortness of breath, unable to [place]inate, [place] [address], and scrotal edema unable to urinate, patient was seen by urologist Dudley was placed but urologist does not suspect patient has urinary retention, patient being diuresed with Bumetanide 2mg IV BID and his Scr and K are have improved, patient urinated 10.5L? since arrival, his Scr has improved 1.1 compared to 1.5 upon arrival,? plan was to discharge the patient today however urine culture is growing? Klebsiella pneumonia which is ESBL 2 strains. ? ertapenem to cover for both his total 7 days course . Concludes on Thursday. Will continue IV antibiotics while inpatient as it is likely a short course And unable to do as outpatient basis (2) Acute kidney injury: Code(s): N17.9 - Acute kidney failure, unspecified Status: Acute (3) Hyperkalemia: Code(s): E87.5 - Hyperkalemia Status: Acute (4) Pulmonary hypertension: Code(s): I27.20 - Pulmonary hypertension, unspecified Status: Acute (5) Chronic respiratory failure with hypoxia, on home oxygen therapy: Code(s): J96.11 - Chronic respiratory failure with hypoxia; Z99.81 - Dependence on supplemental oxygen Status: Acute (6) Obstructive sleep apnea: Code(s): G47.33 - Obstructive sleep apnea (adult) (pediatric) Status: Acute Plan Urinary retention: Presented to the ER with decreased urine output with a and half. Dudley catheter was attempted in the ER was unsuccessful but deemed not necessary as he was voiding on his own but had urinary frequency and voiding between 50-100 mL at a time. Bladder scan in the ER showed at least 400 mils in the bladder and hence urology was consulted and catheter was placed. He has been intermittently catheterize throughout his past admission. Last admission he had a void trial done and subsequently had catheter removed and was discharged subsequently coming back with inability to void. Partly this is also because of an ongoing scrotal edema that he has which seems to be much better now. He does not necessarily have chronic urinary retention and hopefully will be able to come off the Dudley catheter. Since his scrotal edema seems to be quite improved now and with his recent urinary tract infection will attempt to do a void trial again this admission.Will discuss this with the patient and will go from there. urinary tract infection with ESBL Klebsiella pneumoniae Acute on chronic congestive heart failure diastolic chronic respiratory failure with hypoxia on home oxygen 3 L Type 2 diabetes mellitus A1c 5.8 Atrial fibrillation not on anticoagulation due to recurrent episodes of epistaxis MALLORY on CPAP at night Liver cirrhosis unclear etiology Chronic anemia Code status full code DVT prophylaxis Lovenox Subjective Date/time seen: 02/15/22 12:01 Interval history: moderately obese patient presented with c/o unable to urinate, patient with mildly reduced EF of 45-50% was recently discharged Entresto, and lower dose of spironolactone, now present with shortness of breath, unable to [place]inate, [place] [address], and scrotal edema unable to urinate, patient was seen by urologist Dudley was placed but urologist does not suspect patient has urinary retention, patient being diuresed with Bumetanide 2mg IV BID and his Scr and K are have improved, patient urinated 10.5L? since arrival, his Scr has improved 1.1 compared to 1.5 upon arrival,? plan was to discharge the patient today however urine culture is growing? Jasmeet
[2022-02-15 12:43] LABS: Glucose Point of Care 193 mg/dl (65-105)
[2022-02-15] MEDS: ERTAPENEM SODIUM 1 GM in SODIUM CHLORIDE 0.9% IV 50 ML 100 ML IVPB (17:10)
[2022-02-15 18:09] LABS: Glucose Point of Care 150 mg/dl (65-105)
[2022-02-15 19:46] LABS: Glucose Point of Care 158 mg/dl (65-105)
[2022-02-15] MEDS: DONEPEZIL HCL 5 MG TABLET PO (20:50)
[2022-02-16] VITALS (9 sets, daily range): BP systolic 100–121; BP diastolic 49–57; PULSE 73–84; RESP 16–20; TEMP 36.4–36.6; O2SAT 90–100
[2022-02-16 06:39] LABS: Hematocrit 31.5 % (42.0-52.0); Hemoglobin 9.2 g/dL (14.0-18.0); Mean Corpuscular HGB Conc 29.2 g/dl (32-36); Mean Corpuscular Hemoglobin 27.1 pg (26-34); Mean Corpuscular Volume 92.9 fl (80-100); Mean Platelet Volume 11.7 fl (7.4-10.4); Platelet Count Result 143 k/mm3 (150-375); Red Blood Count 3.39 M/mm3 (4.6-6.20); Red Cell Distribution Width 21.9 % (11.5-14.5); White Blood Count 5.1 K/mm3 (4.5-10.0)
[2022-02-16 06:50] LABS: Anion Gap 0 mmol/L (8-16); Blood Urea Nitrogen 31 mg/dL (9-20); Calcium 8.4 mg/dL (8.4-10.2); Carbon Dioxide 39 mmol/L (22-30); Chloride 94 mmol/L (98-107); Estimated CRCL calculation 56 ml/min; Estimated Glomerular Filt Rate > 60; Glucose 121 mg/dL (65-110); Magnesium 1.6 mg/dL (1.6-2.3); Potassium 3.7 mmol/L (3.4-5.0); Sodium 133 mmol/L (137-145)
--- NOTE | 2022-02-16 08:18 | PM.IMPN ---
Progress Note: A&P Assessment and Plan (1) Acute on chronic diastolic (congestive) heart failure: Code(s): I50.33 - Acute on chronic diastolic (congestive) heart failure Status: Acute Assessment and Plan: 02/11/2022 interval history:?moderately obese patient presented with c/o unable to urinate, patient with mildly reduced EF of 45-50% was recently discharged Entresto, and lower dose of spironolactone, now present with shortness of breath, unable to [place]inate, [place] [address], and scrotal edema unable to urinate, patient was seen by urologist Paz was placed but urologist does not suspect patient has urinary retention, patient being diuresed with Bumetanide 2mg IV BID and his Scr and K are have improved, patient urinated 10.5L? since arrival, his Scr has improved 1.1 compared to 1.5 upon arrival,? plan was to discharge the patient today however urine culture is growing? Klebsiella pneumonia which is ESBL 2 strains. ? ertapenem to cover for both his total 7 days course . Concludes on Thursday. Will continue IV antibiotics while inpatient as it is likely a short course And unable to do as outpatient basis (2) Acute kidney injury: Code(s): N17.9 - Acute kidney failure, unspecified Status: Acute (3) Hyperkalemia: Code(s): E87.5 - Hyperkalemia Status: Acute (4) Pulmonary hypertension: Code(s): I27.20 - Pulmonary hypertension, unspecified Status: Acute (5) Chronic respiratory failure with hypoxia, on home oxygen therapy: Code(s): J96.11 - Chronic respiratory failure with hypoxia; Z99.81 - Dependence on supplemental oxygen Status: Acute (6) Obstructive sleep apnea: Code(s): G47.33 - Obstructive sleep apnea (adult) (pediatric) Status: Acute Plan Urinary retention: Presented to the ER with decreased urine output with a and half. Paz catheter was attempted in the ER was unsuccessful but deemed not necessary as he was voiding on his own but had urinary frequency and voiding between 50-100 mL at a time. Bladder scan in the ER showed at least 400 mils in the bladder and hence urology was consulted and catheter was placed. He has been intermittently catheterize throughout his past admission. Last admission he had a void trial done and subsequently had catheter removed and was discharged subsequently coming back with inability to void. Partly this is also because of an ongoing scrotal edema that he has which seems to be much better now. He does not necessarily have chronic urinary retention and hopefully will be able to come off the Paz catheter. Since his scrotal edema seems to be quite improved now and with his recent urinary tract infection will attempt to do a void trial again this admission. discussed, agreeable. will remove paz today and do void trial. urinary tract infection with ESBL Klebsiella pneumoniae Acute on chronic congestive heart failure diastolic switch Bumex to oral Bumex. increase bumex dose today to 2 mg po bid. chronic respiratory failure with hypoxia on home oxygen 3 L Type 2 diabetes mellitus A1c 5.8 Atrial fibrillation not on anticoagulation due to recurrent episodes of epistaxis MALLORY on CPAP at night Liver cirrhosis unclear etiology Chronic anemia Code status full code DVT prophylaxis Lovenox Subjective Date/time seen: 02/16/22 08:18 Interval history: moderately obese patient presented with c/o unable to urinate, patient with mildly reduced EF of 45-50% was recently discharged Entresto, and lower dose of spironolactone, now present with shortness of breath, unable to urinate, [place] [address], and scrotal edema unable to urinate, patient was seen by urologist Paz was placed but urologist does not suspect patient has urinary retention, patient being diuresed with Bumetanide 2mg IV BID and his Scr and K are have improved, patient urinated 10.5L? since arrival, his Scr has improved 1.1 compared to 1.5 upon arrival,? pl
[2022-02-16 09:11] LABS: Glucose Point of Care 118 mg/dl (65-105)
[2022-02-16] MEDS: BUMETANIDE 1 MG TABLET PO (09:15)
[2022-02-16] MEDS: TAMSULOSIN HCL 0.4 MG CAPSULE PO (09:15)
[2022-02-16] MEDS: MAGNESIUM OXIDE 400 MG TABLET PO (09:15)
[2022-02-16] MEDS: PREGABALIN (*CRX) 75 MG CAPSULE PO ×2 (09:15→20:41)
[2022-02-16] MEDS: ENOXAPARIN 40 MG/0.4 ML SYRINGE SUB-Q (09:15)
[2022-02-16] MEDS: ACETAMINOPHEN 325 MG TABLET 650 MG PO ×2 (09:15→15:12)
[2022-02-16] MEDS: FERROUS SULFATE 324 MG TABLET PO ×2 (09:16→17:16)
[2022-02-16] MEDS: EMPAGLIFLOZIN 10 MG TABLET PO (09:17)
[2022-02-16 13:04] LABS: Glucose Point of Care 187 mg/dl (65-105)
[2022-02-16] MEDS: ERTAPENEM SODIUM 1 GM in SODIUM CHLORIDE 0.9% IV 50 ML 100 ML IVPB (15:50)
[2022-02-16] MEDS: BUMETANIDE 1 MG TABLET 2 MG PO (17:16)
[2022-02-16 17:47] LABS: Glucose Point of Care 143 mg/dl (65-105)
[2022-02-16] MEDS: DONEPEZIL HCL 5 MG TABLET PO (20:41)
[2022-02-16 20:43] LABS: Glucose Point of Care 259 mg/dl (65-105)
[2022-02-17] VITALS (7 sets, daily range): BP systolic 110–116; BP diastolic 46–48; PULSE 77–93; RESP 18–80; TEMP 36.3–36.4; O2SAT 93–100
[2022-02-17 06:22] LABS: Hematocrit 34.5 % (42.0-52.0); Mean Corpuscular Hemoglobin 27.5 pg (26-34); Mean Platelet Volume 11.2 fl (7.4-10.4); Platelet Count Result 150 k/mm3 (150-375); Red Blood Count 3.63 M/mm3 (4.6-6.20); Red Cell Distribution Width 22.3 % (11.5-14.5); White Blood Count 4.8 K/mm3 (4.5-10.0)
[2022-02-17 06:31] LABS: Anion Gap 8 mmol/L (8-16); Blood Urea Nitrogen 33 mg/dL (9-20); Calcium 8.6 mg/dL (8.4-10.2); Carbon Dioxide 36 mmol/L (22-30); Chloride 96 mmol/L (98-107); Estimated CRCL calculation 62 ml/min; Estimated Glomerular Filt Rate > 60; Glucose 137 mg/dL (65-110); Magnesium 1.6 mg/dL (1.6-2.3); Potassium 3.4 mmol/L (3.4-5.0); Sodium 140 mmol/L (137-145)
[2022-02-17] MEDS: PREGABALIN (*CRX) 75 MG CAPSULE PO (08:33)
[2022-02-17] MEDS: ENOXAPARIN 40 MG/0.4 ML SYRINGE SUB-Q (08:33)
[2022-02-17] MEDS: FERROUS SULFATE 324 MG TABLET PO (08:33)
[2022-02-17] MEDS: BUMETANIDE 1 MG TABLET 2 MG PO (08:33)
[2022-02-17] MEDS: EMPAGLIFLOZIN 10 MG TABLET PO (08:33)
[2022-02-17] MEDS: TAMSULOSIN HCL 0.4 MG CAPSULE PO (08:33)
[2022-02-17] MEDS: MAGNESIUM OXIDE 400 MG TABLET PO (08:33)
--- NOTE | 2022-02-17 08:36 | PCNWS ---
Weekly nutritional screen. Patient is tolerating current diet with adequate intake. No weight loss reported. No nutritional needs at this time.
[2022-02-17 09:05] LABS: Glucose Point of Care 171 mg/dl (65-105)
[2022-02-17 12:07] LABS: Glucose Point of Care 197 mg/dl (65-105)
--- NOTE | 2022-02-17 14:09 | PM.DS ---
DS: Admitting Diagnosis Discharge Date 02/17/22 Admitting Diagnosis Low urine output DS: Discharge Diagnosis Discharge Diagnosis (1) Acute on chronic diastolic (congestive) heart failure: Code(s): I50.33 - Acute on chronic diastolic (congestive) heart failure Status: Acute (2) Acute kidney injury: Code(s): N17.9 - Acute kidney failure, unspecified Status: Acute (3) Hyperkalemia: Code(s): E87.5 - Hyperkalemia Status: Acute (4) Pulmonary hypertension: Code(s): I27.20 - Pulmonary hypertension, unspecified Status: Acute (5) Chronic respiratory failure with hypoxia, on home oxygen therapy: Code(s): J96.11 - Chronic respiratory failure with hypoxia; Z99.81 - Dependence on supplemental oxygen Status: Acute (6) Obstructive sleep apnea: Code(s): G47.33 - Obstructive sleep apnea (adult) (pediatric) Status: Acute DS: Summary Hospital Course Hospital Course: # Acute on chronic diastolic (congestive) heart failure:Patient presented with c/o unable to urinate, patient with mildly reduced EF of 45-50% also reported increasing [place] [address], and scrotal edema unable to urinate, patient being diuresed with Bumetanide 2mg IV BID and his Scr and K are have improved, his Scr has improved 1.1 compared to 1.5 upon arrival,? # VALENTINE: mild. resolved. # Low urine output: inabliity to urinate, partly due to scrotal edema. unabl eto place paz. urologist consutled and paz placed. with diuresis his scrotal edema improved and paz discontinued during the hospital stay. he will continue to follow ith urologist as op saravia. # UTI: with urinary retention. urine culture is growing? Klebsiella pneumonia which is ESBL 2 strains. ? ertapenem to cover for both his total 7 days course .? he completed the course of treatment during the hospital stay. # Pulmonary hypertension: # Chronic respiratory failure with hypoxia on home oxyge. # MALLORY on CPAP # Urinary retention:? Presented to the ER with decreased urine output with a and half.? Paz catheter was attempted in the ER was unsuccessful but deemed not necessary as he was voiding on his own but had urinary frequency and voiding between 50-100 mL at a time.? Bladder scan in the ER showed at least 400 mils in the bladder and hence urology was consulted and catheter was placed.? He has been intermittently catheterize throughout his past admission.? Last admission he had a void trial done and subsequently had catheter removed and was discharged subsequently coming back with inability to void.? Partly this is also because of an ongoing scrotal edema that he has which seems to be much better now.? He does not necessarily have chronic urinary retention and hopefully will be able to come off the Paz catheter.? Since his scrotal edema seems to be quite improved now and with his recent urinary tract infection will attempt to do a void trial again this admission. discussed, agreeable. paz removed and jose to urinate without paz in place. # Acute on chronic congestive heart failure diastolic . contineubumex and also on spironolactone at home. # chronic respiratory failure with hypoxia on home oxygen 3 L # Type 2 diabetes mellitus A1c 5.8 # Atrial fibrillation not on anticoagulation due to recurrent episodes of epistaxis # Liver cirrhosis unclear etiology # Chronic anemia # Code status full code # DVT prophylaxis Lovenox Time Spent with Patient Time attestation: Total time spent providing and/or coordinating discharge services: Exam Narrative: ?moderately obese Patient is comfortable, NAD HEENT: eyes are clear and none icteric LUNGS: normal respiratory effort Clear to auscultation bilaterally ABD:? obese distended Lower extremities: no edema cyanosis or clubbing SKIN: nonjaundiced Neuro: grossly intact. Scrotal swelling improving DS: Data Data Completed and Pending Labs on day of discha
[2022-02-17] MEDS: ERTAPENEM SODIUM 1 GM in SODIUM CHLORIDE 0.9% IV 50 ML 100 ML IVPB (15:07)
== END 2022-02-17 16:20 | disposition hospice, home (50) | DRG 729 ==
LOC: ANHED 15:06 → ANH3MED 18:39
PROVIDERS: Physician Assistant; Admitting Provider Family Medicine; Emergency Provider Emergency Medicine; PCP Internal Medicine; Visit Provider Internal Medicine
DX: N50.89 Other specified disorders of the male genital organs (principal); I50.33 Acute on chronic diastolic (congestive) heart failure; J96.11 Chronic respiratory failure with hypoxia; N17.9 Acute kidney failure, unspecified; N39.0 Urinary tract infection, site not specified; B96.1 Klebsiella pneumoniae [K. pneumoniae] as the cause of diseases classified elsewhere; Z20.822 Contact with and (suspected) exposure to COVID-19; D50.9 Iron deficiency anemia, unspecified; E66.9 Obesity, unspecified; E87.5 Hyperkalemia; E11.9 Type 2 diabetes mellitus without complications; G89.29 Other chronic pain; G47.33 Obstructive sleep apnea (adult) (pediatric); I25.10 Atherosclerotic heart disease of native coronary artery without angina pectoris; I27.20 Pulmonary hypertension, unspecified; I11.0 Hypertensive heart disease with heart failure; I48.0 Paroxysmal atrial fibrillation; J44.9 Chronic obstructive pulmonary disease, unspecified; K21.9 Gastro-esophageal reflux disease without esophagitis; K74.60 Unspecified cirrhosis of liver; M19.90 Unspecified osteoarthritis, unspecified site; N40.1 Benign prostatic hyperplasia with lower urinary tract symptoms; R35.0 Frequency of micturition; R33.8 Other retention of urine; Z99.81 Dependence on supplemental oxygen; Z68.33 Body mass index [BMI] 33.0-33.9, adult; Z79.84 Long term (current) use of oral hypoglycemic drugs; Z99.89 Dependence on other enabling machines and devices; Z86.73 Personal history of transient ischemic attack (TIA), and cerebral infarction without residual deficits; Z98.41 Cataract extraction status, right eye; Z98.42 Cataract extraction status, left eye
CPT/HCPCS: 36415; 71045; 80048; 80053; 81001; 82948; 83735; 83880; 84484; 85025; 85027; 85055; 85610; 85730; 87077; 87086; 87088; 87186; 87636; 93005; 94640; 96372; 96374; 96375; 96376; 97110; 97116; 97161; 97165; 99285; A9270; G0378; J0610; J0696; J1335; J1650; J1815; J3475

== ENCOUNTER 2022-06-08 09:42 | Observation (INO) | payer MEDICARE, MEDICAID, SELFPAY ==
[2022-06-08] VITALS (14 sets, daily range): BP systolic 124–153; BP diastolic 60–91; PULSE 63–117; RESP 14–20; TEMP 36.3–36.6; O2SAT 97–100; BMI 27.6
--- NOTE | ~2022-06-08 | XR_ITS ---
EXAMINATION: XR chest 2V DATE: 06/08/2022 10:30 INDICATION: Weakness TECHNIQUE: AP and lateral views of the chest are obtained. COMPARISON: 02/07/2022 FINDINGS: The lungs are free of acute opacities. There is mild scarring in the left lung base. No ple ural effusion or pneumothorax. The cardiomediastinal silhouette is normal. There is moderate thoracic spondylosis. There is advanced osteoarthritis of the glenohumeral joints. IMPRESSION: 1. No acute cardiopulmonary abnormality. Reviewed, dictated and finalized at location A.
--- NOTE | ~2022-06-08 | CT_ITS ---
EXAMINATION: CT brain wo con DATE: 06/09/2022 10:11 INDICATION: Weakness. TECHNIQUE: Computed tomography (CT) of the head was performed without intravenous contrast. The mA wa s adjusted according to patient size. Iterative reconstruction technique was employed. The dose-lengt h product was 756.67 mGy-cm. COMPARISON: Head CT 03/08/2021 FINDINGS: There is an old infarct in right occipital lobe. There are scattered areas of low attenuati on in the cerebral white matter. There is a 13 mm calcified extra-axial mass at the anterior falx on the right, consistent with a meningioma. There is no intracranial hemorrhage or acute ischemic infarc t. The ventricles are normal in size. There is mucosal thickening in the paranasal sinuses. There is thickening sclerosis of right maxillary sinus, consistent with chronic sinusitis. There are likely ch anges of ocular lens replacement surgeries. There are trace bilateral mastoid effusions. IMPRESSION: 1. Old infarct in the right occipital lobe. 2. Worsened moderate nonspecific cerebral white matter disease, which likely represents chronic small vessel ischemic disease. 3. 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 Reviewed, dictated and finalized at location A. IMPRESSION: 1. Old infarct in the right occipital lobe. 2. Worsened moderate nonspecific cerebral white matter disease, which likely re presents chronic small vessel ischemic disease. 3. 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
--- NOTE | 2022-06-08 10:02 | ECG_ITS ---
Measurements Intervals Gratis Rate: 73 P: WV: 0 QRS: 32 QRSD: 116 T: -46 QT: 421 QTc: 466 Interpretive Statements ATRIAL FLUTTER/TACHYCARDIA WITH NORMAL VENTRICULAR RESPONSE INCOMPLETE LEFT BUNDLE BRANCH BLOCK LOW QRS VOLTAGE IN LIMB LEADS CANNOT RULE OUT SEPTAL INFARCT, AGE INDETERMINATE ST-T WAVE ABNORMALITY IN INFERIOR LEADS- CONSIDER ISCHEMIA BASELINE ARTIFACT- I, II, III, AVL, AVF ABNORMAL ECG COMPARED TO ECG 02/07/2022 17:23:22 NO SIGNIFICANT CHANGES Electronically Signed On 06-08-2022 15:48:39 CDT by Waqas Shankar D.O.
[2022-06-08 10:27] LABS: Basophils Percent Auto 0.5 % (0.2-1.2); Eosinophils Absolute Auto 0.2 K/mm3 (0-0.3); Eosinophils Percent Auto 3.2 % (0-4.4); Hemoglobin 10.2 g/dL (14.0-18.0); Immature Granulocyte Absolute 0.07 K/mm3 (0.00-0.031); Immature Granulocyte Percent A 1.2 % (0-0.5); Lymphocytes Absolute Auto 0.69 K/mm3 (0.9-3.2); Lymphocytes Percent Auto 11.5 % (18.3-44.2); Mean Corpuscular HGB Conc 29.1 g/dl (32-36); Mean Corpuscular Volume 89.1 fl (80-100); Mean Platelet Volume 10.8 fl (7.4-10.4); Monocytes Absolute Auto 0.7 K/mm3 (0.1-0.6); Monocytes Percent Auto 11.6 % (2.6-8.5); Neutrophils Absolute Auto 4.3 K/mm3 (1.3-6.7); Platelet Count Result 200 k/mm3 (150-375); Red Blood Count 3.93 M/mm3 (4.6-6.20); Red Cell Distribution Width 19.9 % (11.5-14.5)
[2022-06-08 10:35] LABS: Prothrombin Time 12.6 Seconds (11.1-14.7)
[2022-06-08 10:36] LABS: Partial Thromboplastin Time 36.1 SECONDS (22.3-36.8)
[2022-06-08 10:41] LABS: Alanine Aminotransferase 19 U/L (6-50); Albumin Level 3.5 g/dL (3.5-5.1); Alkaline Phosphatase 136 U/L (38-126); Anion Gap 7 mmol/L (8-16); Aspartate Amino Transferase 35 U/L (17-59); Bilirubin,Total 0.4 mg/dL (0.2-1.3); Blood Urea Nitrogen 30 mg/dL (9-20); Calcium 8.3 mg/dL (8.4-10.2); Carbon Dioxide 30 mmol/L (22-30); Chloride 99 mmol/L (98-107); Estimated CRCL calculation 68 ml/min; Estimated Glomerular Filt Rate > 60; Glucose 134 mg/dL (65-110); Sodium 136 mmol/L (137-145)
[2022-06-08 10:56] LABS: Troponin I 0.016 ng/mL (0.000-0.034)
[2022-06-08 11:07] LABS: Anisocytosis 1+ (NORMAL); Platelet Estimate Adequate (Adequate); Poikilocytosis 1+ (NORMAL); Schistocytes None Seen (NORMAL)
--- NOTE | 2022-06-08 11:49 | ED.GENADULT ---
HPI - General Adult General Chief complaint: Weakness Stated complaint: weakness Time Seen by Provider: 06/08/22 11:48 Source: patient and EMS Mode of arrival: EMS Limitations: no limitations History of Present Illness HPI narrative: 81 years old white female came from home by ambulance because of general weakness that started over 1 month ago and gradually getting worse. Patient unable to lift both arms above his head or move both legs. This morning getting get out of bed without wardrobe assistant and unable to take care of himself at home. Patient agreed with custodial placement. He denies any fever, chills, nausea, vomiting, chest pain, shortness of breath, headache, focal neurodeficits, urinary symptoms, diarrhea, constipation abdominal pain. Related Data Home Medications Medication Instructions Recorded Confirmed pregabalin 75 mg capsule (Lyrica) 75 mg PO Q12H 10/24/20 06/08/22 tamsulosin 0.4 mg capsule (Flomax) 0.4 mg PO DAILY 10/24/20 06/08/22 donepezil 5 mg tablet (Aricept) 5 mg PO HS 11/12/21 06/08/22 lidocaine-prilocaine 2.5 %-2.5 % 1 applic PRN PRN Pain 11/12/21 06/08/22 topical cream metformin 1,000 mg tablet 1,000 mg PO BID 11/12/21 06/08/22 ondansetron HCl 4 mg tablet 4 mg PO TID PRN Nausea 11/12/21 06/08/22 meclizine 12.5 mg tablet 12.5 mg PO TID PRN Dizziness 12/16/21 06/08/22 polyethylene glycol 3350 17 gram 17 g PO DAILY 06/08/22 06/08/22 oral powder packet (Miralax) sennosides 8.6 mg-docusate sodium 1 tab-cap PO DAILY PRN Pain 06/08/22 06/08/22 50 mg capsule torsemide 20 mg tablet 40 mg PO BID 06/08/22 06/08/22 Allergies Allergy/AdvReac Type Severity Reaction Status Date / Time No Known Allergies Allergy Verified 06/08/22 09:52 Review of Systems Review of Systems: All systems reviewed & are unremarkable except as noted in HPI and below PMFSH Past Medical History Medical History Arthritis Benign prostatic hyperplasia Cerebrovascular accident 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 Chronic anemia Chronic pain Patient had a pain pump inserted in February 2019. Chronic respiratory failure with hypoxia, on home oxygen therapy Baseline oxygen requirement is 3 L nasal cannula. Congestive heart failure Echocardiogram February 2021: EF 55-60% (improved from prior echo of 45%) left ventricular septal wall motion abnormal related to bundle-branch block, grade 2 diastolic dysfunction, severe pulmonary hypertension with RVSP of 74, severe enlargement of the right atrium Coronary artery disease Gastroesophageal reflux disease History of bleeding peptic ulcer Hypertension Iron deficiency anemia Receives frequent iron infusions. Moderate pulmonary hypertension Estimated pulmonary arterial systolic pressure was 54 mmHg on echocardiogram dated 10/25/2020. Obstructive sleep apnea Paroxysmal atrial fibrillation Pseudobulbar affect Spinal stenosis Type 2 diabetes mellitus Hemoglobin A1c was 6.3% on 10/25/2020. Surgical History Surgical History History of bilateral cataract extraction History of hernia repair 3 Family History Family History Father Acute myocardial infarction Sibling Acute myocardial infarction Brain aneurysm Other No problems noted. Mother Breast cancer Social History Social History (Updated 06/08/22 @ 18:39 by Kerry Castillo NP) Social History: He has one child and is . He lives alone . His granddaughter comes over for several hours each day to help him. 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 Healthcare power of trial attorney: Lennie Cruz, granddaughter. Code status: Full code. Smoking packs per day: 3 Smoking cigarettes per day: 60.0 Years smoked: 30 Smoking pack-years: 90.00 Smoking status: Former smoker Tobacco type: cigarettes Second hand t
[2022-06-08] MEDS: SODIUM CHLORIDE 0.9% IV 500 ML IV CONT (12:03)
[2022-06-08 12:59] LABS: Erythrocyte Sedimentation Rate 14 mm/hr (0-20)
[2022-06-08 13:27] LABS: Appearance Urine Clear (Clear); Bilirubin Urine Negative (Negative); Blood Urine Negative (Negative); Color Urine Yellow (Yellow); Glucose Urine UA 3+ mg/dL (Negative); Ketones Urine Trace mg/dL (Negative); Leukocyte Esterase Ur Negative LEU/UL (Negative); Nitrate Urine Negative (Negative); Protein Urine Negative (Negative); Specific Grav Ur 1.025 (1.001-1.035); Urobilinogen Urine 0.2 mg/dL (<2.0)
[2022-06-08 13:32] LABS: Add Urine Microscopic? NO
[2022-06-08 14:15] LABS: Troponin I 0.014 ng/mL (0.000-0.034)
--- NOTE | 2022-06-08 14:32 | PM.IMHP ---
H&P: HPI History of Present Illness Date/Time: 06/08/22 14:32 Chief Complaint: Weakness Narrative: This is an 81-year-old male patient who lives home alone. He is very hard of hearing and having difficulty during this interview. The patient stated that he has been weak for the last month and is gradually getting worse. The patient stated he was unable to lift his arms over his head today. His granddaughter currently is over and helps him several hours today but it has been more difficult recently. The patient was having difficulty getting out of bed today without shop assistant. The patient fears that he will not be able to take care of himself at home. He does not believe that he will be able does live alone anymore. He has agreed to a usp placement. He denies any fever or chills. No nausea vomiting or diarrhea. He does have a large ventral hernia to abdomen but has no complaints of discomfort. It is soft and nontender. H&H is 10.2 and 35.0 which is his baseline. Sodium 136. Troponins are nonreactive x2. Urine has 3+ glucose. Blood glucose 134. Chest x-ray was read as no acute cardiopulmonary abnormality. The patient is being admitted to observation status on the date of service is 05/11/2022. Review of Systems Review of Systems: All systems reviewed & are unremarkable except as noted in HPI and below Constitutional: Constitutional: Reports as per HPI and Reports no additional constitutional complaints Eyes: Eyes: Reports as per HPI and Reports no additional eye complaints ENT: Reports system reviewed and no additional complaints, except as documented and Reports Normal hearing present Cardiovascular: Cardiovascular: Reports no additional cardiovascular complaints Respiratory: Respiratory: Reports no additional respiratory complaints and Reports no additional respiratory complaints Gastrointestinal: Gastrointestinal: Reports as per HPI and Reports no additional gastrointestinal complaints Musculoskeletal: Musculoskeletal: Reports no additional musculoskeletal complaints Integumentary/Breasts: Skin/Breast: Reports system reviewed and no additional complaints, except as docu and Reports as per HPI Neurologic: Reports system reviewed and no additional complaints, except as documented, Reports as per HPI and Reports Normal hearing present Psychiatric: Psychiatric: Reports no additional psychiatric complaints and Reports as per HPI Endocrine: Endocrine: Reports no additional endocrine complaints Hematologic/Lymphatic: Hematologic/Lymphatic: Reports no additional hematologic/lymphatic complaints Allergic/Immunologic: Allergic/Immunologic: Reports no additional allergic/immunologic complaints [facility] Past Medical History Medical History Arthritis Benign prostatic hyperplasia Cerebrovascular accident 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 Chronic anemia Chronic pain Patient had a pain pump inserted in February 2019. Chronic respiratory failure with hypoxia, on home oxygen therapy Baseline oxygen requirement is 3 L nasal cannula. Congestive heart failure Echocardiogram February 2021: EF 55-60% (improved from prior echo of 45%) left ventricular septal wall motion abnormal related to bundle-branch block, grade 2 diastolic dysfunction, severe pulmonary hypertension with RVSP of 74, severe enlargement of the right atrium Coronary artery disease Gastroesophageal reflux disease History of bleeding peptic ulcer Hypertension Iron deficiency anemia Receives frequent iron infusions. Moderate pulmonary hypertension Estimated pulmonary arterial systolic pressure was 54 mmHg on echocardiogram dated 10/25/2020. Obstructive sleep apnea Paroxysmal atrial fibrillation Pseudobulbar affect Spinal stenosis Type 2 diabetes mellitus Hemoglobin A1c was 6.3% on 10/25/2020. Surgical History Surgical History (Reviewed 06/08/22 @ 18:35 by Byron
--- NOTE | 2022-06-08 15:28 | ADMGEN ---
This patient, Zack Orellana, was admitted to 3 Med Surg Room [id number]. Patient/family oriented to hospital policies and general routines including ID bracelet, bed and alarms, visiting hours, pain management, procedures, bathroom and other care routines, personal items, smoking policy, room service/diet, and visiting hours. Information on how to activate the Rapid Response Team has been discussed. Patient/Family are encouraged to report perceived risks to care and to ask questions if they do not understand what they are told or what they should do.
[2022-06-08] MEDS: ACETAMINOPHEN 325 MG TABLET 650 MG PO (18:45)
[2022-06-08 19:28] LABS: Influenza A QL RT-PCR Negative (Negative); Influenza B QL RT-PCR Negative (Negative); SARS-CoV-2 RNA PCR Negative
[2022-06-08] MEDS: DONEPEZIL HCL 5 MG TABLET PO (22:31)
[2022-06-08] MEDS: PREGABALIN (*CRX) 75 MG CAPSULE PO (22:31)
[2022-06-08] MEDS: MECLIZINE HCL 12.5 MG TABLET PO (22:31)
[2022-06-09 03:09] LABS: Glucose Point of Care 148 mg/dl (65-105)
[2022-06-09 05:43] VITALS: BP 126/72; PULSE 87; RESP 18; TEMP 36.4; O2SAT 99
[2022-06-09 06:50] LABS: Basophils Percent Auto 0.3 % (0.2-1.2); Eosinophils Absolute Auto 0.2 K/mm3 (0-0.3); Eosinophils Percent Auto 3.4 % (0-4.4); Hematocrit 35.4 % (42.0-52.0); Hemoglobin 10.2 g/dL (14.0-18.0); Immature Granulocyte Absolute 0.06 K/mm3 (0.00-0.031); Immature Granulocyte Percent A 0.9 % (0-0.5); Lymphocytes Absolute Auto 0.92 K/mm3 (0.9-3.2); Lymphocytes Percent Auto 13.2 % (18.3-44.2); Mean Corpuscular HGB Conc 28.8 g/dl (32-36); Mean Corpuscular Volume 90.3 fl (80-100); Mean Platelet Volume 11.3 fl (7.4-10.4); Monocytes Absolute Auto 0.7 K/mm3 (0.1-0.6); Monocytes Percent Auto 10.3 % (2.6-8.5); Neutrophils Percent Auto 71.9 % (45.5-73.1); Platelet Count Result 195 k/mm3 (150-375); Red Blood Count 3.92 M/mm3 (4.6-6.20); Red Cell Distribution Width 20.1 % (11.5-14.5)
[2022-06-09 07:01] LABS: Lactic Acid Reflex 0.8 mmol/L (0.7-2.0)
[2022-06-09 07:03] LABS: Alanine Aminotransferase 16 U/L (6-50); Albumin Level 3.4 g/dL (3.5-5.1); Alkaline Phosphatase 118 U/L (38-126); Anion Gap 3 mmol/L (8-16); Aspartate Amino Transferase 29 U/L (17-59); Bilirubin,Total 0.4 mg/dL (0.2-1.3); Blood Urea Nitrogen 19 mg/dL (9-20); Calcium 8.3 mg/dL (8.4-10.2); Carbon Dioxide 32 mmol/L (22-30); Chloride 99 mmol/L (98-107); Estimated CRCL calculation 92 ml/min; Estimated Glomerular Filt Rate > 60; Glucose 98 mg/dL (65-110); Magnesium 1.5 mg/dL (1.6-2.3); Potassium 3.8 mmol/L (3.4-5.0); Sodium 134 mmol/L (137-145)
[2022-06-09 07:25] LABS: Anisocytosis 2+ (NORMAL); Hypochromasia 1+ (NORMAL); Platelet Estimate Adequate (Adequate)
[2022-06-09 07:26] LABS: Ovalocytes 1+ (NORMAL); Schistocytes None Seen (NORMAL)
--- NOTE | 2022-06-09 07:49 | PC.NURSE ---
Pt c/o pain this am Has chronic pain. Received tylenol last evening with no relief per pt . Has implanted pain pump with no orders to give pain medication through device. This nurse asked charge nurse about procedure to fill pain pump. Informed the staff do not perform here. Report given to next shift RN to follow up on pain relief measures.
[2022-06-09 07:50] LABS: Hemoglobin A1C 5.1 % (<5.7)
[2022-06-09 08:00] VITALS: BP 133/60; PULSE 84; PULSE 87; RESP 16; RESP 18; TEMP 36.6; O2SAT 98; O2SAT 99
[2022-06-09] MEDS: PREGABALIN (*CRX) 75 MG CAPSULE PO ×2 (08:36→20:30)
[2022-06-09] MEDS: ACETAMINOPHEN 325 MG TABLET 650 MG PO ×2 (08:36→23:01)
[2022-06-09] MEDS: EMPAGLIFLOZIN 10 MG TABLET PO (08:38)
[2022-06-09] MEDS: BUMETANIDE 1 MG TABLET 2 MG PO ×2 (08:38→18:39)
[2022-06-09] MEDS: polyethylene glycoL 3350 17 GM POWD.PACK PO (08:39)
[2022-06-09] MEDS: MAGNESIUM OXIDE 400 MG TABLET PO ×2 (08:39→18:39)
[2022-06-09] MEDS: SPIRONOLACTONE 25 MG TABLET PO ×2 (08:39→18:40)
[2022-06-09] MEDS: FERROUS SULFATE 324 MG TABLET PO ×2 (08:39→18:39)
[2022-06-09] MEDS: TAMSULOSIN HCL 0.4 MG CAPSULE PO (08:39)
[2022-06-09 09:44] LABS: Glucose Point of Care 125 mg/dl (65-105)
--- NOTE | 2022-06-09 10:07 | PCOTNOTE ---
Per Dr. Varela bedrest orders can be removed in order for Therapy evaluations to be completed. Will remove bedrest.
[2022-06-09 12:39] LABS: Glucose Point of Care 138 mg/dl (65-105)
--- NOTE | 2022-06-09 15:14 | PM.IMPN ---
Progress Note: A&P Assessment and Plan (1) Weakness: Code(s): R53.1 - Weakness Status: Acute Assessment and Plan: PT OT evaluation was greatly be appreciated The patient's granddaughter has been coming several times a day to help amount but is just not enough the patient is not able to get out of bed by himself. The patient stated that he is having difficulty raising his arms. ct head with no acute intracranial abnormality. The patient was negative for any type of infectious process at this time. The patient uses a walker at home and was having difficulty moving the walker. The patient stated that he cannot lift the walker up to walk with it. The patient could possibly benefit from a wheeled walker versus a traditional walker without wheels. The patient stated that he can no longer take care of himself at home. covid negative. (2) Atrial flutter: Code(s): I48.92 - Unspecified atrial flutter Status: Acute Assessment and Plan: Rate controlled (3) Obstructive sleep apnea: Code(s): G47.33 - Obstructive sleep apnea (adult) (pediatric) Status: Acute Assessment and Plan: Continue with home settings for CPAP/BiPAP (4) CHF (congestive heart failure): Code(s): I50.9 - Heart failure, unspecified Status: Acute Assessment and Plan: Continue with Jardiance Continue Bumex unclear if the patient is also on torsemide Continue with Aldactone Last echo 12/17/2021. Complete two-dimensional, color flow and Doppler transthoracic echocardiogram is performed. ? 2. Left ventricular chamber dimension is mildly enlarged. ? 3. Left ventricular systolic function is mildly reduced, estimated at 45-50%. ? 4. Left ventricular septal wall motion is abnormal with septal motion related to bundle branch block. ? 5. The left ventricular diastolic function is abnormal. ? 6. E/e' 10 is mildly elevated. ? 7. Atrial fib/flutter. ? 8. Right ventricular systolic function is reduced and with abnormal TAPSE 1.2 cm. ? 9. Left atrial chamber dimension is moderately enlarged. ? 10. Right atrial chamber dimension is mildly enlarged. ? 11. There is mild aortic valve sclerosis. ? 12. The mitral valve has mildly calcified annulus. ? 13. There is mild mitral valve regurgitation. ? 14. There is mild tricuspid valve regurgitation. ? 15. Severe pulmonary hypertension, estimated pulmonary arterial systolic pressure is 63 mmHg. ? 16. Dilated inferior vena cava with <50% collapse upon inspiration consistent with significantly elevated right atrial pressure, 15 mmHg. (5) BPH (benign prostatic hyperplasia): Code(s): N40.0 - Benign prostatic hyperplasia without lower urinary tract symptoms Status: Acute Assessment and Plan: Continue with Flomax (6) Chronic respiratory failure with hypoxia, on home oxygen therapy: Code(s): J96.11 - Chronic respiratory failure with hypoxia; Z99.81 - Dependence on supplemental oxygen Status: Acute (7) Hypertension: Code(s): I10 - Essential (primary) hypertension Status: Chronic Assessment and Plan: Continue with diuretics (8) CAD (coronary artery disease): Code(s): I25.10 - Atherosclerotic heart disease of [place] coronary artery without angina pectoris Status: Acute Assessment and Plan: Continue with home medications (9) Chronic anemia: Code(s): D64.9 - Anemia, unspecified Status: Acute Assessment and Plan: Continue with ferrous sulfate. H&H is stable. Continue to monitor. Subjective Date/time seen: 06/09/22 15:14 Interval history: History reviewed chart reviewed. Fell at home mechanical. Generalized weakness. Working with therapy today. Denies chest pain or shortness of breath. Review of Systems Review of Systems: All systems reviewed & are unremarkable except as noted in HPI and below Exam Narrative: General appearance: Well-developed, well-nourished, looks weak Sk
[2022-06-09 16:00] VITALS: BP 119/71; PULSE 84; RESP 16; TEMP 36.3; O2SAT 99
[2022-06-09 18:52] LABS: Glucose Point of Care 124 mg/dl (65-105)
[2022-06-09] MEDS: DONEPEZIL HCL 5 MG TABLET PO (20:30)
[2022-06-09 21:28] VITALS: BP 125/70; PULSE 87; RESP 14; TEMP 36.4; O2SAT 100
[2022-06-10 00:05] LABS: Glucose Point of Care 164 mg/dl (65-105)
[2022-06-10] MEDS: HYDROcodone/acetaminophen (*CRX) 5-325 MG TABLET 1 TAB PO ×2 (00:36→21:35)
[2022-06-10 05:29] VITALS: BP 126/63; PULSE 126; RESP 14; TEMP 36.1; O2SAT 100
[2022-06-10 07:43] LABS: Glucose Point of Care 101 mg/dl (65-105)
[2022-06-10] MEDS: PREGABALIN (*CRX) 75 MG CAPSULE PO ×2 (09:19→21:35)
[2022-06-10] MEDS: SENNA/DOCUSATE SODIUM TABLET 1 TAB PO (09:20)
[2022-06-10] MEDS: EMPAGLIFLOZIN 10 MG TABLET PO (09:20)
[2022-06-10] MEDS: TAMSULOSIN HCL 0.4 MG CAPSULE PO (09:20)
[2022-06-10] MEDS: MAGNESIUM OXIDE 400 MG TABLET PO ×2 (09:20→17:22)
[2022-06-10] MEDS: BUMETANIDE 1 MG TABLET 2 MG PO ×2 (09:20→17:21)
[2022-06-10] MEDS: SPIRONOLACTONE 25 MG TABLET PO ×2 (09:21→17:22)
[2022-06-10] MEDS: polyethylene glycoL 3350 17 GM POWD.PACK PO (09:21)
[2022-06-10] MEDS: FERROUS SULFATE 324 MG TABLET PO ×2 (10:29→17:21)
[2022-06-10] MEDS: ACETAMINOPHEN 325 MG TABLET 650 MG PO (11:01)
[2022-06-10 12:02] LABS: Glucose Point of Care 210 mg/dl (65-105)
[2022-06-10] MEDS: INSULIN ASPART (*BKC) 100 UNITS/ML SUB-Q (12:27)
--- NOTE | 2022-06-10 12:44 | P.CDI_ITS ---
CDI Query Clarified Diagnosis Clarified Diagnosis: CHF noted in the assessment and plan. Documented history of CHF. Pt receiving Bumex and Jardiance. Bumex listed as a home medication. Please specify type and acuity of heart failure if known. * Acute * Chronic * Acute on Chronic * Unknown * Systolic * Diastolic * Combined Systolic and Diastolic * Unknown <Dottie Ellison RN - Last Filed: 06/10/22 12:47> Provider Comments chronic combined systolic and diastolic <Live Varela MD - Last Filed: 06/10/22 15:18>
[2022-06-10 14:00] VITALS: BP 112/70; PULSE 81; RESP 20; TEMP 35.9; O2SAT 100
--- NOTE | 2022-06-10 15:15 | PM.IMPN ---
Progress Note: A&P Assessment and Plan (1) Weakness: Code(s): R53.1 - Weakness Status: Acute Assessment and Plan: PT OT evaluation was greatly be appreciated The patient's granddaughter has been coming several times a day to help amount but is just not enough the patient is not able to get out of bed by himself. The patient stated that he is having difficulty raising his arms. ct head with no acute intracranial abnormality. The patient was negative for any type of infectious process at this time. The patient uses a walker at home and was having difficulty moving the walker. The patient stated that he cannot lift the walker up to walk with it. The patient could possibly benefit from a wheeled walker versus a traditional walker without wheels. The patient stated that he can no longer take care of himself at home. covid negative. (2) Atrial flutter: Code(s): I48.92 - Unspecified atrial flutter Status: Acute Assessment and Plan: Rate controlled (3) Obstructive sleep apnea: Code(s): G47.33 - Obstructive sleep apnea (adult) (pediatric) Status: Acute Assessment and Plan: Continue with home settings for CPAP/BiPAP (4) CHF (congestive heart failure): Code(s): I50.9 - Heart failure, unspecified Status: Acute Assessment and Plan: Continue with Jardiance Continue Bumex unclear if the patient is also on torsemide Continue with Aldactone Last echo 12/17/2021. Complete two-dimensional, color flow and Doppler transthoracic echocardiogram is performed. ? 2. Left ventricular chamber dimension is mildly enlarged. ? 3. Left ventricular systolic function is mildly reduced, estimated at 45-50%. ? 4. Left ventricular septal wall motion is abnormal with septal motion related to bundle branch block. ? 5. The left ventricular diastolic function is abnormal. ? 6. E/e' 10 is mildly elevated. ? 7. Atrial fib/flutter. ? 8. Right ventricular systolic function is reduced and with abnormal TAPSE 1.2 cm. ? 9. Left atrial chamber dimension is moderately enlarged. ? 10. Right atrial chamber dimension is mildly enlarged. ? 11. There is mild aortic valve sclerosis. ? 12. The mitral valve has mildly calcified annulus. ? 13. There is mild mitral valve regurgitation. ? 14. There is mild tricuspid valve regurgitation. ? 15. Severe pulmonary hypertension, estimated pulmonary arterial systolic pressure is 63 mmHg. ? 16. Dilated inferior vena cava with <50% collapse upon inspiration consistent with significantly elevated right atrial pressure, 15 mmHg. (5) BPH (benign prostatic hyperplasia): Code(s): N40.0 - Benign prostatic hyperplasia without lower urinary tract symptoms Status: Acute Assessment and Plan: Continue with Flomax (6) Chronic respiratory failure with hypoxia, on home oxygen therapy: Code(s): J96.11 - Chronic respiratory failure with hypoxia; Z99.81 - Dependence on supplemental oxygen Status: Acute (7) Hypertension: Code(s): I10 - Essential (primary) hypertension Status: Chronic Assessment and Plan: Continue with diuretics (8) CAD (coronary artery disease): Code(s): I25.10 - Atherosclerotic heart disease of [place] coronary artery without angina pectoris Status: Acute Assessment and Plan: Continue with home medications (9) Chronic anemia: Code(s): D64.9 - Anemia, unspecified Status: Acute Assessment and Plan: Continue with ferrous sulfate. H&H is stable. Continue to monitor. Plan chronic back pain on pain pump. Replace in IV morphine p.r.n. oral hydrocodone Subjective Date/time seen: 06/10/22 15:15 Interval history: no overnight events. Could not sleep. He gets extra pain medication to help him with his pain. No nausea vomiting working with therapy Review of Systems Review of Systems: All systems reviewed & are unremarkable except as noted in HPI and below Exam Narr
[2022-06-10 16:00] VITALS: BP 112/70; PULSE 81; RESP 20; TEMP 35.9; O2SAT 100
[2022-06-10 16:24] LABS: Glucose Point of Care 188 mg/dl (65-105)
[2022-06-10 19:25] VITALS: BP 126/55; PULSE 55; RESP 18; TEMP 36.5; O2SAT 100
[2022-06-10 20:00] VITALS: PULSE 55; RESP 18; O2SAT 100
[2022-06-10] MEDS: DONEPEZIL HCL 5 MG TABLET PO (21:35)
[2022-06-10 22:34] LABS: Glucose Point of Care 132 mg/dl (65-105)
[2022-06-11 03:13] VITALS: BP 137/80; PULSE 63; RESP 18; TEMP 36.4; O2SAT 94
[2022-06-11 08:04] LABS: Glucose Point of Care 122 mg/dl (65-105)
[2022-06-11] MEDS: HYDROcodone/acetaminophen (*CRX) 5-325 MG TABLET 1 TAB PO (09:00)
[2022-06-11] MEDS: PREGABALIN (*CRX) 75 MG CAPSULE PO (09:00)
[2022-06-11] MEDS: MECLIZINE HCL 12.5 MG TABLET PO (09:00)
[2022-06-11] MEDS: SPIRONOLACTONE 25 MG TABLET PO (09:01)
[2022-06-11] MEDS: EMPAGLIFLOZIN 10 MG TABLET PO (09:01)
[2022-06-11] MEDS: SENNA/DOCUSATE SODIUM TABLET 1 TAB PO (09:01)
[2022-06-11] MEDS: BUMETANIDE 1 MG TABLET 2 MG PO (09:01)
[2022-06-11] MEDS: MAGNESIUM OXIDE 400 MG TABLET PO (09:01)
[2022-06-11] MEDS: FERROUS SULFATE 324 MG TABLET PO (09:01)
[2022-06-11] MEDS: TAMSULOSIN HCL 0.4 MG CAPSULE PO (09:01)
--- NOTE | 2022-06-11 11:50 | PM.DS ---
DS: Admitting Diagnosis Discharge Date 06/11/2022 Admitting Diagnosis Weakness, failure to thrive DS: Summary Hospital Course Hospital Course: This is an 81-year-old male patient who lives home alone.? He is very hard of hearing and having difficulty during this interview.? The patient stated that he has been weak for the last month and is gradually getting worse.? The patient stated he was unable to lift his arms over his head today.? His granddaughter currently is over and helps him several hours today but it has been more difficult recently.? The patient fears that he will not be able to take care of himself at home.? His labs at the time of admission were normal. Chest x-ray was read as no acute cardiopulmonary abnormality.? Patient was admitted for placement. Continue with Jardiance Continue Bumex and torsemide Continue with Aldactone Last echo 12/17/2021. Complete two-dimensional, color flow and Doppler transthoracic echocardiogram is performed. ? 2. Left ventricular chamber dimension is mildly enlarged. ? 3. Left ventricular systolic function is mildly reduced, estimated at 45-50%. ? 4. Left ventricular septal wall motion is abnormal with septal motion related to bundle branch block. ? 5. The left ventricular diastolic function is abnormal. ? 6. E/e' 10 is mildly elevated. ? 7. Atrial fib/flutter. ? 8. Right ventricular systolic function is reduced and with abnormal TAPSE 1.2 cm. ? 9. Left atrial chamber dimension is moderately enlarged. ? 10. Right atrial chamber dimension is mildly enlarged. ? 11. There is mild aortic valve sclerosis. ? 12. The mitral valve has mildly calcified annulus. ? 13. There is mild mitral valve regurgitation. ? 14. There is mild tricuspid valve regurgitation. ? 15. Severe pulmonary hypertension, estimated pulmonary arterial systolic pressure is 63 mmHg. ? 16. Dilated inferior vena cava with <50% collapse upon inspiration consistent with significantly elevated right atrial pressure, 15 mmHg. Patient has been accepted at a halfway facility and is being discharged there in stable condition Time Spent with Patient Time attestation: Total time spent providing and/or coordinating discharge services:45m Exam Const: General: cooperative and comfortable Orientation/consciousness: patient oriented x3 HENMT: Head: normal to inspection Mouth: Yes Normal oral and palatal mucosa present Eyes: General: appearance normal, both eyes and all related structures Resp: Effort & Inspection: normal respiratory effort Auscultation: clear to auscultation bilaterally Cardio: Rate: regular rate Rhythm: regular rhythm Heart sounds: S1 normal heart sound present and S2 normal heart sound present GI: GI Palp: Yes Soft to palpation Auscultation: normal bowel sounds Skin: General skin exam: normal color and no rashes or lesions noted Neuro: General: patient oriented x3, no focal motor deficits and CN's II-XI intact bilaterally Speech: normal speech Extrem: General: full ROM Psych: Appearance: grossly normal DS: Data Data Completed and Pending Labs on day of discharge: Labs from last 24 hours 06/11/22 06/10/22 06/10/22 07:45 21:39 16:14 POC Capillary Glucose 122 H 132 H 188 H 06/10/22 11:45 POC Capillary Glucose 210 H Discharge Plan Discharge Discharging Clinician: Manan Campoverde Anticipated Discharge Date/Time: 06/11/22 11:47 Patient Disposition: SNF Activity: may shower Diet: heart healthy Stand Alone Forms: General Discharge Information Follow-up/Referrals: Benito,Michael Maldonado MD [Primary Care Provider] - Discharge Medications: Continued tamsulosin [Flomax] 0.4 mg capsule 0.4 mg PO DAILY pregabalin [Lyrica] 75 mg capsule 75 mg PO Q12H ondansetron HCl 4 mg tablet 4 mg PO TID PRN (Reason: Nausea) lidocaine-prilocaine 2.5-2.5 % cream 1 applic PRN PRN (Reason: Pain) Rx Instructions: APPLY TO PUMP SITE 1 HR BEFO
[2022-06-11 11:55] LABS: Glucose Point of Care 235 mg/dl (65-105)
[2022-06-11] MEDS: INSULIN ASPART (*BKC) 100 UNITS/ML SUB-Q (12:00)
[2022-06-11 13:04] LABS: EDCOVIDSCREEN Negative (Negative)
== END 2022-06-11 13:45 ==
LOC: ANHED 13:05 → ANH3MEDSUR 15:13
PROVIDERS: Nurse Practitioner; Admitting Provider Student in an Organized Health Care Education/Training Program; Emergency Provider Emergency Medicine; PCP Internal Medicine; Visit Provider Hospitalist
DX: R53.1 Weakness (principal); N40.0 Benign prostatic hyperplasia without lower urinary tract symptoms; I11.0 Hypertensive heart disease with heart failure; I50.42 Chronic combined systolic (congestive) and diastolic (congestive) heart failure; I48.92 Unspecified atrial flutter; Z20.822 Contact with and (suspected) exposure to COVID-19; H91.90 Unspecified hearing loss, unspecified ear; D64.9 Anemia, unspecified; R94.31 Abnormal electrocardiogram [ECG] [EKG]; J96.11 Chronic respiratory failure with hypoxia; Z99.81 Dependence on supplemental oxygen; D50.0 Iron deficiency anemia secondary to blood loss (chronic); I08.3 Combined rheumatic disorders of mitral, aortic and tricuspid valves; E11.9 Type 2 diabetes mellitus without complications; K21.9 Gastro-esophageal reflux disease without esophagitis; I27.20 Pulmonary hypertension, unspecified; G47.33 Obstructive sleep apnea (adult) (pediatric); I48.0 Paroxysmal atrial fibrillation; Z87.891 Personal history of nicotine dependence; Z86.73 Personal history of transient ischemic attack (TIA), and cerebral infarction without residual deficits; Z79.52 Long term (current) use of systemic steroids; Z79.84 Long term (current) use of oral hypoglycemic drugs; Z79.899 Other long term (current) drug therapy
CPT/HCPCS: 36415; 70450; 71046; 80053; 81003; 82948; 83036; 83605; 83735; 84443; 84484; 85025; 85610; 85652; 85730; 87426; 87636; 93005; 96360; 97110; 97161; 97165; 97530; 97535; 99285; A9270; C9803; G0378; J1815; J7040

== ENCOUNTER 2022-07-10 15:29 | Observation (INO) | payer MEDICARE, MEDICAID, SELFPAY ==
--- NOTE | ~2022-07-10 | XR_ITS ---
EXAMINATION: XR chest 1V portable INDICATION: Shortness of breath TECHNIQUE: Portable AP chest at 1603 hours COMPARISON: 06/08/2022 FINDINGS: The cardiomediastinal silhouette is normal. No pleural effusion or pneumothorax. There are minimal opacities of the mid and lower lung zones. 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 IMPRESSION: 1. Opacities of the mid and lower lung zones, consistent with atelectasis versus pneumonia versus pul monary edema. Reviewed, dictated and finalized at location L. IMPRESSION: 1. Opacities of the mid and lower lung zones, consistent with atelectasis versu s pneumonia versus pulmonary edema.
[2022-07-10 15:34] VITALS: BP 130/77; PULSE 82; RESP 19; TEMP 36.5; O2SAT 98
[2022-07-10 15:42] VITALS: PULSE 80
--- NOTE | 2022-07-10 16:10 | ED.WEAKNESS ---
HPI - Weakness General Chief complaint: Weakness <Deya Abbott PA-C - Last Filed: 07/10/22 18:19> Stated complaint: weakness <Deya Abbott PA-C - Last Filed: 07/10/22 18:19> Time Seen by Provider: 07/10/22 15:32 <Deya Abbott PA-C - Last Filed: 07/10/22 18:19> History of Present Illness HPI Narrative: Patient is an 81-year-old chronically ill male with a history of CHF, hypertension, chronic extremity weakness, atrial fibrillation, chronic respiratory failure with hypoxia here with his granddaughter for evaluation of acute on chronic weakness x4 days. Family notes the weakness is most severe in his upper extremities and has been unable to do his ADLs without assistance. Has not been able to feed himself, shower or walk which is abnormal for him. Per chart review he was admitted at the end of May for identical history, was eventually discharged to a SNF. Patient was doing well at the SNF but daughter was concerned that they discharged him too early and he progressively declined at home. He did have some chest pain this morning, took a nitro with relief of his pain. States this is typical for him to get chest pain throughout the day. Has chronic leg swelling and scrotal swelling. <Deya Abbott PA-C - Last Filed: 07/10/22 18:19> Related Data Home medications: Home Medications Medication Instructions Recorded Confirmed pregabalin 75 mg capsule (Lyrica) 75 mg PO Q12H 10/24/20 07/10/22 tamsulosin 0.4 mg capsule (Flomax) 0.4 mg PO DAILY 10/24/20 07/10/22 donepezil 5 mg tablet (Aricept) 10 mg PO HS 11/12/21 07/10/22 lidocaine-prilocaine 2.5 %-2.5 % 1 applic topical PRN PRN Pain 11/12/21 07/10/22 topical cream metformin 1,000 mg tablet 1,000 mg PO BID 11/12/21 07/10/22 ondansetron HCl 4 mg tablet 4 mg PO TID PRN Nausea 11/12/21 07/10/22 meclizine 12.5 mg tablet 12.5 mg PO TID PRN Dizziness 12/16/21 07/10/22 polyethylene glycol 3350 17 gram 17 g PO DAILY 06/08/22 07/10/22 oral powder packet (Miralax) sennosides 8.6 mg-docusate sodium 1 tab-cap PO DAILY PRN Constipation 06/08/22 07/10/22 50 mg capsule torsemide 20 mg tablet 40 mg PO BID 06/08/22 07/10/22 <Deya Abbott PA-C - Last Filed: 07/10/22 18:19> Allergies/Adverse reactions: Allergies Allergy/AdvReac Type Severity Reaction Status Date / Time No Known Allergies Allergy Verified 06/08/22 09:52 <Deya Abbott PA-C - Last Filed: 07/10/22 18:19> Review of Systems Review of Systems: Gen: Reports weakness Eyes: Denies eye pain or visual change ENT: Denies congestion Respiratory: Denies shortness of breath or cough CV: Reports chest pain GI: Denies abdominal pain nausea, emesis or diarrhea : denies burning, urgency, frequency or hematuria Musculoskeletal: Denies back pain or muscle pain Neuro: Denies numbness, tingling, weakness or focal weakness Skin: Denies rash Except as documented, all other systems reviewed and negative <Deya Abbott PA-C - Last Filed: 07/10/22 18:19> [facility] Past Medical History Medical History: Medical History (Updated 07/10/22 @ 23:22 by Ashley Olivo PA-C) Arthritis Atrial flutter Benign prostatic hyperplasia Cerebrovascular accident 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 Chronic anemia Chronic pain Patient had a pain pump inserted in February 2019. Chronic respiratory failure with hypoxia, on home oxygen therapy Baseline oxygen requirement is 3 L nasal cannula. Congestive heart failure Echocardiogram February 2021: EF 55-60% (improved from prior echo of 45%) left ventricular septal wall motion abnormal related to bundle-branch block, grade 2 diastolic dysfunction, severe pulmonary hypertension with RVSP of 74, severe enlargement of the right atrium Coronary artery disease Gastroesophageal reflux disease History of bleeding peptic ulcer Hypertension Iron deficiency anemia R
[2022-07-10 16:21] LABS: Basophils Percent Auto 0.4 % (0.2-1.2); Eosinophils Percent Auto 0.6 % (0-4.4); Hematocrit 31.8 % (42.0-52.0); Hemoglobin 9.4 g/dL (14.0-18.0); Immature Granulocyte Absolute 0.04 K/mm3 (0.00-0.031); Immature Granulocyte Percent A 0.6 % (0-0.5); Lymphocytes Absolute Auto 0.53 K/mm3 (0.9-3.2); Lymphocytes Percent Auto 7.7 % (18.3-44.2); Mean Corpuscular HGB Conc 29.6 g/dl (32-36); Mean Corpuscular Hemoglobin 27.2 pg (26-34); Mean Corpuscular Volume 92.2 fl (80-100); Mean Platelet Volume 10.5 fl (7.4-10.4); Monocytes Absolute Auto 0.9 K/mm3 (0.1-0.6); Monocytes Percent Auto 12.6 % (2.6-8.5); Neutrophils Absolute Auto 5.4 K/mm3 (1.3-6.7); Neutrophils Percent Auto 78.1 % (45.5-73.1); Platelet Count Result 226 k/mm3 (150-375); Red Blood Count 3.45 M/mm3 (4.6-6.20); Red Cell Distribution Width 20.7 % (11.5-14.5); White Blood Count 6.9 K/mm3 (4.5-10.0)
[2022-07-10 16:30] LABS: Partial Thromboplastin Time 32.8 SECONDS (22.3-36.8); Prothrombin Time 13.3 Seconds (11.1-14.7)
[2022-07-10 16:32] LABS: Lactic Acid Reflex 2.6 mmol/L (0.7-2.0)
--- NOTE | 2022-07-10 16:36 | PCCCNOTE ---
Spoke with daughter regarding rehab/PT for her father. Currently she states pt to weak to bath or be safe at home. Pt had recent stay at [facility] and was discharged after 10 days. I spoke with Laverne and she was not positive but believed it was due to pt plateauing and not making further progress. Daughter was not happy with overall care at [facility] and would like different placement. Preferred location would be [facility] or [place]. Pt has [facility] and medicaid.
[2022-07-10 16:41] LABS: Alanine Aminotransferase 20 U/L (6-50); Albumin Level 3.6 g/dL (3.5-5.1); Alkaline Phosphatase 116 U/L (38-126); Aspartate Amino Transferase 29 U/L (17-59); Bilirubin,Total 0.5 mg/dL (0.2-1.3); Blood Urea Nitrogen 30 mg/dL (9-20); Calcium 8.6 mg/dL (8.4-10.2); Carbon Dioxide > 40 mmol/L (22-30); Chloride 88 mmol/L (98-107); Estimated Glomerular Filt Rate > 60; Glucose 189 mg/dL (65-110); Magnesium 1.8 mg/dL (1.6-2.3); Phosphorus 5.2 mg/dL (2.5-4.5); Potassium 4.5 mmol/L (3.4-5.0); Sodium 134 mmol/L (137-145)
[2022-07-10 16:46] LABS: NT Pro B Type Natriuretic Pept 2260 pg/mL (19.9-100)
[2022-07-10 16:50] LABS: Anisocytosis 1+ (NORMAL); Hypochromasia 1+ (NORMAL); Ovalocytes 1+ (NORMAL); Platelet Estimate Adequate (Adequate)
[2022-07-10 16:51] LABS: Schistocytes None Seen (NORMAL)
[2022-07-10 17:00] LABS: Appearance Urine Cloudy (Clear); Bacteria Urine None Seen /hpf; Bilirubin Urine Negative (Negative); Blood Urine Negative (Negative); Color Urine Yellow (Yellow); Glucose Urine UA 3+ mg/dL (Negative); Ketones Urine Negative (Negative); Leukocyte Esterase Ur Negative LEU/UL (Negative); Nitrate Urine Negative (Negative); Protein Urine Negative (Negative); RBC Urine 0-2 /hpf (0-2); Specific Grav Ur 1.016 (1.001-1.035); Squamous Epithelial Cell Urine None seen /hpf (Few); Urobilinogen Urine 0.2 mg/dL (<2.0); WBC Urine 0-5 /hpf
[2022-07-10 17:03] LABS: Add Urine Microscopic? YES
--- NOTE | 2022-07-10 18:19 | PM.IMHP ---
H&P: HPI History of Present Illness Date/Time: 07/10/22 18:00 Chief Complaint: Weakness and fatigue. Narrative: This is a very pleasant 81-year-old male with congestive heart failure, severe pulmonary hypertension, coronary artery disease, chronic respiratory failure with hypoxia, chronic obstructive pulmonary disease, paroxysmal atrial fibrillation, type 2 diabetes mellitus, and other comorbidities who presented to the emergency department from home for evaluation of of weakness and fatigue. He was recently in rehab for 2 weeks and reports doing quite well. He has been home for about 12 days and initially he did okay however these past 4 days he has once again become increasingly weak and fatigued. He uses a wheelchair at home and is gotten to the point where he is having difficulties even transferring himself to the wheelchair. This morning he was unable to get himself in the shower or shower himself and he realized that he probably needs placement in assisted living. He does remark that he took a nitroglycerin earlier today but that is not unusual for him and he has not had any further chest discomfort. He has occasional loose stools which is not new or unusual for him. He has no specific complaints and he denies focal weakness, paresthesias, syncope, near syncope, chest and pleuritic pain, shortness a breath, cold and flu symptoms, nausea, vomiting, and dysuria. Vital signs were stable on arrival to ED. Aside from a mildly elevated lactic acid level, his labs are reassuring and consistent with prior testing. Review of Systems Review of Systems: Twelve systems were reviewed and are negative except for as per HPI. [facility] Past Medical History Medical History (Updated 07/10/22 @ 23:22 by Ashley Olivo PA-C) Arthritis Atrial flutter Benign prostatic hyperplasia Cerebrovascular accident 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 Chronic anemia Chronic pain Patient had a pain pump inserted in February 2019. Chronic respiratory failure with hypoxia, on home oxygen therapy Baseline oxygen requirement is 3 L nasal cannula. Congestive heart failure Echocardiogram February 2021: EF 55-60% (improved from prior echo of 45%) left ventricular septal wall motion abnormal related to bundle-branch block, grade 2 diastolic dysfunction, severe pulmonary hypertension with RVSP of 74, severe enlargement of the right atrium Coronary artery disease Gastroesophageal reflux disease History of bleeding peptic ulcer Hypertension Iron deficiency anemia Receives frequent iron infusions. Liver cirrhosis Moderate pulmonary hypertension Estimated pulmonary arterial systolic pressure was 54 mmHg on echocardiogram dated 10/25/2020. Obstructive sleep apnea Paroxysmal atrial fibrillation Pseudobulbar affect Spinal stenosis Type 2 diabetes mellitus Hemoglobin A1c was 6.3% on 10/25/2020. Surgical History Surgical History History of bilateral cataract extraction History of hernia repair 3 Family History Family History Father Acute myocardial infarction Sibling Acute myocardial infarction Brain aneurysm Other No problems noted. Mother Breast cancer Social History Social History (Updated 07/10/22 @ 23:18 by Ashley Olivo PA-C) Social History: Healthcare power of food consultant: Lennie Cruz, granddaughter. Code status: Full code. Smoking packs per day: 3 Smoking cigarettes per day: 60.0 Years smoked: 30 Smoking pack-years: 90.00 Smoking status: Former smoker Tobacco type: cigarettes Second hand tobacco smoke exposure: No Additional smoking assessment comments: quit 25 years ago Alcohol intake: never Substance use: never Substance use type: does not use Lack of Transportation: No Lack of Food: Never True Current Housing: I Have Housing Concerned
[2022-07-10 19:14] LABS: Reflex Lactic Acid Yes or No Add Lactic
[2022-07-10 19:48] LABS: Lactic Acid 2.1 mmol/L (0.7-2.0)
--- NOTE | 2022-07-10 20:05 | ECG_ITS ---
Measurements Intervals [place] Rate: 85 P: [place]: 0 QRS: 52 QRSD: 104 T: -1 QT: 392 QTc: 467 Interpretive Statements ATRIAL FIBRILLATION LOW QRS VOLTAGE IN EXTREMITY LEADS [QRS DEFLECTION < 0.5 mV IN LIMB LEADS] ABNORMAL RHYTHM ECG COMPARED TO ECG 06/08/2022 10:06:12 ATRIAL FIBRILLATION NOW PRESENT Electronically Signed On 07-11-2022 10:57:05 CDT by Néstor Nugent M.D.
[2022-07-10 20:40] VITALS: BMI 27.3
[2022-07-10 20:41] VITALS: BP 128/60; PULSE 82; RESP 18; TEMP 36.2; O2SAT 99
[2022-07-10 20:57] VITALS: PULSE 84
--- NOTE | 2022-07-10 21:05 | ECG_ITS ---
Measurements Intervals [place] Rate: 73 P: [place]: 0 QRS: 67 QRSD: 109 T: -1 QT: 431 QTc: 478 Interpretive Statements ATRIAL FLUTTER/TACHYCARDIA LOW QRS VOLTAGE IN EXTREMITY LEADS [QRS DEFLECTION < 0.5 mV IN LIMB LEADS] SEPTAL MYOCARDIAL INFARCTION , PROBABLY OLD [40+ ms Q WAVE IN V1/V2] COMPARED TO ECG 07/10/2022 15:34:56 ATRIAL FLUTTER NOW PRESENT Electronically Signed On 07-11-2022 12:58:20 CDT by Néstor Nugent M.D.
--- NOTE | 2022-07-10 21:19 | PC.NURSE ---
This patient, Zack Orellana, was admitted to Medical Room 343-01. Patient/family oriented to hospital policies and general routines including ID bracelet, bed and alarms, visiting hours, pain management, procedures, bathroom and other care routines, personal items, smoking policy, room service/diet, and visiting hours. Information on how to activate the Rapid Response Team has been discussed. Patient/Family are encouraged to report perceived risks to care and to ask questions if they do not understand what they are told or what they should do. Maintenance notified and Cpap machine checked.
[2022-07-10 22:40] VITALS: PULSE 76; RESP 18; O2SAT 95
[2022-07-11] VITALS (9 sets, daily range): BP systolic 119–126; BP diastolic 52–57; PULSE 72–76; RESP 17–20; TEMP 36.3–36.6; O2SAT 95–100; BMI 27.3
[2022-07-11] MEDS: PREGABALIN (*CRX) 75 MG CAPSULE PO ×3 (00:46→20:45)
[2022-07-11] MEDS: DONEPEZIL HCL 5 MG TABLET 10 MG PO ×2 (00:47→20:45)
[2022-07-11] MEDS: ACETAMINOPHEN 325 MG TABLET 650 MG PO ×3 (02:39→20:49)
[2022-07-11 05:34] LABS: Hematocrit 29.5 % (42.0-52.0); Hemoglobin 8.9 g/dL (14.0-18.0); Mean Corpuscular HGB Conc 30.2 g/dl (32-36); Mean Corpuscular Hemoglobin 27.3 pg (26-34); Mean Corpuscular Volume 90.5 fl (80-100); Mean Platelet Volume 10.4 fl (7.4-10.4); Platelet Count Result 215 k/mm3 (150-375); Red Blood Count 3.26 M/mm3 (4.6-6.20); Red Cell Distribution Width 20.8 % (11.5-14.5); White Blood Count 5.8 K/mm3 (4.5-10.0)
[2022-07-11 05:55] LABS: Lactic Acid Reflex 0.6 mmol/L (0.7-2.0)
[2022-07-11 06:14] LABS: Blood Urea Nitrogen 26 mg/dL (9-20); Calcium 8.3 mg/dL (8.4-10.2); Carbon Dioxide > 40 mmol/L (22-30); Chloride 92 mmol/L (98-107); Estimated CRCL calculation 68 ml/min; Estimated Glomerular Filt Rate > 60; Glucose 123 mg/dL (65-110); Magnesium 1.8 mg/dL (1.6-2.3); Potassium 4.3 mmol/L (3.4-5.0); Sodium 134 mmol/L (137-145)
[2022-07-11 08:30] LABS: Glucose Point of Care 141 mg/dl (65-105)
[2022-07-11] MEDS: TORSEMIDE 20 MG TABLET 40 MG PO ×2 (09:25→16:37)
[2022-07-11] MEDS: SPIRONOLACTONE 25 MG TABLET PO ×2 (09:25→16:37)
[2022-07-11] MEDS: MAGNESIUM OXIDE 400 MG TABLET PO ×2 (09:26→16:37)
[2022-07-11] MEDS: metFORMIN HCL 500 MG TABLET 1000 MG PO ×2 (09:26→16:37)
[2022-07-11] MEDS: SENNA/DOCUSATE SODIUM TABLET 1 TAB PO (09:26)
[2022-07-11] MEDS: FERROUS SULFATE 324 MG TABLET PO (09:26)
[2022-07-11] MEDS: TAMSULOSIN HCL 0.4 MG CAPSULE PO (09:26)
[2022-07-11] MEDS: EMPAGLIFLOZIN 10 MG TABLET PO (09:26)
[2022-07-11] MEDS: ENOXAPARIN 40 MG/0.4 ML SYRINGE SUB-Q (09:27)
[2022-07-11] MEDS: polyethylene glycoL 3350 17 GM POWD.PACK PO (09:27)
--- NOTE | 2022-07-11 11:16 | PM.IMPN ---
Progress Note: A&P Assessment and Plan (1) Generalized weakness: Code(s): R53.1 - Weakness Status: Acute Assessment and Plan: The patient has been home for 12 days following a 2 week stint in rehab. He is starting to realize that he is probably not able to care for himself at home and thinks he needs to be in assisted living. Care coordination evaluate the patient in the emergency department and they did not feel that they would be able to get anything done today and he is being admitted in this setting. No focal findings were noted on exam today, he is generally weak. Initiate fall precautions. PT/OT consulted. 07/11/2022 interval history: Patient states he feels very tired and weak unable to ambulate unable to use his upper extremities, need assistance with his ADLs, family is not able to take care of him, will have a PT OT evaluate the patient, will discuss with care management for possible placement. (2) Chronic diastolic congestive heart failure: Code(s): I50.32 - Chronic diastolic (congestive) heart failure Status: Acute Assessment and Plan: He appears clinically compensated with minimal lower extremity edema. Much improved compared to last time I saw this patient. Continue diuretics as prescribed. (3) Type 2 diabetes mellitus: Qualifiers: Diabetes mellitus complication status: without complication Diabetes mellitus computer terminal operator insulin use: without senior care use Qualified Code(s): E11.9 - Type 2 diabetes mellitus without complications Code(s): E11.9 - Type 2 diabetes mellitus without complications Status: Chronic Assessment and Plan: Random glucose is 189. Continue Jardiance. Initiate sliding scale insulin, Accu-Cheks, and hypoglycemic protocol. (4) Elevated lactic acid level: Code(s): R79.89 - Other specified abnormal findings of blood chemistry Status: Acute Assessment and Plan: Suspect related to draw technique or poor hepatic clearance. He gives no history to suggest underlying infection. (5) Chronic anemia: Code(s): D64.9 - Anemia, unspecified Status: Acute Assessment and Plan: Stable on review of previous labs. Subjective Date/time seen: 07/11/22 11:16 Interval history: Weakness and fatigue. HPI-Narrative: This is a very pleasant 81-year-old male with congestive heart failure, severe pulmonary hypertension, coronary artery disease, chronic respiratory failure with hypoxia, chronic obstructive pulmonary disease, paroxysmal atrial fibrillation, type 2 diabetes mellitus, and other comorbidities who presented to the emergency department from home for evaluation of of weakness and fatigue. He was recently in rehab for 2 weeks and reports doing quite well. He has been home for about 12 days and initially he did okay however these past 4 days he has once again become increasingly weak and fatigued. He uses a wheelchair at home and is gotten to the point where he is having difficulties even transferring himself to the wheelchair. This morning he was unable to get himself in the shower or shower himself and he realized that he probably needs placement in assisted living. He does remark that he took a nitroglycerin earlier today but that is not unusual for him and he has not had any further chest discomfort. He has occasional loose stools which is not new or unusual for him. He has no specific complaints and he denies focal weakness, paresthesias, syncope, near syncope, chest and pleuritic pain, shortness a breath, cold and flu symptoms, nausea, vomiting, and dysuria. Vital signs were stable on arrival to ED. Aside from a mildly elevated lactic acid level, his labs are reassuring and consistent with prior testing. 07/11/2022 interval history: Patient states he feels very tired and weak unable to ambulate unable to use his upper extremities, need assistance with his ADLs, family is not able to take care of him, will have a PT OT
[2022-07-11 12:38] LABS: Glucose Point of Care 169 mg/dl (65-105)
[2022-07-11 17:15] LABS: Glucose Point of Care 116 mg/dl (65-105)
[2022-07-11 20:48] LABS: Glucose Point of Care 163 mg/dl (65-105)
[2022-07-12] VITALS (10 sets, daily range): BP systolic 122–133; BP diastolic 59–70; PULSE 70–76; RESP 18; TEMP 35.7–36.3; O2SAT 96–100
[2022-07-12 08:23] LABS: Glucose Point of Care 133 mg/dl (65-105)
[2022-07-12] MEDS: ACETAMINOPHEN 325 MG TABLET 650 MG PO (08:29)
[2022-07-12] MEDS: ENOXAPARIN 40 MG/0.4 ML SYRINGE SUB-Q (08:30)
[2022-07-12] MEDS: SPIRONOLACTONE 25 MG TABLET PO ×2 (08:31→17:39)
[2022-07-12] MEDS: polyethylene glycoL 3350 17 GM POWD.PACK PO (08:31)
[2022-07-12] MEDS: MAGNESIUM OXIDE 400 MG TABLET PO ×2 (08:31→17:37)
[2022-07-12] MEDS: FERROUS SULFATE 324 MG TABLET PO (08:31)
[2022-07-12] MEDS: TORSEMIDE 20 MG TABLET 40 MG PO ×2 (08:31→17:39)
[2022-07-12] MEDS: PREGABALIN (*CRX) 75 MG CAPSULE PO ×2 (08:31→20:23)
[2022-07-12] MEDS: EMPAGLIFLOZIN 10 MG TABLET PO (08:31)
[2022-07-12] MEDS: metFORMIN HCL 500 MG TABLET 1000 MG PO ×2 (08:32→17:38)
[2022-07-12] MEDS: TAMSULOSIN HCL 0.4 MG CAPSULE PO (08:32)
[2022-07-12 10:25] LABS: Anion Gap 3 mmol/L (8-16); Blood Urea Nitrogen 22 mg/dL (9-20); Calcium 8.4 mg/dL (8.4-10.2); Carbon Dioxide 39 mmol/L (22-30); Chloride 90 mmol/L (98-107); Estimated CRCL calculation 78 ml/min; Estimated Glomerular Filt Rate > 60; Glucose 121 mg/dL (65-110); Magnesium 1.9 mg/dL (1.6-2.3); Sodium 132 mmol/L (137-145)
[2022-07-12 11:16] LABS: Hemoglobin 9.8 g/dL (14.0-18.0); Mean Corpuscular HGB Conc 29.7 g/dl (32-36); Mean Corpuscular Hemoglobin 26.8 pg (26-34); Mean Corpuscular Volume 90.2 fl (80-100); Mean Platelet Volume 9.5 fl (7.4-10.4); Platelet Count Result 220 k/mm3 (150-375); Red Blood Count 3.66 M/mm3 (4.6-6.20); Red Cell Distribution Width 20.1 % (11.5-14.5); White Blood Count 5.5 K/mm3 (4.5-10.0)
[2022-07-12 11:50] LABS: Glucose Point of Care 193 mg/dl (65-105)
--- NOTE | 2022-07-12 14:50 | PM.IMPN ---
Progress Note: A&P Assessment and Plan (1) Generalized weakness: Code(s): R53.1 - Weakness Status: Acute Assessment and Plan: The patient has been home for 12 days following a 2 week stint in rehab. He is starting to realize that he is probably not able to care for himself at home and thinks he needs to be in assisted living. Care coordination evaluate the patient in the emergency department and they did not feel that they would be able to get anything done today and he is being admitted in this setting. No focal findings were noted on exam today, he is generally weak. Initiate fall precautions. PT/OT consulted. 07/12/2022 interval history: Patient states he feels very tired and weak unable to ambulate unable to use his upper extremities, need assistance with his ADLs, family is not able to take care of him, will have a PT OT evaluate the patient, today patient complains pain start the patient on tramadol, will discuss with care management for possible placement. (2) Chronic diastolic congestive heart failure: Code(s): I50.32 - Chronic diastolic (congestive) heart failure Status: Acute Assessment and Plan: He appears clinically compensated with minimal lower extremity edema. Much improved compared to last time I saw this patient. Continue diuretics as prescribed. 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 Continue Jardiance. Initiate sliding scale insulin, Accu-Cheks, and hypoglycemic protocol. (4) Elevated lactic acid level: Code(s): R79.89 - Other specified abnormal findings of blood chemistry Status: Acute Assessment and Plan: Suspect related to draw technique or poor hepatic clearance. He gives no history to suggest underlying infection. (5) Chronic anemia: Code(s): D64.9 - Anemia, unspecified Status: Acute Assessment and Plan: Stable on review of previous labs. Subjective Date/time seen: 07/12/22 14:50 Interval history: Weakness and fatigue. HPI-Narrative: This is a very pleasant 81-year-old male with congestive heart failure, severe pulmonary hypertension, coronary artery disease, chronic respiratory failure with hypoxia, chronic obstructive pulmonary disease, paroxysmal atrial fibrillation, type 2 diabetes mellitus, and other comorbidities who presented to the emergency department from home for evaluation of of weakness and fatigue. He was recently in rehab for 2 weeks and reports doing quite well. He has been home for about 12 days and initially he did okay however these past 4 days he has once again become increasingly weak and fatigued. He uses a wheelchair at home and is gotten to the point where he is having difficulties even transferring himself to the wheelchair. This morning he was unable to get himself in the shower or shower himself and he realized that he probably needs placement in assisted living. He does remark that he took a nitroglycerin earlier today but that is not unusual for him and he has not had any further chest discomfort. He has occasional loose stools which is not new or unusual for him. He has no specific complaints and he denies focal weakness, paresthesias, syncope, near syncope, chest and pleuritic pain, shortness a breath, cold and flu symptoms, nausea, vomiting, and dysuria. Vital signs were stable on arrival to ED. Aside from a mildly elevated lactic acid level, his labs are reassuring and consistent with prior testing. 07/12/2022 interval history: Patient states he feels very tired and weak unable to ambulate unable to use his upper extremities, need assistance with his ADLs
[2022-07-12 17:46] LABS: Glucose Point of Care 126 mg/dl (65-105)
[2022-07-12] MEDS: traMADol HCL (*CRX) 50 MG TABLET PO (18:52)
[2022-07-12] MEDS: DONEPEZIL HCL 5 MG TABLET 10 MG PO (20:23)
[2022-07-12 21:57] LABS: Glucose Point of Care 173 mg/dl (65-105)
[2022-07-13] VITALS (10 sets, daily range): BP systolic 122–138; BP diastolic 62–81; PULSE 67–86; RESP 18–20; TEMP 36.5–36.8; O2SAT 96–99
[2022-07-13 06:06] LABS: Hematocrit 32.1 % (42.0-52.0); Hemoglobin 9.7 g/dL (14.0-18.0); Mean Corpuscular HGB Conc 30.2 g/dl (32-36); Mean Corpuscular Hemoglobin 27.2 pg (26-34); Mean Corpuscular Volume 90.2 fl (80-100); Mean Platelet Volume 10.4 fl (7.4-10.4); Platelet Count Result 224 k/mm3 (150-375); Red Blood Count 3.56 M/mm3 (4.6-6.20); Red Cell Distribution Width 20.2 % (11.5-14.5); White Blood Count 4.9 K/mm3 (4.5-10.0)
[2022-07-13 06:22] LABS: Blood Urea Nitrogen 20 mg/dL (9-20); Calcium 8.4 mg/dL (8.4-10.2); Carbon Dioxide > 40 mmol/L (22-30); Chloride 88 mmol/L (98-107); Estimated CRCL calculation 68 ml/min; Estimated Glomerular Filt Rate > 60; Glucose 116 mg/dL (65-110); Magnesium 1.7 mg/dL (1.6-2.3); Potassium 3.8 mmol/L (3.4-5.0); Sodium 133 mmol/L (137-145)
[2022-07-13] MEDS: ACETAMINOPHEN 325 MG TABLET 650 MG PO (06:23)
[2022-07-13 08:35] LABS: Glucose Point of Care 169 mg/dl (65-105)
[2022-07-13] MEDS: EMPAGLIFLOZIN 10 MG TABLET PO (08:50)
[2022-07-13] MEDS: MAGNESIUM OXIDE 400 MG TABLET PO ×2 (08:50→16:47)
[2022-07-13] MEDS: FERROUS SULFATE 324 MG TABLET PO (08:50)
[2022-07-13] MEDS: ENOXAPARIN 40 MG/0.4 ML SYRINGE SUB-Q (08:50)
[2022-07-13] MEDS: PREGABALIN (*CRX) 75 MG CAPSULE PO ×2 (08:50→21:04)
[2022-07-13] MEDS: SPIRONOLACTONE 25 MG TABLET PO ×2 (08:51→16:47)
[2022-07-13] MEDS: TAMSULOSIN HCL 0.4 MG CAPSULE PO (08:51)
[2022-07-13] MEDS: metFORMIN HCL 500 MG TABLET 1000 MG PO ×2 (08:51→16:46)
[2022-07-13] MEDS: TORSEMIDE 20 MG TABLET 40 MG PO ×2 (08:51→16:47)
[2022-07-13 12:16] LABS: Glucose Point of Care 213 mg/dl (65-105)
[2022-07-13] MEDS: INSULIN ASPART (*BKC) 100 UNITS/ML SUB-Q (13:11)
--- NOTE | 2022-07-13 14:39 | PM.IMPN ---
Progress Note: A&P Assessment and Plan (1) Generalized weakness: Code(s): R53.1 - Weakness Status: Acute Assessment and Plan: The patient has been home for 12 days following a 2 week stint in rehab. He is starting to realize that he is probably not able to care for himself at home and thinks he needs to be in assisted living. Care coordination evaluate the patient in the emergency department and they did not feel that they would be able to get anything done today and he is being admitted in this setting. No focal findings were noted on exam today, he is generally weak. Initiate fall precautions. PT/OT consulted. 07/13/2022 interval history: Patient states he feels very tired and weak unable to ambulate unable to use his upper extremities, need assistance with his ADLs, today patient states has a poor appetite feels he is losing weight, will consult dietitian may benefit supplements, family is not able to take care of him, will have PT OT evaluate the patient, today patient complains pain start the patient on tramadol, will low dose gabapentin, will discuss with care management for possible placement. (2) Chronic diastolic congestive heart failure: Code(s): I50.32 - Chronic diastolic (congestive) heart failure Status: Acute Assessment and Plan: He appears clinically compensated with minimal lower extremity edema. Much improved compared to last time I saw this patient. Continue diuretics as prescribed. (3) Type 2 diabetes mellitus: Qualifiers: Diabetes mellitus mcc insulin use: without ferry terminal supervisor use Diabetes mellitus complication status: without complication Qualified Code(s): E11.9 - Type 2 diabetes mellitus without complications Code(s): E11.9 - Type 2 diabetes mellitus without complications Status: Chronic Assessment and Plan: Random glucose is 189. Continue Jardiance. Initiate sliding scale insulin, Accu-Cheks, and hypoglycemic protocol. (4) Elevated lactic acid level: Code(s): R79.89 - Other specified abnormal findings of blood chemistry Status: Acute Assessment and Plan: Suspect related to draw technique or poor hepatic clearance. He gives no history to suggest underlying infection. (5) Chronic anemia: Code(s): D64.9 - Anemia, unspecified Status: Acute Assessment and Plan: Stable on review of previous labs. Subjective Date/time seen: 07/13/22 14:39 Interval history: Weakness and fatigue. HPI-Narrative: This is a very pleasant 81-year-old male with congestive heart failure, severe pulmonary hypertension, coronary artery disease, chronic respiratory failure with hypoxia, chronic obstructive pulmonary disease, paroxysmal atrial fibrillation, type 2 diabetes mellitus, and other comorbidities who presented to the emergency department from home for evaluation of of weakness and fatigue. He was recently in rehab for 2 weeks and reports doing quite well. He has been home for about 12 days and initially he did okay however these past 4 days he has once again become increasingly weak and fatigued. He uses a wheelchair at home and is gotten to the point where he is having difficulties even transferring himself to the wheelchair. This morning he was unable to get himself in the shower or shower himself and he realized that he probably needs placement in assisted living. He does remark that he took a nitroglycerin earlier today but that is not unusual for him and he has not had any further chest discomfort. He has occasional loose stools which is not new or unusual for him. He has no specific complaints and he denies focal weakness, paresthesias, syncope, near syncope, chest and pleuritic pain, shortness a breath, cold and flu symptoms, nausea, vomiting, and dysuria. Vital signs were stable on arrival to ED. Aside from a mildly elevated lactic acid level, his labs are reassuring and consistent with prior testing. 07/13/2022 int
[2022-07-13] MEDS: GABAPENTIN 100 MG CAPSULE PO (16:46)
[2022-07-13] MEDS: traMADol HCL (*CRX) 50 MG TABLET PO (16:51)
[2022-07-13 17:10] LABS: Glucose Point of Care 138 mg/dl (65-105)
[2022-07-13 20:41] LABS: Glucose Point of Care 163 mg/dl (65-105)
[2022-07-13] MEDS: DONEPEZIL HCL 5 MG TABLET 10 MG PO (21:04)
[2022-07-13] MEDS: MELATONIN 5 MG TABLET PO (21:05)
[2022-07-14] VITALS (8 sets, daily range): BP systolic 117–129; BP diastolic 60–72; PULSE 72–83; RESP 16–20; TEMP 36.5–37.1; O2SAT 97–99
[2022-07-14] MEDS: ACETAMINOPHEN 325 MG TABLET 650 MG PO ×2 (05:08→17:31)
[2022-07-14 05:45] LABS: Hematocrit 34.6 % (42.0-52.0); Hemoglobin 10.2 g/dL (14.0-18.0); Mean Corpuscular HGB Conc 29.5 g/dl (32-36); Mean Corpuscular Hemoglobin 26.9 pg (26-34); Mean Corpuscular Volume 91.3 fl (80-100); Platelet Count Result 224 k/mm3 (150-375); Red Blood Count 3.79 M/mm3 (4.6-6.20); White Blood Count 5.8 K/mm3 (4.5-10.0)
[2022-07-14 05:57] LABS: Blood Urea Nitrogen 28 mg/dL (9-20); Calcium 8.5 mg/dL (8.4-10.2); Carbon Dioxide > 40 mmol/L (22-30); Chloride 89 mmol/L (98-107); Estimated CRCL calculation 54 ml/min; Estimated Glomerular Filt Rate > 60; Glucose 138 mg/dL (65-110); Magnesium 1.7 mg/dL (1.6-2.3); Potassium 4.2 mmol/L (3.4-5.0); Sodium 133 mmol/L (137-145)
[2022-07-14 08:18] LABS: Glucose Point of Care 107 mg/dl (65-105)
[2022-07-14] MEDS: TORSEMIDE 20 MG TABLET 40 MG PO ×2 (09:31→17:24)
[2022-07-14] MEDS: GABAPENTIN 100 MG CAPSULE PO ×3 (09:31→17:23)
[2022-07-14] MEDS: MAGNESIUM OXIDE 400 MG TABLET PO ×2 (09:31→17:23)
[2022-07-14] MEDS: TAMSULOSIN HCL 0.4 MG CAPSULE PO (09:31)
[2022-07-14] MEDS: ENOXAPARIN 40 MG/0.4 ML SYRINGE SUB-Q (09:41)
[2022-07-14] MEDS: polyethylene glycoL 3350 17 GM POWD.PACK PO (09:41)
[2022-07-14] MEDS: metFORMIN HCL 500 MG TABLET 1000 MG PO ×2 (09:41→17:23)
[2022-07-14] MEDS: FERROUS SULFATE 324 MG TABLET PO (09:41)
[2022-07-14] MEDS: SPIRONOLACTONE 25 MG TABLET PO ×2 (09:41→17:29)
[2022-07-14] MEDS: EMPAGLIFLOZIN 10 MG TABLET PO (09:51)
[2022-07-14] MEDS: PREGABALIN (*CRX) 75 MG CAPSULE PO ×2 (09:51→20:51)
[2022-07-14 12:21] LABS: Glucose Point of Care 174 mg/dl (65-105)
--- NOTE | 2022-07-14 12:54 | PCPTNOTE ---
Attempted to see patient for PT, however patient was eating his lunch.
[2022-07-14] MEDS: traMADol HCL (*CRX) 50 MG TABLET PO ×2 (13:32→20:55)
--- NOTE | 2022-07-14 14:17 | PCNFU ---
Nutrition Follow-Up Complete: Increased energy needs as related to COPD as evidenced by reported fair intake and weakness. New: Severe protein calorie malnutrition related to chronic illness as evidenced by 22% weight loss/5 months, NFPE Adequate Intake of at least 75% of meals/supplements - meeting goal Goal: Pt current nutrition is Heart healthy diet. Glucerna BID for additional 220 kcals and 10 g protein each . Nutrition recommendation: continue with same nutrition care plan. Agree with orders. Last recorded weight is 76.8 kg. Bowel Motility: Last BM +1 07/13/22 Labs Reviewed: Hgb 10.2, Hct 34.6, Na 133, BUN 28, Glu 174 Meds Noted: Bumetadine, Donepezil, Jardiance, torsemide, spironolactone Skin: WNL Additional Notes: Meets criteria for severe malnutrition based on weight loss before admission: -22%/5 months. has lost 10 lbs since admission, may be related to heavy diuresis. Intakes are good. Pt says his appetite is pretty good and he does not know why he lost weight. Continue current orders. RD will monitor every 5 days.
--- NOTE | 2022-07-14 15:15 | PM.DS ---
DS: Admitting Diagnosis Discharge Date 07/14/2022 Admitting Diagnosis Weakness and fatigue. DS: Discharge Diagnosis Discharge Diagnosis (1) Generalized weakness: Code(s): R53.1 - Weakness Status: Acute Assessment and Plan: The patient has been home for 12 days following a 2 week stint in rehab. He is starting to realize that he is probably not able to care for himself at home and thinks he needs to be in assisted living. Care coordination evaluate the patient in the emergency department and they did not feel that they would be able to get anything done today and he is being admitted in this setting. No focal findings were noted on exam today, he is generally weak. Initiate fall precautions. PT/OT consulted. 07/13/2022 interval history: Patient states he feels very tired and weak unable to ambulate unable to use his upper extremities, need assistance with his ADLs, today patient states has a poor appetite feels he is losing weight, will consult dietitian may benefit supplements, family is not able to take care of him, will have PT OT evaluate the patient, today patient complains pain start the patient on tramadol, will low dose gabapentin, will discuss with care management for possible placement. (2) Chronic diastolic congestive heart failure: Code(s): I50.32 - Chronic diastolic (congestive) heart failure Status: Acute Assessment and Plan: He appears clinically compensated with minimal lower extremity edema. Much improved compared to last time I saw this patient. Continue diuretics as prescribed. (3) Type 2 diabetes mellitus: Qualifiers: Diabetes mellitus intermodal dispatcher insulin use: without intermodal dispatcher use Diabetes mellitus complication status: without complication Qualified Code(s): E11.9 - Type 2 diabetes mellitus without complications Code(s): E11.9 - Type 2 diabetes mellitus without complications Status: Chronic Assessment and Plan: Random glucose is 189. Continue Jardiance. Initiate sliding scale insulin, Accu-Cheks, and hypoglycemic protocol. (4) Elevated lactic acid level: Code(s): R79.89 - Other specified abnormal findings of blood chemistry Status: Acute Assessment and Plan: Suspect related to draw technique or poor hepatic clearance. He gives no history to suggest underlying infection. (5) Chronic anemia: Code(s): D64.9 - Anemia, unspecified Status: Acute Assessment and Plan: Stable on review of previous labs. DS: Summary Hospital Course Reason for hospitalization: Weakness and fatigue. Narrative: This is a very pleasant 81-year-old male with congestive heart failure, severe pulmonary hypertension, coronary artery disease, chronic respiratory failure with hypoxia, chronic obstructive pulmonary disease, paroxysmal atrial fibrillation, type 2 diabetes mellitus, and other comorbidities who presented to the emergency department from home for evaluation of of weakness and fatigue. He was recently in rehab for 2 weeks and reports doing quite well. He has been home for about 12 days and initially he did okay however these past 4 days he has once again become increasingly weak and fatigued. He uses a wheelchair at home and is gotten to the point where he is having difficulties even transferring himself to the wheelchair. This morning he was unable to get himself in the shower or shower himself and he realized that he probably needs placement in assisted living. He does remark that he took a nitroglycerin earlier today but that is not unusual for him and he has not had any further chest discomfort. He has occasional loose stools which is not new or unusual for him. He has no specific complaints and he denies focal weakness, paresthesias, syncope, near syncope, chest and pleuritic pain, shortness a breath, cold and flu symptoms, nausea, vomiting, and dysuria. Vital signs were stable on arrival to ED. Aside from a mildly elevated lac
[2022-07-14 15:59] LABS: EDCOVIDSCREEN Negative (Negative)
[2022-07-14 17:17] LABS: Glucose Point of Care 108 mg/dl (65-105)
[2022-07-14] MEDS: MELATONIN 5 MG TABLET PO (20:51)
[2022-07-14] MEDS: DONEPEZIL HCL 5 MG TABLET 10 MG PO (20:51)
[2022-07-14 21:09] LABS: Glucose Point of Care 194 mg/dl (65-105)
== END 2022-07-14 21:23 ==
LOC: ANHED 18:07 → ANH3MED 21:27
PROVIDERS: Physician Assistant; Admitting Provider Internal Medicine; Emergency Provider Physician Assistant; PCP Internal Medicine; Visit Provider Family Medicine
DX: R62.7 Adult failure to thrive (principal); Z68.25 Body mass index [BMI] 25.0-25.9, adult; J96.11 Chronic respiratory failure with hypoxia; Z99.81 Dependence on supplemental oxygen; I11.0 Hypertensive heart disease with heart failure; I50.9 Heart failure, unspecified; Z20.822 Contact with and (suspected) exposure to COVID-19; R53.1 Weakness; I48.91 Unspecified atrial fibrillation; R07.9 Chest pain, unspecified; M79.89 Other specified soft tissue disorders; N50.89 Other specified disorders of the male genital organs; M19.90 Unspecified osteoarthritis, unspecified site; I48.92 Unspecified atrial flutter; N40.0 Benign prostatic hyperplasia without lower urinary tract symptoms; G89.29 Other chronic pain; Z45.89 Encounter for adjustment and management of other implanted devices; D50.9 Iron deficiency anemia, unspecified; K74.60 Unspecified cirrhosis of liver; I27.20 Pulmonary hypertension, unspecified; G47.33 Obstructive sleep apnea (adult) (pediatric); Z87.891 Personal history of nicotine dependence; Z86.73 Personal history of transient ischemic attack (TIA), and cerebral infarction without residual deficits; Z79.52 Long term (current) use of systemic steroids; Z79.84 Long term (current) use of oral hypoglycemic drugs; Z79.899 Other long term (current) drug therapy
CPT/HCPCS: 36415; 71045; 80048; 80053; 81001; 82948; 83605; 83735; 83880; 84100; 84484; 85025; 85027; 85610; 85730; 87426; 93005; 96372; 97161; 97165; 97530; 97535; 99285; A9270; C9803; G0378; J1650; J1815

== ENCOUNTER 2023-06-01 12:01 | Inpatient (IN) | payer MEDICARE, MEDICAID, SELFPAY ==
[2023-06-01] VITALS (61 sets, daily range): BP systolic 103–159; BP diastolic 63–121; PULSE 91–133; RESP 14–40; TEMP 36.3; O2SAT 83–100
--- NOTE | ~2023-06-01 | MR_ITS ---
EXAMINATION: MR brain/brain stem wo con DATE: 06/02/2023 14:37 INDICATION: altered mental status TECHNIQUE: Magnetic resonance imaging (MRI) of the brain and brainstem was performed without intraven ous contrast. Sequences included sagittal and axial T1-weighted SE, axial diffusion-weighted FS EPI A SSET, axial T2*-weighted GRE, axial T2-weighted FLAIR Propeller, and axial T2-weighted Propeller. Jai arent diffusion coefficient (ADC) maps were created. COMPARISON: CT brain 06/01/2023, CT C-spine 02/15/2021. FINDINGS: No abnormal restricted diffusion to suggest acute ischemic infarct. Focal right medial occipital lobe encephalomalacia, likely old infarct. Stable right anterior parafalcine meningioma. No MRI evidence of hemorrhage or extra-axial collection. No suspicious foci of susceptibility to suggest prior intrap arenchymal hemorrhage. Moderate patchy white matter hyperintensity, likely representing moderate smal l vessel ischemic disease. Moderate generalized parenchymal volume loss. The basilar cisterns are pat ent. Flow voids are preserved. Trace bilateral mastoid fluid. Moderate right maxillary mucosal thicke carine. Marked sphenoid mucosal thickening. Bilateral lens replacements. Otherwise the globes and orbit al contents are within normal limits. 7 mm anterolisthesis of C3 on C4. IMPRESSION: No acute intracranial process detected. Grade 2 anterolisthesis at C3-4, new since the prior CT C-spine. Correlate with pain/tenderness and a ny history of recent trauma. Reviewed, dictated and finalized at [facility]. IMPRESSION: No acute intracranial process detected. Grade 2 anterolisthesis at C3-4, new since the prior CT C-spine. Correlate with pain/tenderness and any history of recent trauma.
--- NOTE | ~2023-06-01 | XR_ITS ---
EXAMINATION: XR hip RT 2V w AP pelvis DATE: 06/01/2023 14:11 INDICATION: Right hip pain post fall TECHNIQUE: Anteroposterior view of the pelvis and anteroposterior and frog-leg lateral views of the r ight hip were obtained. COMPARISON: None. FINDINGS: Likely intrathecal pain pump projects over the right buttock and obscures portions of the right iliac crest. Diffuse osteopenia. Bone alignment is normal. No fracture or suspected avascular necrosis. Mi ld bilateral hip and sacroiliac osteoarthritis. At least mild lower lumbar spondylosis. IMPRESSION: 1. Mild bilateral hip and sacroiliac osteoarthritis. No acute osseous abnormality. Reviewed, dictated and finalized at [facility]. IMPRESSION: 1. Mild bilateral hip and sacroiliac osteoarthritis. No acute osseous abnormali ty.
--- NOTE | ~2023-06-01 | CT_ITS ---
EXAMINATION: CT chest abdomen pelvis w con DATE: 06/01/2023 14:03 INDICATION: Shortness of breath. Sepsis. Altered mental state. TECHNIQUE: Computed tomography (CT) of the chest was performed with 100 CC Omnipaque 350 intravenous contrast. Automated exposure control and iterative reconstruction technique were employed. Exam dose: 1094.53 mGy-cm total exam DLP. COMPARISON: July 10, 2022 portable AP chest FINDINGS: There is prominent right lower lobe atelectasis and/or consolidation. The lungs otherwise a re clear of infiltrate or consolidation.. Mild to moderate emphysematous changes are suggested. Cardiomegaly. Prominent coronary artery atherosclerosis and aortic and great vessel calcifications. No pericardial or pleural effusion. No thoracic aortic aneurysm or dissection. No hilar or mediastinal mass lesion or lymphadenopathy. The gallbladder is distended. Small filling defects are suggested in the dependent aspect of the gall bladder suggesting cholelithiasis. No gallbladder wall thickening or pericholecystic fluid or fat str anding is noted. No bile duct or pancreatic duct abnormal dilatation is noted. No hepatic, splenic, pancreatic or adrenal space-occupying mass lesion. 4.5 cm exophytic left renal cyst. Occasional smaller left renal cysts. No urinary tract calculus or hydroureteronephrosis. There is atherosclerotic calcification of the abdominal aorta, iliac and femoral arteries. There is f usiform ectasia of the infrarenal abdominal aortic aneurysm which measures up to 2.9 cm diameter.. No intraperitoneal or retroperitoneal or pelvic mass lesion or adenopathy or ascites is detected. There is a prominent amount of fecal material within the rectosigmoid area. There is a wide large midline ventral abdominal wall hernia containing transverse colon and a lesser amount of sigmoid colon. No bowel obstruction, bowel wall thickening, pneumatosis or intraperitoneal free air is detected. Battery pack is noted along the lower right anterior abdominal wall. Severe osteoarthritic changes at the glenohumeral joints. Diffuse osteopenia. IMPRESSION: Right lower lobe atelectasis/consolidation Old pulmonary granulomatous disease Cardiomegaly, coronary atherosclerosis, aortic atherosclerosis Cholelithiasis Up to 4.5 cm left renal cysts Wide large midline ventral abdominal wall hernia containing transverse colon and to lesser extent sig moid colon; no bowel obstruction or strangulation Reviewed, dictated and finalized at [facility]. Reviewed, dictated and finalized at [facility]. IMPRESSION: Right lower lobe atelectasis/consolidation Old pulmonary granulomatous disease Cardiomegaly, coronary atherosclerosis, aortic atherosclerosis Cholelithiasis Up to 4.5 cm left renal cysts Wide large midline ventral abdominal wall hernia containing transverse colon an d to lesser extent sigmoid colon; no bowel obstruction or strangulation
--- NOTE | ~2023-06-01 | CT_ITS ---
EXAMINATION: CT brain wo con DATE: 06/01/2023 14:03 INDICATION: Sepsis. Altered mental state. TECHNIQUE: Computed tomography (CT) of the head was performed without intravenous contrast. The mA wa s adjusted according to patient size. Iterative reconstruction technique was employed. Exam dose: 68 1.00 mGy-cm total exam DLP. COMPARISON: 06/09/2022 CT brain FINDINGS: Bilateral vertebral artery, basilar artery and particularly prominent bilateral carotid sip hon internal carotid artery calcifications. There is nonspecific diminished attenuation of the cerebr al white matter, likely due to chronic small vessel ischemic changes. Very prominent bilateral cerebral cortical atrophy and moderate central cerebral atrophy. Old infarct, right occipital area. Stable 13 mm parafalcine right meningioma No intracranial mass lesion or hemorrhage, midline shift or mass effect. No subdural or epidural neris dain. Focal posterior mucoperiosteal thickening and possible mucous retention cyst or polyp of the right ma xillary sinus. Prominent soft tissue thickening of the floor of the sphenoid sinus. The paranasal sin uses and mastoid air cells are otherwise unremarkable. No fracture or bone destruction of the cranial vault is detected. IMPRESSION: Cerebral atherosclerosis and chronic small vessel ischemic changes of the cerebral white matter Old right occipital infarct Stable 13 mm parafalcine right meningioma Reviewed, dictated and finalized at [facility]. Reviewed, dictated and finalized at [facility].
--- NOTE | ~2023-06-01 | XR_ITS ---
EXAM: XR abdomen/kub 1V DATE: 06/07/2023 18:34 HISTORY: constipation and abd pain . COMPARISON: 07/11/2021. FINDINGS: Bibasilar atelectasis/consolidation and likely small effusions. Multiple surgical sutures over the mid abdomen. Right-sided medication pump. The rectum is dilated to 7.1 cm by formed stool, o therwise normal bowel gas pattern. No organomegaly. No abnormal abdominal calcification. Regional bon es and soft tissues normal for age. IMPRESSION: Possible fecal impaction. Reviewed, dictated and finalized at [facility]. IMPRESSION: Possible fecal impaction.
--- NOTE | 2023-06-01 12:29 | ECG_ITS ---
Measurements Intervals [place] Rate: 99 P: [place]: 0 QRS: -22 QRSD: 118 T: -21 QT: 368 QTc: 474 Interpretive Statements ATRIAL FLUTTER/TACHYCARDIA VENTRICULAR PREMATURE COMPLEX LOW QRS VOLTAGE IN LIMB LEADS PATTERN CONSISTENT WITH PULMONARY DISEASE INTRAVENTRICULAR CONDUCTION DELAY BASELINE ARTIFACT- I, II, III, AVR, AVL, AVF, V1-V6 ABNORMAL ECG COMPARED TO ECG 07/10/2022 21:05:31 INTRAVENTRICULAR CONDUCTION DELAY NOW PRESENT Electronically Signed On 06-01-2023 13:15:00 CDT by Waqas Shankar D.O.
--- NOTE | 2023-06-01 12:56 | ED.AMS ---
HPI - Altered Mental Status General Chief Complaint: Altered Mental Status Stated Complaint: diff breathing, AMS Time Seen by Provider: 06/01/23 12:28 History of Present Illness HPI narrative: 82-year-old male with a history of COPD on 3 L, CHF, dementia, diabetes, hypertension presenting with altered mental status. Patient's grand daughter is at bedside and helps with the history. States that he has not been behaving like himself for several days. States that he has been hallucinating and his speech has been difficult to understand. He was diagnosed with UTI several weeks ago but did not start antibiotics until a couple days ago. Granddaughter states that he often acts confused when his CO2 was too high. Currently, patient complains of right hip pain. He thinks that [facility] not [facility]. Related Data Home Medications Medication Instructions Recorded Confirmed ondansetron HCl 4 mg tablet 4 mg PO QID PRN Nausea 11/12/21 06/02/23 sennosides 8.6 mg-docusate sodium 1 tab-cap PO DAILY PRN Constipation 06/08/22 06/01/23 50 mg capsule acetaminophen 650 mg tablet 650 mg PO Q6H PRN Pain 06/01/23 06/01/23 diphenhydramine HCl 25 mg tablet 25 mg PO Q4H PRN Allergic Symptoms 06/01/23 06/02/23 enoxaparin 40 mg/0.4 mL 40 mg subcut DAILY 06/01/23 06/01/23 subcutaneous syringe furosemide 40 mg tablet 40 mg PO BID 06/01/23 06/01/23 hydroxyzine HCl 25 mg tablet 25 mg PO QID PRN Allergic Symptoms 06/01/23 06/01/23 ipratropium 0.5 mg-albuterol 3 mg 3 ml inhalation QID PRN Shortness 06/01/23 06/01/23 (2.5 mg base)/3 mL nebulization Of Breath Or Wheezing soln loperamide 2 mg tablet 2 mg PO Q4H PRN Diarrhea 06/01/23 06/01/23 metoprolol tartrate 37.5 mg tablet 37.5 mg PO BID 06/01/23 06/01/23 pantoprazole 40 mg tablet,delayed 40 mg PO BID 06/01/23 06/01/23 release levofloxacin 750 mg tablet 750 mg PO DAILY 06/02/23 06/02/23 miconazole nitrate 2 % topical 1 applic topical Q6H 06/02/23 06/02/23 powder naloxone 4 mg/actuation nasal 1 spray intranasal DIRECTED PRN 06/02/23 06/02/23 spray (Narcan) Respiratory Depression Allergies Allergy/AdvReac Type Severity Reaction Status Date / Time No Known Allergies Allergy Verified 06/01/23 12:24 Review of Systems Review of Systems: All systems reviewed & are unremarkable except as noted in HPI and below PMFSH Past Medical History Medical History (Updated 06/02/23 @ 00:47 by Ashley Olivo PA-C) Arthritis Atrial flutter Benign prostatic hyperplasia Cerebrovascular accident 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 Chronic anemia Chronic obstructive pulmonary disease Chronic pain Patient had a pain pump inserted in February 2019. Chronic respiratory failure with hypoxia, on home oxygen therapy Baseline oxygen requirement is 3 L nasal cannula. Congestive heart failure Echocardiogram February 2021: EF 55-60% (improved from prior echo of 45%) left ventricular septal wall motion abnormal related to bundle-branch block, grade 2 diastolic dysfunction, severe pulmonary hypertension with RVSP of 74, severe enlargement of the right atrium Coronary artery disease Gastroesophageal reflux disease History of bleeding peptic ulcer Hypertension Iron deficiency anemia Receives frequent iron infusions. Liver cirrhosis Moderate pulmonary hypertension Estimated pulmonary arterial systolic pressure was 54 mmHg on echocardiogram dated 10/25/2020. Obstructive sleep apnea Paroxysmal atrial fibrillation Pseudobulbar affect Spinal stenosis Type 2 diabetes mellitus Hemoglobin A1c was 6.3% on 10/25/2020. Surgical History Surgical History History of bilateral cataract extraction History of hernia repair 3 Family History Family History Father Acute myocardial infarction Sibling Acute myocardial infarc
[2023-06-01] MEDS: MORPHINE SULFATE (*CRX) 4 MG/ML INJ IV PUSH (13:10)
[2023-06-01] MEDS: SODIUM CHLORIDE 0.9% IV 1,000 ML 999 ML IV CONT ×2 (13:11→15:15)
[2023-06-01 13:12] LABS: Alveolar/Arterial O2 Gradient 166.3 mmHg; Base Excess ABG 9.4 mEq/l (+/-2.0); Carboxyhemoglobin 1.4 % THb (0-2.0); Fractional Inspired Oxygen 40 %; HCO3 ABG 33.9 mEq/l (22.0-26.0); Methemoglobin ABG 0.2 %THb (0-1.5); Oxygen Content ABG 16.2 %vol (16.0-22.0); Oxygen Saturation ABG 94.4 % (95.0-100.0); Oxyhemoglobin 89.9 % THb (90.0-100.0); PCO2 ABG 45.5 mmHg (35.0-45.0); PO2 ABG 66.6 mmHg (80.0-100.0); PO2 FiO2 Ratio Arterial Blood 1.66 %; Reduced Hemoglobin 8.5 %THb (0-5.0); Total Hemoglobin 12.8 g/dL (12.0-18.0)
[2023-06-01 13:12] LABS: Basophils Percent Auto 0.3 % (0.2-1.2); Hematocrit 43.1 % (42.0-52.0); Hemoglobin 12.8 g/dL (14.0-18.0); Immature Granulocyte Absolute 0.13 K/mm3 (0.00-0.031); Lymphocytes Absolute Auto 0.58 K/mm3 (0.9-3.2); Lymphocytes Percent Auto 4.5 % (18.3-44.2); Mean Corpuscular HGB Conc 29.7 g/dl (32-36); Mean Corpuscular Hemoglobin 25.3 pg (26-34); Mean Corpuscular Volume 85.2 fl (80-100); Monocytes Absolute Auto 1.3 K/mm3 (0.1-0.6); Monocytes Percent Auto 9.9 % (2.6-8.5); Neutrophils Absolute Auto 10.8 K/mm3 (1.3-6.7); Neutrophils Percent Auto 84.3 % (45.5-73.1); Platelet Count Result 380 k/mm3 (150-375); Red Blood Count 5.06 M/mm3 (4.6-6.20); Red Cell Distribution Width 21.7 % (11.5-14.5); White Blood Count 12.8 K/mm3 (4.5-10.0)
[2023-06-01 13:13] LABS: Device NASAL CANNULA; Site Drawn RIGHT BRACHIAL
[2023-06-01 13:20] LABS: Creatine Kinase 76 U/L (55-170)
[2023-06-01 13:21] LABS: Lactic Acid Reflex 1.8 mmol/L (0.7-2.0)
[2023-06-01 13:24] LABS: INR 1.1; Prothrombin Time 14.3 Seconds (11.1-14.7)
[2023-06-01 13:25] LABS: Partial Thromboplastin Time 35.8 Seconds (22.3-36.8)
[2023-06-01 13:31] LABS: Alanine Aminotransferase 13 U/L (6-50); Albumin Level 3.7 g/dL (3.5-5.1); Alkaline Phosphatase 174 U/L (38-126); Aspartate Amino Transferase 33 U/L (17-59); Bilirubin,Total 0.9 mg/dL (0.2-1.3); Blood Urea Nitrogen 20 mg/dL (9-20); Calcium 8.9 mg/dL (8.4-10.2); Carbon Dioxide > 40 mmol/L (22-30); Chloride 87 mmol/L (98-107); Estimated CRCL calculation 56 ml/min; Estimated Glomerular Filt Rate > 60; Glucose 166 mg/dL (65-110); Lipase 31 U/L (23-300); Potassium 2.9 mmol/L (3.4-5.0); Sodium 138 mmol/L (137-145)
[2023-06-01 13:38] LABS: NT Pro B Type Natriuretic Pept 6000 pg/mL (19.9-100); Troponin I 0.063 ng/mL (0.000-0.034)
[2023-06-01 13:39] LABS: Platelet Clumps Present; Platelet Estimate Adequate (Adequate)
[2023-06-01 13:40] LABS: Anisocytosis 1+; Ovalocytes 1+; Poikilocytosis 2+; Schistocytes None Seen; Target Cells 1+
[2023-06-01 13:47] LABS: Influenza A QL RT-PCR Negative (Negative); Influenza B QL RT-PCR Negative (Negative); RSV RNA, RT-PCR Negative (Negative); SARS-CoV-2 RNA PCR Negative (Negative)
[2023-06-01 13:53] LABS: Appearance Urine Clear (Clear); Bacteria Urine None Seen /hpf; Bilirubin Urine Negative (Negative); Blood Urine Trace (Negative); Color Urine Yellow (Yellow); Glucose Urine UA Negative (Negative); Ketones Urine Trace mg/dL (Negative); Leukocyte Esterase Ur 2+ LEU/UL (Negative); Nitrate Urine Negative (Negative); Protein Urine Trace mg/dL (Negative); RBC Urine 0-2 /hpf (0-2); Specific Grav Ur 1.012 (1.001-1.035); Squamous Epithelial Cell Urine None Seen /hpf (Few); Urobilinogen Urine 0.2 mg/dL (<2.0); WBC Urine 21-50 /hpf (0-3); pH Urine 5.5 (5.0-9.0)
[2023-06-01 13:58] LABS: Add Urine Microscopic? YES
[2023-06-01] MEDS: POTASSIUM CHLORIDE 20 MEQ PACKET (FOR LIQUID) 40 MEQ PO (15:20)
[2023-06-01] MEDS: cefTRIAXone 2 GM/NS 100 ML 2 GM/100 ML BAG IVPB (17:00)
[2023-06-01] MEDS: AZITHROMYCIN 500 MG/NS 250 ML 500 MG/250 ML BAG 250 MG IVPB (17:25)
[2023-06-01 21:40] LABS: Glucose Point of Care 186 mg/dl (65-105)
[2023-06-01] MEDS: SODIUM CHLORIDE 0.9% IV 1,000 ML 100 ML IV CONT (22:00)
[2023-06-01 22:41] LABS: Anion Gap 10 mmol/L (8-16); Blood Urea Nitrogen 19 mg/dL (9-20); Calcium 8.1 mg/dL (8.4-10.2); Carbon Dioxide 31 mmol/L (22-30); Chloride 96 mmol/L (98-107); Estimated CRCL calculation 71 ml/min; Estimated Glomerular Filt Rate > 60; Glucose 194 mg/dL (65-110); Magnesium 1.1 mg/dL (1.6-2.3); Potassium 3.6 mmol/L (3.4-5.0); Sodium 137 mmol/L (137-145)
[2023-06-01 22:55] LABS: Troponin I 0.072 ng/mL (0.000-0.034)
[2023-06-02] VITALS (36 sets, daily range): BP systolic 101–144; BP diastolic 55–75; PULSE 62–138; RESP 17–32; TEMP 36.1–36.8; O2SAT 91–100; BMI 25.0
--- NOTE | 2023-06-02 00:26 | PM.IMHP ---
H&P: HPI History of Present Illness Date/Time: 06/01/23 21:00 Chief Complaint: Altered mental status. Narrative: This is an 82-year-old male with congestive heart failure, severe pulmonary hypertension, coronary artery disease, chronic respiratory failure with hypoxia, chronic obstructive pulmonary disease, paroxysmal atrial fibrillation, type 2 diabetes mellitus, and other comorbidities who presented to the emergency department via EMS for evaluation of altered mental status. He is unable to provide an accurate history given his current clinical condition and a majority the following is obtained via a review of his electronic medical records as well as information provided by his granddaughter. He has reportedly not been acting like himself for several days. He has been hallucinating and family members report difficulties understanding what he is trying to say. It is my understanding that he was diagnosed with urinary tract infection a couple of weeks ago however just started his antibiotics a couple of days ago for unclear reasons. Granddaughter has previously seen him in a similar state when he was retaining CO2 and she was concerned for that. On arrival to the ED was complaining of right hip pain and he reports having a possible fall at the senior living although the granddaughter was never told of that. At the time my evaluation the patient is alert and attempts to communicate but his mouth is extremely dry and he has difficulties forming words and when he does try to talk it is only stuttering. In the ED: He was afebrile on arrival. Blood pressures have been stable. Heart rate has ranged between the 90s to 130s. At times it looks as though he is in atrial fibrillation/flutter and other times it appears to be sinus tachycardia with ectopy. He is mildly tachypneic but appears in no respiratory distress and is currently on 4 L nasal cannula. Labs were significant for WBC count of 12.8, hemoglobin 12.8, platelet 380, sodium 138, potassium 2.9, chloride 87, carbon dioxide 40, glucose 166, troponin 0.063, proBNP 6000. Urine was positive for trace ketones, 2+ leukocyte esterase, 21 to 50 WBC; no bacteria were noted on microscopy. Brain CT showed no acute findings. CT of the chest, abdomen, and pelvis showed right lower lobe atelectasis/consolidation with no other acute findings. Pelvis and hip x-ray showed mild bilateral hip and sacroiliac osteoarthritis. He was given a dose of azithromycin, ceftriaxone, 2 L normal saline, and 40 mg of potassium chloride and he is being admitted in this setting for further treatment and evaluation. Review of Systems Review of Systems: Unable to be obtained accurately given clinical condition as above. [facility] Past Medical History Medical History (Updated 06/02/23 @ 00:47 by Ashley Olivo PA-C) Arthritis Atrial flutter Benign prostatic hyperplasia Cerebrovascular accident 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 Chronic anemia Chronic obstructive pulmonary disease Chronic pain Patient had a pain pump inserted in February 2019. Chronic respiratory failure with hypoxia, on home oxygen therapy Baseline oxygen requirement is 3 L nasal cannula. Congestive heart failure Echocardiogram February 2021: EF 55-60% (improved from prior echo of 45%) left ventricular septal wall motion abnormal related to bundle-branch block, grade 2 diastolic dysfunction, severe pulmonary hypertension with RVSP of 74, severe enlargement of the right atrium Coronary artery disease Gastroesophageal reflux disease History of bleeding peptic ulcer Hypertension Iron deficiency anemia Receives frequent iron infusions. Liver cirrhosis Moderate pulmonary hypertension Estimated pulmonary arterial systolic pressure was 54 mmHg on echocardiogram dated 10/25/2020. Obstructive sleep apnea Paroxysmal atrial fibrillation Pseudobulbar affect Spinal stenosis Type 2 diabetes mellitus Hemoglobin A1c was 6.3% on 10/14
--- NOTE | 2023-06-02 02:00 | PC.NURSE ---
Pt depend changed prior to leaving the department. Pt belongings and paperwork on the bed with the pt.
--- NOTE | 2023-06-02 02:28 | PC.NURSE ---
Patient unable to answer questions appropriately. His admission information was pulled forward from a prior admit, and/or entered from custodial documentation.
[2023-06-02 02:33] LABS: Hematocrit 38.3 % (42.0-52.0); Mean Corpuscular HGB Conc 28.7 g/dl (32-36); Mean Corpuscular Hemoglobin 25.2 pg (26-34); Mean Corpuscular Volume 87.6 fl (80-100); Mean Platelet Volume 10.2 fl (7.4-10.4); Platelet Count Result 352 k/mm3 (150-375); Red Blood Count 4.37 M/mm3 (4.6-6.20); Red Cell Distribution Width 21.7 % (11.5-14.5); White Blood Count 15.5 K/mm3 (4.5-10.0)
--- NOTE | 2023-06-02 02:39 | ADMGEN ---
0205: This patient, Zack Orellana, was admitted to IMU Room 202-01. Patient/family oriented to hospital policies and general routines including ID bracelet, bed and alarms, visiting hours, pain management, procedures, bathroom and other care routines, personal items, smoking policy, room service/diet, and visiting hours. Information on how to activate the Rapid Response Team has been discussed. Patient/Family are encouraged to report perceived risks to care and to ask questions if they do not understand what they are told or what they should do.
[2023-06-02] MEDS: IPRATROPIUM 0.5 MG/ALBUTEROL SULFATE 2.5 MG AMPUL.NEB 3 ML INHALATION ×4 (02:41→20:35)
[2023-06-02 02:47] LABS: Ammonia < 9 umol/L (9-30)
[2023-06-02 02:49] LABS: Anion Gap 6 mmol/L (8-16); Blood Urea Nitrogen 19 mg/dL (9-20); Calcium 8.4 mg/dL (8.4-10.2); Carbon Dioxide 36 mmol/L (22-30); Chloride 98 mmol/L (98-107); Estimated CRCL calculation 62 ml/min; Estimated Glomerular Filt Rate > 60; Glucose 187 mg/dL (65-110); Potassium 3.3 mmol/L (3.4-5.0); Sodium 140 mmol/L (137-145)
--- NOTE | 2023-06-02 02:56 | PC.NURSE ---
The patient appears to be on continuous morphine at the NH he is from (per [place] documentation). The concentration and route was not provided and couldn't be entered into the medication list. Discussed this with the primary care RN.
[2023-06-02] MEDS: MAGNESIUM SULFATE 3GM/D5W100ML 3 GM/100 ML BAG IVPB (04:15)
[2023-06-02 07:55] LABS: Magnesium 2.1 mg/dL (1.6-2.3)
[2023-06-02 08:23] LABS: Glucose Point of Care 224 mg/dl (65-105)
[2023-06-02] MEDS: INSULIN ASPART (*BKC) 100 UNITS/ML SUB-Q (08:45)
[2023-06-02 11:59] LABS: Glucose Point of Care 202 mg/dl (65-105)
--- NOTE | 2023-06-02 14:44 | PM.IMPN ---
Progress Note: A&P Assessment and Plan (1) Tachycardia: Code(s): R00.0 - Tachycardia, unspecified Status: Acute (2) Hypokalemia: Code(s): E87.6 - Hypokalemia Status: Acute (3) Pneumonia: Code(s): J18.9 - Pneumonia, unspecified organism Status: Acute (4) UTI (urinary tract infection): Code(s): N39.0 - Urinary tract infection, site not specified Status: Acute Plan ?82-year-old male with congestive heart failure, severe pulmonary hypertension, coronary artery disease, chronic respiratory failure with hypoxia, chronic obstructive pulmonary disease, paroxysmal atrial fibrillation, type 2 diabetes mellitus, presented with altered mental status. 1. Acute encephalopathy: ? Related to infection Concern for UTI, pneumonia Previous urine culture has grew ESBL Will switch to cefepime Continue with azithromycin decrease fluids to 50 cc an hour MRI pending NPO until mental status is better 2. Diabetes mellitus: Blood glucose check q.6 hours Sliding scale insulin 3. Hypokalemia: Supplement potassium 4. Code status: Full 5. DVT prophylaxis: Lovenox 6. Disposition: Pending improvement Time Spent With Patient Time with patient: 15 - 25 minutes Subjective Date/time seen: 06/02/23 14:44 Interval history: Mental status unchanged Review of Systems Review of Systems: ROS unobtainable: Yes unobtainable due to mental status Exam Narrative: General:?ill-appearing elderly gentleman HEENT:?Normocephalic, atraumatic. Mucous membranes are dry. Neck:??Supple. No obvious lymphadenopathy, thyromegaly, JVD, or bruits. Respiratory:?Lung sounds are a bit diminished Cardiovascular:?Tachycardic with frequent ectopy with periods of what looks like atrial fibrillation or flutter. Systolic murmur heard at the upper sternal border. Gastrointestinal:??Abdomen is soft and nondistended with positive bowel sounds. He has large ventral hernias which are reducible and do not seem to be tender to palpation. Skin:??Warm and dry. Generalized pallor. Chronic raised, fibrotic nodules and areas of lichenification on the right miner. Scattered bruising on the upper extremities. There are some areas of breakdown over the buttocks and coccyx without evidence of infection. Extremities:??No cyanosis, clubbing, or significant edema. Neurological:??letargic Psychiatric: Unable to assess. Objective Data Vital Signs Vital Signs: Vital Signs - 24 hr 06/01/23 19:36 06/01/23 16:00 06/01/23 16:01 Temperature Pulse Rate 102 H 116 H Respiratory Rate 24 H 24 H 32 H Blood Pressure 131/73 159/121 H Pulse Oximetry 98 100 100 Oxygen Delivery Oxygen Flow Rate 06/01/23 16:15 06/01/23 16:16 06/01/23 16:30 Temperature Pulse Rate 124 H Respiratory Rate 38 H 16 37 H Blood Pressure 134/71 Pulse Oximetry 98 100 100 Oxygen Delivery Oxygen Flow Rate 06/01/23 16:31 06/01/23 16:45 06/01/23 16:46 Temperature Pulse Rate 106 H 108 H Respiratory Rate 36 H 35 H 36 H Blood Pressure 138/72 138/88 Pulse Oximetry 100 98 99 Oxygen Delivery Oxygen Flow Rate 06/01/23 17:00 06/01/23 17:02 06/01/23 17:15 Temperature Pulse Rate 104 H 102 H 99 Respiratory Rate 30 H 30 H 37 H Blood Pressure 135/75 Pulse Oximetry 98 97 95 Oxygen Delivery Oxygen Flow Rate 06/01/23 17:16 06/01/23 17:30 06/01/23 17:31 Temperature Pulse Rate 103 H 116 H Respiratory Rate 31 H 39 H 28 H Blood Pressure 121/92 H 111/84 Pulse Oximetry 97 97 96 Oxygen Delivery Oxygen Flow Rate 06/01/23 17:45 06/01/23 17:47 06/01/23 18:00 Temperature Pulse Rate 108 H 96 113 H Respiratory Rate 39 H 36 H 40 H Blood Pressure 125/74 Pulse Oximetry 96 95 98 Oxygen Delivery Oxygen Flow Rate 06/01/23 18:01 06/01/23 18:15 06/01/23 18:16 Temperature Pulse Rate 106 H 95 103 H Respiratory Rate 24 H 39 H 36 H Blood Pressure 121/107 H 112/90 Pulse Oximetry 98
[2023-06-02 16:28] LABS: Glucose Point of Care 166 mg/dl (65-105)
[2023-06-02] MEDS: CEFEPIME 1 GM/NS 50 ML 1 GM/50 ML BAG IVPB (17:04)
[2023-06-02] MEDS: SODIUM CHLORIDE 0.9% IV 1,000 ML 50 ML IV CONT (17:13)
[2023-06-02] MEDS: AZITHROMYCIN 500 MG/NS 250 ML 500 MG/250 ML BAG 250 MG IVPB (17:45)
[2023-06-02] MEDS: KCL 20 MEQ/SW 100 ML 100 ML 50 MEQ IVPB (18:55)
[2023-06-02 21:06] LABS: Glucose Point of Care 196 mg/dl (65-105)
--- NOTE | 2023-06-02 23:26 | PC.NURSE ---
Patient reporting pain in R shoulder. Patient has chronic pain and has a pain pump. Day RN, Alina, reported that the pain pump activity coordinator came and tested the pump today on her shift. RN will reach out to cross cover provider to discuss breakthrough pain.
[2023-06-03] VITALS (28 sets, daily range): BP systolic 99–140; BP diastolic 40–85; PULSE 73–112; RESP 16–23; TEMP 36.4–36.9; O2SAT 90–98
[2023-06-03 00:44] LABS: Glucose Point of Care 201 mg/dl (65-105)
[2023-06-03] MEDS: INSULIN ASPART (*BKC) 100 UNITS/ML SUB-Q ×2 (01:16→17:24)
[2023-06-03] MEDS: MORPHINE SULFATE (*CRX) 2 MG/ML INJ 1 MG IV PUSH (01:32)
[2023-06-03] MEDS: IPRATROPIUM 0.5 MG/ALBUTEROL SULFATE 2.5 MG AMPUL.NEB 3 ML INHALATION ×4 (01:42→20:20)
[2023-06-03] MEDS: HYDROmorphone HCL INJ (*CRX) 1 MG/ML SYR IV PUSH (03:31)
[2023-06-03] MEDS: CEFEPIME 1 GM/NS 50 ML 1 GM/50 ML BAG IVPB ×2 (03:34→15:08)
[2023-06-03] MEDS: SODIUM CHLORIDE 0.9% IV 1,000 ML 50 ML IV CONT (03:36)
[2023-06-03 05:19] LABS: Anion Gap 3 mmol/L (8-16); Blood Urea Nitrogen 18 mg/dL (9-20); Calcium 9.1 mg/dL (8.4-10.2); Carbon Dioxide 37 mmol/L (22-30); Chloride 105 mmol/L (98-107); Estimated CRCL calculation 84 ml/min; Estimated Glomerular Filt Rate > 60; Glucose 172 mg/dL (65-110); Potassium 3.1 mmol/L (3.4-5.0); Sodium 145 mmol/L (137-145)
[2023-06-03] MEDS: fentaNYL CITRATE INJ (*CRX) 100 MCG/2 ML VIAL 50 MCG IV PUSH (06:07)
[2023-06-03 07:55] LABS: Basophils Percent Auto 0.3 % (0.2-1.2); Eosinophils Percent Auto 0.1 % (0-4.4); Hematocrit 37.9 % (42.0-52.0); Hemoglobin 10.4 g/dL (14.0-18.0); Immature Granulocyte Absolute 0.13 K/mm3 (0.00-0.031); Immature Granulocyte Percent A 1.1 % (0-0.5); Lymphocytes Absolute Auto 0.39 K/mm3 (0.9-3.2); Lymphocytes Percent Auto 3.4 % (18.3-44.2); Mean Corpuscular HGB Conc 27.4 g/dl (32-36); Mean Corpuscular Volume 91.1 fl (80-100); Mean Platelet Volume 10.1 fl (7.4-10.4); Monocytes Absolute Auto 0.9 K/mm3 (0.1-0.6); Monocytes Percent Auto 8.1 % (2.6-8.5); Neutrophils Absolute Auto 10.1 K/mm3 (1.3-6.7); Platelet Count Result 287 k/mm3 (150-375); Red Blood Count 4.16 M/mm3 (4.6-6.20); Red Cell Distribution Width 21.7 % (11.5-14.5); White Blood Count 11.6 K/mm3 (4.5-10.0)
[2023-06-03 08:16] LABS: Hypochromasia 2+; Platelet Estimate Adequate (Adequate); Schistocytes None Seen
[2023-06-03 08:17] LABS: Polychromasia 1+; Stomatocytes 1+
[2023-06-03] MEDS: FERROUS SULFATE 325 MG TABLET DR PO (08:46)
[2023-06-03] MEDS: PANTOPRAZOLE 40 MG TABLET PO ×2 (08:46→17:24)
[2023-06-03] MEDS: MORPHINE SULFATE (*CRX) 2 MG/ML INJ IV PUSH ×3 (08:46→21:12)
[2023-06-03] MEDS: METOPROLOL TARTRATE TAB 25 MG, METOPROLOL TARTRATE TAB 12.5 MG 37.5 MG PO ×2 (08:46→21:12)
[2023-06-03] MEDS: ENOXAPARIN 40 MG/0.4 ML SYRINGE SUB-Q (08:47)
[2023-06-03] MEDS: POTASSIUM CHLORIDE 20 MEQ PACKET (FOR LIQUID) 40 MEQ BY MOUTH ×2 (09:38→17:24)
--- NOTE | 2023-06-03 10:18 | PCSTNOTE ---
Please refer to the Bedside Swallow Evaluation in the EMR. Please note, silent aspiration cannot be ruled out at bedside.
[2023-06-03 12:07] LABS: Glucose Point of Care 171 mg/dl (65-105)
--- NOTE | 2023-06-03 13:13 | PM.IMPN ---
Progress Note: A&P Assessment and Plan (1) Tachycardia: Code(s): R00.0 - Tachycardia, unspecified Status: Acute (2) Hypokalemia: Code(s): E87.6 - Hypokalemia Status: Acute (3) Pneumonia: Code(s): J18.9 - Pneumonia, unspecified organism Status: Acute (4) UTI (urinary tract infection): Code(s): N39.0 - Urinary tract infection, site not specified Status: Acute Plan ?82-year-old male with congestive heart failure, severe pulmonary hypertension, coronary artery disease, chronic respiratory failure with hypoxia, chronic obstructive pulmonary disease, paroxysmal atrial fibrillation, type 2 diabetes mellitus, presented with altered mental status. 1. Acute encephalopathy: ? Related to infection versus narcotic overdose Patient has not been receiving his pain medications from pain pump since admission Patient is more awake and alert Will start on IV morphine p.r.n. along with p.r.n. Percocet to prevent him from going into withdrawal Also concern for UTI, pneumonia Previous urine culture has grew ESBL Continue with cefepime Continue with azithromycin Discontinue IV fluids MRI brain unremarkable Appreciate speech eval, will start on diet 2. Diabetes mellitus: Blood glucose check t.i.d. a.c. and HS Sliding scale insulin 3. Hypokalemia: Supplement potassium 4. Code status: Full 5. DVT prophylaxis: Lovenox 6. Disposition: Pending improvement Time Spent With Patient Time with patient: 15 - 25 minutes Subjective Date/time seen: 06/03/23 13:13 Interval history: Mental status has remarkably improved, awake and alert Review of Systems Review of Systems: All systems reviewed & are unremarkable except as noted in HPI and below Exam Narrative: General:?ill-appearing elderly gentleman HEENT:?Normocephalic, atraumatic. Neck:??Supple. No obvious lymphadenopathy, thyromegaly, JVD, or bruits. Respiratory:?Lung sounds are a bit diminished Cardiovascular:?Tachycardic with frequent ectopy with periods of what looks like atrial fibrillation or flutter. Systolic murmur heard at the upper sternal border. Gastrointestinal:??Abdomen is soft and nondistended with positive bowel sounds. He has large ventral hernias which are reducible and do not seem to be tender to palpation. Skin:??Warm and dry. Generalized pallor. Chronic raised, fibrotic nodules and areas of lichenification on the right miner. Scattered bruising on the upper extremities. There are some areas of breakdown over the buttocks and coccyx without evidence of infection. Extremities:??No cyanosis, clubbing, or significant edema. Neurological:??Awake and alert Psychiatric: Calmer and cooperative. Objective Data Vital Signs Vital Signs: Vital Signs - 24 hr 06/02/23 13:19 06/02/23 13:20 06/02/23 13:29 Temperature Pulse Rate 100 104 H Respiratory Rate 20 20 Blood Pressure Pulse Oximetry 96 Oxygen Delivery Nasal Cannula Oxygen Flow Rate 3 06/02/23 14:00 06/02/23 16:00 06/02/23 16:00 Temperature Pulse Rate 94 92 Respiratory Rate Blood Pressure Pulse Oximetry 94 Oxygen Delivery Nasal Cannula Oxygen Flow Rate 4 06/02/23 16:00 06/02/23 20:10 06/02/23 20:36 Temperature 98.0 F 98.2 F Pulse Rate 91 88 103 H Respiratory Rate 20 20 20 Blood Pressure 128/71 121/57 L Pulse Oximetry 99 91 Oxygen Delivery Oxygen Flow Rate 06/02/23 20:43 06/02/23 20:00 06/02/23 22:00 Temperature Pulse Rate 100 96 100 Respiratory Rate 20 Blood Pressure Pulse Oximetry Oxygen Delivery Oxygen Flow Rate 06/02/23 20:00 06/02/23 23:53 06/02/23 21:00 Temperature 97.0 F L Pulse Rate 101 H Respiratory Rate 20 Blood Pressure 140/72 Pulse Oximetry 91 94 95 Oxygen Delivery Nasal Cannula Nasal Cannula Oxygen Flow Rate 3 3 06/03/23 01:43 06/03/23 01:50 06/03/23 00:00 Temperature Pulse Rate 112 H 94 92 Respiratory Rate 20 20 Blood Pressu
[2023-06-03 16:52] LABS: Glucose Point of Care 256 mg/dl (65-105)
[2023-06-03] MEDS: AZITHROMYCIN 500 MG/NS 250 ML 500 MG/250 ML BAG 250 MG IVPB (17:24)
[2023-06-03 20:53] LABS: Glucose Point of Care 124 mg/dl (65-105)
[2023-06-04] VITALS (20 sets, daily range): BP systolic 115–121; BP diastolic 58–73; PULSE 74–99; RESP 16–24; TEMP 36.2–36.6; O2SAT 91–94
[2023-06-04] MEDS: MORPHINE SULFATE (*CRX) 2 MG/ML INJ IV PUSH ×2 (01:13→08:49)
[2023-06-04] MEDS: fentaNYL CITRATE INJ (*CRX) 100 MCG/2 ML VIAL 50 MCG IV PUSH (03:39)
[2023-06-04] MEDS: CEFEPIME 1 GM/NS 50 ML 1 GM/50 ML BAG IVPB (03:42)
--- NOTE | 2023-06-04 04:29 | PCRCNOTE ---
Pt a little confused a refused his 0200 neb tx at this time
[2023-06-04 05:08] LABS: Basophils Percent Auto 0.3 % (0.2-1.2); Eosinophils Absolute Auto 0.1 K/mm3 (0-0.3); Eosinophils Percent Auto 1.1 % (0-4.4); Hematocrit 34.5 % (42.0-52.0); Hemoglobin 9.7 g/dL (14.0-18.0); Immature Granulocyte Absolute 0.08 K/mm3 (0.00-0.031); Immature Granulocyte Percent A 0.9 % (0-0.5); Lymphocytes Absolute Auto 0.51 K/mm3 (0.9-3.2); Lymphocytes Percent Auto 5.6 % (18.3-44.2); Mean Corpuscular HGB Conc 28.1 g/dl (32-36); Mean Corpuscular Hemoglobin 24.9 pg (26-34); Mean Corpuscular Volume 88.7 fl (80-100); Mean Platelet Volume 10.3 fl (7.4-10.4); Monocytes Absolute Auto 0.8 K/mm3 (0.1-0.6); Monocytes Percent Auto 8.6 % (2.6-8.5); Neutrophils Absolute Auto 7.7 K/mm3 (1.3-6.7); Neutrophils Percent Auto 83.5 % (45.5-73.1); Platelet Count Result 236 k/mm3 (150-375); Red Blood Count 3.89 M/mm3 (4.6-6.20); Red Cell Distribution Width 21.5 % (11.5-14.5); White Blood Count 9.2 K/mm3 (4.5-10.0)
[2023-06-04 05:25] LABS: Blood Urea Nitrogen 14 mg/dL (9-20); Calcium 8.9 mg/dL (8.4-10.2); Carbon Dioxide 39 mmol/L (22-30); Chloride 96 mmol/L (98-107); Estimated CRCL calculation 102 ml/min; Estimated Glomerular Filt Rate > 60; Glucose 134 mg/dL (65-110); Magnesium 1.8 mg/dL (1.6-2.3); Potassium 4.1 mmol/L (3.4-5.0)
[2023-06-04 05:31] LABS: Anion Gap 0 mmol/L (8-16); Sodium 135 mmol/L (137-145)
[2023-06-04 05:35] LABS: Anisocytosis 1+; Hypochromasia 1+; Ovalocytes 1+; Platelet Estimate Adequate (Adequate); Poikilocytosis 1+; Schistocytes None Seen
[2023-06-04] MEDS: IPRATROPIUM 0.5 MG/ALBUTEROL SULFATE 2.5 MG AMPUL.NEB 3 ML INHALATION ×3 (08:15→20:55)
[2023-06-04 08:32] LABS: Glucose Point of Care 124 mg/dl (65-105)
[2023-06-04] MEDS: ENOXAPARIN 40 MG/0.4 ML SYRINGE SUB-Q (08:51)
[2023-06-04] MEDS: METOPROLOL TARTRATE TAB 25 MG, METOPROLOL TARTRATE TAB 12.5 MG 37.5 MG PO ×2 (08:52→20:42)
[2023-06-04] MEDS: PANTOPRAZOLE 40 MG TABLET PO ×2 (08:52→16:35)
[2023-06-04] MEDS: FERROUS SULFATE 325 MG TABLET DR PO (08:53)
[2023-06-04] MEDS: cefuroxime axetiL 250 MG TABLET 500 MG PO ×2 (09:56→20:47)
--- NOTE | 2023-06-04 10:51 | PCNFU ---
Nutrition Follow-Up Complete: Inadequate energy intake related to no diet order and lack of alertness as evidenced by nursing report. Goal:Meet estimated needs Pt current nutrition is Minced and moist level 5, Ensure compact BID. Nutrition recommendation: switch to Ensure Enlive TID Last recorded weight is 78.5 kg. Bowel Motility: +BM 06/02 Labs Reviewed: Hgb:9.7, HCT:34.5, NA:135, Cr:0.4, Glu:124 Meds Noted: novolog, lovenox, protonix Skin: DTPI to Left and Right heels Additional Notes: Pt alert and oriented today, states fair appetite, on minced and moist level 5 due to poor dentition, drinks Ensure regularly. Will switch to Ensure Enlive and increased to TID. Also will add MARKY BID for wound healing. Monitor for intake, wt, labs. Follow up in 5 days
[2023-06-04 12:10] LABS: Glucose Point of Care 130 mg/dl (65-105)
[2023-06-04 12:40] LABS: Mycoplasma IgM Antibody Titer 370 U/mL (<770)
--- NOTE | 2023-06-04 14:56 | PM.IMPN ---
Progress Note: A&P Assessment and Plan (1) Tachycardia: Code(s): R00.0 - Tachycardia, unspecified Status: Acute (2) Hypokalemia: Code(s): E87.6 - Hypokalemia Status: Acute (3) Pneumonia: Code(s): J18.9 - Pneumonia, unspecified organism Status: Acute (4) UTI (urinary tract infection): Code(s): N39.0 - Urinary tract infection, site not specified Status: Acute Plan ?82-year-old male with congestive heart failure, severe pulmonary hypertension, coronary artery disease, chronic respiratory failure with hypoxia, chronic obstructive pulmonary disease, paroxysmal atrial fibrillation, type 2 diabetes mellitus, presented with altered mental status. 1. Acute encephalopathy: ? Related to infection versus narcotic overdose Fifteen was started on IV morphine and Percocet yesterday to prevent any withdrawal from opioids, as he gets pain medications through his pain pump Received additional IV fentanyl Little lethargic as compared to yesterday Patient is more awake and alert Will decrease IV morphine to 1 mg Q 6 p.r.n., will continue with Percocet Urine culture is negative Will discontinue cefepime, changed to cefuroxime Continue with azithromycin to complete 5 day course MRI brain unremarkable Appreciate speech eval, 2. Diabetes mellitus: Blood glucose check t.i.d. a.c. and HS Sliding scale insulin 3. Hypokalemia: Resolved 4. Code status: Full 5. DVT prophylaxis: Lovenox 6. Disposition: Pending improvement Time Spent With Patient Time with patient: 15 - 25 minutes Subjective Date/time seen: 06/04/23 14:56 Interval history: Again looked lethargic this morning Review of Systems Review of Systems: ROS unobtainable: Yes unobtainable due to mental status Exam Narrative: General:?ill-appearing elderly gentleman HEENT:?Normocephalic, atraumatic. Neck:??Supple. No obvious lymphadenopathy, thyromegaly, JVD, or bruits. Respiratory:?Lung sounds are a bit diminished Cardiovascular:?S1S2 present Gastrointestinal:??Abdomen is soft and nondistended with positive bowel sounds. He has large ventral hernias which are reducible and do not seem to be tender to palpation. Skin:??Warm and dry. Generalized pallor. Chronic raised, fibrotic nodules and areas of lichenification on the right miner. Scattered bruising on the upper extremities. There are some areas of breakdown over the buttocks and coccyx without evidence of infection. Extremities:??No cyanosis, clubbing, or significant edema. Neurological:??Less awake as compared to yesterday Psychiatric: Calmer . Objective Data Vital Signs Vital Signs: Vital Signs - 24 hr 06/03/23 15:59 06/03/23 16:00 06/03/23 16:00 Temperature 97.9 F Pulse Rate 89 81 Respiratory Rate 21 H Blood Pressure 99/48 L Pulse Oximetry 90 90 Oxygen Delivery Nasal Cannula Oxygen Flow Rate 3 Fraction of Inspired Oxygen 06/03/23 18:00 06/03/23 20:00 06/03/23 20:23 Temperature 97.8 F Pulse Rate 92 88 92 Respiratory Rate 20 20 Blood Pressure 111/85 Pulse Oximetry 93 Oxygen Delivery Oxygen Flow Rate Fraction of Inspired Oxygen 06/03/23 20:27 06/03/23 20:33 06/03/23 21:12 Temperature Pulse Rate 93 93 Respiratory Rate 20 Blood Pressure Pulse Oximetry 93 Oxygen Delivery Nasal Cannula Oxygen Flow Rate 3 Fraction of Inspired Oxygen 06/03/23 20:00 06/03/23 20:00 06/03/23 22:00 Temperature Pulse Rate 83 82 Respiratory Rate Blood Pressure Pulse Oximetry 93 Oxygen Delivery Nasal Cannula Oxygen Flow Rate 3 Fraction of Inspired Oxygen 06/03/23 23:54 06/04/23 00:00 06/04/23 00:00 Temperature 97.8 F Pulse Rate 85 81 Respiratory Rate 16 Blood Pressure 100/40 L Pulse Oximetry 94 94 Oxygen Delivery Nasal Cannula Oxygen Flow Rate 3 Fraction of Inspired Oxygen 06/04/23 02:00 06/04/23 03:15 06/04/23 03:18 Temperature 97.8 F Pulse Rate
--- NOTE | 2023-06-04 16:25 | PC.NURSE ---
Received from [facility] via bed.
[2023-06-04 16:30] LABS: Glucose Point of Care 245 mg/dl (65-105)
[2023-06-04 16:35] LABS: Glucose Point of Care 225 mg/dl (65-105)
[2023-06-04] MEDS: AZITHROMYCIN 500 MG/NS 250 ML 500 MG/250 ML BAG 250 MG IVPB (16:35)
[2023-06-04] MEDS: INSULIN ASPART (*BKC) 100 UNITS/ML SUB-Q (16:37)
--- NOTE | 2023-06-04 16:54 | PC.NURSE ---
This patient, Zack Orellana, was transferred to [facility] on 06/04/23 at 1615. Personal belongings sent with patient. Report given to Jessica. Appropriate documentation sent with patient.
[2023-06-04] MEDS: oxyCODONE/ACETAMINOPHEN (*CRX) 5-325 MG TABLET 1 TABLET PO ×2 (17:43→22:02)
[2023-06-04 21:06] LABS: Glucose Point of Care 270 mg/dl (65-105)
[2023-06-04 23:20] LABS: Pneumococcal Antigen Urine Not Detected (Not Detected)
[2023-06-05] VITALS (18 sets, daily range): BP systolic 98–119; BP diastolic 48–62; PULSE 65–89; RESP 12–20; TEMP 35.8–37; O2SAT 61–95
[2023-06-05] MEDS: IPRATROPIUM 0.5 MG/ALBUTEROL SULFATE 2.5 MG AMPUL.NEB 3 ML INHALATION ×4 (02:40→21:22)
[2023-06-05 06:14] LABS: Basophils Percent Auto 0.1 % (0.2-1.2); Eosinophils Absolute Auto 0.2 K/mm3 (0-0.3); Hematocrit 32.1 % (42.0-52.0); Hemoglobin 9.4 g/dL (14.0-18.0); Immature Granulocyte Absolute 0.07 K/mm3 (0.00-0.031); Immature Granulocyte Percent A 0.9 % (0-0.5); Lymphocytes Absolute Auto 0.55 K/mm3 (0.9-3.2); Lymphocytes Percent Auto 7.4 % (18.3-44.2); Mean Corpuscular HGB Conc 29.3 g/dl (32-36); Mean Corpuscular Hemoglobin 25.6 pg (26-34); Mean Corpuscular Volume 87.5 fl (80-100); Mean Platelet Volume 10.5 fl (7.4-10.4); Monocytes Absolute Auto 0.8 K/mm3 (0.1-0.6); Monocytes Percent Auto 10.8 % (2.6-8.5); Neutrophils Absolute Auto 5.8 K/mm3 (1.3-6.7); Neutrophils Percent Auto 78.8 % (45.5-73.1); Platelet Count Result 195 k/mm3 (150-375); Red Blood Count 3.67 M/mm3 (4.6-6.20); Red Cell Distribution Width 21.3 % (11.5-14.5); White Blood Count 7.4 K/mm3 (4.5-10.0)
[2023-06-05] MEDS: MORPHINE SULFATE (*CRX) 2 MG/ML INJ 1 MG IV PUSH (06:15)
[2023-06-05 06:28] LABS: Blood Urea Nitrogen 14 mg/dL (9-20); Chloride 98 mmol/L (98-107); Estimated Glomerular Filt Rate > 60; Potassium 4.2 mmol/L (3.4-5.0); Sodium 133 mmol/L (137-145)
[2023-06-05 07:55] LABS: Anion Gap 0 mmol/L (8-16); Calcium 8.8 mg/dL (8.4-10.2); Carbon Dioxide 35 mmol/L (22-30); Estimated CRCL calculation 84 ml/min; Glucose 139 mg/dL (65-110)
[2023-06-05] MEDS: ENOXAPARIN 40 MG/0.4 ML SYRINGE SUB-Q (08:24)
[2023-06-05] MEDS: PANTOPRAZOLE 40 MG TABLET PO ×2 (08:25→16:24)
[2023-06-05] MEDS: FERROUS SULFATE 325 MG TABLET DR PO (08:25)
[2023-06-05] MEDS: METOPROLOL TARTRATE TAB 25 MG, METOPROLOL TARTRATE TAB 12.5 MG 37.5 MG PO ×2 (08:25→20:46)
[2023-06-05 08:27] LABS: Glucose Point of Care 145 mg/dl (65-105)
[2023-06-05] MEDS: cefuroxime axetiL 250 MG TABLET 500 MG PO ×2 (09:04→20:46)
[2023-06-05 09:18] LABS: Anisocytosis 1+; Hypochromasia 2+; Ovalocytes 1+; Platelet Estimate Adequate (Adequate); Schistocytes Rare
[2023-06-05] MEDS: oxyCODONE/ACETAMINOPHEN (*CRX) 5-325 MG TABLET 1 TABLET PO ×2 (09:44→15:36)
[2023-06-05 12:02] LABS: Glucose Point of Care 208 mg/dl (65-105)
[2023-06-05] MEDS: INSULIN ASPART (*BKC) 100 UNITS/ML SUB-Q (12:04)
--- NOTE | 2023-06-05 14:46 | PCOTNOTE ---
Patient refused treatment this session due to pain. Upon arrival patient was moaning and grimacing in pain. Patient states it is 8/10. RN is aware of pain and will follow up.
[2023-06-05] MEDS: polyethylene glycoL 3350 17 GM POWD.PACK PO (15:32)
[2023-06-05] MEDS: SENNA/DOCUSATE SODIUM TABLET 1 TAB PO (15:32)
[2023-06-05] MEDS: AZITHROMYCIN 250 MG TABLET 500 MG PO (16:24)
[2023-06-05 17:11] LABS: Glucose Point of Care 161 mg/dl (65-105)
--- NOTE | 2023-06-05 17:17 | PM.IMPN ---
Progress Note: A&P Assessment and Plan (1) Chronic obstructive pulmonary disease: Code(s): J44.9 - Chronic obstructive pulmonary disease, unspecified Status: Acute (2) Pneumonia: Code(s): J18.9 - Pneumonia, unspecified organism Status: Acute (3) Altered mental status: Qualifiers: Altered mental status type: disorientation Qualified Code(s): R41.0 - Disorientation, unspecified Code(s): R41.82 - Altered mental status, unspecified Status: Acute Plan 82-year-old male with history of multiple medical comorbidities with severe pulmonary hypertension CAD chronic respiratory failure with hypoxia, paroxysmal atrial fibrillation type 2 diabetes mellitus presented with altered mental status. Patient has underlying dementia per the granddaughter. A&O x2 and for the most part at his baseline. Continue antibiotics for pneumonia and possible UTI although the urine culture was negative. Speech eval consultation as patient and granddaughter complaining he is having much difficulty swallowing solid foods. He wants something to sleep and apparently trazodone was used however we will try something less potent for now. Melatonin. Voiding trial tomorrow. We home tomorrow. Full code. Stable. Lovenox. Subjective Date/time seen: 06/05/23 17:17 Interval history: No acute overnight events. The patient complains he cannot sleep because of his pain. Granddaughter is present in the room and is adamant that his pain is not causing altered mental status and they do not want that medication pump change. Review of Systems Review of Systems: All systems reviewed & are unremarkable except as noted in HPI and below (Subjective) Exam Const: General: comfortable and no acute distress Other: A&O x2 Eyes: Pupils: Equal, round and reactive pupils present Neck: Neck: supple Resp: Effort & Inspection: normal respiratory effort Auscultation: clear to auscultation bilaterally Cardio: Rate: regular rate Rhythm: regular rhythm GI: GI Palp: Yes Soft to palpation and No Tenderness to palpation present (GI) Extrem: General: no edema Objective Data Vital Signs Vital Signs: Vital Signs - 24 hr 06/04/23 20:00 06/04/23 20:42 06/04/23 20:00 Temperature 97.1 F L Pulse Rate 85 85 Respiratory Rate 18 Blood Pressure 115/64 Pulse Oximetry 94 94 Oxygen Delivery Nasal Cannula Oxygen Flow Rate 3 06/04/23 20:55 06/04/23 20:55 06/04/23 21:02 Temperature Pulse Rate 90 88 Respiratory Rate 24 H 24 H Blood Pressure Pulse Oximetry 94 Oxygen Delivery Nasal Cannula Oxygen Flow Rate 3 06/05/23 00:00 06/05/23 02:40 06/05/23 02:50 Temperature 96.5 F L Pulse Rate 70 75 73 Respiratory Rate 18 20 20 Blood Pressure 103/51 L Pulse Oximetry 95 Oxygen Delivery Oxygen Flow Rate 06/05/23 03:32 06/05/23 07:59 06/05/23 07:59 Temperature 97.1 F L Pulse Rate 79 86 Respiratory Rate 18 20 Blood Pressure 112/55 L Pulse Oximetry 94 95 Oxygen Delivery Nasal Cannula Oxygen Flow Rate 3 06/05/23 08:16 06/05/23 08:25 06/05/23 09:20 Temperature Pulse Rate 89 84 Respiratory Rate 20 Blood Pressure Pulse Oximetry Oxygen Delivery Nasal Cannula Oxygen Flow Rate 3 06/05/23 08:25 06/05/23 11:23 06/05/23 14:16 Temperature 98.0 F Pulse Rate 65 75 Respiratory Rate 20 16 20 Blood Pressure 98/54 L Pulse Oximetry 95 94 Oxygen Delivery Nasal Cannula Oxygen Flow Rate 3 06/05/23 14:15 06/05/23 14:27 06/05/23 14:54 Temperature 98.6 F Pulse Rate 72 84 Respiratory Rate 20 16 Blood Pressure 119/62 Pulse Oximetry 94 90 Oxygen Delivery Nasal Cannula Oxygen Flow Rate 3 Intake/Output Intake/Output: Intake & Output 06/02/23 06/03/23 06/04/23 06/05/23 23:59 23:59 23:59 23:59 Intake Total 1552.5 836.7 1180 890 Output Total 500 600 650 300 Balance 1052.5 236.7 530 590 Meds/Results Medications: Act
[2023-06-05 20:23] LABS: Glucose Point of Care 228 mg/dl (65-105)
[2023-06-05] MEDS: MELATONIN 5 MG TABLET PO (20:46)
[2023-06-06] VITALS (20 sets, daily range): BP systolic 107–123; BP diastolic 44–72; PULSE 48–86; RESP 16–20; TEMP 35.8–37; O2SAT 86–98
[2023-06-06] MEDS: IPRATROPIUM 0.5 MG/ALBUTEROL SULFATE 2.5 MG AMPUL.NEB 3 ML INHALATION ×4 (02:50→21:13)
[2023-06-06 05:44] LABS: Basophils Percent Auto 0.2 % (0.2-1.2); Eosinophils Absolute Auto 0.2 K/mm3 (0-0.3); Eosinophils Percent Auto 2.5 % (0-4.4); Hematocrit 35.8 % (42.0-52.0); Hemoglobin 10.2 g/dL (14.0-18.0); Immature Granulocyte Percent A 1.2 % (0-0.5); Lymphocytes Absolute Auto 0.53 K/mm3 (0.9-3.2); Lymphocytes Percent Auto 6.4 % (18.3-44.2); Mean Corpuscular HGB Conc 28.5 g/dl (32-36); Mean Corpuscular Hemoglobin 25.2 pg (26-34); Mean Corpuscular Volume 88.4 fl (80-100); Mean Platelet Volume 10.9 fl (7.4-10.4); Monocytes Absolute Auto 0.8 K/mm3 (0.1-0.6); Monocytes Percent Auto 9.5 % (2.6-8.5); Neutrophils Absolute Auto 6.6 K/mm3 (1.3-6.7); Neutrophils Percent Auto 80.2 % (45.5-73.1); Platelet Count Result 219 k/mm3 (150-375); Red Blood Count 4.05 M/mm3 (4.6-6.20); Red Cell Distribution Width 21.3 % (11.5-14.5); White Blood Count 8.3 K/mm3 (4.5-10.0)
[2023-06-06 05:54] LABS: Anion Gap -1 mmol/L (8-16); Blood Urea Nitrogen 15 mg/dL (9-20); Calcium 8.9 mg/dL (8.4-10.2); Carbon Dioxide 39 mmol/L (22-30); Chloride 97 mmol/L (98-107); Estimated CRCL calculation 84 ml/min; Estimated Glomerular Filt Rate > 60; Glucose 154 mg/dL (65-110); Potassium 4.4 mmol/L (3.4-5.0); Sodium 135 mmol/L (137-145)
[2023-06-06 06:36] LABS: Platelet Estimate Adequate (Adequate)
[2023-06-06 06:37] LABS: Anisocytosis 1+; Schistocytes Rare
[2023-06-06 06:38] LABS: Hypochromasia 1+
[2023-06-06 08:22] LABS: Glucose Point of Care 143 mg/dl (65-105)
[2023-06-06] MEDS: ENOXAPARIN 40 MG/0.4 ML SYRINGE SUB-Q (09:08)
[2023-06-06] MEDS: cefuroxime axetiL 250 MG TABLET 500 MG PO ×2 (09:14→21:27)
[2023-06-06] MEDS: SENNA/DOCUSATE SODIUM TABLET 1 TAB PO ×2 (09:15→17:57)
[2023-06-06] MEDS: FERROUS SULFATE 325 MG TABLET DR PO (09:15)
[2023-06-06] MEDS: PANTOPRAZOLE 40 MG TABLET PO ×2 (09:15→17:57)
[2023-06-06] MEDS: oxyCODONE/ACETAMINOPHEN (*CRX) 5-325 MG TABLET 1 TABLET PO ×3 (09:23→21:30)
[2023-06-06 11:58] LABS: Glucose Point of Care 238 mg/dl (65-105)
--- NOTE | 2023-06-06 12:17 | PC.NURSE ---
paz removed at 1200 for voiding trial, possible d/c today.
--- NOTE | 2023-06-06 12:17 | PC.NURSE ---
must void by 1800 06/05
[2023-06-06] MEDS: INSULIN ASPART (*BKC) 100 UNITS/ML SUB-Q (12:28)
--- NOTE | 2023-06-06 14:29 | PM.IMPN ---
Progress Note: A&P Assessment and Plan (1) Chronic obstructive pulmonary disease: Code(s): J44.9 - Chronic obstructive pulmonary disease, unspecified Status: Acute (2) Pneumonia: Code(s): J18.9 - Pneumonia, unspecified organism Status: Acute (3) Altered mental status: Qualifiers: Altered mental status type: disorientation Qualified Code(s): R41.0 - Disorientation, unspecified Code(s): R41.82 - Altered mental status, unspecified Status: Acute Plan 82-year-old male with history of multiple medical comorbidities with severe pulmonary hypertension CAD chronic respiratory failure with hypoxia, paroxysmal atrial fibrillation type 2 diabetes mellitus presented with altered mental status. Patient has underlying dementia per the granddaughter. A&O x2 and for the most part at his baseline. Continue antibiotics for pneumonia and possible UTI although the urine culture was negative. He wants something to sleep and apparently trazodone was used however we will try something less potent for now. Melatonin. Voiding trial tomorrow. On 06/05 the patient slept well per his report. Continue melatonin 5 mg q.h.s.. He reports his pain is controlled as well. Dispo pending with care coordination for rehab. Patient complained of constipation for 3 days and we have started MiraLax and Senokot. FEN: Saline lock IV, level 5 diet GI prophylaxis: Continuing his home dose Protonix DVT prophylaxis: Lovenox Lines: Peripheral IV Code Status: Full code Dispo: Stable on medical floor Subjective Date/time seen: 06/06/23 14:29 Interval history: No acute overnight events. Patient reports he slept the well after taking melatonin. Review of Systems Review of Systems: All systems reviewed & are unremarkable except as noted in HPI and below (Subjective) Exam Const: General: comfortable and no acute distress Other: A&O x2 Eyes: Pupils: Equal, round and reactive pupils present Neck: Neck: supple Resp: Effort & Inspection: normal respiratory effort Auscultation: clear to auscultation bilaterally Cardio: Rate: regular rate Rhythm: regular rhythm GI: GI Palp: Yes Soft to palpation and No Tenderness to palpation present (GI) Other: Ventral hernia nontender Extrem: General: no edema Objective Data Vital Signs Vital Signs: Vital Signs - 24 hr 06/05/23 14:54 06/05/23 20:00 06/05/23 20:46 Temperature 98.6 F 98.5 F Pulse Rate 84 84 78 Respiratory Rate 16 12 Blood Pressure 119/62 117/48 L Pulse Oximetry 90 61 L Oxygen Delivery Oxygen Flow Rate 06/05/23 21:23 06/05/23 21:24 06/05/23 21:31 Temperature Pulse Rate 77 78 Respiratory Rate 20 20 Blood Pressure Pulse Oximetry 95 Oxygen Delivery Nasal Cannula Oxygen Flow Rate 4.5 06/05/23 20:30 06/06/23 00:00 06/06/23 03:04 Temperature 97.7 F Pulse Rate 55 L 75 Respiratory Rate 16 20 Blood Pressure 109/60 Pulse Oximetry 95 98 Oxygen Delivery Nasal Cannula Oxygen Flow Rate 4 06/06/23 03:11 06/06/23 03:47 06/06/23 07:33 Temperature 98.4 F Pulse Rate 74 53 L Respiratory Rate 20 16 Blood Pressure 112/56 L Pulse Oximetry 92 90 Oxygen Delivery Nasal Cannula Oxygen Flow Rate 4 06/06/23 07:35 06/06/23 07:43 06/06/23 09:15 Temperature Pulse Rate 76 72 48 L Respiratory Rate 20 20 Blood Pressure Pulse Oximetry Oxygen Delivery Oxygen Flow Rate 06/06/23 08:00 06/06/23 10:33 06/06/23 13:23 Temperature 98.3 F 98.2 F Pulse Rate 79 77 Respiratory Rate 16 20 Blood Pressure 118/72 115/67 Pulse Oximetry 94 93 96 Oxygen Delivery Nasal Cannula Oxygen Flow Rate 4 Intake/Output Intake/Output: Intake & Output 06/03/23 06/04/23 06/05/23 06/06/23 23:59 23:59 23:59 23:59 Intake Total 836.7 1180 1220 530 Output Total 600 650 700 550 Balance 236.7 530 520 -20 Meds/Results Medications: Active Medications Generic Name D
[2023-06-06 17:13] LABS: Glucose Point of Care 147 mg/dl (65-105)
[2023-06-06 21:00] LABS: Glucose Point of Care 212 mg/dl (65-105)
[2023-06-06] MEDS: METOPROLOL TARTRATE TAB 25 MG, METOPROLOL TARTRATE TAB 12.5 MG 37.5 MG PO (21:28)
[2023-06-06] MEDS: MELATONIN 5 MG TABLET PO (21:28)
[2023-06-07] VITALS (13 sets, daily range): BP systolic 105–135; BP diastolic 45–75; PULSE 56–80; RESP 17–20; TEMP 36.6–37.2; O2SAT 91–98
[2023-06-07] MEDS: IPRATROPIUM 0.5 MG/ALBUTEROL SULFATE 2.5 MG AMPUL.NEB 3 ML INHALATION ×3 (01:46→20:02)
[2023-06-07] MEDS: oxyCODONE/ACETAMINOPHEN (*CRX) 5-325 MG TABLET 1 TABLET PO ×2 (05:08→11:29)
[2023-06-07 08:28] LABS: Glucose Point of Care 139 mg/dl (65-105)
[2023-06-07] MEDS: METOPROLOL TARTRATE TAB 25 MG, METOPROLOL TARTRATE TAB 12.5 MG 37.5 MG PO ×2 (08:32→20:12)
[2023-06-07] MEDS: cefuroxime axetiL 250 MG TABLET 500 MG PO ×2 (08:32→20:12)
[2023-06-07] MEDS: PANTOPRAZOLE 40 MG TABLET PO ×2 (08:33→16:40)
[2023-06-07] MEDS: ENOXAPARIN 40 MG/0.4 ML SYRINGE SUB-Q (08:33)
[2023-06-07] MEDS: FERROUS SULFATE 325 MG TABLET DR PO (08:33)
[2023-06-07] MEDS: SENNA/DOCUSATE SODIUM TABLET 1 TAB PO ×2 (08:33→16:40)
[2023-06-07 12:22] LABS: Glucose Point of Care 182 mg/dl (65-105)
--- NOTE | 2023-06-07 16:54 | PM.IMPN ---
Progress Note: A&P Assessment and Plan (1) Chronic obstructive pulmonary disease: Code(s): J44.9 - Chronic obstructive pulmonary disease, unspecified Status: Acute (2) Pneumonia: Code(s): J18.9 - Pneumonia, unspecified organism Status: Acute (3) Altered mental status: Qualifiers: Altered mental status type: disorientation Qualified Code(s): R41.0 - Disorientation, unspecified Code(s): R41.82 - Altered mental status, unspecified Status: Acute Plan 82-year-old male with history of multiple medical comorbidities with severe pulmonary hypertension CAD chronic respiratory failure with hypoxia, paroxysmal atrial fibrillation type 2 diabetes mellitus presented with altered mental status. Patient has underlying dementia per the granddaughter. A&O x2 and for the most part at his baseline. Continue antibiotics for pneumonia and possible UTI although the urine culture was negative. He wants something to sleep and apparently trazodone was used however we will try something less potent for now. Melatonin. Voiding trial tomorrow. On 06/05 the patient slept well per his report. Continue melatonin 5 mg q.h.s.. He reports his pain is controlled as well. Dispo pending with care coordination for rehab. Patient complained of constipation for 3 days and we have started MiraLax and Senokot. On 06/06 in spite of instituting yesterday's laxatives he still had not had a bowel movement. Will give 1 time dose Fleet enema. The patient has slept very well with melatonin and he opens we can continue that. We will continue that scheduled every night. Continue disposition with care coordination for discharge to rehab. FEN: Saline lock IV, level 5 diet GI prophylaxis: Continuing his home dose Protonix DVT prophylaxis: Lovenox Lines: Peripheral IV Code Status: Full code Dispo: Stable on medical floor Subjective Date/time seen: 06/07/23 16:54 Interval history: No acute overnight events. The patient slept very well. He hopes to continue using the melatonin. Review of Systems Review of Systems: All systems reviewed & are unremarkable except as noted in HPI and below (Subjective) Exam Const: General: comfortable and no acute distress Other: A&O x2 Eyes: Pupils: Equal, round and reactive pupils present Neck: Neck: supple Resp: Effort & Inspection: normal respiratory effort Auscultation: clear to auscultation bilaterally Cardio: Rate: regular rate Rhythm: regular rhythm GI: GI Palp: Yes Soft to palpation and No Tenderness to palpation present (GI) Other: Ventral hernia nontender Extrem: General: no edema Objective Data Vital Signs Vital Signs: Vital Signs - 24 hr 06/06/23 17:55 06/06/23 19:11 06/06/23 21:15 Temperature 98.3 F Pulse Rate 84 Respiratory Rate 16 Blood Pressure 116/44 L Pulse Oximetry 93 92 86 L Oxygen Delivery Nasal Cannula Nasal Cannula Oxygen Flow Rate 3 3 Fraction of Inspired Oxygen 06/06/23 21:15 06/06/23 21:28 06/06/23 23:54 Temperature 98.6 F Pulse Rate 83 78 60 Respiratory Rate 20 16 Blood Pressure 107/62 Pulse Oximetry 94 Oxygen Delivery Oxygen Flow Rate Fraction of Inspired Oxygen 06/07/23 01:46 06/06/23 21:25 06/07/23 03:51 Temperature 98.3 F Pulse Rate 60 86 73 Respiratory Rate 18 20 20 Blood Pressure 107/45 L Pulse Oximetry 91 Oxygen Delivery Oxygen Flow Rate Fraction of Inspired Oxygen 06/07/23 07:00 06/07/23 07:00 06/07/23 07:10 Temperature Pulse Rate 62 62 64 Respiratory Rate 18 18 18 Blood Pressure Pulse Oximetry 94 Oxygen Delivery Nasal Cannula Oxygen Flow Rate 3 Fraction of Inspired Oxygen 06/07/23 08:25 06/07/23 11:14 06/07/23 13:00 Temperature 98.9 F Pulse Rate 68 68 Respiratory Rate 20 18 Blood Pressure 112/75 Pulse Oximetry 94 93 Oxygen Delivery Nasal Cannula Oxygen Flow Rate 3 Fraction of Inspired Oxygen 3
[2023-06-07] MEDS: INSULIN ASPART (*BKC) 100 UNITS/ML SUB-Q (17:26)
[2023-06-07 17:27] LABS: Glucose Point of Care 215 mg/dl (65-105)
[2023-06-07 19:59] LABS: Glucose Point of Care 117 mg/dl (65-105)
[2023-06-07] MEDS: MELATONIN 5 MG TABLET PO (20:12)
[2023-06-07 23:47] LABS: Legionella pneumophila Ag Ur Not Detected (Not Detected)
[2023-06-08] VITALS (11 sets, daily range): BP systolic 114–120; BP diastolic 64–71; PULSE 61–90; RESP 18; TEMP 36.4–36.9; O2SAT 92–98
[2023-06-08] MEDS: IPRATROPIUM 0.5 MG/ALBUTEROL SULFATE 2.5 MG AMPUL.NEB 3 ML INHALATION ×3 (03:45→14:28)
[2023-06-08] MEDS: oxyCODONE/ACETAMINOPHEN (*CRX) 5-325 MG TABLET 1 TABLET PO ×2 (06:19→15:51)
[2023-06-08] MEDS: FERROUS SULFATE 325 MG TABLET DR PO (08:25)
[2023-06-08] MEDS: SENNA/DOCUSATE SODIUM TABLET 1 TAB PO ×2 (08:25→15:51)
[2023-06-08] MEDS: METOPROLOL TARTRATE TAB 25 MG, METOPROLOL TARTRATE TAB 12.5 MG 37.5 MG PO (08:25)
[2023-06-08] MEDS: PANTOPRAZOLE 40 MG TABLET PO ×2 (08:25→15:51)
[2023-06-08] MEDS: ENOXAPARIN 40 MG/0.4 ML SYRINGE SUB-Q (08:26)
[2023-06-08 08:43] LABS: Glucose Point of Care 133 mg/dl (65-105)
--- NOTE | 2023-06-08 11:03 | PCNFU ---
Nutrition Follow-Up Complete: Inadequate energy intake related to no diet order and lack of alertness as evidenced by nursing report. Goal: Meet estimated needs - Progressing Pt current nutrition is Regular diet, Minced & moist Level 5. Ensure Compact BID for additional 220 kcal and 9 g protein. Nutrition recommendation: No new nutrition recommendations Last recorded weight is 80.2 kg. Bowel Motility: Last BM 06/07/23 Labs Reviewed: Glu 133 Meds Noted: Novolox, Lovenox, protonix Skin: Deep tissue injuries to BL heels Additional Notes: Intakes improving on MM L5. Monitor for speech eval, diet orders, intake, wt, labs. Follow up in 3 days
[2023-06-08 12:26] LABS: Glucose Point of Care 169 mg/dl (65-105)
--- NOTE | 2023-06-08 14:26 | PCOTNOTE ---
Attempted to see pt for occupational therapy treatment. Pt is currently on bedpan at this time. Will attempt at a later time.
--- NOTE | 2023-06-08 15:15 | PM.DS ---
DS: Admitting Diagnosis Discharge Date June 08, 2023 Admitting Diagnosis Altered mental status DS: Summary Hospital Course Hospital Course: 82-year-old male with a history of multiple medical comorbidities including severe pulmonary hypertension, dementia, CAD, chronic respiratory failure, paroxysmal atrial fibrillation, type 2 diabetes mellitus, chronic pain pump. Patient usually lives at home for he was recently at [facility] for rehab when he was noted to be altered. He has underlying dementia and is typically A&O x2. The patient was treated for possible UTI and community-acquired pneumonia. He did return to normal baseline mental status. While inpatient his pain pump was not utilized and in its place was given p.r.n. Percocet 5-325 mg and morphine 1 mg IV push q.6 hours p.r.n. the patient and daughter report the pain pump has been there for years and is micro dosed. They did not want the pain pump altered and wanted continued after discharge. Advised on the adverse effects risk and benefits otherwise. Home dose Lasix 40 mg p.o. b.i.d. was held on admission and he appeared on the dry side. Will continue to be on hold upon discharge and can be restarted if necessary by primary care. He has also been educated on the symptoms of heart failure and agrees to notify group home staff if he experiences these. Due to his chronic pain he is not able to sleep well at night. Although, after instituting melatonin 5 mg p.o. q.h.s. he had multiple and consecutive great nights of sleep. We will continue this ongoing. It appears he was on diphenhydramine and hydroxyzine seen at the group home. Discontinue those. Likely due to the use of narcotics patient experienced constipation for 4 days. Relieved status post Fleet enema. Continue Senokot and MiraLax p.r.n. On 06/08/2023 the patient is discharged back to [facility] for rehab. He is in stable and improved condition. Patient was full code during his admission. Time Spent with Patient Time attestation: Total time spent providing and/or coordinating discharge services: Exam Const: General: comfortable and no acute distress Other: A&O x2 Eyes: Pupils: Equal, round and reactive pupils present Neck: Neck: supple Resp: Effort & Inspection: normal respiratory effort Auscultation: clear to auscultation bilaterally Cardio: Rate: regular rate Rhythm: regular rhythm GI: GI Palp: Yes Soft to palpation and No Tenderness to palpation present (GI) Other: Ventral hernia nontender Extrem: General: no edema DS: Data Data Completed and Pending Labs on day of discharge: Labs from last 24 hours 06/08/23 06/08/23 06/07/23 12:02 08:28 19:52 POC Capillary Glucose 169 H 133 H 117 H Ur L.pneumophila Ag 06/07/23 06/01/23 17:18 13:31 POC Capillary Glucose 215 H Ur L.pneumophila Ag Not detected Discharge Plan Discharge Attending physician on discharge: Angeline Hooks Discharging Clinician: Angeline Hooks Patient Disposition: SNF Activity: july shower Diet: heart healthy and diabetic Patient Instructions: Enoxaparin (By injection), Heart Failure (GEN), Urinary Tract Infection in Men (GEN), High Troponin Levels (GEN) Stand Alone Forms: General Discharge Information Follow-up/Referrals: Benito,Michael Maldonado MD [Primary Care Provider] - 1 Week Discharge Medications: New polyethylene glycol 3350 [Miralax] 17 gram Powder In Packet 17 g PO QAM PRN (Reason: Constipation) Qty: 30 0RF melatonin 5 mg Tablet 5 mg PO HS Qty: 30 0RF Continued sennosides-docusate sodium 8.6-50 mg Capsule 1 tab-cap PO DAILY PRN (Reason: Constipation) ferrous sulfate 325 mg (65 mg iron) tablet 325 mg PO DAILY 30 Days Qty: 60 0RF ipratropium-albuterol 0.5 mg-3 mg(2.5 mg base)/3 mL Solution For Nebulization 3 ml INHALATION QID PRN (Reason: Shortness Of Breath Or Wheezing) acetaminophen 650 mg Tablet 650 mg
[2023-06-08 16:43] LABS: SARS-CoV-2 RNA PCR Negative (Negative)
== END 2023-06-08 16:40 | DRG 193 ==
LOC: ANHED 13:10 → ANHIMU 06-02 01:11 → ANH2MED 06-04 16:12
PROVIDERS: Internal Medicine; Physician Assistant; Admitting Provider Internal Medicine; Emergency Provider Emergency Medicine; PCP Internal Medicine; Visit Provider General Practice
DX: J18.9 Pneumonia, unspecified organism (principal); J96.21 Acute and chronic respiratory failure with hypoxia; N39.0 Urinary tract infection, site not specified; I50.32 Chronic diastolic (congestive) heart failure; J44.0 Chronic obstructive pulmonary disease with (acute) lower respiratory infection; G93.40 Encephalopathy, unspecified; Z20.822 Contact with and (suspected) exposure to COVID-19; J44.9 Chronic obstructive pulmonary disease, unspecified; M19.90 Unspecified osteoarthritis, unspecified site; F03.90 Unspecified dementia, unspecified severity, without behavioral disturbance, psychotic disturbance, mood disturbance, and anxiety; I11.0 Hypertensive heart disease with heart failure; N40.0 Benign prostatic hyperplasia without lower urinary tract symptoms; I25.10 Atherosclerotic heart disease of native coronary artery without angina pectoris; K21.9 Gastro-esophageal reflux disease without esophagitis; D50.9 Iron deficiency anemia, unspecified; E87.6 Hypokalemia; K74.60 Unspecified cirrhosis of liver; G47.33 Obstructive sleep apnea (adult) (pediatric); I48.0 Paroxysmal atrial fibrillation; K59.03 Drug induced constipation; T40.605A Adverse effect of unspecified narcotics, initial encounter; G89.29 Other chronic pain; E11.9 Type 2 diabetes mellitus without complications; M48.00 Spinal stenosis, site unspecified; Z86.73 Personal history of transient ischemic attack (TIA), and cerebral infarction without residual deficits; Z99.81 Dependence on supplemental oxygen; Z98.42 Cataract extraction status, left eye; Z98.41 Cataract extraction status, right eye; Z87.891 Personal history of nicotine dependence; R00.0 Tachycardia, unspecified
CPT/HCPCS: 36415; 36600; 70450; 70551; 71260; 73502; 74018; 74177; 80048; 80053; 82140; 82375; 82550; 82805; 82948; 83050; 83605; 83690; 83735; 83880; 84484; 85025; 85027; 85610; 85730; 86738; 87040; 87086; 87449; 87635; 87637; 87899; 92610; 93005; 94640; 96361; 96365; 96367; 96375; 97110; 97161; 97165; 97530; 99285; A9270; G0378; J0456; J0692; J0696; J1170; J1650; J1815; J2270; J3010; J3475; J3480; J7030; Q9967

== ENCOUNTER 2023-07-02 22:46 | Emergency (ER) | payer MEDICARE, MEDICAID, SELFPAY ==
--- NOTE | ~2023-07-02 | CT_ITS ---
EXAMINATION: CT brain wo con DATE: 07/02/2023 23:24 INDICATION: Head injury. TECHNIQUE: Computed tomography (CT) of the head was performed without intravenous contrast. The mA wa s adjusted according to patient size. Iterative reconstruction technique was employed. The dose-lengt h product was 681.00 mGy-cm. COMPARISON: Head CT 06/01/2023 FINDINGS: There is an old infarct in the right occipital lobe. There are scattered areas of low atten uation in the cerebral white matter. There is a 13 mm calcified extra-axial mass at the right side of the anterior falx with a meningioma. There is no acute ischemic infarct or intracranial hemorrhage. The ventricles are normal in size. There is mucosal thickening in the paranasal sinuses. There is scl erosis and thickening of the benz of the sphenoid sinus, consistent with chronic sinusitis. There ar e small bilateral mastoid effusions. There are likely changes of ocular lens replacement surgeries. IMPRESSION: 1. Old infarct in the right occipital lobe. 2. 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 3. Stable moderate nonspecific cerebral white matter disease, which likely represents chronic small v essel ischemic disease. Reviewed, dictated and finalized at location E. IMPRESSION: 1. Old infarct in the right occipital lobe. 2. 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 3. Stable moderate nonspecific cerebral white matter disease, which likely repr esents chronic small vessel ischemic disease.
[2023-07-02 22:52] VITALS: BP 121/77; PULSE 75; RESP 18; O2SAT 100
--- NOTE | 2023-07-02 23:31 | ED.FALL ---
HPI - Fall General Chief Complaint: Fall Stated Complaint: fall Time Seen by Provider: 07/02/23 22:51 History of Present Illness HPI Narrative: Patient is an 82-year-old male who presents ER after fall from his bed. Unknown LOC per fdc. Patient denies hitting his head but does have skin tear to the right side on his arm. He is on Lovenox at the facility new like to make sure he does not have a bleed. Related Data Home Medications Medication Instructions Recorded Confirmed sennosides 8.6 mg-docusate sodium 1 tab-cap PO DAILY PRN Constipation 06/08/22 06/01/23 50 mg capsule acetaminophen 650 mg tablet 650 mg PO Q6H PRN Pain 06/01/23 06/01/23 furosemide 40 mg tablet 40 mg PO BID 06/01/23 06/01/23 ipratropium 0.5 mg-albuterol 3 mg 3 ml inhalation QID PRN Shortness 06/01/23 06/01/23 (2.5 mg base)/3 mL nebulization Of Breath Or Wheezing soln metoprolol tartrate 37.5 mg tablet 37.5 mg PO BID 06/01/23 06/01/23 pantoprazole 40 mg tablet,delayed 40 mg PO BID 06/01/23 06/01/23 release miconazole nitrate 2 % topical 1 applic topical Q6H 06/02/23 06/02/23 powder Allergies Allergy/AdvReac Type Severity Reaction Status Date / Time No Known Allergies Allergy Verified 06/01/23 12:24 Review of Systems Review of Systems: All systems reviewed & are unremarkable except as noted in HPI and below Constitutional: Constitutional: Reports no additional constitutional complaints ENT: Reports system reviewed and no additional complaints, except as documented Cardiovascular: Cardiovascular: Reports no additional cardiovascular complaints Respiratory: Respiratory: Reports no additional respiratory complaints Musculoskeletal: Musculoskeletal: Reports no additional musculoskeletal complaints Integumentary/Breasts: Skin/Breast: Denies pruritus and Denies rash Comments: Right elbow skin tear PMFSH Past Medical History Medical History (Updated 07/02/23 @ 23:33 by Jamie Blair MD) Arthritis Atrial flutter Benign prostatic hyperplasia Cerebrovascular accident 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 Chronic anemia Chronic obstructive pulmonary disease Chronic pain Patient had a pain pump inserted in February 2019. Chronic respiratory failure with hypoxia, on home oxygen therapy Baseline oxygen requirement is 3 L nasal cannula. Congestive heart failure Echocardiogram February 2021: EF 55-60% (improved from prior echo of 45%) left ventricular septal wall motion abnormal related to bundle-branch block, grade 2 diastolic dysfunction, severe pulmonary hypertension with RVSP of 74, severe enlargement of the right atrium Coronary artery disease Gastroesophageal reflux disease History of bleeding peptic ulcer Hypertension Iron deficiency anemia Receives frequent iron infusions. Liver cirrhosis Moderate pulmonary hypertension Estimated pulmonary arterial systolic pressure was 54 mmHg on echocardiogram dated 10/25/2020. Obstructive sleep apnea Paroxysmal atrial fibrillation Pseudobulbar affect Spinal stenosis Type 2 diabetes mellitus Hemoglobin A1c was 6.3% on 10/25/2020. Surgical History Surgical History History of bilateral cataract extraction History of hernia repair 3 Family History Family History Father Acute myocardial infarction Sibling Acute myocardial infarction Brain aneurysm Other No problems noted. Mother Breast cancer Social History Social History Social History: Healthcare power of environmental attorney: Lennie Cruz, granddaughter. Code status: Full code. Smoking packs per day: 3 Smoking cigarettes per day: 60.0 Years smoked: 30 Smoking pack-years: 90.00 Smoking status: Former smoker Second hand tobacco smoke exposure: No Additional smoking assessment
== END 2023-07-03 01:00 ==
PROVIDERS: Emergency Provider Emergency Medicine; PCP Internal Medicine
DX: S51.011A Laceration without foreign body of right elbow, initial encounter (principal); I48.92 Unspecified atrial flutter; J44.9 Chronic obstructive pulmonary disease, unspecified; J96.11 Chronic respiratory failure with hypoxia; Z99.81 Dependence on supplemental oxygen; I50.9 Heart failure, unspecified; I11.0 Hypertensive heart disease with heart failure; I25.10 Atherosclerotic heart disease of native coronary artery without angina pectoris; I48.0 Paroxysmal atrial fibrillation; I27.20 Pulmonary hypertension, unspecified; E11.9 Type 2 diabetes mellitus without complications; K21.9 Gastro-esophageal reflux disease without esophagitis; N40.0 Benign prostatic hyperplasia without lower urinary tract symptoms; D50.9 Iron deficiency anemia, unspecified; G47.33 Obstructive sleep apnea (adult) (pediatric); Z86.73 Personal history of transient ischemic attack (TIA), and cerebral infarction without residual deficits; Z87.11 Personal history of peptic ulcer disease; Z87.891 Personal history of nicotine dependence; Z98.42 Cataract extraction status, left eye; Z98.41 Cataract extraction status, right eye; R90.82 White matter disease, unspecified; D32.0 Benign neoplasm of cerebral meninges; Z79.01 Long term (current) use of anticoagulants; W06.XXXA Fall from bed, initial encounter
CPT/HCPCS: 70450; 99284

== ENCOUNTER 2023-07-05 10:14 | Emergency (ER) | payer MEDICARE, MEDICAID, SELFPAY ==
[2023-07-05] VITALS (8 sets, daily range): BP systolic 127–129; BP diastolic 77; PULSE 72–94; RESP 18–36; TEMP 36.7; O2SAT 93–100
--- NOTE | ~2023-07-05 | XR_ITS ---
XR ankle LT min 3V 07/05/2023 11:02 Indication: Left ankle pain Procedure: 3 views left ankle Comparison: No prior studies for comparison. Findings: Osteopenia. There is atherosclerosis. There is polyarticular osteoarthritis. Degenerative c hanges most advanced in the midfoot. Old avulsion fracture of the medial malleolus. No acute fracture is identified. Impression: 1: No acute fracture. Reviewed, dictated and finalized at location A. Impression: 1: No acute fracture.
--- NOTE | ~2023-07-05 | CT_ITS ---
EXAMINATION: CT brain wo con DATE: 07/05/2023 11:14 INDICATION: Head injury. TECHNIQUE: Computed tomography (CT) of the head was performed without intravenous contrast. The dose- length product was 605.33 mGy-cm. Automated exposure control and iterative reconstruction technique w ere employed. COMPARISON: CT dated 07/02/2023 FINDINGS: Generalized atrophy. There are scattered moderate periventricular and subcortical white mat ter changes, most likely related to small vessel ischemic disease (microangiopathy). Stable 15 mm rig ht parafalcine meningioma, partially calcified. Chronic infarction of the right occipital lobe. There is intracranial atherosclerosis. No ventriculomegaly or midline shift. Paranasal sinuses are unremar kable. Small mastoid effusions. No depressed skull fractures. IMPRESSION: 1. No acute intracranial abnormality. No significant interval change. Reviewed, dictated and finalized at location A.
--- NOTE | ~2023-07-05 | CT_ITS ---
EXAMINATION: CT cervical spine wo con DATE: 07/05/2023 11:13 INDICATION: Neck pain after fall TECHNIQUE: Computed tomography (CT) of the cervical spine was performed without intravenous contrast. The dose-length product was 379 mGy-cm. Automated exposure control and iterative reconstruction tech nique were employed. COMPARISON: CT report dated 02/15/2021 FINDINGS: There is disc narrowing at all cervical spine levels. There is a perched facet at C3-4 with degenerative anterolisthesis at this level measuring approximately 3 mm odontoid process is normal. Lateral masses normally aligned. There is degenerative anterolisthesis at C7-T1 and T1-2. Lung apices are unremarkable. There is emphysema in the apices. IMPRESSION: 1. Perched facet at C3-4 bilaterally with 3 mm anterolisthesis at this level. These findings are age indeterminate. Prior CTs are not available for direct comparison. 2: Moderate-severe cervical spondylosis. Reviewed, dictated and finalized at location A. IMPRESSION: 1. Perched facet at C3-4 bilaterally with 3 mm anterolisthesis at this level. T hese findings are age indeterminate. Prior CTs are not available for direct com parison. 2: Moderate-severe cervical spondylosis.
[2023-07-05] MEDS: ACETAMINOPHEN 500 MG TABLET 1000 MG PO (10:40)
--- NOTE | 2023-07-05 11:46 | ED.FALL ---
HPI - Fall General Chief Complaint: Fall Stated Complaint: unwitnessed fall Time Seen by Provider: 07/05/23 10:17 History of Present Illness HPI Narrative: This is an 82-year-old male on blood thinners, [facility] a [facility] his bed. The patient states he had his sheets recently changed and he slipped out of bed, landing on the floor. He denies head injury or loss of consciousness. He states his left ankle hurts and this is consistent with previous episodes of neuropathy. He requests Tylenol. Related Data Home Medications Medication Instructions Recorded Confirmed sennosides 8.6 mg-docusate sodium 1 tab-cap PO DAILY PRN Constipation 06/08/22 06/01/23 50 mg capsule acetaminophen 650 mg tablet 650 mg PO Q6H PRN Pain 06/01/23 06/01/23 furosemide 40 mg tablet 40 mg PO BID 06/01/23 06/01/23 ipratropium 0.5 mg-albuterol 3 mg 3 ml inhalation QID PRN Shortness 06/01/23 06/01/23 (2.5 mg base)/3 mL nebulization Of Breath Or Wheezing soln metoprolol tartrate 37.5 mg tablet 37.5 mg PO BID 06/01/23 06/01/23 pantoprazole 40 mg tablet,delayed 40 mg PO BID 06/01/23 06/01/23 release miconazole nitrate 2 % topical 1 applic topical Q6H 06/02/23 06/02/23 powder Allergies Allergy/AdvReac Type Severity Reaction Status Date / Time No Known Allergies Allergy Verified 07/05/23 10:25 Review of Systems Review of Systems: CONSTITUTIONAL: Denies fever, chills, or sweats. EYES: Denies visual changes, redness, or discharge. ENT: Denies rhinorrhea, congestion, sore throat, or otalgia. CARDIOVASCULAR: Denies chest pain, palpitations, or edema. RESPIRATORY: Denies cough or dyspnea. GASTROINTESTINAL: Denies abdominal pain, nausea, vomiting, or diarrhea. GENITOURINARY: Denies dysuria or hematuria. SKIN: Denies rash or itching. MUSCULOSKELETAL: Denies back pain, joint pain, or myalgia. NEUROLOGIC: Chronic left ankle pain due to neuropathy. Denies headache, numbness, dizziness, or weakness. PSYCHIATRIC: Denies anxiety or depression. [facility] Past Medical History Medical History Arthritis Atrial flutter Benign prostatic hyperplasia Cerebrovascular accident 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 Chronic anemia Chronic obstructive pulmonary disease Chronic pain Patient had a pain pump inserted in February 2019. Chronic respiratory failure with hypoxia, on home oxygen therapy Baseline oxygen requirement is 3 L nasal cannula. Congestive heart failure Echocardiogram February 2021: EF 55-60% (improved from prior echo of 45%) left ventricular septal wall motion abnormal related to bundle-branch block, grade 2 diastolic dysfunction, severe pulmonary hypertension with RVSP of 74, severe enlargement of the right atrium Coronary artery disease Gastroesophageal reflux disease History of bleeding peptic ulcer Hypertension Iron deficiency anemia Receives frequent iron infusions. Liver cirrhosis Moderate pulmonary hypertension Estimated pulmonary arterial systolic pressure was 54 mmHg on echocardiogram dated 10/25/2020. Obstructive sleep apnea Paroxysmal atrial fibrillation Pseudobulbar affect Spinal stenosis Type 2 diabetes mellitus Hemoglobin A1c was 6.3% on 10/25/2020. Surgical History Surgical History History of bilateral cataract extraction History of hernia repair 3 Family History Family History Father Acute myocardial infarction Sibling Acute myocardial infarction Brain aneurysm Other No problems noted. Mother Breast cancer Social History Social History Social History: Healthcare power of securities attorney: Lennie Cruz, granddaughter. Code status: Full code. Smoking packs per day: 3 Smoking cigarettes per day: 60.0
--- NOTE | 2023-07-05 12:13 | PC.NURSE ---
update given to jared begumughter
== END 2023-07-05 13:37 ==
PROVIDERS: Emergency Provider Preventive Medicine Aerospace Medicine; PCP Internal Medicine
DX: E11.40 Type 2 diabetes mellitus with diabetic neuropathy, unspecified (principal); I48.92 Unspecified atrial flutter; I48.0 Paroxysmal atrial fibrillation; I25.10 Atherosclerotic heart disease of native coronary artery without angina pectoris; I27.20 Pulmonary hypertension, unspecified; I10 Essential (primary) hypertension; J44.9 Chronic obstructive pulmonary disease, unspecified; J96.11 Chronic respiratory failure with hypoxia; Z99.81 Dependence on supplemental oxygen; N40.0 Benign prostatic hyperplasia without lower urinary tract symptoms; D50.9 Iron deficiency anemia, unspecified; K74.60 Unspecified cirrhosis of liver; K21.9 Gastro-esophageal reflux disease without esophagitis; G47.33 Obstructive sleep apnea (adult) (pediatric); Z87.11 Personal history of peptic ulcer disease; Z86.73 Personal history of transient ischemic attack (TIA), and cerebral infarction without residual deficits; M47.812 Spondylosis without myelopathy or radiculopathy, cervical region; W06.XXXA Fall from bed, initial encounter
CPT/HCPCS: 70450; 72125; 73610; 99284; A9270

== ENCOUNTER 2023-07-10 13:51 | Inpatient (IN) | payer MEDICARE, MEDICAID, SELFPAY ==
[2023-07-10] VITALS (7 sets, daily range): BP systolic 106–119; BP diastolic 57–93; PULSE 72–96; RESP 13–22; TEMP 36.4–36.8; O2SAT 80–97; BMI 23.8
--- NOTE | ~2023-07-10 | XR_ITS ---
EXAMINATION: XR abdomen/kub 1V DATE: 07/12/2023 13:24 INDICATION: Stool impaction. TECHNIQUE: A supine view of the abdomen on 2 radiographs was obtained. COMPARISON: CT abdomen and pelvis 07/10/2023 FINDINGS: There are no dilated loops of bowel. There is a small volume of stool in the colon. There a re surgical clips and staple lines in the abdomen. A pump overlies the right abdomen. IMPRESSION: 1. Nonobstructive bowel gas pattern. Reviewed, dictated and finalized at location E.
--- NOTE | ~2023-07-10 | US_ITS ---
EXAMINATION: US venous doppler [facility] DATE: 07/11/2023 12:19 INDICATION: left ankle/leg pain . TECHNIQUE: Grayscale images without and with compression and Doppler images of the left lower extremi ty veins were obtained. COMPARISON: 12/17/2021 FINDINGS: The left common femoral vein, profunda (deep) femoral vein, femoral vein, popliteal vein, peroneal v ein, posterior tibial veins, gastrocnemius vein, and greater saphenous vein are patent. IMPRESSION: Patent left lower extremity veins. No evidence of deep venous thrombosis. Reviewed, dictated and finalized at location K.
--- NOTE | ~2023-07-10 | XR_ITS ---
XR ankle LT min 3V 07/10/2023 14:57 Indication: Left lateral ankle pain Procedure: 3 views left ankle Comparison: 07/05/2023 Findings: Osteopenia. There is polyarticular osteoarthritis of the ankle and foot. There is atheroscl erosis. Small degenerative calcaneal enthesophytes. No acute fracture is identified. Impression: 1: No acute fracture. Reviewed, dictated and finalized at location B. Impression: 1: No acute fracture.
--- NOTE | ~2023-07-10 | CT_ITS ---
EXAMINATION: CT abdomen pelvis w con DATE: 07/10/2023 16:19 INDICATION: Right lower quadrant abdominal pain. TECHNIQUE: Computed tomography (CT) of the abdomen and pelvis was performed with 100 mL Omnipaque-350 intravenous contrast. Automated exposure control and iterative reconstruction technique were employe d. The dose-length product was 838.62 mGy-cm. COMPARISON: 06/01/2023 FINDINGS: Small right pleural effusion. There is consolidation in the right lower lobe which is disproportionat e to the relatively small amount of associated volume loss along with the fluid-filled bronchi favors pneumonia over atelectasis. There are calcified nodules in the bilateral lower lobes along with calc ified left hilar lymph nodes consistent with old granulomatous disease. Mild cardiomegaly. Atheroscle rotic coronary artery calcifications. No pericardial effusion. Gallstones in the dependent aspect of the gallbladder which is dilated to 5.4 similar but without evident wall thickening or pericholecysti c inflammatory stranding to suggest acute cholecystitis. Liver, spleen, pancreas and bilateral adrena l glands are normal. Bilateral renal cysts the largest on the left measuring 4.0 cm. Bladder is seymour l. Mild prostatomegaly. Moderate amount of stool in the distal colon with 8.2 similar ball of stool a t rectum which can be seen with constipation with fecal impaction. There is some wall thickening at t he rectum likely related to secondary stercoral colitis. Postoperative change of prior gastric bypass procedure. Additional postoperative changes along the more distal small bowel. Postoperative change along the anterior abdominal wall with couple loops of nonobstructed small bowel extending into a mod erate-sized ventral hernia. There is calcified atherosclerosis of the aorta and many of the other art eries. No free intraperitoneal gas or fluid. No pathologically enlarged abdominal or pelvic lymphaden opathy. Moderate lower thoracic and mild lumbar spondylosis. Pain pump in the right lower quadrant an terior abdominal wall with catheter extending into the central canal at level of L1-L2 and extending cephalad beyond the cephalad margin of the [id number] which is at T7-T8. IMPRESSION: 1. Right lower lobe consolidation suspicious for pneumonia with associated small right pleural effusi on. 2. 8.2 cm ball of stool at the rectum with mild fecal impaction and secondary mild stercoral colitis. 3. Cardiomegaly 4. Cholelithiasis. 5. Loops of nonobstructed small bowel extending into a moderate-sized ventral hernia. Reviewed, dictated and finalized at location A. IMPRESSION: 1. Right lower lobe consolidation suspicious for pneumonia with associated smal l right pleural effusion. 2. 8.2 cm ball of stool at the rectum with mild fecal impaction and secondary m ild stercoral colitis. 3. Cardiomegaly 4. Cholelithiasis. 5. Loops of nonobstructed small bowel extending into a moderate-sized ventral h ernia.
[2023-07-10 14:48] LABS: Glucose Point of Care 165 mg/dl (65-105)
--- NOTE | 2023-07-10 15:20 | ED.ABDPAIN ---
HPI - Abdominal Pain General Chief Complaint: Abdominal Pain Stated Complaint: abd pain Time Seen by Provider: 07/10/23 14:01 Source: patient and family ( Daughter and granddaughter) History of Present Illness HPI narrative: patient presents [facility]. He is complaining of left lower quadrant abdominal pain that he states has been going on for the past 3 weeks. History of surgical repair for hernia as well as bowel resection. No bowel movement the past 3 days are report. Patient does have a morphine pump in his abdomen for chronic pain. Patient that decreased p.o. intake and states he gets nauseated every morning for 20-30 minutes.. Also complaining of left foot/ankle pain for 3 weeks. He had been taken off Lyrica and gabapentin. On 2LPM supplemental O2 for COPD. Patient does have several medications listed in terms of a bowel regimen available including bisacodyl, magnesium citrate, Fleet enema milk of magnesia, senna, Takes Linzess as well. Related Data Home Medications Medication Instructions Recorded Confirmed sennosides 8.6 mg-docusate sodium 1 tab-cap PO DAILY PRN Constipation 06/08/22 07/10/23 50 mg capsule acetaminophen 650 mg tablet 650 mg PO Q6H PRN Pain 06/01/23 07/10/23 furosemide 40 mg tablet 40 mg PO BID 06/01/23 07/10/23 ipratropium 0.5 mg-albuterol 3 mg 3 ml inhalation QID PRN Shortness 06/01/23 07/10/23 (2.5 mg base)/3 mL nebulization Of Breath Or Wheezing soln metoprolol tartrate 37.5 mg tablet 37.5 mg PO BID 06/01/23 07/10/23 pantoprazole 40 mg tablet,delayed 40 mg PO BID 06/01/23 07/10/23 release miconazole nitrate 2 % topical 1 applic topical Q6H 06/02/23 07/10/23 powder donepezil 10 mg tablet 10 mg PO DAILY 07/11/23 07/11/23 fluoxetine 10 mg capsule 10 mg PO DAILY 07/11/23 07/11/23 pregabalin 75 mg capsule 75 mg PO QID 07/11/23 07/11/23 tramadol 50 mg tablet 50 mg PO QID PRN Pain 07/11/23 07/11/23 Allergies Allergy/AdvReac Type Severity Reaction Status Date / Time No Known Allergies Allergy Verified 07/10/23 13:58 [facility] Past Medical History Medical History (Updated 07/13/23 @ 06:16 by Johana Allison MD) Arthritis Atrial flutter Benign prostatic hyperplasia Cerebrovascular accident 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 Chronic anemia Chronic obstructive pulmonary disease Chronic pain Patient had a pain pump inserted in February 2019. Chronic respiratory failure with hypoxia, on home oxygen therapy Baseline oxygen requirement is 3 L nasal cannula. Congestive heart failure Echocardiogram February 2021: EF 55-60% (improved from prior echo of 45%) left ventricular septal wall motion abnormal related to bundle-branch block, grade 2 diastolic dysfunction, severe pulmonary hypertension with RVSP of 74, severe enlargement of the right atrium Coronary artery disease Diabetic neuropathy Gastroesophageal reflux disease History of bleeding peptic ulcer History of myocardial infarction Hypertension Iron deficiency anemia Receives frequent iron infusions. Liver cirrhosis Moderate pulmonary hypertension Estimated pulmonary arterial systolic pressure was 54 mmHg on echocardiogram dated 10/25/2020. Obstructive sleep apnea Paroxysmal atrial fibrillation Pseudobulbar affect Spinal stenosis Type 2 diabetes mellitus Hemoglobin A1c was 6.3% on 10/25/2020. Surgical History Surgical History (Updated 07/13/23 @ 06:04 by Johana Allison MD) History of bilateral cataract extraction History of bowel resection Dr Torres (2008) [place] and approx 2014 History of hernia repair 3 Family History Family History Father Acute myocardial infarction Sibling Acute myocardial infarction Brain aneurysm Other No problems noted. Mother Breast cancer Social History Social History (Updated 07/10/23 @ 23:40 by Ashley Olivo PA-C) Social History: Healthcare
[2023-07-10] MEDS: ONDANSETRON INJ 4 MG/2 ML VIAL IV PUSH (15:39)
[2023-07-10] MEDS: SODIUM CHLORIDE 0.9% IV 1,000 ML 999 ML IV CONT (15:40)
[2023-07-10] MEDS: HYDROmorphone HCL INJ (*CRX) 1 MG/ML SYR 0.5 MG IV PUSH (15:40)
[2023-07-10 16:02] LABS: Alanine Aminotransferase 11 U/L (6-50); Albumin Level 3.2 g/dL (3.5-5.1); Alkaline Phosphatase 185 U/L (38-126); Aspartate Amino Transferase 22 U/L (17-59); Bilirubin,Total 0.6 mg/dL (0.2-1.3); Blood Urea Nitrogen 36 mg/dL (9-20); Calcium 8.3 mg/dL (8.4-10.2); Carbon Dioxide > 40 mmol/L (22-30); Chloride 84 mmol/L (98-107); Estimated CRCL calculation 64 ml/min; Estimated Glomerular Filt Rate > 60; Glucose 141 mg/dL (65-110); Lipase 33 U/L (23-300); Potassium 3.8 mmol/L (3.4-5.0); Sodium 129 mmol/L (137-145)
[2023-07-10 16:15] LABS: Basophils Percent Auto 0.4 % (0.2-1.2); Eosinophils Percent Auto 0.2 % (0-4.4); Hematocrit 39.5 % (42.0-52.0); Hemoglobin 12.2 g/dL (14.0-18.0); Immature Granulocyte Percent A 0.9 % (0-0.5); Lymphocytes Absolute Auto 1.02 K/mm3 (0.9-3.2); Mean Corpuscular HGB Conc 30.9 g/dl (32-36); Mean Corpuscular Hemoglobin 26.5 pg (26-34); Mean Corpuscular Volume 85.7 fl (80-100); Mean Platelet Volume 10.4 fl (7.4-10.4); Monocytes Absolute Auto 0.9 K/mm3 (0.1-0.6); Neutrophils Absolute Auto 9.2 K/mm3 (1.3-6.7); Neutrophils Percent Auto 81.5 % (45.5-73.1); Platelet Count Result 300 k/mm3 (150-375); Red Blood Count 4.61 M/mm3 (4.6-6.20); Red Cell Distribution Width 17.7 % (11.5-14.5); White Blood Count 11.3 K/mm3 (4.5-10.0)
[2023-07-10 16:17] LABS: Appearance Urine Clear (Clear); Bilirubin Urine Negative (Negative); Blood Urine Negative (Negative); Color Urine Dark Yellow (Yellow); Glucose Urine UA Negative (Negative); Ketones Urine Negative (Negative); Leukocyte Esterase Ur Negative LEU/UL (Negative); Nitrate Urine Negative (Negative); Protein Urine Negative (Negative); Specific Grav Ur 1.016 (1.001-1.035)
--- NOTE | 2023-07-10 16:17 | PCRCNOTE ---
Arrived to draw ABG ; Pt. was not available.
[2023-07-10 16:26] LABS: Add Urine Microscopic? NO
[2023-07-10 16:27] LABS: Lactic Acid Reflex 1.1 mmol/L (0.7-2.0)
[2023-07-10 16:28] LABS: INR 1.1; Prothrombin Time 14.3 Seconds (11.1-14.7)
[2023-07-10 16:29] LABS: Partial Thromboplastin Time 39.3 Seconds (22.3-36.8)
[2023-07-10 16:30] LABS: Alveolar/Arterial O2 Gradient 79.9 mmHg; Base Excess ABG 13.3 mEq/l (+/-2.0); Fractional Inspired Oxygen 28 %; HCO3 ABG 39.5 mEq/l (22.0-26.0); Oxygen Content ABG 13.7 %vol (16.0-22.0); PO2 ABG 51.3 mmHg (80.0-100.0); PO2 FiO2 Ratio Arterial Blood 1.83 %; Total Hemoglobin 11.8 g/dL (12.0-18.0); pH ABG 7.451 (7.350-7.450)
[2023-07-10 16:36] LABS: Device NASAL CANNULA; Modified Allen's Test Pass; Oxyhemoglobin 82.7 % THb (90.0-100.0); Site Drawn LEFT RADIAL
--- NOTE | 2023-07-10 18:31 | PM.IMHP ---
H&P: HPI History of Present Illness Date/Time: 07/10/23 18:30 Chief Complaint: Abdominal pain. Narrative: This is an 82-year-old male with congestive heart failure, severe pulmonary hypertension, coronary artery disease, chronic respiratory failure with hypoxia, chronic obstructive pulmonary disease, paroxysmal atrial fibrillation, type 2 diabetes mellitus, and other comorbidities who presented to the emergency department via EMS for evaluation of abdominal pain. The patient provides the following history. He has chronic pain with a morphine pump in place and he frequently gets constipated. He reports being on a bowel regimen at the correction although it is not unusual for him to only have 1 bowel movement a week and they are typically loose. It is not unusual for him to have abdominal discomfort related to constipation however it was much worse today and seems to be settled more so in the left lower quadrant. He describes a severe, cramping pain which does not radiate. He also complains of left ankle pain however that has been an ongoing issue for 3 weeks or more though he denies injuring the area. He denies fever, chills, sweats, cold and flu symptoms, chest pain, pleuritic pain, shortness of breath, indigestion, vomiting, hematochezia, melena, and dysuria. He endorses a chronic cough which he states is unchanged. He denies dysphagia and concerns for aspiration but tells me that he is supposed to be on a pureed diet In the ED: He was afebrile on arrival with stable vital signs. Labs are significant for a WBC count of 11.3, hemoglobin 12.2, sodium 129, chloride 84, carbon dioxide greater than 40, lactic acid 1.1. Urinalysis was unremarkable. CT of the abdomen pelvis showed right lower lobe consolidation suspicious for pneumonia with associated small right pleural effusion, cardiomegaly, cholelithiasis, loops of nonobstructed small bowel extending to a moderate-sized ventral hernia, and 8.2 cm ball of stool at the rectum with mild fecal impaction and secondary mild stercoral colitis. Left ankle x-ray showed no acute fracture. He was given a dose of azithromycin and ceftriaxone for possible underlying pneumonia. ED physician performed bedside disimpaction and he is being admitted in this setting. Review of Systems Review of Systems: 12 systems were reviewed and are negative except for as per HPI. [facility] [place] Past Medical History Medical History Arthritis Atrial flutter Benign prostatic hyperplasia Cerebrovascular accident 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 Chronic anemia Chronic obstructive pulmonary disease Chronic pain Patient had a pain pump inserted in February 2019. Chronic respiratory failure with hypoxia, on home oxygen therapy Baseline oxygen requirement is 3 L nasal cannula. Congestive heart failure Echocardiogram February 2021: EF 55-60% (improved from prior echo of 45%) left ventricular septal wall motion abnormal related to bundle-branch block, grade 2 diastolic dysfunction, severe pulmonary hypertension with RVSP of 74, severe enlargement of the right atrium Coronary artery disease Gastroesophageal reflux disease History of bleeding peptic ulcer Hypertension Iron deficiency anemia Receives frequent iron infusions. Liver cirrhosis Moderate pulmonary hypertension Estimated pulmonary arterial systolic pressure was 54 mmHg on echocardiogram dated 10/25/2020. Obstructive sleep apnea Paroxysmal atrial fibrillation Pseudobulbar affect Spinal stenosis Type 2 diabetes mellitus Hemoglobin A1c was 6.3% on 10/25/2020. Surgical History Surgical History History of bilateral cataract extraction History of hernia repair 3 Family History Family History Father Acute myocardial infarction Sibling Acute myocardial infarcti
--- NOTE | 2023-07-10 18:50 | PC.NURSE ---
Phlebotomy called for blood cultures. Patient difficult stick to obtain blood. Multiple attempts
--- NOTE | 2023-07-10 18:58 | PC.NURSE ---
per request and patient approval, patient granddaughtershy, called at [phone], with update and patient admission status.
[2023-07-10] MEDS: LACTATED RINGERS 1,000 ML 999 ML IV CONT (19:13)
--- NOTE | 2023-07-10 20:05 | PC.NURSE ---
Phlebotomy at bedside
[2023-07-10] MEDS: AZITHROMYCIN 250 MG TABLET 500 MG PO (20:55)
[2023-07-10 21:59] LABS: Glucose Point of Care 120 mg/dl (65-105)
--- NOTE | 2023-07-10 22:40 | ADMGEN ---
This patient, Zack Orellana, was admitted to 3 [facility] Surg Room 315-02. Patient/family oriented to hospital policies and general routines including ID bracelet, bed and alarms, visiting hours, pain management, procedures, bathroom and other care routines, personal items, smoking policy, room service/diet, and visiting hours. Information on how to activate the Rapid Response Team has been discussed. Patient/Family are encouraged to report perceived risks to care and to ask questions if they do not understand what they are told or what they should do.
[2023-07-11] VITALS (19 sets, daily range): BP systolic 103–124; BP diastolic 49–71; PULSE 61–103; RESP 18–24; TEMP 35.8–36.3; O2SAT 94–97
[2023-07-11] MEDS: DOXYCYCLINE HYCLATE 100 MG TABLET PO ×3 (00:12→20:05)
[2023-07-11 06:17] LABS: Hematocrit 36.8 % (42.0-52.0); Hemoglobin 10.9 g/dL (14.0-18.0); Mean Corpuscular HGB Conc 29.6 g/dl (32-36); Mean Corpuscular Hemoglobin 25.6 pg (26-34); Mean Corpuscular Volume 86.4 fl (80-100); Mean Platelet Volume 10.8 fl (7.4-10.4); Platelet Count Result 269 k/mm3 (150-375); Red Blood Count 4.26 M/mm3 (4.6-6.20); Red Cell Distribution Width 17.6 % (11.5-14.5); White Blood Count 8.2 K/mm3 (4.5-10.0)
[2023-07-11 06:35] LABS: Anion Gap 4 mmol/L (4-12); Blood Urea Nitrogen 23 mg/dL (9-20); Calcium 8.1 mg/dL (8.4-10.2); Carbon Dioxide 38 mmol/L (22-30); Chloride 90 mmol/L (98-107); Estimated CRCL calculation 89 ml/min; Estimated Glomerular Filt Rate > 60; Glucose 91 mg/dL (65-110); Magnesium 1.2 mg/dL (1.6-2.3); Potassium 3.3 mmol/L (3.4-5.0); Sodium 132 mmol/L (137-145)
--- NOTE | 2023-07-11 07:49 | PM.IMPN ---
Subjective Date/time seen: 07/11/23 07:49 Exam Narrative: General:?Chronically ill-appearing elderly gentleman in the semi-Mcmanus position in bed. Weight: 70 kg. BMI: 23.8. HEENT:?Normocephalic, atraumatic. Pupils are reactive. Extraocular motions intact. Sclerae anicteric. Tacky mucous membranes. Neck:??Supple. Respiratory:?He is at his baseline O2 requirement. Respirations are nonlabored. Lung sounds diminished at the right base with scattered crackles and some expiratory wheezes. Cardiovascular:?Regular rate and rhythm with occasional ectopy. Systolic murmur heard at the upper sternal border. Gastrointestinal:??Abdomen is soft and nondistended with positive bowel sounds. He has large ventral hernias which are reducible and do not seem to be tender to palpation. He has mild tenderness to palpation the left lower quadrant. Skin:??Warm and dry. Generalized pallor. Chronic raised, fibrotic nodules and areas of lichenification on the right miner. There are pressure wounds over the buttocks and coccyx with deeper ulcerations over the left buttock and pressure ulcers of both heels, left greater than right. Extremities:??No cyanosis, clubbing, or significant edema. Neurological:?Alert. Cranial nerves 2-12 appear grossly intact. No gross focal deficits to casual conversation. Psychiatric:?Pleasant cooperative with appropriate mood. Objective Data Vital Signs Vital Signs: Vital Signs - 24 hr 07/10/23 13:50 07/10/23 15:49 07/10/23 17:23 Temperature 98.3 F Pulse Rate 96 78 83 Respiratory Rate 15 20 Blood Pressure 106/79 119/64 Pulse Oximetry 95 Oxygen Delivery Nasal Cannula Oxygen Flow Rate 2 07/10/23 19:11 07/10/23 20:20 07/10/23 20:58 Temperature Pulse Rate 77 84 72 Respiratory Rate 13 20 20 Blood Pressure 114/93 H 111/60 114/61 Pulse Oximetry 95 97 Oxygen Delivery Oxygen Flow Rate 07/10/23 21:25 07/11/23 04:00 07/11/23 05:25 Temperature 97.6 F 97.3 F L Pulse Rate 81 78 86 Respiratory Rate 22 H 24 H Blood Pressure 114/57 L 119/49 L Pulse Oximetry 80 L 95 Oxygen Delivery Oxygen Flow Rate 07/11/23 04:00 Temperature Pulse Rate 81 Respiratory Rate Blood Pressure Pulse Oximetry Oxygen Delivery Oxygen Flow Rate Intake/Output Intake/Output: Intake & Output 07/08/23 07/09/23 07/10/23 07/11/23 23:59 23:59 23:59 23:59 Intake Total 1999 150 Output Total 450 Balance 1999 -300 Meds/Results Medications: Active Medications Generic Name Dose Route Start Last Admin Trade Name Freq PRN Reason Stop Dose Admin Acetaminophen 650 mg 07/10/23 23:48 Acetaminophen 325 Mg Tablet PO Q6H PRN Mild Pain (1-3) or Fever Albuterol/Ipratropium 3 ml 07/10/23 23:48 Ipratropium 0.5 Mg/Albuterol Sulfate 2.5 Mg Ampul.Neb 3 Ml INHALATION Q6HRT PRN Shortness Of Breath Or Wheezing Dextrose 12.5 gm 07/10/23 18:46 Dextrose 50% 25 Gm/50 Ml Syringe IV PUSH PRN PRN Hypoglycemia Protocol Doxycycline Hyclate 100 mg 07/11/23 00:00 07/11/23 00:12 Doxycycline Hyclate 100 Mg Tablet PO 100 mg Q12HR REHAN Administration Enoxaparin Sodium 40 mg 07/11/23 09:00 Enoxaparin 40 Mg/0.4 Ml Syringe SUB-Q DAILY REHAN Glucagon 1 mg 07/10/23 18:46 Glucagon For Inj 1 Mg Vial IM PRN PRN Hypoglycemia Protocol Glucose 15 gm 07/10/23 18:46 Glucose Oral Gel 15 Gm Of Glucse In 37.5 Gm Tube PO PRN PRN Hypoglycemia Protocol Dextrose 1,000 mls @ 100 mls/hr 07/10/23 18:46 Dextrose 5% 1,000 Ml IVPB PRN PRN Hypoglycemia Protocol Ceftriaxone Sodium 1 gm in 50 mls @ 100 mls/hr 07/11/23 00:00 07/11/23 00:12 Rocephin 1 Gm/Ns 50 Ml IVPB 100 mls/hr Q24H REHAN Administration Ondansetron HCl 4 mg 07/10/23 18:46 Ondansetron Inj 4 Mg/2 Ml Vial IV PUSH Q4H PRN Nausea Polyethylene Glycol 17 gm 07/11/23 09:00 Polyethylene Glycol 3350 17 Gm Powd.Pack PO
[2023-07-11] MEDS: PANTOPRAZOLE SODIUM IV 40 MG VIAL IV PUSH ×2 (10:59→20:05)
[2023-07-11] MEDS: HYDROmorphone HCL INJ (*CRX) 1 MG/ML SYR 0.5 MG IV PUSH (11:00)
[2023-07-11] MEDS: POTASSIUM CHLORIDE 20 MEQ ER TABLET 40 MEQ PO (11:07)
[2023-07-11] MEDS: FLUoxetine HCL 10 MG CAPSULE PO (11:08)
[2023-07-11] MEDS: DONEPEZIL HCL 10 MG TABLET PO (11:08)
[2023-07-11] MEDS: ENOXAPARIN 40 MG/0.4 ML SYRINGE SUB-Q (11:08)
[2023-07-11] MEDS: METOPROLOL TARTRATE 12.5 MG TABLET PO ×2 (11:09→20:05)
[2023-07-11] MEDS: FUROSEMIDE 40 MG TABLET PO ×2 (11:09→17:58)
[2023-07-11] MEDS: polyethylene glycoL 3350 17 GM POWD.PACK PO (11:09)
[2023-07-11] MEDS: METOPROLOL TARTRATE 25 MG TABLET PO ×2 (11:10→20:06)
[2023-07-11] MEDS: MAGNESIUM SULF 4 GM/WATER100ML 4 GM/100 ML BAG IVPB (11:21)
--- NOTE | 2023-07-11 11:32 | PM.IMPN ---
Progress Note: A&P Assessment and Plan (1) Fecal impaction: Code(s): K56.41 - Fecal impaction Status: Acute Assessment and Plan: CT scan shows fecal impaction which was disimpacted by the ED physician as well as mild stercoral colitis. Fecal disimpaction in the ED Continue senna and start MiraLax daily. Patient has not passed large ball of stool. Soapsuds enema ordered (2) Right lower lobe pneumonia: Code(s): J18.9 - Pneumonia, unspecified organism Status: Acute Assessment and Plan: CT scan also showed right lower lobe pneumonia Doxycycline and ceftriaxone started on 07/09. Attempt sputum for culture. Swallow study done last month indicated that he should eat a minced and moist level 5 diet with regular liquids. Initiate aspiration precautions. No evidence to suggest acute COPD exacerbation. DuoNebs scheduled. (3) Stercoral colitis: Code(s): K52.89 - Other specified noninfective gastroenteritis and colitis Status: Acute Assessment and Plan: Seen on imaging. Patient on Doxy and Rocephin (4) Chronic obstructive pulmonary disease: Code(s): J44.9 - Chronic obstructive pulmonary disease, unspecified Status: Acute Assessment and Plan: Patient on home o2 level. Stable. (5) Chronic respiratory failure with hypoxia and hypercapnia: Code(s): J96.11 - Chronic respiratory failure with hypoxia; J96.12 - Chronic respiratory failure with hypercapnia Status: Acute Assessment and Plan: Home O2 at home is 3 L. (6) Congestive heart disease: Code(s): I50.9 - Heart failure, unspecified Status: Acute Assessment and Plan: He has chronic respiratory failure and seems to be at his baseline. He does not appear volume overloaded and volume status will be monitored with daily weights and I/O. (7) Hypertension: Code(s): I10 - Essential (primary) hypertension Status: Acute Assessment and Plan: Continue home medication. (8) Chronic pain syndrome: Code(s): G89.4 - Chronic pain syndrome Status: Acute Assessment and Plan: Patient on morphine pump. Subjective Date/time seen: 07/11/23 11:32 Interval history: patient having epigastric pain when I entered the room. He states that he feels like this is similar to the pain he had when he had stomach ulcers. Pain is worse after he eats. I started him on Protonix b.i.d. for this. He is on a morphine pump. According to the nurse he has had small amounts of liquid bowel movements but has not had large bowel movement yet. Ordered an enema for him. he denies shortness of breath, coughing, chest pain nausea or vomiting. Exam Narrative: GENERAL: Comfortable, no acute distress HENMT: moist mucous membranes EYES: EOM intact b/l NECK: no lymphadenopathy RESPIRATORY: distant lung sounds, no increased respiratory effort CARDIO: Regular rate and rhythm GI: soft, epigastric tenderness, bowel sounds present, large ventral hernia SKIN/EXTREMITIES: no rashes, no edema, no redness or tenderness NEURO: PROM intact, answers questions appropriately, A&O x4 Objective Data Vital Signs Vital Signs: Vital Signs - 24 hr 07/10/23 13:50 07/10/23 15:49 07/10/23 17:23 Temperature 98.3 F Pulse Rate 96 78 83 Respiratory Rate 15 20 Blood Pressure 106/79 119/64 Pulse Oximetry 95 Oxygen Delivery Nasal Cannula Oxygen Flow Rate 2 Fraction of Inspired Oxygen 07/10/23 19:11 07/10/23 20:20 07/10/23 20:58 Temperature Pulse Rate 77 84 72 Respiratory Rate 13 20 20 Blood Pressure 114/93 H 111/60 114/61 Pulse Oximetry 95 97 Oxygen Delivery Oxygen Flow Rate Fraction of Inspired Oxygen 07/10/23 21:25 07/11/23 04:00 07/11/23 05:25 Temperature 97.6 F 97.3 F L Pulse Rate 81 78 86 Respiratory Rate 22 H 24 H Blood Pressure 114/57 L 119/49 L Pulse Oximet
[2023-07-11] MEDS: IPRATROPIUM 0.5 MG/ALBUTEROL SULFATE 2.5 MG AMPUL.NEB 3 ML INHALATION ×2 (14:29→21:23)
--- NOTE | 2023-07-11 16:00 | PC.NURSE ---
Spoke with patient's granddaughter, Lennie, to give update. She informed me of nerve pain medications that were abruptly stopped recently at the facility patient has been receiving care in. She reported that these medications helped him significantly while he was taking them. Notified provider, Marianela Klein, at 1558 07/11/23, of this information to reconcile these medications. Provider will reconcile in AM.
[2023-07-11] MEDS: FERROUS SULFATE 325 MG TABLET DR PO (17:58)
[2023-07-11] MEDS: TOLNAFTATE 1% POWDER 45 GM BTL 1 APPLIC TOPICAL (17:59)
[2023-07-11] MEDS: MELATONIN 5 MG TABLET PO (20:05)
[2023-07-11] MEDS: SENNOSIDES 8.6 MG TABLET PO (20:06)
[2023-07-12] VITALS (14 sets, daily range): BP systolic 96–116; BP diastolic 65–80; PULSE 63–92; RESP 16–20; TEMP 36.2–36.3; O2SAT 93–99
[2023-07-12] MEDS: TOLNAFTATE 1% POWDER 45 GM BTL 1 APPLIC TOPICAL ×3 (00:02→12:37)
[2023-07-12] MEDS: IPRATROPIUM 0.5 MG/ALBUTEROL SULFATE 2.5 MG AMPUL.NEB 3 ML INHALATION ×3 (02:15→15:23)
[2023-07-12 06:48] LABS: Hematocrit 37.7 % (42.0-52.0); Mean Corpuscular HGB Conc 29.2 g/dl (32-36); Mean Corpuscular Hemoglobin 25.4 pg (26-34); Mean Corpuscular Volume 87.1 fl (80-100); Mean Platelet Volume 9.9 fl (7.4-10.4); Platelet Count Result 250 k/mm3 (150-375); Red Blood Count 4.33 M/mm3 (4.6-6.20); Red Cell Distribution Width 17.3 % (11.5-14.5); White Blood Count 6.2 K/mm3 (4.5-10.0)
[2023-07-12 07:01] LABS: Alanine Aminotransferase 9 U/L (6-50); Albumin Level 2.8 g/dL (3.5-5.1); Alkaline Phosphatase 166 U/L (38-126); Aspartate Amino Transferase 19 U/L (17-59); Bilirubin,Total 0.5 mg/dL (0.2-1.3); Blood Urea Nitrogen 18 mg/dL (9-20); Calcium 8.3 mg/dL (8.4-10.2); Carbon Dioxide > 40 mmol/L (22-30); Chloride 89 mmol/L (98-107); Estimated CRCL calculation 75 ml/min; Estimated Glomerular Filt Rate > 60; Glucose 120 mg/dL (65-110); Potassium 3.5 mmol/L (3.4-5.0); Sodium 134 mmol/L (137-145)
[2023-07-12] MEDS: polyethylene glycoL 3350 17 GM POWD.PACK PO (09:19)
[2023-07-12] MEDS: METOPROLOL TARTRATE 12.5 MG TABLET PO (09:23)
[2023-07-12] MEDS: PANTOPRAZOLE SODIUM IV 40 MG VIAL IV PUSH (09:23)
[2023-07-12] MEDS: FUROSEMIDE 40 MG TABLET PO (09:23)
[2023-07-12] MEDS: ENOXAPARIN 40 MG/0.4 ML SYRINGE SUB-Q (09:23)
[2023-07-12] MEDS: FLUoxetine HCL 10 MG CAPSULE PO (09:23)
[2023-07-12] MEDS: DONEPEZIL HCL 10 MG TABLET PO (09:23)
[2023-07-12] MEDS: METOPROLOL TARTRATE 25 MG TABLET PO (09:23)
[2023-07-12] MEDS: DOXYCYCLINE HYCLATE 100 MG TABLET PO (09:23)
[2023-07-12] MEDS: MORPHINE SULFATE (*CRX) 2 MG/ML INJ IV PUSH ×2 (09:24→16:33)
[2023-07-12] MEDS: PREGABALIN (*CRX) 75 MG CAPSULE PO ×2 (09:57→12:36)
[2023-07-12] MEDS: FERROUS SULFATE 325 MG TABLET DR PO (12:37)
[2023-07-12] MEDS: traMADol HCL (*CRX) 50 MG TABLET PO (12:37)
--- NOTE | 2023-07-12 14:46 | PM.DS ---
DS: Admitting Diagnosis Discharge Date 07/12/23 Admitting Diagnosis fecal impaction DS: Discharge Diagnosis Discharge Diagnosis (1) Fecal impaction: Code(s): K56.41 - Fecal impaction Status: Acute (2) Right lower lobe pneumonia: Code(s): J18.9 - Pneumonia, unspecified organism Status: Acute (3) Stercoral colitis: Code(s): K52.89 - Other specified noninfective gastroenteritis and colitis Status: Acute (4) Chronic obstructive pulmonary disease: Code(s): J44.9 - Chronic obstructive pulmonary disease, unspecified Status: Acute (5) Chronic respiratory failure with hypoxia and hypercapnia: Code(s): J96.11 - Chronic respiratory failure with hypoxia; J96.12 - Chronic respiratory failure with hypercapnia Status: Acute (6) Congestive heart disease: Code(s): I50.9 - Heart failure, unspecified Status: Acute (7) Hypertension: Code(s): I10 - Essential (primary) hypertension Status: Acute (8) Chronic pain syndrome: Code(s): G89.4 - Chronic pain syndrome Status: Acute DS: Summary Hospital Course Hospital Course: This is an 82-year-old male with congestive heart failure, severe pulmonary hypertension, coronary artery disease, chronic respiratory failure with hypoxia, chronic obstructive pulmonary disease, paroxysmal atrial fibrillation, type 2 diabetes mellitus, and other comorbidities who presented to the emergency department via EMS for evaluation of abdominal pain. The patient provides the following history. He has chronic pain with a morphine pump in place and he frequently gets constipated. He reports being on a bowel regimen at the halfway although it is not unusual for him to only have 1 bowel movement a week and they are typically loose. Labs are significant for a WBC count of 11.3, hemoglobin 12.2, sodium 129, chloride 84, carbon dioxide greater than 40, lactic acid 1.1. Urinalysis was unremarkable. CT of the abdomen pelvis showed right lower lobe consolidation suspicious for pneumonia with associated small right pleural effusion, cardiomegaly, cholelithiasis, loops of nonobstructed small bowel extending to a moderate-sized ventral hernia, and 8.2 cm ball of stool at the rectum with mild fecal impaction and secondary mild stercoral colitis. Patient was started on antibiotics for pneumonia as well as bowel regimen. He underwent a disimpaction in the ED he was about long term disimpacted. he was inserted on some MiraLax and his home medication regimen. He had a enema and had several very large bowel movements afterwards. He does have extreme excoriation on his bottom and will send him home with some cream for this. Patient had never complained of cough or shortness of breath to align with his pneumonia on imaging. will treat him for total of 7 days. Advised increased water intake and mobility for his constipation. Time Spent with Patient Time attestation: Total time spent providing and/or coordinating discharge services: Exam Narrative: GENERAL: Comfortable, no acute distress HENMT: moist mucous membranes EYES: EOM intact b/l NECK: no lymphadenopathy RESPIRATORY: distant lung sounds, no increased respiratory effort CARDIO: Regular rate and rhythm GI: soft, epigastric tenderness, bowel sounds present, large ventral hernia SKIN/EXTREMITIES: no rashes, no edema, no redness or tenderness NEURO: PROM intact DS: Data Data Completed and Pending Labs on day of discharge: Labs from last 24 hours 07/12/23 06:40 WBC 6.2 RBC 4.33 L Hgb 11.0 L Hct 37.7 L MCV 87.1 MCH 25.4 L MCHC 29.2 L RDW 17.3 H Plt Count 250 MPV 9.9 Sodium 134 L Potassium 3.5 Chloride 89 L Carbon Dioxide > 40 H Anion Gap BUN 18 Creatinine 0.60 L Estim Creat Clear Calc 75 Estimated GFR > 60 Glucose 120 H Calcium 8.3 L Total Bilirubin 0.5 AST 19 ALT 9 Alkaline Phosphatase 166 H Total Protein 6.0 L Albumin 2.8 L
[2023-07-15 16:58] LABS: Pneumococcal Antigen Urine NOT DETECTED
[2023-07-16 22:14] LABS: Legionella pneumophila Ag Ur NOT DETECTED
[2023-07-20 18:23] LABS: Mycoplasma IgM Antibody Titer 292 U/mL
== END 2023-07-12 17:55 | DRG 388 ==
LOC: ANHED 14:06 → ANH3MEDSUR 19:50
PROVIDERS: Internal Medicine Critical Care Medicine; Physician Assistant; Admitting Provider Hospitalist; Emergency Provider Student in an Organized Health Care Education/Training Program; PCP Internal Medicine; Visit Provider Hospitalist
DX: K56.41 Fecal impaction (principal); J18.9 Pneumonia, unspecified organism; I48.92 Unspecified atrial flutter; J96.11 Chronic respiratory failure with hypoxia; J96.12 Chronic respiratory failure with hypercapnia; K52.89 Other specified noninfective gastroenteritis and colitis; I11.0 Hypertensive heart disease with heart failure; I50.9 Heart failure, unspecified; I25.10 Atherosclerotic heart disease of native coronary artery without angina pectoris; I48.0 Paroxysmal atrial fibrillation; I27.20 Pulmonary hypertension, unspecified; D50.9 Iron deficiency anemia, unspecified; E11.40 Type 2 diabetes mellitus with diabetic neuropathy, unspecified; L89.159 Pressure ulcer of sacral region, unspecified stage; L89.629 Pressure ulcer of left heel, unspecified stage; L89.619 Pressure ulcer of right heel, unspecified stage; L89.329 Pressure ulcer of left buttock, unspecified stage; K74.60 Unspecified cirrhosis of liver; K21.9 Gastro-esophageal reflux disease without esophagitis; N40.0 Benign prostatic hyperplasia without lower urinary tract symptoms; M48.00 Spinal stenosis, site unspecified; M19.90 Unspecified osteoarthritis, unspecified site; G89.29 Other chronic pain; G47.33 Obstructive sleep apnea (adult) (pediatric); F48.2 Pseudobulbar affect; Z96.89 Presence of other specified functional implants; I25.2 Old myocardial infarction; Z86.73 Personal history of transient ischemic attack (TIA), and cerebral infarction without residual deficits; Z99.81 Dependence on supplemental oxygen; Z87.891 Personal history of nicotine dependence; Z74.01 Bed confinement status; Z87.11 Personal history of peptic ulcer disease
CPT/HCPCS: 36415; 36600; 73610; 74018; 74177; 80048; 80053; 81003; 82805; 82948; 83605; 83690; 83735; 85025; 85027; 85610; 85730; 86738; 87040; 87449; 87899; 93971; 94640; 96361; 96374; 96375; 99285; A9270; C9113; G0378; J0696; J1170; J1650; J2270; J2405; J3475; J7030; J7120; Q9967

== ENCOUNTER 2023-07-26 18:10 | Inpatient (IN) | payer MEDICARE, MEDICAID, SELFPAY ==
[2023-07-26] VITALS (17 sets, daily range): BP systolic 92–148; BP diastolic 59–134; PULSE 82–108; RESP 16–24; TEMP 36.8; O2SAT 90–99
--- NOTE | ~2023-07-26 | XR_ITS ---
EXAMINATION: XR barium swallow modified DATE: 07/28/2023 15:29 INDICATION: Aspiration. TECHNIQUE: The patient was given barium-containing material of multiple consistencies to swallow by t riley speech pathologist while I performed fluoroscopy. Fluoroscopy exposure time was 1.4 minutes. The n umber of fluoroscopy images saved to the PACS was 1. Dose-area product was 1.779 Gy-cm^2. FINDINGS: There is reduced laryngeal elevation, reduced laryngeal adduction, reduced tongue base retraction, an d vallecular residue. There is laryngeal penetration. There is aspiration of thin liquids and mildly thick liquids. IMPRESSION: 1. Aspiration. 2. Please refer to the speech therapy report for recommendations. Reviewed, dictated and finalized at location A.
--- NOTE | ~2023-07-26 | XR_ITS ---
EXAMINATION: XR chest 1V DATE: 07/26/2023 19:42 INDICATION: Altered mental status. TECHNIQUE: A single frontal view of the chest was obtained. COMPARISON: Chest single view 07/10/2022, CT abdomen and pelvis 07/10/2023 FINDINGS: There are airspace opacities at right lung base. There is mild atelectasis at left lung bas e. There is a small right pleural effusion. No pneumothorax. Cardiomegaly is noted. There are surgica l clips in the abdomen. IMPRESSION: 1. Airspace opacities at right lung base, consistent with atelectasis versus pneumonia. 2. Small right pleural effusion. 3. Cardiomegaly. Reviewed, dictated and finalized at location E. IMPRESSION: 1. Airspace opacities at right lung base, consistent with atelectasis versus pn eumonia. 2. Small right pleural effusion. 3. Cardiomegaly.
--- NOTE | ~2023-07-26 | CT_ITS ---
Clinical Indication: Altered mental status CT Scan of the Chest, Abdomen, and Pelvis with Contrast: Technique: Contiguous sections were acquired throughout the chest, abdomen, and pelvis after intraven ous administration of 100 cc of Omnipaque 350. Dose reduction technique was used on this scan by marcela avila automated exposure control and iterative reconstruction technique. The dose-length product (DL P) was 779.16 mGy-cm. COMPARISON: 07/10/2023 Findings: There is no evidence of any significant mediastinal, hilar or axillary lymphadenopathy. The mediastin al soft tissues appear normal. No pulmonary embolus seen. No aortic aneurysm or dissection. There are coronary artery calcifications of the aorta. No pericardial effusion. There is a small right pleural effusion with complete right lower lobe atelectasis. There is fluid an d debris within the right lower lobe bronchus. There is mild emphysema in the lungs otherwise. Left l luis miguel clear. The liver, spleen, pancreas, adrenals and kidneys are within normal limits. Gallbladder is distended with small gallstone present, but no gallbladder wall thickening or pericholecystic inflammatory cortez ge. There are atherosclerotic calcifications of the aorta. No lymphadenopathy. Large umbilical hernia present, containing mesenteric fat and multiple small bowel loops. No bowel ob struction or bowel wall thickening evident. Prominent stool present at the rectum. Urinary bladder is unremarkable. No pelvic mass evident. No ascites. Impression: Small right pleural effusion with complete right lower lobe atelectasis and associated fluid and/or d ebris within the right lower lobe bronchus. Probable mild emphysema. Large umbilical hernia containing multiple small bowel loops and large amount of mesenteric fat, with out evidence of bowel obstruction or bowel wall thickening. Prominent stool the rectum. Correlate for fecal impaction. Cholelithiasis. Reviewed, dictated and finalized at [facility]. Impression: Small right pleural effusion with complete right lower lobe atelectasis and ass ociated fluid and/or debris within the right lower lobe bronchus. Probable mild emphysema. Large umbilical hernia containing multiple small bowel loops and large amount o f mesenteric fat, without evidence of bowel obstruction or bowel wall thickenin g. Prominent stool the rectum. Correlate for fecal impaction. Cholelithiasis.
--- NOTE | ~2023-07-26 | CT_ITS ---
EXAMINATION: CT brain wo con DATE: 07/26/2023 19:41 INDICATION: Altered mental status. TECHNIQUE: Computed tomography (CT) of the head was performed without intravenous contrast. The mA wa s adjusted according to patient size. Iterative reconstruction technique was employed. The dose-lengt h product was 756.67 mGy-cm. COMPARISON: Head CT 07/05/2023 FINDINGS: There is an old infarct in right occipital lobe. There are scattered areas of low attenuati on in the cerebral white matter. There is a 13 mm hyperdense mass at the right side of the falx anter iorly, consistent with a meningioma. There is no acute ischemic infarct or intracranial hemorrhage. T he ventricles are normal in size. There are likely changes of ocular lens replacement surgeries. Ther e is mucosal thickening in the paranasal sinuses. There is sclerosis of the benz of sphenoid sinus, consistent with chronic sinusitis. There are bilateral mastoid effusions. IMPRESSION: 1. 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 2. 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 3. Stable moderate nonspecific cerebral white matter disease, which likely represents chronic small v essel ischemic disease. 4. Chronic sinusitis. Reviewed, dictated and finalized at location E. IMPRESSION: 1. 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 2. 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 3. Stable moderate nonspecific cerebral white matter disease, which likely repr esents chronic small vessel ischemic disease. 4. Chronic sinusitis.
--- NOTE | ~2023-07-26 | XR_ITS ---
EXAMINATION: SNIFF TEST W/O CXR +FLUORO<1HR DATE: 02/12/11 11:13:00 INDICATION: Left diaphragmatic paralysis TECHNIQUE: Fluoroscopy was utilized for evaluation of diaphragmatic excursion with rapid inspiration. Fluoroscopy exposure time was 0.1 minutes. A total of 73 fluoroscopic images were recorded. Total D AP was 1.528 Gycm^2 COMPARISON: None. FINDINGS: Mild elevation of the left hemidiaphragm. There is relatively symmetric caudal excursion of both the left and right leaves of the diaphragm with rapid inspiration. Visualized portions of lung are clear. Heart size is normal. IMPRESSION: 1. Mild elevation of left hemidiaphragm but with normal sniff test. No evidence of phrenic nerve pal sy. Reviewed, dictated and finalized at location A. IMPRESSION: 1. Mild elevation of left hemidiaphragm but with normal sniff test. No evidenc e of phrenic nerve palsy.
--- NOTE | ~2023-07-26 | XR_ITS ---
Portable chest x-ray Comparison: 07/28/2023 Clinical History: Respiratory failure Findings: Left-sided PICC line in satisfactory position. There is mild hazy right basilar airspace d isease. There is linear left basilar scarring or atelectasis. Cardiomediastinal silhouette is stable . Bones and soft tissues are unremarkable. Impression: Stable right-sided PICC line. Hazy right basilar airspace disease. Correlate for layering effusion, pulmonary edema, or less likely pneumonia. Linear scarring or atelectasis left lung base. Reviewed, dictated and finalized at location . Impression: Stable right-sided PICC line. Hazy right basilar airspace disease. Correlate for layering effusion, pulmonary edema, or less likely pneumonia. Linear scarring or atelectasis left lung base.
--- NOTE | ~2023-07-26 | XR_ITS ---
EXAMINATION: XR chest 1V portable DATE: 07/29/2023 08:40 INDICATION: Nonfunctioning PICC line. Assess PICC line positioning TECHNIQUE: frontal view of the chest was obtained. COMPARISON: Chest radiograph dated 07/29/2023 at 5:37 AM and dated 07/28/2023 FINDINGS: Left upper extremity peripherally inserted central venous catheter (PICC) in unchanged position with distal tip at the cephalad superior vena cava. No interval change in hazy airspace opacities in the r ight lower lung zone with obscuration of the costophrenic angle consistent with small posterior layer ing small right pleural effusion with associated compressive atelectasis and/or pneumonia. Unchanged elevation of the right hemidiaphragm. Mild linear discoid atelectasis in the bilateral lower lung zon es. Heart size is normal. Coronary artery stenting. Surgical clips in the epigastric region. Advanced bilateral glenohumeral osteoarthritis. IMPRESSION: 1. Left upper extremity PICC line tip at the cephalad-most superior vena cava. 2. Small right pleural effusion with associated right basilar atelectasis and/or pneumonia. Reviewed, dictated and finalized at location A. IMPRESSION: 1. Left upper extremity PICC line tip at the cephalad-most superior vena cava. 2. Small right pleural effusion with associated right basilar atelectasis and/o r pneumonia.
--- NOTE | ~2023-07-26 | XR_ITS ---
EXAMINATION: XR chest PICC line DATE: 07/27/2023 13:26 INDICATION: PICC line placement. TECHNIQUE: A single frontal view of the chest was obtained. COMPARISON: Chest single view 07/26/2023, chest CT 07/26/2023 FINDINGS: There are airspace opacities in the lower lung zones, right worse than left. There is a sma ll right pleural effusion. No pneumothorax. Cardiomegaly is noted. A left upper extremity peripherall y inserted central venous catheter (PICC) is seen with tip in the superior vena cava. There are surgi shanti clips in the abdomen. IMPRESSION: 1. PICC tip in the superior vena cava. 2. Stable airspace opacities in the lower lung zones, right worse than left, consistent with atelecta sis versus pneumonia. 3. Stable small right pleural effusion. 4. Cardiomegaly. Reviewed, dictated and finalized at location A. IMPRESSION: 1. PICC tip in the superior vena cava. 2. Stable airspace opacities in the lower lung zones, right worse than left, co nsistent with atelectasis versus pneumonia. 3. Stable small right pleural effusion. 4. Cardiomegaly.
--- NOTE | ~2023-07-26 | XR_ITS ---
Portable chest x-ray Comparison: 07/27/2023 Clinical History: Respiratory failure Findings: Left-sided PICC line in place. Minimal right pleural effusion present. There is central di sc change and probable minimal bibasilar pulmonary edema, right worse than left. Cardiomediastinal s ilhouette is stable. Bones and soft tissues are unremarkable. Impression: Left-sided PICC line in place. Minimal right pleural effusion with central congestive change and mild bibasilar pulmonary edema, rig ht worse than left. Correlate clinically for pneumonia. Reviewed, dictated and finalized at [facility]. Impression: Left-sided PICC line in place. Minimal right pleural effusion with central congestive change and mild bibasila r pulmonary edema, right worse than left. Correlate clinically for pneumonia.
--- NOTE | 2023-07-26 19:06 | ECG_ITS ---
SEE SCANNED COPY FOR CONFIRMED REPORT MTDD
[2023-07-26 19:21] LABS: Basophils Percent Auto 0.3 % (0.2-1.2); Hematocrit 42.1 % (42.0-52.0); Hemoglobin 12.5 g/dL (14.0-18.0); Immature Granulocyte Absolute 0.08 K/mm3 (0.00-0.031); Immature Granulocyte Percent A 0.8 % (0-0.5); Lymphocytes Absolute Auto 1.23 K/mm3 (0.9-3.2); Lymphocytes Percent Auto 11.8 % (18.3-44.2); Mean Corpuscular HGB Conc 29.7 g/dl (32-36); Mean Corpuscular Hemoglobin 26.2 pg (26-34); Mean Corpuscular Volume 88.3 fl (80-100); Mean Platelet Volume 10.6 fl (7.4-10.4); Monocytes Absolute Auto 1.1 K/mm3 (0.1-0.6); Monocytes Percent Auto 10.5 % (2.6-8.5); Neutrophils Percent Auto 76.6 % (45.5-73.1); Platelet Count Result 251 k/mm3 (150-375); Red Blood Count 4.77 M/mm3 (4.6-6.20); Red Cell Distribution Width 17.7 % (11.5-14.5); White Blood Count 10.5 K/mm3 (4.5-10.0)
[2023-07-26 19:31] LABS: Ethanol < 10 mg/dL (<10)
[2023-07-26 19:35] LABS: INR 1.1; Prothrombin Time 14.4 Seconds (11.1-14.7)
[2023-07-26 19:36] LABS: Alanine Aminotransferase 15 U/L (6-50); Albumin Level 3.1 g/dL (3.5-5.1); Alkaline Phosphatase 213 U/L (38-126); Aspartate Amino Transferase 26 U/L (17-59); Bilirubin,Total 0.7 mg/dL (0.2-1.3); Blood Urea Nitrogen 29 mg/dL (9-20); Calcium 7.9 mg/dL (8.4-10.2); Carbon Dioxide > 40 mmol/L (22-30); Chloride 85 mmol/L (98-107); Estimated CRCL calculation 60 ml/min; Estimated Glomerular Filt Rate > 60; Glucose 102 mg/dL (65-110); Lipase 39 U/L (23-300); Magnesium 1.3 mg/dL (1.6-2.3); Partial Thromboplastin Time 41.5 Seconds (22.3-36.8); Phosphorus 3.1 mg/dL (2.5-4.5); Potassium 3.6 mmol/L (3.4-5.0); Sodium 134 mmol/L (137-145)
[2023-07-26 19:47] LABS: NT Pro B Type Natriuretic Pept 5230 pg/mL (19.9-100)
[2023-07-26 20:12] LABS: Influenza A QL RT-PCR Negative (Negative); Influenza B QL RT-PCR Negative (Negative); RSV RNA, RT-PCR Negative (Negative); SARS-CoV-2 RNA PCR Negative (Negative)
[2023-07-26 20:44] LABS: Alveolar/Arterial O2 Gradient 74.1 mmHg; Base Excess ABG 18.1 mEq/l (+/-2.0); Fractional Inspired Oxygen 28 %; HCO3 ABG 45.2 mEq/l (22.0-26.0); Oxygen Content ABG 15.2 %vol (16.0-22.0); PO2 FiO2 Ratio Arterial Blood 1.78 %; pH ABG 7.466 (7.350-7.450)
[2023-07-26 20:47] LABS: PCO2 ABG 64.1 mmHg (35.0-45.0); PO2 ABG 49.9 mmHg (80.0-100.0)
[2023-07-26 20:48] LABS: Device NASAL CANNULA; Oxygen Saturation ABG 86.1 % (95.0-100.0); Oxyhemoglobin 83.3 % THb (90.0-100.0); Site Drawn RIGHT BRACHIAL
[2023-07-26 21:00] LABS: Lactic Acid Reflex 1.3 mmol/L (0.7-2.0)
[2023-07-26] MEDS: MAGNESIUM SULF 2 GM/WATER 50ML 2 GM/50 ML BAG IVPB (21:02)
[2023-07-26 22:11] LABS: Appearance Urine Clear (Clear); Bilirubin Urine Negative (Negative); Blood Urine Negative (Negative); Color Urine Yellow (Yellow); Glucose Urine UA Negative (Negative); Ketones Urine Negative (Negative); Leukocyte Esterase Ur Negative LEU/UL (Negative); Nitrate Urine Negative (Negative); Protein Urine Negative (Negative); Specific Grav Ur 1.011 (1.001-1.035); pH Urine 6.5 (5.0-9.0)
--- NOTE | 2023-07-26 22:11 | PC.NURSE ---
while changing patients depends, stage 2 bed wound was noted to the coccyx area. MD visualized and patient was turned on right side with barrier cream applied
--- NOTE | 2023-07-26 22:13 | ED.GENADULT ---
HPI - General Adult General Chief complaint: Altered Mental Status Stated complaint: altered mental status Time Seen by Provider: 07/26/23 19:00 History of Present Illness HPI narrative: This is an 83-year-old with dementia a multiple medical comorbidities presenting for possible altered mental status. Family was concerned because patient was more confused than usual, mumbling to himself and possibly hallucinating. They sent the patient to the hospital to be evaluated. Information was obtained from the patients granddaughter via phone. She says that he frequently becomes confused when he has an infection. The patient himself does not have any complaints. He is A&O x1 and tends to mumble/speak very quickly. Patient cannot provide meaningful history during the interview. Following commands. Full code Related Data Home Medications Medication Instructions Recorded Confirmed sennosides 8.6 mg-docusate sodium 1 tab-cap PO DAILY PRN Constipation 06/08/22 07/10/23 50 mg capsule acetaminophen 650 mg tablet 650 mg PO Q6H PRN Pain 06/01/23 07/10/23 furosemide 40 mg tablet 40 mg PO BID 06/01/23 07/10/23 ipratropium 0.5 mg-albuterol 3 mg 3 ml inhalation QID PRN Shortness 06/01/23 07/10/23 (2.5 mg base)/3 mL nebulization Of Breath Or Wheezing soln metoprolol tartrate 37.5 mg tablet 37.5 mg PO BID 06/01/23 07/10/23 pantoprazole 40 mg tablet,delayed 40 mg PO BID 06/01/23 07/10/23 release miconazole nitrate 2 % topical 1 applic topical Q6H 06/02/23 07/10/23 powder donepezil 10 mg tablet 10 mg PO DAILY 07/11/23 07/11/23 fluoxetine 10 mg capsule 10 mg PO DAILY 07/11/23 07/11/23 pregabalin 75 mg capsule 75 mg PO QID 07/11/23 07/11/23 tramadol 50 mg tablet 50 mg PO QID PRN Pain 07/11/23 07/11/23 Allergies Allergy/AdvReac Type Severity Reaction Status Date / Time No Known Allergies Allergy Verified 07/10/23 13:58 [facility] Past Medical History Medical History Arthritis Atrial flutter Benign prostatic hyperplasia Cerebrovascular accident 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 Chronic anemia Chronic obstructive pulmonary disease Chronic pain Patient had a pain pump inserted in February 2019. Chronic respiratory failure with hypoxia, on home oxygen therapy Baseline oxygen requirement is 3 L nasal cannula. Congestive heart failure Echocardiogram February 2021: EF 55-60% (improved from prior echo of 45%) left ventricular septal wall motion abnormal related to bundle-branch block, grade 2 diastolic dysfunction, severe pulmonary hypertension with RVSP of 74, severe enlargement of the right atrium Coronary artery disease Diabetic neuropathy Gastroesophageal reflux disease History of bleeding peptic ulcer History of myocardial infarction Hypertension Iron deficiency anemia Receives frequent iron infusions. Liver cirrhosis Moderate pulmonary hypertension Estimated pulmonary arterial systolic pressure was 54 mmHg on echocardiogram dated 10/25/2020. Obstructive sleep apnea Paroxysmal atrial fibrillation Pseudobulbar affect Spinal stenosis Type 2 diabetes mellitus Hemoglobin A1c was 6.3% on 10/25/2020. Surgical History Surgical History History of bilateral cataract extraction History of bowel resection Dr Torres (2008) [place] and approx 2015 History of hernia repair 3 Family History Family History Father Acute myocardial infarction Sibling Acute myocardial infarction Brain aneurysm Other No problems noted. 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 Code status: Full code. Smoking packs per day: 3 Smoking cigarettes per day: 60.0 Years smoked: 30 Smoki
[2023-07-26 22:18] LABS: Add Urine Microscopic? NO
[2023-07-26 22:28] LABS: Amphetamine Screen Urine Negative (Negative); Barbiturate Screen Urine Negative (Negative); Benzodiazepines Screen Urine Negative (Negative); Cannabinoid Screen Urine Negative (Negative); Cocaine Screen Urine Negative (Negative); Methadone Screen Urine Negative (Negative); Opiate Screen Urine Positive (Negative); Phencyclidine Screen Urine Negative (Negative)
[2023-07-26 22:32] LABS: Troponin I 0.023 ng/mL (0.000-0.034)
--- NOTE | 2023-07-26 23:43 | PC.NURSE ---
care and report given to SYDNEY Rankin. all questions answered.
[2023-07-27] VITALS (55 sets, daily range): BP systolic 80–130; BP diastolic 52–88; PULSE 80–111; RESP 13–35; TEMP 35.9–37.1; O2SAT 82–100; BMI 26.4
--- NOTE | 2023-07-27 01:09 | PM.IMHP ---
H&P: HPI History of Present Illness Date/Time: 07/27/23 01:09 Chief Complaint: altered mental status Narrative: this is an 83-year-old male with past medical history significant for chronic hypoxic and hypercarbic respiratory failure, supplemental oxygen, congestive heart failure, obstructive sleep apnea, dementia, coronary artery disease, gastroesophageal reflux disease, paroxysmal atrial fibrillation, type diabetes mellitus, spinal stenosis. Patient recently discharged after being treated for fecal impaction and pneumonia, is brought today to the emergency room due to altered mental status, lethargy as per family. Preliminary workup was significant for persistent lung infiltrate. Patient is unable to provide any history due to altered mental status at the time of my visit patient is on BiPAP. EXAMINATION: CT brain wo con DATE: 07/26/2023 19:41 INDICATION: Altered mental status. TECHNIQUE: Computed tomography (CT) of the head was performed without intravenous contrast. The mA was adjusted according to patient size. Iterative reconstruction technique was employed. The dose-length product was 756.67 mGy-cm. COMPARISON: Head CT 07/05/2023 FINDINGS: There is an old infarct in right occipital lobe. There are scattered areas of low attenuation in the cerebral white matter. There is a 13 mm hyperdense mass at the right side of the falx anteriorly, consistent with a meningioma. There is no acute ischemic infarct or intracranial hemorrhage. The ventricles are normal in size. There are likely changes of ocular lens replacement surgeries. There is mucosal thickening in the paranasal sinuses. There is sclerosis of the benz of sphenoid sinus, consistent with chronic sinusitis. There are bilateral mastoid effusions. IMPRESSION: 1. 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 2. 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 3. Stable moderate nonspecific cerebral white matter disease, which likely represents chronic small vessel ischemic disease. 4. Chronic sinusitis. EXAMINATION: XR chest 1V DATE: 07/26/2023 19:42 INDICATION: Altered mental status. TECHNIQUE: A single frontal view of the chest was obtained. COMPARISON: Chest single view 07/10/2022, CT abdomen and pelvis 07/10/2023 FINDINGS: There are airspace opacities at right lung base. There is mild atelectasis at left lung base. There is a small right pleural effusion. No pneumothorax. Cardiomegaly is noted. There are surgical clips in the abdomen. IMPRESSION: 1. Airspace opacities at right lung base, consistent with atelectasis versus pneumonia. 2. Small right pleural effusion. 3. Cardiomegaly. Review of Systems Review of Systems: ROS unobtainable: Yes unobtainable due to mental status ( obtundation) [facility] Past Medical History Medical History Arthritis Atrial flutter Benign prostatic hyperplasia Cerebrovascular accident 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 Chronic anemia Chronic obstructive pulmonary disease Chronic pain Patient had a pain pump inserted in February 2019. Chronic respiratory failure with hypoxia, on home oxygen therapy Baseline oxygen requirement is 3 L nasal cannula. Congestive heart failure Echocardiogram February 2021: EF 55-60% (improved from prior echo of 45%) left ventricular septal wall motion abnormal related to bundle-branch block, grade 2 diastolic dysfunction, severe pulmonary hypertension with RVSP of 74, severe enlargement of the right atrium Coronary artery disease Diabetic neuropathy Gastroesophageal reflux disease History of bleeding peptic ulcer History of myocardial infarction Hypertension Iron deficiency anemia Receives frequent iron infusions. Liver cirrhosis Moderate pulmonary hypertension Estimated pulmonary arterial systolic pressure was 54 mmHg on echocardiogram dated 10/25/2020. Obstructive sleep apnea Paroxysmal atrial fibrillation Pseudobulbar affec
[2023-07-27] MEDS: CEFEPIME 2 GM/NS 50 ML 2 GM/50 ML BAG IVPB (01:50)
--- NOTE | 2023-07-27 02:00 | PC.NURSE ---
Pt found to have a skin tear to left wrist area where the patient band was initially placed. ERP Dr. Reid aware. Skin tear cleansed with wound cleanser and dressed with gauze.
[2023-07-27] MEDS: VANCOMYCIN 1,750 MG/NS 500 ML 1,750 MG/500 ML BAG 250 MG IVPB (02:10)
--- NOTE | 2023-07-27 03:10 | PC.NURSE ---
Pt depend changed at this time.
--- NOTE | 2023-07-27 04:04 | ADMGEN ---
This patient, Zack Orellana, was admitted to IMU Room 204-01 at 0325. Patient/family oriented to hospital policies and general routines including ID bracelet, bed and alarms, visiting hours, pain management, procedures, bathroom and other care routines, personal items, smoking policy, room service/diet, and visiting hours. Information on how to activate the Rapid Response Team has been discussed. Patient/Family are encouraged to report perceived risks to care and to ask questions if they do not understand what they are told or what they should do.
--- NOTE | 2023-07-27 04:41 | ECG_ITS ---
SEE SCANNED COPY FOR CONFIRMED REPORT MTDD
[2023-07-27] MEDS: AZITHROMYCIN 500 MG/NS 250 ML 500 MG/250 ML BAG 250 MG IVPB (04:48)
[2023-07-27 08:31] LABS: Basophils Percent Auto 0.4 % (0.2-1.2); Eosinophils Absolute Auto 0.1 K/mm3 (0-0.3); Eosinophils Percent Auto 0.5 % (0-4.4); Hematocrit 41.2 % (42.0-52.0); Hemoglobin 12.1 g/dL (14.0-18.0); Immature Granulocyte Absolute 0.05 K/mm3 (0.00-0.031); Immature Granulocyte Percent A 0.5 % (0-0.5); Lymphocytes Absolute Auto 1.32 K/mm3 (0.9-3.2); Lymphocytes Percent Auto 11.9 % (18.3-44.2); Mean Corpuscular HGB Conc 29.4 g/dl (32-36); Mean Corpuscular Hemoglobin 26.3 pg (26-34); Mean Corpuscular Volume 89.6 fl (80-100); Monocytes Absolute Auto 1.1 K/mm3 (0.1-0.6); Monocytes Percent Auto 9.5 % (2.6-8.5); Neutrophils Absolute Auto 8.6 K/mm3 (1.3-6.7); Neutrophils Percent Auto 77.2 % (45.5-73.1); Platelet Count Result 244 k/mm3 (150-375); Red Cell Distribution Width 17.8 % (11.5-14.5); White Blood Count 11.1 K/mm3 (4.5-10.0)
--- NOTE | 2023-07-27 08:33 | PM.IMPN ---
Progress Note: A&P Assessment and Plan (1) Right lower lobe pneumonia: Code(s): J18.9 - Pneumonia, unspecified organism Status: Acute Assessment and Plan: Admit to IMU patient started on cefepime vanc and Zithromax cultures in progress 07/26: BiPAP pressures increased, Mucomyst nebs, DuoNebs, chest CPT ordered at recommendation pulmonology who stated that they would do bronchoscopy if patient ends up intubated and it is necessary. This was curbside rather than formal consult at this point. After long family discussion, ICU consulted for likely intubation. (2) Chronic respiratory failure with hypoxia and hypercapnia: Code(s): J96.11 - Chronic respiratory failure with hypoxia; J96.12 - Chronic respiratory failure with hypercapnia Status: Acute Assessment and Plan: currently on BiPAP ABG reviewed 07/26: ICU consulted, likely and patient (3) Pleural effusion on right: Code(s): J90 - Pleural effusion, not elsewhere classified Status: Acute Assessment and Plan: continue to monitor (4) Chronic pain syndrome: Code(s): G89.4 - Chronic pain syndrome Status: Acute Assessment and Plan: Tylenol p.r.n. (5) Chronic obstructive pulmonary disease: Code(s): J44.9 - Chronic obstructive pulmonary disease, unspecified Status: Acute Assessment and Plan: breathing treatments (6) Chronic diastolic congestive heart failure: Code(s): I50.32 - Chronic diastolic (congestive) heart failure Status: Acute Assessment and Plan: patient appears euvolemic on physical exam daily intake and output (7) MALLORY (obstructive sleep apnea): Code(s): G47.33 - Obstructive sleep apnea (adult) (pediatric) Status: Acute Assessment and Plan: currently on BiPAP (8) Paroxysmal atrial fibrillation: Code(s): I48.0 - Paroxysmal atrial fibrillation Status: Acute Assessment and Plan: 07/26: Controlled heart rate at this time Time Spent With Patient Time with patient: Greater than 35 minutes (Total 90 minutes including family consultation to discuss her care verses escalation care to ICU) Subjective Date/time seen: 07/27/23 08:33 Interval history: Patient was sent from half-way to the emergency department due to altered mental status lower blood pressure. In the emergency department he was found to findings of right lower lobe pneumonia which appears to be a recurrent problem. Antibiotics started azithromycin cefepime vancomycin. Patient placed BiPAP. CT scan showed that right lower lobe is collapsed due to atelectasis with fluid and debris in the bronchus. IPAP EPAP increased, added Mucomyst scheduled DuoNebs and CPT orders. Discussed with pulmonology and if patient gets intubated pulmonology would do bronchoscopy here if necessary. Formal Pulmonary consult not yet initiated. Throughout morning patient's respiratory rate continued increase in his level of consciousness waxed and waned. Contacted family to discuss patient's full code wishes. Recently updated advanced directive signed in June 2023 by patient and his primary care regarding full resuscitative measures with copy on the chart. After lengthy discussion an options regarding comfort measures, hospice, intubation or continuing current family to attempt intubation to give patient to make a recovery. and daughter in full agreement that if his heart stops they would not want to continue CPR. Weather Stripper consulted. Review of Systems Review of Systems: ROS unobtainable: Yes unobtainable due to medical condition and unobtainable due to mental status Exam Narrative: GENERAL: Elderly male chronically ill-appearing tachypneic on BiPAP HEAD: Normocephalic, atraumatic. ENT:? Mucous membranes dry CHEST: Tachypnea, course diminished lung sounds throughout HEART: Regular rate and rhythm. ? Normal peripheral pulses. ABDOMEN: Soft, nontender, n
[2023-07-27 08:47] LABS: Albumin Level 2.9 g/dL (3.5-5.1); Blood Urea Nitrogen 26 mg/dL (9-20); Calcium 8.1 mg/dL (8.4-10.2); Carbon Dioxide > 40 mmol/L (22-30); Chloride 89 mmol/L (98-107); Estimated CRCL calculation 71 ml/min; Estimated Glomerular Filt Rate > 60; Glucose 136 mg/dL (65-110); Magnesium 1.7 mg/dL (1.6-2.3); Phosphorus 3.5 mg/dL (2.5-4.5); Potassium 3.4 mmol/L (3.4-5.0); Sodium 134 mmol/L (137-145)
[2023-07-27 09:11] LABS: Glucose Point of Care 148 mg/dl (65-105)
[2023-07-27] MEDS: IPRATROPIUM 0.5 MG/ALBUTEROL SULFATE 2.5 MG AMPUL.NEB 3 ML INHALATION ×4 (09:30→20:38)
[2023-07-27] MEDS: ACETYLCYSTEINE 20% INHAL SOLN 800 MG/4 ML VIAL 200 MG INHALATION ×3 (09:30→20:38)
[2023-07-27] MEDS: POTASSIUM CHLORIDE INJ 40 MEQ in SODIUM CHLORIDE 0.9% IV 500 ML 65 MEQ IVPB (09:41)
[2023-07-27] MEDS: ENOXAPARIN 40 MG/0.4 ML SYRINGE SUB-Q (09:41)
[2023-07-27 10:38] LABS: Hemoglobin A1C 6.4 % (<5.7)
--- NOTE | 2023-07-27 11:25 | PCRCNOTE ---
ABG'S held per family request.
[2023-07-27 12:13] LABS: Glucose Point of Care 131 mg/dl (65-105)
[2023-07-27 12:42] LABS: Alveolar/Arterial O2 Gradient 59.3 mmHg; Base Excess ABG 11.6 mEq/l (+/-2.0); Fractional Inspired Oxygen 30 %; HCO3 ABG 39.2 mEq/l (22.0-26.0); Oxygen Content ABG 17.3 %vol (16.0-22.0); Oxygen Saturation ABG 95.1 % (95.0-100.0); Oxyhemoglobin 92.9 % THb (90.0-100.0); PO2 ABG 77.9 mmHg (80.0-100.0); Total Hemoglobin 13.2 g/dL (12.0-18.0); pH ABG 7.396 (7.350-7.450)
[2023-07-27 12:44] LABS: PCO2 ABG 65.3 mmHg (35.0-45.0)
[2023-07-27 12:47] LABS: Device NON-INVASIVE VENT; Site Drawn RIGHT BRACHIAL
[2023-07-27 12:48] LABS: Non-Invasive Expiratory Pressure 10 CMH2O; Non-Invasive Inspiratory Pressure 14 CMH2O; Non-Invasive Vent Rate 18 /MIN
[2023-07-27] MEDS: LIDOCAINE HCL 1% PF INJ 5 ML VIAL INFILTRATE (12:50)
--- NOTE | 2023-07-27 12:52 | WPDCNINT ---
Assessment and Plan Assessment and plan (1) Acute on chronic respiratory failure with hypoxia and hypercapnia: Code(s): J96.21 - Acute and chronic respiratory failure with hypoxia; J96.22 - Acute and chronic respiratory failure with hypercapnia Status: Acute Assessment and Plan: Multifactorial Acute on chronic Respiratory failure secondary to COPD, congestive heart failure, right lower lobe pneumonia, right lower lobe atelectasis. At baseline he is on 3 L by nasal cannula Patient now on BiPAP. Patient is alert oriented x3, not in any respiratory distress, able to speak full sentences, denies feeling short of breath, looks comfortable on the BiPAP. Will continue BiPAP at this time. Will transfer patient to ICU for close monitoring. He may need intubation if he deteriorates or does not improve but this time I will continue with the trial of BiPAP. ABG reviewed and shows compensated hypercarbia and PO2 of 77.9 on 30% FiO2. Will change BiPAP /. Wean FiO2 Continue bronchodilators Possibility of aspiration as a etiology hence will change the antibiotics to vancomycin and Zosyn And p.o. Blood cultures have been sent and are pending His blood pressure has been acceptable now and lactic acid level was normal CPT and and acetylcysteine ordered for atelectasis PCR for influenza RSV and COVID was negative Hold diuretics since no significant pulmonary edema or edema in the legs this time in light of pneumonia (2) Right lower lobe pneumonia: Code(s): J18.9 - Pneumonia, unspecified organism Status: Acute Assessment and Plan: See above (3) Pleural effusion on right: Code(s): J90 - Pleural effusion, not elsewhere classified Status: Acute Assessment and Plan: See above (4) Chronic pain syndrome: Code(s): G89.4 - Chronic pain syndrome Status: Acute Assessment and Plan: Patient has a chronic morphine pain pump. Monitor respiratory status closely (5) Type 2 diabetes mellitus: Qualifiers: Diabetes mellitus long term care social worker insulin use: without half-way use Diabetes mellitus complication status: without complication Qualified Code(s): E11.9 - Type 2 diabetes mellitus without complications Code(s): E11.9 - Type 2 diabetes mellitus without complications Status: Chronic Assessment and Plan: Continue sliding scale (6) A-fib: Code(s): I48.91 - Unspecified atrial fibrillation Status: Acute Assessment and Plan: History of AFib but controlled ventricular rate at this time. Not on anticoagulation as an outpatient. Will add aspirin Continue DVT prophylaxis Lovenox (7) Constipation: Code(s): K59.00 - Constipation, unspecified Status: Acute Assessment and Plan: Laxatives ordered Will order enema if ineffective Plan DVT prophylaxis -Lovenox Nutrition -npo Code Status -patient is Full Code Case discussed with internal medicine provider and patient's daughter at bedside. Total Critical Care Time - 35 minutes Due to a high probability of clinically significant, life threatening deterioration, the patient required my highest level of preparedness to intervene emergently and I personally spent this critical care time directly and personally managing the patient. This critical care time included obtaining a history; examining the patient; pulse oximetry; ordering and review of studies; arranging urgent treatment with development of a management plan; evaluation of patient's response to treatment; frequent reassessment; and discussions with other providers. It was exclusive of separately billable procedures and treating other patients and teaching time. Please see Assessment and Plan section and the rest of the note for further information on patient assessment and treatment Applications Engineering Manager Consult Note Consult date: 07/27/23 Reason for consult: Acute on chronic respiratory failure HPI: Zack Orellana is a 83 year old male
[2023-07-27] MEDS: MAGNESIUM SULF 2 GM/WATER 50ML 2 GM/50 ML BAG IVPB (13:27)
[2023-07-27] MEDS: AMPICILLIN SULB 3 GM/NS 100 ML 3 GM/100 ML VIAL IVPB ×2 (14:00→20:15)
--- NOTE | 2023-07-27 14:07 | PC.NURSE ---
This patient, Zack Orellana, was received from [[phone] ] on 07/27/23 at 1350. Patient/family oriented to unit policies and routines. Bedside report received from Emelia Jacobsen RN
[2023-07-27] MEDS: CENTRAL LINE FLUSH 10 ML IV PUSH ×2 (14:36→20:15)
[2023-07-27 15:30] LABS: MRSA (PCR) NOT DETECTED (NOT DETECTE)
[2023-07-27 16:34] LABS: Glucose Point of Care 159 mg/dl (65-105)
[2023-07-27] MEDS: VANCOMYCIN 1,000 MG/NS 250 ML 1,000 MG/250 ML BAG 250 MG IVPB (21:22)
[2023-07-27 21:29] LABS: Glucose Point of Care 176 mg/dl (65-105)
[2023-07-28] VITALS (24 sets, daily range): BP systolic 89–130; BP diastolic 58–74; PULSE 69–109; RESP 14–29; TEMP 36.5–37.2; O2SAT 93–99
--- NOTE | 2023-07-28 | ECHO_ITS ---
Patient Info Name: Zack Orellana Age: 83 years : 1940 Gender: Male Ht: 62 in Wt: 158 lbs BSA: 1.79 m2 HR: 99 bpm BP: 113 / 74 mmHg Heart Rhythm: Sinus Rhythm Technical Quality: Fair Exam Date: 07/28/2023 9:37 AM Exam Location: Echo Lab Patient Status: Inpatient Admit Date: 07/27/2023 Staff Ordering Physician: Fidelina Pineda MD Replanter: Mady Berkowitz RDCS Attending Provider: Nena Juarez MD Referring Physician: Edwin CARDENAS; Exam Type: CA echo doppler color flow Study Info Indications - Severe pulmonary hypertension, chf Complete two-dimensional, color flow and Doppler transthoracic echocardiogram is performed with contrast to opacify the left ventricle and to improve the deliniation of the left ventricle endocardial borders. Contrast/Agitated Saline Contrast/Ag. Saline: Definity Amount: 3.00 ml Administered By: Mady Berkowitz RDCS Existing IV Access: Yes IV Access Condition: patent with no signs of infiltration Summary 1. Definity contrast administered improved wall motion interpretation. 2. Left ventricular chamber dimension is moderately enlarged. 3. Left ventricular systolic function is moderately globally reduced, estimated at 35-40%. 4. The left ventricular diastolic function is abnormal. 5. E/e' 10 is mildly elevated. 6. Left atrial chamber dimension is mildly enlarged. 7. Right atrial chamber dimension is mildly enlarged. 8. There is moderate aortic valve sclerosis. 9. The mitral valve has moderately calcified annulus. Left Ventricle E/e' 10 is mildly elevated. Definity contrast administered improved wall motion interpretation. Left ventricular chamber dimension is moderately enlarged. Left ventricular systolic function is moderately globally reduced, estimated at 35-40%. The left ventricular diastolic function is abnormal. Right Ventricle Right ventricular chamber dimension is normal. Right ventricular systolic function is normal. Left Atria Left atrial chamber dimension is mildly enlarged. Right Atria Right atrial chamber dimension is mildly enlarged. Aortic Valve The aortic valve is trileaflet. There is moderate aortic valve sclerosis. There is no aortic valve stenosis. There is no aortic valve regurgitation. Pulmonic Valve There is no pulmonic regurgitation. Mitral Valve The mitral valve has moderately calcified annulus. There is no mitral valve stenosis. There is no mitral valve regurgitation. Tricuspid Valve There is no tricuspid valve regurgitation. Pericardium/Pleural There is no pericardial effusion. Inferior Vena Cava Normal inferior vena cava with >50% collapse upon inspiration consistent with normal right atrial pressure, 5 mmHg. Aorta The aortic root size at the sinus of Valsalva is normal. Left Ventricular Outflow Tract Name Value Normal LVOT 2D LVOT Diameter 2.0 cm LVOT Doppler LVOT Peak Gradient 2 mmHg LVOT Mean Gradient 1 mmHg LVOT VTI 10 cm LVOT VTI/AV VTI Ratio 0.7 LVOT Stroke Volume 31 ml LVO
[2023-07-28] MEDS: AMPICILLIN SULB 3 GM/NS 100 ML 3 GM/100 ML VIAL IVPB ×4 (01:31→21:16)
[2023-07-28 01:38] LABS: Glucose Point of Care 177 mg/dl (65-105)
[2023-07-28] MEDS: IPRATROPIUM 0.5 MG/ALBUTEROL SULFATE 2.5 MG AMPUL.NEB 3 ML INHALATION ×4 (02:41→19:37)
[2023-07-28] MEDS: ACETYLCYSTEINE 20% INHAL SOLN 800 MG/4 ML VIAL 200 MG INHALATION ×3 (02:41→19:37)
[2023-07-28] MEDS: CENTRAL LINE FLUSH 10 ML IV PUSH ×2 (05:03→13:36)
[2023-07-28 05:23] LABS: Basophils Percent Auto 0.2 % (0.2-1.2); Hematocrit 39.6 % (42.0-52.0); Hemoglobin 11.6 g/dL (14.0-18.0); Immature Granulocyte Absolute 0.07 K/mm3 (0.00-0.031); Immature Granulocyte Percent A 0.6 % (0-0.5); Lymphocytes Absolute Auto 0.61 K/mm3 (0.9-3.2); Lymphocytes Percent Auto 4.9 % (18.3-44.2); Mean Corpuscular HGB Conc 29.3 g/dl (32-36); Mean Corpuscular Hemoglobin 26.2 pg (26-34); Mean Corpuscular Volume 89.4 fl (80-100); Mean Platelet Volume 10.8 fl (7.4-10.4); Monocytes Absolute Auto 1.1 K/mm3 (0.1-0.6); Monocytes Percent Auto 8.6 % (2.6-8.5); Neutrophils Absolute Auto 10.6 K/mm3 (1.3-6.7); Neutrophils Percent Auto 85.7 % (45.5-73.1); Platelet Count Result 232 k/mm3 (150-375); Red Blood Count 4.43 M/mm3 (4.6-6.20); Red Cell Distribution Width 18.1 % (11.5-14.5); White Blood Count 12.4 K/mm3 (4.5-10.0)
[2023-07-28 05:32] LABS: Alveolar/Arterial O2 Gradient 62.1 mmHg; Base Excess ABG 11.4 mEq/l (+/-2.0); Carboxyhemoglobin 1.7 % THb (0-2.0); Fractional Inspired Oxygen 30 %; HCO3 ABG 38.2 mEq/l (22.0-26.0); Methemoglobin ABG 0.3 %THb (0-1.5); Oxygen Content ABG 16.6 %vol (16.0-22.0); Oxygen Saturation ABG 95.7 % (95.0-100.0); Oxyhemoglobin 93.5 % THb (90.0-100.0); PO2 ABG 80.4 mmHg (80.0-100.0); PO2 FiO2 Ratio Arterial Blood 2.68 %; Reduced Hemoglobin 4.5 %THb (0-5.0); Total Hemoglobin 12.6 g/dL (12.0-18.0); pH ABG 7.416 (7.350-7.450)
[2023-07-28 05:33] LABS: PCO2 ABG 60.8 mmHg (35.0-45.0); Site Drawn RIGHT RADIAL
[2023-07-28 05:34] LABS: Device NON-INVASIVE VENT; Modified Allen's Test Pass
[2023-07-28 05:35] LABS: Non-Invasive Expiratory Pressure 8 CMH2O; Non-Invasive Inspiratory Pressure 14 CMH2O; Non-Invasive Vent Rate 18 /MIN
[2023-07-28 05:45] LABS: Alanine Aminotransferase 13 U/L (6-50); Albumin Level 2.7 g/dL (3.5-5.1); Alkaline Phosphatase 175 U/L (38-126); Aspartate Amino Transferase 24 U/L (17-59); Bilirubin,Total 0.7 mg/dL (0.2-1.3); Blood Urea Nitrogen 21 mg/dL (9-20); Calcium 8.3 mg/dL (8.4-10.2); Carbon Dioxide > 40 mmol/L (22-30); Chloride 94 mmol/L (98-107); Estimated CRCL calculation 80 ml/min; Estimated Glomerular Filt Rate > 60; Glucose 153 mg/dL (65-110); Magnesium 2.2 mg/dL (1.6-2.3); Potassium 3.8 mmol/L (3.4-5.0); Sodium 138 mmol/L (137-145)
[2023-07-28 05:47] LABS: Hypochromasia 2+; Ovalocytes 1+; Platelet Estimate Adequate (Adequate); Schistocytes Rare; Stomatocytes 1+
[2023-07-28 07:44] LABS: Glucose Point of Care 146 mg/dl (65-105)
--- NOTE | 2023-07-28 07:50 | PM.IMPN ---
Progress Note: A&P Assessment and Plan (1) Acute on chronic respiratory failure with hypoxia and hypercapnia: Code(s): J96.21 - Acute and chronic respiratory failure with hypoxia; J96.22 - Acute and chronic respiratory failure with hypercapnia Status: Acute Assessment and Plan: Multifactorial Acute on chronic Respiratory failure secondary to COPD, severe pulmonary hypertension, congestive heart failure, right lower lobe pneumonia/right lower lobe atelectasis, aspiration. At baseline he is on 3 L by nasal cannula -patient wearing his BiPAP -is awake, alert, oriented, was switched to nasal cannula this morning -will continue BiPAP p.r.n. -Pulmonology has been consulted -continue bronchodilators, Mucomyst nebulizer -continue vancomycin, azithromycin and Unasyn -speech to evaluate for bedside swallow test today - 07/25: No growth to date PCR for influenza RSV and COVID was negative -hemodynamics is stable, lactic acid was negative -will give a dose of IV Lasix today (2) Right lower lobe pneumonia: Code(s): J18.9 - Pneumonia, unspecified organism Status: Acute Assessment and Plan: Chest x-ray this morning: Left-sided PICC line in place. Minimal right pleural effusion with central congestive change and mild bibasilar pulmonary edema, right worse than left. Correlate clinically for pneumonia. Continue treatment as above (3) Pleural effusion on right: Code(s): J90 - Pleural effusion, not elsewhere classified Status: Chronic Assessment and Plan: See above (4) Chronic pain syndrome: Code(s): G89.4 - Chronic pain syndrome Status: Chronic Assessment and Plan: Patient has a chronic morphine pain pump. Monitor respiratory status closely (5) Type 2 diabetes mellitus: Qualifiers: Diabetes mellitus detention insulin use: without superintendent terminal use Diabetes mellitus complication status: without complication Qualified Code(s): E11.9 - Type 2 diabetes mellitus without complications Code(s): E11.9 - Type 2 diabetes mellitus without complications Status: Chronic Assessment and Plan: Continue sliding scale (6) A-fib: Code(s): I48.91 - Unspecified atrial fibrillation Status: Chronic Assessment and Plan: History of AFib but controlled ventricular rate at this time. Not on anticoagulation as an outpatient. Continue aspirin Continue DVT prophylaxis Lovenox (7) Constipation: Code(s): K59.00 - Constipation, unspecified Status: Acute Assessment and Plan: Laxatives ordered Will order enema if ineffective Plan DVT prophylaxis -Lovenox Nutrition -speech perform bedside swallow today Code Status : Modified code, NO CPR Time Spent With Patient Time with patient: Greater than 35 minutes Subjective Date/time seen: 07/28/23 07:50 Interval history: Patient awake in no distress on nasal cannula breathing easier. Patient located in ICU. Bedside floor tiling professional AFib with PVCs rate of 92 per my interpretation. He states that he feels good today. When I asked him about yesterday he still looked at me and stated ?yeah what the hell happened?? Called family to update on progress. Discussed case with machine packer. Echocardiogram ordered. Bedside speech swallow ordered. Patient appears much better and will likely get downgraded from ICU later today. Pulmonology consulted. Lasix ordered as chest x-ray appears to more pulmonary edema today than yesterday and he did not receive any of his oral medication yesterday. Review of Systems Review of Systems: All systems reviewed & are unremarkable except as noted in HPI and below Exam Narrative: General: Pt is frail old male who is alert awake and in NAD. On nasal cannula Lungs/Chest: Trachea central, decrease BS B/L, No crackles or wheezing. Cardiac: Irregularly irregular rhythm, normal heart rate Circulation: Pedal pulses are intact and symmetrical.
[2023-07-28] MEDS: ASPIRIN 325 MG ENTERIC TABLET PO (08:37)
[2023-07-28] MEDS: FERROUS SULFATE 325 MG TABLET DR PO (08:37)
[2023-07-28] MEDS: LINACLOTIDE 145 MCG CAPSULE PO (08:37)
[2023-07-28] MEDS: METOPROLOL TARTRATE TAB 25 MG, METOPROLOL TARTRATE TAB 12.5 MG 37.5 MG PO ×2 (08:37→21:17)
[2023-07-28] MEDS: AZITHROMYCIN 500 MG/NS 250 ML 500 MG/250 ML BAG 250 MG IVPB (08:37)
[2023-07-28] MEDS: FLUoxetine HCL 10 MG CAPSULE PO (08:38)
[2023-07-28] MEDS: ENOXAPARIN 40 MG/0.4 ML SYRINGE SUB-Q (08:38)
--- NOTE | 2023-07-28 08:55 | PM.CNPUL ---
Assessment and Plan Assessment and plan (1) Pleural effusion on right: Code(s): J90 - Pleural effusion, not elsewhere classified Status: Acute (2) Respiratory failure: Code(s): J96.90 - Respiratory failure, unspecified, unspecified whether with hypoxia or hypercapnia Status: Acute (3) Chronic respiratory failure with hypoxia and hypercapnia: Code(s): J96.11 - Chronic respiratory failure with hypoxia; J96.12 - Chronic respiratory failure with hypercapnia Status: Acute Assessment and Plan: This 83-year-old male patient has a complex medical history, including severe pulmonary hypertension as determined by an echocardiogram two years prior, a history of congestive heart failure, atrial fibrillation, coronary artery disease, and type 2 diabetes mellitus. He has had frequent hospital admissions mainly due to congestive heart failure and atrial fibrillation. Chest imaging studies have consistently shown chronic pleural effusions. His arterial blood gases indicate mild hypercapnic and hypoxemic respiratory failure, possibly compounded by metabolic alkalosis from diuretic use. Notably, his chest imaging studies reveal a chronic right pleural effusion associated with a right lower lobe atelectasis and a persistently elevated left diaphragm. The physical examination shows significant signs of diaphragmatic dysfunction, particularly notable abdominal paradox when in a supine position. The patient also has a large ventral hernia, which may be contributing to the diaphragmatic dysfunction, along with a paralyzed left diaphragm. His pulmonary hypertension is likely due to chronic nocturnal hypoxemia, potentially caused by diaphragmatic dysfunction or sleep-disordered breathing. Another contributing factor to his pulmonary hypertension is left ventricular diastolic dysfunction with severely enlarged left atrium on most recent echo. Chronic use of opiates via a subcutaneous pump may also be contributing to nocturnal hypoventilation and hypoxemia. His respiratory condition has shown improvement with BiPAP support and proactive pulmonary care. Once his respiratory status further stabilizes, chest fluoroscopy will be considered to investigate potential left diaphragm paralysis. Treatment plan: We will maintain his current pulmonary care regimen, which includes mucolytic agents twice daily, BiPAP support, and nebulized short-acting bronchodilators every six hours. The patient's ongoing right lower lobe atelectasis may be linked to his right pleural effusion, and there is uncertainty regarding potential right lower lobe pneumonia. Despite an elevated white cell count, he does not appear septic, so we will continue his antibiotic treatment. Further outpatient pulmonary function testing will be needed. Considering his chronic respiratory issues, we plan to discharge him with home ventilatory support. I will continue to monitor his progress in collaboration with you. (4) Abdominal pain, LLQ: Code(s): R10.32 - Left lower quadrant pain Status: Acute (5) Chronic obstructive pulmonary disease: Code(s): J44.9 - Chronic obstructive pulmonary disease, unspecified Status: Acute (6) Chronic diastolic congestive heart failure: Code(s): I50.32 - Chronic diastolic (congestive) heart failure Status: Acute (7) Pulmonary hypertension: Code(s): I27.20 - Pulmonary hypertension, unspecified Status: Acute History of Present Illness History of Present Illness Consult date: 07/28/23 Chief complaint: Altered mental status Narrative: An 82-year-old male was brought to the emergency room by EMS due to abdominal pain. His significant medical history includes congestive heart failure, severe pulmonary hypertension, coronary artery disease, chronic respiratory failure with potential hypoxia/hypercapnia, possible COPD, paroxysmal atrial fibrillation, type 2 diabetes mellitus, and chronic pain managed with a rod
[2023-07-28] MEDS: FUROSEMIDE INJ 40 MG/4 ML VIAL IV PUSH (09:03)
[2023-07-28] MEDS: PERFLUTREN LIPID MICROSPHERES 1.5 ML VIAL DILUTED TO 10 ML TOTAL VOLUME IV PUSH (10:00)
--- NOTE | 2023-07-28 11:03 | WPDINTPN ---
Progress Note: A&P Assessment and Plan (1) Acute on chronic respiratory failure with hypoxia and hypercapnia: Code(s): J96.21 - Acute and chronic respiratory failure with hypoxia; J96.22 - Acute and chronic respiratory failure with hypercapnia Status: Acute Assessment and Plan: Multifactorial Acute on chronic Respiratory failure secondary to COPD, severe pulmonary hypertension, congestive heart failure, right lower lobe pneumonia/right lower lobe atelectasis, aspiration. At baseline he is on 3 L by nasal cannula -patient wearing his BiPAP -is awake, alert, oriented, was switched to nasal cannula this morning -will continue BiPAP p.r.n. -Pulmonology has been consulted -continue bronchodilators, Mucomyst nebulizer -continue vancomycin, azithromycin and Unasyn -speech to evaluate for bedside swallow test today - 07/25: No growth to date PCR for influenza RSV and COVID was negative -hemodynamics is stable, lactic acid was negative -for give a dose of IV Lasix today (2) Right lower lobe pneumonia: Code(s): J18.9 - Pneumonia, unspecified organism Status: Acute Assessment and Plan: Chest x-ray this morning: Left-sided PICC line in place. Minimal right pleural effusion with central congestive change and mild bibasilar pulmonary edema, right worse than left. Correlate clinically for pneumonia. Continue treatment as above (3) Pleural effusion on right: Code(s): J90 - Pleural effusion, not elsewhere classified Status: Acute Assessment and Plan: See above (4) Chronic pain syndrome: Code(s): G89.4 - Chronic pain syndrome Status: Acute Assessment and Plan: Patient has a chronic morphine pain pump. Monitor respiratory status closely (5) Type 2 diabetes mellitus: Qualifiers: Diabetes mellitus complication status: without complication Diabetes mellitus supervisor intermediates insulin use: without supervisor intermediates use Qualified Code(s): E11.9 - Type 2 diabetes mellitus without complications Code(s): E11.9 - Type 2 diabetes mellitus without complications Status: Chronic Assessment and Plan: Continue sliding scale (6) A-fib: Code(s): I48.91 - Unspecified atrial fibrillation Status: Acute Assessment and Plan: History of AFib but controlled ventricular rate at this time. Not on anticoagulation as an outpatient. Continue aspirin Continue DVT prophylaxis Lovenox (7) Constipation: Code(s): K59.00 - Constipation, unspecified Status: Acute Assessment and Plan: Laxatives ordered Will order enema if ineffective Plan DVT prophylaxis -Lovenox Nutrition -speech perform bedside swallow today Code Status : Modified code, NO CPR Total Critical Care Time - 35 minutes Patient may transfer out of the ICU. 07/27: Discussed with patient's granddaughter, Lennie Cruz, who is the healthcare power of insurance defense attorney. Updated with patient's condition and plan of care. I answered all questions Due to a high probability of clinically significant, life threatening deterioration, the patient required my highest level of preparedness to intervene emergently and I personally spent this critical care time directly and personally managing the patient. This critical care time included obtaining a history; examining the patient; pulse oximetry; ordering and review of studies; arranging urgent treatment with development of a management plan; evaluation of patient's response to treatment; frequent reassessment; and discussions with other providers. It was exclusive of separately billable procedures and treating other patients and teaching time. Please see Assessment and Plan section and the rest of the note for further information on patient assessment and treatment Subjective Date/time seen: 07/28/23 11:03 Interval history: Reason consult: Respiratory distress, COPD exacerbation, pneumonia, altered mental status 07/28/2023: Patient se
[2023-07-28 11:16] LABS: Glucose Point of Care 147 mg/dl (65-105)
--- NOTE | 2023-07-28 11:40 | PCNFU ---
Nutrition Follow-Up Complete: Increased nutrient needs related to altered skin integrity as evidenced by noted stage II pressure injury. goal: PO intake 75% of meals and supplements We will continue current goal. Pt current nutrition is NPO. Last recorded weight is 71.9 kg. Bowel Motility: +BM reported 07/26 Labs Reviewed:Glu 153, Cr 0.5,BUN 21, Alb 2.74,Hct 39.6,Hgb 11.6 Meds Noted:Lovenox, Lasix, NovoLog, Vancomycin. Skin: Stage II pressure ulcer-coccyx. Additional Notes: Patient remains NPO at this time for a bedside swallow evaluation. Pulmonology is following, current with 2 Liter NC. I will continue to monitor for diet order advancement. Monitor intake, wt, labs, skin. Follow up in 3 days.
--- NOTE | 2023-07-28 12:23 | IVDEFINITY ---
Prior to administration of IV Definity the patient was educated on the risks and benefits of the imaging enhancing agent including potential adverse side effects. The patient verbalized understanding. Allergies were verified. No exclusion criteria were identified and at least one of the following inclusion criteria were met: 1) physician request, 2) patient technically difficult to image (per the [place] [employer] guidelines of two or more segments not discernable within the apical view), or 3) questionable left ventricular function. ?
--- NOTE | 2023-07-28 13:16 | PCSTNOTE ---
Please refer to the Bedside Swallow Evaluation in the EMR. Please note, silent aspiration cannot be ruled out at bedside.
--- NOTE | 2023-07-28 15:56 | PCSTNOTE ---
Please refer to the Modified Barium Swallow Evaluation in the EMR.
[2023-07-28 16:01] LABS: Vancomycin Trough 14.9 ug/mL (10.0-20.0)
[2023-07-28 16:37] LABS: Glucose Point of Care 144 mg/dl (65-105)
[2023-07-28 21:25] LABS: Glucose Point of Care 127 mg/dl (65-105)
--- NOTE | 2023-07-28 23:02 | PC.NURSE ---
2030: RN alerted by family that the patient had a tick on his last lateral side. Family had removed the tick but the patient indicated that he was itchy. RN assessed the site. No tick was present but the area was reddened. Bullseye not present. RN obtained order for Benadryl cream. Care continues.
[2023-07-29] VITALS (27 sets, daily range): BP systolic 94–113; BP diastolic 50–70; PULSE 66–92; RESP 12–23; TEMP 36.8–36.9; O2SAT 90–98
[2023-07-29] MEDS: ALTEPLASE 2 MG VIAL (CATHFLO) IV PUSH ×2 (00:22→00:23)
[2023-07-29 01:03] LABS: Glucose Point of Care 139 mg/dl (65-105)
[2023-07-29] MEDS: IPRATROPIUM 0.5 MG/ALBUTEROL SULFATE 2.5 MG AMPUL.NEB 3 ML INHALATION ×4 (01:51→20:07)
[2023-07-29] MEDS: AMPICILLIN SULB 3 GM/NS 100 ML 3 GM/100 ML VIAL IVPB ×4 (02:48→22:31)
--- NOTE | 2023-07-29 02:52 | PC.NURSE ---
0230: RN attempted to remove cathflo from PICC and was unable to. Ports taped off to prevent use. RN will inform the proper providers.
[2023-07-29 04:07] LABS: Basophils Percent Auto 0.3 % (0.2-1.2); Eosinophils Absolute Auto 0.1 K/mm3 (0-0.3); Eosinophils Percent Auto 0.6 % (0-4.4); Hematocrit 38.2 % (42.0-52.0); Immature Granulocyte Absolute 0.04 K/mm3 (0.00-0.031); Immature Granulocyte Percent A 0.5 % (0-0.5); Lymphocytes Percent Auto 7.8 % (18.3-44.2); Mean Corpuscular HGB Conc 28.8 g/dl (32-36); Mean Corpuscular Hemoglobin 26.4 pg (26-34); Mean Corpuscular Volume 91.8 fl (80-100); Mean Platelet Volume 11.3 fl (7.4-10.4); Monocytes Absolute Auto 0.7 K/mm3 (0.1-0.6); Monocytes Percent Auto 9.1 % (2.6-8.5); Neutrophils Absolute Auto 6.3 K/mm3 (1.3-6.7); Neutrophils Percent Auto 81.7 % (45.5-73.1); Platelet Count Result 197 k/mm3 (150-375); Red Blood Count 4.16 M/mm3 (4.6-6.20); Red Cell Distribution Width 17.7 % (11.5-14.5); White Blood Count 7.7 K/mm3 (4.5-10.0)
[2023-07-29 04:31] LABS: Alanine Aminotransferase 11 U/L (6-50); Albumin Level 2.6 g/dL (3.5-5.1); Alkaline Phosphatase 133 U/L (38-126); Aspartate Amino Transferase 24 U/L (17-59); Bilirubin,Total 0.8 mg/dL (0.2-1.3); Blood Urea Nitrogen 18 mg/dL (9-20); Calcium 8.1 mg/dL (8.4-10.2); Carbon Dioxide > 40 mmol/L (22-30); Chloride 96 mmol/L (98-107); Estimated CRCL calculation 80 ml/min; Estimated Glomerular Filt Rate > 60; Glucose 123 mg/dL (65-110); Magnesium 1.8 mg/dL (1.6-2.3); Potassium 3.5 mmol/L (3.4-5.0); Sodium 140 mmol/L (137-145)
[2023-07-29 04:37] LABS: Ovalocytes 1+; Platelet Estimate Adequate (Adequate); Target Cells 1+
[2023-07-29 04:38] LABS: Hypochromasia 1+; Schistocytes None Seen
[2023-07-29 05:30] LABS: Alveolar/Arterial O2 Gradient 24.4 mmHg; Base Excess ABG 15.8 mEq/l (+/-2.0); Carboxyhemoglobin 1.1 % THb (0-2.0); Fractional Inspired Oxygen 28 %; HCO3 ABG 43.4 mEq/l (22.0-26.0); Oxygen Content ABG 15.9 %vol (16.0-22.0); Oxygen Saturation ABG 96.9 % (95.0-100.0); Oxyhemoglobin 95.7 % THb (90.0-100.0); PO2 ABG 93.1 mmHg (80.0-100.0); PO2 FiO2 Ratio Arterial Blood 3.33 %; Reduced Hemoglobin 3.2 %THb (0-5.0); Total Hemoglobin 11.7 g/dL (12.0-18.0); pH ABG 7.413 (7.350-7.450)
[2023-07-29 05:31] LABS: Device NASAL CANNULA; Modified Allen's Test Pass; PCO2 ABG 69.6 mmHg (35.0-45.0); Site Drawn RIGHT RADIAL
[2023-07-29 08:37] LABS: Glucose Point of Care 120 mg/dl (65-105)
[2023-07-29] MEDS: ACETYLCYSTEINE 20% INHAL SOLN 800 MG/4 ML VIAL 200 MG INHALATION ×2 (08:38→20:06)
[2023-07-29] MEDS: METOPROLOL TARTRATE TAB 25 MG, METOPROLOL TARTRATE TAB 12.5 MG 37.5 MG PO ×2 (09:32→22:30)
[2023-07-29] MEDS: AZITHROMYCIN 500 MG/NS 250 ML 500 MG/250 ML BAG 250 MG IVPB (09:39)
[2023-07-29] MEDS: FLUoxetine HCL 10 MG CAPSULE PO (09:44)
[2023-07-29] MEDS: ASPIRIN 325 MG ENTERIC TABLET PO (09:46)
[2023-07-29] MEDS: ENOXAPARIN 40 MG/0.4 ML SYRINGE SUB-Q (09:46)
[2023-07-29] MEDS: ASCORBIC ACID 500 MG TABLET PO (09:46)
[2023-07-29] MEDS: FERROUS SULFATE 325 MG TABLET DR PO (09:46)
[2023-07-29] MEDS: LINACLOTIDE 145 MCG CAPSULE PO (09:46)
[2023-07-29] MEDS: polyethylene glycoL 3350 17 GM POWD.PACK PO (09:51)
[2023-07-29 12:28] LABS: Glucose Point of Care 150 mg/dl (65-105)
--- NOTE | 2023-07-29 13:23 | PM.PNPUL ---
Progress Note: A&P Assessment and Plan (1) Pleural effusion on right: Code(s): J90 - Pleural effusion, not elsewhere classified Status: Chronic (2) Acute on chronic respiratory failure with hypoxia and hypercapnia: Code(s): J96.21 - Acute and chronic respiratory failure with hypoxia; J96.22 - Acute and chronic respiratory failure with hypercapnia Status: Acute Assessment and Plan: This 83-year-old male patient has a complex medical history, including severe pulmonary hypertension as determined by an echocardiogram two years prior, a history of congestive heart failure, atrial fibrillation, coronary artery disease, and type 2 diabetes mellitus. He has had frequent hospital admissions mainly due to congestive heart failure and atrial fibrillation. Chest imaging studies have consistently shown chronic pleural effusions. His arterial blood gases indicate mild hypercapnic and hypoxemic respiratory failure, possibly compounded by metabolic alkalosis from diuretic use. Notably, his chest imaging studies reveal a chronic right pleural effusion associated with a right lower lobe atelectasis and a persistently elevated left diaphragm. The physical examination shows significant signs of diaphragmatic dysfunction, particularly notable abdominal paradox when in a supine position. The patient also has a large ventral hernia, which may be contributing to the diaphragmatic dysfunction, along with a paralyzed left diaphragm. New echocardiogram showed left ventricular systolic dysfunction but no significant elevation of his pulmonary artery systolic pressure. Respiratory status has improved over the last 48 hours. Latest chest x-ray showed pleural effusion on right as before likely smaller size Treatment plan: We will maintain his current pulmonary care regimen, which includes mucolytic agents twice daily, and nebulized short-acting bronchodilators every six hours. I would continue with BiPAP support at night given his chronic respiratory failure. Need to find out whether the patient uses home ventilator. Will continue to follow along with you. (3) Chronic respiratory failure with hypoxia and hypercapnia: Code(s): J96.11 - Chronic respiratory failure with hypoxia; J96.12 - Chronic respiratory failure with hypercapnia Status: Acute (4) Chronic diastolic congestive heart failure: Code(s): I50.32 - Chronic diastolic (congestive) heart failure Status: Acute (5) Congestive heart disease: Code(s): I50.9 - Heart failure, unspecified Status: Acute Subjective Date/time seen: 07/29/23 13:23 Interval history: Patient stated he is doing better today. He did not use BiPAP support last night. Currently on just supplemental oxygen via nasal cannula. He has no significant shortness of breath. No longer has cough or chest congestion. He still on pulmonary toilet with nebulized mucolytic and nebulized short-acting bronchodilators. Patient also indicated that he uses a machine at night which may be home ventilator. He sees a track vehicle repairer elsewhere Exam Narrative: GENERAL APPEARANCE: Well developed, well nourished, alert and cooperative, and appears to be in mild respiratory distress while on supplemental oxygen via nasal cannula SKIN: Inspection of the skin reveals no rashes, ulcerations or petechiae. HEENT: Sclerae anicteric and conjunctivae pink and moist. Extraocular movements were intact and pupils were equal, round. Dry oral mucosa, edentulous NECK: Supple. There was no thyroid enlargement, and no tenderness, or masses were felt. CHEST: Normal AP diameter and normal contour without any kyphoscoliosis. LUNGS: Crackles at bases posteriorly with no wheezing CARDIAC: There was an irregular rate and rhythm without any murmurs, gallops, rubs. ABDOMEN: Moderately large ventral hernia bowel sounds were present. Significant abdominal paradox in supine position LYMPH NODES: No lymphadenopathy was appre
[2023-07-29] MEDS: CENTRAL LINE FLUSH 10 ML IV PUSH (13:39)
[2023-07-29 16:25] LABS: Glucose Point of Care 139 mg/dl (65-105)
[2023-07-29 20:07] LABS: Glucose Point of Care 165 mg/dl (65-105)
[2023-07-30] VITALS (19 sets, daily range): BP systolic 103–121; BP diastolic 55–81; PULSE 63–85; RESP 18–22; TEMP 36.4–36.8; O2SAT 86–100
[2023-07-30] MEDS: CENTRAL LINE FLUSH 10 ML IV PUSH ×2 (00:02→13:17)
[2023-07-30] MEDS: SODIUM CHLORIDE 0.9% IV 250 ML 15 ML IV CONT ×2 (00:16)
[2023-07-30] MEDS: traMADol HCL (*CRX) 50 MG TABLET PO ×3 (00:23→13:19)
[2023-07-30] MEDS: IPRATROPIUM 0.5 MG/ALBUTEROL SULFATE 2.5 MG AMPUL.NEB 3 ML INHALATION ×4 (02:15→20:24)
[2023-07-30] MEDS: AMPICILLIN SULB 3 GM/NS 100 ML 3 GM/100 ML VIAL IVPB ×4 (02:40→20:54)
[2023-07-30 05:00] LABS: Basophils Percent Auto 0.4 % (0.2-1.2); Eosinophils Absolute Auto 0.1 K/mm3 (0-0.3); Eosinophils Percent Auto 2.5 % (0-4.4); Hematocrit 38.4 % (42.0-52.0); Hemoglobin 10.9 g/dL (14.0-18.0); Immature Granulocyte Absolute 0.03 K/mm3 (0.00-0.031); Immature Granulocyte Percent A 0.6 % (0-0.5); Lymphocytes Absolute Auto 0.67 K/mm3 (0.9-3.2); Lymphocytes Percent Auto 14.1 % (18.3-44.2); Mean Corpuscular HGB Conc 28.4 g/dl (32-36); Mean Corpuscular Hemoglobin 26.3 pg (26-34); Mean Corpuscular Volume 92.5 fl (80-100); Mean Platelet Volume 11.7 fl (7.4-10.4); Monocytes Absolute Auto 0.5 K/mm3 (0.1-0.6); Monocytes Percent Auto 10.1 % (2.6-8.5); Neutrophils Absolute Auto 3.4 K/mm3 (1.3-6.7); Neutrophils Percent Auto 72.3 % (45.5-73.1); Platelet Count Result 172 k/mm3 (150-375); Red Blood Count 4.15 M/mm3 (4.6-6.20); Red Cell Distribution Width 17.7 % (11.5-14.5); White Blood Count 4.8 K/mm3 (4.5-10.0)
[2023-07-30 05:20] LABS: Alanine Aminotransferase 11 U/L (6-50); Albumin Level 2.5 g/dL (3.5-5.1); Alkaline Phosphatase 130 U/L (38-126); Aspartate Amino Transferase 24 U/L (17-59); Bilirubin,Total 0.6 mg/dL (0.2-1.3); Blood Urea Nitrogen 22 mg/dL (9-20); Calcium 8.1 mg/dL (8.4-10.2); Carbon Dioxide > 40 mmol/L (22-30); Chloride 98 mmol/L (98-107); Estimated CRCL calculation 99 ml/min; Estimated Glomerular Filt Rate > 60; Glucose 122 mg/dL (65-110); Magnesium 1.8 mg/dL (1.6-2.3); Potassium 3.3 mmol/L (3.4-5.0); Sodium 140 mmol/L (137-145)
[2023-07-30 05:32] LABS: Anisocytosis 1+; Hypochromasia 1+; Platelet Estimate Adequate (Adequate)
[2023-07-30 05:33] LABS: Ovalocytes 1+; Schistocytes Rare
[2023-07-30 05:41] LABS: Alveolar/Arterial O2 Gradient 16.8 mmHg; Base Excess ABG 15.2 mEq/l (+/-2.0); Carboxyhemoglobin 0.6 % THb (0-2.0); Fractional Inspired Oxygen 28 %; Methemoglobin ABG 0.3 %THb (0-1.5); Oxygen Content ABG 15.7 %vol (16.0-22.0); Oxygen Saturation ABG 97.9 % (95.0-100.0); PO2 ABG 107.7 mmHg (80.0-100.0); PO2 FiO2 Ratio Arterial Blood 3.85 %; Reduced Hemoglobin 2.1 %THb (0-5.0); Total Hemoglobin 11.4 g/dL (12.0-18.0); pH ABG 7.437 (7.350-7.450)
[2023-07-30 05:44] LABS: Device NASAL CANNULA; Modified Allen's Test Pass; PCO2 ABG 63.7 mmHg (35.0-45.0); Site Drawn RIGHT RADIAL
[2023-07-30] MEDS: ACETYLCYSTEINE 20% INHAL SOLN 800 MG/4 ML VIAL 200 MG INHALATION ×2 (07:30→20:25)
[2023-07-30 08:18] LABS: Glucose Point of Care 143 mg/dl (65-105)
--- NOTE | 2023-07-30 08:39 | PM.PNPUL ---
Progress Note: A&P Assessment and Plan (1) Pleural effusion on right: Code(s): J90 - Pleural effusion, not elsewhere classified Status: Chronic (2) Acute on chronic respiratory failure with hypoxia and hypercapnia: Code(s): J96.21 - Acute and chronic respiratory failure with hypoxia; J96.22 - Acute and chronic respiratory failure with hypercapnia Status: Acute Assessment and Plan: This 83-year-old male patient has a complex medical history, including severe pulmonary hypertension as determined by an echocardiogram two years prior, a history of congestive heart failure, atrial fibrillation, coronary artery disease, and type 2 diabetes mellitus. He has had frequent hospital admissions mainly due to congestive heart failure and atrial fibrillation. Chest imaging studies have consistently shown chronic pleural effusions. His arterial blood gases indicate mild hypercapnic and hypoxemic respiratory failure, possibly compounded by metabolic alkalosis from diuretic use. Notably, his chest imaging studies reveal a chronic right pleural effusion associated with a right lower lobe atelectasis and a persistently elevated left diaphragm. The physical examination shows significant signs of diaphragmatic dysfunction, particularly notable abdominal paradox when in a supine position. The patient also has a large ventral hernia, which may be contributing to the diaphragmatic dysfunction, along with a paralyzed left diaphragm. New echocardiogram showed left ventricular systolic dysfunction but no significant elevation of his pulmonary artery systolic pressure. The patient's respiratory condition has shown improvement in the past 48 hours. The most recent chest x-ray reveals a likely reduced size of the pre-existing pleural effusion on the right side. The necessity of long-term home ventilatory support was discussed with the patient, considering his hypercapnic respiratory failure and frequent hospital admissions. However, the patient expressed his unwillingness to return to using home ventilatory support. Previously, his physicians in [place] had initiated home ventilator treatment, but the patient found it challenging to adapt to and discontinued its use entirely after a four-month period. Treatment plan: We will maintain his current pulmonary care regimen, which includes mucolytic agents twice daily, and nebulized short-acting bronchodilators every six hours. I would continue with BiPAP support at night given his chronic respiratory failure. Will proceed with a sniff test/chest fluoroscopy to exclude left hemidiaphragm paralysis. The case was discussed with the hospitalist. (3) Chronic respiratory failure with hypoxia and hypercapnia: Code(s): J96.11 - Chronic respiratory failure with hypoxia; J96.12 - Chronic respiratory failure with hypercapnia Status: Acute (4) Chronic diastolic congestive heart failure: Code(s): I50.32 - Chronic diastolic (congestive) heart failure Status: Acute (5) Congestive heart disease: Code(s): I50.9 - Heart failure, unspecified Status: Acute Subjective Date/time seen: 07/30/23 08:39 Interval history: Patient doing better. Used BiPAP support last night for few hours only. Coughing chest congestion significantly less. No other respiratory symptoms afebrile Review of Systems Review of Systems: All systems reviewed & are unremarkable except as noted in HPI and below (HPI and below) Exam Narrative: GENERAL APPEARANCE: Well developed, well nourished, alert and cooperative, and appears to be in mild respiratory distress while on supplemental oxygen via nasal cannula SKIN: Inspection of the skin reveals no rashes, ulcerations or petechiae. HEENT: Sclerae anicteric and conjunctivae pink and moist. Extraocular movements were intact and pupils were equal, round. Dry oral mucosa, edentulous NECK: Supple. There was no thyroid enlargement, and no tenderness, or mass
[2023-07-30] MEDS: AZITHROMYCIN 500 MG/NS 250 ML 500 MG/250 ML BAG 250 MG IVPB (09:31)
[2023-07-30] MEDS: ACETAMINOPHEN 325 MG TABLET 650 MG PO (09:37)
[2023-07-30] MEDS: ASCORBIC ACID 500 MG TABLET PO (09:37)
[2023-07-30] MEDS: MULTIVITAMINS /C LUTEIN (CENTRUM SILVER) TABLET *BKC 1 TAB PO (09:37)
[2023-07-30] MEDS: FERROUS SULFATE 325 MG TABLET DR PO (09:37)
[2023-07-30] MEDS: ASPIRIN 325 MG ENTERIC TABLET PO (09:37)
[2023-07-30] MEDS: METOPROLOL TARTRATE TAB 25 MG, METOPROLOL TARTRATE TAB 12.5 MG 37.5 MG PO ×2 (09:38→20:53)
[2023-07-30] MEDS: ENOXAPARIN 40 MG/0.4 ML SYRINGE SUB-Q (09:39)
[2023-07-30] MEDS: FLUoxetine HCL 10 MG CAPSULE PO (09:39)
[2023-07-30] MEDS: LINACLOTIDE 145 MCG CAPSULE PO (09:39)
[2023-07-30] MEDS: polyethylene glycoL 3350 17 GM POWD.PACK PO (09:46)
--- NOTE | 2023-07-30 11:45 | PC.NURSE ---
This patient, Zack Orellnaa, was received from ICU on 07/30/23 at 1145. Patient/family oriented to unit policies and routines
--- NOTE | 2023-07-30 11:45 | PC.NURSE ---
This patient, Zack Orellana, was transferred to [[facility]] on 07/30/23 at 1145. Personal belongings sent with patient. Report given to [Betito GRIMES]. Appropriate documentation sent with patient.
[2023-07-30 12:07] LABS: Glucose Point of Care 136 mg/dl (65-105)
[2023-07-30] MEDS: POTASSIUM CHLORIDE 20 MEQ PACKET (FOR LIQUID) FEED TUBE (12:07)
[2023-07-30 16:52] LABS: Glucose Point of Care 122 mg/dl (65-105)
--- NOTE | 2023-07-30 18:00 | PM.IMPN ---
Progress Note: A&P Assessment and Plan (1) Acute on chronic respiratory failure with hypoxia and hypercapnia: Code(s): J96.21 - Acute and chronic respiratory failure with hypoxia; J96.22 - Acute and chronic respiratory failure with hypercapnia Status: Acute (2) Right lower lobe pneumonia: Code(s): J18.9 - Pneumonia, unspecified organism Status: Acute (3) Pleural effusion on right: Code(s): J90 - Pleural effusion, not elsewhere classified Status: Chronic Plan Patient is stable after being transferred out of the ICU. He is at his baseline 3 L nasal cannula. Continue BiPAP support at night. Will need to determine if he needs ventilator support at home although this is likely. Continue pulmonary toilet per the lace sewer. As for his aspiration pneumonia continue Unasyn and azithromycin. If he continues to be stable will deescalate tomorrow. Vancomycin has already been discontinued. Unable to determine why the patient is not on anticoagulation or antiplatelet for atrial fibrillation cannot find reason previously documented note. Will have the [facility] further for this and call the family as well. They did not answer on 1 attempt. May restart his diuretic home dose tomorrow. Does appear euvolemic at this time Full code. Lovenox for DVT prophylaxis. Speech therapy consulted. Those recommendations. Subjective Date/time seen: 07/30/23 18:00 Interval history: No acute overnight events. The patient denies any complaints. Reports his breathing is fine he feels at his baseline. Review of Systems Review of Systems: All systems reviewed & are unremarkable except as noted in HPI and below (Subjective) Exam Const: General: comfortable and no acute distress Eyes: Pupils: Equal, round and reactive pupils present Resp: Effort & Inspection: normal respiratory effort Auscultation: crackles (Mild crackles at the bases. Diminished at the right lower field) Cardio: Rate: regular rate Rhythm: abnormal rhythm GI: GI Palp: Yes Soft to palpation and No Tenderness to palpation present (GI) Other: Ventral hernia Extrem: General: no edema Objective Data Vital Signs Vital Signs: Vital Signs - 24 hr 07/29/23 19:52 07/29/23 20:07 07/29/23 20:07 Temperature 98.4 F Pulse Rate 81 70 Respiratory Rate 15 15 Blood Pressure 94/70 L Pulse Oximetry 92 98 Oxygen Delivery Nasal Cannula Oxygen Flow Rate 2 07/29/23 20:16 07/29/23 22:30 07/29/23 23:20 Temperature Pulse Rate 67 75 66 Respiratory Rate 18 23 H Blood Pressure Pulse Oximetry 96 Oxygen Delivery BiPAP Oxygen Flow Rate 07/30/23 00:00 07/29/23 20:00 07/30/23 00:00 Temperature 98.2 F Pulse Rate 70 73 69 Respiratory Rate 19 Blood Pressure 104/56 L Pulse Oximetry 95 Oxygen Delivery Oxygen Flow Rate 07/29/23 20:00 07/30/23 02:15 07/30/23 02:31 Temperature Pulse Rate 66 66 Respiratory Rate 18 18 Blood Pressure Pulse Oximetry 95 Oxygen Delivery BiPAP Oxygen Flow Rate 2 07/30/23 04:00 07/30/23 07:10 07/30/23 07:10 Temperature Pulse Rate 79 72 72 Respiratory Rate 18 18 Blood Pressure Pulse Oximetry 93 Oxygen Delivery Nasal Cannula Oxygen Flow Rate 2 07/30/23 07:20 07/30/23 09:38 07/30/23 08:00 Temperature 97.6 F Pulse Rate 70 72 71 Respiratory Rate 18 22 H Blood Pressure 121/55 L Pulse Oximetry 97 Oxygen Delivery Oxygen Flow Rate 07/30/23 08:00 07/30/23 08:00 07/30/23 12:00 Temperature Pulse Rate 72 73 Respiratory Rate Blood Pressure Pulse Oximetry 97 Oxygen Delivery Nasal Cannula Oxygen Flow Rate 2 07/30/23 13:05 07/30/23 13:15 07/30/23 16:00 Temperature Pulse Rate 67 68 69 Respiratory Rate 18 18 Blood Pressure Pulse Oximetry Oxygen Delivery Oxygen Flow Rate Intake/Output Intake/Output: Intake & Output 07/27/23 07/28/23 07/29/23 07/30/23 23:59 23:59 23:59
[2023-07-30 22:13] LABS: Glucose Point of Care 125 mg/dl (65-105)
[2023-07-31] VITALS (15 sets, daily range): BP systolic 102–110; BP diastolic 53–77; PULSE 60–101; RESP 18–20; TEMP 36.4; O2SAT 94–95
[2023-07-31] MEDS: AMPICILLIN SULB 3 GM/NS 100 ML 3 GM/100 ML VIAL IVPB ×2 (01:50→09:04)
[2023-07-31] MEDS: traMADol HCL (*CRX) 50 MG TABLET PO ×2 (01:50→12:18)
[2023-07-31] MEDS: IPRATROPIUM 0.5 MG/ALBUTEROL SULFATE 2.5 MG AMPUL.NEB 3 ML INHALATION ×3 (01:55→13:49)
[2023-07-31 06:41] LABS: Basophils Percent Auto 0.4 % (0.2-1.2); Eosinophils Absolute Auto 0.2 K/mm3 (0-0.3); Eosinophils Percent Auto 3.8 % (0-4.4); Hematocrit 36.4 % (42.0-52.0); Hemoglobin 10.6 g/dL (14.0-18.0); Immature Granulocyte Absolute 0.03 K/mm3 (0.00-0.031); Immature Granulocyte Percent A 0.6 % (0-0.5); Lymphocytes Absolute Auto 0.63 K/mm3 (0.9-3.2); Mean Corpuscular HGB Conc 29.1 g/dl (32-36); Mean Corpuscular Hemoglobin 26.5 pg (26-34); Mean Platelet Volume 11.1 fl (7.4-10.4); Monocytes Absolute Auto 0.5 K/mm3 (0.1-0.6); Monocytes Percent Auto 8.9 % (2.6-8.5); Neutrophils Absolute Auto 3.9 K/mm3 (1.3-6.7); Neutrophils Percent Auto 74.3 % (45.5-73.1); Platelet Count Result 172 k/mm3 (150-375); Red Cell Distribution Width 17.5 % (11.5-14.5); White Blood Count 5.3 K/mm3 (4.5-10.0)
[2023-07-31 07:02] LABS: Alanine Aminotransferase 10 U/L (6-50); Albumin Level 2.3 g/dL (3.5-5.1); Alkaline Phosphatase 123 U/L (38-126); Aspartate Amino Transferase 20 U/L (17-59); Bilirubin,Total 0.3 mg/dL (0.2-1.3); Blood Urea Nitrogen 25 mg/dL (9-20); Calcium 8.3 mg/dL (8.4-10.2); Carbon Dioxide > 40 mmol/L (22-30); Chloride 97 mmol/L (98-107); Estimated CRCL calculation 80 ml/min; Estimated Glomerular Filt Rate > 60; Glucose 117 mg/dL (65-110); Magnesium 1.6 mg/dL (1.6-2.3); Potassium 3.2 mmol/L (3.4-5.0); Sodium 142 mmol/L (137-145)
[2023-07-31 07:23] LABS: Glucose Point of Care 148 mg/dl (65-105)
[2023-07-31 08:02] LABS: Anisocytosis 1+; Hypochromasia 1+; Ovalocytes 1+; Platelet Estimate Adequate (Adequate); Schistocytes None Seen
[2023-07-31] MEDS: ACETYLCYSTEINE 20% INHAL SOLN 800 MG/4 ML VIAL 200 MG INHALATION (08:35)
[2023-07-31] MEDS: FLUoxetine HCL 10 MG CAPSULE PO (09:03)
[2023-07-31] MEDS: FERROUS SULFATE 325 MG TABLET DR PO (09:03)
[2023-07-31] MEDS: AZITHROMYCIN 500 MG/NS 250 ML 500 MG/250 ML BAG 250 MG IVPB (09:03)
[2023-07-31] MEDS: ASCORBIC ACID 500 MG TABLET PO (09:03)
[2023-07-31] MEDS: MULTIVITAMINS /C LUTEIN (CENTRUM SILVER) TABLET *BKC 1 TAB PO (09:03)
[2023-07-31] MEDS: ASPIRIN 325 MG ENTERIC TABLET PO (09:03)
[2023-07-31] MEDS: LINACLOTIDE 145 MCG CAPSULE PO (09:03)
[2023-07-31] MEDS: ENOXAPARIN 40 MG/0.4 ML SYRINGE SUB-Q (09:04)
[2023-07-31] MEDS: METOPROLOL TARTRATE TAB 25 MG, METOPROLOL TARTRATE TAB 12.5 MG 37.5 MG PO (09:09)
--- NOTE | 2023-07-31 09:56 | PM.DS ---
DS: Admitting Diagnosis Discharge Date July 31, 2023 Admitting Diagnosis Acute on chronic respiratory failure DS: Discharge Diagnosis Discharge Diagnosis (1) Acute on chronic respiratory failure with hypoxia and hypercapnia: Code(s): J96.21 - Acute and chronic respiratory failure with hypoxia; J96.22 - Acute and chronic respiratory failure with hypercapnia Status: Acute (2) Right lower lobe pneumonia: Code(s): J18.9 - Pneumonia, unspecified organism Status: Acute (3) Pleural effusion on right: Code(s): J90 - Pleural effusion, not elsewhere classified Status: Chronic (4) Constipation: Code(s): K59.00 - Constipation, unspecified Status: Acute (5) Chronic pain syndrome: Code(s): G89.4 - Chronic pain syndrome Status: Chronic DS: Summary Hospital Course Hospital Course: This is a pleasant 83-year-old male with a history of ear pulmonary hypertension, CAD, CHF, chronic respiratory failure with hypoxia and hypercarbia on 3 L nasal cannula and noncompliant with ventilatory support, ventral hernia, chronic pleural effusion, elevated left diaphragm, paroxysmal atrial fibrillation not previously on outpatient anticoagulation, [id number] diabetes mellitus, chronic anemia, chronic pain syndrome status post pain pump insertion, history of chronic constipation and fecal impaction. The patient presents with altered mental status from his usual group home living [facility]. His altered mental status did resolve and was felt due to a multitude of issues including acute on chronic respiratory failure, polypharmacy, aspiration pneumonia. The acute on chronic respiratory itself also thought to be due to a multitude of issues including severe pulmonary hypertension, effusion, aspiration, CHF, atelectasis, diaphragm elevation. His quad viral screen was negative. Again his altered mental status resolved and he was placed back on his usual 3 L of nasal cannula support. The patient refuses use of noninvasive positive pressure ventilation in spite of the pulmonology dilatation and counseling about the risk of deterioration if he did not use this. He received bronchodilators and Mucomyst nebulizer along with vancomycin azithromycin and Unasyn. His Lyrica was stopped. He is to follow-up with his pain management doctor on his pain pump and multiple other pain medications. Of note the patient has not been on anticoagulation/antiplatelet for his atrial fibrillation. He preferred to take aspirin supposed to full on anticoagulation. That was started. A sniff test was performed which was negative. Due to a poor appetite his Lasix was decreased from 40 mg b.i.d. to 40 mg q.day. During the admission the patient was a modified code. He did not want CPR but was amenable to intubation. He is stable for discharge back to his usual group home living at [facility]. Time Spent with Patient Time attestation: Total time spent providing and/or coordinating discharge services: Exam Const: General: comfortable and no acute distress Eyes: Pupils: Equal, round and reactive pupils present Neck: Neck: supple Resp: Effort & Inspection: normal respiratory effort Other: Diminished on right base Cardio: Rate: regular rate Rhythm: abnormal rhythm GI: GI Palp: Yes Soft to palpation and No Tenderness to palpation present (GI) Extrem: General: no edema DS: Data Data Completed and Pending Labs on day of discharge: Labs from last 24 hours 07/31/23 07/31/23 07/30/23 07:20 06:07 22:11 WBC 5.3 RBC 4.00 L Hgb 10.6 L Hct 36.4 L MCV 91.0 MCH 26.5 MCHC 29.1 L RDW 17.5 H Plt Count 172 MPV 11.1 H Immature Gran % (Auto) 0.6 H Neut % (Auto) 74.3 H Lymph % (Auto) 12.0 L Dolores % (Auto) 8.9 H Eos % (Auto) 3.8 Baso % (Auto) 0.4 Lymph # (Auto) 0.63 L Dolores # (Auto) 0.5 Eos # (Auto) 0.2 Baso # (Auto) 0.0 Abs Immat Gran (auto) 0.03 A
--- NOTE | 2023-07-31 10:39 | PM.PNPUL ---
Progress Note: A&P Assessment and Plan (1) Pleural effusion on right: Code(s): J90 - Pleural effusion, not elsewhere classified Status: Chronic (2) Acute on chronic respiratory failure with hypoxia and hypercapnia: Code(s): J96.21 - Acute and chronic respiratory failure with hypoxia; J96.22 - Acute and chronic respiratory failure with hypercapnia Status: Acute Assessment and Plan: This 83-year-old male patient has a complex medical history, including severe pulmonary hypertension as determined by an echocardiogram two years prior, a history of congestive heart failure, atrial fibrillation, coronary artery disease, and type 2 diabetes mellitus. He has had frequent hospital admissions mainly due to congestive heart failure and atrial fibrillation. Chest imaging studies have consistently shown chronic pleural effusions. His arterial blood gases indicate mild hypercapnic and hypoxemic respiratory failure, possibly compounded by metabolic alkalosis from diuretic use. Notably, his chest imaging studies reveal a chronic right pleural effusion associated with a right lower lobe atelectasis and a persistently elevated left diaphragm. The physical examination shows significant signs of diaphragmatic dysfunction, particularly notable abdominal paradox when in a supine position. The patient also has a large ventral hernia, which may be contributing to the diaphragmatic dysfunction, along with a paralyzed left diaphragm. New echocardiogram showed left ventricular systolic dysfunction but no significant elevation of his pulmonary artery systolic pressure. The patient's respiratory condition has shown improvement in the past 48 hours. The most recent chest x-ray reveals a likely reduced size of the pre-existing pleural effusion on the right side. The necessity of long-term home ventilatory support was discussed with the patient, considering his hypercapnic respiratory failure and frequent hospital admissions. However, the patient expressed his unwillingness to return to using home ventilatory support. Previously, his physicians in [place] had initiated home ventilator treatment, but the patient found it challenging to adapt to and discontinued its use entirely after a four-month period. Okay to discharge patient home. The patient will continue with his current supplemental oxygen at 3 liters/minute, nebulized short-acting bronchodilators q.i.d. p.r.n.. The patient will need to see his stage manager within the next 2 weeks. Will sign off please call with any questions. (3) Chronic respiratory failure with hypoxia and hypercapnia: Code(s): J96.11 - Chronic respiratory failure with hypoxia; J96.12 - Chronic respiratory failure with hypercapnia Status: Acute (4) Chronic diastolic congestive heart failure: Code(s): I50.32 - Chronic diastolic (congestive) heart failure Status: Acute (5) Congestive heart disease: Code(s): I50.9 - Heart failure, unspecified Status: Acute Subjective Date/time seen: 07/31/23 10:39 Interval history: Patient doing better. Remains on room air. He has no new respiratory symptoms. Review of Systems Review of Systems: All systems reviewed & are unremarkable except as noted in HPI and below (HPI and below) Exam Narrative: GENERAL APPEARANCE: Well developed, well nourished, alert and cooperative, and appears to be in mild respiratory distress while on supplemental oxygen via nasal cannula SKIN: Inspection of the skin reveals no rashes, ulcerations or petechiae. HEENT: Sclerae anicteric and conjunctivae pink and moist. Extraocular movements were intact and pupils were equal, round. Dry oral mucosa, edentulous NECK: Supple. There was no thyroid enlargement, and no tenderness, or masses were felt. CHEST: Normal AP diameter and normal contour without any kyphoscoliosis. LUNGS: Crackles at bases posteriorly with no wheezing CARDIAC: There was an irregular rate
[2023-07-31] MEDS: POTASSIUM CHLORIDE 20 MEQ PACKET (FOR LIQUID) PO (11:14)
[2023-07-31] MEDS: MAGNESIUM SULF 1 GM/D5W 100 ML 1 GM/100 ML BAG IVPB (11:20)
[2023-07-31 11:38] LABS: Glucose Point of Care 133 mg/dl (65-105)
--- NOTE | 2023-07-31 14:56 | PC.NURSE ---
RN called to give report at [facility]. RN was redirected to sales receptionist desk twice. Nursing healy did not answer.
[2023-07-31 16:41] LABS: Glucose Point of Care 110 mg/dl (65-105)
--- NOTE | 2023-07-31 17:34 | PCNEURO ---
RN called to give report to nurse at [facility]. Spoke with Oral and gave her report.
== END 2023-07-31 17:35 | DRG 177 ==
LOC: ANHED 07-27 01:36 → ANHIMU 07-27 02:28 → ANHICU 07-27 13:35 → ANH3MEDSUR 07-30 11:47
PROVIDERS: Internal Medicine; Nurse Practitioner; Admitting Provider Internal Medicine; Emergency Provider Emergency Medicine; PCP Internal Medicine; Visit Provider General Practice
DX: J69.0 Pneumonitis due to inhalation of food and vomit (principal); J96.21 Acute and chronic respiratory failure with hypoxia; J96.22 Acute and chronic respiratory failure with hypercapnia; I50.32 Chronic diastolic (congestive) heart failure; J44.0 Chronic obstructive pulmonary disease with (acute) lower respiratory infection; J98.11 Atelectasis; I11.0 Hypertensive heart disease with heart failure; G89.4 Chronic pain syndrome; G47.33 Obstructive sleep apnea (adult) (pediatric); I48.0 Paroxysmal atrial fibrillation; K59.00 Constipation, unspecified; I25.10 Atherosclerotic heart disease of native coronary artery without angina pectoris; I27.20 Pulmonary hypertension, unspecified; F03.90 Unspecified dementia, unspecified severity, without behavioral disturbance, psychotic disturbance, mood disturbance, and anxiety; K21.9 Gastro-esophageal reflux disease without esophagitis; K42.9 Umbilical hernia without obstruction or gangrene; E11.40 Type 2 diabetes mellitus with diabetic neuropathy, unspecified; Z20.822 Contact with and (suspected) exposure to COVID-19; Z79.891 Long term (current) use of opiate analgesic; Z99.81 Dependence on supplemental oxygen; Z87.891 Personal history of nicotine dependence; Z79.899 Other long term (current) drug therapy; Z86.73 Personal history of transient ischemic attack (TIA), and cerebral infarction without residual deficits; I25.2 Old myocardial infarction
CPT/HCPCS: 36415; 36569; 36600; 70450; 71045; 71275; 74174; 76000; 80053; 80069; 80202; 80307; 81003; 82375; 82805; 82948; 83036; 83050; 83605; 83690; 83735; 83880; 84100; 84484; 85025; 85610; 85730; 87040; 87637; 87641; 92526; 92610; 92611; 93005; 93306; 94002; 94003; 94640; 94669; 96365; 96366; 99291; A9270; J0295; J0456; J0692; J1650; J1940; J2997; J3370; J3475; J3480; J7040; J7050; Q9957; Q9967

== ENCOUNTER 2023-08-05 11:38 | Inpatient (IN) | payer MEDICARE, MEDICAID, SELFPAY ==
[2023-08-05] VITALS (7 sets, daily range): BP systolic 94–104; BP diastolic 56–75; PULSE 53–85; RESP 16–20; TEMP 36.2–36.7; O2SAT 90–97
--- NOTE | ~2023-08-05 | CT_ITS ---
EXAMINATION: CT chest abdomen pelvis w con DATE: 08/05/2023 15:51 INDICATION: Hypotension. Confusion. Altered mental state. TECHNIQUE: Computed tomography (CT) of the chest, abdomen, and pelvis was performed with 100 CC Omnip aque 350 intravenous contrast. Automated exposure control and iterative reconstruction technique were employed. Exam dose: 990.59 mGy-cm total exam DLP. COMPARISON: 07/26/2023 CTA chest abdomen pelvis FINDINGS: CHEST CT: There is cardiomegaly. There is extensive coronary artery calcification. No pericardial effusion. Thoracic aortic and great vessel calcifications. Mild thoracic aortic aneurysm, the ascending aorta m easuring up to 4 cm diameter, mid aortic arch 3.2 cm diameter. No thoracic aortic dissection. No pericardial effusion. No hilar or mediastinal mass lesion or lymphadenopathy is detected. There is moderate right pleural effusion with prominent right lower lobe compressive atelectasis and small left pleural effusion. Prominent right lower lobe and to lesser extent left lower lobe atelectasis. There are emphysematous changes in lungs. ABDOMEN/PELVIS CT: Approximately 5.5 x 9.7 mm stone or polyp along the dependent posterior gallbladder wall. No bile kassie t or pancreatic duct dilatation. No hepatic, splenic, pancreatic or adrenal space-occupying mass lesion. Occasional renal cysts, the largest an exophytic approximately 3.9 cm cyst situated along the lateral upper pole left kidney. No urinary tract calculus or hydroureteronephrosis. There is a Dudley catheter within the completely evacuated urinary bladder. The bladder wall appears d iffusely thickened, nonspecific, possibly due to lateral obstruction versus infection. There is extensive atherosclerotic calcification of the abdominal aorta which measures upper limits o f normal size. No intraperitoneal or retroperitoneal or pelvic mass lesion or adenopathy or ascites i s noted. Large rectal stool ball measuring up to 7.9 cm anteroposterior x 8 cm transverse dimension. There is a prominent amount of fecal material throughout the colon. The patient is noted to be incontinent of stool. There is some fluid levels in the right colon and transverse colon. No bowel wall thickening, pneumatosis or intraperitoneal free air is evident. There is a large widemouth ventral abdominal wall hernia containing nonobstructed colon and small bowel. There is a suture line of the small bowel wit hin the hernia sac. Severe osteoarthritic changes at both glenohumeral joints. Probable hemangioma of T12 vertebral body. Degenerative changes of the cervical, thoracic spine. Oste openia. IMPRESSION: Cardiomegaly Moderate right and mild left pleural effusion Prominent right lower lobe and to a lesser extent left lower lobe atelectasis Emphysema Stone or polyp at posterior dependent gallbladder wall Bilateral renal cysts Bladder wall thickening, nonspecific; cystitis is not excluded. Dudley catheter in urinary bladder. Rectal fecal impaction, probably atrophic of material in the colon Large widemouth ventral abdominal wall hernia containing colon and small bowel Reviewed, dictated and finalized at [facility]. Reviewed, dictated and finalized at [facility].
--- NOTE | ~2023-08-05 | CT_ITS ---
EXAMINATION: CT brain wo con DATE: 08/05/2023 15:51 INDICATION: Altered mental status TECHNIQUE: Computed tomography (CT) of the head was performed without intravenous contrast. Sagittal and coronal reconstructions were performed. The mA was adjusted according to patient size. Iterative reconstruction technique was employed. The dose-length product was 681.00 mGy-cm. COMPARISON: head CT dated 07/26/2023 FINDINGS: Small region of encephalomalacia in the right occipital lobe consistent with sequela of old infarct. No acute intracranial hemorrhage, acute infarction or abnormal extra axial fluid collection. There is moderate scattered white matter hypoattenuation consistent with chronic small vessel ischemic diseas e. Symmetric prominence of the sulci and subarachnoid spaces overlying the convexities consistent wit h moderate age-appropriate diffuse cerebral volume loss. Ventricles are normal and symmetric. Unchang ed 1.6 x 1.2 x 1.1 cm extra-axial partially calcified mass along the right side of the anterior falx consistent with a meningioma. Changes of bilateral intraocular lens replacement. Small bilateral mas toid effusions. Mucosal thickening in the right maxillary and left sphenoid sinuses, the former with central calcification and both sinuses with thickened sclerotic benz consistent with sequela of camelid fiber sorter pamela sinusitis. IMPRESSION: 1. 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 No acute intracranial process. 2. Unchanged 1.6 x 1.2 x 1.1 cm anterior right parafalcine meningioma. 3. Age-related changes including moderate diffuse volume loss and moderate scattered white matter hyp oattenuation consistent with chronic small vessel ischemic disease. 4. Chronic sinusitis. Reviewed, dictated and finalized at location [facility]. IMPRESSION: 1. 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 No acute intracranial pr ocess. 2. Unchanged 1.6 x 1.2 x 1.1 cm anterior right parafalcine meningioma. 3. Age-related changes including moderate diffuse volume loss and moderate scat tered white matter hypoattenuation consistent with chronic small vessel ischemi c disease. 4. Chronic sinusitis.
--- NOTE | 2023-08-05 12:48 | ECG_ITS ---
SEE SCANNED COPY FOR CONFIRMED REPORT MTDD
--- NOTE | 2023-08-05 13:04 | ED.GENADULT ---
HPI - General Adult General Chief complaint: Altered Mental Status Stated complaint: AMS Time Seen by Provider: 08/05/23 12:05 History of Present Illness HPI narrative: Patient is very difficult to understand as he does not have dentures, mumbles and speaks very quickly. This is an 83-year-old male with a very complicated medical history presenting for altered mental status. My exam the patient is A&O times 2-3. His only complaint is pain to his buttocks where he has a sacral decubitus. Patient denies any other complaints. Per EMS the patient was slightly confused today at the care home, he is making inappropriate comments about his and had a blood pressure in the 90s Related Data Home Medications Medication Instructions Recorded Confirmed sennosides 8.6 mg-docusate sodium 1 tab-cap PO DAILY PRN Constipation 06/08/22 07/27/23 50 mg capsule acetaminophen 650 mg tablet 325 mg PO Q6H PRN Pain 06/01/23 07/27/23 ipratropium 0.5 mg-albuterol 3 mg 3 ml inhalation QID PRN Shortness 06/01/23 07/27/23 (2.5 mg base)/3 mL nebulization Of Breath Or Wheezing soln metoprolol tartrate 37.5 mg tablet 37.5 mg PO BID 06/01/23 07/27/23 miconazole nitrate 2 % topical 1 applic topical BID 06/02/23 07/27/23 powder fluoxetine 10 mg capsule 10 mg PO DAILY 07/11/23 07/27/23 tramadol 50 mg tablet 50 mg PO QID PRN Pain 07/11/23 07/27/23 Zinc-50 50 mg PO DAILY 07/27/23 07/27/23 ascorbic acid (vitamin C) 500 mg 500 mg PO DAILY 07/27/23 07/27/23 tablet bisacodyl 10 mg rectal suppository 10 mg RECTAL DAILY PRN Constipation 07/27/23 07/27/23 guaifenesin 600 mg tablet, 600 mg PO Q12H PRN Congestion 07/27/23 07/27/23 extended release 12 hr insulin lispro 200 unit/mL (3 mL) 1 sliding scale dose subcut 07/27/23 07/27/23 subcutaneous pen USEASDIRECTD ipratropium 0.5 mg-albuterol 3 mg 3 ml inhalation Q4H 07/27/23 07/27/23 (2.5 mg base)/3 mL nebulization soln linaclotide 145 mcg capsule 145 mcg PO DAILY 07/27/23 07/27/23 (Linzess) loperamide 2 mg capsule 2 mg PO Q4H PRN Diarrhea 07/27/23 07/27/23 magnesium citrate (Citroma oral 300 ml PO DAILY PRN Constipation 07/27/23 07/27/23 solution) magnesium hydroxide 400 mg/5 mL 5 ml PO HS PRN Constipation 07/27/23 07/27/23 oral suspension (Milk of Magnesia) mirtazapine 7.5 mg tablet 7.5 mg PO HS 07/27/23 07/27/23 multivit with minerals-iron 18 1 tablet PO DAILY 07/27/23 07/27/23 mg-folic ac 400 mcg-vit K 25 mcg tablet (Adults Multivitamin) ondansetron HCl 4 mg tablet 4 mg PO Q6H PRN nausea and 07/27/23 07/27/23 vomitting pregabalin 75 mg capsule (Lyrica) 75 mg PO QID 07/27/23 07/27/23 Allergies Allergy/AdvReac Type Severity Reaction Status Date / Time No Known Allergies Allergy Verified 07/10/23 13:58 [facility] Past Medical History Medical History Arthritis Atrial flutter Benign prostatic hyperplasia Cerebrovascular accident 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 Chronic anemia Chronic obstructive pulmonary disease Chronic pain Patient had a pain pump inserted in February 2019. Chronic respiratory failure with hypoxia, on home oxygen therapy Baseline oxygen requirement is 3 L nasal cannula. Congestive heart failure Echocardiogram February 2021: EF 55-60% (improved from prior echo of 45%) left ventricular septal wall motion abnormal related to bundle-branch block, grade 2 diastolic dysfunction, severe pulmonary hypertension with RVSP of 74, severe enlargement of the right atrium Coronary artery disease Diabetic neuropathy Gastroesophageal reflux disease History of bleeding peptic ulcer History of myocardial infarction Hypertension Iron deficiency anemia Receives frequent iron infusions. Liver cirrhosis Moderate pulmonary hypertension Estimated pulmonary arterial systolic pressure was 54 mmHg on echocardiogram dated 10/25/2020. Obstructive sleep apnea Paroxysmal atrial
[2023-08-05 14:12] LABS: Appearance Urine Turbid (Clear); Bacteria Urine 1+ /hpf; Bilirubin Urine Negative (Negative); Blood Urine 3+ (Negative); Budding Yeast Urine Present /hpf; Color Urine Dark Yellow (Yellow); Glucose Urine UA Negative (Negative); Ketones Urine Negative (Negative); Leukocyte Esterase Ur 3+ LEU/UL (Negative); Mucus Urine Present /lpf; Nitrate Urine Negative (Negative); Non Pathogenic Casts >20; Protein Urine 1+ mg/dL (Negative); RBC Urine >100 /hpf (0-2); Specific Grav Ur 1.017 (1.001-1.035); Squamous Epithelial Cell Urine Occasional /hpf (Few); WBC Clumps Urine Present /HPF; WBC Urine >100 /hpf (0-3); pH Urine 5.5 (5.0-9.0)
[2023-08-05 14:14] LABS: Add Urine Microscopic? YES
[2023-08-05 14:59] LABS: Basophils Percent Auto 0.3 % (0.2-1.2); Eosinophils Percent Auto 0.4 % (0-4.4); Hematocrit 39.8 % (42.0-52.0); Lymphocytes Absolute Auto 0.94 K/mm3 (0.9-3.2); Lymphocytes Percent Auto 9.2 % (18.3-44.2); Mean Corpuscular HGB Conc 30.2 g/dl (32-36); Mean Corpuscular Hemoglobin 26.7 pg (26-34); Mean Corpuscular Volume 88.6 fl (80-100); Mean Platelet Volume 10.8 fl (7.4-10.4); Monocytes Percent Auto 9.6 % (2.6-8.5); Neutrophils Absolute Auto 8.2 K/mm3 (1.3-6.7); Neutrophils Percent Auto 79.5 % (45.5-73.1); Platelet Count Result 259 k/mm3 (150-375); Red Blood Count 4.49 M/mm3 (4.6-6.20); Red Cell Distribution Width 18.2 % (11.5-14.5); White Blood Count 10.2 K/mm3 (4.5-10.0)
[2023-08-05 15:10] LABS: INR 1.2; Partial Thromboplastin Time 36.6 Seconds (22.3-36.8); Prothrombin Time 15.3 Seconds (11.1-14.7)
[2023-08-05 15:12] LABS: Lipase 31 U/L (23-300); Magnesium 1.5 mg/dL (1.6-2.3)
[2023-08-05 15:14] LABS: Lactic Acid Reflex 1.4 mmol/L (0.7-2.0)
[2023-08-05 15:17] LABS: NT Pro B Type Natriuretic Pept 4340 pg/mL (19.9-100)
[2023-08-05 15:20] LABS: Troponin I 0.025 ng/mL (0.000-0.034)
[2023-08-05 15:21] LABS: Alanine Aminotransferase 13 U/L (6-50); Albumin Level 2.9 g/dL (3.5-5.1); Alkaline Phosphatase 189 U/L (38-126); Aspartate Amino Transferase 30 U/L (17-59); Bilirubin,Total 0.6 mg/dL (0.2-1.3); Blood Urea Nitrogen 18 mg/dL (9-20); Calcium 8.2 mg/dL (8.4-10.2); Carbon Dioxide > 40 mmol/L (22-30); Chloride 93 mmol/L (98-107); Estimated CRCL calculation 78 ml/min; Estimated Glomerular Filt Rate > 60; Glucose 99 mg/dL (65-110); Potassium 3.4 mmol/L (3.4-5.0); Sodium 135 mmol/L (137-145)
[2023-08-05 15:47] LABS: Influenza A QL RT-PCR Negative (Negative); Influenza B QL RT-PCR Negative (Negative); RSV RNA, RT-PCR Negative (Negative); SARS-CoV-2 RNA PCR Negative (Negative)
[2023-08-05 16:48] LABS: Troponin I 0.025 ng/mL (0.000-0.034)
[2023-08-05] MEDS: MAGNESIUM SULF 2 GM/WATER 50ML 2 GM/50 ML BAG IVPB (16:51)
[2023-08-05] MEDS: LACTATED RINGERS 1,000 ML 100 ML IV CONT (16:51)
[2023-08-05 16:54] LABS: Alveolar/Arterial O2 Gradient 139.6 mmHg; Base Excess ABG 5.9 mEq/l (+/-2.0); Fractional Inspired Oxygen 36 %; HCO3 ABG 30.9 mEq/l (22.0-26.0); Oxygen Content ABG 15.2 %vol (16.0-22.0); Oxygen Saturation ABG 92.7 % (95.0-100.0); Oxyhemoglobin 90.1 % THb (90.0-100.0); PCO2 ABG 46.6 mmHg (35.0-45.0); PO2 FiO2 Ratio Arterial Blood 1.75 %; pH ABG 7.439 (7.350-7.450)
[2023-08-05 16:55] LABS: Device NASAL CANNULA; Modified Allen's Test Pass; Site Drawn LEFT RADIAL
[2023-08-05] MEDS: BISACODYL 10 MG SUPPOSITORY RECTAL (17:45)
--- NOTE | 2023-08-05 18:14 | PM.IMHP ---
H&P: HPI History of Present Illness Date/Time: 08/05/23 21:00 Chief Complaint: Confusion, Hypotension Narrative: 83 y/o M presents here with confusion and hypotension with PMH of chronic respiratory room failure on home O2 (3L NC), atrial flutter/fibrillation, CVA, BPH, COPD, CHF, CAD, HTN, IgA, cirrhosis, moderate pulmonary hypertension, chronic constipation and fecal impaction, bleeding peptic ulcer, CT, MALLORY, and DM2. HPI obtained through chart review, patient able to contribute little due to difficulty understanding speech and recall of events. Patient presents here via EMS from [facility] for further evaluation of confusion and hypertension. Patient's baseline orientation is alert and orientated x3, was alert and orientated x2 today and making inappropriate comments about his . Patient's blood pressure also found to be 90/palp. Patient has hx of indwelling catheter and frequent UTIs. Patient was recently admitted from 07/27/23-07/31/23 for AMS, suspected to be multifactorial (acute on chronic respiratory failure, polypharmacy, aspiration pneumonia). He refused positive pressure ventilation despite a risk versus benefit discussion, Lyrica was stopped, Lasix reduced from 40 b.i.d. to 40 daily, and he has follow-up with his pain management doctor for his pain pump. Prior to this he was admitted from 07/10/23-07/12/23 for pneumonia (c/f aspiration), stercoral colitis and fecal impaction likely due to chronic opioid use. Today he reports some abdominal discomfort but then when asked where it hurts in his abdomen he denies pain. Interacting/speaking with object/person that is not present but able to answer orientation questions x3. Initial VS at presentation: 97.6? F, HR 72, RR 20, 100/66, and 90-93% on 3L NC. ED workup showed: WBC 10.2, stable anemia, INR 1.2, sodium 135, CO2 greater than 40, creatinine 0.6 and GFR >60, magnesium 1.5, and UA suspicious for UTI. CT of the chest/abdomen/pelvis showed cardiomegaly, bilateral pleural effusions, emphysema, stone or polyp episode here your dependent gallbladder wall, bilateral renal cysts, bladder wall thickening, rectal fecal impaction, and a large ventral abdominal wall hernia. Head CT showed unchanged old infarcts in the right occipital lobe, unchanged meningioma, age related changes, and chronic sinusitis. Review of Systems Review of Systems: ROS unobtainable: Yes unobtainable due to mental status [facility] Past Medical History Medical History Arthritis Atrial flutter Benign prostatic hyperplasia Cerebrovascular accident 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 Chronic anemia Chronic obstructive pulmonary disease Chronic pain Patient had a pain pump inserted in February 2019. Chronic respiratory failure with hypoxia, on home oxygen therapy Baseline oxygen requirement is 3 L nasal cannula. Congestive heart failure Echocardiogram February 2021: EF 55-60% (improved from prior echo of 45%) left ventricular septal wall motion abnormal related to bundle-branch block, grade 2 diastolic dysfunction, severe pulmonary hypertension with RVSP of 74, severe enlargement of the right atrium Coronary artery disease Diabetic neuropathy Gastroesophageal reflux disease History of bleeding peptic ulcer History of myocardial infarction Hypertension Iron deficiency anemia Receives frequent iron infusions. Liver cirrhosis Moderate pulmonary hypertension Estimated pulmonary arterial systolic pressure was 54 mmHg on echocardiogram dated 10/25/2020. Obstructive sleep apnea Paroxysmal atrial fibrillation Pseudobulbar affect Spinal stenosis Type 2 diabetes mellitus Hemoglobin A1c was 6.3% on 10/25/2020. Surgical History Surgical History History of bilateral cataract extraction History of bowel resection Dr Torres (2008) [place] and approx 2014
--- NOTE | 2023-08-05 19:07 | PC.NURSE ---
Patient arrived at 1845, Patient was assisted into bed, Telemetry placed on patient, bed alarm on, call capone in reach, Dudley draining yellow urine. Giving report to Garry GRIMES
--- NOTE | 2023-08-05 19:56 | ADMGEN ---
This patient, Zack Orellana, was admitted to 3 [facility] Surg Room 332-02. Patient/family oriented to hospital policies and general routines including ID bracelet, bed and alarms, visiting hours, pain management, procedures, bathroom and other care routines, personal items, smoking policy, room service/diet, and visiting hours. Information on how to activate the Rapid Response Team has been discussed. Patient/Family are encouraged to report perceived risks to care and to ask questions if they do not understand what they are told or what they should do.
[2023-08-05 20:18] LABS: Glucose Point of Care 123 mg/dl (65-105)
[2023-08-06] VITALS (9 sets, daily range): BP systolic 94–116; BP diastolic 46–79; PULSE 58–94; RESP 14–20; TEMP 35.4–36.5; O2SAT 93–96; BMI 22.4
[2023-08-06] MEDS: MEROPENEM 1 GM/NS 100 ML 1 GM/100 ML BAG IVPB ×4 (00:52→20:46)
[2023-08-06 06:13] LABS: Basophils Percent Auto 0.6 % (0.2-1.2); Eosinophils Absolute Auto 0.2 K/mm3 (0-0.3); Eosinophils Percent Auto 2.1 % (0-4.4); Hematocrit 36.6 % (42.0-52.0); Hemoglobin 10.7 g/dL (14.0-18.0); Immature Granulocyte Absolute 0.08 K/mm3 (0.00-0.031); Immature Granulocyte Percent A 1.1 % (0-0.5); Lymphocytes Absolute Auto 0.77 K/mm3 (0.9-3.2); Lymphocytes Percent Auto 10.8 % (18.3-44.2); Mean Corpuscular HGB Conc 29.2 g/dl (32-36); Mean Corpuscular Hemoglobin 26.4 pg (26-34); Mean Corpuscular Volume 90.1 fl (80-100); Mean Platelet Volume 11.1 fl (7.4-10.4); Monocytes Absolute Auto 0.7 K/mm3 (0.1-0.6); Monocytes Percent Auto 10.4 % (2.6-8.5); Neutrophils Absolute Auto 5.3 K/mm3 (1.3-6.7); Platelet Count Result 235 k/mm3 (150-375); Red Blood Count 4.06 M/mm3 (4.6-6.20); Red Cell Distribution Width 18.3 % (11.5-14.5); White Blood Count 7.1 K/mm3 (4.5-10.0)
[2023-08-06 06:24] LABS: Alanine Aminotransferase 11 U/L (6-50); Albumin Level 2.5 g/dL (3.5-5.1); Alkaline Phosphatase 146 U/L (38-126); Anion Gap 4 mmol/L (4-12); Aspartate Amino Transferase 25 U/L (17-59); Bilirubin,Total 0.5 mg/dL (0.2-1.3); Blood Urea Nitrogen 14 mg/dL (9-20); Calcium 7.6 mg/dL (8.4-10.2); Carbon Dioxide 32 mmol/L (22-30); Chloride 97 mmol/L (98-107); Estimated CRCL calculation 112 ml/min; Estimated Glomerular Filt Rate > 60; Glucose 67 mg/dL (65-110); Potassium 3.2 mmol/L (3.4-5.0); Sodium 133 mmol/L (137-145)
[2023-08-06 07:15] LABS: Platelet Estimate Adequate (Adequate); Schistocytes None Seen
[2023-08-06 07:16] LABS: Anisocytosis 1+; Hypochromasia 1+
[2023-08-06 07:17] LABS: Ovalocytes 1+
[2023-08-06] MEDS: POTASSIUM CHLORIDE INJ 40 MEQ in SODIUM CHLORIDE 0.9% IV 500 ML 130 MEQ IVPB (08:25)
--- NOTE | 2023-08-06 11:13 | PM.IMPN ---
Progress Note: A&P Assessment and Plan (1) Confusion: Code(s): R41.0 - Disorientation, unspecified Status: Acute Assessment and Plan: - CT Head: 1. 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 No acute intracranial process. 2. Unchanged 1.6 x 1.2 x 1.1 cm anterior right parafalcine meningioma. 3. Age-related changes including moderate diffuse volume loss and moderate scattered white matter hypoattenuation consistent with chronic small vessel ischemic disease. 4. Chronic sinusitis. - ABG, initial: pH 7.439, pCO2 46.6, pO2 63, HCO3 30.9, O2 sat 92.7% on nasal cannula. Improved compared to prior ABGs. - has UTI, suspect deviation from baseline due to metabolic encephalopathy. treat UTI. - neurochecks Qshift 08/05: Patient answers orientation questions partially correct but still remains confused likely due to infection encephalopathy (2) Decubitus ulcer of sacral region, stage 2: Code(s): L89.152 - Pressure ulcer of sacral region, stage 2 Status: Acute Assessment and Plan: - CT abdomen/ pelvis: Cardiomegaly Moderate right and mild left pleural effusion Prominent right lower lobe and to a lesser extent left lower lobe atelectasis Emphysema Stone or polyp at posterior dependent gallbladder wall Bilateral renal cysts Bladder wall thickening, nonspecific; cystitis is not excluded. Dudley catheter in urinary bladder. Rectal fecal impaction, probably atrophic of material in the colon Large widemouth ventral abdominal wall hernia containing colon and small bowel - wound consulted - has additional pressure wound to left heel - no signs of infection on exam (3) UTI (urinary tract infection): Code(s): N39.0 - Urinary tract infection, site not specified Status: Acute Assessment and Plan: - did not meet SIRS criteria, however blood cultures were obtained and lactic was 1.4. - UA: turbid, 1+ protein, 3+ blood, 3+ leuks, greater than 100 RBC, greater than 100 WBC, WBC clumps present, occasional epithelial cells, 1+ bacteria, urine yeast present. Specimen obtained post Dudley exchange. - UC pending, obtained on 08/04 - previous micro reviewed 04/09/2021: Klebsiella pneumoniae (ESBL) - started on Ceftriaxone on 08/04, given ESBL history will exchanged to Meropenem on 08/04. 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 use Diabetes mellitus complication status: without complication Qualified Code(s): E11.9 - Type 2 diabetes mellitus without complications Code(s): E11.9 - Type 2 diabetes mellitus without complications Status: Chronic Assessment and Plan: - hypoglycemia protocol - POC blood glucose ACHS - awaiting med rec - correct regimen ordered - low dose TIDWM - A1C 6.4% on 07/26/2023 (6) Chronic respiratory failure: Code(s): J96.10 - Chronic respiratory failure, unspecified whether with hypoxia or hypercapnia Status: Chronic Assessment and Plan: - continue supplemental O2: on 3L NC at baseline - ABG improved compared to prior - stable (7) Congestive heart failure: Code(s): I50.9 - Heart failure, unspecified Status: Acute Assessment and Plan: - awaiting med rec - daily weights - monitor I&Os - trend renal function 08/05: Restart furosemide 40 mg daily (8) Hypertension: Code(s): I10 - Essential (primary) hypertension Status: Acute Assessment and Plan: - chronic, currently 100/56 - hold home medications once med rec completed - monitor (9) Hypokalemia: Code(s): E87.6 - Hypokalemia Status: Acute Assessment and Plan:
[2023-08-06 11:56] LABS: Glucose Point of Care 121 mg/dl (65-105)
[2023-08-06] MEDS: MAGNESIUM SULF 2 GM/WATER 50ML 2 GM/50 ML BAG IVPB (14:29)
[2023-08-06 16:46] LABS: Glucose Point of Care 157 mg/dl (65-105)
[2023-08-06 19:57] LABS: Glucose Point of Care 175 mg/dl (65-105)
[2023-08-06] MEDS: METOPROLOL TARTRATE 25 MG TABLET PO (20:45)
[2023-08-06] MEDS: METOPROLOL TARTRATE 12.5 MG TABLET PO (20:46)
[2023-08-07] VITALS (9 sets, daily range): BP systolic 90–113; BP diastolic 49–55; PULSE 57–98; RESP 12–20; TEMP 36.6–36.8; O2SAT 92–98
[2023-08-07] MEDS: MEROPENEM 1 GM/NS 100 ML 1 GM/100 ML BAG IVPB ×3 (05:26→21:06)
[2023-08-07] MEDS: ACETAMINOPHEN 325 MG TABLET 650 MG PO ×2 (05:26→21:06)
[2023-08-07 06:14] LABS: Basophils Percent Auto 0.4 % (0.2-1.2); Eosinophils Absolute Auto 0.2 K/mm3 (0-0.3); Eosinophils Percent Auto 3.5 % (0-4.4); Hematocrit 35.5 % (42.0-52.0); Hemoglobin 10.6 g/dL (14.0-18.0); Immature Granulocyte Absolute 0.07 K/mm3 (0.00-0.031); Lymphocytes Absolute Auto 0.81 K/mm3 (0.9-3.2); Mean Corpuscular HGB Conc 29.9 g/dl (32-36); Mean Corpuscular Hemoglobin 26.6 pg (26-34); Mean Platelet Volume 10.8 fl (7.4-10.4); Monocytes Absolute Auto 0.9 K/mm3 (0.1-0.6); Monocytes Percent Auto 13.4 % (2.6-8.5); Neutrophils Absolute Auto 4.7 K/mm3 (1.3-6.7); Neutrophils Percent Auto 69.7 % (45.5-73.1); Platelet Count Result 278 k/mm3 (150-375); Red Blood Count 3.99 M/mm3 (4.6-6.20); Red Cell Distribution Width 18.4 % (11.5-14.5); White Blood Count 6.8 K/mm3 (4.5-10.0)
[2023-08-07 06:49] LABS: Anion Gap -1 mmol/L (4-12); Blood Urea Nitrogen 14 mg/dL (9-20); Carbon Dioxide 35 mmol/L (22-30); Chloride 100 mmol/L (98-107); Estimated CRCL calculation 112 ml/min; Potassium 3.2 mmol/L (3.4-5.0); Sodium 134 mmol/L (137-145)
[2023-08-07 06:50] LABS: Alanine Aminotransferase 11 U/L (6-50); Albumin Level 2.3 g/dL (3.5-5.1); Alkaline Phosphatase 148 U/L (38-126); Aspartate Amino Transferase 24 U/L (17-59); Bilirubin,Total 0.5 mg/dL (0.2-1.3); Calcium 7.5 mg/dL (8.4-10.2); Estimated Glomerular Filt Rate > 60; Glucose 92 mg/dL (65-110)
[2023-08-07 08:11] LABS: Glucose Point of Care 100 mg/dl (65-105)
[2023-08-07] MEDS: ASCORBIC ACID 500 MG TABLET PO (09:08)
[2023-08-07] MEDS: METOPROLOL TARTRATE 25 MG TABLET PO ×2 (09:08→21:05)
[2023-08-07] MEDS: LINACLOTIDE 145 MCG CAPSULE PO (09:09)
[2023-08-07] MEDS: FLUoxetine HCL 10 MG CAPSULE PO (09:09)
[2023-08-07] MEDS: MULTIVITAMINS /C LUTEIN (CENTRUM SILVER) TABLET *BKC 1 TAB PO (09:09)
[2023-08-07] MEDS: ASPIRIN 325 MG ENTERIC TABLET PO (09:09)
[2023-08-07] MEDS: FERROUS SULFATE 325 MG TABLET DR BY MOUTH (09:09)
[2023-08-07] MEDS: METOPROLOL TARTRATE 12.5 MG TABLET PO ×2 (09:10→21:06)
[2023-08-07] MEDS: FUROSEMIDE 40 MG TABLET PO (09:10)
[2023-08-07 13:02] LABS: Glucose Point of Care 119 mg/dl (65-105)
--- NOTE | 2023-08-07 13:04 | PM.IMPN ---
Progress Note: A&P Assessment and Plan (1) Confusion: Code(s): R41.0 - Disorientation, unspecified Status: Acute Assessment and Plan: - CT Head: 1. 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 No acute intracranial process. 2. Unchanged 1.6 x 1.2 x 1.1 cm anterior right parafalcine meningioma. 3. Age-related changes including moderate diffuse volume loss and moderate scattered white matter hypoattenuation consistent with chronic small vessel ischemic disease. 4. Chronic sinusitis. - ABG, initial: pH 7.439, pCO2 46.6, pO2 63, HCO3 30.9, O2 sat 92.7% on nasal cannula. Improved compared to prior ABGs. - has UTI, suspect deviation from baseline due to metabolic encephalopathy. treat UTI. - neurochecks Qshift 08/05: Patient answers orientation questions partially correct but still remains confused likely due to infection encephalopathy 08/06: Level of consciousness improved, confusion improved but told me that two dish washers came in and gave him a bath. (2) Decubitus ulcer of sacral region, stage 2: Code(s): L89.152 - Pressure ulcer of sacral region, stage 2 Status: Acute Assessment and Plan: - CT abdomen/ pelvis: Cardiomegaly Moderate right and mild left pleural effusion Prominent right lower lobe and to a lesser extent left lower lobe atelectasis Emphysema Stone or polyp at posterior dependent gallbladder wall Bilateral renal cysts Bladder wall thickening, nonspecific; cystitis is not excluded. Dudley catheter in urinary bladder. Rectal fecal impaction, probably atrophic of material in the colon Large widemouth ventral abdominal wall hernia containing colon and small bowel - wound consulted - has additional pressure wound to left heel - no signs of infection on exam (3) UTI (urinary tract infection): Code(s): N39.0 - Urinary tract infection, site not specified Status: Acute Assessment and Plan: - did not meet SIRS criteria, however blood cultures were obtained and lactic was 1.4. - UA: turbid, 1+ protein, 3+ blood, 3+ leuks, greater than 100 RBC, greater than 100 WBC, WBC clumps present, occasional epithelial cells, 1+ bacteria, urine yeast present. Specimen obtained post Dudley exchange. - UC pending, obtained on 08/04 - previous micro reviewed 04/09/2021: Klebsiella pneumoniae (ESBL) - started on Ceftriaxone on 08/04, given ESBL history will exchanged to Meropenem on 08/04. 08/05: Continue meropenem, cultures pending 08/06: Urine culture no growth, blood cultures negative growth to date. (4) Fecal impaction: Code(s): K56.41 - Fecal impaction Status: Acute Assessment and Plan: - recurrent - soap suds enema ordered - continue home medications once reviewed 08/05: BM x3 today 08/06: Extremely large bowel movement per nursing staff (5) Type 2 diabetes mellitus: Qualifiers: Diabetes mellitus retirement insulin use: without superintendent marine oil terminal use Diabetes mellitus complication status: without complication Qualified Code(s): E11.9 - Type 2 diabetes mellitus without complications Code(s): E11.9 - Type 2 diabetes mellitus without complications Status: Chronic Assessment and Plan: - hypoglycemia protocol - POC blood glucose ACHS - awaiting med rec - correct regimen ordered - low dose TIDWM - A1C 6.4% on 07/26/2023 (6) Chronic respiratory failure: Code(s): J96.10 - Chronic respiratory failure, unspecified whether with hypoxia or hypercapnia Status: Chronic Assessment and Plan: - continue supplemental O2: on 3L NC at baseline - ABG improved compared to prior - stable (7) Congestive heart failure: Code(s): I50.9 - Heart failure, unspecified Status: Acute Assessment and Plan: - awaiting med rec - daily weights - monitor I&Os - trend renal function 08/05: Restart furosemide 40 mg daily 08/06: Moderate right pleural effusion noted lung sounds clear anter
[2023-08-07] MEDS: POTASSIUM CHLORIDE 20 MEQ PACKET (FOR LIQUID) 40 MEQ PO (15:28)
[2023-08-07 17:13] LABS: Glucose Point of Care 196 mg/dl (65-105)
[2023-08-07 20:26] LABS: Glucose Point of Care 167 mg/dl (65-105)
[2023-08-07 23:22] LABS: Anion Gap -1 mmol/L (4-12); Blood Urea Nitrogen 17 mg/dL (9-20); Calcium 7.6 mg/dL (8.4-10.2); Carbon Dioxide 34 mmol/L (22-30); Chloride 102 mmol/L (98-107); Estimated CRCL calculation 95 ml/min; Estimated Glomerular Filt Rate > 60; Glucose 130 mg/dL (65-110); Sodium 135 mmol/L (137-145)
[2023-08-08] VITALS (11 sets, daily range): BP systolic 88–119; BP diastolic 47–63; PULSE 44–60; RESP 12–14; TEMP 36.2–36.6; O2SAT 92–99
[2023-08-08] MEDS: MEROPENEM 1 GM/NS 100 ML 1 GM/100 ML BAG IVPB ×3 (05:24→21:06)
[2023-08-08 06:49] LABS: Basophils Absolute Auto 0.1 K/mm3 (0.0-0.1); Basophils Percent Auto 0.8 % (0.2-1.2); Eosinophils Absolute Auto 0.2 K/mm3 (0-0.3); Eosinophils Percent Auto 3.6 % (0-4.4); Hematocrit 37.2 % (42.0-52.0); Hemoglobin 10.8 g/dL (14.0-18.0); Immature Granulocyte Absolute 0.09 K/mm3 (0.00-0.031); Immature Granulocyte Percent A 1.4 % (0-0.5); Lymphocytes Absolute Auto 0.95 K/mm3 (0.9-3.2); Lymphocytes Percent Auto 14.9 % (18.3-44.2); Mean Corpuscular Hemoglobin 26.1 pg (26-34); Mean Corpuscular Volume 89.9 fl (80-100); Mean Platelet Volume 10.5 fl (7.4-10.4); Monocytes Absolute Auto 0.8 K/mm3 (0.1-0.6); Monocytes Percent Auto 11.9 % (2.6-8.5); Neutrophils Absolute Auto 4.3 K/mm3 (1.3-6.7); Neutrophils Percent Auto 67.4 % (45.5-73.1); Platelet Count Result 270 k/mm3 (150-375); Red Blood Count 4.14 M/mm3 (4.6-6.20); Red Cell Distribution Width 18.4 % (11.5-14.5); White Blood Count 6.4 K/mm3 (4.5-10.0)
[2023-08-08 07:01] LABS: Alanine Aminotransferase 12 U/L (6-50); Albumin Level 2.3 g/dL (3.5-5.1); Alkaline Phosphatase 162 U/L (38-126); Anion Gap 0 mmol/L (4-12); Aspartate Amino Transferase 25 U/L (17-59); Bilirubin,Total 0.5 mg/dL (0.2-1.3); Blood Urea Nitrogen 16 mg/dL (9-20); Calcium 7.6 mg/dL (8.4-10.2); Carbon Dioxide 33 mmol/L (22-30); Chloride 103 mmol/L (98-107); Estimated CRCL calculation 115 ml/min; Estimated Glomerular Filt Rate > 60; Glucose 92 mg/dL (65-110); Magnesium 1.8 mg/dL (1.6-2.3); Potassium 3.7 mmol/L (3.4-5.0); Sodium 136 mmol/L (137-145)
[2023-08-08 07:14] LABS: Anisocytosis 1+; Ovalocytes 1+; Platelet Estimate Adequate (Adequate)
[2023-08-08 07:15] LABS: Schistocytes None Seen
[2023-08-08 07:50] LABS: Glucose Point of Care 93 mg/dl (65-105)
[2023-08-08] MEDS: FERROUS SULFATE 325 MG TABLET DR BY MOUTH (10:00)
[2023-08-08] MEDS: ASCORBIC ACID 500 MG TABLET PO (10:00)
[2023-08-08] MEDS: FLUoxetine HCL 10 MG CAPSULE PO (10:00)
[2023-08-08] MEDS: ASPIRIN 325 MG ENTERIC TABLET PO (10:00)
[2023-08-08] MEDS: LINACLOTIDE 145 MCG CAPSULE PO (10:00)
[2023-08-08] MEDS: MULTIVITAMINS /C LUTEIN (CENTRUM SILVER) TABLET *BKC 1 TAB PO (10:00)
[2023-08-08] MEDS: METOPROLOL TARTRATE 25 MG TABLET PO (10:05)
[2023-08-08] MEDS: FUROSEMIDE 40 MG TABLET PO (10:05)
[2023-08-08] MEDS: METOPROLOL TARTRATE 12.5 MG TABLET PO (10:05)
--- NOTE | 2023-08-08 10:14 | PM.IMPN ---
Progress Note: A&P Assessment and Plan (1) Confusion: Code(s): R41.0 - Disorientation, unspecified Status: Acute Assessment and Plan: - CT Head: 1. 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 No acute intracranial process. 2. Unchanged 1.6 x 1.2 x 1.1 cm anterior right parafalcine meningioma. 3. Age-related changes including moderate diffuse volume loss and moderate scattered white matter hypoattenuation consistent with chronic small vessel ischemic disease. 4. Chronic sinusitis. - ABG, initial: pH 7.439, pCO2 46.6, pO2 63, HCO3 30.9, O2 sat 92.7% on nasal cannula. Improved compared to prior ABGs. - has UTI, suspect deviation from baseline due to metabolic encephalopathy. treat UTI. - neurochecks Qshift 08/05: Patient answers orientation questions partially correct but still remains confused likely due to infection encephalopathy 08/06: Level of consciousness improved, confusion improved but told me that two dish washers came in and gave him a bath. 08/07: Improving level of consciousness. (2) Decubitus ulcer of sacral region, stage 2: Code(s): L89.152 - Pressure ulcer of sacral region, stage 2 Status: Acute Assessment and Plan: - CT abdomen/ pelvis: Cardiomegaly Moderate right and mild left pleural effusion Prominent right lower lobe and to a lesser extent left lower lobe atelectasis Emphysema Stone or polyp at posterior dependent gallbladder wall Bilateral renal cysts Bladder wall thickening, nonspecific; cystitis is not excluded. Dudley catheter in urinary bladder. Rectal fecal impaction, probably atrophic of material in the colon Large widemouth ventral abdominal wall hernia containing colon and small bowel - wound consulted - has additional pressure wound to left heel - no signs of infection on exam (3) UTI (urinary tract infection): Code(s): N39.0 - Urinary tract infection, site not specified Status: Acute Assessment and Plan: - did not meet SIRS criteria, however blood cultures were obtained and lactic was 1.4. - UA: turbid, 1+ protein, 3+ blood, 3+ leuks, greater than 100 RBC, greater than 100 WBC, WBC clumps present, occasional epithelial cells, 1+ bacteria, urine yeast present. Specimen obtained post Dudley exchange. - UC pending, obtained on 08/04 - previous micro reviewed 04/09/2021: Klebsiella pneumoniae (ESBL) - started on Ceftriaxone on 08/04, given ESBL history will exchanged to Meropenem on 08/04. 08/05: Continue meropenem, cultures pending 08/06: Urine culture no growth, blood cultures negative growth to date. 08/07: Despite no growth patient is improved significantly with IV antibiotics. Continue course of IV antibiotics. (4) Fecal impaction: Code(s): K56.41 - Fecal impaction Status: Acute Assessment and Plan: - recurrent - soap suds enema ordered - continue home medications once reviewed 08/05: BM x3 today 08/06: Extremely large bowel movement per nursing staff 08/07: Likely resolved (5) Type 2 diabetes mellitus: Qualifiers: Diabetes mellitus assisted insulin use: without assisted use Diabetes mellitus complication status: without complication Qualified Code(s): E11.9 - Type 2 diabetes mellitus without complications Code(s): E11.9 - Type 2 diabetes mellitus without complications Status: Chronic Assessment and Plan: - hypoglycemia protocol - POC blood glucose ACHS - awaiting med rec - correct regimen ordered - low dose TIDWM - A1C 6.4% on 07/26/2023 (6) Chronic respiratory failure: Code(s): J96.10 - Chronic respiratory failure, unspecified whether with hypoxia or hypercapnia Status: Chronic Assessment and Plan: - continue supplemental O2: on 3L NC at baseline - ABG improved compared to prior - stable (7) Congestive heart failure: Code(s): I50.9 - Heart failure, unspecified Status: Acute Assessment and Plan: - a
[2023-08-08 11:52] LABS: Glucose Point of Care 145 mg/dl (65-105)
[2023-08-08] MEDS: ACETAMINOPHEN 325 MG TABLET 650 MG PO ×2 (14:02→21:04)
[2023-08-08 16:47] LABS: Glucose Point of Care 174 mg/dl (65-105)
[2023-08-08 21:22] LABS: Glucose Point of Care 162 mg/dl (65-105)
[2023-08-09] VITALS (7 sets, daily range): BP systolic 101–117; BP diastolic 52–71; PULSE 47–65; RESP 12–22; TEMP 36.2–36.6; O2SAT 91–100
[2023-08-09] MEDS: KETOROLAC 15 MG/ML VIAL (*BKC) IV PUSH ×2 (05:30→23:49)
[2023-08-09] MEDS: MEROPENEM 1 GM/NS 100 ML 1 GM/100 ML BAG IVPB ×3 (05:32→21:52)
[2023-08-09 06:15] LABS: Basophils Absolute Auto 0.1 K/mm3 (0.0-0.1); Basophils Percent Auto 0.7 % (0.2-1.2); Eosinophils Absolute Auto 0.2 K/mm3 (0-0.3); Hematocrit 41.1 % (42.0-52.0); Hemoglobin 11.8 g/dL (14.0-18.0); Immature Granulocyte Absolute 0.09 K/mm3 (0.00-0.031); Immature Granulocyte Percent A 1.2 % (0-0.5); Lymphocytes Absolute Auto 1.04 K/mm3 (0.9-3.2); Lymphocytes Percent Auto 13.6 % (18.3-44.2); Mean Corpuscular HGB Conc 28.7 g/dl (32-36); Mean Corpuscular Hemoglobin 26.4 pg (26-34); Mean Corpuscular Volume 91.9 fl (80-100); Monocytes Absolute Auto 0.7 K/mm3 (0.1-0.6); Monocytes Percent Auto 9.7 % (2.6-8.5); Neutrophils Absolute Auto 5.6 K/mm3 (1.3-6.7); Neutrophils Percent Auto 72.8 % (45.5-73.1); Platelet Count Result 262 k/mm3 (150-375); Red Blood Count 4.47 M/mm3 (4.6-6.20); Red Cell Distribution Width 18.3 % (11.5-14.5); White Blood Count 7.6 K/mm3 (4.5-10.0)
[2023-08-09 06:29] LABS: Alanine Aminotransferase 14 U/L (6-50); Albumin Level 2.4 g/dL (3.5-5.1); Alkaline Phosphatase 189 U/L (38-126); Anion Gap 1 mmol/L (4-12); Aspartate Amino Transferase 33 U/L (17-59); Bilirubin,Total 0.4 mg/dL (0.2-1.3); Blood Urea Nitrogen 17 mg/dL (9-20); Calcium 7.7 mg/dL (8.4-10.2); Carbon Dioxide 34 mmol/L (22-30); Chloride 102 mmol/L (98-107); Estimated CRCL calculation 95 ml/min; Estimated Glomerular Filt Rate > 60; Glucose 97 mg/dL (65-110); Magnesium 1.6 mg/dL (1.6-2.3); Potassium 3.8 mmol/L (3.4-5.0); Sodium 137 mmol/L (137-145)
[2023-08-09 07:28] LABS: Anisocytosis 1+; Ovalocytes 1+; Platelet Estimate Adequate (Adequate); Schistocytes None Seen
[2023-08-09 07:43] LABS: Glucose Point of Care 84 mg/dl (65-105)
[2023-08-09 08:54] LABS: Glucose Point of Care 93 mg/dl (65-105)
[2023-08-09] MEDS: ASPIRIN 325 MG ENTERIC TABLET PO (09:54)
[2023-08-09] MEDS: ACETAMINOPHEN 325 MG TABLET 650 MG PO (09:54)
[2023-08-09] MEDS: LINACLOTIDE 145 MCG CAPSULE PO (09:54)
[2023-08-09] MEDS: FUROSEMIDE 40 MG TABLET PO (09:55)
[2023-08-09] MEDS: ASCORBIC ACID 500 MG TABLET PO (09:55)
--- NOTE | 2023-08-09 09:55 | PM.IMPN ---
Progress Note: A&P Assessment and Plan (1) Confusion: Code(s): R41.0 - Disorientation, unspecified Status: Acute Assessment and Plan: - CT Head: 1. 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 No acute intracranial process. 2. Unchanged 1.6 x 1.2 x 1.1 cm anterior right parafalcine meningioma. 3. Age-related changes including moderate diffuse volume loss and moderate scattered white matter hypoattenuation consistent with chronic small vessel ischemic disease. 4. Chronic sinusitis. - ABG, initial: pH 7.439, pCO2 46.6, pO2 63, HCO3 30.9, O2 sat 92.7% on nasal cannula. Improved compared to prior ABGs. - has UTI, suspect deviation from baseline due to metabolic encephalopathy. treat UTI. - neurochecks Qshift 08/05: Patient answers orientation questions partially correct but still remains confused likely due to infection encephalopathy 08/06: Level of consciousness improved, confusion improved but told me that two dish washers came in and gave him a bath. 08/07: Improving level of consciousness. 08/08- alert- appropriate- monitor (2) Decubitus ulcer of sacral region, stage 2: Code(s): L89.152 - Pressure ulcer of sacral region, stage 2 Status: Acute Assessment and Plan: - CT abdomen/ pelvis: Cardiomegaly Moderate right and mild left pleural effusion Prominent right lower lobe and to a lesser extent left lower lobe atelectasis Emphysema Stone or polyp at posterior dependent gallbladder wall Bilateral renal cysts Bladder wall thickening, nonspecific; cystitis is not excluded. Dudley catheter in urinary bladder. Rectal fecal impaction, probably atrophic of material in the colon Large widemouth ventral abdominal wall hernia containing colon and small bowel - wound consulted - has additional pressure wound to left heel - no signs of infection on exam 08/08- continue to monitor (3) UTI (urinary tract infection): Code(s): N39.0 - Urinary tract infection, site not specified Status: Acute Assessment and Plan: - did not meet SIRS criteria, however blood cultures were obtained and lactic was 1.4. - UA: turbid, 1+ protein, 3+ blood, 3+ leuks, greater than 100 RBC, greater than 100 WBC, WBC clumps present, occasional epithelial cells, 1+ bacteria, urine yeast present. Specimen obtained post Dudley exchange. - UC pending, obtained on 08/04 - previous micro reviewed 04/09/2021: Klebsiella pneumoniae (ESBL) - started on Ceftriaxone on 08/04, given ESBL history will exchanged to Meropenem on 08/04. 08/05: Continue meropenem, cultures pending 08/06: Urine culture no growth, blood cultures negative growth to date. 08/07: Despite no growth patient is improved significantly with IV antibiotics. Continue course of IV antibiotics. 08/08 conntinue regimen (4) Fecal impaction: Code(s): K56.41 - Fecal impaction Status: Acute Assessment and Plan: - recurrent - soap suds enema ordered - continue home medications once reviewed 08/05: BM x3 today 08/06: Extremely large bowel movement per nursing staff 08/07: Likely resolved 08/08- several lose BM- hold laxatives, monitor (5) Type 2 diabetes mellitus: Qualifiers: Diabetes mellitus complication status: without complication Diabetes mellitus mcfp insulin use: without mcfp use Qualified Code(s): E11.9 - Type 2 diabetes mellitus without complications Code(s): E11.9 - Type 2 diabetes mellitus without complications Status: Chronic Assessment and Plan: - hypoglycemia protocol - POC blood glucose ACHS - awaiting med rec - correct regimen ordered - low dose TIDWM - A1C 6.4% on 07/26/2023 (6) Chronic respiratory failure: Code(s): J96.10 - Chronic respiratory failure, unspecified whether with hypoxia or hypercapnia Status: Chronic Assessment and Plan: - continue supplemental O2: on 3L NC at baseline - ABG improved compared to prior - stable (7)
[2023-08-09] MEDS: FERROUS SULFATE 325 MG TABLET DR BY MOUTH (10:00)
[2023-08-09] MEDS: FLUoxetine HCL 10 MG CAPSULE PO (10:00)
[2023-08-09] MEDS: MULTIVITAMINS /C LUTEIN (CENTRUM SILVER) TABLET *BKC 1 TAB PO (10:00)
[2023-08-09 11:42] LABS: Glucose Point of Care 135 mg/dl (65-105)
--- NOTE | 2023-08-09 13:05 | PC.NURSE ---
Spoke with Granddaughter Deepika because she wanted an up date on the pt and she was informed that the pt is a lot more coherent today and does have moments of confusion but it more alert and awake today. She also informed of the plan for today which was to work on getting a better machine repairman on pts pain management as well as slowing down the bowels. Pt granddaughter has no further questions at this time.
[2023-08-09 18:52] LABS: Glucose Point of Care 137 mg/dl (65-105)
[2023-08-09] MEDS: METOPROLOL TARTRATE 25 MG TABLET PO (21:52)
[2023-08-09] MEDS: METOPROLOL TARTRATE 12.5 MG TABLET PO (21:52)
[2023-08-10] VITALS (8 sets, daily range): BP systolic 111–125; BP diastolic 53–67; PULSE 55–81; RESP 18–20; TEMP 35.8–36.4; O2SAT 94–98
[2023-08-10] MEDS: MEROPENEM 1 GM/NS 100 ML 1 GM/100 ML BAG IVPB (06:11)
[2023-08-10 06:22] LABS: Basophils Percent Auto 0.6 % (0.2-1.2); Eosinophils Absolute Auto 0.3 K/mm3 (0-0.3); Eosinophils Percent Auto 4.1 % (0-4.4); Hematocrit 38.1 % (42.0-52.0); Hemoglobin 11.3 g/dL (14.0-18.0); Immature Granulocyte Absolute 0.08 K/mm3 (0.00-0.031); Immature Granulocyte Percent A 1.2 % (0-0.5); Lymphocytes Absolute Auto 1.01 K/mm3 (0.9-3.2); Lymphocytes Percent Auto 15.2 % (18.3-44.2); Mean Corpuscular HGB Conc 29.7 g/dl (32-36); Mean Corpuscular Hemoglobin 26.7 pg (26-34); Mean Corpuscular Volume 89.9 fl (80-100); Mean Platelet Volume 10.3 fl (7.4-10.4); Monocytes Absolute Auto 0.7 K/mm3 (0.1-0.6); Monocytes Percent Auto 9.8 % (2.6-8.5); Neutrophils Absolute Auto 4.6 K/mm3 (1.3-6.7); Neutrophils Percent Auto 69.1 % (45.5-73.1); Platelet Count Result 293 k/mm3 (150-375); Red Blood Count 4.24 M/mm3 (4.6-6.20); Red Cell Distribution Width 18.4 % (11.5-14.5); White Blood Count 6.6 K/mm3 (4.5-10.0)
[2023-08-10 06:50] LABS: Alanine Aminotransferase 15 U/L (6-50); Albumin Level 2.2 g/dL (3.5-5.1); Alkaline Phosphatase 233 U/L (38-126); Anion Gap -1 mmol/L (4-12); Aspartate Amino Transferase 32 U/L (17-59); Bilirubin,Total 0.3 mg/dL (0.2-1.3); Blood Urea Nitrogen 17 mg/dL (9-20); Calcium 7.9 mg/dL (8.4-10.2); Carbon Dioxide 33 mmol/L (22-30); Chloride 103 mmol/L (98-107); Estimated CRCL calculation 95 ml/min; Estimated Glomerular Filt Rate > 60; Glucose 119 mg/dL (65-110); Magnesium 1.6 mg/dL (1.6-2.3); Potassium 3.8 mmol/L (3.4-5.0); Sodium 135 mmol/L (137-145)
[2023-08-10 06:54] LABS: Glucose Point of Care 121 mg/dl (65-105)
[2023-08-10] MEDS: KETOROLAC 15 MG/ML VIAL (*BKC) IV PUSH (07:55)
[2023-08-10 07:58] LABS: Glucose Point of Care 106 mg/dl (65-105)
[2023-08-10 08:00] LABS: Platelet Estimate Adequate (Adequate)
[2023-08-10 08:01] LABS: Anisocytosis 1+; Ovalocytes 1+; Schistocytes None Seen
[2023-08-10] MEDS: ASPIRIN 325 MG ENTERIC TABLET PO (08:51)
[2023-08-10] MEDS: FLUoxetine HCL 10 MG CAPSULE PO (08:51)
[2023-08-10] MEDS: FUROSEMIDE 40 MG TABLET PO (08:51)
[2023-08-10] MEDS: FERROUS SULFATE 325 MG TABLET DR BY MOUTH (08:51)
[2023-08-10] MEDS: ASCORBIC ACID 500 MG TABLET PO (08:51)
[2023-08-10] MEDS: METOPROLOL TARTRATE 25 MG TABLET PO ×2 (08:51→20:50)
[2023-08-10] MEDS: MULTIVITAMINS /C LUTEIN (CENTRUM SILVER) TABLET *BKC 1 TAB PO (08:51)
[2023-08-10] MEDS: LINACLOTIDE 145 MCG CAPSULE PO (08:51)
[2023-08-10] MEDS: METOPROLOL TARTRATE 12.5 MG TABLET PO ×2 (08:52→20:50)
[2023-08-10] MEDS: ACETAMINOPHEN 325 MG TABLET 650 MG PO (11:00)
[2023-08-10] MEDS: ONDANSETRON INJ 4 MG/2 ML VIAL IV PUSH (11:01)
[2023-08-10 11:20] LABS: Glucose Point of Care 161 mg/dl (65-105)
--- NOTE | 2023-08-10 12:43 | PM.IMPN ---
Progress Note: A&P Assessment and Plan (1) Confusion: Code(s): R41.0 - Disorientation, unspecified Status: Acute Assessment and Plan: - CT Head: 1. 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 No acute intracranial process. 2. Unchanged 1.6 x 1.2 x 1.1 cm anterior right parafalcine meningioma. 3. Age-related changes including moderate diffuse volume loss and moderate scattered white matter hypoattenuation consistent with chronic small vessel ischemic disease. 4. Chronic sinusitis. - ABG, initial: pH 7.439, pCO2 46.6, pO2 63, HCO3 30.9, O2 sat 92.7% on nasal cannula. Improved compared to prior ABGs. - has UTI, suspect deviation from baseline due to metabolic encephalopathy. treat UTI. - neurochecks Qshift 08/05: Patient answers orientation questions partially correct but still remains confused likely due to infection encephalopathy 08/06: Level of consciousness improved, confusion improved but told me that two dish washers came in and gave him a bath. 08/07: Improving level of consciousness. 08/08- alert- appropriate- monitor 08/09: Appears baseline level consciousness (2) Decubitus ulcer of sacral region, stage 2: Code(s): L89.152 - Pressure ulcer of sacral region, stage 2 Status: Acute Assessment and Plan: - CT abdomen/ pelvis: Cardiomegaly Moderate right and mild left pleural effusion Prominent right lower lobe and to a lesser extent left lower lobe atelectasis Emphysema Stone or polyp at posterior dependent gallbladder wall Bilateral renal cysts Bladder wall thickening, nonspecific; cystitis is not excluded. Dudley catheter in urinary bladder. Rectal fecal impaction, probably atrophic of material in the colon Large widemouth ventral abdominal wall hernia containing colon and small bowel - wound consulted - has additional pressure wound to left heel - no signs of infection on exam 08/08- continue to monitor (3) UTI (urinary tract infection): Code(s): N39.0 - Urinary tract infection, site not specified Status: Acute Assessment and Plan: - did not meet SIRS criteria, however blood cultures were obtained and lactic was 1.4. - UA: turbid, 1+ protein, 3+ blood, 3+ leuks, greater than 100 RBC, greater than 100 WBC, WBC clumps present, occasional epithelial cells, 1+ bacteria, urine yeast present. Specimen obtained post Dudley exchange. - UC pending, obtained on 08/04 - previous micro reviewed 04/09/2021: Klebsiella pneumoniae (ESBL) - started on Ceftriaxone on 08/04, given ESBL history will exchanged to Meropenem on 08/04. 08/05: Continue meropenem, cultures pending 08/06: Urine culture no growth, blood cultures negative growth to date. 08/07: Despite no growth patient is improved significantly with IV antibiotics. Continue course of IV antibiotics. 08/08 conntinue regimen 08/09: DC meropenem has completed full course (4) Fecal impaction: Code(s): K56.41 - Fecal impaction Status: Acute Assessment and Plan: - recurrent - soap suds enema ordered - continue home medications once reviewed 08/05: BM x3 today 08/06: Extremely large bowel movement per nursing staff 08/07: Likely resolved 08/08- several lose BM- hold laxatives, monitor 08/09: Fecal management system in place due to large amount liquid stool. Will check C diff due to numerous antibiotics recently (5) Type 2 diabetes mellitus: Qualifiers: Diabetes mellitus longterm insulin use: without intermodal customer service use Diabetes mellitus complication status: without complication Qualified Code(s): E11.9 - Type 2 diabetes mellitus without complications Code(s): E11.9 - Type 2 diabetes mellitus without complications Status: Chronic Assessment and Plan: - hypoglycemia protocol - POC blood glucose ACHS - awaiting med rec - correct regimen ordered - low dose TIDWM - A1C 6.4% on 07/26/2023 (6) Chronic respiratory failure: Code(s): J96.10 - Chronic re
[2023-08-10 17:06] LABS: Glucose Point of Care 152 mg/dl (65-105)
[2023-08-10 17:33] LABS: Toxigenic C. Diff NEGATIVE (NEGATIVE)
[2023-08-10] MEDS: KETOROLAC 15 MG/ML VIAL (*BKC) 10 MG IV PUSH (19:35)
[2023-08-11 00:08] LABS: Glucose Point of Care 126 mg/dl (65-105)
[2023-08-11] MEDS: KETOROLAC 15 MG/ML VIAL (*BKC) 10 MG IV PUSH ×2 (05:43→11:24)
[2023-08-11 05:46] VITALS: BP 127/60; PULSE 58; RESP 18; TEMP 36.5; O2SAT 97
[2023-08-11 06:01] LABS: Basophils Absolute Auto 0.1 K/mm3 (0.0-0.1); Basophils Percent Auto 0.7 % (0.2-1.2); Eosinophils Absolute Auto 0.1 K/mm3 (0-0.3); Hematocrit 42.2 % (42.0-52.0); Hemoglobin 12.5 g/dL (14.0-18.0); Immature Granulocyte Percent A 1.4 % (0-0.5); Lymphocytes Absolute Auto 1.33 K/mm3 (0.9-3.2); Lymphocytes Percent Auto 18.2 % (18.3-44.2); Mean Corpuscular HGB Conc 29.6 g/dl (32-36); Mean Corpuscular Hemoglobin 26.3 pg (26-34); Mean Corpuscular Volume 88.8 fl (80-100); Mean Platelet Volume 10.4 fl (7.4-10.4); Monocytes Absolute Auto 0.5 K/mm3 (0.1-0.6); Monocytes Percent Auto 7.3 % (2.6-8.5); Neutrophils Absolute Auto 5.2 K/mm3 (1.3-6.7); Neutrophils Percent Auto 71.4 % (45.5-73.1); Platelet Count Result 334 k/mm3 (150-375); Red Blood Count 4.75 M/mm3 (4.6-6.20); Red Cell Distribution Width 18.3 % (11.5-14.5); White Blood Count 7.3 K/mm3 (4.5-10.0)
[2023-08-11 06:23] LABS: Alanine Aminotransferase 17 U/L (6-50); Albumin Level 2.5 g/dL (3.5-5.1); Alkaline Phosphatase 226 U/L (38-126); Aspartate Amino Transferase 37 U/L (17-59); Bilirubin,Total 0.4 mg/dL (0.2-1.3); Blood Urea Nitrogen 16 mg/dL (9-20); Calcium 7.7 mg/dL (8.4-10.2); Carbon Dioxide > 40 mmol/L (22-30); Chloride 97 mmol/L (98-107); Estimated CRCL calculation 115 ml/min; Estimated Glomerular Filt Rate > 60; Glucose 86 mg/dL (65-110); Magnesium 1.5 mg/dL (1.6-2.3); Sodium 134 mmol/L (137-145)
[2023-08-11 06:25] LABS: Platelet Estimate Adequate (Adequate)
[2023-08-11 06:26] LABS: Schistocytes None Seen
[2023-08-11 06:27] LABS: Anisocytosis 1+; Hypochromasia 1+; Ovalocytes 1+
--- NOTE | 2023-08-11 07:42 | PM.DS ---
DS: Admitting Diagnosis Discharge Date 08/11/2023 Admitting Diagnosis Confusion, decubitus ulcer of sacral region stage II, UTI, fecal impaction, type 2 diabetes mellitus, chronic respiratory failure, congestive heart failure, hypertension DS: Discharge Diagnosis Discharge Diagnosis (1) Confusion: Code(s): R41.0 - Disorientation, unspecified Status: Acute (2) Decubitus ulcer of sacral region, stage 2: Code(s): L89.152 - Pressure ulcer of sacral region, stage 2 Status: Chronic (3) UTI (urinary tract infection): Code(s): N39.0 - Urinary tract infection, site not specified Status: Ruled-out (4) Fecal impaction: Code(s): K56.41 - Fecal impaction Status: Resolved (5) Type 2 diabetes mellitus: Qualifiers: Diabetes mellitus furnace attendant insulin use: without furnace attendant use Diabetes mellitus complication status: without complication Qualified Code(s): E11.9 - Type 2 diabetes mellitus without complications Code(s): E11.9 - Type 2 diabetes mellitus without complications Status: Chronic (6) Chronic respiratory failure: Qualifiers: Respiratory failure complication: hypoxia Qualified Code(s): J96.11 - Chronic respiratory failure with hypoxia Code(s): J96.10 - Chronic respiratory failure, unspecified whether with hypoxia or hypercapnia Status: Chronic (7) Congestive heart failure: Qualifiers: Heart failure type: combined systolic and diastolic Heart failure chronicity: chronic Qualified Code(s): I50.42 - Chronic combined systolic (congestive) and diastolic (congestive) heart failure Code(s): I50.9 - Heart failure, unspecified Status: Chronic (8) Hypertension: Code(s): I10 - Essential (primary) hypertension Status: Chronic (9) Hypokalemia: Code(s): E87.6 - Hypokalemia Status: Acute DS: Summary Hospital Course Hospital Course: This is an 83-year-old male patient with numerous significant medical problems who was found to be hypotensive and confused at his residential alf. Patient was admitted with suspicion of urinary tract infection due to indwelling Dudley catheter. Given numerous prior infections with ESBL patient was started on meropenem and his condition improved over the next couple days. Blood cultures negative. Patient had fecal impaction admission required soapsuds enema then developed subsequent significant amounts of diarrhea. Fecal management system was inserted. Yesterday patient's medications were further reviewed and we held or discontinued some his numerous stool softeners. He either gets constipated and impacted or has diarrhea; there is little middle ground. His skin on his backside have improved with fecal management system however this cannot stand place to return to the nursing facility. He completed course of IV meropenem. Ultimately urine culture was negative but meropenem continued due to significant improvement in patient condition. Patient's respiratory status remained stable on home oxygen. He continues a pureed diet with pudding thick liquids due to prior aspiration and I saw him cough a couple times while eating oatmeal. Patient will have orders for speech therapy on discharge to continue working on swallowing without aspiration. Status at Discharge Cognitive/behavioral status at discharge: Awake alert to baseline orientation, pleasant Functional status at discharge: bed bound Overall status at discharge: patient is not back to baseline Time Spent with Patient Time attestation: Total time spent providing and/or coordinating discharge services: 45 minutes Time spent: Greater than 30 minutes Exam Const: General: comfortable and no acute distress Other: , male, elderly, chronically ill-appearing HENMT: Mouth: Yes moist mucous membranes Eyes: General: appearance normal, both eyes and all related structures Sclera: sclerae normal P
[2023-08-11 08:00] VITALS: O2SAT 94
[2023-08-11 08:01] LABS: Glucose Point of Care 81 mg/dl (65-105)
[2023-08-11 08:11] VITALS: PULSE 81
[2023-08-11] MEDS: METOPROLOL TARTRATE 12.5 MG TABLET PO (08:11)
[2023-08-11] MEDS: ASPIRIN 81 MG ENTERIC TABLET PO (08:11)
[2023-08-11] MEDS: MULTIVITAMINS /C LUTEIN (CENTRUM SILVER) TABLET *BKC 1 TAB PO (08:11)
[2023-08-11] MEDS: ASCORBIC ACID 500 MG TABLET PO (08:11)
[2023-08-11 08:12] VITALS: PULSE 81
[2023-08-11] MEDS: FUROSEMIDE 40 MG TABLET PO (08:12)
[2023-08-11] MEDS: FERROUS SULFATE 325 MG TABLET DR BY MOUTH (08:12)
[2023-08-11] MEDS: METOPROLOL TARTRATE 25 MG TABLET PO (08:12)
[2023-08-11] MEDS: FLUoxetine HCL 10 MG CAPSULE PO (08:12)
[2023-08-11] MEDS: MAGNESIUM SULFATE 3GM/D5W100ML 3 GM/100 ML BAG IVPB (08:13)
[2023-08-11] MEDS: ONDANSETRON INJ 4 MG/2 ML VIAL IV PUSH (11:25)
[2023-08-11 11:33] LABS: SARS-CoV-2 RNA PCR Negative (Negative)
[2023-08-11 11:38] LABS: Glucose Point of Care 160 mg/dl (65-105)
== END 2023-08-11 12:25 | DRG 698 ==
LOC: ANHED 16:45 → ANH3MEDSUR 17:36
PROVIDERS: Student in an Organized Health Care Education/Training Program; Admitting Provider Internal Medicine; Emergency Provider Emergency Medicine; PCP Internal Medicine; Visit Provider Nurse Practitioner
DX: T83.511A Infection and inflammatory reaction due to indwelling urethral catheter, initial encounter (principal); J96.02 Acute respiratory failure with hypercapnia; G93.49 Other encephalopathy; N39.0 Urinary tract infection, site not specified; I50.9 Heart failure, unspecified; I25.10 Atherosclerotic heart disease of native coronary artery without angina pectoris; I27.20 Pulmonary hypertension, unspecified; I11.0 Hypertensive heart disease with heart failure; J44.9 Chronic obstructive pulmonary disease, unspecified; E87.6 Hypokalemia; E11.40 Type 2 diabetes mellitus with diabetic neuropathy, unspecified; D50.9 Iron deficiency anemia, unspecified; L89.152 Pressure ulcer of sacral region, stage 2; K56.41 Fecal impaction; K21.9 Gastro-esophageal reflux disease without esophagitis; K74.60 Unspecified cirrhosis of liver; I48.0 Paroxysmal atrial fibrillation; K43.9 Ventral hernia without obstruction or gangrene; N40.0 Benign prostatic hyperplasia without lower urinary tract symptoms; M48.00 Spinal stenosis, site unspecified; M19.90 Unspecified osteoarthritis, unspecified site; G89.29 Other chronic pain; Z20.822 Contact with and (suspected) exposure to COVID-19; Z11.52 Encounter for screening for COVID-19; G47.33 Obstructive sleep apnea (adult) (pediatric); F48.2 Pseudobulbar affect; Z96.89 Presence of other specified functional implants; Z79.4 Long term (current) use of insulin; Z86.73 Personal history of transient ischemic attack (TIA), and cerebral infarction without residual deficits; I25.2 Old myocardial infarction; Z99.81 Dependence on supplemental oxygen; Z87.891 Personal history of nicotine dependence; Z74.01 Bed confinement status; L89.620 Pressure ulcer of left heel, unstageable
CPT/HCPCS: 36415; 36600; 70450; 71260; 74177; 80048; 80053; 81001; 82805; 82948; 83605; 83690; 83735; 83880; 84484; 85025; 85610; 85730; 87040; 87086; 87493; 87635; 87637; 93005; 96365; 99285; A9270; J0696; J1885; J2185; J2405; J3475; J3480; J7040; J7120; Q9967

== ENCOUNTER 2023-08-27 13:40 | Observation (INO) | payer MEDICARE, MEDICAID, SELFPAY ==
[2023-08-27] VITALS (9 sets, daily range): BP systolic 111–125; BP diastolic 57–95; PULSE 64–84; RESP 17–24; TEMP 36.1–36.4; O2SAT 97–100
--- NOTE | ~2023-08-27 | XR_ITS ---
XR chest 2V 08/27/2023 14:13 Indication: Shortness of breath and chest pain Procedure: 2 view chest Comparison: Comparison to multiple prior studies sequentially, with oldest reviewed study dated 08/13. Findings: Borderline heart size. Layering right pleural effusion. Small left pleural effusion. Mild i nterstitial edema. Severe degenerative changes of the glenohumeral joints. Impression: 1: Mild interstitial edema with bilateral pleural effusions. Reviewed, dictated and finalized at location B. Impression: 1: Mild interstitial edema with bilateral pleural effusions.
--- NOTE | 2023-08-27 13:52 | ECG_ITS ---
Test Date: 2023-08-27 13:47:50 Measurements Intervals Martin Rate: 78 P: 0 [place]: 0 QRS: -72 QRSD: 101 T: 168 QT: 467 QTc: 534 Interpretive Statements POOR QUALITY ECG, DIFFICULT INTERPRETATION ATRIAL FIBRILLATION LOW QRS VOLTAGE IN EXTREMITY LEADS [QRS DEFLECTION < 0.5 mV IN LIMB LEADS] INTRAVENTRICULAR CONDUCTION DELAY ABNORMAL ECG No previous ECG available for comparison Electronically Signed On 08-28-2023 06:59:17 CDT by Edward Santo M.D.
[2023-08-27 15:53] LABS: Basophils Percent Auto 0.3 % (0.2-1.2); Eosinophils Percent Auto 0.2 % (0-4.4); Hematocrit 38.5 % (42.0-52.0); Immature Granulocyte Absolute 0.05 K/mm3 (0.00-0.031); Immature Granulocyte Percent A 0.5 % (0-0.5); Lymphocytes Absolute Auto 0.67 K/mm3 (0.9-3.2); Lymphocytes Percent Auto 6.7 % (18.3-44.2); Mean Corpuscular HGB Conc 31.2 g/dl (32-36); Mean Corpuscular Hemoglobin 26.9 pg (26-34); Mean Corpuscular Volume 86.3 fl (80-100); Mean Platelet Volume 10.3 fl (7.4-10.4); Monocytes Absolute Auto 0.8 K/mm3 (0.1-0.6); Monocytes Percent Auto 8.3 % (2.6-8.5); Neutrophils Absolute Auto 8.5 K/mm3 (1.3-6.7); Platelet Count Result 245 k/mm3 (150-375); Red Blood Count 4.46 M/mm3 (4.6-6.20); White Blood Count 10.1 K/mm3 (4.5-10.0)
[2023-08-27 16:03] LABS: Alanine Aminotransferase 16 U/L (6-50); Albumin Level 2.9 g/dL (3.5-5.1); Alkaline Phosphatase 224 U/L (38-126); Anion Gap 4 mmol/L (4-12); Aspartate Amino Transferase 28 U/L (17-59); Bilirubin,Total 0.8 mg/dL (0.2-1.3); Blood Urea Nitrogen 15 mg/dL (9-20); Calcium 8.2 mg/dL (8.4-10.2); Carbon Dioxide 38 mmol/L (22-30); Chloride 90 mmol/L (98-107); Estimated CRCL calculation 73 ml/min; Estimated Glomerular Filt Rate > 60; Glucose 112 mg/dL (65-110); Potassium 2.9 mmol/L (3.4-5.0); Sodium 132 mmol/L (137-145)
[2023-08-27 16:15] LABS: Troponin I 0.027 ng/mL (0.000-0.034)
[2023-08-27 16:56] LABS: NT Pro B Type Natriuretic Pept 7790 pg/mL (19.9-100)
[2023-08-27] MEDS: FUROSEMIDE INJ 40 MG/4 ML VIAL IV PUSH (17:07)
--- NOTE | 2023-08-27 17:52 | ED.SOB ---
HPI - SOB/Dyspnea General Chief Complaint: Shortness of Breath/Dyspnea Stated Complaint: chest pain Time Seen by Provider: 08/27/23 16:23 Source: EMS and RN notes reviewed Mode of arrival: EMS Limitations: dementia History of Present Illness HPI Narrative: 83-year-old with a history of advanced dementia, COPD on 3 L of home oxygen, CHF was brought in from long-term with complaints of shortness of breath. As per the EMS patient did not have any oxygen on and his SpO2 was 88% soon after they placed him back on it is up to 94% not much of history can be obtained from the patient. MD elicited complaint: shortness of breath Pertinent past history: COPD and congestive heart failure Severity: moderate Related Data Home Medications Medication Instructions Recorded Confirmed sennosides 8.6 mg-docusate sodium 1 tab-cap PO DAILY PRN Constipation 06/08/22 08/06/23 50 mg capsule acetaminophen 650 mg tablet 325 mg PO Q6H PRN Pain 06/01/23 08/06/23 ipratropium 0.5 mg-albuterol 3 mg 3 ml inhalation QID PRN Shortness 06/01/23 08/06/23 (2.5 mg base)/3 mL nebulization Of Breath Or Wheezing soln metoprolol tartrate 37.5 mg tablet 37.5 mg PO BID 06/01/23 08/06/23 fluoxetine 10 mg capsule 10 mg PO DAILY 07/11/23 08/06/23 Zinc-50 50 mg PO DAILY 07/27/23 08/06/23 ascorbic acid (vitamin C) 500 mg 500 mg PO DAILY 07/27/23 08/06/23 tablet bisacodyl 10 mg rectal suppository 10 mg RECTAL DAILY PRN Constipation 07/27/23 08/06/23 guaifenesin 600 mg tablet, 600 mg PO Q12H PRN Congestion 07/27/23 08/06/23 extended release 12 hr insulin lispro 200 unit/mL (3 mL) 1 sliding scale dose subcut 07/27/23 08/06/23 subcutaneous pen USEASDIRECTD ipratropium 0.5 mg-albuterol 3 mg 3 ml inhalation QID 07/27/23 08/06/23 (2.5 mg base)/3 mL nebulization soln linaclotide 145 mcg capsule 145 mcg PO DAILY 07/27/23 08/06/23 (Linzess) loperamide 2 mg capsule 2 mg PO Q4H PRN Diarrhea 07/27/23 08/06/23 magnesium citrate (Citroma oral 300 ml PO DAILY PRN Constipation 07/27/23 08/06/23 solution) magnesium hydroxide 400 mg/5 mL 30 ml PO HS PRN Constipation 07/27/23 08/06/23 oral suspension (Milk of Magnesia) multivit with minerals-iron 18 1 tablet PO DAILY 07/27/23 08/06/23 mg-folic ac 400 mcg-vit K 25 mcg tablet (Adults Multivitamin) ondansetron HCl 4 mg tablet 4 mg PO Q6H PRN nausea and 07/27/23 08/06/23 vomitting Allergies Allergy/AdvReac Type Severity Reaction Status Date / Time No Known Allergies Allergy Verified 08/05/23 22:23 Review of Systems Review of Systems: ROS unobtainable: Yes unobtainable due to medical condition PMFSH Past Medical History Medical History Arthritis Atrial flutter Benign prostatic hyperplasia Cerebrovascular accident 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 Chronic anemia Chronic obstructive pulmonary disease Chronic pain Patient had a pain pump inserted in February 2019. Chronic respiratory failure with hypoxia, on home oxygen therapy Baseline oxygen requirement is 3 L nasal cannula. Congestive heart failure Echocardiogram February 2021: EF 55-60% (improved from prior echo of 45%) left ventricular septal wall motion abnormal related to bundle-branch block, grade 2 diastolic dysfunction, severe pulmonary hypertension with RVSP of 74, severe enlargement of the right atrium Coronary artery disease Diabetic neuropathy Gastroesophageal reflux disease History of bleeding peptic ulcer History of myocardial infarction Hypertension Iron deficiency anemia Receives frequent iron infusions. Liver cirrhosis Moderate pulmonary hypertension Estimated pulmonary arterial systolic pressure was 54 mmHg on echocardiogram dated 10/25/2020. Obstructive sleep apnea Paroxysmal atrial fibrillation Pseudobulbar affect Spinal stenosis Type 2 diabetes mellitus Hemoglobin A1c was 6.3% on 10/25/2020. Surgical History Surgical
[2023-08-27 18:45] LABS: Glucose Point of Care 107 mg/dl (65-105)
--- NOTE | 2023-08-27 18:55 | PM.IMHP ---
H&P: HPI History of Present Illness Date/Time: 08/27/23 18:55 Chief Complaint: Hypoxia Narrative: 83 y/o M presents here with hypoxia and shortness of breath with PMH of atrial flutter, CVA, chronic anemia, COPD, chronic respiratory failure with hypoxia on home O2 (baseline requirement 3L), CHF, CAD, GERD, [place], HTN, IgA, liver cirrhosis, moderate pulmonary hypertension, MALLORY, paroxysmal AFib, and diabetes. The patient presents here via EMS from [facility] for further evaluation of shortness of breath and hypoxia. Per EMS report to the emergency department, upon their arrival patient was 89% on room air. Patient was placed back on his 3 L nasal cannula baseline O2 requirement, and sat increased to 96%. detention reported that he was started on antibiotics yesterday for pneumonia, unclear which ABX. Per chart review, patient has been admitted frequently this year: 06/01-06/07 for AMS and dx with community acquired PNA, 07/09-07/11 for abdominal pain and dx with fecal impaction, stercoral colitis and pneumonia, 07/26-07/30 for AMS and dx with pneumonia and a pleural effusion, 08/04-08/10 for AMS and hypotension dx with UTI and fecal impaction. Per chart review patient's baseline orientation appears to be A&O x2, however this appears to wax and wane specifically with infections. The patient is currently reporting feeling cold, shortness of breath, and body aches. States the shortness of breath worsened around 4 am. Denying fever. Patient's family uncomfortable with patient being sent back to [place] and requested admission for observation. Initial VS at presentation: 97.6? F, HR 80, RR 17, 111/64, and 100% on 3L NC. ED workup showed: WBC 10.1, hemoglobin 12.0, sodium 132, potassium 2.9, creatinine 0.6 and GFR >60, initial troponin 0.027, BNP 7790. CXR showed mild interstitial edema with bilateral pleural effusions. Review of Systems Review of Systems: Limited due to mental status PMFSH Past Medical History Medical History Arthritis Atrial flutter Benign prostatic hyperplasia Cerebrovascular accident 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 Chronic anemia Chronic obstructive pulmonary disease Chronic pain Patient had a pain pump inserted in February 2019. Chronic respiratory failure with hypoxia, on home oxygen therapy Baseline oxygen requirement is 3 L nasal cannula. Congestive heart failure Echocardiogram February 2021: EF 55-60% (improved from prior echo of 45%) left ventricular septal wall motion abnormal related to bundle-branch block, grade 2 diastolic dysfunction, severe pulmonary hypertension with RVSP of 74, severe enlargement of the right atrium Coronary artery disease Diabetic neuropathy Gastroesophageal reflux disease History of bleeding peptic ulcer History of myocardial infarction Hypertension Iron deficiency anemia Receives frequent iron infusions. Liver cirrhosis Moderate pulmonary hypertension Estimated pulmonary arterial systolic pressure was 54 mmHg on echocardiogram dated 10/25/2020. Obstructive sleep apnea Paroxysmal atrial fibrillation Pseudobulbar affect Spinal stenosis Type 2 diabetes mellitus Hemoglobin A1c was 6.3% on 10/25/2020. Surgical History Surgical History History of bilateral cataract extraction History of bowel resection Dr Torres (2008) [place] and approx 2014 History of hernia repair 3 Family History Family History Father Acute myocardial infarction Sibling Acute myocardial infarction Brain aneurysm Other No problems noted. Mother Breast cancer Social History Social History Social History: Healthcare power of insurance defense attorney: Lennie Cruz, granddaughter. Code status: Full code. Smoking packs per day: 3 Smoking cigar
[2023-08-27] MEDS: POTASSIUM CHLORIDE INJ 40 MEQ in SODIUM CHLORIDE 0.9% IV 500 ML 130 MEQ IVPB (19:54)
[2023-08-27] MEDS: IPRATROPIUM 0.5 MG/ALBUTEROL SULFATE 2.5 MG AMPUL.NEB 3 ML INHALATION (21:24)
--- NOTE | 2023-08-27 21:51 | ADMGEN ---
This patient, Zack Orellana, was admitted to Medical Room 341-01. Patient/family oriented to hospital policies and general routines including ID bracelet, bed and alarms, visiting hours, pain management, procedures, bathroom and other care routines, personal items, smoking policy, room service/diet, and visiting hours. Information on how to activate the Rapid Response Team has been discussed. Patient/Family are encouraged to report perceived risks to care and to ask questions if they do not understand what they are told or what they should do.
[2023-08-27 23:30] LABS: Appearance Urine Cloudy (Clear); Bacteria Urine None Seen /hpf; Bilirubin Urine Negative (Negative); Blood Urine 3+ (Negative); Color Urine Yellow (Yellow); Glucose Urine UA Negative (Negative); Ketones Urine Trace mg/dL (Negative); Leukocyte Esterase Ur 3+ LEU/UL (Negative); Nitrate Urine Negative (Negative); Protein Urine 1+ mg/dL (Negative); RBC Urine 51-100 /hpf (0-2); Specific Grav Ur 1.008 (1.001-1.035); Squamous Epithelial Cell Urine None Seen /hpf (Few); Urobilinogen Urine 0.2 mg/dL (<2.0); WBC Urine >100 /hpf (0-3); pH Urine 7.5 (5.0-9.0)
[2023-08-27 23:31] LABS: Add Urine Microscopic? YES
[2023-08-28] VITALS (19 sets, daily range): BP systolic 100–121; BP diastolic 47–68; PULSE 64–87; RESP 16–20; TEMP 35.9–36.7; O2SAT 96–100; BMI 22.4
[2023-08-28 00:26] LABS: Glucose Point of Care 102 mg/dl (65-105)
[2023-08-28] MEDS: IPRATROPIUM 0.5 MG/ALBUTEROL SULFATE 2.5 MG AMPUL.NEB 3 ML INHALATION ×3 (03:17→19:36)
[2023-08-28] MEDS: traMADol HCL (*CRX) 50 MG TABLET PO ×2 (05:44→12:23)
[2023-08-28 06:03] LABS: Basophils Percent Auto 0.4 % (0.2-1.2); Eosinophils Absolute Auto 0.1 K/mm3 (0-0.3); Eosinophils Percent Auto 0.7 % (0-4.4); Hemoglobin 12.5 g/dL (14.0-18.0); Immature Granulocyte Absolute 0.04 K/mm3 (0.00-0.031); Immature Granulocyte Percent A 0.5 % (0-0.5); Lymphocytes Absolute Auto 0.89 K/mm3 (0.9-3.2); Lymphocytes Percent Auto 11.7 % (18.3-44.2); Mean Corpuscular HGB Conc 32.1 g/dl (32-36); Mean Corpuscular Hemoglobin 27.7 pg (26-34); Mean Corpuscular Volume 86.5 fl (80-100); Mean Platelet Volume 10.3 fl (7.4-10.4); Monocytes Absolute Auto 0.9 K/mm3 (0.1-0.6); Monocytes Percent Auto 11.2 % (2.6-8.5); Neutrophils Absolute Auto 5.8 K/mm3 (1.3-6.7); Neutrophils Percent Auto 75.5 % (45.5-73.1); Platelet Count Result 223 k/mm3 (150-375); Red Blood Count 4.51 M/mm3 (4.6-6.20); Red Cell Distribution Width 18.5 % (11.5-14.5); White Blood Count 7.6 K/mm3 (4.5-10.0)
[2023-08-28 06:04] LABS: Glucose Point of Care 98 mg/dl (65-105)
[2023-08-28 06:21] LABS: Alanine Aminotransferase 14 U/L (6-50); Albumin Level 2.9 g/dL (3.5-5.1); Alkaline Phosphatase 202 U/L (38-126); Anion Gap 9 mmol/L (4-12); Aspartate Amino Transferase 26 U/L (17-59); Bilirubin,Total 0.7 mg/dL (0.2-1.3); Blood Urea Nitrogen 15 mg/dL (9-20); CRP 1.1 mg/dL (<1.0); Carbon Dioxide 37 mmol/L (22-30); Chloride 91 mmol/L (98-107); Estimated CRCL calculation 62 ml/min; Estimated Glomerular Filt Rate > 60; Glucose 92 mg/dL (65-110); Magnesium 1.2 mg/dL (1.6-2.3); Phosphorus 3.7 mg/dL (2.5-4.5); Potassium 3.2 mmol/L (3.4-5.0); Sodium 137 mmol/L (137-145)
[2023-08-28] MEDS: LINACLOTIDE 145 MCG CAPSULE PO (08:54)
[2023-08-28] MEDS: MULTIVITAMINS /C LUTEIN (CENTRUM SILVER) TABLET *BKC 1 TAB PO (08:54)
[2023-08-28 08:55] LABS: Glucose Point of Care 108 mg/dl (65-105)
[2023-08-28] MEDS: FUROSEMIDE 40 MG TABLET PO (08:55)
[2023-08-28] MEDS: SENNA/DOCUSATE SODIUM TABLET 1 TAB PO (08:55)
[2023-08-28] MEDS: FERROUS SULFATE 325 MG TABLET DR BY MOUTH ×2 (08:55→16:50)
[2023-08-28] MEDS: METOPROLOL TARTRATE 25 MG TABLET PO ×2 (08:55→20:42)
[2023-08-28] MEDS: METOPROLOL TARTRATE 12.5 MG TABLET PO ×2 (08:55→20:42)
[2023-08-28] MEDS: ASCORBIC ACID 500 MG TABLET PO (08:55)
[2023-08-28] MEDS: FLUoxetine HCL 10 MG CAPSULE PO (08:56)
[2023-08-28] MEDS: ZINC SULFATE 220 MG CAPSULE PO (08:56)
[2023-08-28] MEDS: ACETAMINOPHEN 325 MG TABLET 650 MG PO (09:06)
--- NOTE | 2023-08-28 09:32 | PCRCNOTE ---
Window of time for administration has passed. See next scheduled administration.
[2023-08-28 12:13] LABS: Glucose Point of Care 116 mg/dl (65-105)
--- NOTE | 2023-08-28 15:27 | PM.IMPN ---
Progress Note: A&P Assessment and Plan (1) Acute on chronic respiratory failure with hypoxia and hypercapnia: Code(s): J96.21 - Acute and chronic respiratory failure with hypoxia; J96.22 - Acute and chronic respiratory failure with hypercapnia Status: Acute Assessment and Plan: 08/27/23: - CXR: Mild interstitial edema with bilateral pleural effusions. - currently requiring baseline supplemental O2, 3L NC - euvolemic to dry on exam - suspect SOB/hypoxia due to noncompliance with NC 08/28/23: Currently on 3 L nasal cannula which is his baseline (2) CHF (congestive heart failure): Qualifiers: Heart failure chronicity: acute on chronic Heart failure type: combined systolic and diastolic Qualified Code(s): I50.43 - Acute on chronic combined systolic (congestive) and diastolic (congestive) heart failure Code(s): I50.9 - Heart failure, unspecified Status: Acute Assessment and Plan: 08/27/23 - BNP 7790, has ranged between 4357-7746 since May - most recent echo (07/2023): Systolic function moderately globally reduced, diastolic function abnormal, and EF estimated at 35-40%. See report for details. - currently on: Lasix 40 mg p.o. daily - daily weights and monitor I&Os - trend renal function 08/28/23: Continue Lasix (3) Hypokalemia: Code(s): E87.6 - Hypokalemia Status: Acute Assessment and Plan: 08/27/23: - K 2.9 - replete with 40 p.o. and 40 IVPB of KCl, recheck - telemetry monitoring 08/28/23: Potassium 3.2 Will give another 40 mEq of potassium Continue telemetry monitoring (4) Hypomagnesemia: Code(s): E83.42 - Hypomagnesemia Status: Acute Assessment and Plan: 08/28/23: Magnesium 1.2 Will give 4 g of magnesium now Recheck magnesium in the morning (5) Decubitus ulcer of sacral region, stage 2: Code(s): L89.152 - Pressure ulcer of sacral region, stage 2 Status: Chronic Assessment and Plan: 08/27/23 - stage 2 pressure wound to sacral region - stage 2 pressure wound to left heel - wound consult - frequent turning, wound care 08/28/23: No change to current treatment plan (6) Type 2 diabetes mellitus: Qualifiers: Diabetes mellitus complication status: without complication Diabetes mellitus joint terminal attack controller insulin use: without joint terminal attack controller use Qualified Code(s): E11.9 - Type 2 diabetes mellitus without complications Code(s): E11.9 - Type 2 diabetes mellitus without complications Status: Chronic Assessment and Plan: 08/27/23: - hypoglycemia protocol - POC blood glucose ACHS - home medications resumed - correct regimen ordered - low dose TIDWM and HS - A1C 6.4% on 07/26/2023 08/28/23: Blood sugar ranging 92-116 Hemoglobin A1c 6.4 Accu-Cheks and HS Home medication resumed Low-dose sliding scale insulin ordered Hypoglycemic protocol in place Diabetic diet Time Spent With Patient Time with patient: Greater than 35 minutes Subjective Date/time seen: 08/28/23 15:27 Interval history: This is an 83-year-old male presented to the hospital via EMS on 08/27/2023 with hypoxia and shortness of breath. Patient initially presented with an SpO2 of 88% on room air however patient was supposed to be on 3 L of home O2 and after placing him back on the home O2 his oxygen sat improved to 94%. Workup in the hospital included a chest x-ray which showed mild interstitial edema with bilateral pleural effusions. 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 Initial labs shown a white blood cell count of 10.1, hemoglobin 12.0, sodium 132, potassium 2.9, chloride 90, alk-phos 224, proBNP 7790. UA was obtained which showed 1+ urine protein, trace urine ketones, 3+ urine blood, 3+ leukocyte, 51-100 urine RBC, greater than 100 urine WBC. Urine culture is pending. Patient was given 40 mg
[2023-08-28] MEDS: KCL 40 MEQ/WATER 100 ML 100 ML 25 ML IVPB (15:58)
[2023-08-28] MEDS: MAGNESIUM SULF 4 GM/WATER100ML 4 GM/100 ML BAG IVPB (15:58)
[2023-08-28] MEDS: SODIUM CHLORIDE 0.9% IV 200 ML 50 ML IV CONT (16:48)
--- NOTE | 2023-08-28 17:20 | PC.NURSE ---
IV to right thumb edematous and jamaal, IV removed magnesium on hold until Potassium complete then will run in [facility]
[2023-08-28 17:45] LABS: Glucose Point of Care 128 mg/dl (65-105)
[2023-08-29] VITALS (10 sets, daily range): BP systolic 90–121; BP diastolic 60; PULSE 55–74; RESP 16–20; TEMP 36.6; O2SAT 96–100
[2023-08-29 05:37] LABS: Glucose Point of Care 121 mg/dl (65-105)
[2023-08-29 05:42] LABS: Hematocrit 39.6 % (42.0-52.0); Hemoglobin 12.4 g/dL (14.0-18.0); Mean Corpuscular HGB Conc 31.3 g/dl (32-36); Mean Corpuscular Hemoglobin 27.6 pg (26-34); Mean Platelet Volume 10.3 fl (7.4-10.4); Platelet Count Result 251 k/mm3 (150-375); Red Cell Distribution Width 18.2 % (11.5-14.5); White Blood Count 13.5 K/mm3 (4.5-10.0)
[2023-08-29 05:55] LABS: Alanine Aminotransferase 14 U/L (6-50); Alkaline Phosphatase 217 U/L (38-126); Anion Gap 5 mmol/L (4-12); Aspartate Amino Transferase 24 U/L (17-59); Bilirubin,Total 0.8 mg/dL (0.2-1.3); Blood Urea Nitrogen 13 mg/dL (9-20); Calcium 8.1 mg/dL (8.4-10.2); Carbon Dioxide 37 mmol/L (22-30); Chloride 93 mmol/L (98-107); Estimated CRCL calculation 84 ml/min; Estimated Glomerular Filt Rate > 60; Glucose 90 mg/dL (65-110); Magnesium 2.1 mg/dL (1.6-2.3); Potassium 3.1 mmol/L (3.4-5.0); Sodium 135 mmol/L (137-145)
[2023-08-29] MEDS: IPRATROPIUM 0.5 MG/ALBUTEROL SULFATE 2.5 MG AMPUL.NEB 3 ML INHALATION ×3 (07:24→14:28)
[2023-08-29 09:19] LABS: Glucose Point of Care 97 mg/dl (65-105)
[2023-08-29] MEDS: METOPROLOL TARTRATE 12.5 MG TABLET PO (09:25)
[2023-08-29] MEDS: LINACLOTIDE 145 MCG CAPSULE PO (09:26)
[2023-08-29] MEDS: MULTIVITAMINS /C LUTEIN (CENTRUM SILVER) TABLET *BKC 1 TAB PO (09:26)
[2023-08-29] MEDS: ZINC SULFATE 220 MG CAPSULE PO (09:26)
[2023-08-29] MEDS: ASCORBIC ACID 500 MG TABLET PO (09:26)
[2023-08-29] MEDS: SENNA/DOCUSATE SODIUM TABLET 1 TAB PO (09:26)
[2023-08-29] MEDS: FUROSEMIDE 40 MG TABLET PO (09:27)
[2023-08-29] MEDS: FLUoxetine HCL 10 MG CAPSULE PO (09:27)
[2023-08-29] MEDS: FERROUS SULFATE 325 MG TABLET DR BY MOUTH ×2 (09:27→17:47)
[2023-08-29] MEDS: METOPROLOL TARTRATE 25 MG TABLET PO (09:28)
--- NOTE | 2023-08-29 10:11 | PM.DS ---
DS: Admitting Diagnosis Discharge Date 08/29/23 Admitting Diagnosis acute on chronic respiratory failure with hypoxia and hypercapnia CHF hypokalemia decubitus ulcer of sacral region stage II type 2 diabetes mellitus DS: Discharge Diagnosis Discharge Diagnosis (1) Acute on chronic respiratory failure with hypoxia and hypercapnia: Code(s): J96.21 - Acute and chronic respiratory failure with hypoxia; J96.22 - Acute and chronic respiratory failure with hypercapnia Status: Acute (2) CHF (congestive heart failure): Qualifiers: Heart failure chronicity: acute on chronic Heart failure type: combined systolic and diastolic Qualified Code(s): I50.43 - Acute on chronic combined systolic (congestive) and diastolic (congestive) heart failure Code(s): I50.9 - Heart failure, unspecified Status: Acute (3) Hypokalemia: Code(s): E87.6 - Hypokalemia Status: Acute (4) Hypomagnesemia: Code(s): E83.42 - Hypomagnesemia Status: Acute (5) Decubitus ulcer of sacral region, stage 2: Code(s): L89.152 - Pressure ulcer of sacral region, stage 2 Status: Chronic (6) Type 2 diabetes mellitus: Qualifiers: Diabetes mellitus complication status: without complication Diabetes mellitus senior living insulin use: without senior living use Qualified Code(s): E11.9 - Type 2 diabetes mellitus without complications Code(s): E11.9 - Type 2 diabetes mellitus without complications Status: Chronic DS: Summary Hospital Course Reason for hospitalization: acute on chronic respiratory failure with hypoxia and hypercapnia CHF hypokalemia decubitus ulcer of sacral region stage II type 2 diabetes mellitus Hospital Course: This is an 83-year-old male presented to the hospital via EMS on 08/27/2023 with hypoxia and shortness of breath. Patient initially presented with an SpO2 of 88% on room air however patient was supposed to be on 3 L of home O2 and after placing him back on the home O2 his oxygen sat improved to 94%. Workup in the hospital included a chest x-ray which showed mild interstitial edema with bilateral pleural effusions. 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 Initial labs shown a white blood cell count of 10.1, hemoglobin 12.0, sodium 132, potassium 2.9, chloride 90, alk-phos 224, proBNP 7790. UA was obtained which showed 1+ urine protein, trace urine ketones, 3+ urine blood, 3+ leukocyte, 51-100 urine RBC, greater than 100 urine WBC. Urine culture is pending. Patient was given 40 mg IV push of Lasix, 80 mEq of potassium while in the ED. On examination today patient is alert and oriented x2. Patient denies any fever, chills, nausea, vomiting, abdominal pain, chest pain, or shortness of breath. Patient endorses diarrhea. Labs today shown a white blood cell count of 7.6, hemoglobin 12.5, potassium 3.2, chloride 91, magnesium 1.2, alk-phos 202, C reactive protein 1.1. We will give 4 g of magnesium and 40 mEq of potassium now. 08/29/23: Patient denies any new complaints at this time. WBC 13.5, Hgb 12.4, Na+ 135, K+ 3.1, Chloride 93. He was given 40 meq of KCL today. Patient is stable for discharge at this time. final diagnosis: acute on chronic respiratory failure with hypoxia and hypercapnia, hypokalemia, hypomagnesemia Status at Discharge Cognitive/behavioral status at discharge: alert and oriented times 3 Functional status at discharge: uses cane/walker Overall status at discharge: patient is progressing back to baseline Time Spent with Patient Time attestation: Total time spent providing and/or coordinating discharge services: Time spent: Greater than 30 minutes Exam Narrative: General: In no acute distress, well nourished Head: atraumatic, no encephalopathy Eyes: EOMI, PERRLA, sclera clear ENT: moist mucous membranes, nasal passages clear
[2023-08-29] MEDS: POTASSIUM CHLORIDE 20 MEQ ER TABLET 40 MEQ PO (10:34)
[2023-08-29 12:16] LABS: Glucose Point of Care 212 mg/dl (65-105)
[2023-08-29] MEDS: INSULIN ASPART (*BKC) 100 UNITS/ML SUB-Q (12:56)
[2023-08-29] MEDS: ACETAMINOPHEN 325 MG TABLET 650 MG PO (17:46)
[2023-08-29] MEDS: POTASSIUM CHLORIDE 20 MEQ PACKET (FOR LIQUID) 40 MEQ PO (17:47)
[2023-08-29 17:55] LABS: Glucose Point of Care 144 mg/dl (65-105)
== END 2023-08-29 18:25 | disposition home or self-care (01) ==
LOC: ANHED 18:01 → ANH3MED 21:50 → ANH3MEDSUR 08-31 08:37
PROVIDERS: Student in an Organized Health Care Education/Training Program; Admitting Provider Internal Medicine; Emergency Provider Family Medicine; PCP Internal Medicine; Visit Provider Nurse Practitioner Acute Care
DX: J96.21 Acute and chronic respiratory failure with hypoxia (principal); J96.22 Acute and chronic respiratory failure with hypercapnia; I50.43 Acute on chronic combined systolic (congestive) and diastolic (congestive) heart failure; E87.6 Hypokalemia; L89.152 Pressure ulcer of sacral region, stage 2; L89.622 Pressure ulcer of left heel, stage 2; E83.42 Hypomagnesemia; F03.90 Unspecified dementia, unspecified severity, without behavioral disturbance, psychotic disturbance, mood disturbance, and anxiety; J44.9 Chronic obstructive pulmonary disease, unspecified; Z99.81 Dependence on supplemental oxygen; I50.9 Heart failure, unspecified; I25.10 Atherosclerotic heart disease of native coronary artery without angina pectoris; E11.40 Type 2 diabetes mellitus with diabetic neuropathy, unspecified; K21.9 Gastro-esophageal reflux disease without esophagitis; D64.9 Anemia, unspecified; N40.0 Benign prostatic hyperplasia without lower urinary tract symptoms; D50.9 Iron deficiency anemia, unspecified; I25.2 Old myocardial infarction; K74.60 Unspecified cirrhosis of liver; I27.20 Pulmonary hypertension, unspecified; I48.0 Paroxysmal atrial fibrillation; G47.33 Obstructive sleep apnea (adult) (pediatric); G89.29 Other chronic pain; Z79.51 Long term (current) use of inhaled steroids; Z79.4 Long term (current) use of insulin; Z86.73 Personal history of transient ischemic attack (TIA), and cerebral infarction without residual deficits; Z87.891 Personal history of nicotine dependence; Z79.82 Long term (current) use of aspirin
CPT/HCPCS: 36415; 71046; 80053; 81001; 82948; 83735; 83880; 84100; 84484; 85025; 85027; 86140; 87077; 87086; 87088; 93005; 94640; 96365; 96366; 96368; 96375; 99285; A9270; G0378; J1815; J1940; J3475; J3480; J7040; J7050

== ENCOUNTER 2023-09-16 17:05 | Inpatient (IN) | payer MEDICARE, MEDICAID, SELFPAY ==
--- NOTE | ~2023-09-16 | XR_ITS ---
XR chest 1V portable Ordering provider: Jonathan Willams MD History: 83 years Male with . Infection . Comparison: August 27, 2023 FINDINGS: MEDIASTINUM: The cardiac silhouette is slightly enlarged. Congestive josie. LUNGS: Opacification of the right lung base suggestive of pneumonia. No effusion or pneumothorax. OTHER: No free air under the diaphragm. Bilateral shoulder osteoarthritic changes. IMPRESSION: Right basal pneumonia. Reviewed, dictated and finalized at location A. IMPRESSION: Right basal pneumonia.
[2023-09-16 17:03] VITALS: BP 107/67; PULSE 97; RESP 12; TEMP 36.4; O2SAT 97
[2023-09-16 17:58] LABS: Hematocrit 37.2 % (42.0-52.0); Hemoglobin 11.7 g/dL (14.0-18.0); Mean Corpuscular HGB Conc 31.5 g/dl (32-36); Mean Corpuscular Hemoglobin 28.1 pg (26-34); Mean Corpuscular Volume 89.2 fl (80-100); Mean Platelet Volume 10.4 fl (7.4-10.4); Platelet Count Result 290 k/mm3 (150-375); Red Blood Count 4.17 M/mm3 (4.6-6.20); Red Cell Distribution Width 17.1 % (11.5-14.5); White Blood Count 16.3 K/mm3 (4.5-10.0)
[2023-09-16 18:14] LABS: Alanine Aminotransferase 15 U/L (6-50); Albumin Level 3.2 g/dL (3.5-5.1); Alkaline Phosphatase 256 U/L (38-126); Aspartate Amino Transferase 25 U/L (17-59); Blood Urea Nitrogen 25 mg/dL (9-20); Calcium 8.1 mg/dL (8.4-10.2); Carbon Dioxide > 40 mmol/L (22-30); Chloride 77 mmol/L (98-107); Estimated CRCL calculation 66 ml/min; Estimated Glomerular Filt Rate > 60; Glucose 193 mg/dL (65-110); Magnesium 1.3 mg/dL (1.6-2.3); Sodium 134 mmol/L (137-145)
[2023-09-16 18:31] LABS: Band Neutrophils Percent 1 % (0-6); Lymphocytes Absolute Manual 1.14 K/mm3 (1.1-4.5); Monocytes Percent Manual 8 % (3-9); Neutrophils Absolute Manual 13.85 K/mm3 (1.3-6.7); Neutrophils Percent Manual 84 % (46-73); Platelet Estimate Adequate (Adequate); Total Cells Counted 100
[2023-09-16 18:32] LABS: Anisocytosis 2+; Hypochromasia 1+; Schistocytes None Seen
--- NOTE | 2023-09-16 19:11 | ECG_ITS ---
Test Date: 2023-09-16 19:36:49 Measurements Intervals [place] Rate: 77 P: 0 ID: 0 QRS: 2 QRSD: 110 T: -57 QT: 404 QTc: 458 Interpretive Statements POOR QUALITY ECG, DIFFICULT INTERPRETATION PROBABLY ATRIAL FIBRILLATION INTRAVENTRICULAR CONDUCTION DELAY LOW QRS VOLTAGE IN LIMB LEADS ANTEROSEPTAL INFARCT, AGE INDETERMINATE BASELINE ARTIFACT- I, II, III, AVR, AVL, AVF, V1-V6 ABNORMAL ECG Compared to ECG 08/27/2023 13:47:50 NO SIGNIFICANT CHANGE Electronically Signed On 09-16-2023 20:06:04 CDT by Waqas Shankar D.O.
[2023-09-16] MEDS: POTASSIUM CHLORIDE 20 MEQ PACKET (FOR LIQUID) 40 MEQ PO (19:27)
[2023-09-16] MEDS: MAGNESIUM SULF 2 GM/WATER 50ML 2 GM/50 ML BAG IVPB (19:31)
[2023-09-16] MEDS: KCL 20 MEQ/SW 100 ML 100 ML 50 MEQ IVPB (19:31)
[2023-09-16 19:37] VITALS: BP 122/76; PULSE 80; RESP 121; O2SAT 95
--- NOTE | 2023-09-16 19:55 | ED.RECABL ---
HPI - Recheck/Abnormal Lab/Rx General Chief Complaint: Recheck/Abnormal Lab/Rx Stated Complaint: ABN lab Time Seen by Provider: 09/16/23 18:59 Source: patient Limitations: no limitations History of Present Illness HPI narrative: Patient is an 83-year-old male presents to the emergency department from [facility] for an abnormal lab value. Patient reportedly had a low potassium of 2.3. Patient states that overall he feels okay. Review of systems patient admits to having a slight cough today that is productive yellow sputum, mild difficulty breathing. Patient denies chest pain, fever, diarrhea, vomiting, urinary discomfort, new numbness or weakness, confusion. Patient states he was told he might be developing a pneumonia on a recent x-ray a day or 2 ago. Patient typically wears 3 L of oxygen at baseline is on 5 L currently. Patient admits to mild dehydration. Patient admits to having chronic bilateral lower extremity motor deficits that are unchanged from baseline. Related Data Home Medications Medication Instructions Recorded Confirmed sennosides 8.6 mg-docusate sodium 1 tab-cap PO DAILY Constipation 06/08/22 09/16/23 50 mg capsule acetaminophen 650 mg tablet 325 mg PO Q6H PRN Pain (Scale 06/01/23 09/16/23 Score 1-3) ipratropium 0.5 mg-albuterol 3 mg 3 ml inhalation QID PRN Shortness 06/01/23 09/16/23 (2.5 mg base)/3 mL nebulization Of Breath Or Wheezing soln metoprolol tartrate 37.5 mg tablet 37.5 mg PO BID 06/01/23 09/16/23 fluoxetine 10 mg capsule 10 mg PO DAILY 07/11/23 09/16/23 Zinc-50 50 mg PO DAILY 07/27/23 09/16/23 ascorbic acid (vitamin C) 500 mg 500 mg PO DAILY 07/27/23 09/16/23 tablet bisacodyl 10 mg rectal suppository 10 mg RECTAL DAILY PRN Constipation 07/27/23 09/16/23 guaifenesin 600 mg tablet, 600 mg PO Q12H Congestion 07/27/23 09/16/23 extended release 12 hr insulin lispro 200 unit/mL (3 mL) 1 sliding scale dose subcut 07/27/23 09/16/23 subcutaneous pen USEASDIRECTD ipratropium 0.5 mg-albuterol 3 mg 3 ml inhalation QID 07/27/23 09/16/23 (2.5 mg base)/3 mL nebulization soln loperamide 2 mg capsule 2 mg PO Q4H PRN Diarrhea 07/27/23 09/16/23 magnesium citrate (Citroma oral 300 ml PO DAILY PRN Constipation 07/27/23 09/16/23 solution) magnesium hydroxide 400 mg/5 mL 30 ml PO HS PRN Constipation 07/27/23 09/16/23 oral suspension (Milk of Magnesia) multivit with minerals-iron 18 1 tablet PO DAILY 07/27/23 09/16/23 mg-folic ac 400 mcg-vit K 25 mcg tablet (Adults Multivitamin) ondansetron HCl 4 mg tablet 4 mg PO Q6H PRN nausea and 07/27/23 09/16/23 vomitting silver sulfadiazine 1 % topical 1 applic topical DAILY PRN Wound 08/27/23 09/16/23 cream (Silvadene) Care tramadol 50 mg tablet 50 mg PO Q6H PRN Pain (Scale Score 08/27/23 09/16/23 4-6) gentamicin 0.1 % topical ointment 1 applic topical PRN PRN Wound Care 09/16/23 09/16/23 lubiprostone 8 mcg capsule 8 mcg PO BID 09/16/23 09/16/23 Allergies Allergy/AdvReac Type Severity Reaction Status Date / Time No Known Allergies Allergy Verified 08/05/23 22:23 Review of Systems Review of Systems: A 10 system review of systems was completed on the patient and is negative except for what is stated in the HPI. Nursing and ancillary documentation was reviewed. 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 Chronic anemia Chronic obstructive pulmonary disease Chronic pain Patient had a pain pump inserted in February 2019. Chronic respiratory failure with hypoxia, on home oxygen therapy Baseline oxygen requirement is 3 L nasal cannula. Congestive heart failure Echocardiogram February 2021: EF 55-60% (improved from prior echo of 45%) left ventricular septal wall motion abnormal related to bundle-branch block, grade 2 diastolic d
[2023-09-16] MEDS: SODIUM CHLORIDE 0.9% IV 500 ML (20:12)
[2023-09-16] MEDS: SODIUM CHLORIDE 0.9% IV 1,000 ML 150 ML IV CONT (20:28)
[2023-09-16 20:36] LABS: Add Urine Microscopic? YES; Appearance Urine Turbid (Clear); Bacteria Urine 4+ /hpf; Bilirubin Urine Negative (Negative); Blood Urine 3+ (Negative); Color Urine Dark Yellow (Yellow); Glucose Urine UA Negative (Negative); Hyaline Casts Urine Present /lpf; Ketones Urine Negative (Negative); Leukocyte Esterase Ur 3+ LEU/UL (Negative); Nitrate Urine Positive (Negative); Non Pathogenic Casts >20; Protein Urine 2+ mg/dL (Negative); RBC Urine >100 /hpf (0-2); Specific Grav Ur 1.016 (1.001-1.035); Squamous Epithelial Cell Urine Occasional /hpf (Few); WBC Urine >100 /hpf (0-3); pH Urine 7.5 (5.0-9.0)
[2023-09-16] MEDS: AZITHROMYCIN 500 MG/NS 250 ML 500 MG/250 ML BAG 250 MG IVPB (21:01)
[2023-09-16 22:45] VITALS: BP 110/76; PULSE 76; RESP 15; O2SAT 100
[2023-09-16 23:05] VITALS: PULSE 82; RESP 16; O2SAT 100
--- NOTE | 2023-09-16 23:07 | ADMGEN ---
This patient, Zack Orelalna, was admitted to Medical Room 261-01. Patient/family oriented to hospital policies and general routines including ID bracelet, bed and alarms, visiting hours, pain management, procedures, bathroom and other care routines, personal items, smoking policy, room service/diet, and visiting hours. Information on how to activate the Rapid Response Team has been discussed. Patient/Family are encouraged to report perceived risks to care and to ask questions if they do not understand what they are told or what they should do.
[2023-09-16 23:37] VITALS: BMI 21.3
[2023-09-17] VITALS (23 sets, daily range): BP systolic 100–120; BP diastolic 54–72; PULSE 65–95; RESP 14–20; TEMP 36.5–36.7; O2SAT 92–100
[2023-09-17 00:44] LABS: Basophils Percent Auto 0.2 % (0.2-1.2); Eosinophils Percent Auto 0.1 % (0-4.4); Hematocrit 37.8 % (42.0-52.0); Immature Granulocyte Percent A 0.7 % (0-0.5); Lymphocytes Absolute Auto 0.74 K/mm3 (0.9-3.2); Lymphocytes Percent Auto 4.8 % (18.3-44.2); Mean Corpuscular HGB Conc 31.7 g/dl (32-36); Mean Corpuscular Hemoglobin 28.2 pg (26-34); Mean Corpuscular Volume 88.9 fl (80-100); Mean Platelet Volume 10.6 fl (7.4-10.4); Monocytes Percent Auto 6.6 % (2.6-8.5); Neutrophils Absolute Auto 13.5 K/mm3 (1.3-6.7); Neutrophils Percent Auto 87.6 % (45.5-73.1); Platelet Count Result 260 k/mm3 (150-375); Red Blood Count 4.25 M/mm3 (4.6-6.20); Red Cell Distribution Width 17.2 % (11.5-14.5); White Blood Count 15.4 K/mm3 (4.5-10.0)
[2023-09-17 00:48] LABS: Chloride 82 mmol/L (98-107)
--- NOTE | 2023-09-17 00:50 | PC.NURSE ---
PT HAS MORPHINE PAIN PUMP TO RLQ. PUMP SET AT 18.8 MCG/HR ACCORDING TO FDC MEDICATION LIST
[2023-09-17 00:53] LABS: Blood Urea Nitrogen 22 mg/dL (9-20); Calcium 8.4 mg/dL (8.4-10.2); Carbon Dioxide > 40 mmol/L (22-30); Estimated CRCL calculation 68 ml/min; Estimated Glomerular Filt Rate > 60; Glucose 150 mg/dL (65-110); Magnesium 1.8 mg/dL (1.6-2.3); Potassium 3.8 mmol/L (3.4-5.0); Sodium 134 mmol/L (137-145)
[2023-09-17 01:00] LABS: NT Pro B Type Natriuretic Pept 6120 pg/mL (19.9-100)
[2023-09-17 01:17] LABS: Anisocytosis 1+; Ovalocytes 1+; Platelet Estimate Adequate (Adequate); Schistocytes Rare
[2023-09-17 01:21] LABS: Influenza A QL RT-PCR Negative (Negative); Influenza B QL RT-PCR Negative (Negative); RSV RNA, RT-PCR Negative (Negative); SARS-CoV-2 RNA PCR Negative (Negative)
[2023-09-17 01:25] LABS: Procalcitonin 1.4 ng/mL
--- NOTE | 2023-09-17 07:03 | PM.IMPN ---
Subjective Date/time seen: 09/17/23 07:03 Objective Data Vital Signs Vital Signs: Vital Signs - 24 hr 09/16/23 17:03 09/16/23 19:37 09/16/23 22:45 Temperature 36.4 C Pulse Rate 97 80 76 Respiratory Rate 12 121 H 15 Blood Pressure 107/67 122/76 110/76 Pulse Oximetry 97 95 100 Oxygen Delivery Nasal Cannula Oxygen Flow Rate 5 09/16/23 23:05 09/17/23 00:07 09/17/23 00:36 Temperature 36.5 C Pulse Rate 82 87 Respiratory Rate 16 16 Blood Pressure 120/72 Pulse Oximetry 100 92 92 Oxygen Delivery Nasal Cannula Oxygen Flow Rate 5 09/17/23 04:00 Temperature Pulse Rate 80 Respiratory Rate Blood Pressure Pulse Oximetry Oxygen Delivery Oxygen Flow Rate Intake/Output Intake/Output: Intake & Output 09/14/23 09/15/23 09/16/23 09/17/23 23:59 23:59 23:59 23:59 Intake Total 950 Balance 950 Meds/Results Medications: Active Medications Generic Name Dose Route Start Last Admin Trade Name Freq PRN Reason Stop Dose Admin Ceftriaxone Sodium 1 gm in 50 mls @ 100 mls/hr 09/17/23 20:00 Rocephin 1 Gm/Ns 50 Ml IVPB Q24H REHAN Azithromycin 500 mg in 250 mls @ 250 mls/hr 09/17/23 20:00 Zithromax IVPB Q24H REHAN Radiology Results: ITS Impressions Chest X-Ray 09/16/23 19:24 IMPRESSION: Right basal pneumonia. Labs Labs: Laboratory Results - last 24 hr 09/16/23 09/16/23 09/17/23 17:53 20:09 00:31 WBC 16.3 H 15.4 H RBC 4.17 L 4.25 L Hgb 11.7 L 12.0 L Hct 37.2 L 37.8 L MCV 89.2 88.9 MCH 28.1 28.2 MCHC 31.5 L 31.7 L RDW 17.1 H 17.2 H Plt Count 290 260 MPV 10.4 10.6 H Immature Gran % (Auto) Not Reportable 0.7 H Neut % (Auto) Not Reportable 87.6 H Lymph % (Auto) Not Reportable 4.8 L [place] % (Auto) Not Reportable 6.6 Eos % (Auto) Not Reportable 0.1 Baso % (Auto) Not Reportable 0.2 Lymph # (Auto) Not Reportable 0.74 L [place] # (Auto) Not Reportable 1.0 H Eos # (Auto) Not Reportable 0.0 Baso # (Auto) Not Reportable 0.0 Abs Immat Gran (auto) Not Reportable 0.10 H Absolute Neuts (auto) Not Reportable 13.5 H Absolute Nucleated RBC Not Reportable 0.000 Total Counted 100 Neutrophils % (Manual) 84 H Band Neutrophils % 1 Lymphocytes % (Manual) 7.0 L Monocytes % (Manual) 8 Nucleated RBC % Not Reportable 0.0 Abs Neuts (Manual) 13.85 H Abs Lymphs (Manual) 1.14 Abs Monocytes (Manual) 1.30 H Platelet Estimate Adequate Adequate Hypochromasia 1+ Anisocytosis 2+ 1+ Ovalocytes 1+ Schistocytes None seen Rare Sodium 134 L 134 L Potassium 3.0 L 3.8 Chloride 77 L 82 L Carbon Dioxide > 40 H > 40 H Anion Gap BUN 25 H D 22 H Creatinine 0.60 L 0.60 L Estim Creat Clear Calc 66 68 Estimated GFR > 60 > 60 Glucose 193 H 150 H Calcium 8.1 L 8.4 Magnesium 1.3 L 1.8 Total Bilirubin 1.0 AST 25 ALT 15 Alkaline Phosphatase 256 H NT-Pro-B Natriuret Pep 6120 H Total Protein 7.0 Albumin 3.2 L Procalcitonin 1.4 Urine Color Dark yellow Urine Appearance Turbid H Urine pH 7.5 Ur Specific [place] 1.016 Urine Protein 2+ H Urine Glucose (UA) Negative Urine Ketones Negative Ur Blood (Man) 3+ H Urine Nitrate Positive H Urine Bilirubin Negative Urine Urobilinogen 1.0 Leukocyte Esterase Rfl 3+ H Urine RBC >100 H Urine WBC >100 H Ur Squamous Epith Cells Occasional Urine Bacteria 4+ H Urine Casts >20 Hyaline Casts Present Influenza A (RT-PCR) Influenza B (RT-PCR) RSV (RT-PCR) SARS-CoV-2 RNA (RT-PCR) 09/17/23 00:33 WBC RBC Hgb Hct MCV MCH MCHC RDW Plt Count MPV Immature Gran % (Auto) Neut % (Auto) Lymph % (Auto) [place] % (Auto) Eos % (Auto) Baso % (Auto) Lymph # (Auto) [place] # (Auto) Eos # (Auto) Baso # (Auto) Abs Immat Gran (auto) Absolute Neuts (auto) Absolute Nucleated RBC Total Counte
--- NOTE | 2023-09-17 07:06 | PM.IMHP ---
H&P: HPI History of Present Illness Date/Time: 09/17/23 07:06 Chief Complaint: hypoxia, hypokalemia Narrative: This is an 83-year-old male patient past medical history including CVA, COPD, Chronic constipation, chronic respiratory failure with hypoxia home oxygen therapy, CHF, CAD, diabetes, atrial fibrillation/ flutter and recurrent right-sided pneumonia as well as shelter indwelling Dud[place] catheter who was sent to the emergency department from [facility] with report of low potassium. Labs at [facility] with a potassium level of 2.3 as well as decreased level of responsiveness and increasing oxygen demand prompted patient to be sent to the emergency department. Patient on 5 L oxygen when normally he wears 3 L NC. Chest x-ray indicative of right lower lobe pneumonia. Patient does has a history of aspiration pneumonia in the past and is on pureed diet with thickened liquids. Patient reports today that he feels much better than he has for the last couple days. Patient told the ER he is dehydrated from not drinking enough and having persistent diarrhea. Patient has multiple medications to prevent constipation which has been very severe in the past. Potassium improved to 3.0 on arrival to ER and was further treated now 3.8 this morning. Patient started on Rocephin and azithromycin in ER, changed to cefepime and azithromycin due to prior Klebsiella in urine resistant to Rocephin but susceptible to cefepime. Review of Systems Review of Systems: All systems reviewed & are unremarkable except as noted in HPI and below PMFSH Past Medical History Medical History Arthritis Atrial flutter Benign prostatic hyperplasia Cerebrovascular accident 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 Chronic anemia Chronic obstructive pulmonary disease Chronic pain Patient had a pain pump inserted in February 2019. Chronic respiratory failure with hypoxia, on home oxygen therapy Baseline oxygen requirement is 3 L nasal cannula. Congestive heart failure Echocardiogram February 2021: EF 55-60% (improved from prior echo of 45%) left ventricular septal wall motion abnormal related to bundle-branch block, grade 2 diastolic dysfunction, severe pulmonary hypertension with RVSP of 74, severe enlargement of the right atrium Coronary artery disease Diabetic neuropathy Gastroesophageal reflux disease History of bleeding peptic ulcer History of myocardial infarction Hypertension Iron deficiency anemia Receives frequent iron infusions. Liver cirrhosis Moderate pulmonary hypertension Estimated pulmonary arterial systolic pressure was 54 mmHg on echocardiogram dated 10/25/2020. Obstructive sleep apnea Paroxysmal atrial fibrillation Pseudobulbar affect Spinal stenosis Type 2 diabetes mellitus Hemoglobin A1c was 6.3% on 10/25/2020. Surgical History Surgical History History of bilateral cataract extraction History of bowel resection Dr Torres (2008) [place] and approx 2015 History of hernia repair 3 Family History Family History Father Acute myocardial infarction Sibling Acute myocardial infarction Brain aneurysm Other No problems noted. Mother Breast cancer Social History Social History Social History: Healthcare power of corrugator helper: Lennie Cruz, granddaughter. Code status: Full code. Smoking packs per day: 3 Smoking cigarettes per day: 60.0 Years smoked: 30 Smoking pack-years: 90.00 Smoking status: Never smoker Second hand tobacco smoke exposure: No Additional smoking assessment comments: quit 25 years ago Alcohol intake: never Substance use: never Substance use type: does not use Do You Feel Safe in your Home?: Yes Lack of Transportation:
[2023-09-17] MEDS: IPRATROPIUM 0.5 MG/ALBUTEROL SULFATE 2.5 MG AMPUL.NEB 3 ML INHALATION ×4 (08:18→19:52)
[2023-09-17] MEDS: guaiFENesin 12 HR 600 MG TABCR PO ×2 (09:47→21:52)
[2023-09-17] MEDS: FLUoxetine HCL 10 MG CAPSULE PO (09:47)
[2023-09-17] MEDS: ASCORBIC ACID 500 MG TABLET PO (09:47)
[2023-09-17] MEDS: METOPROLOL TARTRATE 12.5 MG TABLET PO ×2 (09:47→21:56)
[2023-09-17] MEDS: FERROUS SULFATE 325 MG TABLET DR BY MOUTH ×2 (09:47→17:32)
[2023-09-17] MEDS: CEFEPIME 2 GM/NS 50 ML 2 GM/50 ML BAG IVPB ×3 (09:48→23:07)
[2023-09-17] MEDS: FUROSEMIDE 40 MG TABLET PO (09:48)
[2023-09-17] MEDS: METOPROLOL TARTRATE 25 MG TABLET PO ×2 (09:48→21:56)
[2023-09-17] MEDS: MULTIVITAMINS /C LUTEIN (CENTRUM SILVER) TABLET *BKC 1 TAB PO (09:48)
[2023-09-17] MEDS: ENOXAPARIN 40 MG/0.4 ML SYRINGE SUB-Q (09:48)
[2023-09-17] MEDS: LUBIPROSTONE 8 MCG CAPSULE PO ×2 (09:48→17:32)
[2023-09-17 17:26] LABS: Glucose Point of Care 154 mg/dl (65-105)
[2023-09-17] MEDS: SENNA/DOCUSATE SODIUM TABLET 1 TAB PO (21:52)
[2023-09-17] MEDS: AZITHROMYCIN 500 MG/NS 250 ML 500 MG/250 ML BAG 250 MG IVPB (21:53)
[2023-09-17 22:20] LABS: Glucose Point of Care 184 mg/dl (65-105)
[2023-09-18] VITALS (17 sets, daily range): BP systolic 100–111; BP diastolic 52–69; PULSE 60–107; RESP 18; TEMP 36.4–36.7; O2SAT 94–100; BMI 21.4
[2023-09-18 06:22] LABS: Basophils Percent Auto 0.3 % (0.2-1.2); Eosinophils Absolute Auto 0.1 K/mm3 (0-0.3); Eosinophils Percent Auto 1.3 % (0-4.4); Hematocrit 33.9 % (42.0-52.0); Hemoglobin 10.6 g/dL (14.0-18.0); Immature Granulocyte Absolute 0.08 K/mm3 (0.00-0.031); Lymphocytes Absolute Auto 0.61 K/mm3 (0.9-3.2); Lymphocytes Percent Auto 7.9 % (18.3-44.2); Mean Corpuscular HGB Conc 31.3 g/dl (32-36); Mean Corpuscular Hemoglobin 27.8 pg (26-34); Mean Platelet Volume 10.1 fl (7.4-10.4); Monocytes Absolute Auto 0.6 K/mm3 (0.1-0.6); Monocytes Percent Auto 8.2 % (2.6-8.5); Neutrophils Absolute Auto 6.3 K/mm3 (1.3-6.7); Neutrophils Percent Auto 81.3 % (45.5-73.1); Platelet Count Result 206 k/mm3 (150-375); Red Blood Count 3.81 M/mm3 (4.6-6.20); Red Cell Distribution Width 16.9 % (11.5-14.5); White Blood Count 7.7 K/mm3 (4.5-10.0)
[2023-09-18 06:41] LABS: Albumin Level 2.7 g/dL (3.5-5.1); Blood Urea Nitrogen 19 mg/dL (9-20); Calcium 7.7 mg/dL (8.4-10.2); Carbon Dioxide > 40 mmol/L (22-30); Chloride 82 mmol/L (98-107); Estimated CRCL calculation 69 ml/min; Estimated Glomerular Filt Rate > 60; Glucose 105 mg/dL (65-110); Magnesium 1.5 mg/dL (1.6-2.3); Phosphorus 2.9 mg/dL (2.5-4.5); Potassium 2.7 mmol/L (3.4-5.0); Sodium 131 mmol/L (137-145)
[2023-09-18 06:50] LABS: Procalcitonin 0.5 ng/mL
[2023-09-18 07:47] LABS: Glucose Point of Care 130 mg/dl (65-105)
[2023-09-18] MEDS: FLUoxetine HCL 10 MG CAPSULE PO (08:25)
[2023-09-18] MEDS: ASCORBIC ACID 500 MG TABLET PO (08:25)
[2023-09-18] MEDS: METOPROLOL TARTRATE 25 MG TABLET PO ×2 (08:25→20:59)
[2023-09-18] MEDS: ENOXAPARIN 40 MG/0.4 ML SYRINGE SUB-Q (08:25)
[2023-09-18] MEDS: FERROUS SULFATE 325 MG TABLET DR BY MOUTH ×2 (08:26→16:42)
[2023-09-18] MEDS: METOPROLOL TARTRATE 12.5 MG TABLET PO ×2 (08:26→21:00)
[2023-09-18] MEDS: guaiFENesin 12 HR 600 MG TABCR PO ×2 (08:26→21:00)
[2023-09-18] MEDS: MULTIVITAMINS /C LUTEIN (CENTRUM SILVER) TABLET *BKC 1 TAB PO (08:27)
[2023-09-18] MEDS: POTASSIUM CHLORIDE 20 MEQ ER TABLET 40 MEQ PO (08:27)
[2023-09-18] MEDS: CEFEPIME 2 GM/NS 50 ML 2 GM/50 ML BAG IVPB ×2 (08:28→16:42)
[2023-09-18] MEDS: IPRATROPIUM 0.5 MG/ALBUTEROL SULFATE 2.5 MG AMPUL.NEB 3 ML INHALATION ×3 (08:51→20:16)
[2023-09-18] MEDS: KCL 20 MEQ/SW 100 ML 100 ML 50 MEQ IVPB ×2 (10:00→14:48)
--- NOTE | 2023-09-18 10:42 | PM.IMPN ---
Progress Note: A&P Assessment and Plan (1) Dysphagia: Code(s): R13.10 - Dysphagia, unspecified Status: Acute Assessment and Plan: Chronic and worsening, patient not able to take in enough oral food and fluids to maintain hydration and calorie needs. Family wanting PEG tube placement. Discussed with Dr. Cardona. Will have PEG placed on Thursday. Not able to swallow any consistency of food or fluids well. Family aware of likely ongoing aspiration but do not want to make him completely NPO or place NG tube due to pain with procedure and likelihood of displacement due to confusion. Patient still insisting on full code status. Family aware of the risks of continuing anything by mouth but wants to allow patient whenever food and fluid he can take despite known ongoing aspiration. Patient not willing to discuss hospice care. (2) Right lower lobe pneumonia: Code(s): J18.9 - Pneumonia, unspecified organism Status: Acute Assessment and Plan: Recurrent right lower lobe pneumonia elevated white blood cell count increased oxygen demand. Cefepime and azithromycin IV Legionella mycoplasma pneumococcal pending 09/17: MRSA nares positive, staph in urine, Vancomycin ordered (3) Acute on chronic respiratory failure with hypoxia and hypercapnia: Code(s): J96.21 - Acute and chronic respiratory failure with hypoxia; J96.22 - Acute and chronic respiratory failure with hypercapnia Status: Acute Assessment and Plan: requiring 5 L on arrival titrated back down to 3 L which is usual home oxygen use MALLORY but will not wear CPAP (4) Hypokalemia: Code(s): E87.6 - Hypokalemia Status: Acute Assessment and Plan: reported 2.3 at the nursing facility potassium 3.0 in the ER and 3.8 this morning further repletion 09/17: Potassium 2.7, Magnesium 1.5, replaced IV (5) Hypomagnesemia: Code(s): E83.42 - Hypomagnesemia Status: Acute Assessment and Plan: magnesium initially 1 3 on ER, 1.8 this morning after repletion 09/17: Potassium 2.7, Magnesium 1.5, replaced IV (6) Type 2 diabetes mellitus: Qualifiers: Diabetes mellitus fci insulin use: without rodent exterminator use Diabetes mellitus complication status: without complication Qualified Code(s): E11.9 - Type 2 diabetes mellitus without complications Code(s): E11.9 - Type 2 diabetes mellitus without complications Status: Chronic Assessment and Plan: ACHS fingerstick glucose Medium dose SSI Changed diet to Diabetic (initially ordered as regular) with thickened liquids and pureed consistency (7) Urethral catheter present for long-term use: Code(s): Z96.0 - Presence of urogenital implants Status: Acute Assessment and Plan: Abnormal appearing UA, chronic indwelling Dudley catheter Prior urine cultures with resistant Klebsiella, changed Rocephin to cefepime which was previously sensitive Patient previously on meropenem when admitted with same concerns 09/17: Staph aureus in urine, awaiting sensitivities, start vancomycin IV (8) MALLORY (obstructive sleep apnea): Code(s): G47.33 - Obstructive sleep apnea (adult) (pediatric) Status: Acute Assessment and Plan: Wears oxygen, refuses CPAP (9) A-fib: Code(s): I48.91 - Unspecified atrial fibrillation Status: Chronic Assessment and Plan: Paroxysmal, Sinus currently with rate controlled DC tele Patient not anticoagulated due to increased risk of bleeding Plan Family now wants PEG placement, discussed with Dr. Cardona and will do on Thursday. Time Spent With Patient Time: Total time spent 90 minutes [id number] Time with patient: Greater than 35 minutes Subjective Date/time seen: 09/18/23 10:42 Interval history: Patient confused this morning on examination. He is struggling to swallow food and drink. Potassium and magnesium were both decreased with morning labs, replaced by
[2023-09-18 11:47] LABS: Glucose Point of Care 161 mg/dl (65-105)
[2023-09-18] MEDS: VANCOMYCIN 1,500 MG/NS 500 ML 1,500 MG/500 ML BAG 250 MG IVPB (12:32)
[2023-09-18] MEDS: MAGNESIUM SULF 2 GM/WATER 50ML 2 GM/50 ML BAG IVPB (12:32)
[2023-09-18 15:33] LABS: MRSA (PCR) DETECTED (NOT DETECTE)
[2023-09-18 16:47] LABS: Glucose Point of Care 135 mg/dl (65-105)
[2023-09-18] MEDS: SENNA/DOCUSATE SODIUM TABLET 1 TAB PO (21:00)
[2023-09-18] MEDS: AZITHROMYCIN 500 MG/NS 250 ML 500 MG/250 ML BAG 250 MG IVPB (21:00)
[2023-09-18] MEDS: ACETAMINOPHEN 325 MG TABLET 650 MG PO (21:00)
[2023-09-18 22:04] LABS: Glucose Point of Care 163 mg/dl (65-105)
[2023-09-19] VITALS (18 sets, daily range): BP systolic 107–115; BP diastolic 52–62; PULSE 63–82; RESP 14–20; TEMP 36.6–36.9; O2SAT 94–100
[2023-09-19 05:02] LABS: Hematocrit 34.4 % (42.0-52.0); Hemoglobin 10.4 g/dL (14.0-18.0); Mean Corpuscular HGB Conc 30.2 g/dl (32-36); Mean Corpuscular Hemoglobin 27.7 pg (26-34); Mean Corpuscular Volume 91.5 fl (80-100); Mean Platelet Volume 10.6 fl (7.4-10.4); Platelet Count Result 217 k/mm3 (150-375); Red Blood Count 3.76 M/mm3 (4.6-6.20); Red Cell Distribution Width 16.6 % (11.5-14.5)
[2023-09-19 05:15] LABS: Albumin Level 2.8 g/dL (3.5-5.1); Blood Urea Nitrogen 19 mg/dL (9-20); Carbon Dioxide > 40 mmol/L (22-30); Chloride 85 mmol/L (98-107); Estimated CRCL calculation 68 ml/min; Estimated Glomerular Filt Rate > 60; Glucose 96 mg/dL (65-110); Magnesium 1.9 mg/dL (1.6-2.3); Phosphorus 2.6 mg/dL (2.5-4.5); Potassium 3.8 mmol/L (3.4-5.0); Sodium 133 mmol/L (137-145)
[2023-09-19 05:31] LABS: Procalcitonin 0.3 ng/mL
[2023-09-19] MEDS: VANCOMYCIN 1,250 MG/NS 250 ML 1,250 MG/250 ML BAG 166.67 MG IVPB (06:21)
[2023-09-19] MEDS: IPRATROPIUM 0.5 MG/ALBUTEROL SULFATE 2.5 MG AMPUL.NEB 3 ML INHALATION ×4 (06:45→22:04)
[2023-09-19 07:57] LABS: Glucose Point of Care 88 mg/dl (65-105)
[2023-09-19] MEDS: CEFEPIME 2 GM/NS 50 ML 2 GM/50 ML BAG IVPB ×4 (08:04→23:00)
[2023-09-19] MEDS: METOPROLOL TARTRATE 25 MG TABLET PO ×2 (08:58→20:53)
[2023-09-19] MEDS: FERROUS SULFATE 325 MG TABLET DR BY MOUTH ×2 (08:58→16:41)
[2023-09-19] MEDS: METOPROLOL TARTRATE 12.5 MG TABLET PO ×2 (08:58→20:53)
[2023-09-19] MEDS: MULTIVITAMINS /C LUTEIN (CENTRUM SILVER) TABLET *BKC 1 TAB PO (08:58)
[2023-09-19] MEDS: guaiFENesin 12 HR 600 MG TABCR PO ×2 (08:58→20:53)
[2023-09-19] MEDS: LACTATED RINGERS 1,000 ML 50 ML IV CONT (08:59)
[2023-09-19] MEDS: FLUoxetine HCL 10 MG CAPSULE PO (08:59)
[2023-09-19] MEDS: ENOXAPARIN 40 MG/0.4 ML SYRINGE SUB-Q (08:59)
[2023-09-19] MEDS: ASCORBIC ACID 500 MG TABLET PO (08:59)
[2023-09-19] MEDS: KCL 20 MEQ/SW 100 ML 100 ML 50 MEQ IVPB (09:00)
--- NOTE | 2023-09-19 11:37 | WPDGICN ---
Assessment and Plan Assessment and plan (1) Pneumonia: Qualifiers: Laterality: right Lung location: lower lobe of lung Pneumonia type: due to unspecified organism Qualified Code(s): J18.9 - Pneumonia, unspecified organism Code(s): J18.9 - Pneumonia, unspecified organism Status: Acute Assessment and Plan: treated now and better (2) Acute on chronic respiratory failure with hypoxia and hypercapnia: Code(s): J96.21 - Acute and chronic respiratory failure with hypoxia; J96.22 - Acute and chronic respiratory failure with hypercapnia Status: Acute Assessment and Plan: required more oxygen on admission, stable now (3) Dysphagia: Code(s): R13.10 - Dysphagia, unspecified Status: Acute Assessment and Plan: family decided peg placement, plan for thursday on aspiration precautions (4) Adult failure to thrive syndrome: Code(s): R62.7 - Adult failure to thrive Status: Acute (5) Hypokalemia: Code(s): E87.6 - Hypokalemia Status: Acute GI Consult Note Consult date/time: 09/19/23 11:37 Reason for consult: aspiration, dysphagia HPI: Zack Orellana is a 83 year old male with history of CVA, COPD, constipation, chronic respiratory failure with hypoxia home oxygen therapy, CHF, CAD, diabetes, atrial fibrillation/ flutter and recurrent right-sided pneumonia as well as shelter indwelling Dudley catheter who was sent to the emergency department from retirement with report of low potassium after routine blood work, it was 2.3, also patient was more confused than usual and required more oxygen. Chest x-ray indicative of right lower lobe pneumonia, he has previous aspiration and he is supposed to be on pureed diet with thickened liquids. He is awake but somewhat confused and not best historian. Primary talked to family and they would like to proceed with PEG placement on Thursday. Review of Systems Eyes: Eyes: Denies blurry vision ENT: Reports Normal hearing present Cardiovascular: Cardiovascular: Denies chest pain Respiratory: Respiratory: Reports cough Gastrointestinal: Gastrointestinal: Denies abdominal pain Musculoskeletal: Musculoskeletal: Denies back pain Integumentary/Breasts: Skin/Breast: Denies rash Neurologic: Denies Abnormal speech present Psychiatric: Psychiatric: Reports confusion PMFSH Past Medical History Medical History Arthritis Atrial flutter Benign prostatic hyperplasia Cerebrovascular accident 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 Chronic anemia Chronic obstructive pulmonary disease Chronic pain Patient had a pain pump inserted in February 2019. Chronic respiratory failure with hypoxia, on home oxygen therapy Baseline oxygen requirement is 3 L nasal cannula. Congestive heart failure Echocardiogram February 2021: EF 55-60% (improved from prior echo of 45%) left ventricular septal wall motion abnormal related to bundle-branch block, grade 2 diastolic dysfunction, severe pulmonary hypertension with RVSP of 74, severe enlargement of the right atrium Coronary artery disease Diabetic neuropathy Gastroesophageal reflux disease History of bleeding peptic ulcer History of myocardial infarction Hypertension Iron deficiency anemia Receives frequent iron infusions. Liver cirrhosis Moderate pulmonary hypertension Estimated pulmonary arterial systolic pressure was 54 mmHg on echocardiogram dated 10/25/2020. Obstructive sleep apnea Paroxysmal atrial fibrillation Pseudobulbar affect Spinal stenosis Type 2 diabetes mellitus Hemoglobin A1c was 6.3% on 10/25/2020. Surgical History Surgical History History of bilateral cataract extraction History of bowel resection Dr Torres (2008) [place] and approx 2015 History of hernia repair 3 Family History Family H
[2023-09-19 12:09] LABS: Glucose Point of Care 128 mg/dl (65-105)
[2023-09-19] MEDS: MAGNESIUM SULF 1 GM/D5W 100 ML 1 GM/100 ML BAG IVPB (12:11)
--- NOTE | 2023-09-19 13:40 | PM.IMPN ---
Progress Note: A&P Assessment and Plan (1) Dysphagia: Code(s): R13.10 - Dysphagia, unspecified Status: Acute Assessment and Plan: Chronic and worsening, patient not able to take in enough oral food and fluids to maintain hydration and calorie needs. Family wanting PEG tube placement. Discussed with Dr. Cardona. Will have PEG placed on Thursday. Not able to swallow any consistency of food or fluids well. Family aware of likely ongoing aspiration but do not want to make him completely NPO or place NG tube due to pain with procedure and likelihood of displacement due to confusion. Patient still insisting on full code status. Family aware of the risks of continuing anything by mouth but wants to allow patient whenever food and fluid he can take despite known ongoing aspiration. Patient not willing to discuss hospice care. (2) Right lower lobe pneumonia: Code(s): J18.9 - Pneumonia, unspecified organism Status: Acute Assessment and Plan: Recurrent right lower lobe pneumonia elevated white blood cell count increased oxygen demand. Cefepime and azithromycin IV Legionella mycoplasma pneumococcal pending 09/17: MRSA nares positive, staph in urine, Vancomycin ordered 09/18: MRSA urine, susceptible to Bactrim, continue vancomycin until able to give Bactrim by PEG tube (3) Acute on chronic respiratory failure with hypoxia and hypercapnia: Code(s): J96.21 - Acute and chronic respiratory failure with hypoxia; J96.22 - Acute and chronic respiratory failure with hypercapnia Status: Acute Assessment and Plan: requiring 5 L on arrival titrated back down to 3 L which is usual home oxygen use MALLORY but will not wear CPAP (4) Hypokalemia: Code(s): E87.6 - Hypokalemia Status: Acute Assessment and Plan: reported 2.3 at the nursing facility potassium 3.0 in the ER and 3.8 this morning further repletion 09/17: Potassium 2.7, Magnesium 1.5, replaced IV 09/18: potassium 3.8, magnesium 1.9, additional supplementation provided IV 20 mEq potassium 1 g magnesium due to poor nutrition status (5) Hypomagnesemia: Code(s): E83.42 - Hypomagnesemia Status: Acute Assessment and Plan: magnesium initially 1 3 on ER, 1.8 this morning after repletion 09/17: Potassium 2.7, Magnesium 1.5, replaced IV 09/18: potassium 3.8, magnesium 1.9, additional supplementation provided IV 20 mEq potassium 1 g magnesium due to poor nutrition status (6) Type 2 diabetes mellitus: Qualifiers: Diabetes mellitus fpc insulin use: without longitudinal float operator use Diabetes mellitus complication status: without complication Qualified Code(s): E11.9 - Type 2 diabetes mellitus without complications Code(s): E11.9 - Type 2 diabetes mellitus without complications Status: Chronic Assessment and Plan: ACHS fingerstick glucose Medium dose SSI Changed diet to Diabetic (initially ordered as regular) with thickened liquids and minced/moist consistency (7) Urethral catheter present for long-term use: Code(s): Z96.0 - Presence of urogenital implants Status: Acute Assessment and Plan: Abnormal appearing UA, chronic indwelling Dudley catheter Prior urine cultures with resistant Klebsiella, changed Rocephin to cefepime which was previously sensitive Patient previously on meropenem when admitted with same concerns 09/17: Staph aureus in urine, awaiting sensitivities, start vancomycin IV 09/18: MRSA urine, susceptible to Bactrim, continue vancomycin until able to give Bactrim by PEG tube (8) MALLORY (obstructive sleep apnea): Code(s): G47.33 - Obstructive sleep apnea (adult) (pediatric) Status: Acute Assessment and Plan: Wears oxygen, refuses CPAP (9) A-fib: Code(s): I48.91 - Unspecified atrial fibrillation Status: Chronic Assessment and Plan: Paroxysmal, Sinus currently with rate controlled DC tele Patient not anticoagulated due to increas
[2023-09-19 16:39] LABS: Glucose Point of Care 147 mg/dl (65-105)
[2023-09-19] MEDS: SENNA/DOCUSATE SODIUM TABLET 1 TAB PO (20:53)
[2023-09-19] MEDS: AZITHROMYCIN 500 MG/NS 250 ML 500 MG/250 ML BAG 250 MG IVPB (20:53)
[2023-09-20] VITALS (20 sets, daily range): BP systolic 98–113; BP diastolic 52–75; PULSE 55–86; RESP 18–21; TEMP 36.3–36.4; O2SAT 91–100
[2023-09-20] MEDS: VANCOMYCIN 1,250 MG/NS 250 ML 1,250 MG/250 ML BAG 166 MG IVPB ×2 (00:09→17:12)
[2023-09-20 03:03] LABS: Glucose Point of Care 187 mg/dl (65-105)
[2023-09-20 05:21] LABS: Basophils Percent Auto 0.3 % (0.2-1.2); Eosinophils Absolute Auto 0.1 K/mm3 (0-0.3); Eosinophils Percent Auto 0.6 % (0-4.4); Hematocrit 37.1 % (42.0-52.0); Hemoglobin 11.3 g/dL (14.0-18.0); Immature Granulocyte Absolute 0.09 K/mm3 (0.00-0.031); Lymphocytes Absolute Auto 0.64 K/mm3 (0.9-3.2); Lymphocytes Percent Auto 7.4 % (18.3-44.2); Mean Corpuscular HGB Conc 30.5 g/dl (32-36); Mean Corpuscular Hemoglobin 27.8 pg (26-34); Mean Corpuscular Volume 91.4 fl (80-100); Mean Platelet Volume 10.1 fl (7.4-10.4); Monocytes Absolute Auto 0.6 K/mm3 (0.1-0.6); Neutrophils Absolute Auto 7.2 K/mm3 (1.3-6.7); Neutrophils Percent Auto 83.7 % (45.5-73.1); Platelet Count Result 211 k/mm3 (150-375); Red Blood Count 4.06 M/mm3 (4.6-6.20); Red Cell Distribution Width 16.8 % (11.5-14.5); White Blood Count 8.6 K/mm3 (4.5-10.0)
[2023-09-20 05:38] LABS: Albumin Level 2.8 g/dL (3.5-5.1); Anion Gap 4 mmol/L (4-12); Blood Urea Nitrogen 23 mg/dL (9-20); Calcium 8.1 mg/dL (8.4-10.2); Carbon Dioxide 36 mmol/L (22-30); Chloride 93 mmol/L (98-107); Estimated CRCL calculation 73 ml/min; Estimated Glomerular Filt Rate > 60; Glucose 116 mg/dL (65-110); Phosphorus 2.9 mg/dL (2.5-4.5); Potassium 3.3 mmol/L (3.4-5.0); Sodium 133 mmol/L (137-145)
[2023-09-20] MEDS: IPRATROPIUM 0.5 MG/ALBUTEROL SULFATE 2.5 MG AMPUL.NEB 3 ML INHALATION ×4 (07:35→20:54)
--- NOTE | 2023-09-20 08:27 | PM.IMPN ---
Progress Note: A&P Assessment and Plan (1) Dysphagia: Code(s): R13.10 - Dysphagia, unspecified Status: Acute Assessment and Plan: Chronic and worsening, patient not able to take in enough oral food and fluids to maintain hydration and calorie needs -Pt and family (per previous provider) wanting PEG tube placement. Will have PEG placed on Thursday. I am concerned about his hernia and the location of this G-tube but we will see what GI thinks - Not able to swallow any consistency of food or fluids well. Family aware of likely ongoing aspiration but do not want to make him completely NPO or place NG tube due to pain with procedure and likelihood of displacement due to confusion. -per previous provider- Patient still requesting full code status. Patient not willing to discuss hospice care. family aware of the risks of continuing anything by mouth but wants to allow patient whenever food and fluid he can take despite known ongoing aspiration. -on abx for PNA. WBC nml, no fevers (2) Right lower lobe pneumonia: Code(s): J18.9 - Pneumonia, unspecified organism Status: Acute Assessment and Plan: Recurrent right lower lobe pneumonia elevated white blood cell count increased oxygen demand on admission -currently on Cefepime, vanc(urine) and azithromycin IV -viral panel negative -Legionella mycoplasma pneumococcal pending (less likely) (3) Acute on chronic respiratory failure with hypoxia and hypercapnia: Code(s): J96.21 - Acute and chronic respiratory failure with hypoxia; J96.22 - Acute and chronic respiratory failure with hypercapnia Status: Acute Assessment and Plan: back to baseline 3l -likely due to pna -monitor (4) Hypokalemia: Code(s): E87.6 - Hypokalemia Status: Acute Assessment and Plan: reported 2.3 at the nursing facility, a bit low today -will supplement -mg nml (5) Hypomagnesemia: Code(s): E83.42 - Hypomagnesemia Status: Acute Assessment and Plan: resolved (6) Type 2 diabetes mellitus: Qualifiers: Diabetes mellitus complication status: without complication Diabetes mellitus mcc insulin use: without terminal makeup operator use Qualified Code(s): E11.9 - Type 2 diabetes mellitus without complications Code(s): E11.9 - Type 2 diabetes mellitus without complications Status: Chronic Assessment and Plan: controlled while here, no insulin has been given -A1c 6.4 two months ago -Continue SSI, hypoglycemia protocol, and diabetic diet (7) Urethral catheter present for long-term use: Code(s): Z96.0 - Presence of urogenital implants Status: Acute Assessment and Plan: Abnormal appearing UA with MRSA on cx, chronic indwelling Dudley catheter -MRSA urine, susceptible to Bactrim, continue vancomycin until able to give Bactrim by PEG tube (8) MALLORY (obstructive sleep apnea): Code(s): G47.33 - Obstructive sleep apnea (adult) (pediatric) Status: Acute Assessment and Plan: Wears oxygen, refuses CPAP (9) A-fib: Code(s): I48.91 - Unspecified atrial fibrillation Status: Chronic Assessment and Plan: Paroxysmal, Sinus currently with rate controlled Patient not anticoagulated due to increased risk of bleeding Plan PEG planned for thursday, d/c thereafter Time Spent With Patient Time with patient: 25 - 35 minutes Subjective Date/time seen: 09/20/23 08:27 Interval history: Pt is a 83-year-old male here for dysphagia and pneumonia. 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 He does follow commands and communicates. Patient states he is in some mild pain and would like some Tylenol but isn't able to tell me exactly where it is. Nurse states that he goes in and out of confusion. Review of Systems Review of Systems: All systems reviewed & are unremarkable except as noted in H
[2023-09-20 08:32] LABS: Glucose Point of Care 99 mg/dl (65-105)
[2023-09-20] MEDS: CEFEPIME 2 GM/NS 50 ML 2 GM/50 ML BAG IVPB ×2 (08:38→15:51)
[2023-09-20] MEDS: MULTIVITAMINS /C LUTEIN (CENTRUM SILVER) TABLET *BKC 1 TAB PO (08:40)
[2023-09-20] MEDS: FERROUS SULFATE 325 MG TABLET DR BY MOUTH ×2 (08:40→15:51)
[2023-09-20] MEDS: ENOXAPARIN 40 MG/0.4 ML SYRINGE SUB-Q (08:40)
[2023-09-20] MEDS: guaiFENesin 12 HR 600 MG TABCR PO ×2 (08:40→22:25)
[2023-09-20] MEDS: FLUoxetine HCL 10 MG CAPSULE PO (08:40)
[2023-09-20] MEDS: ASCORBIC ACID 500 MG TABLET PO (08:40)
[2023-09-20] MEDS: POTASSIUM CHLORIDE 20 MEQ ER TABLET 40 MEQ PO (08:44)
[2023-09-20] MEDS: METOPROLOL TARTRATE 25 MG TABLET PO (08:45)
[2023-09-20] MEDS: METOPROLOL TARTRATE 12.5 MG TABLET PO (08:46)
[2023-09-20] MEDS: LACTATED RINGERS 1,000 ML 50 ML IV CONT (08:48)
[2023-09-20] MEDS: ACETAMINOPHEN 325 MG TABLET 650 MG PO ×2 (09:08→15:50)
[2023-09-20 12:21] LABS: Glucose Point of Care 134 mg/dl (65-105)
--- NOTE | 2023-09-20 15:26 | WPDGIPROGNO ---
Progress Note: A&P Assessment and Plan (1) Dysphagia: Code(s): R13.10 - Dysphagia, unspecified Status: Acute Assessment and Plan: recurrent aspiration and dysphagia family talked to primary team and agreeable for PEG placement, will do it tomorrow (2) Pneumonia: Qualifiers: Laterality: right Lung location: lower lobe of lung Pneumonia type: due to unspecified organism Qualified Code(s): J18.9 - Pneumonia, unspecified organism Code(s): J18.9 - Pneumonia, unspecified organism Status: Acute Assessment and Plan: on rx (3) CHF (congestive heart failure): Qualifiers: Heart failure chronicity: acute on chronic Heart failure type: combined systolic and diastolic Qualified Code(s): I50.43 - Acute on chronic combined systolic (congestive) and diastolic (congestive) heart failure Code(s): I50.9 - Heart failure, unspecified Status: Acute (4) Hypokalemia: Code(s): E87.6 - Hypokalemia Status: Acute Assessment and Plan: treated (5) Acute on chronic respiratory failure with hypoxia and hypercapnia: Code(s): J96.21 - Acute and chronic respiratory failure with hypoxia; J96.22 - Acute and chronic respiratory failure with hypercapnia Status: Acute Assessment and Plan: improved Subjective Date/time seen: 09/20/23 15:26 Interval history: no changes Review of Systems Review of Systems: All systems reviewed & are unremarkable except as noted in HPI and below Exam Narrative: CONST: Confused, no acute distress. On 3 L of oxygen via nasal cannula. HENMT: Head is normocephalic and atraumatic.. EYES: No conjunctival icterus, injection, or pallor. NECK: No meningeal signs. RESP: Able to speak in full sentences. Normal respiratory effort. Crackles right lower CARDIO: Irregularly irregular rhythm. GI: Nondistended. No tenderness to palpation. Soft. Chronic Dudley catheter in place, blaze urine present SKIN: No rashes or lesions noted on exposed skin. Wound on backside and ankle being treated, wound consult placed NEURO: Confused. Equal motor strength in the bilateral lower extremities. Bilateral upper extremities are equal in motor strength. EXTREM/MSK/BACK: No pedal edema. PSYCH: Normal affect. Objective Data Vital Signs Vital Signs: Vital Signs - 24 hr 09/19/23 20:53 09/19/23 20:53 09/19/23 22:04 Temperature Pulse Rate 75 75 74 Respiratory Rate 18 Blood Pressure Pulse Oximetry Oxygen Delivery Oxygen Flow Rate 09/19/23 22:05 09/19/23 22:00 09/20/23 05:21 Temperature 98.3 F 97.4 F L Pulse Rate 73 82 Respiratory Rate 18 18 Blood Pressure 110/62 107/53 L Pulse Oximetry 95 94 91 Oxygen Delivery Nasal Cannula Oxygen Flow Rate 3 09/20/23 07:36 09/20/23 07:36 09/20/23 07:46 Temperature Pulse Rate 73 76 Respiratory Rate 18 18 Blood Pressure Pulse Oximetry 93 Oxygen Delivery Nasal Cannula Oxygen Flow Rate 3 09/20/23 08:45 09/20/23 08:46 09/20/23 11:03 Temperature Pulse Rate 80 80 84 Respiratory Rate 18 Blood Pressure Pulse Oximetry Oxygen Delivery Oxygen Flow Rate 09/20/23 11:12 09/20/23 08:35 Temperature Pulse Rate 86 Respiratory Rate 18 18 Blood Pressure Pulse Oximetry 97 Oxygen Delivery Nasal Cannula Oxygen Flow Rate 3 Intake/Output Intake/Output: Intake & Output 09/17/23 09/18/23 09/19/23 09/20/23 23:59 23:59 23:59 23:59 Intake Total 1600 2410 1820.8 979.2 Output Total 1050 475 700 700 Balance 550 1935 1120.8 279.2 Meds/Results Medications: Active Medications Generic Name Dose Route Start Last Admin Trade Name Freq PRN Reason Stop Dose Admin Acetaminophen 650 mg 09/17/23 07:33 09/20/23 09:08 Acetaminophen 325 Mg Tablet PO 650 mg Q4H PRN Administration Pain Rated 1-6 or Fever Albuterol/Ipratropium 3 ml 09/17/23 08:00 09/20/23 11:03 Ipratropium 0.5 Mg/Albuterol Sul
[2023-09-20 17:04] LABS: Glucose Point of Care 123 mg/dl (65-105)
[2023-09-20 19:44] LABS: Glucose Point of Care 149 mg/dl (65-105)
--- NOTE | 2023-09-20 21:50 | PC.NURSE ---
Pt O2 saturation dropping into the lower 70's. Rapid response called.
[2023-09-20 22:25] LABS: Hemoglobin 9.9 g/dL (14.0-18.0); Mean Corpuscular HGB Conc 30.9 g/dl (32-36); Mean Corpuscular Hemoglobin 28.2 pg (26-34); Mean Corpuscular Volume 91.2 fl (80-100); Mean Platelet Volume 10.3 fl (7.4-10.4); Platelet Count Result 189 k/mm3 (150-375); Red Blood Count 3.51 M/mm3 (4.6-6.20); Red Cell Distribution Width 16.9 % (11.5-14.5); White Blood Count 7.6 K/mm3 (4.5-10.0)
[2023-09-20] MEDS: AZITHROMYCIN 500 MG/NS 250 ML 500 MG/250 ML BAG 250 MG IVPB (22:26)
[2023-09-20] MEDS: SENNA/DOCUSATE SODIUM TABLET 1 TAB PO (22:26)
[2023-09-20 22:27] LABS: Glucose Point of Care 172 mg/dl (65-105)
--- NOTE | 2023-09-20 22:37 | PM.EVENT ---
Event Note Event Note Event Note: RAPID RESPONSE Patient is 83 y/o male with history of dysphagia and here for G tube placement, while changing patient by nursing staff patient desated and briefly was not making any sense, RR was called, initially patient was not registering pulse ox, patient was placed on nonrebreather mask, and ear prob was placed, ABG was ordered but after several attempts, order was canceled as patient was more communicative and per nursing staff patient was his baseline, patient thanked us for our effort, will continue to monitor patient closely. Patient family is present now and myself and Ms Latonia Harris discussed with the family great length and family has decided to place under comfort care.
[2023-09-20 22:49] LABS: Troponin I 0.015 ng/mL (0.000-0.034)
[2023-09-20 22:55] LABS: Alanine Aminotransferase 14 U/L (6-50); Albumin Level 2.4 g/dL (3.5-5.1); Alkaline Phosphatase 207 U/L (38-126); Aspartate Amino Transferase 26 U/L (17-59); Bilirubin,Total 0.5 mg/dL (0.2-1.3); Blood Urea Nitrogen 23 mg/dL (9-20); Carbon Dioxide > 40 mmol/L (22-30); Chloride 95 mmol/L (98-107); Estimated CRCL calculation 73 ml/min; Estimated Glomerular Filt Rate > 60; Glucose 143 mg/dL (65-110); Sodium 133 mmol/L (137-145)
[2023-09-20] MEDS: LORazepam INJ (*CRX) 2 MG/ML VIAL IV PUSH (23:28)
[2023-09-20] MEDS: MORPHINE SULFATE INJ (*CRX) 10 MG/ML AMP 2 MG IV PUSH (23:29)
--- NOTE | 2023-09-21 | PC.NURSE ---
Addendum entered by Earlene Hunter RN 09/21/23 02:18: Assessment done at 2121 not 2103. Original Note: At 2103, went in pt's room to assess pt and give medications. Checked pt's vital signs that were documented before giving medication and noted BP was low, 98/52 with last documented HR of 76. Called hospitalist communications senior associate @2134 to ask if scheduled metoprolol of 37.5 mg should be given. Hospitalist okay to hold medication now but if HR were to spike to 90s or 100s to give medication. Went back to pt's room and attempted to give pt his other medications & I noticed pt's mouth and tongue were very dry asked pt to drink water but he wasn't following directions to well. Swabbed pt with a sponge and water and asked pt again if he could attempt to drink some water. In the meantime I was rechecking pt's HR and SPO2 HR was lower in the 50s and 60s, with one spike into 112 (pt does have a hx of a-fib), and SPO2 was found to be in the 70s on the hands on 3L NC (pt's baseline) initially. Moved O2 onto 5L NC and there was no improvement. Noted hands were cold so attempted to take SPO2 on pt's toes. Highest readings I could get were between 82-84% on 5L NC. Called charge nurse and told her my findings.
--- NOTE | 2023-09-21 00:33 | PC.NURSE ---
Order put in by Lev Carpio APRN for Morphine 2mg IV PUSH ONCE ONE in a 10 mg/mL 1 mL Amp @2311. Medication given @ 2329 using vial of morphine 2mg/mL 1L Syr @ 2329.
[2023-09-21 05:14] VITALS: BP 141/59; PULSE 58; RESP 14; TEMP 36.3; O2SAT 97
[2023-09-21 08:25] LABS: Glucose Point of Care 88 mg/dl (65-105)
--- NOTE | 2023-09-21 11:08 | PC.NURSE ---
Per Dr. Renteria place patient on 2L NC for comfort and consult hospice
[2023-09-21] MEDS: MORPHINE SULFATE (*CRX) 2 MG/ML INJ IV PUSH ×2 (13:08→14:03)
[2023-09-21 13:53] VITALS: BP 105/66; PULSE 78; RESP 16; TEMP 36.7
--- NOTE | 2023-09-21 14:05 | PM.IMPN ---
Progress Note: A&P Assessment and Plan (1) End of life care: Code(s): Z51.5 - Encounter for palliative care Status: Acute (2) Dysphagia: Code(s): R13.10 - Dysphagia, unspecified Status: Acute (3) Urethral catheter present for long-term use: Code(s): Z96.0 - Presence of urogenital implants Status: Acute Plan # end of life care -patient under comfort care orders -patient appears to have pneumonia, likely aspiration from dysphagia -hospice consulted: Hospice to meet the family this afternoon # right lower lobe pneumonia -was being treated with cefepime, azithromycin, vancomycin, discontinue antibiotics for comfort care -plan was for PEG tube however with the change in status, family has opted for comfort care measures # electrolyte imbalances -hypomagnesemia, hypokalemia # chronic conditions -chronic hypoxic respiratory failure 3L O2 by nasal cannula -type 2 diabetes: Was recent A1c 6.4 -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 He had an episode of respiratory distress overnight. Family meeting was done and he has been to changed to comfort care measures. Hospice to meet family today. Anticipate either inpatient hospice or back to nursing facility tomorrow under hospice. canceling peg tube Review of Systems Review of Systems: Unable to obtain due to mental status Exam Narrative: - GENERAL: Frail ill-appearing male in no acute distress - HENT: Dry mucous membranes. - LUNGS: Diminished breath sounds - CARDIOVASCULAR: Regular rate and rhythm. - ABDOMEN: Soft - EXTREMITIES: Peripheral pulses 2+ - NEUROLOGIC: Unable to assess orientation: Patient is somnolent - LYMPH: No cervical lymphadenopathy. Objective Data Vital Signs Vital Signs: Vital Signs - 24 hr 09/20/23 16:15 09/20/23 16:24 09/20/23 20:53 Temperature 36.3 C L Pulse Rate 80 80 55 L Respiratory Rate 18 18 18 Blood Pressure 98/52 L Pulse Oximetry 96 Oxygen Delivery Oxygen Flow Rate 09/20/23 20:56 09/20/23 20:57 09/20/23 21:07 Temperature Pulse Rate 76 75 Respiratory Rate 18 18 Blood Pressure Pulse Oximetry 94 Oxygen Delivery Nasal Cannula Oxygen Flow Rate 3 09/20/23 22:36 09/20/23 22:37 09/20/23 22:00 Temperature Pulse Rate 71 71 Respiratory Rate Blood Pressure 106/73 Pulse Oximetry Oxygen Delivery Oxygen Flow Rate 09/20/23 21:55 09/20/23 22:22 09/20/23 21:22 Temperature Pulse Rate 68 80 Respiratory Rate 18 21 H Blood Pressure 113/70 106/75 Pulse Oximetry 100 92 Oxygen Delivery Non-Rebreather Mask Nasal Cannula Nasal Cannula Oxygen Flow Rate 15 3 09/21/23 05:14 09/21/23 08:00 Temperature 36.3 C L Pulse Rate 58 L Respiratory Rate 14 Blood Pressure 141/59 H Pulse Oximetry 97 Oxygen Delivery Nasal Cannula Oxygen Flow Rate 2 Intake/Output Intake/Output: Intake & Output 09/18/23 09/19/23 09/20/23 09/21/23 23:59 23:59 23:59 23:59 Intake Total 2410 1820.8 1449.2 Output Total 836 192 6722 350 Balance 1935 1120.8 299.2 -350 Meds/Results Medications: Active Medications Generic Name Dose Route Start Last Admin Trade Name Freq PRN Reason Stop Dose Admin Acetaminophen 650 mg 09/20/23 23:11 Acetaminophen 650 Mg Suppository RECTAL Q6H PRN Pain or Fever Atropine Sulfate 1 - 2 drop 09/20/23 23:11 Atropine Sulfate 1% Ophth Soln 5 Ml Bottle SUBLINGUAL Q4H PRN Secretions Bisacodyl 10 mg 09/17/23 07:30 Bisacodyl 10 Mg Suppository RECTAL DAILY PRN Constipation Lorazepam 2 mg 0
[2023-09-21] MEDS: LORazepam INJ (*CRX) 2 MG/ML VIAL IV PUSH (14:18)
[2023-09-22 07:17] LABS: Legionella pneumophila Ag Ur Not Detected
[2023-09-22 07:23] LABS: Pneumococcal Antigen Urine 242
--- NOTE | 2023-09-22 07:28 | PM.DS ---
DS: Admitting Diagnosis Discharge Date 09/21/23 Admitting Diagnosis Acute on chronic respiratory failure with hypoxia, congestive heart failure, hypokalemia DS: Discharge Diagnosis Discharge Diagnosis (1) End of life care: Code(s): Z51.5 - Encounter for palliative care Status: Acute (2) Dysphagia: Code(s): R13.10 - Dysphagia, unspecified Status: Acute (3) Urethral catheter present for long-term use: Code(s): Z96.0 - Presence of urogenital implants Status: Acute (4) Pneumonia: Qualifiers: Laterality: right Lung location: lower lobe of lung Pneumonia type: due to unspecified organism Qualified Code(s): J18.9 - Pneumonia, unspecified organism Code(s): J18.9 - Pneumonia, unspecified organism Status: Acute (5) Hypomagnesemia: Code(s): E83.42 - Hypomagnesemia Status: Acute (6) Decubitus ulcer of sacral region, stage 2: Code(s): L89.152 - Pressure ulcer of sacral region, stage 2 Status: Chronic (7) CHF (congestive heart failure): Qualifiers: Heart failure chronicity: acute on chronic Heart failure type: combined systolic and diastolic Qualified Code(s): I50.43 - Acute on chronic combined systolic (congestive) and diastolic (congestive) heart failure Code(s): I50.9 - Heart failure, unspecified Status: Acute (8) Chronic respiratory failure: Qualifiers: Respiratory failure complication: hypoxia Qualified Code(s): J96.11 - Chronic respiratory failure with hypoxia Code(s): J96.10 - Chronic respiratory failure, unspecified whether with hypoxia or hypercapnia Status: Chronic Plan # end of life care -patient under comfort care orders -patient appears to have pneumonia, likely aspiration from dysphagia -hospice consulted: Hospice to meet the family this afternoon # right lower lobe pneumonia -was being treated with cefepime, azithromycin, vancomycin, discontinue antibiotics for comfort care -plan was for PEG tube however with the change in status, family has opted for comfort care measures # electrolyte imbalances -hypomagnesemia, hypokalemia # chronic conditions -chronic hypoxic respiratory failure 3L O2 by nasal cannula -type 2 diabetes: Was recent A1c 6.4 -chronic indwelling Dudley catheter: MRSA in urine -MALLORY: Patient refused CPAP -paroxysmal atrial fibrillation: In sinus rhythm, no anticoagulation prior to hospitalization Diet: palliative DVT prophylaxis: Not indicated Code status: DNR Disposition: inpatient hospice date of service 09/21/23 DS: Summary Hospital Course Reason for hospitalization: Hypokalemia, right lower lobe pneumonia Hospital Course: Patient 83-year-old male with a history of CVA, COPD on 3 L home oxygen, atrial fibrillation CHF, CAD, type 2 diabetes resident of a nursing with chronic indwelling Dudley catheter present 09/17/2023 hypokalemia. At the nursing facility he had potassium level 2.3 as well as increased oxygen requirements and decreased responsiveness. He was found to have RLL infiltrate consistent with RLL pneumonia. He has a pattern of aspiration pneumonia attributed to dysphagia. With his history of resistant klebsiella he was placed on cefepime and azithromycin. Family was opting for PEG tube however he decompensated on the evening of 09/20/2023. He was in respiratory distress and was placed on a non-rebreather. Family meeting was had that evening, in which family has opted for comfort care measures. He was seen by hospice on 09/21/2023 and transitioned to inpatient hospice. Status at Discharge Cognitive/behavioral status at discharge: stable Time Spent with Patient Time attestation: Total time spent providing and/or coordinating discharge services: 35 minutes Exam Narrative: - GENERAL: Frail ill-appearing male in no acute distress - HENT: Dry mucous membranes. - LUNGS: Diminished breath sounds - CARDIOVASCULAR: Regular rate
== END 2023-09-21 14:49 | disposition hospice, home (50) | DRG 193 ==
LOC: ANHED 20:05 → ANH3MEDSUR 20:41 → ANH2MED 22:30
PROVIDERS: Emergency Medicine; Nurse Practitioner; Physician Assistant; Student in an Organized Health Care Education/Training Program; Admitting Provider General Practice; Emergency Provider Student in an Organized Health Care Education/Training Program; PCP Internal Medicine; Visit Provider Student in an Organized Health Care Education/Training Program
DX: J18.9 Pneumonia, unspecified organism (principal); I50.43 Acute on chronic combined systolic (congestive) and diastolic (congestive) heart failure; J96.21 Acute and chronic respiratory failure with hypoxia; J96.22 Acute and chronic respiratory failure with hypercapnia; J44.0 Chronic obstructive pulmonary disease with (acute) lower respiratory infection; R64 Cachexia; B95.62 Methicillin resistant Staphylococcus aureus infection as the cause of diseases classified elsewhere; R13.10 Dysphagia, unspecified; E83.42 Hypomagnesemia; L89.152 Pressure ulcer of sacral region, stage 2; I25.10 Atherosclerotic heart disease of native coronary artery without angina pectoris; G47.33 Obstructive sleep apnea (adult) (pediatric); E87.6 Hypokalemia; I48.0 Paroxysmal atrial fibrillation; M19.90 Unspecified osteoarthritis, unspecified site; D64.9 Anemia, unspecified; J69.0 Pneumonitis due to inhalation of food and vomit; E11.42 Type 2 diabetes mellitus with diabetic polyneuropathy; E86.0 Dehydration; N40.0 Benign prostatic hyperplasia without lower urinary tract symptoms; K74.60 Unspecified cirrhosis of liver; M48.00 Spinal stenosis, site unspecified; Z51.5 Encounter for palliative care; Z99.81 Dependence on supplemental oxygen; Z86.73 Personal history of transient ischemic attack (TIA), and cerebral infarction without residual deficits; I25.2 Old myocardial infarction; Z87.11 Personal history of peptic ulcer disease; Z98.42 Cataract extraction status, left eye; Z98.41 Cataract extraction status, right eye; Z20.822 Contact with and (suspected) exposure to COVID-19; Z66 Do not resuscitate; Z68.22 Body mass index [BMI] 22.0-22.9, adult
CPT/HCPCS: 36415; 71045; 80048; 80053; 80069; 80202; 81001; 82565; 82948; 83735; 83880; 84145; 84484; 85025; 85027; 86738; 87070; 87077; 87086; 87088; 87181; 87205; 87449; 87637; 87641; 87899; 92526; 92610; 93005; 94640; 96365; 96366; 96367; 96368; 99285; A9270; G0378; J0456; J0692; J0696; J1650; J2060; J2270; J3370; J3475; J3480; J7030; J7040; J7120

== ENCOUNTER 2023-09-21 11:20 | HOS | payer OTHER, MEDICARE, MEDICAID, SELFPAY ==
[2023-09-21 16:15] VITALS: PULSE 88; RESP 18
[2023-09-21] MEDS: MORPHINE SULFATE INJ (*CRX) 50 MG in SODIUM CHLORIDE 0.9% IV 95 ML IV CONT (16:15)
--- NOTE | 2023-09-21 17:00 | PM.IMHP ---
H&P: HPI History of Present Illness Date/Time: 09/21/23 17:00 Chief Complaint: Uncontrolled dyspnea and discomfort Narrative: 83 y/o male [place] resident with multiple chronic co-morbidities was sent to [facility] via EMS on 09/15 due to decreased LOC, hypokalemia, and hypoxia. He was found to have RLL infiltrate, presumably due to aspiration, COPD exacerbation, and acute on chronic respiratory failure. His chronic dysphagia was worsening prior to admission. But by hospital admission, he was unable to pass a barium swallow. A PEG was planned but in spite of appropriate antibiotic therapy and correction of potassium, he failed to improve. He was dyspneic and restless. Therefore, his family opted for comfort care only and elected to have this done on the inpatient hospice service due to failure to control symptoms with intermittent morphine dosing. [facility] Past Medical History Medical History Arthritis Atrial flutter Benign prostatic hyperplasia Cerebrovascular accident 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 Chronic anemia Chronic obstructive pulmonary disease Chronic pain Patient had a pain pump inserted in February 2019. Chronic respiratory failure with hypoxia, on home oxygen therapy Baseline oxygen requirement is 3 L nasal cannula. Congestive heart failure Echocardiogram February 2021: EF 55-60% (improved from prior echo of 45%) left ventricular septal wall motion abnormal related to bundle-branch block, grade 2 diastolic dysfunction, severe pulmonary hypertension with RVSP of 74, severe enlargement of the right atrium Coronary artery disease Diabetic neuropathy Gastroesophageal reflux disease History of bleeding peptic ulcer History of myocardial infarction Hypertension Iron deficiency anemia Receives frequent iron infusions. Liver cirrhosis Moderate pulmonary hypertension Estimated pulmonary arterial systolic pressure was 54 mmHg on echocardiogram dated 10/25/2020. Obstructive sleep apnea Paroxysmal atrial fibrillation Pseudobulbar affect Spinal stenosis Type 2 diabetes mellitus Hemoglobin A1c was 6.3% on 10/25/2020. Surgical History Surgical History History of bilateral cataract extraction History of bowel resection Dr Torres (2008) Cinebar and approx 2014 History of hernia repair 3 Family History Family History Father Acute myocardial infarction Sibling Acute myocardial infarction Brain aneurysm Other No problems noted. Mother Breast cancer Social History Social History (Updated 09/21/23 @ 17:01 by Richardson Plummer MD) Social History: Healthcare power of commercial real estate attorney: Lennie Cruz, granddaughter. Code status: DNR Smoking packs per day: 3 Smoking cigarettes per day: 60.0 Years smoked: 30 Smoking pack-years: 90.00 Smoking status: Never smoker Second hand tobacco smoke exposure: No Additional smoking assessment comments: quit 25 years ago Alcohol intake: never Substance use: never Substance use type: does not use Do You Feel Safe in your Home?: Yes Lack of Transportation: No Lack of Food: Never True Current Housing: I Have Housing Concerned About Future Housing: No Difficulty Paying Gas/Electric Bills: No Difficulty Paying for Meds: No Currently Unemployed: No Education: Grade School Difficulty w/ Childcare or Family Care: No Living arrangements: jail Additional living arrangements comments: Resides at [facility] since 07/08/2023. He is bedbound. 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 Spiritual care concerns: No Meds Home Medications and Allergies Home Medications Medication Instructions Recorded Confirmed
[2023-09-21 19:54] VITALS: PULSE 88; RESP 18
[2023-09-22 08:00] VITALS: O2SAT 100
[2023-09-22] MEDS: MORPHINE SULFATE (*CRX) 2 MG/ML INJ IV PUSH ×2 (08:03→20:48)
[2023-09-22 11:29] VITALS: BP 116/68; PULSE 93; RESP 16; TEMP 36.4; O2SAT 100
[2023-09-22] MEDS: LORazepam INJ (*CRX) 2 MG/ML VIAL 1 MG IV PUSH (12:58)
[2023-09-22 16:37] VITALS: PULSE 93; RESP 16
[2023-09-22] MEDS: MORPHINE SULFATE INJ (*CRX) 50 MG in SODIUM CHLORIDE 0.9% IV 95 ML IV CONT (16:37)
[2023-09-22 20:00] VITALS: BP 114/64; PULSE 99; RESP 16; TEMP 35.9; O2SAT 95
[2023-09-22 20:35] VITALS: RESP 16; O2SAT 95
--- NOTE | 2023-09-22 20:54 | PM.IMPN ---
Progress Note: A&P Assessment and Plan (1) Palliative care encounter: Code(s): Z51.5 - Encounter for palliative care Status: Acute Assessment and Plan: Meets inpatient hospice criteria due to requiring continuous IV morphine for control of dyspnea and discomfort. PRN palliative regiment ordered. (2) Acute on chronic respiratory failure with hypoxia and hypercapnia: Code(s): J96.21 - Acute and chronic respiratory failure with hypoxia; J96.22 - Acute and chronic respiratory failure with hypercapnia Status: Acute (3) Right lower lobe pneumonia: Code(s): J18.9 - Pneumonia, unspecified organism Status: Acute (4) CHF (congestive heart failure): Qualifiers: Heart failure chronicity: acute on chronic Heart failure type: combined systolic and diastolic Qualified Code(s): I50.43 - Acute on chronic combined systolic (congestive) and diastolic (congestive) heart failure Code(s): I50.9 - Heart failure, unspecified Status: Acute (5) Dysphagia: Code(s): R13.10 - Dysphagia, unspecified Status: Acute (6) Chronic obstructive pulmonary disease: Code(s): J44.9 - Chronic obstructive pulmonary disease, unspecified Status: Acute (7) Liver cirrhosis: Code(s): K74.60 - Unspecified cirrhosis of liver Status: Acute (8) Decubitus ulcer of sacral region, stage 2: Code(s): L89.152 - Pressure ulcer of sacral region, stage 2 Status: Chronic (9) Atrial flutter: Code(s): I48.92 - Unspecified atrial flutter Status: Acute (10) Abdominal distension: Code(s): R14.0 - Abdominal distension (gaseous) Status: Acute (11) BPH (benign prostatic hyperplasia): Code(s): N40.0 - Benign prostatic hyperplasia without lower urinary tract symptoms Status: Acute (12) CAD (coronary artery disease): Code(s): I25.10 - Atherosclerotic heart disease of [place] coronary artery without angina pectoris Status: Acute (13) Hypertension: Code(s): I10 - Essential (primary) hypertension Status: Chronic (14) Type 2 diabetes mellitus: Qualifiers: Diabetes mellitus senior care insulin use: without bariatric physician use Diabetes mellitus complication status: without complication Qualified Code(s): E11.9 - Type 2 diabetes mellitus without complications Code(s): E11.9 - Type 2 diabetes mellitus without complications Status: Chronic Subjective Date/time seen: 09/22/23 20:54 Interval history: Remains comfortable on current morphine infusion. Review of Systems Review of Systems: ROS unobtainable: Yes unobtainable due to medical condition Exam Narrative: Sleeping elderly male who appears comfortable on continuous morphine infusion. No JVD. Chest coarse crackles bilaterally. Heart NL S1,2 RR, no audible murmur. Extr no edema. Abd BS hypoactive, no palpable mass. MS w/o gross deformity to visual inspection. Neuro CN 3-12 symmetric to visual inspection. Psych unresponsive to verbal or tactile stimuli. Objective Data Vital Signs Vital Signs: Vital Signs - 24 hr 09/22/23 11:29 09/22/23 08:00 09/22/23 16:37 Temperature 97.6 F Pulse Rate 93 93 Respiratory Rate 16 16 Blood Pressure 116/68 Pulse Oximetry 100 100 Oxygen Delivery Nasal Cannula Oxygen Flow Rate 2 09/22/23 16:37 09/22/23 20:00 Temperature 96.7 F L Pulse Rate 93 99 Respiratory Rate 16 16 Blood Pressure 114/64 Pulse Oximetry 95 Oxygen Delivery Oxygen Flow Rate Intake/Output Intake/Output: Intake & Output 09/19/23 09/20/23 09/21/23 09/22/23 23:59 23:59 23:59 23:59 Intake Total 48.7 Output Total 300 600 Balance -300 -551.3 Meds/Results Medications: Active Medications Generic Name Dose Route Start Last Admin Trade Name Freq PRN Reason Stop Dose Admin Artificial Tears 1 - 2 drop 09/21/23 15:45 Artificial Tears Ophth Soln 15 Ml Bottle EACH EY
[2023-09-23] MEDS: LORazepam INJ (*CRX) 2 MG/ML VIAL 1 MG IV PUSH ×3 (00:13→22:26)
[2023-09-23 08:00] VITALS: O2SAT 100
[2023-09-23 08:25] VITALS: BP 120/63; PULSE 90; RESP 18; TEMP 36.6; O2SAT 100
[2023-09-23 15:39] VITALS: PULSE 90; RESP 18
[2023-09-23] MEDS: MORPHINE SULFATE INJ (*CRX) 50 MG in SODIUM CHLORIDE 0.9% IV 95 ML IV CONT (15:39)
--- NOTE | 2023-09-23 16:53 | PM.IMPN ---
Progress Note: A&P Assessment and Plan (1) Palliative care encounter: Code(s): Z51.5 - Encounter for palliative care Status: Acute Assessment and Plan: Meets inpatient hospice criteria due to requiring continuous IV morphine for control of dyspnea and discomfort. PRN palliative regiment ordered. (2) Acute on chronic respiratory failure with hypoxia and hypercapnia: Code(s): J96.21 - Acute and chronic respiratory failure with hypoxia; J96.22 - Acute and chronic respiratory failure with hypercapnia Status: Acute (3) Right lower lobe pneumonia: Code(s): J18.9 - Pneumonia, unspecified organism Status: Acute (4) CHF (congestive heart failure): Qualifiers: Heart failure chronicity: acute on chronic Heart failure type: combined systolic and diastolic Qualified Code(s): I50.43 - Acute on chronic combined systolic (congestive) and diastolic (congestive) heart failure Code(s): I50.9 - Heart failure, unspecified Status: Acute (5) Dysphagia: Code(s): R13.10 - Dysphagia, unspecified Status: Acute (6) Chronic obstructive pulmonary disease: Code(s): J44.9 - Chronic obstructive pulmonary disease, unspecified Status: Acute (7) Liver cirrhosis: Code(s): K74.60 - Unspecified cirrhosis of liver Status: Acute (8) Decubitus ulcer of sacral region, stage 2: Code(s): L89.152 - Pressure ulcer of sacral region, stage 2 Status: Chronic (9) Atrial flutter: Code(s): I48.92 - Unspecified atrial flutter Status: Acute (10) Abdominal distension: Code(s): R14.0 - Abdominal distension (gaseous) Status: Acute (11) BPH (benign prostatic hyperplasia): Code(s): N40.0 - Benign prostatic hyperplasia without lower urinary tract symptoms Status: Acute (12) CAD (coronary artery disease): Code(s): I25.10 - Atherosclerotic heart disease of [place] coronary artery without angina pectoris Status: Acute (13) Hypertension: Code(s): I10 - Essential (primary) hypertension Status: Chronic (14) Type 2 diabetes mellitus: Qualifiers: Diabetes mellitus retirement insulin use: without oil heaterman use Diabetes mellitus complication status: without complication Qualified Code(s): E11.9 - Type 2 diabetes mellitus without complications Code(s): E11.9 - Type 2 diabetes mellitus without complications Status: Chronic Subjective Date/time seen: 09/23/23 16:53 Interval history: More anxious today and not resting well. Hx anxiety per family. Scheduled lorazepam initiated. Review of Systems Review of Systems: ROS unobtainable: Yes unobtainable due to medical condition Exam Narrative: Sleeping elderly male who appears comfortable on continuous morphine infusion. No JVD. Chest coarse crackles bilaterally. Heart NL S1,2 RR, no audible murmur. Extr no edema. Abd BS hypoactive, no palpable mass. MS w/o gross deformity to visual inspection. Neuro CN 3-12 symmetric to visual inspection. Psych unresponsive to verbal or tactile stimuli. Objective Data Vital Signs Vital Signs: Vital Signs - 24 hr 09/22/23 20:00 09/22/23 20:35 09/23/23 08:25 Temperature 96.7 F L 97.8 F Pulse Rate 99 90 Respiratory Rate 16 16 18 Blood Pressure 114/64 120/63 Pulse Oximetry 95 95 100 Oxygen Delivery Nasal Cannula Oxygen Flow Rate 2 09/23/23 08:00 09/23/23 11:47 09/23/23 15:39 Temperature Pulse Rate 90 Respiratory Rate 18 Blood Pressure Pulse Oximetry 100 Oxygen Delivery Nasal Cannula Nasal Cannula Oxygen Flow Rate 3 3 09/23/23 15:39 Temperature Pulse Rate 90 Respiratory Rate 18 Blood Pressure Pulse Oximetry Oxygen Delivery Oxygen Flow Rate Intake/Output Intake/Output: Intake & Output 09/20/23 09/21/23 09/22/23 09/23/23 23:59 23:59 23:59 23:59 Intake Total 48.7 46.1 Output Total 300 600 150 Balance -300 -551.3
[2023-09-23] MEDS: MORPHINE SULFATE (*CRX) 2 MG/ML INJ IV PUSH ×2 (17:24→23:07)
[2023-09-23 21:23] VITALS: BP 128/65; PULSE 120; RESP 16; TEMP 36.3; O2SAT 94
[2023-09-23 22:20] VITALS: RESP 16; O2SAT 94
[2023-09-24] MEDS: GLYCOPYRROLATE INJ (*SP) 0.2 MG/ML VIAL 0.1 MG IV PUSH (00:01)
[2023-09-24] MEDS: LORazepam INJ (*CRX) 2 MG/ML VIAL 1 MG IV PUSH ×3 (05:47→21:08)
[2023-09-24 06:00] VITALS: BP 114/57; PULSE 117; RESP 18; TEMP 35.8; O2SAT 99
[2023-09-24 06:11] VITALS: PULSE 120; RESP 16
--- NOTE | 2023-09-24 07:20 | PC.NURSE ---
This morning [facility] nurse came to check on pt. Hospice nurse asked if any PRN meds have been given overnight and how we doing. I told the hospice nurse that I had given pt one time administrations of PRN morphine and PRN Robinul. I told the nurse that at the start of shift pt was really restless, pulling at his gown, oxygen, and Dudley. I told the nurse that I have given pt his scheduled Ativan and that seems to have helped but that I think he may still need an increase in dosage of his morphine drip or one of his PRNs for continued restlessness. Hospice nurse said she would try to get a hold of Dr. Plummer and come back to let me know if there are any changes made. At 0606 hospice nurse came back to tell me she spoke with Dr. Kojo Sommers and he had given orders to increase drip dose to 3 mg/hr. Changes made to drip @ 0611 and documented in MAY.
[2023-09-24 08:00] VITALS: BP 117/56; PULSE 113; RESP 12; TEMP 36.4; O2SAT 96
[2023-09-24 13:53] VITALS: O2SAT 96
[2023-09-24 16:24] VITALS: PULSE 113; RESP 12
[2023-09-24] MEDS: MORPHINE SULFATE INJ (*CRX) 50 MG in SODIUM CHLORIDE 0.9% IV 95 ML 6 MG IV CONT (16:24)
--- NOTE | 2023-09-24 17:27 | PM.IMPN ---
Progress Note: A&P Assessment and Plan (1) Palliative care encounter: Code(s): Z51.5 - Encounter for palliative care Status: Acute Assessment and Plan: Meets inpatient hospice criteria due to requiring continuous IV morphine for control of dyspnea and discomfort. PRN palliative regiment ordered. (2) Acute on chronic respiratory failure with hypoxia and hypercapnia: Code(s): J96.21 - Acute and chronic respiratory failure with hypoxia; J96.22 - Acute and chronic respiratory failure with hypercapnia Status: Acute (3) Right lower lobe pneumonia: Code(s): J18.9 - Pneumonia, unspecified organism Status: Acute (4) CHF (congestive heart failure): Qualifiers: Heart failure chronicity: acute on chronic Heart failure type: combined systolic and diastolic Qualified Code(s): I50.43 - Acute on chronic combined systolic (congestive) and diastolic (congestive) heart failure Code(s): I50.9 - Heart failure, unspecified Status: Acute (5) Dysphagia: Code(s): R13.10 - Dysphagia, unspecified Status: Acute (6) Chronic obstructive pulmonary disease: Code(s): J44.9 - Chronic obstructive pulmonary disease, unspecified Status: Acute (7) Liver cirrhosis: Code(s): K74.60 - Unspecified cirrhosis of liver Status: Acute (8) Decubitus ulcer of sacral region, stage 2: Code(s): L89.152 - Pressure ulcer of sacral region, stage 2 Status: Chronic (9) Atrial flutter: Code(s): I48.92 - Unspecified atrial flutter Status: Acute (10) Abdominal distension: Code(s): R14.0 - Abdominal distension (gaseous) Status: Acute (11) BPH (benign prostatic hyperplasia): Code(s): N40.0 - Benign prostatic hyperplasia without lower urinary tract symptoms Status: Acute (12) CAD (coronary artery disease): Code(s): I25.10 - Atherosclerotic heart disease of [place] coronary artery without angina pectoris Status: Acute (13) Hypertension: Code(s): I10 - Essential (primary) hypertension Status: Chronic (14) Type 2 diabetes mellitus: Qualifiers: 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 Hx anxiety per family. Scheduled lorazepam initiated. Review of Systems Review of Systems: ROS unobtainable: Yes unobtainable due to medical condition Exam Narrative: Sleeping elderly male who appears comfortable on continuous morphine infusion. No JVD. Chest coarse crackles bilaterally. Heart NL S1,2 RR, no audible murmur. Extr no edema. Abd BS hypoactive, no palpable mass. MS w/o gross deformity to visual inspection. Neuro CN 3-12 symmetric to visual inspection. Psych unresponsive to verbal or tactile stimuli. Objective Data Vital Signs Vital Signs: Vital Signs - 24 hr 09/23/23 21:23 09/23/23 22:20 09/24/23 06:11 Temperature 97.3 F L Pulse Rate 120 H 120 H Respiratory Rate 16 16 16 Blood Pressure 128/65 Pulse Oximetry 94 94 Oxygen Delivery Nasal Cannula Oxygen Flow Rate 3 09/24/23 06:00 09/24/23 08:00 09/24/23 13:53 Temperature 96.4 F L Pulse Rate 117 H Respiratory Rate 18 Blood Pressure 114/57 L Pulse Oximetry 99 96 Oxygen Delivery Nasal Cannula Nasal Cannula Oxygen Flow Rate 3 3 09/24/23 08:00 09/24/23 16:24 09/24/23 16:24 Temperature 97.5 F L Pulse Rate 113 H 113 H 113 H Respiratory Rate 12 12 12 Blood Pressure 117/56 L Pulse Oximetry 96 Oxygen Delivery Oxygen Flow Rate Intake/Output Intake/Output: Intake & Output 09/21/23 09/22/23 09/23/23 09/24/23 23:59 2
[2023-09-24 20:00] VITALS: BP 112/57; PULSE 112; RESP 14; TEMP 35.8; O2SAT 94
[2023-09-25] MEDS: LORazepam INJ (*CRX) 2 MG/ML VIAL 1 MG IV PUSH (05:29)
[2023-09-25 08:00] VITALS: BP 89/48; PULSE 50; RESP 10; TEMP 30.1; O2SAT 80
[2023-09-25 08:07] VITALS: O2SAT 92
[2023-09-25 08:30] VITALS: O2SAT 92
[2023-09-25 08:32] VITALS: PULSE 108; RESP 10
[2023-09-25] MEDS: MORPHINE SULFATE INJ (*CRX) 50 MG in SODIUM CHLORIDE 0.9% IV 95 ML 6 MG IV CONT (08:32)
--- NOTE | 2023-09-25 19:23 | PM.IMPN ---
Progress Note: A&P Assessment and Plan (1) Palliative care encounter: Code(s): Z51.5 - Encounter for palliative care Status: Acute Assessment and Plan: Meets inpatient hospice criteria due to requiring continuous IV morphine for control of dyspnea and discomfort. PRN palliative regiment ordered. (2) Acute on chronic respiratory failure with hypoxia and hypercapnia: Code(s): J96.21 - Acute and chronic respiratory failure with hypoxia; J96.22 - Acute and chronic respiratory failure with hypercapnia Status: Acute (3) Right lower lobe pneumonia: Code(s): J18.9 - Pneumonia, unspecified organism Status: Acute (4) CHF (congestive heart failure): Qualifiers: Heart failure chronicity: acute on chronic Heart failure type: combined systolic and diastolic Qualified Code(s): I50.43 - Acute on chronic combined systolic (congestive) and diastolic (congestive) heart failure Code(s): I50.9 - Heart failure, unspecified Status: Acute (5) Dysphagia: Code(s): R13.10 - Dysphagia, unspecified Status: Acute (6) Chronic obstructive pulmonary disease: Code(s): J44.9 - Chronic obstructive pulmonary disease, unspecified Status: Acute (7) Liver cirrhosis: Code(s): K74.60 - Unspecified cirrhosis of liver Status: Acute (8) Decubitus ulcer of sacral region, stage 2: Code(s): L89.152 - Pressure ulcer of sacral region, stage 2 Status: Chronic (9) Atrial flutter: Code(s): I48.92 - Unspecified atrial flutter Status: Acute (10) Abdominal distension: Code(s): R14.0 - Abdominal distension (gaseous) Status: Acute (11) BPH (benign prostatic hyperplasia): Code(s): N40.0 - Benign prostatic hyperplasia without lower urinary tract symptoms Status: Acute (12) CAD (coronary artery disease): Code(s): I25.10 - Atherosclerotic heart disease of [place] coronary artery without angina pectoris Status: Acute (13) Hypertension: Code(s): I10 - Essential (primary) hypertension Status: Chronic (14) Type 2 diabetes mellitus: Qualifiers: Diabetes mellitus custodial insulin use: without salvage determiner use Diabetes mellitus complication status: without complication Qualified Code(s): E11.9 - Type 2 diabetes mellitus without complications Code(s): E11.9 - Type 2 diabetes mellitus without complications Status: Chronic Subjective Date/time seen: 09/25/23 19:23 Interval history: Very comfortable today. Review of Systems Review of Systems: ROS unobtainable: Yes unobtainable due to medical condition Exam Narrative: Sleeping elderly male who appears comfortable on continuous morphine infusion. No JVD. Chest coarse crackles bilaterally. Heart NL S1,2 RR, no audible murmur. Extr no edema. Abd BS hypoactive, no palpable mass. MS w/o gross deformity to visual inspection. Neuro CN 3-12 symmetric to visual inspection. Psych unresponsive to verbal or tactile stimuli. Objective Data Vital Signs Vital Signs: Vital Signs - 24 hr 09/24/23 20:00 09/25/23 08:07 09/25/23 08:32 Temperature 96.5 F L Pulse Rate 112 H 108 H Respiratory Rate 14 10 L Blood Pressure 112/57 L Pulse Oximetry 94 92 Oxygen Delivery Nasal Cannula Oxygen Flow Rate 3 Fraction of Inspired Oxygen 36 09/25/23 08:32 09/25/23 08:00 09/25/23 08:30 Temperature 86.1 F L Pulse Rate 108 H 50 L Respiratory Rate 10 L 10 L Blood Pressure 89/48 L Pulse Oximetry 80 L 92 Oxygen Delivery Nasal Cannula Oxygen Flow Rate 3 Fraction of Inspired Oxygen 36 Intake/Output Intake/Output: Intake & Output 09/22/23 09/23/23 09/24/23 09/25/23 23:59 23:59 23:59 23:59 Intake Total 48.7 46.1 90.4 96.8 Output Total 600 375 300 5 Balance -551.3 -328.9 -209.6 91.8 Meds/Results Medications: Active Medications Generic Name Dose Route Start Last Admin Trade Name F
[2023-09-25 23:35] VITALS: BP 90/47; PULSE 39; RESP 8; TEMP 27.8; O2SAT 40
[2023-09-26] VITALS (7 sets, daily range): BP systolic 58–75; BP diastolic 38; PULSE 0–100; RESP 0–14; O2SAT 53–94
[2023-09-26] MEDS: MORPHINE SULFATE INJ (*CRX) 50 MG in SODIUM CHLORIDE 0.9% IV 95 ML 6 MG IV CONT ×2 (00:33→15:58)
--- NOTE | 2023-09-26 14:04 | PM.IMPN ---
Progress Note: A&P Assessment and Plan (1) Palliative care encounter: Code(s): Z51.5 - Encounter for palliative care Status: Acute Assessment and Plan: Meets inpatient hospice criteria due to requiring continuous IV morphine for control of dyspnea and discomfort. PRN palliative regiment ordered. (2) Acute on chronic respiratory failure with hypoxia and hypercapnia: Code(s): J96.21 - Acute and chronic respiratory failure with hypoxia; J96.22 - Acute and chronic respiratory failure with hypercapnia Status: Acute (3) Right lower lobe pneumonia: Code(s): J18.9 - Pneumonia, unspecified organism Status: Acute (4) CHF (congestive heart failure): Qualifiers: Heart failure chronicity: acute on chronic Heart failure type: combined systolic and diastolic Qualified Code(s): I50.43 - Acute on chronic combined systolic (congestive) and diastolic (congestive) heart failure Code(s): I50.9 - Heart failure, unspecified Status: Acute (5) Dysphagia: Code(s): R13.10 - Dysphagia, unspecified Status: Acute (6) Chronic obstructive pulmonary disease: Code(s): J44.9 - Chronic obstructive pulmonary disease, unspecified Status: Acute (7) Liver cirrhosis: Code(s): K74.60 - Unspecified cirrhosis of liver Status: Acute (8) Decubitus ulcer of sacral region, stage 2: Code(s): L89.152 - Pressure ulcer of sacral region, stage 2 Status: Chronic (9) Atrial flutter: Code(s): I48.92 - Unspecified atrial flutter Status: Acute (10) Abdominal distension: Code(s): R14.0 - Abdominal distension (gaseous) Status: Acute (11) BPH (benign prostatic hyperplasia): Code(s): N40.0 - Benign prostatic hyperplasia without lower urinary tract symptoms Status: Acute (12) CAD (coronary artery disease): Code(s): I25.10 - Atherosclerotic heart disease of [place] coronary artery without angina pectoris Status: Acute (13) Hypertension: Code(s): I10 - Essential (primary) hypertension Status: Chronic (14) Type 2 diabetes mellitus: Qualifiers: Diabetes mellitus salvage determiner insulin use: without salvage determiner use Diabetes mellitus complication status: without complication Qualified Code(s): E11.9 - Type 2 diabetes mellitus without complications Code(s): E11.9 - Type 2 diabetes mellitus without complications Status: Chronic Subjective Date/time seen: 09/26/23 14:04 Interval history: Very comfortable today. Review of Systems Review of Systems: ROS unobtainable: Yes unobtainable due to medical condition Exam Narrative: Sleeping elderly male who appears comfortable on continuous morphine infusion. No JVD. Chest coarse crackles bilaterally. Heart NL S1,2 RR, no audible murmur. Extr no edema. Abd BS hypoactive, no palpable mass. MS w/o gross deformity to visual inspection. Neuro CN 3-12 symmetric to visual inspection. Psych unresponsive to verbal or tactile stimuli. Objective Data Vital Signs Vital Signs: Vital Signs - 24 hr 09/26/23 00:33 09/26/23 00:33 09/25/23 23:35 Temperature 82.1 F L Pulse Rate 99 99 39 L Respiratory Rate 14 14 8 L Blood Pressure 90/47 L Pulse Oximetry 40 L Oxygen Delivery Oxygen Flow Rate 09/26/23 08:41 09/26/23 09:00 Temperature Pulse Rate Respiratory Rate Blood Pressure Pulse Oximetry 94 94 Oxygen Delivery Nasal Cannula Nasal Cannula Oxygen Flow Rate 3 3 Intake/Output Intake/Output: Intake & Output 09/23/23 09/24/23 09/25/23 09/26/23 23:59 23:59 23:59 23:59 Intake Total 46.1 90.4 96.8 96.1 Output Total 375 300 5 0 Balance -328.9 -209.6 91.8 96.1 Meds/Results Medications: Active Medications Generic Name Dose Route Start Last Admin Trade Name Freq PRN Reason Stop Dose Admin Artificial Tears 1 - 2 drop 09/21/23 15:45 Artificial Tears Ophth Soln 15 Ml Bottle EACH EY
--- NOTE | 2023-09-26 23:21 | PC.NURSE ---
Patient at 2300 on 09/26/2023.
--- NOTE | 2023-09-27 00:04 | PC.NURSE ---
Patient taken to [facility] [place] at 0000.
--- NOTE | 2023-09-27 07:19 | PM.DDS ---
Discharge Summary Date and Time Date of : 09/26/23 Time of : 23:00 Provider Pronounced By: 2 RNs Name of First RN That Pronounced: Reddy Vila RN Name of Second RN That Pronounced: Warren Carpenter RN Probable Cause of Probable Cause of : Acute Respiratory failure due to pneumonia Summary Hospital Course: Admitted to inpatient hospice service for symptoms management. Medications were titrated to comfort. Mr. Orellana peacefully. Additional Data Confirmation of as documented by pronouncing clinician: Pupillary Reflex, Palpable Pulses, Response to Stimuli, Heart Tones and Breath Sounds Name of Provider Notified: Dr. Richardson Plummer Time Provider Notified: 23:13 Provider Requests Autopsy: No Family Requests Autopsy: No (Family declines.) Band Scroll Saw Operator Notified: Yes Date [facility] Notified of : 09/26/23 Time [facility] Notified of : 23:14
== END 2023-09-26 23:00 | disposition expired | DRG 951 ==
LOC: ANH2MED 10-01 11:51
PROVIDERS: Admitting Provider Internal Medicine; PCP Internal Medicine; Visit Provider Internal Medicine
DX: Z51.5 Encounter for palliative care (principal); J96.21 Acute and chronic respiratory failure with hypoxia; J96.22 Acute and chronic respiratory failure with hypercapnia; J18.9 Pneumonia, unspecified organism; I50.43 Acute on chronic combined systolic (congestive) and diastolic (congestive) heart failure; J44.0 Chronic obstructive pulmonary disease with (acute) lower respiratory infection; I48.92 Unspecified atrial flutter; R13.10 Dysphagia, unspecified; K74.60 Unspecified cirrhosis of liver; L89.152 Pressure ulcer of sacral region, stage 2; R14.0 Abdominal distension (gaseous); N40.0 Benign prostatic hyperplasia without lower urinary tract symptoms; I25.10 Atherosclerotic heart disease of native coronary artery without angina pectoris; E11.9 Type 2 diabetes mellitus without complications; I10 Essential (primary) hypertension; M19.90 Unspecified osteoarthritis, unspecified site; D64.9 Anemia, unspecified; E11.42 Type 2 diabetes mellitus with diabetic polyneuropathy; K21.9 Gastro-esophageal reflux disease without esophagitis; I11.0 Hypertensive heart disease with heart failure; D50.9 Iron deficiency anemia, unspecified; G47.33 Obstructive sleep apnea (adult) (pediatric); I48.0 Paroxysmal atrial fibrillation; M48.00 Spinal stenosis, site unspecified; Z66 Do not resuscitate; Z86.73 Personal history of transient ischemic attack (TIA), and cerebral infarction without residual deficits; Z99.81 Dependence on supplemental oxygen; Z87.11 Personal history of peptic ulcer disease; I25.2 Old myocardial infarction; Z98.42 Cataract extraction status, left eye; Z98.41 Cataract extraction status, right eye
CPT/HCPCS: A9270; J1596; J2060; J2270